=== PATIENT | male | born 1965 | race Caucasian/White ===

== ENCOUNTER 2017-05-05 08:55 | Emergency (ER) | payer BC ==
[2017-05-05 09:01] VITALS: TEMP 98.2; BMI 31.7
[2017-05-05 09:22] LABS: WHITE BLOOD COUNT 5.6 K/mm3 (4.0-10.8)
[2017-05-05] MEDS ORDERED: ASPIRIN 81 MG CHEWABLE TABLETS PO ONE (09:40)
[2017-05-05 09:52] LABS: ALBUMIN 3.3 g/dl (3.5-5.0); ALK PHOS 256 U/L (32-92); ANION GAP 16 (8-16); BILIRUBIN,TOTAL 1.5 mg/dl (0.2-1.0); CO2 19 mmol/L (22-28); GLUCOSE,RANDOM 117 mg/dl (74-106); SGOT/AST 28 U/L (10-42); SGPT/ALT 26 U/L (10-40); TOT PROT 6.6 g/dl (6.4-8.3)
--- NOTE | 2017-05-05 09:52 | PDOC ---
History of Present Illness - General Chief Complaint: Weakness Stated Complaint: SENT FOR EKG EVAL Time Seen by Provider: 05/05/17 09:01 History Source: Patient Exam Limitations: No Limitations - History of Present Illness Initial Comments: 05/05/17 09:52 51 yo M with h/o HTN, HLD, ESRD on dialysis (since ) via subclavian tunneled cathetar, here for abnormal EKG. pt states he saw a new doctor on thursday (4 days ago) . was being evaluated for preop evaluation for peritoneal dialysis cathetar placement scheduled for tomorrow 05/06/17. has had some fatigue, peripheral edema, decreased appetite and sleep, and dry nonproductive cough. denies chest pain. no orthopnea or PND. has noted bilateral peripheral edema. no f/c no n/v. pt states does have a family h/o father with NH ( ) at 62yo. pt has never had a stress test, does not have a support merchandiser. pt pcp dr. canales, no longer seeing him. thursday saw dr. Salgado [phone][address] scheduled to see Dr. Ramos ( vascular surgeon ) 05/05/17 10:40 05/05/17 12:31 Past History - Past Medical History Allergies/Adverse Reactions: Allergies Allergy/AdvReac Type Severity Reaction Status Date / Time Penicillins Allergy Intermediate Verified 05/05/17 08:57 Home Medications: Ambulatory Orders Carvedilol [Coreg] 25 mg PO BID #60 tablet 10/01/16 Calcium Acetate 0 mg PO TID 05/05/17 Valsartan [Diovan] 160 mg PO DAILY 05/05/17 Diabetes: Yes (DIET CONTROLLED) Dialysis: No (not yet ) Disorders: Yes (RENAL INSUFFICIENCY;no hd yet) HTN: Yes Hypercholesterolemia: No Other medical history: DIALYSIS - Psycho/Social/Smoking Cessation Hx Anxiety: No Suicidal Ideation: No Smoking Status: No Smoking History: Never smoked Have you smoked in the past 12 months: No Number of Cigarettes Smoked Daily: 0 Hx Alcohol Use: Yes Drug/Substance Use Hx: No Substance Use Type: Alcohol Hx Substance Use Treatment: No Review of Systems - Review of Systems Constitutional: No: Chills, Diaphoresis, Fever Respiratory: Yes: Cough, Other (dry cough). No: Orthopnea, SOB with Exertion, Productive cough Cardiac (ROS): No: Chest Pain, Edema ABD/GI: No: Abdominal Distended Musculoskeletal: No: Back Pain, Gout Neurological: No: Headache, Numbness All Other Systems: Reviewed and Negative *Physical Exam - Vital Signs Last Vital Signs Temp Pulse Resp BP Pulse Ox 98.2 F 90 18 161/98 100 05/05/17 08:56 05/05/17 08:56 05/05/17 08:56 05/05/17 08:56 05/05/17 08:56 - Physical Exam General Appearance: Yes: Appropriately Dressed Neck: positive: Trachea midline Respiratory/Chest: positive: Lungs Clear, Normal Breath Sounds Cardiovascular: positive: Regular Rhythm, Regular Rate, S1, S2 Vascular Pulses: Dorsalis-Pedis (R): 2+, Doralis-Pedis (L): 2+ Gastrointestinal/Abdominal: positive: Normal Bowel Sounds, Flat, Soft. negative : Tender, Pulsatile Mass Musculoskeletal: positive: Normal Inspection. negative: CVA Tenderness Integumentary: positive: Normal Color, Dry, Warm Neurologic: positive: certified medical asst II-XII NML intact, Fully Oriented, Alert, Normal Mood/ Affect, Motor Strength 5/5 Heart Score/ECG Review #1 General ECG Interpretation: Sinus Rhythm, Normal Rate, Normal Intervals, No acute ischemic changes (TWI I, AVL, V2 - V6) Compared to previous ECG there are: Other (comparison 09/2016) - ECG Intrepretation Rhythm: Regular Rhythm - [place]: Normal ED Treatment Course - LABORATORY CBC & Chemistry Diagram: 05/05/17 09:10 05/05/17 09:10 - RADIOLOGY Radiology Studies Ordered: Category Date Time Status CHEST PA & LAT [RAD] Stat Radiology 05/05/17 09:38 Ordered Medical Decision Making - Medical Decision Making 05/05/17 10:15 51 yo M with /o DM CKD HTN HLD here wtih cough fatigue and abnormal EKG. no change from our records 09/26 although signs of CHF on exam with peripheral edema. differential: pna, chf, chf acs, plan cxr ekg labs trop asa. will d/w pcp [phone] Stefan? 05/05/17 12:31 cxr no acute disaease process. initial trop normal. ekg unchanged from ekg in september. hgb 11. dr. salgado and dr. dunn paged to arrange care. 05/05/17 12:59 d/w dr salgado, pt will require nuclear stress or stress as outpt for procedure clearance. pt does not wish to followup with dr. salgado. d/w dr ramos. per rachel the procedure was not scheduled, yet still pending clearance. recommend follow up with DR Billingsley or Dr Dior for cardiac clearance. Office called, sched appt with DR BARRIOS for May 13 at 3 pm. pt given phone number and dc home. 05/05/17 13:47 dW pt hot stick worker Dr Quezada, informed pt will require further clearance prior to initiating peritoneal dialysis. sched with dr. barrios. pt freedom go to [facility] directly following DC today for dialysis, confirmed with dialysis center at [facility]. *DC/Admit/Observation/Transfer Diagnosis at time of Disposition: Abnormal EKG - Discharge Dispostion Disposition: HOME Condition at time of disposition: Improved - Referrals Referrals: Abner Barrios MD [Staff Physician] - - Patient Instructions Printed Discharge Instructions: Electrocardiogram, DI for Dialysis Additional Instructions: you need to follow up with support merchandiser DR BARRIOS on May 13, at 3 pm. do not miss this appointment. go directly to dialysis today followign your ED visit. return for any problems or concerns. you were given copy of your EKG and your labs from today visit.
[2017-05-05] MEDS ORDERED: ASPIRIN 81 MG CHEWABLE TABLETS ONE (09:53)
[2017-05-05 09:54] LABS: BASOPHIL 0.6 % (0-2.0); EOSINOPHIL 2.3 % (0-4.5); MCH 36.2 pg (25.7-33.7); MCHC 33.6 g/dl (32.0-35.9); MEAN CELL VOLUME 107.9 fl (80-96); NEUTROPHILS 67.1 % (42.8-82.8); PLATELET COUNT 170 K/MM3 (134-434); RDW 17.4 % (11.9-15.9)
[2017-05-05 10:14] LABS: CREATININE 10.3 mg/dl (0.6-1.3)
[2017-05-05 12:22] LABS: TROPONIN I (DFP) 0.03 ng/ml (0.03-0.50)
[2017-05-05 13:24] VITALS: BP 152/97; PULSE 82
[2017-05-05 17:20] LABS: HYPOCHROMIA 1+
[2017-05-05 17:21] LABS: ANISOCYTOSIS 1+; PLATELET ESTIMATE ADEQUATE (NORMAL)
--- NOTE | 2017-05-05 21:25 | EKG ---
Test Reason : Blood Pressure : / mmHG Vent. Rate : 090 BPM Atrial Rate : 090 BPM P-R Int : 170 ms QRS Dur : 098 ms QT Int : 434 ms P-R-T Axes : 044 -72 133 degrees QTc Int : 530 ms NORMAL SINUS RHYTHM INCOMPLETE RBBB LEFT ANTERIOR FASCICULAR BLOCK T WAVE ABNORMALITY, CONSIDER ANTEROLATERAL ISCHEMIA PROLONGED QT ABNORMAL ECG WHEN COMPARED WITH ECG OF 27-JUL-2000 00:49, INCOMPLETE RBBB IS NOW PRESENT LEFT ANTERIOR FASCICULAR BLOCK IS NOW PRESENT ST ELIVATIONS IN RIGHT PRECORDIAL LEADS SUGGESTING ANTEROSEPTAL RI ACUTE AND OR RECENT T WAVE INVERSION NO LONGER EVIDENT IN INFERIOR LEADS T WAVE INVERSION NOW EVIDENT IN ANTEROLATERAL LEADS FOLLOW UP TRACING ARE RECOMMENDED. SPOKE TO AT [facility]. PATIENT TO BE RECALLED TO ER. Confirmed by SHEIKH PABLO, EWELINA ([id number]) on 05/05/2017 9:25:16 PM Referred By: JANETTE OLIVAS Confirmed By:EWELINA GARNER MD
--- NOTE | 2017-05-05 22:37 | PDOC ---
Patient Follow-up (Call Back) - Post ED Follow - Up Chief Complaint: abn ekg Condition at time of discharge: Improved Disposition at time of original discharge: HOME Reason for Call Back: Complaint/Condition F/U Signs/Symptoms Improved: Yes - Disposition Additional Instructions/Notes: 21:30 Received a call from the bariatric program coordinator regarding this patient's EKG. The bariatric program coordinator is reading the EKG has an acute anteroseptal CT. The patient was discharged home. The patient was called at home and spoke with the patient directly. The patient said that he had no chest pain and no complaints. The patient was told that he needed to go to [facility] emergency department immediately as he is cardiogram showed that he could be having a heart attack. Patient said he felt fine that he did not want to go tonight that he was tired and that he would go to the emergency room in the morning It was re-stressed to the patient the importance of going to the emergency room tonight.
== END 2017-05-05 14:01 | disposition home or self-care (01) ==
LOC: FER 08:55
DX: R94.31 Abnormal electrocardiogram [ECG] [EKG] (principal); I12.9 Hypertensive chronic kidney disease with stage 1 through stage 4 chronic kidney disease, or unspecified chronic kidney disease; N18.9 Chronic kidney disease, unspecified; Z99.2 Dependence on renal dialysis
CPT/HCPCS: 36415; 71020-TC; 80053; 82550; 84484; 85025; 93005; 99284-25

== ENCOUNTER 2017-05-07 06:06 | Emergency (ER) | payer BC ==
[2017-05-07 06:41] VITALS: TEMP 98.5; BMI 31.7
--- NOTE | 2017-05-07 08:23 | PDOC ---
History of Present Illness - General Chief Complaint: Lightheaded Stated Complaint: DIZZINESS Time Seen by Provider: 05/07/17 07:22 History Source: Patient Exam Limitations: No Limitations - History of Present Illness Initial Comments: 05/07/17 08:29 51-year-old male presents to the ED with complaints of dizziness and lightheadedness while driving himself to dialysis this morning. Patient states has history of hypertension, diabetes and is presently pending peritoneal dialysis since he is currently receiving dialysis through a right Hemo-Cath. Patient states on Thursday went to [facility] emergency department for EKG and blood work for preop clearance in order to receive the catheter. Patient states when he became dizzy had no visual changes, headache, nausea, chest pain, shortness of breath, or weakness. Patient is followed by Dr. Quezada cuff maker who manages his medical comorbidities also. Presenting Symptoms: Dizziness Timing/Duration: reports: intermittent Severity/Quality: reports: mild Activities at Onset: reports: none Nitro Today/Relief: Yes: no nitro taken today Aspirin Received prior to arrival (Core Measure): Yes: no aspirin today Beta Cami given by EMS (Core Measure): No Beta Cami taken at Home (Core Measure): No Associated Symptoms: Yes: Dizziness Past History - Travel Traveled outside of the country in the last 30 days: No Close contact w/someone who was outside of country & ill: No - Past Medical History Allergies/Adverse Reactions: Allergies Allergy/AdvReac Type Severity Reaction Status Date / Time Penicillins Allergy Intermediate Verified 05/07/17 06:15 Home Medications: Ambulatory Orders Carvedilol [Coreg] 25 mg PO BID #60 tablet 10/01/16 Calcium Acetate 0 mg PO TID 05/05/17 Valsartan [Diovan] 160 mg PO DAILY 05/05/17 Diabetes: Yes (DIET CONTROLLED) Dialysis: Yes Disorders: Yes (RENAL INSUFFICIENCY) HTN: Yes Hypercholesterolemia: No - Surgical History Other Surgical History: 05/07/17 08:29 rt hemocath - Psycho/Social/Smoking Cessation Hx Anxiety: No Suicidal Ideation: No Smoking Status: No Smoking History: Never smoked Have you smoked in the past 12 months: No Number of Cigarettes Smoked Daily: 0 Information on smoking cessation initiated: No Hx Alcohol Use: No Drug/Substance Use Hx: No Substance Use Type: Alcohol Hx Substance Use Treatment: No Patient Lives Alone: No Review of Systems - Review of Systems Able to Perform ROS?: Yes Constitutional: No: Symptoms Reported HEENTM: No: Symptoms Reported Respiratory: No: Symptoms reported Cardiac (ROS): Yes: Lightheadedness ABD/GI: No: Symptoms Reported : No: Symptoms Reported Musculoskeletal: No: Muscle Weakness Neurological: Yes: Dizziness Hematologic/Lymphatic: No: Symptoms Reported *Physical Exam - Vital Signs Last Vital Signs Temp Pulse Resp BP Pulse Ox 98.5 F 80 18 162/96 97 05/07/17 06:16 05/07/17 14:50 05/07/17 14:50 05/07/17 14:50 05/07/17 14:50 - Physical Exam General Appearance: Yes: Nourished, Appropriately Dressed. No: Apparent Distress HEENT: positive: EOMI, ENEDINA. negative: Pale Conjunctivae Neck: positive: Supple Respiratory/Chest: positive: Lungs Clear, Normal Breath Sounds, Other (rt hemocath site intact). negative: Respiratory Distress, Accessory Muscle Use Cardiovascular: positive: Regular Rhythm, Regular Rate. negative: Murmur Gastrointestinal/Abdominal: positive: Soft. negative: Tenderness Extremity: positive: Normal Capillary Refill. negative: Pedal Edema Integumentary: positive: Normal Color, Warm, Moist Neurologic: positive: Normal Mood/Affect, Motor Strength 5/5 (ambulatory) Heart Score/ECG Review #2 ECG reviewed & interpreted by me at: 14:30 General ECG Interpretation: Sinus Rhythm Compared to previous ECG there are: No significant change - ECG Intrepretation Rhythm: Regular Rhythm (rate 89 with prolonged QT at 428 ms . inverted T waves noted in lateral leads. unchanged from EKG noted May 05) ED Treatment Course - LABORATORY CBC & Chemistry Diagram: 05/07/17 07:24 05/07/17 07:24 - ADDITIONAL ORDERS Additional order review: Laboratory Results 05/07/17 05/07/17 05/07/17 12:23 07:31 07:24 Sodium 133 L Potassium 5.2 H Chloride 97 L D Carbon Dioxide 22 Anion Gap 14 BUN 45 H Creatinine 7.9 H* Creat Clearance w eGFR 7.31 POC Glucometer 128.75753 Random Glucose 99 D Calcium 6.9 L* Total Bilirubin 0.4 D AST 89 H D ALT 60 D Alkaline Phosphatase 407 H Creatine Kinase 85 89 Troponin I 0.02 D 0.03 Total Protein 6.7 Albumin 2.7 L D 05/07/17 05/07/17 07:31 07:24 RBC 2.97 L MCV 110.6 H MCHC 33.5 RDW 17.5 H D MPV 9.6 Neutrophils % 50.3 D Lymphocytes % 32.7 D Monocytes % 11.8 H Eosinophils % 5.0 H D Basophils % 0.2 POC Glucometer 128.33262 - RADIOLOGY Radiology Studies Ordered: Category Date Time Status CHEST X-RAY PORTABLE* [RAD] Stat Radiology 05/07/17 07:23 Completed - Medications Given in the ED: ED Medications Discontinued Medications Generic Name Dose Route Start Last Admin Trade Name Freq PRN Reason Stop Dose Admin Aspirin 162 mg 05/07/17 10:48 05/07/17 11:18 Asa - PO 05/07/17 10:49 162 mg ONCE ONE Administration Medical Decision Making - Medical Decision Making 05/07/17 08:02 Patient here for episodic dizziness and lightheadedness while driving. Patient states did not take his blood pressure medication this morning or his diabetic medication this morning since he was going to dialysis. Patient states had no other associated symptoms. Patient does mention an abnormal EKG on Thursday that was done at a local ER and was sent home. Patient failed to mention that he was supposed to come back to the ER after being called at home due to recommendations of fur machine operator reading the EKG. Patient concerning for ACS, hypoglycemia, infection, and anemia. Patient ordered for blood work, EKG, chest x-ray, and BGM 05/07/17 09:05 Laboratory Tests 05/05/17 05/07/17 05/07/17 09:10 07:24 07:31 WBC 4.3 RBC 2.97 L Hgb 11.0 L D Hct 32.8 L D MCV 110.6 H Plt Count 116 L D Monocytes % 9.7 11.8 H Eosinophils % 2.3 5.0 H D POC Glucometer 128.48781 05/07/17 10:31 Laboratory Tests 05/07/17 07:24 Sodium 133 L Potassium 5.2 H Chloride 97 L D Carbon Dioxide 22 Anion Gap 14 BUN 45 H Creatinine 7.9 H* Creat Clearance w eGFR 7.31 Random Glucose 99 D Calcium 6.9 L* Total Bilirubin 0.4 D AST 89 H D ALT 60 D Alkaline Phosphatase 407 H Creatine Kinase 89 Troponin I 0.03 Albumin 2.7 L D 05/07/17 10:[address] Quezada and aware of patient's ER visit. I am waiting a callback from Dr. Sophie Levine since patient has an appointment with him as a new patient on Thursday. Patient remains asymptomatic. 05/07/17 10:[address] Sophie Carrillo who states if the patient remains asymptomatic to repeat an EKG and troponin in 6 hours along with administering 162 mg of baby aspirin. He reviewed the patient's chart extensively and has changed patient's appointment to tomorrow at 11am. 05/07/17 14:22 Laboratory Tests 05/07/17 12:23 Creatine Kinase 85 Troponin I 0.02 D Patient remains asymptomatic. Vital signs stable. Patient is to go to dialysis at 3 PM today and follow-up with Dr. Barrios tomorrow at 11 AM. Awning Hanger was updated of plan. *DC/Admit/Observation/Transfer Diagnosis at time of Disposition: Dizziness - Discharge Dispostion Disposition: HOME Condition at time of disposition: Good - Referrals Referrals: Abner Barrios MD [Staff Physician] - - Patient Instructions Printed Discharge Instructions: DI for Dizziness-Nonvertigo Additional Instructions: Please go directly to dialysis today at 3 PM. Please follow up with the fur machine operator Dr. Barrios tomorrow 11 AM. Return to ED if symptoms worsen or return.
[2017-05-07 08:47] LABS: BASOPHIL 0.2 % (0-2.0); MCHC 33.5 g/dl (32.0-35.9); MEAN CELL VOLUME 110.6 fl (80-96); MEAN PLT VOLUME 9.6 fl (7.5-11.1); NEUTROPHILS 50.3 % (42.8-82.8); PLATELET COUNT 116 K/MM3 (134-434); RDW 17.5 % (11.9-15.9); WHITE BLOOD COUNT 4.3 K/mm3 (4.0-10.0)
[2017-05-07 09:05] LABS: ALBUMIN 2.7 g/dl (3.4-5.0); ANION GAP 14 (8-16); BILIRUBIN,TOTAL 0.4 mg/dL (0.2-1.0); CO2 22 mmol/L (21-32); GLUCOSE,RANDOM 99 mg/dL (74-106); SGOT/AST 89 U/L (15-37); SGPT/ALT 60 U/L (12-78)
[2017-05-07 09:12] LABS: ALK PHOS 407 U/L (45-117); TOT PROT 6.7 g/dl (6.4-8.2); TROPONIN I 0.03 ng/ml (0.00-0.05)
[2017-05-07 09:19] LABS: CALCIUM 6.9 mg/dL (8.5-10.1); CREATININE 7.9 mg/dL (0.7-1.3)
[2017-05-07] MEDS ORDERED: ASPIRIN 81 MG CHEWABLE TABLETS PO ONE (10:48)
[2017-05-07] MEDS ORDERED: ASPIRIN 81 MG CHEWABLE TABLETS ONE (11:15)
--- NOTE | 2017-05-07 11:50 | EKG ---
Test Reason : Blood Pressure : / mmHG Vent. Rate : 089 BPM Atrial Rate : 089 BPM P-R Int : 176 ms QRS Dur : 094 ms QT Int : 428 ms P-R-T Axes : 053 -60 133 degrees QTc Int : 520 ms NORMAL SINUS RHYTHM POSSIBLE LEFT ATRIAL ENLARGEMENT PULMONARY DISEASE PATTERN LEFT ANTERIOR FASCICULAR BLOCK T WAVE ABNORMALITY, CONSIDER ANTEROLATERAL ISCHEMIA PROLONGED QT ABNORMAL ECG WHEN COMPARED WITH ECG OF 05-MAY-2017 09:05, T WAVE INVERSION LESS EVIDENT IN LATERAL LEADS Confirmed by MARC WALDRON MD ([id number]) on 05/07/2017 11:50:40 AM Referred By: Confirmed By:MARC WALDRON MD
[2017-05-07 14:13] LABS: TROPONIN I 0.02 ng/ml (0.00-0.05)
[2017-05-07 14:51] VITALS: BP 162/96; PULSE 80
--- NOTE | 2017-05-07 15:38 | EKG ---
Test Reason : Blood Pressure : / mmHG Vent. Rate : 087 BPM Atrial Rate : 087 BPM P-R Int : 166 ms QRS Dur : 092 ms QT Int : 438 ms P-R-T Axes : 023 -58 177 degrees QTc Int : 527 ms POOR DATA QUALITY, INTERPRETATION MAY BE ADVERSELY AFFECTED NORMAL SINUS RHYTHM POSSIBLE LEFT ATRIAL ENLARGEMENT PULMONARY DISEASE PATTERN LEFT ANTERIOR FASCICULAR BLOCK T WAVE ABNORMALITY, CONSIDER ANTEROLATERAL ISCHEMIA ABNORMAL ECG WHEN COMPARED WITH ECG OF 07-MAY-2017 07:45, NONSPECIFIC T WAVE ABNORMALITY, WORSE IN INFERIOR LEADS Confirmed by MARC WALDRON MD ([id number]) on 05/07/2017 3:37:35 PM Referred By: Confirmed By:MARC WALDRON MD
== END 2017-05-07 14:52 | disposition home or self-care (01) ==
LOC: JER 06:06
DX: R42 Dizziness and giddiness (principal); E11.9 Type 2 diabetes mellitus without complications; I12.0 Hypertensive chronic kidney disease with stage 5 chronic kidney disease or end stage renal disease; E11.22 Type 2 diabetes mellitus with diabetic chronic kidney disease; N18.6 End stage renal disease; N17.8 Other acute kidney failure; Z99.2 Dependence on renal dialysis
CPT/HCPCS: 36415; 71010-TC; 80053; 82550; 84484; 85025; 93005; 93010; 99282-25

== ENCOUNTER 2017-07-29 17:01 | Inpatient (IN) | payer BC ==
--- NOTE | 2017-07-29 17:21 | PDOC ---
History of Present Illness <Adrian Moe - Last Filed: 07/29/17 20:30> - History of Present Illness Initial Comments: 07/29/17 17:43 The patient is a 51-year-old male, with a significant past medical history of hypertension, diabetes and is presently pending peritoneal dialysis since he is currently receiving dialysis through a right Hemo-Cath, who presents to the ED with complaints of subjective fevers, nausea, vomiting, diarrhea, cough and sore throat today. He denies blood in his emesis or diarrhea. The patient states he has an appointment with his home hospice aide on August 19 for a workup sarahy cleared for peritoneal dialysis. He denies visual changes, headache, chest pain, shortness of breath, or weakness. Patient is followed by Dr. Quezada (slip bridge operator) who also manages his medical comorbidities. <Neda Bennett - Last Filed: 07/29/17 21:01> - General Chief Complaint: Nausea/Vomiting Stated Complaint: SHORTNESS OF BREATH Time Seen by Provider: 07/29/17 17:20 Past History - Past Medical History Diabetes: Yes (DIET CONTROLLED) Dialysis: Yes (t,,sa) Disorders: Yes (RENAL INSUFFICIENCY) HTN: Yes Hypercholesterolemia: No - Suicide/Smoking/Psychosocial Hx Smoking Status: No Smoking History: Never smoked Have you smoked in the past 12 months: No Number of Cigarettes Smoked Daily: 0 Information on smoking cessation initiated: No Hx Alcohol Use: No (past) Drug/Substance Use Hx: No Substance Use Type: Alcohol Hx Substance Use Treatment: No <Adrian Moe - Last Filed: 07/29/17 20:30> <Neda Bennett - Last Filed: 07/29/17 21:01> - Past Medical History Allergies/Adverse Reactions: Allergies Allergy/AdvReac Type Severity Reaction Status Date / Time Penicillins Allergy Intermediate Verified 05/07/17 06:15 Home Medications: Ambulatory Orders Carvedilol [Coreg] 25 mg PO BID #60 tablet 10/01/16 Calcium Acetate 0 mg PO TID 05/05/17 Valsartan [Diovan] 160 mg PO DAILY 05/05/17 Review of Systems - Review of Systems Able to Perform ROS?: Yes Comments:: 07/29/17 17:47 GENERAL/CONSTITUTIONAL: (+) subjective fever. No chills. No weakness. HEAD, EYES, EARS, NOSE AND THROAT: (+) sore throat.No change in vision. No ear pain or discharge. CARDIOVASCULAR: No chest pain or shortness of breath. RESPIRATORY: (+) cough, No wheezing, or hemoptysis. GASTROINTESTINAL: (+) nausea, vomiting, diarrhea. No constipation. GENITOURINARY: No dysuria, frequency, or change in urination. MUSCULOSKELETAL: No joint or muscle swelling or pain. No neck or back pain. SKIN: No rash NEUROLOGIC: No headache, vertigo, loss of consciousness, or change in strength/ sensation. ENDOCRINE: No increased thirst. No abnormal weight change. HEMATOLOGIC/LYMPHATIC: No anemia, easy bleeding, or history of blood clots. ALLERGIC/IMMUNOLOGIC: No hives or skin allergy. <Neda Bennett - Last Filed: 07/29/17 21:01> *Physical Exam - Vital Signs Last Vital Signs Temp Pulse Resp BP Pulse Ox 97.9 F 83 20 124/69 100 07/29/17 17:07 07/29/17 17:07 07/29/17 17:07 07/29/17 17:07 07/29/17 17:07 <Adrian Moe - Last Filed: 07/29/17 20:30> - Vital Signs Last Vital Signs Temp Pulse Resp BP Pulse Ox 97.9 F 83 20 124/69 100 07/29/17 17:07 07/29/17 17:07 07/29/17 17:07 07/29/17 17:07 07/29/17 17:07 - Physical Exam Comments: 07/29/17 17:49 GENERAL: Awake, alert, and fully oriented, in no acute distress HEAD: No signs of trauma EYES: PERRLA, EOMI, sclera anicteric, conjunctiva clear ENT: Auricles normal inspection, hearing grossly normal, nares patent, oropharynx clear without exudates. Moist mucosa NECK: Normal ROM, supple, no lymphadenopathy, JVD, or masses LUNGS: Breath sounds equal, clear to auscultation bilaterally. No wheezes, and no crackles HEART: Regular rate and rhythm, normal S1 and S2, no murmurs, rubs or gallops ABDOMEN: Soft, nontender, normoactive bowel sounds. No guarding, no rebound. No masses EXTREMITIES: Normal range of motion, no edema. No clubbing or cyanosis. No cords , erythema, or tenderness NEUROLOGICAL: Cranial nerves II through XII grossly intact. Normal speech, normal gait SKIN: (+) extreme pallor. right anterior chest hemocath clean, dry, intact. Warm , Dry, normal turgor, no rashes or lesions noted. <Neda Bennett - Last Filed: 07/29/17 21:01> Heart Score/ECG Review #1 ECG reviewed & interpreted by me at: 17:25 General ECG Interpretation: Sinus Rhythm, Normal Rate Compared to previous ECG there are: No significant change (compared with ECG from 05/07/17) <Neda Bennett - Last Filed: 07/29/17 21:01> ED Treatment Course - LABORATORY CBC & Chemistry Diagram: 07/29/17 18:00 07/29/17 18:00 <Adrian Moe - Last Filed: 07/29/17 20:30> - LABORATORY CBC & Chemistry Diagram: 07/29/17 18:00 07/29/17 18:00 <Neda Bennett - Last Filed: 07/29/17 21:01> Medical Decision Making - Critical Care Time Total Critical Care Time (minutes): 60 Critical Care Statement: The care of this patient involved high complexity decision making to prevent further life threatening deterioration of the patient 's condition and/or to evaluate & treat vital organ system(s) failure or risk of failure. - Medical Decision Making 07/29/17 20:58 Neda Meza FIRE PREVENTION FORESTER in the ICU, accepts the patient to the ICU floor. Pt case discussed with [facility] Admitting Hospitalist Physician, Dr. Burton and the admitting resident. I will call Dr. Quezada for orders The dialysis nurse is coming to the hospital from home at this time. <Neda Bennett - Last Filed: 07/29/17 21:01> *DC/Admit/Observation/Transfer - Discharge Dispostion Admit: Yes - Attestations Physician Attestion: 07/29/17 17:21 I, Dr. Adrian Moe, attest that this document has been prepared under my direction and personally reviewed by me in its entirety. I further attest, that it accurately reflects all work, treatment, procedures and medical decision -making performed by me. <Adrian Moe - Last Filed: 07/29/17 20:30> - Attestations Scribe Attestion: 07/29/17 17:50 Documentation prepared by Neda Bennett, acting as director medical writing for Adrian Moe DO <Neda Bennett - Last Filed: 07/29/17 21:01> Diagnosis at time of Disposition: Acute hyperkalemia, End stage chronic kidney disease, Dialysis patient, Anemia , CKD (chronic kidney disease) - Discharge Dispostion Condition at time of disposition: Improved - Referrals Referrals: Jono Perez [Primary Care Provider] -
[2017-07-29 18:09] LABS: BASOPHIL 0.3 % (0-2.0); MCH 37.5 pg (25.7-33.7); MCHC 32.9 g/dl (32.0-35.9); MEAN CELL VOLUME 114.2 fl (80-96); MEAN PLT VOLUME 9.6 fl (7.5-11.1); NEUTROPHILS 84.9 % (42.8-82.8); PLATELET COUNT 170 K/MM3 (134-434); WHITE BLOOD COUNT 6.8 K/mm3 (4.0-10.0)
[2017-07-29 18:24] LABS: INR 1.3 (0.82-1.09); PROTHROMBIN TIME (PATIENT) 14.7 SEC (9.98-11.88)
[2017-07-29 18:27] LABS: ACTIVATED PTT 26.3 SECONDS (26.9-34.4)
[2017-07-29 18:52] LABS: ALBUMIN 2.3 g/dl (3.4-5.0); ANION GAP 22 (8-16); BILIRUBIN,TOTAL 0.5 mg/dL (0.2-1.0); CO2 15 mmol/L (21-32); GLUCOSE,RANDOM 203 mg/dL (74-106); SGOT/AST 34 U/L (15-37); SGPT/ALT 30 U/L (12-78); TOT PROT 5.2 g/dl (6.4-8.2)
[2017-07-29 18:58] LABS: ALK PHOS 218 U/L (45-117); CPK 67 IU/L (39-308); TROPONIN I 0.07 ng/ml (0.00-0.05)
[2017-07-29 19:02] LABS: CREATININE 11.8 mg/dL (0.7-1.3)
[2017-07-29] MEDS ORDERED: CALCIUM GLUCONATE 10% - 1,000 MG/10 ML VIAL IVPUSH ONE (19:03)
[2017-07-29] MEDS ORDERED: DEXTROSE 50%-WATER - 25 GM/50 ML VIAL IVPUSH ONE (19:18)
[2017-07-29] MEDS ORDERED: SODIUM BICARBONATE 8.4% 50 MEQ/50 ML DISP.SYRIN IVPUSH ONE (19:18)
[2017-07-29] MEDS ORDERED: INSULIN REGULAR HUMAN 100 UNITS/ML *VIAL IVPUSH ONE (19:18)
[2017-07-29 19:22] LABS: VENOUS PH 7.37 (7.32-7.42)
[2017-07-29 19:23] LABS: ANISOCYTOSIS 3+; HYPOCHROMIA 2+; MACROCYTOSIS 3+; PLATELET ESTIMATE ADEQUATE (NORMAL)
[2017-07-29 19:23] LABS: VENOUS BLOOD GAS HCO3 13.9 meq/L (19-25)
[2017-07-29] MEDS ORDERED: CALCIUM GLUCONATE 10% - 1,000 MG/10 ML VIAL ONE (19:23)
[2017-07-29] MEDS ORDERED: DEXTROSE 50%-WATER 25 GM/50 ML DISP.SYRIN ONE (19:23)
[2017-07-29] MEDS ORDERED: SODIUM BICARBONATE 8.4% - 50 ML ONE (19:23)
--- NOTE | 2017-07-29 22:13 | CONSULT ---
Consult Consult Specialty:: Pulmonary/Critical Care Reason for Consultation:: Hyperkalemia - History of Present Illness Chief Complaint: I felt very weak and missed dialysis. History of Present Illness: This is a 52-year-old gentleman with a past medical history of HTN, DM II and ESRD on iHD via a R hemo-cath who presents to the ED c/o cough, subjective fever and weakness with missed HD session (last dialyzed Thursday) found to be hyperkalemic and anemic now admitted to ICU for emergent HD. Briefly, Mr. Brar has non-anuric ESRD and receives iHD at his dialysis center via R chest hemo-cath. He last underwent a full HD session on Thursday and reports that he returned to his dry weight and received the full 3-hr treatment without incident. 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 His dialysis was rescheduled for yesterday but he reports feeling too weak to attend. He endorses cough, subjective fever and generalized weakness. He drinks 2 glasses of wine each night to help him sleep and reports his last drink last night. He does endorse "spitting up" after drinking the wine but denies that this was blood in his vomit. He endorses dark loose stools. He has never had a GIB in the past. He denies underlying liver disease and has never had signs of ETOH withdrawal. In the ED he was hemodynamically stable but found to be hyperkalemic to K 7 (w/o ECG changes) and anemic to 4.5. He received sodium bicarb, calcium, insulin and D50 and was ordered for 2 units PRBC. He was transferred to ICU for emergent dialysis. On arrival to ICU, Mr. Brar is awake and alert, very pale with the 1st unit PRBC infusing. Neprhology at bedside and HD pending. Given report of dark stools Protnoix bolus ordered. - History Source History Provided By: Patient Limitations to Obtaining History: No Limitations - Past Medical History Cardio/Vascular: Yes: HTN Renal/: Yes: Renal Failure, Renal Inusuff Endocrine: Yes: Diabetes Mellitus - Alcohol/Substance Use Hx Alcohol Use: Yes (2 glasses wine/day) History of Substance Use: reports: None - Smoking History Smoking history: Never smoked Have you smoked in the past 12 months: No Aproximately how many cigarettes per day: 0 - Social History ADL: Independent Home Medications - Allergies Allergies/Adverse Reactions: Allergies Allergy/AdvReac Type Severity Reaction Status Date / Time Penicillins Allergy Intermediate Verified 05/07/17 06:15 - Home Medications Home Medications: Ambulatory Orders Carvedilol [Coreg] 25 mg PO BID #60 tablet 10/01/16 Calcium Acetate 0 mg PO TID 05/05/17 Valsartan [Diovan] 160 mg PO DAILY 05/05/17 Family Disease History - Family Disease History Family Disease History: Diabetes: Brother (CVA), Heart Disease: Father Review of Systems - Review of Systems Constitutional: reports: Fever, Weakness Eyes: reports: No Symptoms HENT: reports: No Symptoms Neck: reports: No Symptoms Cardiovascular: reports: No Symptoms Respiratory: reports: Cough Gastrointestinal: reports: Diarrhea (dark stools) Genitourinary: reports: No Symptoms Musculoskeletal: reports: No Symptoms Integumentary: reports: No Symptoms Neurological: reports: No Symptoms Physical Exam Vital Signs: Vital Signs Temperature 97.6 F 07/29/17 20:52 Pulse Rate 89 07/29/17 20:52 Respiratory Rate 18 07/29/17 20:52 Blood Pressure 130/83 07/29/17 20:52 O2 Sat by Pulse Oximetry (%) 100 07/29/17 20:52 Constitutional: Yes: Calm (Pale) Eyes: Yes: Conjunctiva Clear, EOM Intact HENT: Yes: Atraumatic Neck: Yes: WNL Cardiovascular: Yes: Regular Rate and Rhythm, S1, S2 Respiratory: Yes: Regular, CTA Bilaterally Gastrointestinal: Yes: Normal Bowel Sounds, Soft Extremities: Yes: Cool, Pallor Edema: Yes Edema: LUE: 1+, RUE: 1+, LLE: 1+, RLE: 1+ Peripheral Pulses WNL: Yes Integumentary: Yes: WNL Neurological: Yes: Alert, Oriented Labs: CBC, BMP 07/29/17 18:00 07/29/17 18:00 Troponin, BNP 07/29/17 18:00 Troponin I 0.07 H D Imaging - Results Chest X-ray: Pending EKG: Pending Problem List - Problems (1) Acute hyperkalemia Code(s): E87.5 - HYPERKALEMIA (2) Anemia Code(s): D64.9 - ANEMIA, UNSPECIFIED (3) End stage chronic kidney disease Code(s): N18.6 - END STAGE RENAL DISEASE Z99.2 - DEPENDENCE ON RENAL DIALYSIS Assessment/Plan This is a 52-year-old gentleman with a past medical history of HTN, DM II and ESRD of iHD who presents to the ED with cough, subjective fever, weakness and recent missed iHD session found to be hyperkalemic and also anemic to Hgb 4.5 now admitted to ICU for emergent dialysis. -Continuous telemetry -Nephrology following, appreciate input -Emergent dialysis now -2 units PRBC, repeat Hgb after -Protonix bolus given report of dark stools, would consider GI consult -Guiac -ECG -Hold anti-HTNs -NPO for now -FS -LFTS and coags -Maintain large bore IVs -Maintain active type and Screen -Venodynes for DVT ppx Critical Care time: 35 mins BLAS Tucker
[2017-07-29] MEDS ORDERED: PANTOPRAZOLE SODIUM 40 MG VIAL IVPUSH ONE (22:24)
--- NOTE | 2017-07-29 22:25 | CONSULT ---
Consult Consult Specialty:: Nephrology Reason for Consultation:: ESRD and hyperkalemia - History of Present Illness Chief Complaint: weakness and fatigue History of Present Illness: Pt is a 52 year old male with pmhx of HTN, DM, anemia and ESRD who presents to the ER with weakness, fever and fatigue. He also complains of nausea. He was found to be hyperkalemic. He is not compliant with his dialysis treatments. He was last dialyzed on Thursday. He denies chest pain or shortness of breath. He denies cough. He complains of weakness and loss of energy. He denies blood in the stool or hematemesis. I was called to see him as a stat consult. - History Source History Provided By: Patient, Medical Record - Past Medical History Cardio/Vascular: Yes: CHF, HTN Renal/: Yes: Renal Failure, Renal Inusuff, Hemodialysis Endocrine: Yes: Diabetes Mellitus - Alcohol/Substance Use Hx Alcohol Use: Yes (2 glasses wine/day) History of Substance Use: reports: None - Smoking History Smoking history: Never smoked Have you smoked in the past 12 months: No Aproximately how many cigarettes per day: 0 - Social History ADL: Independent Home Medications - Allergies Allergies/Adverse Reactions: Allergies Allergy/AdvReac Type Severity Reaction Status Date / Time Penicillins Allergy Intermediate Verified 05/07/17 06:15 - Home Medications Home Medications: Ambulatory Orders Carvedilol [Coreg] 25 mg PO BID #60 tablet 10/01/16 Calcium Acetate 0 mg PO TID 05/05/17 Valsartan [Diovan] 160 mg PO DAILY 05/05/17 Family Disease History - Family Disease History Family Disease History: Diabetes: Brother (CVA), Heart Disease: Father Review of Systems - Review of Systems Constitutional: reports: Loss of Appetite, Malaise. denies: Chills, Fever Eyes: reports: No Symptoms HENT: reports: No Symptoms Neck: reports: No Symptoms Cardiovascular: reports: No Symptoms Respiratory: reports: No Symptoms Gastrointestinal: reports: Nausea Genitourinary: reports: No Symptoms Musculoskeletal: reports: Muscle Weakness Neurological: reports: No Symptoms Endocrine: reports: No Symptoms Hematology/Lymphatic: reports: No Symptoms Psychiatric: reports: No Symptoms Physical Exam Vital Signs: Vital Signs Temperature 97.6 F 07/29/17 20:52 Pulse Rate 89 07/29/17 20:52 Respiratory Rate 18 07/29/17 20:52 Blood Pressure 130/83 07/29/17 20:52 O2 Sat by Pulse Oximetry (%) 100 07/29/17 20:52 Constitutional: Yes: Calm Cardiovascular: Yes: S1, S2 Respiratory: Yes: CTA Bilaterally, On Nasal O2 Gastrointestinal: Yes: Soft Renal/: Yes: WNL Musculoskeletal: Yes: WNL Edema: Yes Edema: LLE: Trace, RLE: Trace Neurological: Yes: Oriented Psychiatric: Yes: Oriented Labs: Laboratory Tests 07/29/17 07/29/17 07/29/17 18:00 18:00 18:00 WBC 6.8 D Hgb 4.5 L* D Plt Count 170 D Sodium 140 Potassium 7.4 H* D Chloride 103 Carbon Dioxide 15 L D Anion Gap 22 H BUN 150 H* D Creatinine 11.8 H* D Creat Clearance w eGFR 4.58 Random Glucose 203 H D Lactic Acid 4.5 H* 07/29/17 18:12 WBC Hgb Plt Count Sodium Potassium Chloride Carbon Dioxide Anion Gap BUN Creatinine Creat Clearance w eGFR Random Glucose Lactic Acid 3.4 H* Assessment/Plan Current Medications Generic Name Dose Route Start Last Admin Trade Name Freq PRN Reason Stop Dose Admin Chlorhexidine Gluconate 1 applic 07/29/17 22:00 Hibiclens For Decolonization - TP HS KRISTEN Mupirocin 1 applic 07/29/17 22:00 Bactroban Ointment (For Decolonization) - NS 08/03/17 21:59 BID KRISTEN Impression 1. ESRD 2. DM 3. diabetic nephropathy 4. HTN 5. obesity 6. anemia 7. iron deficiency 8. CHF 9. anemia 10. hyperkalemia Plan - arranged for urgent HD - admitted pt to ICU - pt currently getting bedside dialysis - trasnfuse 2 units prbc and repeat hg - check post hd bmp and cbc - insulin d50 calcium and bicarb administered in ER - will likely dialyze again tomorrow - compliance remains a problem - follow cultures - discussed with ER earlier - discussed with ICU team Dr Quezada
[2017-07-29 22:30] VITALS: BMI 32.2
--- NOTE | 2017-07-29 22:43 | PN ---
Teaching Attending Note Name of Resident: Sarthak Montana ATTENDING PHYSICIAN STATEMENT I saw and evaluated the patient. I reviewed the resident's note and discussed the case with the resident. I agree with the resident's findings and plan as documented. SUBJECTIVE: 52 year old male presents complaining of fatigue , generalized weakness, subjective fever , sore throat and cough associated with nausea, vomiting and diarrhea x 2 days . Denies sick contacts . Missed his HD , last HD was 4 days ago . In the ED found to have hemoglobin 4.5 and elevated potassiom of 7.4 OBJECTIVE: Vital Signs Temperature 97.6 F 07/29/17 20:52 Pulse Rate 89 07/29/17 20:52 Respiratory Rate 18 07/29/17 20:52 Blood Pressure 130/83 07/29/17 20:52 O2 Sat by Pulse Oximetry (%) 100 07/29/17 20:52 Constitutional: Calm, severe pallor Cardiovascular: Yes: S1, S2 wnl Respiratory: CTA Bilaterally, On Nasal O2 Gastrointestinal: Soft, obese Renal/: WNL Musculoskeletal: Yes: WNL Edema: Yes Edema: LLE: Trace, RLE: Trace CBC, BMP 07/29/17 18:00 CMP Sodium 140 mmol/L (136-145) 07/29/17 18:00 Potassium 7.4 mmol/L (3.5-5.1) H* D 07/29/17 18:00 Chloride 103 mmol/L (98-107) 07/29/17 18:00 Carbon Dioxide 15 mmol/L (21-32) L D 07/29/17 18:00 Anion Gap 22 (8-16) H 07/29/17 18:00 BUN 150 mg/dL (7-18) H* D 07/29/17 18:00 Creatinine 11.8 mg/dL (0.7-1.3) H* D 07/29/17 18:00 Creat Clearance w eGFR 4.58 (>60) 07/29/17 18:00 Random Glucose 203 mg/dL (74-106) H D 07/29/17 18:00 Lactic Acid 3.4 mmol/L (0.4-2.0) H* 07/29/17 18:12 Calcium 7.0 mg/dL (8.5-10.1) L 07/29/17 18:00 Total Bilirubin 0.5 mg/dL (0.2-1.0) D 07/29/17 18:00 AST 34 U/L (15-37) D 07/29/17 18:00 ALT 30 U/L (12-78) D 07/29/17 18:00 Alkaline Phosphatase 218 U/L (45-117) H D 07/29/17 18:00 Creatine Kinase 67 IU/L (39-308) 07/29/17 18:00 Troponin I 0.07 ng/ml (0.00-0.05) H D 07/29/17 18:00 Total Protein 5.2 g/dl (6.4-8.2) L D 07/29/17 18:00 Albumin 2.3 g/dl (3.4-5.0) L 07/29/17 18:00 ASSESSMENT AND PLAN: 1. Sypthomatic anemia - acute - most recent known HB 9.5. Overt bleeding vs hemolysis vs worsening of chronic anemia. - occult blood stool - protonix IV 40 stat empirically - transfuse 2 units - consider LDH if further drop 2. ESRD - non compliance with therapy 3. Hyperkalemia - no EKG changes - HD emergent - telemetry 4. URI, gastroenteritis - likely viral - flu swab - fluids were given - follow lactate in AM 5. DVT PPX No pharmacological a/coagulation due to suspected bleeding
[2017-07-29] MEDS ORDERED: EPOETIN ALFA 10,000 UNIT/1 ML VIAL IVPUSH ONE (22:45)
--- NOTE | 2017-07-29 23:12 | HP ---
CHIEF COMPLAINT: Dizziness and weakness, nausea/vomiting/diarrhea/subj fever/chills/cough PCP: Dr. Quezada HISTORY OF PRESENT ILLNESS: Pt is a 52M with PMH HTN, DM, CKD (on HD missed appointment today), CHF, anemia (pt states his Hb was 9 at last HD) who presented to ED with dizziness and malaise. On questioning, pt admits to having missed his last 2 dialysis appointments due to feeling weak. Last dialysis was on Sat. Pt has a history of poor compliance with HD. Pt also states that he has had 2 days of nausea, nonbloody nonbilious vomiting, diarrhea (occasionally dark in color, without gross blood, 3-4 episodes per day) , subjective fever, chills, and cough. Pt denies sick contacts or eating questionable food (pt states he hasn't eaten since Sat due to nausea and malaise ). At this time, pt feels much better. Denies dizziness, nausea, chest pain, shortness of breath, abdominal pain. ER course was notable for: (1) labs significant for Hb 4.5, MCV 114, K 7.4, INR 1.3, Rn Pool 11.8, glucose 203 , lactic acid 3.4 (2) CXR unremarkable pending report (3) Recent Travel: denies PAST MEDICAL HISTORY: HTN, DM, CKD on HD, CHF, anemia PAST SURGICAL HISTORY: Right retinal detachment Social History: Smoking: denies Alcohol: denies Drugs: denies Family History: denies Allergies Penicillins Allergy (Intermediate, Verified 05/07/17 06:15) HOME MEDICATIONS: Home Medications Medication Instructions Recorded Carvedilol [Coreg] 25 mg PO BID #60 tablet 10/01/16 Calcium Acetate 0 mg PO TID 05/05/17 Valsartan [Diovan] 160 mg PO DAILY 05/05/17 REVIEW OF SYSTEMS CONSTITUTIONAL: fever, chills, diaphoresis, generalized weakness, malaise Absent: loss of appetite, weight change HEENT: throat pain Absent: rhinorrhea, nasal congestion, , throat swelling, difficulty swallowing , mouth swelling, ear pain, eye pain, visual changes CARDIOVASCULAR: Absent: chest pain, syncope, palpitations, irregular heart rate, lightheadedness , peripheral edema RESPIRATORY: cough, dyspnea with exertion Absent: , shortness of breath, orthopnea, wheezing, stridor, hemoptysis GASTROINTESTINAL: nausea, vomiting, diarrhea, Absent: abdominal pain, abdominal distension, constipation, melena, hematochezia GENITOURINARY: Absent: dysuria, frequency, urgency, hesitancy, hematuria, flank pain, genital pain MUSCULOSKELETAL: Absent: myalgia, arthralgia, joint swelling, back pain, neck pain SKIN: Absent: rash, itching, pallor HEMATOLOGIC/IMMUNOLOGIC: Absent: easy bleeding, easy bruising, lymphadenopathy, frequent infections ENDOCRINE: Absent: unexplained weight gain, unexplained weight loss, heat intolerance, cold intolerance NEUROLOGIC: dizziness Absent: headache, focal weakness or paresthesias, , unsteady gait, seizure, mental status changes, bladder or bowel incontinence PSYCHIATRIC: Absent: anxiety, depression, suicidal or homicidal ideation, hallucinations. PHYSICAL EXAMINATION Vital Signs - 24 hr 07/29/17 07/29/17 07/29/17 17:07 19:49 20:35 Temperature 97.9 F 97.5 F L Pulse Rate 83 Pulse Rate [ 88 87 Apical] Respiratory 20 18 18 Rate Blood Pressure 124/69 Blood Pressure 128/82 117/74 [Arm] O2 Sat by Pulse 100 100 100 Oximetry (%) 07/29/17 20:52 Temperature 97.6 F Pulse Rate Pulse Rate [ 89 Apical] Respiratory 18 Rate Blood Pressure Blood Pressure 130/83 [Arm] O2 Sat by Pulse 100 Oximetry (%) GENERAL: Awake, alert, and fully oriented, in no acute distress. Pale complexion HEAD: Normal with no signs of trauma. EYES: Right eye opaque. left pupil round and reactive to light, extraocular movements intact, sclera anicteric, conjunctiva clear and pale. No lid lag. EARS, NOSE, THROAT: oropharynx clear without exudates. Moist mucous membranes. NECK: Normal range of motion, supple without lymphadenopathy, JVD, or masses. LUNGS: Breath sounds equal, clear to auscultation bilaterally. No wheezes, and no crackles. No accessory muscle use. HEART: Regular rate and rhythm, normal S1 and S2 without murmur, rub or gallop. ABDOMEN: Soft, nontender, not distended, normoactive bowel sounds, no guarding, no rebound, no masses. No hepatomegaly or splenomegaly. MUSCULOSKELETAL: Normal range of motion at all joints. No bony deformities or tenderness. No CVA tenderness. UPPER EXTREMITIES: 2+ pulses, warm, well-perfused. No cyanosis. No clubbing. No peripheral edema. LOWER EXTREMITIES: 2+ pulses, warm, well-perfused. No calf tenderness. No peripheral edema. NEUROLOGICAL: Cranial nerves II-XII intact. Normal speech. Normal gait. PSYCHIATRIC: Cooperative. Good eye contact. Appropriate mood and affect. SKIN: Warm, dry, normal turgor, no rashes or lesions noted, normal capillary refill. Laboratory Results - last 24 hr 07/29/17 07/29/17 07/29/17 18:00 18:00 18:00 WBC 6.8 D RBC 1.19 L D Hgb 4.5 L* D Hct 13.6 L MCV 114.2 H MCH 37.5 H MCHC 32.9 RDW 17.0 H Plt Count 170 D MPV 9.6 Neutrophils % 84.9 H D Lymphocytes % 12.7 D Monocytes % 2.1 L D Eosinophils % 0.0 D Basophils % 0.3 Hypochromia 2+ Platelet Estimate Adequate Anisocytosis 3+ Macrocytosis 3+ PT with INR 14.70 H INR 1.30 H PTT (Actin FS) 26.3 L VBG pH POC VBG pCO2 POC VBG pO2 Mixed VBG HCO3 Sodium 140 Potassium 7.4 H* D Chloride 103 Carbon Dioxide 15 L D Anion Gap 22 H BUN 150 H* D Creatinine 11.8 H* D Creat Clearance w eGFR 4.58 Random Glucose 203 H D Lactic Acid Calcium 7.0 L Total Bilirubin 0.5 D AST 34 D ALT 30 D Alkaline Phosphatase 218 H D Creatine Kinase 67 Troponin I 0.07 H D Total Protein 5.2 L D Albumin 2.3 L Blood Type Antibody Screen Crossmatch Spec Expiration Date 07/29/17 07/29/17 07/29/17 18:00 18:00 18:12 WBC RBC Hgb Hct MCV MCH MCHC RDW Plt Count MPV Neutrophils % Lymphocytes % Monocytes % Eosinophils % Basophils % Hypochromia Platelet Estimate Anisocytosis Macrocytosis PT with INR INR PTT (Actin FS) VBG pH POC VBG pCO2 POC VBG pO2 Mixed VBG HCO3 Sodium Potassium Chloride Carbon Dioxide Anion Gap BUN Creatinine Creat Clearance w eGFR Random Glucose Lactic Acid 4.5 H* 3.4 H* Calcium Total Bilirubin AST ALT Alkaline Phosphatase Creatine Kinase Troponin I Total Protein Albumin Blood Type O POSITIVE Antibody Screen Negative Crossmatch See Detail Spec Expiration Date 07/29/17 07/29/17 19:00 19:10 WBC RBC Hgb Hct MCV MCH MCHC RDW Plt Count MPV Neutrophils % Lymphocytes % Monocytes % Eosinophils % Basophils % Hypochromia Platelet Estimate Anisocytosis Macrocytosis PT with INR INR PTT (Actin FS) VBG pH 7.37 POC VBG pCO2 24.2 L POC VBG pO2 53.3 H Mixed VBG HCO3 13.9 L* Sodium Potassium Chloride Carbon Dioxide Anion Gap BUN Creatinine Creat Clearance w eGFR Random Glucose Lactic Acid Calcium Total Bilirubin AST ALT Alkaline Phosphatase Creatine Kinase Troponin I Total Protein Albumin Blood Type O POSITIVE Antibody Screen Cancelled Crossmatch Spec Expiration Date Cancelled ASSESSMENT/PLAN: Pt is a 52M w/ PMH HTN, DM, ESRD (on HD missed appointment today), CHF, anemia ( pt states his Hb was 9 at last HD) who presented to ED with dizziness, weakness , and URI symptoms. Pt is being admitted to ICU for Hyperkalemia, severe symptomatic anemia, and HD. #Severe Symptomatic Anemia -Hb 4.5 in ED -Pt receiving 2 units PRBC -If Hb continues to fall, consider hemolysis as a source -f/u CBC -f/u occult blood #Hyperkalemia -K of 7.4 in ED -Pt got Ins, D50, Ca Gluconate in ED -Pt went for HD -f/u CMP #Lactic acidosis -LA 4.5 -> 3.4 -f/u repeat LA after HD #Troponin -mildly elevated troponin -likely 2/2 CKD -f/u repeat Tn #Likely viral infection -URI symptoms -Pt feeling much better -Flu swab #Liver mass -Abd U/S showing hepatic mass -Unclear etiology -GI consult Dr. Denis #ESRD -Missed last 2 HD sessions. Pt has history of poor compliance -Rn Pool 11.8 -Receiving HD #Class II-III CHF -per Carido note from prior visit -no signs of pulm congestion or pedal edema #DM -diet controlled -glc 203 -pt received Ins in ED along with D50 -f/u labs in am -dm diet #HTN -BP stable at this time -reevaluate in am to restart home meds #FEN -not on fluids. In HD -hyper K -DM/low Na diet #Dispo -admit to ICU for hyper K, severe symptomatic anemia, HD #PPx -DVT: HSQ. SCDs -GI: Protonix Sarthak Montana MD PGY-1 Case discussed with attending and senior Visit type - Emergency Visit Emergency Visit: Yes ED Registration Date: 07/29/17 Care time: The patient presented to the Emergency Department on the above date and was hospitalized for further evaluation of their emergent condition. - New Patient This patient is new to me today: Yes Date on this admission: 07/30/17 - Critical Care Critical Care patient: No
[2017-07-29] MEDS: MUPIROCIN 2% TOPICAL OINTMENT FOR DECOLONIZATION NS SCH (23:15)
[2017-07-29 23:24] LABS: ANION GAP 17 (8-16); CALCIUM 7.6 mg/dL (8.5-10.1); CO2 22 mmol/L (21-32); GLUCOSE,RANDOM 197 mg/dL (74-106); MAGNESIUM 1.8 mg/dL (1.8-2.4); PHOSPHOROUS 3.1 mg/dL (2.5-4.9)
[2017-07-29 23:39] LABS: CREATININE 8.7 mg/dL (0.7-1.3)
[2017-07-29] MEDS: CHLORHEXIDINE GLUCONATE 4% CLEANSER FOR DECOLONIZATION TP SCH (23:51)
[2017-07-30 00:53] LABS: MCHC 34.6 g/dl (32.0-35.9); MEAN CELL VOLUME 98.5 fl (80-96); MEAN PLT VOLUME 10.3 fl (7.5-11.1); RDW 21.7 % (11.9-15.9); WHITE BLOOD COUNT 8.5 K/mm3 (4.0-10.0)
[2017-07-30 01:06] LABS: PLATELET COUNT 167 K/MM3 (134-434)
[2017-07-30 01:18] LABS: ANION GAP 14 (8-16); CALCIUM 7.6 mg/dL (8.5-10.1); CO2 27 mmol/L (21-32); CREATININE 5.5 mg/dL (0.7-1.3); GLUCOSE,RANDOM 180 mg/dL (74-106)
--- NOTE | 2017-07-30 01:19 | HP ---
Admitting History and Physical - Admission Chief Complaint: dizziness History of Present Illness: Pt is a 52M with PMH HTN, DM, CKD (on HD missed appointment today and thursday), CHF, anemia (pt states his Hb was 9.7 at last HD) who presented to ED with vague complaints of having low energy, dizziness, and malaise. Patient states "overall i just dont feel well". Patient was last dialyzed this past thursday and has missed his last 2 sessions. Patient stated he has not been able to make it and has rescheduled multiple times. He states he wasnt able to make the appointments due to not feeling well and feeling to weak to get out of bed. On questioning, pt admits to having missed his last 2 dialysis appointments due to feeling weak. Pt has a history of poor compliance with HD per dock pumper Dr. Quezada. He endorses nausea, NB/NB vomiting, and diarrhea. He states his diarrhea is sometimes dark in color otherwise he is unsure if he noticed blood in his stool. He endorses subjective fever, chills, and cough. Pt denies sick contacts and recent travel. Denies chest pain shortness of breath hematuria or dysuria. Patient still makes urine. In the ED he was noted to be hyperkalemic and severely anemic. History Source: Patient Limitations to Obtaining History: Clinical Condition - Past Medical History Cardiovascular: Yes: HTN Renal/: Yes: Renal Failure, Renal Inusuff Endocrine: Yes: Diabetes Mellitus - Smoking History Smoking history: Never smoked Have you smoked in the past 12 months: No Aproximately how many cigarettes per day: 0 - Alcohol/Substance Use Hx Alcohol Use: Yes (2 glasses wine/day) History of Substance Use: reports: None - Social History ADL: Independent Home Medications - Allergies Allergies/Adverse Reactions: Allergies Allergy/AdvReac Type Severity Reaction Status Date / Time Penicillins Allergy Intermediate Verified 05/07/17 06:15 - Home Medications Home Medications: Ambulatory Orders Carvedilol [Coreg] 25 mg PO BID #60 tablet 10/01/16 Calcium Acetate 0 mg PO TID 05/05/17 Valsartan [Diovan] 160 mg PO DAILY 05/05/17 Family Disease History - Family Disease History Family Disease History: Diabetes: Brother (CVA), Heart Disease: Father Review of Systems Findings/Remarks: Present: Fevers chills diarrhea generalized malaise cough Physical Examination Vital Signs: Vital Signs Temperature 98.4 F 07/29/17 21:55 Pulse Rate 90 07/30/17 00:05 Respiratory Rate 18 07/30/17 00:05 Blood Pressure 113/74 07/30/17 00:05 O2 Sat by Pulse Oximetry (%) 100 07/29/17 20:52 Constitutional: Yes: No Distress, Obese, Pallor Eyes: Yes: Other (pale conjunctiva) HENT: Yes: Atraumatic, Normocephalic Neck: Yes: Trachea Midline Cardiovascular: Yes: Regular Rate and Rhythm Respiratory: Yes: CTA Bilaterally Gastrointestinal: Yes: Normal Bowel Sounds, Soft, Abdomen, Obese Neurological: Yes: Alert, Oriented, Cran Nerves II-XII Intact ...Motor Strength: WNL Labs: CBC, BMP 07/30/17 00:01 Imaging - Results Chest X-ray: Image Reviewed Assessment/Plan Pt is a 52M with multiple medical problems who presents with dizziness and weakness found to have severe hyperkalemia and symptomatic anemia. Problem list: Severe anemia Hyperkalemia Lactic acidosis troponinemia Possible URI-viral Liver Mass ESRD on HD CHF HTN DM Plan: Admit to ICU Renal consult STAT dialysis treated for Hyperkalemia in ED f/u occult blood trend CBC transfuse 2 units PRBCs trend lactate trend troponins flu swab-states he recieved vaccine in dialysis 2-3 weeks ago GI consult for liver mass restart BP Meds coreg and valsartan DVT PPx Full H&P to follow case discussed with attending and admitting internet designer Visit type - Emergency Visit Emergency Visit: Yes ED Registration Date: 07/29/17 Care time: The patient presented to the Emergency Department on the above date and was hospitalized for further evaluation of their emergent condition. - New Patient This patient is new to me today: Yes Date on this admission: 07/29/17 - Critical Care Critical Care patient: Yes Total Critical Care Time (in minutes): 60 Critical Care Statement: The care of this patient involved high complexity decision making to prevent further life threatening deterioration of the patient 's condition and/or to evaluate & treat vital organ system(s) failure or risk of failure.
[2017-07-30] MEDS ORDERED: PANTOPRAZOLE SODIUM 40 MG VIAL IVPB ONE (05:31)
[2017-07-30] MEDS ORDERED: PT OWN MED DRAWER 7, Y5N ONE (05:43)
[2017-07-30] MEDS: PANTOPRAZOLE SODIUM 80 MG in SODIUM CHLORIDE 100 ML IVPB SCH ×2 (05:44→20:05)
[2017-07-30] MEDS: HEPARIN NA (PORCINE) 5,000 UNITS/ML 1ML VIAL SQ SCH ×3 (05:44→21:39)
[2017-07-30 06:23] LABS: MCH 34.6 pg (25.7-33.7); MCHC 35.2 g/dl (32.0-35.9); MEAN CELL VOLUME 98.1 fl (80-96); PLATELET COUNT 138 K/MM3 (134-434); RDW 22.3 % (11.9-15.9); WHITE BLOOD COUNT 7.7 K/mm3 (4.0-10.0)
[2017-07-30 07:10] LABS: ALBUMIN 2.4 g/dl (3.4-5.0); ALK PHOS 187 U/L (45-117); ANION GAP 15 (8-16); BILIRUBIN,TOTAL 0.8 mg/dL (0.2-1.0); CALCIUM 7.1 mg/dL (8.5-10.1); CO2 26 mmol/L (21-32); GLUCOSE,RANDOM 127 mg/dL (74-106); MAGNESIUM 1.9 mg/dL (1.8-2.4); PHOSPHOROUS 4.3 mg/dL (2.5-4.9); SGOT/AST 53 U/L (15-37); SGPT/ALT 31 U/L (12-78)
[2017-07-30 07:23] LABS: CREATININE 8.7 mg/dL (0.7-1.3)
--- NOTE | 2017-07-30 07:56 | PN ---
Physical Exam: SUBJECTIVE: Patient seen and examined by me this AM 24 hour events: - Received one unit of pRBCs on admission. HD in PM yesterday. - No major complaints. Pt endorses significant improvement in N/V w/ good appetite in AM. States symptoms are much improved. Endorses dark stools, but denies surya hematochezia. Denies PALMER/dizziness, CP, palpitations, SOB, cough, abdominal pain, dysuria, diarrhea/constipation, LE edema, rashes - Initially refusing colonoscopy. FOBT ordered. Hgb downtrending from 8.4 -> 6.8 this AM. Ordered for another unit of pRBCs in AM. Will undergo another round of HD today. PM - Pt now OK for colonoscopy. Will receive colonoscopy tomorrow AM. Plan to begin bowel prep after PM HD. - Abdominal MRI for suspicious mass lesion delayed due to electrolyte abnormalities. Will continue as outpt OBJECTIVE: Vital Signs Intake & Output 07/27/17 07/28/17 07/29/17 07/30/17 23:59 23:59 23:59 23:59 Intake Total 700 250 Balance 700 250 Weight 96.162 kg 96.162 kg Period Temp Pulse Resp BP Sys/Hayden Pulse Ox Last 24 Hr 97.5 F-98.9 F 87-103 17-20 96-146/67-85 100-100 Head: NCAT. Mild alopecia noted. MM moist. No oral lesions. No scleral icterus. Cardiac: RRR. S1, S2. No murmurs, clicks, gallops or rubs Pulmonary: CTABL, no wheezes, crackles or rhonchi. No accessory muscle use Abdomen: Soft, NT, ND. Normal bowel sounds. Negative murphys sign. No pain to superficial or deep palpation. Extremities: Warm and well perfused. 2+ pulses in all four extremities. Trace 1 + peripheral edema in all four extremities. Normal capillary refill time. Laboratory Results - last 24 hr CBC, BMP 07/30/17 05:10 07/30/17 05:10 07/29/17 07/30/17 07/30/17 22:30 00:01 00:01 WBC 8.5 RBC 2.47 L D Hgb 8.4 L D Hct 24.3 L D MCV 98.5 H MCH 34.0 H MCHC 34.6 RDW 21.7 H D Plt Count 167 MPV 10.3 Sodium 140 140 Potassium 5.5 H D 4.0 D Chloride 101 99 Carbon Dioxide 22 D 27 D Anion Gap 17 H 14 BUN 122 H* 73 H D Creatinine 8.7 H* D 5.5 H D Creat Clearance w eGFR Random Glucose 197 H 180 H Lactic Acid Calcium 7.6 L 7.6 L Phosphorus 3.1 D Magnesium 1.8 Total Bilirubin AST ALT Alkaline Phosphatase Troponin I Total Protein Albumin 07/30/17 07/30/17 07/30/17 05:10 05:10 05:10 WBC 7.7 RBC 1.98 L Hgb 6.8 L* D Hct 19.4 L D MCV 98.1 H MCH 34.6 H MCHC 35.2 RDW 22.3 H Plt Count 138 MPV 10.0 Sodium 142 Potassium 5.0 D Chloride 101 Carbon Dioxide 26 Anion Gap 15 BUN 108 H* D Creatinine 8.7 H* D Creat Clearance w eGFR 6.52 Random Glucose 127 H D Lactic Acid 1.4 Calcium 7.1 L Phosphorus 4.3 D Magnesium 1.9 Total Bilirubin 0.8 D AST 53 H D ALT 31 Alkaline Phosphatase 187 H Troponin I Total Protein 5.0 L Albumin 2.4 L 07/30/17 05:10 WBC RBC Hgb Hct MCV MCH MCHC RDW Plt Count MPV Sodium Potassium Chloride Carbon Dioxide Anion Gap BUN Creatinine Creat Clearance w eGFR Random Glucose Lactic Acid Calcium Phosphorus Magnesium Total Bilirubin AST ALT Alkaline Phosphatase Troponin I 0.06 H Total Protein Albumin Active Medications Generic Name Dose Route Start Last Admin Trade Name Freq PRN Reason Stop Dose Admin Chlorhexidine Gluconate 1 applic 07/29/17 22:00 07/29/17 23:51 Hibiclens For Decolonization - TP Not Given HS KRISTEN Heparin Sodium (Porcine) 5,000 unit 07/30/17 06:00 07/30/17 05:44 Heparin - SQ 5,000 unit TID KRISTEN Administration Mupirocin 1 applic 07/29/17 22:00 07/29/17 23:15 Bactroban Ointment (For Decolonization) - NS 08/03/17 21:59 1 applic BID KRISTEN Administration Pneumococcal 13-Valent Conj Vacc 0.5 ml 07/30/17 12:00 Prevnar 13 Syringe - IM 07/30/17 12:01 .ONCE ONE Microbiology 07/29/17 23:10 Nasopharyngeal Swab Influenza Types A,B Antigen (BREN) - Final 07/29/17 23:10 Nasopharyngeal Swab - Final ASSESSMENT/PLAN: 52 yo man w/ pmh of DMII, HTN and ESRD on HD via R hemo-cath who presented to ED w/ cough, fatigue, fevers in setting of missed HD appointment on Thursday, last dialyzed on Thursday, admitted to ICU for emergent dialysis w/ hyperkalemia (7) and anemia (4.5). Pt is hemodynamically stable, symptomatically improved, w/ mild correction in electrolyte disturbances after HD last night. Anemia improved from 4.5 -> 8.4, now 6.8 this AM -> will received one unit this AM. Will received another round of dialysis this PM w/ colonoscopy tomorrow AM to r/o LGIB/colon cancer given downtrending HgB, dark stools and recent liver mass on imaging. ESRD Severe electrolyte disturbances Critical Anemia U/LGIB? Suspicious abdominal mass Plan: Neuro: - Tylenol for pain control/fevers Cardiac: - Daily weights - Hold home HTN meds - EKG - Telemetry monitoring Pulmonary: - 2L O2 NC PRN. Titrate to >94% ID: - Trend fever curve, WBC count Renal: - HD this PM. F/u BMP - Monitor for hyperK. Correct as needed - Renal following. Recs appreciated. Heme: - Serial CBCs Q8H - Transfuse at <7. Trend H/H. - f/u FOBT - Anemia panel - Consider hemolysis panel GI: - Bowel prep tonight - F/u colonoscopy results in AM - Abdominal MRI for suspicious liver mass when Cr corrected - Renal diet - PPI for PPx PPX: - SCDs for DVT ppx - PPI for GI ppx Fluids: PO fluids Electrolytes: Daily BMPs/after HD, monitor for hyperK Nutrition: Renal diet Dispo: Can go to floors given clinical status. HD on floors. Hernandez Puente, PGY1 Plan discussed w/ attending, Dr. Keyes Visit type - Emergency Visit Emergency Visit: No - New Patient This patient is new to me today: Yes Date on this admission: 07/31/17 - Critical Care Critical Care patient: Yes Total Critical Care Time (in minutes): 35 Critical Care Statement: The care of this patient involved high complexity decision making to prevent further life threatening deterioration of the patient 's condition and/or to evaluate & treat vital organ system(s) failure or risk of failure.
--- NOTE | 2017-07-30 09:10 | CON.GI ---
Consult Consult Specialty:: GI Referred by:: Service Reason for Consultation:: Symptomatic anemia - History of Present Illness History of Present Illness: Chart reviewed. ED records and H&P reviewed. A 52 y o m with multiple active medical problems c/o fatigue and not feeling well. Missed 2 consecutive HD sessions. Noted to have Hgb 4.5g, reports 1-2 weeks history of black tarry diarrhea on and off. Per records, Pt's Hgb was 9 at his last dialysis. No nausea, vomiting, abdominal pain, dyspepsia, dysphagia , odynophagia. No fever, chills, icterus. Denies chronic NSAID use. No significant personal, or family history of chronic GI conditions. The patient received 2 u of PRBC and HD yesterday. He is schedule for HD today. A US abdomen noted a liver lesion, described as possible mass - History Source History Provided By: Patient, Medical Record Limitations to Obtaining History: No Limitations - Past Medical History Cardio/Vascular: Yes: HTN Renal/: Yes: Renal Failure, Renal Inusuff Endocrine: Yes: Diabetes Mellitus - Alcohol/Substance Use Hx Alcohol Use: Yes (2 glasses wine/day) History of Substance Use: reports: None - Smoking History Smoking history: Never smoked Have you smoked in the past 12 months: No Aproximately how many cigarettes per day: 0 - Social History ADL: Independent Home Medications - Allergies Allergies/Adverse Reactions: Allergies Allergy/AdvReac Type Severity Reaction Status Date / Time Penicillins Allergy Intermediate Verified 05/07/17 06:15 - Home Medications Home Medications: Ambulatory Orders Carvedilol [Coreg] 25 mg PO BID #60 tablet 10/01/16 Calcium Acetate 0 mg PO TID 05/05/17 Valsartan [Diovan] 160 mg PO DAILY 05/05/17 Family Disease History - Family Disease History Family Disease History: Diabetes: Brother (CVA), Heart Disease: Father Review of Systems Findings/Remarks: Please see H&P - Review of Systems Gastrointestinal: reports: Melena Physical Exam-GI Vital Signs: Vital Signs Temperature 98.9 F 07/30/17 02:00 Pulse Rate 83 07/30/17 08:00 Respiratory Rate 20 07/30/17 08:00 Blood Pressure 141/83 07/30/17 08:00 O2 Sat by Pulse Oximetry (%) 100 07/29/17 20:52 Constitutional: Yes: Well Nourished, No Distress, Calm Eyes: Yes: Conjunctiva Clear HENT: Yes: Atraumatic Neck: Yes: Supple Cardiovascular: Yes: Regular Rate and Rhythm Respiratory: Yes: Regular ...Auscultate: Yes: Normoactive Bowel Sounds ...Palpate: Yes: Soft. No: Guarding, Mass, Pulsatile Mass, Tenderness, Tenderness, Epigastium, Tenderness, Rebound Musculoskeletal: No: Joint Swelling Integumentary: No: Jaundice Neurological: Yes: Alert, Oriented Labs: CBC, BMP 07/30/17 05:10 07/30/17 05:10 INR, PTT INR 1.30 (0.82-1.09) H 07/29/17 18:00 Laboratory Tests 07/29/17 07/29/17 07/29/17 18:00 18:00 18:00 WBC 6.8 D RBC 1.19 L D Hgb 4.5 L* D Hct 13.6 L MCV 114.2 H MCH 37.5 H MCHC 32.9 RDW 17.0 H Plt Count 170 D MPV 9.6 Neutrophils % 84.9 H D Lymphocytes % 12.7 D Monocytes % 2.1 L D Eosinophils % 0.0 D Basophils % 0.3 Hypochromia 2+ Platelet Estimate Adequate Anisocytosis 3+ Macrocytosis 3+ PT with INR 14.70 H INR 1.30 H PTT (Actin FS) 26.3 L VBG pH POC VBG pCO2 POC VBG pO2 Mixed VBG HCO3 Sodium 140 Potassium 7.4 H* D Chloride 103 Carbon Dioxide 15 L D Anion Gap 22 H BUN 150 H* D Creatinine 11.8 H* D Creat Clearance w eGFR 4.58 Random Glucose 203 H D Lactic Acid Calcium 7.0 L Phosphorus Magnesium Total Bilirubin 0.5 D AST 34 D ALT 30 D Alkaline Phosphatase 218 H D Creatine Kinase 67 Troponin I 0.07 H D B-Natriuretic Peptide Total Protein 5.2 L D Albumin 2.3 L Blood Type Antibody Screen Crossmatch Spec Expiration Date 07/29/17 07/29/17 07/29/17 18:00 18:00 18:00 WBC RBC Hgb Hct MCV MCH MCHC RDW Plt Count MPV Neutrophils % Lymphocytes % Monocytes % Eosinophils % Basophils % Hypochromia Platelet Estimate Anisocytosis Macrocytosis PT with INR INR PTT (Actin FS) VBG pH POC VBG pCO2 POC VBG pO2 Mixed VBG HCO3 Sodium Potassium Chloride Carbon Dioxide Anion Gap BUN Creatinine Creat Clearance w eGFR Random Glucose Lactic Acid 4.5 H* Calcium Phosphorus Magnesium Total Bilirubin AST ALT Alkaline Phosphatase Creatine Kinase Troponin I B-Natriuretic Peptide > 206602.00 H Total Protein Albumin Blood Type O POSITIVE Antibody Screen Negative Crossmatch See Detail Spec Expiration Date 07/29/17 07/29/17 07/29/17 18:12 19:00 19:10 WBC RBC Hgb Hct MCV MCH MCHC RDW Plt Count MPV Neutrophils % Lymphocytes % Monocytes % Eosinophils % Basophils % Hypochromia Platelet Estimate Anisocytosis Macrocytosis PT with INR INR PTT (Actin FS) VBG pH 7.37 POC VBG pCO2 24.2 L POC VBG pO2 53.3 H Mixed VBG HCO3 13.9 L* Sodium Potassium Chloride Carbon Dioxide Anion Gap BUN Creatinine Creat Clearance w eGFR Random Glucose Lactic Acid 3.4 H* Calcium Phosphorus Magnesium Total Bilirubin AST ALT Alkaline Phosphatase Creatine Kinase Troponin I B-Natriuretic Peptide Total Protein Albumin Blood Type O POSITIVE Antibody Screen Cancelled Crossmatch See Detail Spec Expiration Date Cancelled 07/29/17 07/30/17 07/30/17 22:30 00:01 00:01 WBC 8.5 RBC 2.47 L D Hgb 8.4 L D Hct 24.3 L D MCV 98.5 H MCH 34.0 H MCHC 34.6 RDW 21.7 H D Plt Count 167 MPV 10.3 Neutrophils % Lymphocytes % Monocytes % Eosinophils % Basophils % Hypochromia Platelet Estimate Anisocytosis Macrocytosis PT with INR INR PTT (Actin FS) VBG pH POC VBG pCO2 POC VBG pO2 Mixed VBG HCO3 Sodium 140 140 Potassium 5.5 H D 4.0 D Chloride 101 99 Carbon Dioxide 22 D 27 D Anion Gap 17 H 14 BUN 122 H* 73 H D Creatinine 8.7 H* D 5.5 H D Creat Clearance w eGFR Random Glucose 197 H 180 H Lactic Acid Calcium 7.6 L 7.6 L Phosphorus 3.1 D Magnesium 1.8 Total Bilirubin AST ALT Alkaline Phosphatase Creatine Kinase Troponin I B-Natriuretic Peptide Total Protein Albumin Blood Type Antibody Screen Crossmatch Spec Expiration Date 07/30/17 07/30/17 07/30/17 05:10 05:10 05:10 WBC 7.7 RBC 1.98 L Hgb 6.8 L* D Hct 19.4 L D MCV 98.1 H MCH 34.6 H MCHC 35.2 RDW 22.3 H Plt Count 138 MPV 10.0 Neutrophils % Lymphocytes % Monocytes % Eosinophils % Basophils % Hypochromia Platelet Estimate Anisocytosis Macrocytosis PT with INR INR PTT (Actin FS) VBG pH POC VBG pCO2 POC VBG pO2 Mixed VBG HCO3 Sodium 142 Potassium 5.0 D Chloride 101 Carbon Dioxide 26 Anion Gap 15 BUN 108 H* D Creatinine 8.7 H* D Creat Clearance w eGFR 6.52 Random Glucose 127 H D Lactic Acid 1.4 Calcium 7.1 L Phosphorus 4.3 D Magnesium 1.9 Total Bilirubin 0.8 D AST 53 H D ALT 31 Alkaline Phosphatase 187 H Creatine Kinase Troponin I B-Natriuretic Peptide Total Protein 5.0 L Albumin 2.4 L Blood Type Antibody Screen Crossmatch Spec Expiration Date 07/30/17 05:10 WBC RBC Hgb Hct MCV MCH MCHC RDW Plt Count MPV Neutrophils % Lymphocytes % Monocytes % Eosinophils % Basophils % Hypochromia Platelet Estimate Anisocytosis Macrocytosis PT with INR INR PTT (Actin FS) VBG pH POC VBG pCO2 POC VBG pO2 Mixed VBG HCO3 Sodium Potassium Chloride Carbon Dioxide Anion Gap BUN Creatinine Creat Clearance w eGFR Random Glucose Lactic Acid Calcium Phosphorus Magnesium Total Bilirubin AST ALT Alkaline Phosphatase Creatine Kinase Troponin I 0.06 H B-Natriuretic Peptide Total Protein Albumin Blood Type Antibody Screen Crossmatch Spec Expiration Date Imaging - Results Ultrasound: Report Reviewed (? liver mass) Problem List - Problems (1) Gastrointestinal bleeding Code(s): K92.2 - GASTROINTESTINAL HEMORRHAGE, UNSPECIFIED (2) Acute blood loss anemia Code(s): D62 - ACUTE POSTHEMORRHAGIC ANEMIA (3) Liver mass Assessment/Plan: liver ?mass Code(s): R16.0 - HEPATOMEGALY, NOT ELSEWHERE CLASSIFIED Assessment/Plan Agree with current management Monitor Hgb and for signs of bleeding EGD and Colonoscopy tomorrow (discussed with the patient) MRI Liver with/w/o contrast to asses the liver lesion - discuss with nephrology imaging/contrast options
[2017-07-30] MEDS: MUPIROCIN 2% TOPICAL OINTMENT FOR DECOLONIZATION NS SCH ×2 (10:00→21:39)
[2017-07-30] MEDS ORDERED: PNEUMOC 13-VAL CONJ-DIP CRM/PF 0.5 ML DISP.SYRIN IM ONE (12:00)
--- NOTE | 2017-07-30 13:00 | EKG ---
Test Reason : Blood Pressure : / mmHG Vent. Rate : 084 BPM Atrial Rate : 084 BPM P-R Int : 182 ms QRS Dur : 098 ms QT Int : 458 ms P-R-T Axes : 002 183 259 degrees QTc Int : 541 ms NORMAL SINUS RHYTHM RIGHT SUPERIOR AXIS DEVIATION RIGHT VENTRICULAR HYPERTROPHY PROLONGED QT ABNORMAL ECG WHEN COMPARED WITH ECG OF 07-MAY-2017 14:45, T WAVE INVERSION MORE EVIDENT IN LATERAL LEADS Confirmed by VANITA SHAH, MARC ([id number]) on 07/30/2017 1:00:22 PM Referred By: Confirmed By:MARC WALDRON MD
--- NOTE | 2017-07-30 14:27 | PN ---
Progress Note (short form) - Note Progress Note: EGD/Clonoscopy is scheduled for 07/31 @ 9 am. Discussed with the patient and covering nurse. Problem List - Problems (1) Gastrointestinal bleeding Code(s): K92.2 - GASTROINTESTINAL HEMORRHAGE, UNSPECIFIED (2) Acute blood loss anemia Code(s): D62 - ACUTE POSTHEMORRHAGIC ANEMIA (3) Liver mass Code(s): R16.0 - HEPATOMEGALY, NOT ELSEWHERE CLASSIFIED
--- NOTE | 2017-07-30 15:20 | PN ---
Progress Note, Physician History of Present Illness: Pt seen and examined at bedside. He is awake and alert. He feels better today. He is out of bed to chair. He refused endoscopy. - Current Medication List Current Medications: Active Medications Chlorhexidine Gluconate (Hibiclens For Decolonization -) 1 applic TP HS KRISTEN Last Admin: 07/29/17 23:51 Dose: Not Given Heparin Sodium (Porcine) (Heparin -) 5,000 unit SQ TID KRISTEN Last Admin: 07/30/17 05:44 Dose: 5,000 unit Mupirocin (Bactroban Ointment (For Decolonization) -) 1 applic NS BID KRISTEN Stop: 08/03/17 21:59 Last Admin: 07/29/17 23:15 Dose: 1 applic - Objective Vital Signs: Vital Signs Temperature 98.3 F 07/30/17 14:09 Pulse Rate 84 07/30/17 14:09 Respiratory Rate 20 07/30/17 14:09 Blood Pressure 144/73 07/30/17 14:09 O2 Sat by Pulse Oximetry (%) 100 07/30/17 11:27 Constitutional: Yes: Calm Eyes: Yes: Conjunctiva Clear HENT: Yes: Atraumatic Neck: Yes: Supple Cardiovascular: Yes: S1, S2 Respiratory: Yes: CTA Bilaterally Gastrointestinal: Yes: Soft Genitourinary: Yes: WNL Musculoskeletal: Yes: WNL Edema: Yes Edema: LLE: Trace, RLE: Trace Neurological: Yes: Oriented Psychiatric: Yes: Oriented Labs: CBC, BMP 07/30/17 05:10 07/30/17 05:10 INR, PTT INR 1.30 (0.82-1.09) H 07/29/17 18:00 Problem List - Problems (1) Acute hyperkalemia Code(s): E87.5 - HYPERKALEMIA (2) Anemia Code(s): D64.9 - ANEMIA, UNSPECIFIED (3) Dialysis patient Code(s): Z99.2 - DEPENDENCE ON RENAL DIALYSIS (4) Hyperkalemia Code(s): E87.5 - HYPERKALEMIA (5) ESRD (end stage renal disease) Code(s): N18.6 - END STAGE RENAL DISEASE Assessment/Plan Current Medications Generic Name Dose Route Start Last Admin Trade Name Freq PRN Reason Stop Dose Admin Chlorhexidine Gluconate 1 applic 07/29/17 22:00 07/29/17 23:51 Hibiclens For Decolonization - TP Not Given HS KRISTEN Heparin Sodium (Porcine) 5,000 unit 07/30/17 06:00 07/30/17 05:44 Heparin - SQ 5,000 unit TID KRISTEN Administration Mupirocin 1 applic 07/29/17 22:00 07/29/17 23:15 Bactroban Ointment (For Decolonization) - NS 08/03/17 21:59 1 applic BID KRISTEN Administration Impression 1. ESRD 2. DM 3. diabetic nephropathy 4. HTN 5. obesity 6. anemia 7. iron deficiency 8. CHF 9. anemia 10. hyperkalemia Plan - will dialyze again today - transfuse prbc - monitor hg - discussed with ICU team - potassium is improved - discussed compliance with pt Dr Quezada
--- NOTE | 2017-07-30 15:49 | PN ---
Teaching Attending Note Name of Resident: Hernandez Puente ATTENDING PHYSICIAN STATEMENT I saw and evaluated the patient. I reviewed the resident's note and discussed the case with the resident. I agree with the resident's findings and plan as documented. SUBJECTIVE: Patient seen and examined in the ICU. Noted fall in H&H and is now receiving 1 unit of pRBCs. Denies overt bleeding, but does report dark stools. No CP or SOB. Intake & Output 07/27/17 07/28/17 07/29/17 07/30/17 23:59 23:59 23:59 23:59 Intake Total 700 250 Balance 700 250 Weight 212 lb 212 lb Last Vital Signs Temp Pulse Resp BP Pulse Ox 98.3 F 84 20 144/73 100 07/30/17 14:09 07/30/17 14:09 07/30/17 14:09 07/30/17 14:09 07/30/17 11:27 Active Medications Chlorhexidine Gluconate (Hibiclens For Decolonization -) 1 applic TP HS [facility] Last Admin: 07/29/17 23:51 Dose: Not Given Heparin Sodium (Porcine) (Heparin -) 5,000 unit SQ TID [facility] Last Admin: 07/30/17 05:44 Dose: 5,000 unit Mupirocin (Bactroban Ointment (For Decolonization) -) 1 applic NS BID [facility] Stop: 08/03/17 21:59 Last Admin: 07/29/17 23:15 Dose: 1 applic Constitutional: Yes: Pale, NAD Eyes: Yes: Conjunctiva Clear, EOM Intact HENT: Yes: Atraumatic Neck: Yes: WNL Cardiovascular: Yes: Regular Rate and Rhythm, S1, S2 Respiratory: Yes: Regular, CTA Bilaterally Gastrointestinal: Yes: Normal Bowel Sounds, Soft Extremities: Yes: Cool, Pallor Edema: Yes Edema: LUE: 1+, RUE: 1+, LLE: 1+, RLE: 1+ Peripheral Pulses WNL: Yes Integumentary: Yes: WNL Neurological: Yes: Alert, Oriented Labs: Laboratory Results - last 24 hr 07/29/17 07/29/17 07/29/17 18:00 18:00 18:00 WBC 6.8 D RBC 1.19 L D Hgb 4.5 L* D Hct 13.6 L MCV 114.2 H MCH 37.5 H MCHC 32.9 RDW 17.0 H Plt Count 170 D MPV 9.6 Neutrophils % 84.9 H D Lymphocytes % 12.7 D Monocytes % 2.1 L D Eosinophils % 0.0 D Basophils % 0.3 Hypochromia 2+ Platelet Estimate Adequate Anisocytosis 3+ Macrocytosis 3+ PT with INR 14.70 H INR 1.30 H PTT (Actin FS) 26.3 L VBG pH POC VBG pCO2 POC VBG pO2 Mixed VBG HCO3 Sodium 140 Potassium 7.4 H* D Chloride 103 Carbon Dioxide 15 L D Anion Gap 22 H BUN 150 H* D Creatinine 11.8 H* D Creat Clearance w eGFR 4.58 Random Glucose 203 H D Lactic Acid Calcium 7.0 L Phosphorus Magnesium Total Bilirubin 0.5 D AST 34 D ALT 30 D Alkaline Phosphatase 218 H D Creatine Kinase 67 Troponin I 0.07 H D B-Natriuretic Peptide Total Protein 5.2 L D Albumin 2.3 L Blood Type Antibody Screen Crossmatch Spec Expiration Date 07/29/17 07/29/17 07/29/17 18:00 18:00 18:00 WBC RBC Hgb Hct MCV MCH MCHC RDW Plt Count MPV Neutrophils % Lymphocytes % Monocytes % Eosinophils % Basophils % Hypochromia Platelet Estimate Anisocytosis Macrocytosis PT with INR INR PTT (Actin FS) VBG pH POC VBG pCO2 POC VBG pO2 Mixed VBG HCO3 Sodium Potassium Chloride Carbon Dioxide Anion Gap BUN Creatinine Creat Clearance w eGFR Random Glucose Lactic Acid 4.5 H* Calcium Phosphorus Magnesium Total Bilirubin AST ALT Alkaline Phosphatase Creatine Kinase Troponin I B-Natriuretic Peptide > 877223.00 H Total Protein Albumin Blood Type O POSITIVE Antibody Screen Negative Crossmatch See Detail Spec Expiration Date 07/29/17 07/29/17 07/29/17 18:12 19:00 19:10 WBC RBC Hgb Hct MCV MCH MCHC RDW Plt Count MPV Neutrophils % Lymphocytes % Monocytes % Eosinophils % Basophils % Hypochromia Platelet Estimate Anisocytosis Macrocytosis PT with INR INR PTT (Actin FS) VBG pH 7.37 POC VBG pCO2 24.2 L POC VBG pO2 53.3 H Mixed VBG HCO3 13.9 L* Sodium Potassium Chloride Carbon Dioxide Anion Gap BUN Creatinine Creat Clearance w eGFR Random Glucose Lactic Acid 3.4 H* Calcium Phosphorus Magnesium Total Bilirubin AST ALT Alkaline Phosphatase Creatine Kinase Troponin I B-Natriuretic Peptide Total Protein Albumin Blood Type O POSITIVE Antibody Screen Cancelled Crossmatch See Detail Spec Expiration Date Cancelled 07/29/17 07/30/17 07/30/17 22:30 00:01 00:01 WBC 8.5 RBC 2.47 L D Hgb 8.4 L D Hct 24.3 L D MCV 98.5 H MCH 34.0 H MCHC 34.6 RDW 21.7 H D Plt Count 167 MPV 10.3 Neutrophils % Lymphocytes % Monocytes % Eosinophils % Basophils % Hypochromia Platelet Estimate Anisocytosis Macrocytosis PT with INR INR PTT (Actin FS) VBG pH POC VBG pCO2 POC VBG pO2 Mixed VBG HCO3 Sodium 140 140 Potassium 5.5 H D 4.0 D Chloride 101 99 Carbon Dioxide 22 D 27 D Anion Gap 17 H 14 BUN 122 H* 73 H D Creatinine 8.7 H* D 5.5 H D Creat Clearance w eGFR Random Glucose 197 H 180 H Lactic Acid Calcium 7.6 L 7.6 L Phosphorus 3.1 D Magnesium 1.8 Total Bilirubin AST ALT Alkaline Phosphatase Creatine Kinase Troponin I B-Natriuretic Peptide Total Protein Albumin Blood Type Antibody Screen Crossmatch Spec Expiration Date 07/30/17 07/30/17 07/30/17 05:10 05:10 05:10 WBC 7.7 RBC 1.98 L Hgb 6.8 L* D Hct 19.4 L D MCV 98.1 H MCH 34.6 H MCHC 35.2 RDW 22.3 H Plt Count 138 MPV 10.0 Neutrophils % Lymphocytes % Monocytes % Eosinophils % Basophils % Hypochromia Platelet Estimate Anisocytosis Macrocytosis PT with INR INR PTT (Actin FS) VBG pH POC VBG pCO2 POC VBG pO2 Mixed VBG HCO3 Sodium 142 Potassium 5.0 D Chloride 101 Carbon Dioxide 26 Anion Gap 15 BUN 108 H* D Creatinine 8.7 H* D Creat Clearance w eGFR 6.52 Random Glucose 127 H D Lactic Acid 1.4 Calcium 7.1 L Phosphorus 4.3 D Magnesium 1.9 Total Bilirubin 0.8 D AST 53 H D ALT 31 Alkaline Phosphatase 187 H Creatine Kinase Troponin I B-Natriuretic Peptide Total Protein 5.0 L Albumin 2.4 L Blood Type Antibody Screen Crossmatch Spec Expiration Date 07/30/17 05:10 WBC RBC Hgb Hct MCV MCH MCHC RDW Plt Count MPV Neutrophils % Lymphocytes % Monocytes % Eosinophils % Basophils % Hypochromia Platelet Estimate Anisocytosis Macrocytosis PT with INR INR PTT (Actin FS) VBG pH POC VBG pCO2 POC VBG pO2 Mixed VBG HCO3 Sodium Potassium Chloride Carbon Dioxide Anion Gap BUN Creatinine Creat Clearance w eGFR Random Glucose Lactic Acid Calcium Phosphorus Magnesium Total Bilirubin AST ALT Alkaline Phosphatase Creatine Kinase Troponin I 0.06 H B-Natriuretic Peptide Total Protein Albumin Blood Type Antibody Screen Crossmatch Spec Expiration Date Problem List - Problems (1) Acute hyperkalemia Code(s): E87.5 - HYPERKALEMIA (2) Anemia Code(s): D64.9 - ANEMIA, UNSPECIFIED (3) End stage chronic kidney disease Code(s): N18.6 - END STAGE RENAL DISEASE Z99.2 - DEPENDENCE ON RENAL DIALYSIS Assessment/Plan Normal transfusion thresholds GI evaluation noted -> For possible endoscopic evaluation tomorrow O2 as needed HD per Renal Patient is currently on SQ Heparin -> May need to hold if further bleeding Floor Will need further evaluation of liver mass Dr Keyes Critical care time spent in reviewing chart, evaluating patient and formulating plan - 36 minutes.
--- NOTE | 2017-07-30 16:19 | PN ---
Teaching Attending Note Name of Resident: Cristian Rutherford ATTENDING PHYSICIAN STATEMENT I saw and evaluated the patient. I reviewed the resident's note and discussed the case with the resident. I agree with the resident's findings and plan as documented. SUBJECTIVE:overall improved. states he felt immediately better after HD. denies CP, SOB, fever, chills, N/V/C/D, hematuria, BRBPR or melena. denies NSAID use. never had colonoscopy in the past. pt does make urine been on HD since September 2016. being set up for PD OBJECTIVE: Last Vital Signs Temp Pulse Resp BP Pulse Ox 98.3 F 84 20 144/73 100 07/30/17 14:09 07/30/17 14:09 07/30/17 14:09 07/30/17 14:09 07/30/17 11:27 General NAD CV S1 S2 RRR no murmur/rub/gallop + HD catheter R chest Lungs CTA B/L no wheezing/rales/rhonchi Abdomen soft NT/ND Extremities no pedal edema ASSESSMENT AND PLAN: 52yo M with PMH ESRD on HD, anemia, DM, CHF and HTN presented with vauge symptoms after missing several HD sessions 1. Acute Uremic encephalopathy- s/p emergent HD yesterday via HD catheter with significant improvement. plan for repeat HD today. counseled on need for being compliant with HD until PD can be arranged. Neprhology on board 2. Symptomatic anemia- s/p 2 PRBC in the ER with appropriate response and now acute drop. plan for additional PRBC with HD. NPO, plan for EGD/colonoscopy tomorrow. GI on board 3. Hyperkalemia- s/p treatment in the ER. resolution with HD. cont to monitor 4. Liver mass- incidental 7.4cm liver lesion. recommend MRI to further evaluate. concern as pt is ESRD. will d/w neprhology. check AFP, CEA 5. Pseudohypocalcemia- Corrected Ca 8.36 6. AC Metabolic acidosis- due to lactic acidosis. now resolved 7. Elevated BNP- no signs of volume overload. likely falsely positive due to ESRD 8. Tropinemia- possible some demand ischemia vs false elevation in setting of ESRD 9. DM- NPO, ISS, BGM. not on home medications. check A1c (last one noted in the computer is 4.6 in 2016) 10. CHF- no signs of volume overload. cont coreg, statin, lasix 11. DVT ppx- SCD 12. MICU monitoring. stable for transfer to the floor he care of this patient involved high complexity decision making to prevent further life threatening deterioration of the patient's condition and/or to evaluate & treat vital organ system(s) failure or risk of failure. 45 minutes
[2017-07-30] MEDS ORDERED: PEG3350/SOD SULF,BICARB,CL/KCL 4,000 ML SOLN.RECON PO ONE (18:00)
[2017-07-30] MEDS: CALCIUM ACETATE 667 MG CAPSULE (FP) PO SCH (18:07)
[2017-07-30 19:11] LABS: MCH 33.3 pg (25.7-33.7); MCHC 35.3 g/dl (32.0-35.9); MEAN CELL VOLUME 94.3 fl (80-96); MEAN PLT VOLUME 9.9 fl (7.5-11.1); PLATELET COUNT 139 K/MM3 (134-434); RDW 24.5 % (11.9-15.9); WHITE BLOOD COUNT 9.2 K/mm3 (4.0-10.0)
--- NOTE | 2017-07-30 19:14 | PN ---
Physical Exam: SUBJECTIVE: Patient seen and examined. Patient feels better after dialysis yesterday. for dialysis again today. OBJECTIVE: Vital Signs Period Temp Pulse Resp BP Sys/Hayden Pulse Ox Last 24 Hr 97.5 F-98.9 F 79-103 17-20 96-151/67-85 100-100 GENERAL: The patient is awake, alert, and fully oriented, in no acute distress. HEAD: Normal with no signs of trauma. EYES: extraocular movements intact, sclera anicteric, conjunctiva clear. No ptosis. NECK: Trachea midline, full range of motion, supple. LUNGS: Breath sounds equal, clear to auscultation bilaterally, no wheezes, no crackles, no accessory muscle use. HEART: Regular rate and rhythm, S1, S2 without murmur, rub or gallop. ABDOMEN: Soft, nontender, nondistended, normoactive bowel sounds, no guarding, no rebound. EXTREMITIES: 2+ pulses, warm, well-perfused, no edema. NEUROLOGICAL: Cranial nerves II through X grossly intact. Normal speech, gait not observed. PSYCH: Normal mood, normal affect. SKIN: Warm, dry, normal turgor, no rashes or lesions noted Laboratory Results - last 24 hr 07/29/17 07/30/17 07/30/17 22:30 00:01 00:01 WBC 8.5 RBC 2.47 L D Hgb 8.4 L D Hct 24.3 L D MCV 98.5 H MCH 34.0 H MCHC 34.6 RDW 21.7 H D Plt Count 167 MPV 10.3 Sodium 140 140 Potassium 5.5 H D 4.0 D Chloride 101 99 Carbon Dioxide 22 D 27 D Anion Gap 17 H 14 BUN 122 H* 73 H D Creatinine 8.7 H* D 5.5 H D Creat Clearance w eGFR POC Glucometer Random Glucose 197 H 180 H Lactic Acid Calcium 7.6 L 7.6 L Phosphorus 3.1 D Magnesium 1.8 Total Bilirubin AST ALT Alkaline Phosphatase Troponin I Total Protein Albumin 07/30/17 07/30/17 07/30/17 05:10 05:10 05:10 WBC 7.7 RBC 1.98 L Hgb 6.8 L* D Hct 19.4 L D MCV 98.1 H MCH 34.6 H MCHC 35.2 RDW 22.3 H Plt Count 138 MPV 10.0 Sodium 142 Potassium 5.0 D Chloride 101 Carbon Dioxide 26 Anion Gap 15 BUN 108 H* D Creatinine 8.7 H* D Creat Clearance w eGFR 6.52 POC Glucometer Random Glucose 127 H D Lactic Acid 1.4 Calcium 7.1 L Phosphorus 4.3 D Magnesium 1.9 Total Bilirubin 0.8 D AST 53 H D ALT 31 Alkaline Phosphatase 187 H Troponin I Total Protein 5.0 L Albumin 2.4 L 07/30/17 07/30/17 05:10 12:10 WBC RBC Hgb Hct MCV MCH MCHC RDW Plt Count MPV Sodium Potassium Chloride Carbon Dioxide Anion Gap BUN Creatinine Creat Clearance w eGFR POC Glucometer [phone] Random Glucose Lactic Acid Calcium Phosphorus Magnesium Total Bilirubin AST ALT Alkaline Phosphatase Troponin I 0.06 H Total Protein Albumin Active Medications Generic Name Dose Route Start Last Admin Trade Name Freq PRN Reason Stop Dose Admin Atorvastatin Calcium 20 mg 07/30/17 22:00 Lipitor - PO HS [facility] Calcium Acetate 667 mg 07/30/17 17:30 07/30/17 18:07 Phoslo - PO Not Given TIDCM [facility] Carvedilol 25 mg 07/30/17 22:00 Coreg - PO BID [facility] Chlorhexidine Gluconate 1 applic 07/29/17 22:00 07/29/17 23:51 Hibiclens For Decolonization - TP Not Given HS [facility] Heparin Sodium (Porcine) 5,000 unit 07/30/17 22:00 Heparin - SQ BID [facility] Mupirocin 1 applic 07/29/17 22:00 07/30/17 10:00 Bactroban Ointment (For Decolonization) - NS 08/03/17 21:59 1 applic BID [facility] Administration ASSESSMENT/PLAN: Pt is a 52M w/ PMH HTN, DM, ESRD (on HD missed appointment today), CHF, anemia ( pt states his Hb was 9 at last HD) who presented to ED with dizziness, weakness , and URI symptoms. Pt is being admitted to ICU for Hyperkalemia, severe symptomatic anemia, and HD. #Severe Symptomatic Anemia -Hb 4.5 in ED -Pt s/p 2 units PRBC -f/u FOBT -patient received a 3rd unit of blood today -f/u post transfusion CBC #Liver mass -Abd U/S showing hepatic mass -Unclear etiology -GI consult Dr. Denis #ESRD -Missed last 2 HD sessions. Pt has history of poor compliance -Receiving HD -f/u nephrology reccs #Class II-III CHF -per Cardio note from prior visit -no signs of pulm congestion or pedal edema #DM -diet controlled -glc 108 #HTN -BP stable at this time -restarted home coreg -holding valsartan for now -monitor BP #acute metabolic encephalopathy likely 2/2 uremia- resolved -improved s/p emergent HD #Hyperkalemia- resolved -K of 7.4 in ED -potassium 5.0 after HD and interventions #Lactic acidosis- resolved -LA 4.5 -> 3.4 -> 1.4 #Troponemia likely 2/2 decreased renal clearance - resolving -troponin trending down .7 -> .6 #FEN -no fluids indicated at this time -hyperkalemia has normalized; monitor -DM/low Na diet #Dispo -admit to ICU for hyper K, severe symptomatic anemia, HD #Prophylaxsis -heparin SQ 5ku TID -SCDs -no gi prophy indicated #dispo -admitted to ICU for emergent serial HD Visit type - Emergency Visit Emergency Visit: Yes ED Registration Date: 07/29/17 Care time: The patient presented to the Emergency Department on the above date and was hospitalized for further evaluation of their emergent condition. - New Patient This patient is new to me today: Yes Date on this admission: 07/30/17 - Critical Care Critical Care patient: No
[2017-07-30] MEDS: CARVEDILOL 25 MG TABLET (FP) PO SCH (21:39)
[2017-07-30] MEDS: ATORVASTATIN CA 20 MG TABLET (FP) PO SCH (21:39)
[2017-07-30] MEDS: CHLORHEXIDINE GLUCONATE 4% CLEANSER FOR DECOLONIZATION TP SCH (21:39)
[2017-07-30] MEDS ORDERED: CALCIUM ACETATE PO SCH (22:00)
[2017-07-30] MEDS ORDERED: PANTOPRAZOLE SODIUM 40 MG VIAL IVPUSH ONE (22:56)
[2017-07-31 05:57] LABS: BASOPHIL 0.3 % (0-2.0); EOSINOPHIL 0.4 % (0-4.5); MCH 33.1 pg (25.7-33.7); MCHC 34.4 g/dl (32.0-35.9); MEAN CELL VOLUME 96.2 fl (80-96); MEAN PLT VOLUME 9.6 fl (7.5-11.1); NEUTROPHILS 75.4 % (42.8-82.8); PLATELET COUNT 130 K/MM3 (134-434); RDW 25.1 % (11.9-15.9); WHITE BLOOD COUNT 7.5 K/mm3 (4.0-10.0)
[2017-07-31 06:41] LABS: ALBUMIN 2.5 g/dl (3.4-5.0); ANION GAP 11 (8-16); CO2 29 mmol/L (21-32); CREATININE 6.1 mg/dL (0.7-1.3); GLUCOSE,RANDOM 128 mg/dL (74-106); MAGNESIUM 1.6 mg/dL (1.8-2.4); PHOSPHOROUS 3.8 mg/dL (2.5-4.9); SGOT/AST 107 U/L (15-37); SGPT/ALT 48 U/L (12-78)
[2017-07-31 06:43] LABS: ALK PHOS 189 U/L (45-117); BILIRUBIN,TOTAL 0.7 mg/dL (0.2-1.0); TOT PROT 5.6 g/dl (6.4-8.2)
[2017-07-31 07:19] LABS: CALCIUM 6.8 mg/dL (8.5-10.1)
--- NOTE | 2017-07-31 07:39 | PN ---
Physical Exam: SUBJECTIVE: Patient seen and examined by me this AM - Hgb downtrending 8.0 -> 7.4 - Significant improvement in electrolyte abnormalities, noted in labs below after HD last night. - Bowel prep overnight. Will go for colonoscopy this AM. - Complaining of chills overnight. Denies fatigue, PALMER/dizziness, CP, palpitations, N/V, cough, abdominal pain PM: - Colonoscopy not performed due to inadequate bowel prep. Upper endoscopy notable for actively bleeding duodenal ulcer. Epinephrine administered w/ application of 4 end-clips w/ achievement of complete hemostasis. - Ordered for 1unit pRBCs OBJECTIVE: Vital Signs Intake & Output 07/28/17 07/29/17 07/30/17 07/31/17 23:59 23:59 23:59 23:59 Intake Total 700 1850 Output Total 300 Balance 700 1550 Weight 96.162 kg 96.162 kg 95.708 kg Period Temp Pulse Resp BP Sys/Hayden Pulse Ox Last 24 Hr 98.2 F-98.8 F 73-96 18-20 114-151/69-97 100-100 GENERAL: The patient is awake, alert, and fully oriented, in no acute distress. Appears pale, complaining of chills. HEAD: NCAT NECK: Trachea midline, full range of motion, supple. LUNGS: Breath sounds equal, clear to auscultation bilaterally, no wheezes, no crackles, no accessory muscle use. HEART: Regular rate and rhythm, S1, S2 without murmur, rub or gallop. ABDOMEN: Soft, nontender, nondistended, normoactive bowel sounds, no guarding, no rebound, no hepatosplenomegaly, no masses. EXTREMITIES: 1+ pulses in LEs, cool to touch, no edema. NEUROLOGICAL: Cranial nerves II through XII grossly intact. Normal speech, gait not observed. Laboratory Results - last 24 hr CBC, BMP 07/31/17 05:00 07/31/17 05:00 07/29/17 07/30/17 07/30/17 22:30 12:10 18:30 WBC 9.2 RBC 2.39 L D Hgb 8.0 L D Hct 22.6 L D MCV 94.3 MCH 33.3 MCHC 35.3 RDW 24.5 H Plt Count 139 MPV 9.9 Neutrophils % Lymphocytes % Monocytes % Eosinophils % Basophils % Sodium Potassium Chloride Carbon Dioxide Anion Gap BUN Creatinine Creat Clearance w eGFR POC Glucometer [phone] Random Glucose Calcium Phosphorus Magnesium Total Bilirubin AST ALT Alkaline Phosphatase Total Protein Albumin Hepatitis C Antibody <0.1 07/31/17 07/31/17 07/31/17 05:00 05:00 06:21 WBC 7.5 RBC 2.23 L Hgb 7.4 L Hct 21.4 L MCV 96.2 H MCH 33.1 MCHC 34.4 RDW 25.1 H Plt Count 130 L MPV 9.6 Neutrophils % 75.4 Lymphocytes % 12.6 Monocytes % 11.3 H D Eosinophils % 0.4 D Basophils % 0.3 Sodium 141 Potassium 4.1 Chloride 101 Carbon Dioxide 29 Anion Gap 11 BUN 53 H D Creatinine 6.1 H D Creat Clearance w eGFR 9.81 POC Glucometer [phone] Random Glucose 128 H Calcium 6.8 L* Phosphorus 3.8 Magnesium 1.6 L Total Bilirubin 0.7 AST 107 H D ALT 48 D Alkaline Phosphatase 189 H Total Protein 5.6 L Albumin 2.5 L Hepatitis C Antibody Active Medications Generic Name Dose Route Start Last Admin Trade Name Freq PRN Reason Stop Dose Admin Atorvastatin Calcium 20 mg 07/30/17 22:00 07/30/17 21:39 Lipitor - PO 20 mg HS [facility] Administration Calcium Acetate 667 mg 07/30/17 17:30 07/30/17 18:07 Phoslo - PO Not Given TIDCM [facility] Carvedilol 25 mg 07/30/17 22:00 07/30/17 21:39 Coreg - PO 25 mg BID [facility] Administration Chlorhexidine Gluconate 1 applic 07/29/17 22:00 07/30/17 21:39 Hibiclens For Decolonization - TP Not Given [facility] Heparin Sodium (Porcine) 5,000 unit 07/30/17 22:00 07/30/17 21:39 Heparin - SQ 5,000 unit BID [facility] Administration Mupirocin 1 applic 07/29/17 22:00 07/30/17 21:39 Bactroban Ointment (For Decolonization) - NS 08/03/17 21:59 Not Given BID [facility] Microbiology 07/29/17 18:12 Blood - Peripheral Venous Blood Culture - Preliminary NO GROWTH OBTAINED AFTER 24 HOURS, INCUBATION TO CONTINUE FOR 4 DAYS. 07/29/17 18:00 Blood - Peripheral Venous Blood Culture - Preliminary NO GROWTH OBTAINED AFTER 24 HOURS, INCUBATION TO CONTINUE FOR 4 DAYS. 07/29/17 23:10 Nasopharyngeal Swab Influenza Types A,B Antigen (BREN) - Final 07/29/17 23:10 Nasopharyngeal Swab - Final Abdominal U/S (07/29) - No gross pathology or fluid collection noted. No gross acute pathology noted. 7.4 cm avascular, heteronegous focus in liver noted. CXR (07/29) - No acute pathology noted. EKG (07/29) - NSR. Rate of 84. RAD. Prolonged QTc 541. Lateral TWIs noted. ASSESSMENT/PLAN: 52 yo man w/ pmh of DMII, HTN and ESRD on HD via R hemo-cath who presented to ED w/ cough, fatigue, fevers in setting of missed HD appointment on Thursday, last dialyzed on Thursday, admitted to ICU for emergent dialysis w/ hyperkalemia (7) and anemia (4.5). Pt is hemodynamically stable w/ downtrending Hgb 8 -> 7.4 after receiving two units since admission. Pt endorses mild chills , denies all other symptoms as noted above. Appears pale on exam. Colonoscopy cancelled given inadequate bowel prep. Upper endoscopy notable for actively bleeding duodenal ulcer, clipped w/ complete hemostasis. Pt ordered for 1 unit blood post-op. Will likely require HD again today, given persistent eletrolyte abnormalities. ESRD Severe electrolyte disturbances Critical Anemia U/LGIB? Suspicious liver mass Plan: Neuro: - Tylenol for pain control/fevers - Postop sedation recovery - Monitor MS off sedation Cardiac: - Daily weights - Hold home HTN meds - Telemetry monitoring Pulmonary: - 2L O2 NC PRN. Titrate to >94% ID: - Trend fever curve, WBC count Renal: - HD this PM. F/u BMP - Monitor for hyperK. Correct as needed - Renal following. Recs appreciated. Heme: - Serial CBCs Q12H - Ordered for 1 unit pRBCs - Transfuse at <7. Trend H/H. - Hold all AC - Monitor for further evidence of GI bleeding (hematemesis, melena) GI: - Upper endoscopy notable for bleeding duodenal ulcer. Clipped w/ hemostasis - Will require repeat colonoscopy - Abdominal MRI for suspicious liver mass when Cr corrected - Renal diet - PPI for PPx PPX: - SCDs for DVT ppx - PPI for GI ppx Fluids: PO fluids Electrolytes: Daily BMPs/after HD, monitor for hyperK Nutrition: Renal diet Dispo: Can go to floors given clinical status. HD on floors. Hernandez Puente, PGY1 Plan discussed w/ attending, Dr. Keyes Visit type - Emergency Visit Emergency Visit: No - New Patient This patient is new to me today: No - Critical Care Critical Care patient: Yes Total Critical Care Time (in minutes): 35 Critical Care Statement: The care of this patient involved high complexity decision making to prevent further life threatening deterioration of the patient 's condition and/or to evaluate & treat vital organ system(s) failure or risk of failure.
[2017-07-31 08:48] LABS: ANISOCYTOSIS 3+; HYPOCHROMIA 2+; MACROCYTOSIS 1+; MICROCYTOSIS 1+
--- NOTE | 2017-07-31 08:51 | PN ---
Progress Note, Physician History of Present Illness: Chart reviewed. ED records and H&P reviewed. finished about 45% of perep. Reports diarrhea up until 4 am. No gross bleeding - Current Medication List Current Medications: Active Medications Atorvastatin Calcium (Lipitor -) 20 mg PO HS [facility] Last Admin: 07/30/17 21:39 Dose: 20 mg Calcium Acetate (Phoslo -) 667 mg PO TIDCM [facility] Last Admin: 07/30/17 18:07 Dose: Not Given Carvedilol (Coreg -) 25 mg PO BID [facility] Last Admin: 07/30/17 21:39 Dose: 25 mg Chlorhexidine Gluconate (Hibiclens For Decolonization -) 1 applic TP [facility] Heparin Sodium (Porcine) (Heparin -) 5,000 unit SQ BID [facility] Last Admin: 07/30/17 21:39 Dose: 5,000 unit Mupirocin (Bactroban Ointment (For Decolonization) -) 1 applic NS BID [facility] Stop: 08/03/17 21:59 - Objective Vital Signs: Vital Signs Temperature 98.2 F 07/31/17 06:00 Pulse Rate 94 H 07/31/17 08:00 Respiratory Rate 20 07/31/17 08:00 Blood Pressure 125/69 07/31/17 08:00 O2 Sat by Pulse Oximetry (%) 100 07/30/17 20:00 Constitutional: Yes: No Distress, Calm Eyes: Yes: Conjunctiva Clear HENT: Yes: Atraumatic Neck: Yes: Supple Cardiovascular: Yes: Regular Rate and Rhythm Respiratory: Yes: Regular Gastrointestinal: Yes: Normal Bowel Sounds, Soft. No: Tenderness Labs: CBC, BMP 07/31/17 05:00 07/31/17 05:00 INR, PTT INR 1.30 (0.82-1.09) H 07/29/17 18:00 Abnormal Lab Results 07/29/17 07/30/17 07/31/17 18:00 18:30 05:00 RBC 2.39 L D 2.23 L Hgb 8.0 L D 7.4 L Hct 22.6 L D 21.4 L MCV 96.2 H RDW 24.5 H 25.1 H Plt Count 130 L Monocytes % 11.3 H D BUN Creatinine Random Glucose Calcium Magnesium AST Alkaline Phosphatase Total Protein Albumin Crossmatch See Detail 10/20/17 05:00 RBC Hgb Hct MCV RDW Plt Count Monocytes % BUN 53 H D Creatinine 6.1 H D Random Glucose 128 H Calcium 6.8 L* Magnesium 1.6 L AST 107 H D Alkaline Phosphatase 189 H Total Protein 5.6 L Albumin 2.5 L Crossmatch Problem List - Problems (1) Gastrointestinal bleeding Code(s): K92.2 - GASTROINTESTINAL HEMORRHAGE, UNSPECIFIED (2) Acute blood loss anemia Code(s): D62 - ACUTE POSTHEMORRHAGIC ANEMIA (3) Liver mass Code(s): R16.0 - HEPATOMEGALY, NOT ELSEWHERE CLASSIFIED Assessment/Plan Hgb trending down, no gross signs of bleeding EGD and Colonoscopy today MRI Liver with/w/o contrast to asses the liver lesion - discuss with nephrology imaging/contrast options
[2017-07-31] MEDS ORDERED: ETOMIDATE 20 MG/10 ML AMPUL IVPUSH ONE (08:56)
[2017-07-31] MEDS ORDERED: LIDOCAINE HCL 2% (20ML MULTI-DOSE VIAL) NR ONE (08:56)
[2017-07-31] MEDS ORDERED: PROPOFOL 20 ML ONE ×3 (08:56→09:45)
--- NOTE | 2017-07-31 10:50 | PROC ---
Endoscopy Procedure Endoscopy procedure completed. Please see scanned procedure report.
--- NOTE | 2017-07-31 10:58 | PN ---
Progress Note (short form) - Note Progress Note: a shallow, actively bleeding, with visible vessel ulcer was found in the 2nd portion of the duodenum. The ulcer was injected with a total of 13.5 cc of 1:10, 000 epinephrine and clipped with 4 resolution clips. Complete hemostasis was achieved. Incomplete colonoscopy. Poor rep. Repeat after more aggressive prep as OP. Transfuse 1 u PRBC Stop all NSAIDs PPI 40 po bid ordered clear diet today. Problem List - Problems (1) Gastrointestinal bleeding Code(s): K92.2 - GASTROINTESTINAL HEMORRHAGE, UNSPECIFIED (2) Acute blood loss anemia Code(s): D62 - ACUTE POSTHEMORRHAGIC ANEMIA (3) Liver mass Code(s): R16.0 - HEPATOMEGALY, NOT ELSEWHERE CLASSIFIED
--- NOTE | 2017-07-31 11:21 | PN ---
Teaching Attending Note Name of Resident: Milan Hernandez ATTENDING PHYSICIAN STATEMENT I saw and evaluated the patient. I reviewed the resident's note and discussed the case with the resident. I agree with the resident's findings and plan as documented. SUBJECTIVE: Patient seen and examined in the ICU. S/P endoscopy: shallow, actively bleeding visible vessel ulcer in the 2nd portion of the duodenum. 4 clips were placed. No CP or SOB. Intake & Output 07/28/17 07/29/17 07/30/17 07/31/17 23:59 23:59 23:59 23:59 Intake Total 700 1850 200 Output Total 300 Balance 700 1550 200 Weight 212 lb 212 lb 211 lb Last Vital Signs Temp Pulse Resp BP Pulse Ox 98.2 F 94 H 20 125/69 100 07/31/17 06:00 07/31/17 08:00 07/31/17 08:00 07/31/17 08:00 07/30/17 20:00 Active Medications Atorvastatin Calcium (Lipitor -) 20 mg PO HS [facility] Last Admin: 07/30/17 21:39 Dose: 20 mg Calcium Acetate (Phoslo -) 667 mg PO TIDCM [facility] Last Admin: 07/30/17 18:07 Dose: Not Given Carvedilol (Coreg -) 25 mg PO BID [facility] Last Admin: 07/30/17 21:39 Dose: 25 mg Chlorhexidine Gluconate (Hibiclens For Decolonization -) 1 applic TP HS [facility] Heparin Sodium (Porcine) (Heparin -) 5,000 unit SQ BID [facility] Last Admin: 07/30/17 21:39 Dose: 5,000 unit Mupirocin (Bactroban Ointment (For Decolonization) -) 1 applic NS BID [facility] Stop: 08/03/17 21:59 Pantoprazole Sodium (Protonix -) 40 mg PO BID [facility] Constitutional: Yes: Pale, NAD Eyes: Yes: Conjunctiva Clear, EOM Intact HENT: Yes: Atraumatic Neck: Yes: WNL Cardiovascular: Yes: Regular Rate and Rhythm, S1, S2 Respiratory: Yes: Regular, CTA Bilaterally Gastrointestinal: Yes: Normal Bowel Sounds, Soft Extremities: Yes: Cool, Pallor Edema: Yes Edema: LUE: 1+, RUE: 1+, LLE: 1+, RLE: 1+ Peripheral Pulses WNL: Yes Integumentary: Yes: WNL Neurological: Yes: Alert, Oriented Labs: Laboratory Results - last 24 hr 07/29/17 07/29/17 07/29/17 18:00 19:00 22:30 WBC RBC Hgb Hct MCV MCH MCHC RDW Plt Count MPV Neutrophils % Lymphocytes % Monocytes % Eosinophils % Basophils % Hypochromia Basophilic Stippling Anisocytosis Microcytosis Macrocytosis Morphology Comment Sodium Potassium Chloride Carbon Dioxide Anion Gap BUN Creatinine Creat Clearance w eGFR POC Glucometer Random Glucose Calcium Phosphorus Magnesium Total Bilirubin AST ALT Alkaline Phosphatase Total Protein Albumin Hepatitis C Antibody <0.1 Blood Type O POSITIVE O POSITIVE Antibody Screen Negative Crossmatch See Detail See Detail 07/30/17 07/30/17 07/31/17 12:10 18:30 05:00 WBC 9.2 7.5 RBC 2.39 L D 2.23 L Hgb 8.0 L D 7.4 L Hct 22.6 L D 21.4 L MCV 94.3 96.2 H MCH 33.3 33.1 MCHC 35.3 34.4 RDW 24.5 H 25.1 H Plt Count 139 130 L MPV 9.9 9.6 Neutrophils % 75.4 Lymphocytes % 12.6 Monocytes % 11.3 H D Eosinophils % 0.4 D Basophils % 0.3 Hypochromia 2+ Basophilic Stippling 1+ Anisocytosis 3+ Microcytosis 1+ Macrocytosis 1+ Morphology Comment Skin Lap Bonder Sodium Potassium Chloride Carbon Dioxide Anion Gap BUN Creatinine Creat Clearance w eGFR POC Glucometer [phone] Random Glucose Calcium Phosphorus Magnesium Total Bilirubin AST ALT Alkaline Phosphatase Total Protein Albumin Hepatitis C Antibody Blood Type Antibody Screen Crossmatch 07/31/17 07/31/17 05:00 06:21 WBC RBC Hgb Hct MCV MCH MCHC RDW Plt Count MPV Neutrophils % Lymphocytes % Monocytes % Eosinophils % Basophils % Hypochromia Basophilic Stippling Anisocytosis Microcytosis Macrocytosis Morphology Comment Sodium 141 Potassium 4.1 Chloride 101 Carbon Dioxide 29 Anion Gap 11 BUN 53 H D Creatinine 6.1 H D Creat Clearance w eGFR 9.81 POC Glucometer [phone] Random Glucose 128 H Calcium 6.8 L* Phosphorus 3.8 Magnesium 1.6 L Total Bilirubin 0.7 AST 107 H D ALT 48 D Alkaline Phosphatase 189 H Total Protein 5.6 L Albumin 2.5 L Hepatitis C Antibody Blood Type Antibody Screen Crossmatch Problem List - Problems (1) Acute hyperkalemia Code(s): E87.5 - HYPERKALEMIA (2) Anemia Code(s): D64.9 - ANEMIA, UNSPECIFIED (3) End stage chronic kidney disease Code(s): N18.6 - END STAGE RENAL DISEASE Z99.2 - DEPENDENCE ON RENAL DIALYSIS Assessment/Plan Normal transfusion thresholds O2 as needed HD per Renal Hold AC No NSAIDS PPI BID Will need further evaluation of liver mass PO when OK with GI Dr Keyes Critical care time spent in reviewing chart, evaluating patient and formulating plan - 36 minutes.
[2017-07-31 11:56] LABS: MCH 33.2 pg (25.7-33.7); MEAN CELL VOLUME 97.7 fl (80-96); PLATELET COUNT 109 K/MM3 (134-434); RDW 25.3 % (11.9-15.9); WHITE BLOOD COUNT 7.9 K/mm3 (4.0-10.0)
[2017-07-31] MEDS ORDERED: HEMOQUE TEST 1 EACH EACH ONE (12:43)
[2017-07-31] MEDS: CALCIUM ACETATE 667 MG CAPSULE (FP) PO SCH (12:50)
[2017-07-31] MEDS: CARVEDILOL 25 MG TABLET (FP) PO SCH ×2 (12:51→22:33)
[2017-07-31] MEDS: HEPARIN NA (PORCINE) 5,000 UNITS/ML 1ML VIAL SQ SCH ×2 (12:51→22:40)
[2017-07-31] MEDS: MUPIROCIN 2% TOPICAL OINTMENT FOR DECOLONIZATION NS SCH (12:51)
--- NOTE | 2017-07-31 14:28 | PN ---
Teaching Attending Note Name of Resident: Cristian Rutherford ATTENDING PHYSICIAN STATEMENT I saw and evaluated the patient. I reviewed the resident's note and discussed the case with the resident. I agree with the resident's findings and plan as documented. SUBJECTIVE:asymptomatic. states he had black tarry stool earlier today. tolerating liquid diet. denies Cp, SOB, fever, chills, N/V/C/D OBJECTIVE: Last Vital Signs Temp Pulse Resp BP Pulse Ox 99.0 F 105 H 20 142/76 100 07/31/17 12:00 07/31/17 12:00 07/31/17 12:00 07/31/17 12:00 07/31/17 09:00 General NAD CV S1 S2 RRR no murmur/rub/gallop + HD catheter R chest Lungs CTA B/L no wheezing/rales/rhonchi Abdomen soft NT/ND Extremities no pedal edema ASSESSMENT AND PLAN: 52yo M with PMH ESRD on HD, anemia, DM, CHF and HTN presented with vauge symptoms after missing several HD sessions 1. Acute Uremic encephalopathy- s/p emergent HD yesterday via HD catheter with significant improvement. tolerated HD yesteday. will cont as per normal schedule (TTS). encourged compliance. Neprhology on board 2. Duodenal ulcer with visible vessel and adherent clot s/p epi and clipping- s/ p 3 PRBC this admission. another acute drop. currently receiving 1 unit PRBC will check post-cbc. PPI ggt switched to PPI BID and advanced to clear liquid diet as per GI recommendations. will monitor closely as there is high risk of re -bleeding 3. Hyperkalemia- s/p treatment in the ER. resolution with HD. cont to monitor 4. Liver mass- incidental 7.4cm liver lesion. will obtain CT with and with contrast tomorrow prior to HD. will d/w neprhology. AFP, CEA pending 5. Pseudohypocalcemia- Corrected Ca 8.36 6. AC Metabolic acidosis- due to lactic acidosis. now resolved 7. Elevated BNP- no signs of volume overload. likely falsely positive due to ESRD 8. Tropinemia- possible some demand ischemia vs false elevation in setting of ESRD 9. DM- NPO, ISS, BGM. not on home medications. A1c pending (last one noted in the computer is 4.6 in 2016) 10. CHF- no signs of volume overload. cont coreg, statin, lasix 11. DVT ppx- SCD 12. MICU monitoring. he care of this patient involved high complexity decision making to prevent further life threatening deterioration of the patient's condition and/or to evaluate & treat vital organ system(s) failure or risk of failure. 48 minutes
--- NOTE | 2017-07-31 14:40 | PN ---
Progress Note, Physician History of Present Illness: Pt seen and examined at bedside. He denies abdominal pain. He denies shortness of breath. He is getting blood. - Current Medication List Current Medications: Active Medications Atorvastatin Calcium (Lipitor -) 20 mg PO HS [facility] Last Admin: 07/30/17 21:39 Dose: 20 mg Calcium Acetate (Phoslo -) 667 mg PO TIDCM [facility] Last Admin: 07/31/17 12:50 Dose: Not Given Carvedilol (Coreg -) 25 mg PO BID [facility] Last Admin: 07/31/17 12:51 Dose: Not Given Chlorhexidine Gluconate (Hibiclens For Decolonization -) 1 applic TP HS [facility] Heparin Sodium (Porcine) (Heparin -) 5,000 unit SQ BID [facility] Last Admin: 07/31/17 12:51 Dose: Not Given Mupirocin (Bactroban Ointment (For Decolonization) -) 1 applic NS BID [facility] Stop: 08/03/17 21:59 Last Admin: 07/31/17 12:51 Dose: Not Given Pantoprazole Sodium (Protonix -) 40 mg PO BID [facility] - Objective Vital Signs: Vital Signs Temperature 99.0 F 07/31/17 12:00 Pulse Rate 105 H 07/31/17 12:00 Respiratory Rate 20 07/31/17 12:00 Blood Pressure 142/76 07/31/17 12:00 O2 Sat by Pulse Oximetry (%) 100 07/31/17 09:00 Constitutional: Yes: Calm Eyes: Yes: Conjunctiva Clear HENT: Yes: Atraumatic Neck: Yes: Supple Cardiovascular: Yes: S1, S2 Respiratory: Yes: CTA Bilaterally Gastrointestinal: Yes: Normal Bowel Sounds, Soft Genitourinary: Yes: WNL Musculoskeletal: Yes: WNL Edema: No Neurological: Yes: Oriented Psychiatric: Yes: Oriented Labs: CBC, BMP 07/31/17 11:34 07/31/17 05:00 INR, PTT INR 1.30 (0.82-1.09) H 07/29/17 18:00 - ....Imaging Ultrasound: Report Reviewed Problem List - Problems (1) Acute hyperkalemia Code(s): E87.5 - HYPERKALEMIA (2) Anemia Code(s): D64.9 - ANEMIA, UNSPECIFIED (3) Dialysis patient Code(s): Z99.2 - DEPENDENCE ON RENAL DIALYSIS (4) Hyperkalemia Code(s): E87.5 - HYPERKALEMIA (5) ESRD (end stage renal disease) Code(s): N18.6 - END STAGE RENAL DISEASE Assessment/Plan Current Medications Generic Name Dose Route Start Last Admin Trade Name Freq PRN Reason Stop Dose Admin Atorvastatin Calcium 20 mg 07/30/17 22:00 07/30/17 21:39 Lipitor - PO 20 mg HS [facility] Administration Calcium Acetate 667 mg 07/30/17 17:30 07/31/17 12:50 Phoslo - PO Not Given TIDCM [facility] Carvedilol 25 mg 07/30/17 22:00 07/31/17 12:51 Coreg - PO Not Given BID [facility] Chlorhexidine Gluconate 1 applic 07/31/17 22:00 Hibiclens For Decolonization - TP HS [facility] Heparin Sodium (Porcine) 5,000 unit 07/30/17 22:00 07/31/17 12:51 Heparin - SQ Not Given BID [facility] Mupirocin 1 applic 07/31/17 10:00 07/31/17 12:51 Bactroban Ointment (For Decolonization) - NS 08/03/17 21:59 Not Given BID [facility] Pantoprazole Sodium 40 mg 07/31/17 11:00 Protonix - PO BID [facility] Impression 1. ESRD 2. DM 3. diabetic nephropathy 4. HTN 5. obesity 6. anemia 7. iron deficiency 8. CHF 9. anemia 10. hyperkalemia 11. liver mass Plan - will arrange for HD in am - transfuse prbc - epogen on HD - liver mass workup - do not recommend MRI with contrast. Pt can get a ct with iv contrast followed by HD if needed or can get a NON CONTRAST MRI - GI follow up - monitor hg - discussed compliance with pt Dr Quezada
--- NOTE | 2017-07-31 18:32 | PN ---
Physical Exam: SUBJECTIVE: Patient seen and examined at bedside. no new complaints. Patient s/ p EGD and colonoscopy today. Hb dropped again. will transfuse again today. OBJECTIVE: Vital Signs Period Temp Pulse Resp BP Sys/Hayden Pulse Ox Last 24 Hr 98.2 F-99.0 F 73-105 18-20 114-151/69-97 100-100 GENERAL: The patient is awake, alert, and fully oriented, in no acute distress. HEAD: Normal with no signs of trauma. NECK: Trachea midline, full range of motion, supple. LUNGS: Breath sounds equal, clear to auscultation bilaterally, no wheezes, no crackles, no accessory muscle use. HEART: Regular rate and rhythm, S1, S2 without murmur, rub or gallop. ABDOMEN: Soft, nontender, nondistended, normoactive bowel sounds, no guarding, no rebound. EXTREMITIES: 2+ pulses, warm, well-perfused, no edema. Laboratory Results - last 24 hr 07/29/17 07/30/17 07/31/17 22:30 18:30 05:00 WBC 9.2 7.5 RBC 2.39 L D 2.23 L Hgb 8.0 L D 7.4 L Hct 22.6 L D 21.4 L MCV 94.3 96.2 H MCH 33.3 33.1 MCHC 35.3 34.4 RDW 24.5 H 25.1 H Plt Count 139 130 L MPV 9.9 9.6 Neutrophils % 75.4 Lymphocytes % 12.6 Monocytes % 11.3 H D Eosinophils % 0.4 D Basophils % 0.3 Hypochromia 2+ Basophilic Stippling 1+ Anisocytosis 3+ Microcytosis 1+ Macrocytosis 1+ Morphology Comment Instructor Product Inspection Sodium Potassium Chloride Carbon Dioxide Anion Gap BUN Creatinine Creat Clearance w eGFR POC Glucometer Random Glucose Calcium Phosphorus Magnesium Total Bilirubin AST ALT Alkaline Phosphatase Total Protein Albumin Hepatitis C Antibody <0.1 07/31/17 07/31/17 07/31/17 05:00 06:21 11:34 WBC 7.9 RBC 2.03 L Hgb 6.7 L* Hct 19.9 L MCV 97.7 H MCH 33.2 MCHC 34.0 RDW 25.3 H Plt Count 109 L MPV 9.0 Neutrophils % Lymphocytes % Monocytes % Eosinophils % Basophils % Hypochromia Basophilic Stippling Anisocytosis Microcytosis Macrocytosis Morphology Comment Sodium 141 Potassium 4.1 Chloride 101 Carbon Dioxide 29 Anion Gap 11 BUN 53 H D Creatinine 6.1 H D Creat Clearance w eGFR 9.81 POC Glucometer [phone] Random Glucose 128 H Calcium 6.8 L* Phosphorus 3.8 Magnesium 1.6 L Total Bilirubin 0.7 AST 107 H D ALT 48 D Alkaline Phosphatase 189 H Total Protein 5.6 L Albumin 2.5 L Hepatitis C Antibody 07/31/17 12:46 WBC RBC Hgb Hct MCV MCH MCHC RDW Plt Count MPV Neutrophils % Lymphocytes % Monocytes % Eosinophils % Basophils % Hypochromia Basophilic Stippling Anisocytosis Microcytosis Macrocytosis Morphology Comment Sodium Potassium Chloride Carbon Dioxide Anion Gap BUN Creatinine Creat Clearance w eGFR POC Glucometer [phone] Random Glucose Calcium Phosphorus Magnesium Total Bilirubin AST ALT Alkaline Phosphatase Total Protein Albumin Hepatitis C Antibody Active Medications Generic Name Dose Route Start Last Admin Trade Name Freq PRN Reason Stop Dose Admin Atorvastatin Calcium 20 mg 07/30/17 22:00 07/30/17 21:39 Lipitor - PO 20 mg HS [facility] Administration Calcium Acetate 667 mg 07/30/17 17:30 07/31/17 12:50 Phoslo - PO Not Given TIDCM [facility] Carvedilol 25 mg 07/30/17 22:00 07/31/17 12:51 Coreg - PO Not Given BID [facility] Chlorhexidine Gluconate 1 applic 07/31/17 22:00 Hibiclens For Decolonization - TP HS [facility] Epoetin Dylon 10,000 unit 08/01/17 14:40 Procrit - IVPUSH 08/01/17 14:41 ONCE ONE Heparin Sodium (Porcine) 5,000 unit 07/30/17 22:00 07/31/17 12:51 Heparin - SQ Not Given BID [facility] Mupirocin 1 applic 07/31/17 10:00 07/31/17 12:51 Bactroban Ointment (For Decolonization) - NS 08/03/17 21:59 Not Given BID [facility] Pantoprazole Sodium 40 mg 07/31/17 11:00 Protonix - PO BID [facility] ASSESSMENT/PLAN: Pt is a 52M w/ PMH HTN, DM, ESRD (on HD missed appointment today), CHF, anemia ( pt states his Hb was 9 at last HD) who presented to ED with dizziness, weakness , and URI symptoms. Pt is being admitted to ICU for Hyperkalemia, severe symptomatic anemia, and HD. #Severe Symptomatic Anemia -Hb 4.5 in ED -Pt s/p 4 units PRBC -patient received a 4th unit of blood today -f/u post transfusion CBC -s/p EGD which showed bleeding ulcer #Liver mass -Abd U/S showing hepatic mass -Unclear etiology -GI consult Dr. Denis #ESRD -Missed last 2 HD sessions. Pt has history of poor compliance -for HD tomorrow -f/u nephrology reccs #Class II-III CHF -per Cardio note from prior visit -no signs of pulm congestion or pedal edema #DM -diet controlled -glc 108 #HTN -BP stable at this time -restarted home coreg -holding valsartan for now -monitor BP #acute metabolic encephalopathy likely 2/2 uremia- resolved -improved s/p emergent HD #Hyperkalemia- resolved -K of 7.4 in ED -potassium 5.0 after HD and interventions #Lactic acidosis- resolved -LA 4.5 -> 3.4 -> 1.4 #Troponemia likely 2/2 decreased renal clearance - resolving -troponin trending down .7 -> .6 #FEN -no fluids indicated at this time -hyperkalemia has normalized; monitor -DM/low Na diet #Dispo -admit to ICU for hyper K, severe symptomatic anemia, HD #Prophylaxsis -heparin SQ 5ku TID -SCDs -no gi prophy indicated #dispo -admitted to med-surg for emergent serial HD and transfusions Visit type - Emergency Visit Emergency Visit: Yes ED Registration Date: 07/29/17 Care time: The patient presented to the Emergency Department on the above date and was hospitalized for further evaluation of their emergent condition. - New Patient This patient is new to me today: No - Critical Care Critical Care patient: No
[2017-07-31 19:38] LABS: MCH 33.2 pg (25.7-33.7); MCHC 34.5 g/dl (32.0-35.9); MEAN CELL VOLUME 96.2 fl (80-96); MEAN PLT VOLUME 9.1 fl (7.5-11.1); PLATELET COUNT 103 K/MM3 (134-434); WHITE BLOOD COUNT 7.3 K/mm3 (4.0-10.0)
[2017-07-31] MEDS ORDERED: CHLORHEXIDINE GLUCONATE 4% CLEANSER FOR DECOLONIZATION TP SCH (22:00)
[2017-07-31] MEDS: ATORVASTATIN CA 20 MG TABLET (FP) PO SCH (22:33)
[2017-07-31] MEDS: PANTOPRAZOLE 40 MG TABLET (FP) PO SCH (22:34)
[2017-07-31] MEDS: ACETAMINOPHEN 325 MG TABLET (FP) PO PRN (22:34)
[2017-08-01] MEDS: MUPIROCIN 2% TOPICAL OINTMENT FOR DECOLONIZATION NS SCH (00:17)
[2017-08-01] MEDS ORDERED: MAGNESIUM SULF 50% (8.12 MEQ/2 ML-1 GM VIAL) IVPB ONE (00:45)
[2017-08-01] MEDS: ACETAMINOPHEN 325 MG TABLET (FP) PO PRN ×3 (06:09→21:47)
[2017-08-01 07:54] LABS: MCH 33.5 pg (25.7-33.7); MCHC 34.4 g/dl (32.0-35.9); MEAN CELL VOLUME 97.4 fl (80-96); MEAN PLT VOLUME 9.7 fl (7.5-11.1); PLATELET COUNT 103 K/MM3 (134-434); RDW 22.7 % (11.9-15.9); WHITE BLOOD COUNT 7.5 K/mm3 (4.0-10.0)
[2017-08-01] MEDS: CALCIUM ACETATE 667 MG CAPSULE (FP) PO SCH ×3 (08:40→17:32)
[2017-08-01] MEDS ORDERED: MUPIROCIN 2% TOPICAL OINTMENT FOR DECOLONIZATION NS SCH (10:00)
[2017-08-01] MEDS: SUCRALFATE 1 GM TABLET (FP) PO SCH ×4 (10:27→21:46)
[2017-08-01] MEDS: PANTOPRAZOLE 40 MG TABLET (FP) PO SCH ×2 (10:27→21:45)
[2017-08-01] MEDS: CARVEDILOL 25 MG TABLET (FP) PO SCH ×2 (10:28→21:44)
[2017-08-01] MEDS: HEPARIN NA (PORCINE) 5,000 UNITS/ML 1ML VIAL SQ SCH ×3 (10:29→21:51)
--- NOTE | 2017-08-01 12:43 | PN ---
Progress Note (short form) - Note Progress Note: RENAL Last Vital Signs Temp Pulse Resp BP Pulse Ox 99.3 F 90 18 138/69 99 08/01/17 10:00 08/01/17 10:00 08/01/17 10:00 08/01/17 10:00 07/31/17 20:00 pt seen and examined denies complaints says he has been noncompliant with dialysis because he works PE lungs clear cvs ss2 rr abd soft ext no edema neuro a+ox3 CBC, BMP 08/01/17 07:25 07/31/17 05:00 Impression 1. ESRD 2. DM 3. diabetic nephropathy 4. HTN 5. obesity 6. anemia 7. iron deficiency 8. CHF 9. anemia 10. hyperkalemia 11. liver mass- probably cancer given high afp Plan to be dialyzed today I suggested home hemo or hd on a fourth shift but he prefers to attempt PD by gianna triple phase ct of liver to evaluate mass before dc MV
[2017-08-01 13:24] LABS: MCH 33.3 pg (25.7-33.7); MCHC 34.4 g/dl (32.0-35.9); MEAN CELL VOLUME 96.9 fl (80-96); MEAN PLT VOLUME 9.5 fl (7.5-11.1); PLATELET COUNT 96 K/MM3 (134-434); RDW 22.8 % (11.9-15.9); WHITE BLOOD COUNT 7.2 K/mm3 (4.0-10.0)
--- NOTE | 2017-08-01 13:36 | PN ---
Progress Note (short form) - Note Progress Note: asymptomatic. continues to have some dark tarry stools. denies CP, SOB, fever, chills, N/V/C/D Current Medications Generic Name Dose Route Start Last Admin Trade Name María PRN Reason Stop Dose Admin Acetaminophen 650 mg 07/31/17 18:33 08/01/17 06:09 Tylenol - PO 650 mg Q6H PRN Administration FEVER OR PAIN Atorvastatin Calcium 20 mg 08/01/17 22:00 Lipitor - PO HS [facility] Calcium Acetate 667 mg 08/01/17 08:00 08/01/17 12:16 Phoslo - PO 667 mg TIDCM [facility] Administration Carvedilol 25 mg 08/01/17 10:00 08/01/17 10:28 Coreg - PO Not Given BID [facility] Epoetin Dylon 10,000 unit 08/01/17 14:00 Procrit - IVPUSH 08/01/17 14:01 ONCE ONE Heparin Sodium (Porcine) 5,000 unit 08/01/17 10:00 08/01/17 10:29 Heparin - SQ Not Given BID [facility] Pantoprazole Sodium 40 mg 07/31/17 11:00 08/01/17 10:27 Protonix - PO 40 mg BID [facility] Administration Sucralfate 1 gm 08/01/17 10:00 08/01/17 10:27 Carafate - PO 1 gm QID [facility] Administration Last Vital Signs Temp Pulse Resp BP Pulse Ox 98.2 F 88 18 150/81 99 08/01/17 12:45 08/01/17 12:50 08/01/17 12:50 08/01/17 12:50 07/31/17 20:00 General NAD CV S1 S2 RRR no murmur/rub/gallop + HD catheter R chest Lungs CTA B/L no wheezing/rales/rhonchi Abdomen soft NT/ND Extremities no pedal edema CBCD WBC 7.2 K/mm3 (4.0-10.0) 08/01/17 12:50 RBC 2.21 M/mm3 (4.00-5.60) L 08/01/17 12:50 Hgb 7.4 GM/dL (11.7-16.9) L 08/01/17 12:50 Hct 21.4 % (35.4-49) L 08/01/17 12:50 MCV 96.9 fl (80-96) H 08/01/17 12:50 MCHC 34.4 g/dl (32.0-35.9) 08/01/17 12:50 RDW 22.8 % (11.9-15.9) H 08/01/17 12:50 Plt Count 96 K/MM3 (134-434) L 08/01/17 12:50 MPV 9.5 fl (7.5-11.1) 08/01/17 12:50 CMP Sodium 141 mmol/L (136-145) 07/31/17 05:00 Potassium 4.1 mmol/L (3.5-5.1) 07/31/17 05:00 Chloride 101 mmol/L (98-107) 07/31/17 05:00 Carbon Dioxide 29 mmol/L (21-32) 07/31/17 05:00 Anion Gap 11 (8-16) 07/31/17 05:00 BUN 53 mg/dL (7-18) H D 07/31/17 05:00 Creatinine 6.1 mg/dL (0.7-1.3) H D 07/31/17 05:00 Creat Clearance w eGFR 9.81 (>60) 07/31/17 05:00 Calcium 6.8 mg/dL (8.5-10.1) L* 07/31/17 05:00 Total Bilirubin 0.7 mg/dL (0.2-1.0) 07/31/17 05:00 AST 107 U/L (15-37) H D 07/31/17 05:00 ALT 48 U/L (12-78) D 07/31/17 05:00 Alkaline Phosphatase 189 U/L (45-117) H 07/31/17 05:00 Total Protein 5.6 g/dl (6.4-8.2) L 07/31/17 05:00 Albumin 2.5 g/dl (3.4-5.0) L 07/31/17 05:00 ASSESSMENT AND PLAN: 52yo M with PMH ESRD on HD, anemia, DM, CHF and HTN presented with vauge symptoms after missing several HD sessions 1. Acute Uremic encephalopathy- s/p emergent HD yesterday via HD catheter with significant improvement.will cont as per normal schedule (TTS). encouraged compliance. Nephrology on board 2. Duodenal ulcer with visible vessel and adherent clot s/p epi and clipping- s/ p 3 PRBC this admission. having black tarry stools as expected. slight trend down in Hgb, will monitor Q8H. cont clear liquid diet. on ppi bid and carafate. GI on board. 3. Hyperkalemia- s/p treatment in the ER. resolution with HD. cont to monitor 4. Liver mass- incidental 7.4cm liver lesion. refusing CT scan, states he prefers to do as outpatient. explained risks of delaying diagnosis. will d/w neprhology. AFP, CEA pending 5. Pseudohypocalcemia- Corrected Ca 8.36 6. AC Metabolic acidosis- due to lactic acidosis. now resolved 7. Elevated BNP- no signs of volume overload. likely falsely positive due to ESRD 8. Tropinemia- possible some demand ischemia vs false elevation in setting of ESRD 9. DM- diabetic clears. ISS, BGM. not on home medications. A1c pending (last one noted in the computer is 4.6 in 2016) 10. CHF- no signs of volume overload. cont coreg, statin, lasix 11. DVT ppx- SCD Visit type - Emergency Visit Emergency Visit: Yes ED Registration Date: 07/29/17 Care time: The patient presented to the Emergency Department on the above date and was hospitalized for further evaluation of their emergent condition. - New Patient This patient is new to me today: No - Critical Care Critical Care patient: No - Discharge Referral Referred to [facility] No
[2017-08-01 13:57] LABS: ANION GAP 10 (8-16); CO2 27 mmol/L (21-32); GLUCOSE,RANDOM 181 mg/dL (74-106)
[2017-08-01] MEDS ORDERED: EPOETIN ALFA 10,000 UNIT/1 ML VIAL IVPUSH ONE (14:00)
[2017-08-01 14:44] LABS: CALCIUM 6.2 mg/dL (8.5-10.1); CREATININE 7.9 mg/dL (0.7-1.3)
--- NOTE | 2017-08-01 16:47 | PN ---
Progress Note, Physician History of Present Illness: Chart reviewed. Pt seen in HD unit. No issues overnight, no melena. Hgb remains low, but table. No pain. Refuses CT abdomen, wants to defer to OP. Suspicion for liver tumor discussed. - Current Medication List Current Medications: Active Medications Acetaminophen (Tylenol -) 650 mg PO Q6H PRN PRN Reason: FEVER OR PAIN Last Admin: 08/01/17 15:00 Dose: 650 mg Atorvastatin Calcium (Lipitor -) 20 mg PO HS [facility] Calcium Acetate (Phoslo -) 667 mg PO TIDCM [facility] Last Admin: 08/01/17 12:16 Dose: 667 mg Carvedilol (Coreg -) 25 mg PO BID [facility] Last Admin: 08/01/17 10:28 Dose: Not Given Heparin Sodium (Porcine) (Heparin -) 5,000 unit SQ BID [facility] Last Admin: 08/01/17 10:29 Dose: Not Given Pantoprazole Sodium (Protonix -) 40 mg PO BID [facility] Last Admin: 08/01/17 10:27 Dose: 40 mg Sucralfate (Carafate -) 1 gm PO QID [facility] Last Admin: 08/01/17 15:00 Dose: Not Given - Objective Vital Signs: Vital Signs Temperature 98.1 F 08/01/17 15:40 Pulse Rate 86 08/01/17 16:37 Respiratory Rate 18 08/01/17 16:37 Blood Pressure 149/89 08/01/17 16:37 O2 Sat by Pulse Oximetry (%) 97 08/01/17 09:00 Vital Signs (72 hours) 07/29/17 07/29/17 07/29/17 17:07 19:49 20:31 Temperature 97.9 F 98.7 F Pulse Rate 83 94 H Pulse Rate [ 88 Apical] Respiratory 20 18 18 Rate Blood Pressure 124/69 131/76 Blood Pressure 128/82 [Arm] O2 Sat by Pulse 100 100 100 Oximetry (%) 07/29/17 07/29/17 07/29/17 20:35 20:52 21:55 Temperature 97.5 F L 97.6 F 98.4 F Pulse Rate 94 H Pulse Rate [ 87 89 Apical] Respiratory 18 18 18 Rate Blood Pressure 142/82 Blood Pressure 117/74 130/83 [Arm] O2 Sat by Pulse 100 100 Oximetry (%) 07/29/17 07/29/17 07/29/17 21:58 22:00 22:30 Temperature Pulse Rate 94 H 93 H 97 H Pulse Rate [ Apical] Respiratory 17 18 18 Rate Blood Pressure 98/69 131/76 96/67 Blood Pressure [Arm] O2 Sat by Pulse Oximetry (%) 07/29/17 07/29/17 07/29/17 23:00 23:30 23:49 Temperature Pulse Rate 93 H 93 H 89 Pulse Rate [ Apical] Respiratory 18 18 20 Rate Blood Pressure 98/69 96/78 96/78 Blood Pressure [Arm] O2 Sat by Pulse Oximetry (%) 07/30/17 07/30/17 07/30/17 00:00 00:05 02:00 Temperature 98.9 F Pulse Rate 88 90 103 H Pulse Rate [ Apical] Respiratory 18 18 20 Rate Blood Pressure 103/67 113/74 141/81 Blood Pressure [Arm] O2 Sat by Pulse Oximetry (%) 07/30/17 07/30/17 07/30/17 04:00 06:00 08:00 Temperature Pulse Rate 95 H 98 H 83 Pulse Rate [ Apical] Respiratory 20 17 20 Rate Blood Pressure 146/85 135/75 141/83 Blood Pressure [Arm] O2 Sat by Pulse Oximetry (%) 07/30/17 07/30/17 07/30/17 10:00 11:27 14:09 Temperature 98.8 F 98.3 F Pulse Rate 91 H 84 Pulse Rate [ Apical] Respiratory 20 20 20 Rate Blood Pressure 126/73 144/73 Blood Pressure [Arm] O2 Sat by Pulse 100 Oximetry (%) 07/30/17 07/30/17 07/30/17 16:09 18:00 18:05 Temperature 98.8 F Pulse Rate 79 86 88 Pulse Rate [ Apical] Respiratory 20 20 18 Rate Blood Pressure 137/79 132/78 144/75 Blood Pressure [Arm] O2 Sat by Pulse Oximetry (%) 07/30/17 07/30/17 07/30/17 18:10 18:40 19:10 Temperature Pulse Rate 87 83 82 Pulse Rate [ Apical] Respiratory 18 18 18 Rate Blood Pressure 151/85 132/78 128/97 Blood Pressure [Arm] O2 Sat by Pulse Oximetry (%) 07/30/17 07/30/17 07/30/17 19:40 20:00 20:10 Temperature 98.5 F Pulse Rate 81 86 77 Pulse Rate [ Apical] Respiratory 18 18 18 Rate Blood Pressure 139/74 122/70 122/70 Blood Pressure [Arm] O2 Sat by Pulse 100 Oximetry (%) 07/30/17 07/30/17 07/30/17 20:40 21:10 21:25 Temperature Pulse Rate 81 79 79 Pulse Rate [ Apical] Respiratory 18 18 18 Rate Blood Pressure 123/73 123/76 124/70 Blood Pressure [Arm] O2 Sat by Pulse Oximetry (%) 07/30/17 07/30/17 07/31/17 21:30 22:00 00:00 Temperature 98.8 F Pulse Rate 74 96 H 88 Pulse Rate [ Apical] Respiratory 18 20 20 Rate Blood Pressure 131/69 139/78 144/70 Blood Pressure [Arm] O2 Sat by Pulse Oximetry (%) 07/31/17 07/31/17 07/31/17 02:00 04:00 06:00 Temperature 98.6 F 98.2 F Pulse Rate 73 88 84 Pulse Rate [ Apical] Respiratory 18 18 18 Rate Blood Pressure 119/72 114/70 134/70 Blood Pressure [Arm] O2 Sat by Pulse Oximetry (%) 07/31/17 07/31/17 07/31/17 08:00 09:00 10:30 Temperature Pulse Rate 94 H 103 H Pulse Rate [ Apical] Respiratory 20 20 20 Rate Blood Pressure 125/69 142/76 Blood Pressure [Arm] O2 Sat by Pulse 100 Oximetry (%) 07/31/17 07/31/17 07/31/17 12:00 14:00 18:40 Temperature 99.0 F 100.0 F H Pulse Rate 104 H 101 H 97 H Pulse Rate [ Apical] Respiratory 20 19 19 Rate Blood Pressure 145/76 151/79 151/83 Blood Pressure [Arm] O2 Sat by Pulse Oximetry (%) 07/31/17 08/01/17 08/01/17 20:00 02:00 06:00 Temperature 100.5 F H 99.6 F 100.1 F H Pulse Rate 93 H 88 89 Pulse Rate [ Apical] Respiratory 18 18 18 Rate Blood Pressure 145/89 132/72 140/80 Blood Pressure [Arm] O2 Sat by Pulse 99 Oximetry (%) 08/01/17 08/01/17 08/01/17 09:00 10:00 12:45 Temperature 99.3 F 98.2 F Pulse Rate 90 96 H Pulse Rate [ Apical] Respiratory 18 18 Rate Blood Pressure 138/69 124/76 Blood Pressure [Arm] O2 Sat by Pulse 97 Oximetry (%) 08/01/17 08/01/17 08/01/17 12:50 13:20 13:50 Temperature Pulse Rate 88 82 84 Pulse Rate [ Apical] Respiratory 18 18 18 Rate Blood Pressure 150/81 137/77 123/70 Blood Pressure [Arm] O2 Sat by Pulse Oximetry (%) 08/01/17 08/01/17 08/01/17 14:20 14:50 15:20 Temperature Pulse Rate 82 86 81 Pulse Rate [ Apical] Respiratory 18 18 18 Rate Blood Pressure 151/67 140/70 157/77 Blood Pressure [Arm] O2 Sat by Pulse Oximetry (%) 08/01/17 08/01/17 08/01/17 15:40 15:50 16:20 Temperature 98.1 F Pulse Rate 82 91 H 79 Pulse Rate [ Apical] Respiratory 18 18 18 Rate Blood Pressure 151/67 157/83 162/88 Blood Pressure [Arm] O2 Sat by Pulse Oximetry (%) 08/01/17 16:37 Temperature Pulse Rate 86 Pulse Rate [ Apical] Respiratory 18 Rate Blood Pressure 149/89 Blood Pressure [Arm] O2 Sat by Pulse Oximetry (%) Constitutional: Yes: No Distress, Calm Eyes: Yes: Conjunctiva Clear HENT: Yes: Atraumatic Neck: Yes: Supple Cardiovascular: Yes: Regular Rate and Rhythm Respiratory: Yes: Regular Gastrointestinal: Yes: Normal Bowel Sounds, Soft. No: Tenderness Neurological: Yes: Alert, Oriented Labs: CBC, BMP 08/01/17 12:50 08/01/17 12:50 INR, PTT INR 1.30 (0.82-1.09) H 07/29/17 18:00 CBCD WBC 7.2 K/mm3 (4.0-10.0) 08/01/17 12:50 RBC 2.21 M/mm3 (4.00-5.60) L 08/01/17 12:50 Hgb 7.4 GM/dL (11.7-16.9) L 08/01/17 12:50 Hct 21.4 % (35.4-49) L 08/01/17 12:50 MCV 96.9 fl (80-96) H 08/01/17 12:50 MCHC 34.4 g/dl (32.0-35.9) 08/01/17 12:50 RDW 22.8 % (11.9-15.9) H 08/01/17 12:50 Plt Count 96 K/MM3 (134-434) L 08/01/17 12:50 MPV 9.5 fl (7.5-11.1) 08/01/17 12:50 CMP Sodium 133 mmol/L (136-145) L 08/01/17 12:50 Potassium 3.9 mmol/L (3.5-5.1) 08/01/17 12:50 Chloride 96 mmol/L (98-107) L 08/01/17 12:50 Carbon Dioxide 27 mmol/L (21-32) 08/01/17 12:50 Anion Gap 10 (8-16) 08/01/17 12:50 BUN 70 mg/dL (7-18) H D 08/01/17 12:50 Creatinine 7.9 mg/dL (0.7-1.3) H* D 08/01/17 12:50 Creat Clearance w eGFR 9.81 (>60) 07/31/17 05:00 Calcium 6.2 mg/dL (8.5-10.1) L* 08/01/17 12:50 Total Bilirubin 0.7 mg/dL (0.2-1.0) 07/31/17 05:00 AST 107 U/L (15-37) H D 07/31/17 05:00 ALT 48 U/L (12-78) D 07/31/17 05:00 Alkaline Phosphatase 189 U/L (45-117) H 07/31/17 05:00 Total Protein 5.6 g/dl (6.4-8.2) L 07/31/17 05:00 Albumin 2.5 g/dl (3.4-5.0) L 07/31/17 05:00 - ....Imaging Cat Scan: Other (refuses at this time.) Problem List - Problems (1) Gastrointestinal bleeding Code(s): K92.2 - GASTROINTESTINAL HEMORRHAGE, UNSPECIFIED (2) Acute blood loss anemia Code(s): D62 - ACUTE POSTHEMORRHAGIC ANEMIA (3) Liver mass Code(s): R16.0 - HEPATOMEGALY, NOT ELSEWHERE CLASSIFIED Assessment/Plan Hgb stable, no signs of bleeding thus far. Asymptomatic Contine clear liquid diet today Hgb @ 6 pm monitor for melena CT abdomen w/ as OP to be coordinated with HD will follow in am
[2017-08-01 17:27] LABS: CREATININE 2.8 mg/dL (0.7-1.3)
[2017-08-01 18:40] LABS: PLATELET COUNT 101 K/MM3 (134-434); RDW 23.4 % (11.9-15.9); WHITE BLOOD COUNT 5.9 K/mm3 (4.0-10.0)
[2017-08-01 19:21] LABS: ANISOCYTOSIS 3+; PLATELET ESTIMATE DECREASED (NORMAL)
[2017-08-01] MEDS ORDERED: ATORVASTATIN CA 20 MG TABLET (FP) PO SCH (22:00)
[2017-08-01] MEDS ORDERED: CHLORHEXIDINE GLUCONATE 4% CLEANSER FOR DECOLONIZATION TP SCH (22:00)
[2017-08-02] MEDS: CALCIUM ACETATE 667 MG CAPSULE (FP) PO SCH ×2 (08:12→12:10)
[2017-08-02 08:19] LABS: MCH 33.6 pg (25.7-33.7); MCHC 34.4 g/dl (32.0-35.9); MEAN CELL VOLUME 97.6 fl (80-96); MEAN PLT VOLUME 9.8 fl (7.5-11.1); PLATELET COUNT 102 K/MM3 (134-434); RDW 23.8 % (11.9-15.9); WHITE BLOOD COUNT 8.1 K/mm3 (4.0-10.0)
[2017-08-02] MEDS: CARVEDILOL 25 MG TABLET (FP) PO SCH (09:11)
[2017-08-02] MEDS: SUCRALFATE 1 GM TABLET (FP) PO SCH (09:11)
[2017-08-02] MEDS: PANTOPRAZOLE 40 MG TABLET (FP) PO SCH (09:12)
[2017-08-02] MEDS: HEPARIN NA (PORCINE) 5,000 UNITS/ML 1ML VIAL SQ SCH (09:12)
[2017-08-02 09:17] VITALS: BP 146/81; PULSE 87; TEMP 97.6
--- NOTE | 2017-08-02 10:48 | PN ---
Progress Note (short form) - Note Progress Note: RENAL Last Vital Signs Temp Pulse Resp BP Pulse Ox 99.3 F 90 18 138/69 99 08/01/17 10:00 08/01/17 10:00 08/01/17 10:00 08/01/17 10:00 07/31/17 20:00 pt seen and examined denies complaints says he has been noncompliant with dialysis because he works PE lungs clear cvs ss2 rr abd soft ext no edema neuro a+ox3 CBC, BMP 08/01/17 07:25 07/31/17 05:00 Impression 1. ESRD 2. DM 3. diabetic nephropathy 4. HTN 5. obesity 6. anemia 7. iron deficiency 8. CHF 9. anemia 10. hyperkalemia 11. liver mass- probably cancer given high afp Plan pt refuses triple phase ct. I informed him that [place] [phone] he probably has cancer. He was not too excited (surprising) MV
[2017-08-02 11:35] LABS: MCH 33.4 pg (25.7-33.7); MCHC 34.4 g/dl (32.0-35.9); MEAN PLT VOLUME 8.8 fl (7.5-11.1); PLATELET COUNT 100 K/MM3 (134-434); RDW 23.3 % (11.9-15.9); WHITE BLOOD COUNT 7.7 K/mm3 (4.0-10.0)
--- NOTE | 2017-08-02 15:08 | PN ---
Teaching Attending Note Name of Resident: Cristian Rutherford ATTENDING PHYSICIAN STATEMENT I saw and evaluated the patient. I reviewed the resident's note and discussed the case with the resident. I agree with the resident's findings and plan as documented. Notified by Resident that pt signed out AMA. resident counseled on need to stay as Hgb is dropping as well as concern for liver mass. In setting of severely elevated AFP high risk of malignancy and should have scan done inpatient at this time. as per resident. pt verbalized understanding, accepts risks of leaving and states he will follow up outpatient.
--- NOTE | 2017-08-02 21:57 | DS ---
Physical Exam: SUBJECTIVE: Patient seen and examined at bedside. Patient states that he feels better and wants to go home and back to work. OBJECTIVE: Vital Signs Period Temp Pulse Resp BP Sys/Hayden Pulse Ox Last 24 Hr 97.6 F-99.2 F 82-89 18-20 142-156/77-84 99 PHYSICAL EXAM GENERAL: The patient is awake, alert, and fully oriented, in no acute distress. LUNGS: Breath sounds equal, clear to auscultation bilaterally, no wheezes, no crackles, no accessory muscle use. HEART: Regular rate and rhythm, S1, S2 without murmur, rub or gallop. ABDOMEN: Soft, nontender, nondistended, normoactive bowel sounds, no guarding, no rebound. EXTREMITIES: 2+ pulses, warm, well-perfused, no edema. PSYCH: Normal mood, normal affect. SKIN: Warm, dry, normal turgor, no rashes or lesions noted. LABS Laboratory Results - last 24 hr 07/30/17 07/31/17 08/02/17 18:53 05:00 06:10 WBC 8.1 D RBC 2.21 L Hgb 7.4 L Hct 21.5 L MCV 97.6 H MCH 33.6 MCHC 34.4 RDW 23.8 H Plt Count 102 L MPV 9.8 POC Glucometer [id number] Hemoglobin A1c % 5.6 D 08/02/17 08/02/17 11:11 11:20 WBC 7.7 RBC 2.09 L Hgb 7.0 L Hct 20.3 L MCV 97.0 H MCH 33.4 MCHC 34.4 RDW 23.3 H Plt Count 100 L MPV 8.8 D POC Glucometer 162 Hemoglobin A1c % HOSPITAL COURSE: Date of Admission:07/29/17 The patient is a 52 yo m w/ PMH HTN, DM, CKD on HD, CHF, anemia who presented to ED c/o dizziness and malaise. In the ED, he was found to have a Hb 4.5, K 7.4 , a Cr of 11.8 and a Lactic acid of 3.4. The patient was admitted to the Hospital for emergent HD. He was treated with procrit, valsartan, furosimide, hemodialysis and 4 units of PRBCs. An abdominal ultrasound showed a possible mass lesion in the patient's liver. Gastroenterology was consulted. Nephrology was consulted. The patient improved after dialysis and his condition stabilized. He was advised to undergo inpatient CT to evaluate his liver mass, but the patient elected to leave against medical advice and follow up as an outpatient. The patient was made aware of all of the risks of doing so as well as the risks of not getting the CT including worsening of his anemia, worsening of his chronic conditions and potential permanent disability as well as . The patient verbalized understanding of these risks. He was urged to follow closely with both Dr. Denis and his PCP upon going home. Date of Discharge: 08/02/17 Minutes to complete discharge: 20 Discharge Summary Reason For Visit: DIALYSIS PATIENT Condition: Improved - Instructions Diet, Activity, Other Instructions: You were admitted for the treatment of your anemia and for your dialysis. You have elected to sign out Against medical advice and have verbalized understanding of the potential risks of doing so. You should follow up with your primary care physician within one week of going home. You should also follow up with Dr. Denis within one week of going home. You should get your CT scan of the abdomen and pelvis as soon as you can. Dr Denis can give you a prescription for it. If you have an shortness of breath, chest pain or if any of your symptoms get worse, please call your doctor or return to the Emergency department. Referrals: Jono Perez [Primary Care Provider] - Alex Denis MD [Staff Physician] - Disposition: AGAINST MEDICAL ADVICE - Home Medications Comprehensive Discharge Medication List: Ambulatory Orders Carvedilol [Coreg] 25 mg PO BID #60 tablet 10/01/16 Calcium Acetate 670 mg PO TID 05/05/17 Valsartan [Diovan] 160 mg PO DAILY 05/05/17 Atorvastatin Calcium 20 mg PO HS 07/30/17 Furosemide [Lasix -] 40 mg PO DAILY 07/30/17 Sevelamer Carbonate [Renvela -] 800 mg PO TID 07/30/17 This patient is new to me today: No Emergency Visit: Yes ED Registration Date: 07/29/17 Care time: The patient presented to the Emergency Department on the above date and was hospitalized for further evaluation of their emergent condition. Critical Care patient: No - Discharge Referral Referred to [facility] No
[2017-08-03] MEDS ORDERED: FUROSEMIDE 40 MG TABLET (FP) PO SCH (10:00)
[2017-08-03] MEDS ORDERED: VALSARTAN 160 MG TABLET (UD) PO SCH (10:00)
--- NOTE | 2017-08-03 15:44 | PATH ---
Surgical Pathology Report Patient Name: JUDITH VALLE [facility]. Rec. #: [id number] /Age/Gender: 1965 (Age: 52) / M Account: [id number] Location: [address] [place] [address] Taken: 07/31/2017 Received: 07/31/2017 Reported: 08/03/2017 Physicians: Alex Denis M.D. Specimen(s) Received A: BX 2ND PORTION OF DUODENAL BULB ULCER B: BX ANTRUM C: BX DISTAL ESOPHAGUS Clinical History GI bleed Second portion duodenum bleed, duodenal ulcers, esophagitis, poor prep Final Diagnosis A. SECOND PORTION OF DUODENAL BULB, ULCER, BIOPSY: SMALL BOWEL/DUODENAL MUCOSA WITH MILD ACUTE DUODENITIS. B. STOMACH, ANTRAL, BIOPSY: GASTRIC ANTRAL MUCOSA WITH MILD CHRONIC GASTRITIS. IMMUNOHISTOCHEMICAL STAIN FOR H. PYLORI IS NEGATIVE C. DISTAL ESOPHAGUS, BIOPSY: SQUAMOCOLUMNAR MUCOSA WITH FOCAL ACUTE AND CHRONIC INFLAMMATION OF THE GLANDULAR COMPONENT. Electronically Signed Saritha Stephenson M.D. Gross Description A. Received in formalin, labeled "biopsy second portion duodenal bulb" are 2 colón, irregular portions of soft tissue measuring 0.1 and 0.4 cm. in greatest dimension. The specimens are submitted in toto in one cassette. B. Received in formalin, labeled "biopsy antral biopsy" are 3 colón, irregular portions of soft tissue ranging from 0.2-0.5 cm. in greatest dimension. The specimens are submitted in toto in one cassette. C. Received in formalin, labeled "biopsy distal esophagus" is a colón, irregular portion of soft tissue measuring 0.4 cm. in greatest dimension. The specimen is submitted in toto in one cassette. 07/31/[facility]
== END 2017-08-02 13:22 | disposition left against medical advice (07) | DRG 811 ==
LOC: JER 17:01 → JERBED 20:31 → JICU 22:13 → J5S 07-31 14:24
PROVIDERS: ADMIT Internal Medicine; ATTEND Internal Medicine
PROC: 0DD98ZX Extraction of Duodenum, Via Natural or Artificial Opening Endoscopic, Diagnostic (ICD-10-PCS; principal; 2017-07-29)
PROC: 0DD68ZX Extraction of Stomach, Via Natural or Artificial Opening Endoscopic, Diagnostic (ICD-10-PCS; 2017-07-29)
PROC: 0DD58ZX Extraction of Esophagus, Via Natural or Artificial Opening Endoscopic, Diagnostic (ICD-10-PCS; 2017-07-29)
PROC: 3E0G8GC Introduction of Other Therapeutic Substance into Upper GI, Via Natural or Artificial Opening Endoscopic (ICD-10-PCS; 2017-07-29)
PROC: 0W3P8ZZ Control Bleeding in Gastrointestinal Tract, Via Natural or Artificial Opening Endoscopic (ICD-10-PCS; 2017-07-29)
PROC: 0DJD8ZZ Inspection of Lower Intestinal Tract, Via Natural or Artificial Opening Endoscopic (ICD-10-PCS; 2017-07-29)
PROC: 5A1D70Z Performance of Urinary Filtration, Intermittent, Less than 6 Hours Per Day (ICD-10-PCS; 2017-07-29)
PROC: 30233N1 Transfusion of Nonautologous Red Blood Cells into Peripheral Vein, Percutaneous Approach (ICD-10-PCS; 2017-07-29)
DX: D64.89 Other specified anemias (principal); N18.6 End stage renal disease; G93.41 Metabolic encephalopathy; K26.4 Chronic or unspecified duodenal ulcer with hemorrhage; I13.2 Hypertensive heart and chronic kidney disease with heart failure and with stage 5 chronic kidney disease, or end stage renal disease; A08.39 Other viral enteritis; K92.2 Gastrointestinal hemorrhage, unspecified; E87.2 Acidosis; E87.5 Hyperkalemia; D62 Acute posthemorrhagic anemia; E11.22 Type 2 diabetes mellitus with diabetic chronic kidney disease; I50.9 Heart failure, unspecified; E11.21 Type 2 diabetes mellitus with diabetic nephropathy; E66.8 Other obesity; Z68.32 Body mass index [BMI] 32.0-32.9, adult; D63.1 Anemia in chronic kidney disease; R16.0 Hepatomegaly, not elsewhere classified; J06.9 Acute upper respiratory infection, unspecified; E83.51 Hypocalcemia; K20.8 Other esophagitis; Z99.2 Dependence on renal dialysis; Z91.14 Patient's other noncompliance with medication regimen
CPT/HCPCS: 36415; 36430; 71010-TC; 76700-TC; 80048; 80053; 82105; 82378; 82550; 82565; 82803; 83036; 83605; 83735; 83880; 84100; 84484; 84520; 85025; 85027; 85610; 85730; 86704; 86706; 86708; 86803; 86850; 86900; 86901; 86922; 87040; 87340; 87804; 88305-TC; 93005; 93010; 99285-25; J0885; J1644; P9038; P9058

== ENCOUNTER 2018-01-26 16:08 | Inpatient (IN) | payer BC ==
[2018-01-26] MEDS ORDERED: PANTOPRAZOLE SODIUM 40 MG VIAL IVPB ONE (16:33)
--- NOTE | 2018-01-26 16:33 | PDOC ---
History of Present Illness - General History Source: Patient, EMS Exam Limitations: No Limitations - History of Present Illness Initial Comments: The patient is a 52 year old male with a significant past medical history of CHF , GI bleeds, Dialysis (Thu,, Thu), HTN, HLD, renal insufficiency, and diabetes (diet-controlled) who was brought in by EMS for evaluation for low hemoglobin (5.5) since this afternoon. The patient reports undergoing dialysis for less than an hour, and knew something was off and asked his doctor to check his hemoglobin level which was noted to be 5.5, previously 12.8 as of last , which prompted his transfer to the ED. The patient reports being admitted to [facility] on Thursday for severe abdominal pain, diarrhea, and emesis, and was discharged on Thursday. The patient reports associated symptoms of chest soreness and generalized weakness. Of note, the patients last known full dialysis treatment was on (01/21). The patient denies sick contact, shortness of breath, headache, and dizziness. Denies fevers, chills, nausea, vomiting, diarrhea, and constipation. Denies dysuria, frequency, urgency, and hematuria. Allergies: Penicillins Past surgical history: Left Cataract and Left Retinal Detachment Social history: No reported cigarette, alcohol, or drug use. <Eris Barba - Last Filed: 01/26/18 18:20> <Laine Watkins - Last Filed: 01/27/18 01:47> - General Chief Complaint: Revisit, Lab Variance Stated Complaint: BLOOD PROBLEM Past History <Eris Barba - Last Filed: 01/26/18 18:20> - Past Medical History Diabetes: Yes (DIET CONTROLLED) Dialysis: Yes (,,) Disorders: Yes (RENAL INSUFFICIENCY) HTN: Yes Hypercholesterolemia: No - Suicide/Smoking/Psychosocial Hx Smoking Status: No Smoking History: Never smoked Have you smoked in the past 12 months: No Number of Cigarettes Smoked Daily: 0 Hx Alcohol Use: Yes (2 glasses wine/day) Drug/Substance Use Hx: No Substance Use Type: Alcohol Hx Substance Use Treatment: No <Laine Watkins - Last Filed: 01/27/18 01:47> - Past Medical History Allergies/Adverse Reactions: Allergies Allergy/AdvReac Type Severity Reaction Status Date / Time Penicillins Allergy Intermediate Verified 01/26/18 16:42 Home Medications: Ambulatory Orders Carvedilol [Coreg] 25 mg PO BID #60 tablet 10/01/16 Calcium Acetate 670 mg PO TID 05/05/17 Valsartan [Diovan] 160 mg PO DAILY 05/05/17 Furosemide [Lasix -] 40 mg PO DAILY 07/30/17 Review of Systems - Review of Systems Able to Perform ROS?: Yes Comments:: CONSTITUTIONAL: (+)Generalized weakness. Absent: fever, chills, diaphoresis, malaise, loss of appetite HEENT: Absent: rhinorrhea, nasal congestion, throat pain, throat swelling, difficulty swallowing, mouth swelling, ear pain, eye pain, visual Changes CARDIOVASCULAR: Absent: chest pain, syncope, palpitations, irregular heart rate, lightheadedness , peripheral edema RESPIRATORY: Absent: cough, shortness of breath, dyspnea with exertion, orthopnea, wheezing, stridor, hemoptysis GASTROINTESTINAL: Absent: abdominal pain, abdominal distension, nausea, vomiting, diarrhea, constipation, melena, hematochezia GENITOURINARY: Absent: dysuria, frequency, urgency, hesitancy, hematuria, flank pain, genital pain MUSCULOSKELETAL: Absent: myalgia, arthralgia, joint swelling SKIN: (+)Pallor Absent: rash, itching HEMATOLOGIC/IMMUNOLOGIC: Absent: easy bleeding, easy bruising, lymphadenopathy, frequent infections ENDOCRINE: Absent: unexplained weight gain, unexplained weight loss, heat intolerance, cold intolerance NEUROLOGIC: Absent: headache, focal weakness or paresthesias, dizziness seizure, mental status changes, bladder or bowel incontinence PSYCHIATRIC: Absent: anxiety, depression, suicidal or homicidal ideation, hallucinations. <Eris Barba - Last Filed: 01/26/18 18:20> *Physical Exam - Vital Signs Last Vital Signs Temp Pulse Resp BP Pulse Ox 97.1 F L 80 17 128/72 100 01/26/18 16:34 01/26/18 16:34 01/26/18 16:34 01/26/18 16:34 01/26/18 16:34 - Physical Exam Comments: GENERAL: Well developed, well nourished. Awake and alert. No acute distress. HEENT: Normocephalic, atraumatic. PERRLA, EOMI. No conjunctival pallor. Sclera are non- icteric. Moist mucous membranes. Oropharynx is clear. NECK: Supple. Full ROM. No JVD. Carotid pulses 2+ and symmetric, without bruits. No thyromegaly. No lymphadenopathy. CARDIOVASCULAR: Regular rate and rhythm. No murmurs, rubs, or gallops. Distal pulses are 2+ and symmetric. PULMONARY: No evidence of respiratory distress. Lungs clear to auscultation bilaterally. No wheezing, rales or rhonchi. CHEST: (+)Permcath site on right interior chest. Dry and Intact. ABDOMINAL: Soft. Non-tender. Non-distended. No rebound or guarding. No organomegaly. Normoactive bowel sounds. MUSCULOSKELETAL Normal range of motion at all joints. No bony deformities or tenderness. No CVA tenderness. EXTREMITIES: (+)Chronic RLE edema. No cyanosis. No clubbing. No calf tenderness. SKIN: Warm and dry. Normal capillary refill. No rashes. No jaundice. NEUROLOGICAL: Alert, awake, appropriate. Cranial nerves 2-12 intact. No deficits to light touch and temperature in face, upper extremities and lower extremities. No motor deficits in the in face, upper extremities and lower extremities. Normoreflexic in the upper and lower extremities. Normal speech. Toes are down- going bilaterally. PSYCHIATRIC: Cooperative. Good eye contact. Appropriate mood and affect. <Eirs Barba - Last Filed: 01/26/18 18:20> ED Treatment Course - LABORATORY CBC & Chemistry Diagram: 01/26/18 16:43 01/26/18 16:43 - ADDITIONAL ORDERS Additional order review: Laboratory Results 01/26/18 01/26/18 16:43 16:43 Sodium 134 L Potassium 5.3 H D Chloride 95 L Carbon Dioxide 21 D Anion Gap 18 H BUN > 150 H* D Creatinine 13.3 H* D Creat Clearance w eGFR 3.99 Random Glucose 96 D Calcium 6.6 L* Total Bilirubin 0.4 D AST 78 H D ALT 80 H D Alkaline Phosphatase 396 H D Total Protein 5.9 L Albumin 2.8 L Lipase 944 H Crossmatch See Detail 01/26/18 16:43 RBC 1.65 L D MCV 109.5 H MCHC 34.9 RDW 15.9 D MPV 10.2 D Neutrophils % 64.5 Lymphocytes % 22.4 D Monocytes % 11.8 H Eosinophils % 1.0 D Basophils % 0.3 - Medications Given in the ED: ED Medications Discontinued Medications Generic Name Dose Route Start Last Admin Trade Name Freq PRN Reason Stop Dose Admin Pantoprazole Sodium 40 mg 01/26/18 16:33 01/26/18 17:20 Protonix Iv IVPB 01/26/18 16:34 40 mg ONCE ONE Administration <Eris Barba - Last Filed: 01/26/18 18:20> - LABORATORY CBC & Chemistry Diagram: 01/26/18 22:45 01/26/18 22:45 <Laine Watkins - Last Filed: 01/27/18 01:47> Medical Decision Making - Critical Care Time Total Critical Care Time (minutes): 60 Critical Care Statement: The care of this patient involved high complexity decision making to prevent further life threatening deterioration of the patient 's condition and/or to evaluate & treat vital organ system(s) failure or risk of failure. - Medical Decision Making Consulted with Dr. Quezada at 18:[address] Toney at 18:09. Consulted with Dr. Toney at 18:20. <Eris Barba - Last Filed: 01/26/18 18:20> - Medical Decision Making 01/26/18 17:44 52-year-old male brought in by ambulance from hemodialysis center at [facility]. He is feeling fatigued and sluggish and asked to have his hemoglobin checked, which they did. It was 5. 5 at the Dialysis Ctr. Last week the hemoglobin was 12.8 and there was concern for GI bleed because this occurred in the past he had Less than 1 hour dialysis. His furniture duster, Dr. Quezada did see him in the emergency department and ordered blood. The concern was for CHF with his blood transfusions, but the furniture duster said that he still wanted him to have 2 units packed RBCs and if he needed dialysis afterwards, he will be taken to dialysis Rectal exam normal tone no thrombosed hemorrhoids, no obvious blood in stool . Hemoccult was positive for blood Patient admitted to ICU silicate simultaneous blood transfusions and hemodialysis 01/27/18 01:43 <Laine Watkins - Last Filed: 01/27/18 01:47> *DC/Admit/Observation/Transfer - Attestations Scribe Attestion: Documentation prepared by Eris Barba, acting as medical records director for Laine Watkins MD. <Eris Barba - Last Filed: 01/26/18 18:20> - Discharge Dispostion Admit: Yes <Laine Watkins - Last Filed: 01/27/18 01:47> Diagnosis at time of Disposition: End stage chronic kidney disease, Hyperkalemia Gastrointestinal bleeding Qualifiers: GI bleed type/associated pathology: unspecified gastrointestinal hemorrhage type Qualified Code(s): K92.2 - Gastrointestinal hemorrhage, unspecified Anemia Qualifiers: Anemia type: due to chronic kidney disease Chronic kidney disease stage: on chronic dialysis Qualified Code(s): N18.6 - End stage renal disease
[2018-01-26 17:11] LABS: BASO % 0.3 % (0-2.0); LYMPH % 22.4 % (8-40); MCH 38.2 pg (25.7-33.7); MCHC 34.9 g/dl (32.0-35.9); MEAN CELL VOLUME 109.5 fl (80-96); MEAN PLT VOLUME 10.2 fl (7.5-11.1); MONO % 11.8 % (3.8-10.2); NEUT % 64.5 % (42.8-82.8); PLATELET COUNT 107 K/MM3 (134-434); RBC 1.65 M/mm3 (4.00-5.60); RDW 15.9 % (11.9-15.9); WHITE BLOOD COUNT 4.3 K/mm3 (4.0-10.0)
[2018-01-26] MEDS ORDERED: PANTOPRAZOLE SODIUM 40 MG VIAL ONE (17:16)
[2018-01-26 17:19] LABS: HEMOGLOBIN 6.3 GM/dL (11.7-16.9)
[2018-01-26 17:34] LABS: INR 0.96 (0.82-1.09); PROTHROMBIN TIME (PATIENT) 10.9 SEC (9.98-11.88)
--- NOTE | 2018-01-26 17:34 | CONSULT ---
Consult Consult Specialty:: Nephrology Reason for Consultation:: ESRD - History of Present Illness Chief Complaint: I sent pt in for anemia History of Present Illness: Pt is a 52 year old male with pmhx of ESRD and DM who presented to the HD unit today. He appeared very pale so a spot hg was tested and he was found to have a hg of 5.5. I sent him in for transfusion. He was on the HD machine for about 10 minutes as outp. He says that he may have passed some blood with his stool. His stools had been dark. His last hg before this was 12.8 from January 14. He does have a history of GI bleed. He is awake and alert. He denies chest pain or shortness of breath. - History Source History Provided By: Patient - Past Medical History Cardio/Vascular: Yes: HTN, Hyperlipdemia Renal/: Yes: Renal Failure, Renal Inusuff Endocrine: Yes: Diabetes Mellitus - Alcohol/Substance Use Hx Alcohol Use: No History of Substance Use: reports: None - Smoking History Smoking history: Never smoked Have you smoked in the past 12 months: No Aproximately how many cigarettes per day: 0 - Social History ADL: Independent Home Medications - Allergies Allergies/Adverse Reactions: Allergies Allergy/AdvReac Type Severity Reaction Status Date / Time Penicillins Allergy Intermediate Verified 01/26/18 16:42 - Home Medications Home Medications: Ambulatory Orders Carvedilol [Coreg] 25 mg PO BID #60 tablet 10/01/16 Calcium Acetate 670 mg PO TID 05/05/17 Valsartan [Diovan] 160 mg PO DAILY 05/05/17 Atorvastatin Calcium 20 mg PO HS 07/30/17 Furosemide [Lasix -] 40 mg PO DAILY 07/30/17 Sevelamer Carbonate [Renvela -] 800 mg PO TID 07/30/17 Pantoprazole Sodium [Protonix -] 40 mg PO BID #60 tablet.ec 08/03/17 Family Disease History - Family Disease History Family Disease History: Diabetes: Brother (CVA), Heart Disease: Father Review of Systems - Review of Systems Constitutional: reports: No Symptoms Eyes: reports: No Symptoms HENT: reports: No Symptoms Neck: reports: No Symptoms Cardiovascular: reports: No Symptoms Respiratory: reports: No Symptoms Gastrointestinal: reports: Melena, Rectal Bleeding Genitourinary: reports: No Symptoms Musculoskeletal: reports: No Symptoms Integumentary: reports: No Symptoms Neurological: reports: No Symptoms Endocrine: reports: No Symptoms Hematology/Lymphatic: reports: No Symptoms Psychiatric: reports: No Symptoms Physical Exam Vital Signs: Vital Signs Temperature 97.1 F L 01/26/18 16:34 Pulse Rate 80 01/26/18 16:34 Respiratory Rate 17 01/26/18 16:34 Blood Pressure 128/72 01/26/18 16:34 O2 Sat by Pulse Oximetry (%) 100 01/26/18 16:34 Constitutional: Yes: Calm, Pallor Eyes: Yes: Conjunctiva Clear Cardiovascular: Yes: S1, S2 Respiratory: Yes: CTA Bilaterally Gastrointestinal: Yes: Soft Renal/: Yes: WNL Musculoskeletal: Yes: WNL Extremities: Yes: WNL Edema: Yes Edema: LLE: Trace, RLE: Trace Neurological: Yes: Oriented Psychiatric: Yes: Oriented Labs: CBC, BMP 01/26/18 16:43 Laboratory Tests 01/26/18 01/26/18 16:43 16:43 WBC 4.3 D Hgb 6.3 L* Plt Count 107 L PT with INR Pending Laboratory Tests 01/26/18 16:43 Sodium 134 L Potassium 5.3 H D Chloride 95 L Carbon Dioxide 21 D Anion Gap 18 H BUN > 150 H* D Creatinine 13.3 H* D Problem List - Problems (1) Anemia Code(s): D64.9 - ANEMIA, UNSPECIFIED (2) Diabetes Code(s): E11.9 - TYPE 2 DIABETES MELLITUS WITHOUT COMPLICATIONS Qualifiers: (3) ESRD (end stage renal disease) Code(s): N18.6 - END STAGE RENAL DISEASE Assessment/Plan Impression 1. ESRD 2. DM 3. diabetic nephropathy 4. HTN 5. obesity 6. anemia 7. iron deficiency 8. CHF 9. anemia 10. hyperkalemia 11. liver mass 12. GI bleed Plan - check cbc and bmp - transfuse one unit PRBC now - will arrange for HD today, spoke to HD team - transfuse second unit during HD - GI eval - admit to monitored unit - trend hg - last hd as outpt was about 12.8 on 01/14 - pt is not compliant with HD treatments Dr Quezada
[2018-01-26 17:37] LABS: ALBUMIN 2.8 g/dl (3.4-5.0); ANION GAP 18 (8-16); BILIRUBIN,TOTAL 0.4 mg/dL (0.2-1.0); CHLORIDE 95 mmol/L (98-107); CO2 21 mmol/L (21-32); GLUCOSE,RANDOM 96 mg/dL (74-106); POTASSIUM 5.3 mmol/L (3.5-5.1); SGOT/AST 78 U/L (15-37); SGPT/ALT 80 U/L (12-78); SODIUM 134 mmol/L (136-145); TOT PROT 5.9 g/dl (6.4-8.2)
[2018-01-26 17:42] LABS: ALK PHOS 396 U/L (45-117)
[2018-01-26 17:44] LABS: LIPASE 944 U/L (73-393)
[2018-01-26 17:46] LABS: BLOOD UREA NITROGEN > 150 mg/dL (7-18); CALCIUM 6.6 mg/dL (8.5-10.1); CREATININE 13.3 mg/dL (0.7-1.3)
[2018-01-26] MEDS ORDERED: EPOETIN ALFA 2,000 UNIT/1 ML VIAL IVPUSH ONE (18:09)
--- NOTE | 2018-01-26 19:07 | PN ---
Teaching Attending Note Name of Resident: Beba Ururtia ATTENDING PHYSICIAN STATEMENT I saw and evaluated the patient. I reviewed the resident's note and discussed the case with the resident. I agree with the resident's findings and plan as documented. SUBJECTIVE: 52M with pmhx. of DM, CKD (on HD T//), CHF, Anemia with HgB of 9, who presented from HD with dizziness, Notes he has felt weak, so he missed his last 2 HD appointments. As per renal pt. is poorly compliant with HD. Notes several days of dark stool without surya red blood. Notes his last meal was this am, which was toast. No chest pain, pressure or shortness of breath. No N, V,.No hematouria or hematemesis. OF NOTE: Pt. Stated he did not want a [facility] physician because he recieved a bill in the mail for previous visits. I stated that only [facility] is covering the service admissions and we are the only physicians on tonight. I told he him had every right to refuse care. He stated that he WANTED to be cared for by [facility] and at this time he is ACCEPTING all treatment, which is based on the standard of care for a GI BLEED. OBJECTIVE: Physical: VS: Vital Signs Period Temp Pulse Resp BP Sys/Hayden Pulse Ox Last 24 Hr 97.1 F 80 17 128/72 100 GEN: NAD, Resting in bed, AA0X3 HEENT: NCAT, PERRL, Throat without erythema or exudates CARD: RRR S1, S2 RESP: CTAB ABD: BSx4, NTD to palpation EXT: - C/C/E RECTAL: REFUSED CBCD WBC 4.3 K/mm3 (4.0-10.0) D 01/26/18 16:43 RBC 1.65 M/mm3 (4.00-5.60) L D 01/26/18 16:43 Hgb 6.3 GM/dL (11.7-16.9) L* 01/26/18 16:43 Hct 18.0 % (35.4-49) L 01/26/18 16:43 MCV 109.5 fl (80-96) H 01/26/18 16:43 MCHC 34.9 g/dl (32.0-35.9) 01/26/18 16:43 RDW 15.9 % (11.9-15.9) D 01/26/18 16:43 Plt Count 107 K/MM3 (134-434) L 01/26/18 16:43 MPV 10.2 fl (7.5-11.1) D 01/26/18 16:43 CMP Sodium 134 mmol/L (136-145) L 01/26/18 16:43 Potassium 5.3 mmol/L (3.5-5.1) H D 01/26/18 16:43 Chloride 95 mmol/L (98-107) L 01/26/18 16:43 Carbon Dioxide 21 mmol/L (21-32) D 01/26/18 16:43 Anion Gap 18 (8-16) H 01/26/18 16:43 BUN > 150 mg/dL (7-18) H* D 01/26/18 16:43 Creatinine 13.3 mg/dL (0.7-1.3) H* D 01/26/18 16:43 Creat Clearance w eGFR 3.99 (>60) 01/26/18 16:43 Random Glucose 96 mg/dL (74-106) D 01/26/18 16:43 Calcium 6.6 mg/dL (8.5-10.1) L* 01/26/18 16:43 Total Bilirubin 0.4 mg/dL (0.2-1.0) D 01/26/18 16:43 AST 78 U/L (15-37) H D 01/26/18 16:43 ALT 80 U/L (12-78) H D 01/26/18 16:43 Alkaline Phosphatase 396 U/L (45-117) H D 01/26/18 16:43 Total Protein 5.9 g/dl (6.4-8.2) L 01/26/18 16:43 Albumin 2.8 g/dl (3.4-5.0) L 01/26/18 16:43 CARDIAC ENZYMES Troponin I 0.03 ng/ml (0.00-0.05) D 01/26/18 18:11 Ambulatory Orders Carvedilol [Coreg] 25 mg PO BID #60 tablet 10/01/16 Calcium Acetate 670 mg PO TID 05/05/17 Valsartan [Diovan] 160 mg PO DAILY 05/05/17 Furosemide [Lasix -] 40 mg PO DAILY 07/30/17 Atorvastatin Calcium 20 mg PO HS 01/27/18 Sevelamer Carbonate [Renvela] 1,600 mg PO TID 01/27/18 EKG: NSR ASSESSMENT AND PLAN: 52M with pmhx. of DM, CKD (on HD T//S), CHF, Anemia with HgB of 9, who presented from HD with dizziness, being admitted for Upper GI Bleed 1.) Upper GI Bleed - 2 Large Bore IVs - NPO - Protonix IV BID - Transfuse keep HgB>7 - Repeat CBC q 8 - Type & Screen done - Coags 2.) ESRD on HD - TO have HD today and to recieve 2nd unit of blood with HD - Nephro on consult 3.) Hypocalcemia - CC 7.86, Asyx - If prolonged Qt or sxs replete 3.) HYperkalemia - Monitor - HD 4.) Anemia Macrocytic - S/P Epo - B12/folate - Keep Hgb >7 9.) Congestive Heart Failure Chronic Systolic - Monitor for fluid overload - ON HD 10.) Increased Lipase, LFTS, inc. AFP - Pt. does NOT have any abdominal pain - Wanted outpt. eval. of liver mass 11.) Dvt Ppx - Scds Place in ICU CC Time: 40 minjoe
--- NOTE | 2018-01-26 20:09 | CONSULT ---
Consultation: REQUESTING PROVIDER: Dr. Tripathi ICU RESIDENT CONSULT NOTE: We have been asked to medically evaluate this patient for GI BLEED. HISTORY OF PRESENT ILLNESS: Patient is a 52 year old male with a PMHx of ESRD on HD (,), HTN, DM ( diet controlled), Diastolic Heart Failure, Anemia of chronic disease, History of GI bleeds (last one 07/2017) who was BIBEMS from the dialysis center due to a low hemoglobin reading of 5.5. Patient reports going to dialysis today and felt more fatigued and pale than usual, which prompted the tech to check his hemoglobin. According to records, his last hemoglobin was 12.8 on 01/14/2018. Patient is noncompliant and inconsistent with hemodialysis with the last full session 01/21/18. In the ED patient was found to have a hemoglobin of 6.3 with a positive Stool guaic. Patient states he's had diffuse abdominal pain and tenderness since last (01/21/18) associated with dark loose stool. Patient states he's had this before and he was found to have an Ulcer. Patient denies NSAID use. Patient reports last endoscopy and colonoscopy was done in house, however patient only had endoscopy done (07/31/17) with findings a duodenal ulcer. No records of a colonoscopy and patient is unable to recall when his last colonoscopy was. Patient otherwise denies hematemesis, nasuea, vomiting, constipation, fever, chills, headache, shortness of breath, chest pain , palpitations, acute vision changes. PMH: ESRD on HD (,), HTN, DM (diet controlled), Diastolic heart failure, Anemia of chronic disease, History of GI bleeds (last one 07/2017) PSH: Right retinal detachment, right eye blindness, cataract surgery Social History: Smoking:denies Alcohol:denies Drugs: denies Family History: mother with DM Allergies:Penicillins Allergy (Intermediate, Verified 01/26/18 16:42) REVIEW OF SYSTEMS: CONSTITUTIONAL: generalized weakness, malaise Absent: fever, chills, diaphoresis, loss of appetite, weight change HEENT: Absent: rhinorrhea, nasal congestion, throat pain, throat swelling, difficulty swallowing, mouth swelling, ear pain, eye pain, visual changes CARDIOVASCULAR: Absent: chest pain, syncope, palpitations, irregular heart rate, lightheadedness , peripheral edema RESPIRATORY: Absent: cough, shortness of breath, dyspnea with exertion, orthopnea, wheezing, stridor, hemoptysis GASTROINTESTINAL:abdominal pain, melena Absent: abdominal distension, nausea, vomiting, diarrhea, constipation, hematochezia GENITOURINARY: Absent: dysuria, frequency, urgency, hesitancy, hematuria, flank pain, genital pain MUSCULOSKELETAL: Absent: myalgia, arthralgia, joint swelling, back pain, neck pain SKIN: Absent: rash, itching, pallor HEMATOLOGIC/IMMUNOLOGIC: Absent: easy bleeding, easy bruising, lymphadenopathy, frequent infections ENDOCRINE: Absent: unexplained weight gain, unexplained weight loss, heat intolerance, cold intolerance NEUROLOGIC: Absent: headache, focal weakness or paresthesias, dizziness, unsteady gait, seizure, mental status changes, bladder or bowel incontinence PSYCHIATRIC: Absent: anxiety, depression, suicidal or homicidal ideation, hallucinations. PHYSICAL EXAMINATION Vital Signs - 24 hr 01/26/18 01/26/18 16:34 20:01 Temperature 97.1 F L Pulse Rate 80 Pulse Rate [ 82 Left] Respiratory 17 16 Rate Blood Pressure 128/72 Blood Pressure 120/84 [Right Arm] O2 Sat by Pulse 100 100 Oximetry (%) GENERAL: Awake, alert, and fully oriented, in no acute distress. HEAD: Normal with no signs of trauma. EYES: Pupils equal, round and reactive to light, extraocular movements intact, sclera anicteric, conjunctiva clear. EARS, NOSE, THROAT: Oropharynx clear without exudates. Moist mucous membranes. NECK: Normal range of motion, supple without lymphadenopathy, JVD, or masses. LUNGS: Breath sounds equal, clear to auscultation bilaterally. No wheezes, and no crackles. No accessory muscle use. HEART: Regular rate and rhythm, normal S1 and S2 without murmur, rub or gallop. CHEST: Permacath site on right chest ABDOMEN: Soft, mild tenderness upon palpation of mid epigastric region, not distended, hyperactive bowel sounds, no guarding, no rebound. RECTAL: Refused rectal exam MUSCULOSKELETAL: No CVA tenderness. UPPER EXTREMITIES: 2+ pulses, warm, well-perfused. No cyanosis. No clubbing. Cap refill <2 seconds. No peripheral edema. LOWER EXTREMITIES: No peripheral edema NEUROLOGICAL: Cranial nerves II-XII intact. Normal speech. Motor strength 5/5 bilaterally with decreased sensations in lower extremities bilaterally. No facial asymmetry PSYCHIATRIC: Cooperative. Good eye contact. Appropriate mood and affect. SKIN: Warm, dry, normal turgor, no rashes or lesions noted. Laboratory Results - last 24 hr CBC, BMP 01/26/18 16:43 01/26/18 16:43 Laboratory Tests 01/26/18 01/26/18 01/26/18 16:43 16:43 17:38 PT with INR 10.90 INR 0.96 AST 78 H D ALT 80 H D Alkaline Phosphatase 396 H D Lipase 944 H Stool Occult Blood Positive Active Medications Generic Name Dose Route Start Last Admin Trade Name Freq PRN Reason Stop Dose Admin Chlorhexidine Gluconate 1 applic 01/26/18 22:00 Hibiclens For Decolonization - TP HS KRISTEN Epoetin Dylon 8,000 unit 01/26/18 18:09 Epogen - IVPUSH 01/26/18 18:10 ONCE ONE Sodium Chloride 250 mls @ 3,000 mls/hr 01/26/18 18:09 Normal Saline - IV 01/27/18 18:09 PRN PRN Hypotension during Dialysis Mupirocin 1 applic 01/26/18 22:00 Bactroban Ointment (For Decolonization) - NS 01/31/18 21:59 BID KRISTEN Pantoprazole Sodium 40 mg 01/26/18 22:00 Protonix Iv IVPUSH BID KRISTEN ASSESSMENT/PLAN: Patient is a 52 year old male who was BIBEMS from the dialysis center after he was found to have a hemoglobin of 5.5. In the ED patient was found to have possible GI bleed and admitted to ICU for further monitoring and management. Hematology/Oncology #Severe Anemia -Likely secondary to GI bleed -Patient had hemoglobin of 5.5 in dialysis center and 6.3 in the ED. -Patient was transfused 1 pack of PRBC at the dialysis center and is currently being transfused with 2 PRBC's ordered -Repeat CBC at midnight -GI consult placed Gastroenterology #GI Bleed -Likely Upper GI bleed -Medicine team spoke to GI attending, Dr. Denis and reports that patient is not having overt BRBPR and will need continuous monitoring in ICU until the morning -Will continue Protonix 40mg IVP BID -Spoke to patient on the importance of being NPO due to the GI bleed and possible procedure being performed in the morning, however, patient and patient' s family member at bedside are refusing. Patient's family member gave food to the patient despite physician recommendations. -Endoscopy/Colonoscopy to be done in the morning -Maintain large bore IVs -Maintain active type and Screen #History of Liver Mass -Incidental findings on previous admission with high AFP of almost 15K -Refused triple phase CT on previous admission with risks explained. Patient continues to refuse. -Will need to follow up as outpatient Cardiovascular #Diastolic Heart Failure Class II-III- Stable -Patient has no signs or symptoms of acute exacerbation -Last ECHO 09/29/16 showing normal LVF and no wall abnormalities #HTN-Stable and controlled -BP medications on hold due to GI bleed with possible hypotension if it worsens -Should re-evaluate in the morning. Nephrology #ESRD on HD -Patient is noncompliant with dialysis with last full session 01/21/18 -Case discussed with Dr. Quezada and patient is currently being dialyzed with UF of 1.5 -Repeat CMP in the morning #HyperKalemia -Likely secondary to ESRD. -Currently being dialyzed -Repeat Labs after dialysis Endocrine #DM-Controlled -Patient is currently on diet control at home -BGM's and ISS Q4H F/E/N -On no fluids as patient is currently in Hemodialysis -HyperKalemia. Currently being dialyzed. Repeat after dialysis -NPO Prophylaxis -SCD's for DVT. Heparin contraindicated due to possible UGIB -Protonix 40mg IVP BID for GI Disposition -Full code -Continue ICU monitoring as patient is currently being dialyzed and transfused with blood products. Possible endoscopy/colonoscopy in the morning Becca Mcarthur MD-PGY2 <Becca Mcarthur - Last Filed: 01/26/18 23:03> Consultation: REQUESTING PROVIDER: CONSULT REQUEST: We have been asked to medically evaluate this patient for ( specify). HISTORY OF PRESENT ILLNESS: REVIEW OF SYSTEMS: CONSTITUTIONAL: Absent: fever, chills, diaphoresis, generalized weakness, malaise, loss of appetite, weight change HEENT: Absent: rhinorrhea, nasal congestion, throat pain, throat swelling, difficulty swallowing, mouth swelling, ear pain, eye pain, visual changes CARDIOVASCULAR: Absent: chest pain, syncope, palpitations, irregular heart rate, lightheadedness , peripheral edema RESPIRATORY: Absent: cough, shortness of breath, dyspnea with exertion, orthopnea, wheezing, stridor, hemoptysis GASTROINTESTINAL: Absent: abdominal pain, abdominal distension, nausea, vomiting, diarrhea, constipation, melena, hematochezia GENITOURINARY: Absent: dysuria, frequency, urgency, hesitancy, hematuria, flank pain, genital pain MUSCULOSKELETAL: Absent: myalgia, arthralgia, joint swelling, back pain, neck pain SKIN: Absent: rash, itching, pallor HEMATOLOGIC/IMMUNOLOGIC: Absent: easy bleeding, easy bruising, lymphadenopathy, frequent infections ENDOCRINE: Absent: unexplained weight gain, unexplained weight loss, heat intolerance, cold intolerance NEUROLOGIC: Absent: headache, focal weakness or paresthesias, dizziness, unsteady gait, seizure, mental status changes, bladder or bowel incontinence PSYCHIATRIC: Absent: anxiety, depression, suicidal or homicidal ideation, hallucinations. PHYSICAL EXAMINATION Vital Signs - 24 hr 01/26/18 01/26/18 01/26/18 16:34 18:43 20:01 Temperature 97.1 F L Pulse Rate 80 Pulse Rate [ 82 Left] Respiratory 16 Rate Blood Pressure 128/72 Blood Pressure 120/84 [Right Arm] O2 Sat by Pulse 100 100 100 Oximetry (%) 01/26/18 01/26/18 01/26/18 20:10 20:15 20:45 Temperature 97.5 F L Pulse Rate 78 78 77 Pulse Rate [ Left] Respiratory 18 18 18 Rate Blood Pressure 120/82 123/83 105/75 Blood Pressure [Right Arm] O2 Sat by Pulse Oximetry (%) 01/26/18 01/26/18 01/26/18 20:55 21:00 21:15 Temperature 97.5 F L 97.5 F L Pulse Rate 78 78 70 Pulse Rate [ Left] Respiratory 16 18 18 Rate Blood Pressure 123/83 120/82 110/72 Blood Pressure [Right Arm] O2 Sat by Pulse Oximetry (%) 01/26/18 01/26/18 01/26/18 21:45 22:00 22:15 Temperature Pulse Rate 84 84 86 Pulse Rate [ Left] Respiratory 18 15 18 Rate Blood Pressure 143/83 127/98 127/114 Blood Pressure [Right Arm] O2 Sat by Pulse Oximetry (%) 01/26/18 01/26/18 01/26/18 22:45 22:52 23:00 Temperature Pulse Rate 89 88 87 Pulse Rate [ Left] Respiratory 18 18 16 Rate Blood Pressure 128/100 143/98 142/76 Blood Pressure [Right Arm] O2 Sat by Pulse Oximetry (%) 01/27/18 01/27/18 01/27/18 00:00 00:17 02:17 Temperature 97.3 F L Pulse Rate 86 86 84 Pulse Rate [ Left] Respiratory 15 15 16 Rate Blood Pressure 127/84 127/84 148/76 Blood Pressure [Right Arm] O2 Sat by Pulse Oximetry (%) 01/27/18 01/27/18 01/27/18 04:00 06:00 08:00 Temperature 97.3 F L Pulse Rate 84 79 76 Pulse Rate [ Left] Respiratory 16 15 19 Rate Blood Pressure 148/75 157/80 155/82 Blood Pressure [Right Arm] O2 Sat by Pulse Oximetry (%) 01/27/18 01/27/18 10:00 10:29 Temperature Pulse Rate 77 Pulse Rate [ Left] Respiratory 18 18 Rate Blood Pressure 160/81 Blood Pressure [Right Arm] O2 Sat by Pulse 100 Oximetry (%) GENERAL: Awake, alert, and fully oriented, in no acute distress. HEAD: Normal with no signs of trauma. EYES: Pupils equal, round and reactive to light, extraocular movements intact, sclera anicteric, conjunctiva clear. No lid lag. EARS, NOSE, THROAT: Ears normal, nares patent, oropharynx clear without exudates. Moist mucous membranes. NECK: Normal range of motion, supple without lymphadenopathy, JVD, or masses. LUNGS: Breath sounds equal, clear to auscultation bilaterally. No wheezes, and no crackles. No accessory muscle use. HEART: Regular rate and rhythm, normal S1 and S2 without murmur, rub or gallop. ABDOMEN: Soft, nontender, not distended, normoactive bowel sounds, no guarding, no rebound, no masses. No hepatomegaly or splenomegaly. MUSCULOSKELETAL: Normal range of motion at all joints. No bony deformities or tenderness. No CVA tenderness. UPPER EXTREMITIES: 2+ pulses, warm, well-perfused. No cyanosis. No clubbing. Cap refill <2 seconds. No peripheral edema. LOWER EXTREMITIES: 2+ pulses, warm, well-perfused. No calf tenderness. No peripheral edema. NEUROLOGICAL: Cranial nerves II-XII intact. Normal speech. Normal gait. PSYCHIATRIC: Cooperative. Good eye contact. Appropriate mood and affect. SKIN: Warm, dry, normal turgor, no rashes or lesions noted. Laboratory Results - last 24 hr 01/26/18 01/26/18 01/26/18 16:43 16:43 16:43 WBC 4.3 D RBC 1.65 L D Hgb 6.3 L* Hct 18.0 L MCV 109.5 H MCH 38.2 H D MCHC 34.9 RDW 15.9 D Plt Count 107 L MPV 10.2 D Neutrophils % 64.5 Lymphocytes % 22.4 D Monocytes % 11.8 H Eosinophils % 1.0 D Basophils % 0.3 PT with INR INR Sodium 134 L Potassium 5.3 H D Chloride 95 L Carbon Dioxide 21 D Anion Gap 18 H BUN > 150 H* D Creatinine 13.3 H* D Creat Clearance w eGFR 3.99 POC Glucometer Random Glucose 96 D Calcium 6.6 L* Total Bilirubin 0.4 D AST 78 H D ALT 80 H D Alkaline Phosphatase 396 H D Troponin I Total Protein 5.9 L Albumin 2.8 L Lipase 944 H Stool Occult Blood Hep A IgM Ab Confirm Hepatitis A Ab Total Hep Bs Antigen Hep Bs Ag Confirmation Hep Bs Antibody Hep B Core Total Ab Hep C Ab Diagnostic HCV RNA PCR log endoscopy support specialist/ml HCV RNA (PCR) IUs/ml Liver Fibrosis Interp Blood Type O POSITIVE Antibody Screen Negative Crossmatch See Detail 01/26/18 01/26/18 01/26/18 16:43 17:38 18:11 WBC RBC Hgb Hct MCV MCH MCHC RDW Plt Count MPV Neutrophils % Lymphocytes % Monocytes % Eosinophils % Basophils % PT with INR 10.90 INR 0.96 Sodium Potassium Chloride Carbon Dioxide Anion Gap BUN Creatinine Creat Clearance w eGFR POC Glucometer Random Glucose Calcium Total Bilirubin AST ALT Alkaline Phosphatase Troponin I 0.03 D Total Protein Albumin Lipase Stool Occult Blood Positive Hep A IgM Ab Confirm Hepatitis A Ab Total Hep Bs Antigen Hep Bs Ag Confirmation Hep Bs Antibody Hep B Core Total Ab Hep C Ab Diagnostic HCV RNA PCR log endoscopy support specialist/ml HCV RNA (PCR) IUs/ml Liver Fibrosis Interp Blood Type Antibody Screen Crossmatch 01/26/18 01/26/18 01/26/18 22:45 22:45 22:45 WBC 3.7 L RBC 2.46 L D Hgb 8.8 L D Hct 24.9 L D MCV 101.2 H D MCH 35.6 H MCHC 35.2 RDW 20.6 H D Plt Count 111 L MPV 10.6 Neutrophils % Lymphocytes % Monocytes % Eosinophils % Basophils % PT with INR INR Sodium 140 Potassium 3.9 D Chloride 100 Carbon Dioxide 25 Anion Gap 15 BUN 70 H D Creatinine 6.4 H D Creat Clearance w eGFR 9.29 POC Glucometer Random Glucose 172 H D Calcium 7.1 L Total Bilirubin 0.6 D AST 81 H ALT 87 H Alkaline Phosphatase 425 H Troponin I Total Protein 6.5 Albumin 3.0 L Lipase Stool Occult Blood Hep A IgM Ab Confirm Cancelled Hepatitis A Ab Total Cancelled Hep Bs Antigen Cancelled Hep Bs Ag Confirmation Cancelled Hep Bs Antibody Cancelled Hep B Core Total Ab Cancelled Hep C Ab Diagnostic Cancelled HCV RNA PCR log endoscopy support specialist/ml Cancelled HCV RNA (PCR) IUs/ml Cancelled Liver Fibrosis Interp Cancelled Blood Type Antibody Screen Crossmatch 01/27/18 01/27/18 06:05 09:41 WBC 5.3 D RBC 2.41 L Hgb 8.6 L Hct 24.3 L MCV 100.9 H MCH 35.7 H MCHC 35.4 RDW 21.8 H Plt Count 111 L MPV 9.9 Neutrophils % 74.6 Lymphocytes % 10.9 D Monocytes % 13.7 H Eosinophils % 0.6 Basophils % 0.2 PT with INR INR Sodium Potassium Chloride Carbon Dioxide Anion Gap BUN Creatinine Creat Clearance w eGFR POC Glucometer 109.37058 Random Glucose Calcium Total Bilirubin AST ALT Alkaline Phosphatase Troponin I Total Protein Albumin Lipase Stool Occult Blood Hep A IgM Ab Confirm Hepatitis A Ab Total Hep Bs Antigen Hep Bs Ag Confirmation Hep Bs Antibody Hep B Core Total Ab Hep C Ab Diagnostic HCV RNA PCR log endoscopy support specialist/ml HCV RNA (PCR) IUs/ml Liver Fibrosis Interp Blood Type Antibody Screen Crossmatch Active Medications Generic Name Dose Route Start Last Admin Trade Name Freq PRN Reason Stop Dose Admin Chlorhexidine Gluconate 1 applic 01/26/18 22:00 01/26/18 21:42 Hibiclens For Decolonization - TP 1 applic HS KRISTEN Administration Sodium Chloride 250 mls @ 3,000 mls/hr 01/26/18 20:45 Normal Saline - IV 01/27/18 20:44 PRN PRN Hypotension during Dialysis Mupirocin 1 applic 01/26/18 22:00 01/27/18 10:18 Bactroban Ointment (For Decolonization) - NS 01/31/18 21:59 Not Given BID KRISTEN Pantoprazole Sodium 40 mg 01/26/18 22:00 01/26/18 21:41 Protonix Iv IVPUSH 40 mg BID KRISTEN Administration Sevelamer Carbonate 1,600 mg 01/27/18 14:00 Renvela - PO TID KRISTEN Valsartan 160 mg 01/27/18 10:15 01/27/18 10:17 Diovan - PO 160 mg DAILY KRISTEN Administration ASSESSMENT/PLAN: Dispo: We will continue to follow the patient. Thank you for this consultative opportunity. PULMONARY/CCM Pt seen and examined. Agree with assessment and plan. Croey Mahoney MD <Corey Mahoney MD - Last Filed: 01/27/18 12:21> Visit type - Emergency Visit Emergency Visit: Yes ED Registration Date: 01/26/18 Care time: The patient presented to the Emergency Department on the above date and was hospitalized for further evaluation of their emergent condition. - New Patient This patient is new to me today: Yes Date on this admission: 01/26/18 - Critical Care Critical Care patient: Yes Total Critical Care Time (in minutes): 46 Critical Care Statement: The care of this patient involved high complexity decision making to prevent further life threatening deterioration of the patient 's condition and/or to evaluate & treat vital organ system(s) failure or risk of failure. <Becca Mcarthur - Last Filed: 01/26/18 23:03>
[2018-01-26 20:41] VITALS: BMI 30.6
--- NOTE | 2018-01-26 20:42 | HP ---
CHIEF COMPLAINT: low h/h PCP: Dr. Quezada HISTORY OF PRESENT ILLNESS: 52 yr old man with CKD on HD(TRSA), HTN, DM, chronic anemia, hx of GI bleeds (), BIBEMS from dialysis(5 nidia) due to low h/h. He felt unlike himself," fatigued and funny." He asked the tech to check his h/h which was 5.5, which is lower than his previous hg on january 14 which was 12.8. upon introduction, patient initially refused to be seen by [facility] Hospitalist group due to bills he had received on previous admissions to the [facility] last year. Patient was offered a choice to decline admission under hospitalist service and informed that at this time the majority of attendings were covered by [facility] and patient was welcome to contact another physician for admission not covered by [facility]. He said he did not know any, and he would "have to do what he had to do." Discussed with case assistant in ED, who also offered patient option to refuse [facility] care but he will not be able to be admitted to hospital without an admitting physician. Patient requested this conversation to be documented. He accepted to be seen by [facility] Hospitalist group this evening and will be seeking information from the bussiness office in the morning regarding billing. ER course was notable for: (1) h/h 6.3/18.0 (2) 1 unit of prbc's given in the ED Chart reviewed for pmhx history, ED note and nephrology note reviewed for additional information. PAST MEDICAL HISTORY: HTN, DM, CKD (on HD TRSA), CHF, anemia PAST SURGICAL HISTORY: Right retinal detachment, right eye blindness cataract surgery Social History: Smoking:denies Alcohol:denies Drugs: denies Family History: mother with DM Allergies Penicillins Allergy (Intermediate, Verified 01/26/18 16:42) HOME MEDICATIONS: Home Medications Medication Instructions Recorded Carvedilol [Coreg] 25 mg PO BID #60 tablet 10/01/16 Calcium Acetate 670 mg PO TID 05/05/17 Valsartan [Diovan] 160 mg PO DAILY 05/05/17 Atorvastatin Calcium 20 mg PO HS 07/30/17 Furosemide [Lasix -] 40 mg PO DAILY 07/30/17 Sevelamer Carbonate [Renvela -] 800 mg PO TID 07/30/17 Pantoprazole Sodium [Protonix -] 40 mg PO BID #60 tablet.ec 08/03/17 REVIEW OF SYSTEMS CONSTITUTIONAL: Absent: fever, chills, diaphoresis, generalized weakness, malaise, loss of appetite, weight change HEENT: Absent: rhinorrhea, nasal congestion, throat pain, throat swelling, difficulty swallowing, mouth swelling, ear pain, eye pain, visual changes CARDIOVASCULAR: Absent: chest pain, syncope, palpitations, irregular heart rate, lightheadedness , peripheral edema RESPIRATORY: Absent: cough, shortness of breath, dyspnea with exertion, orthopnea, wheezing, stridor, hemoptysis GASTROINTESTINAL: Present: dark stools Absent: abdominal pain, abdominal distension, nausea, vomiting, diarrhea, constipation, hematochezia PHYSICAL EXAMINATION Vital Signs - 24 hr 01/26/18 16:34 Temperature 97.1 F L Pulse Rate 80 Respiratory 17 Rate Blood Pressure 128/72 O2 Sat by Pulse 100 Oximetry (%) GENERAL: Awake, alert, and fully oriented, in no acute distress. EYES: right eye with conjuctival erythema, cloudy sclera, extraocular movements intact, sclera anicteric EARS, NOSE, THROAT: oropharynx clear without exudates. Moist mucous membranes. NECK: Normal range of motion, supple without lymphadenopathy, JVD, or masses. LUNGS: Breath sounds equal, clear to auscultation bilaterally HEART: Regular rate and rhythm, normal S1 and S2 ABDOMEN: Soft, not distended, normoactive bowel sounds MUSCULOSKELETAL: freely moving all joints UPPER EXTREMITIES: well-perfused. No cyanosis. No clubbing. No peripheral edema. LOWER EXTREMITIES: well-perfused. No peripheral edema. NEUROLOGICAL: Cranial nerves II-XII intact. Facial symmetry Normal speech. SKIN: Warm, dry, normal turgor, no rashes or lesions noted, normal capillary refill. Declined rectal exam Laboratory Results - last 24 hr 01/26/18 01/26/18 01/26/18 16:43 16:43 16:43 WBC 4.3 D RBC 1.65 L D Hgb 6.3 L* Hct 18.0 L MCV 109.5 H MCH 38.2 H D MCHC 34.9 RDW 15.9 D Plt Count 107 L MPV 10.2 D Neutrophils % 64.5 Lymphocytes % 22.4 D Monocytes % 11.8 H Eosinophils % 1.0 D Basophils % 0.3 PT with INR INR Sodium 134 L Potassium 5.3 H D Chloride 95 L Carbon Dioxide 21 D Anion Gap 18 H BUN > 150 H* D Creatinine 13.3 H* D Creat Clearance w eGFR 3.99 Random Glucose 96 D Calcium 6.6 L* Total Bilirubin 0.4 D AST 78 H D ALT 80 H D Alkaline Phosphatase 396 H D Troponin I Total Protein 5.9 L Albumin 2.8 L Lipase 944 H Stool Occult Blood Blood Type O POSITIVE Antibody Screen Negative Crossmatch See Detail 01/26/18 01/26/18 01/26/18 16:43 17:38 18:11 WBC RBC Hgb Hct MCV MCH MCHC RDW Plt Count MPV Neutrophils % Lymphocytes % Monocytes % Eosinophils % Basophils % PT with INR 10.90 INR 0.96 Sodium Potassium Chloride Carbon Dioxide Anion Gap BUN Creatinine Creat Clearance w eGFR Random Glucose Calcium Total Bilirubin AST ALT Alkaline Phosphatase Troponin I 0.03 D Total Protein Albumin Lipase Stool Occult Blood Positive Blood Type Antibody Screen Crossmatch ASSESSMENT/PLAN: 52M w/ HTN, DM, ESRD (TRSA), CHF, chronic anemia who was BIBEMS from dialysis center due to low h/h. Pt is being admitted to ICU for UGI and HD. - previous endoscopy 07/2017 with 2 bleeding ulcers requiring jaelyn #Anemia likely due to UGI -Hb 5.5 in ED, FOBT (+) in ED -Pt to receive 2 units PRBC -repeat CBC at midnight, f/u CBC - protonix 40 ivpush - discussed with Dr. Denis, as pt is not having overt brbpr bleeding, will keep him NPO, ICU monitoring for further evaluation and possible endoscopy/ colonoscopy tomorrow morning #CKD on HD - to be dialysed as per nephro recommendations - Consult Dr. Quezada #previous hx of Liver mass -Abd U/S showing hepatic mass on previous admission, can be followed as outpatient -Unclear etiology #hx of Class II-III CHF - stable, no clinical s/s for exacerbation #DM -diet controlled - bgm's q4hr while NPO, recommended to patient and family member at bedside that patient needs to be NPO due to possible UGI and possible procedure in the AM. Patient said he only had toast in the AM and wanted to eat, family member said "his system needs food," explained to both that it is a risk for worsening the GI bleed and aspiration risk for procedure and that patient would receive IV dextrose if there was a drop in glucose, however family member said he would be giving the patient something to eat despite repeated physician recommendations to stay NPO. #HTN -BP stable at this time -reevaluate in am to restart home meds #FEN -not on fluids. In HD -DM/low Na/renal diet when able to tolerate PO, NPO until further GI evaluation/ possible procedure in the AM #Dispo -admit to ICU for UGI, HD #PPx -DVT: medical ac contraindicated due to possible bleeding, scd's -GI: Protonix Visit type - Emergency Visit Emergency Visit: Yes ED Registration Date: 01/26/18 Care time: The patient presented to the Emergency Department on the above date and was hospitalized for further evaluation of their emergent condition. - New Patient This patient is new to me today: Yes Date on this admission: 01/26/18 - Critical Care Critical Care patient: Yes Total Critical Care Time (in minutes): 45 Critical Care Statement: The care of this patient involved high complexity decision making to prevent further life threatening deterioration of the patient 's condition and/or to evaluate & treat vital organ system(s) failure or risk of failure. Hospitalist Screening - Colonoscopy Questionnaire Colonoscopy Questionnaire: Colonoscopy Questionnaire - Patient: 50 - 75 years old and never had a screening colonoscopy: No History of colon or rectal polyps, or CA: No History of IBD, Crohn's disease or UC: No History of abdominal radiation therapy as a child: No - Relative: 1 with colon or rectal CA, or polyps at age 60 or younger: No Colon or rectal CA diagnosed at age 45 or younger: No Multiple relatives with colon or rectal CA: No - Outcome: Screening Result: Negative Screen
[2018-01-26] MEDS ORDERED: SODIUM CHLORIDE 250 ML IV PRN (20:45)
[2018-01-26] MEDS ORDERED: EPOETIN ALFA 6,000 UNIT, EPOETIN ALFA 2,000 UNIT IVPUSH ONE (21:00)
[2018-01-26] MEDS ORDERED: MIDAZOLAM HCL 2 MG/2 ML SINGLE DOSE VIAL IVPUSH ONE (21:03)
[2018-01-26] MEDS: PANTOPRAZOLE SODIUM 40 MG VIAL IVPUSH SCH (21:41)
[2018-01-26] MEDS: MUPIROCIN 2% TOPICAL OINTMENT FOR DECOLONIZATION NS SCH (21:42)
[2018-01-26] MEDS ORDERED: CHLORHEXIDINE GLUCONATE 4% CLEANSER FOR DECOLONIZATION TP SCH (22:00)
[2018-01-26 23:00] LABS: HEMATOCRIT 24.9 % (35.4-49); HEMOGLOBIN 8.8 GM/dL (11.7-16.9); MCH 35.6 pg (25.7-33.7); MCHC 35.2 g/dl (32.0-35.9); MEAN CELL VOLUME 101.2 fl (80-96); MEAN PLT VOLUME 10.6 fl (7.5-11.1); PLATELET COUNT 111 K/MM3 (134-434); RBC 2.46 M/mm3 (4.00-5.60); RDW 20.6 % (11.9-15.9); WHITE BLOOD COUNT 3.7 K/mm3 (4.0-10.0)
[2018-01-26 23:34] LABS: ANION GAP 15 (8-16); BLOOD UREA NITROGEN 70 mg/dL (7-18); CALCIUM 7.1 mg/dL (8.5-10.1); CHLORIDE 100 mmol/L (98-107); CO2 25 mmol/L (21-32); CREATININE 6.4 mg/dL (0.7-1.3); GLUCOSE,RANDOM 172 mg/dL (74-106); POTASSIUM 3.9 mmol/L (3.5-5.1); SGOT/AST 81 U/L (15-37); SGPT/ALT 87 U/L (12-78); SODIUM 140 mmol/L (136-145)
[2018-01-26 23:36] LABS: ALK PHOS 425 U/L (45-117); BILIRUBIN,TOTAL 0.6 mg/dL (0.2-1.0); TOT PROT 6.5 g/dl (6.4-8.2)
[2018-01-27] MEDS ORDERED: MELATONIN 5 MG TABLETS PO ONE (00:55)
[2018-01-27 06:35] LABS: BASO % 0.2 % (0-2.0); EOS % 0.6 % (0-4.5); HEMATOCRIT 24.3 % (35.4-49); HEMOGLOBIN 8.6 GM/dL (11.7-16.9); LYMPH % 10.9 % (8-40); MCH 35.7 pg (25.7-33.7); MCHC 35.4 g/dl (32.0-35.9); MEAN CELL VOLUME 100.9 fl (80-96); MEAN PLT VOLUME 9.9 fl (7.5-11.1); MONO % 13.7 % (3.8-10.2); NEUT % 74.6 % (42.8-82.8); PLATELET COUNT 111 K/MM3 (134-434); RBC 2.41 M/mm3 (4.00-5.60); RDW 21.8 % (11.9-15.9); WHITE BLOOD COUNT 5.3 K/mm3 (4.0-10.0)
[2018-01-27 06:49] LABS: ADD RBC MORPHOLOGY YES
--- NOTE | 2018-01-27 09:37 | PN ---
Physical Exam: SUBJECTIVE: Patient seen and examined Pt received 2 units of PRBCs and HD (2kg of fluid removed) yesterday. This am, pt denies headache, chest pain, SOB, n/v/d/c, hematemesis, melena, hematochezia , abdominal pain, and dysuria. OBJECTIVE: Vital Signs Period Temp Pulse Resp BP Sys/Hayden Pulse Ox Last 24 Hr 97.1 F-97.5 F 70-89 15-18 105-157/72-114 100-100 GENERAL: middle aged male, sitting in chair, in NAD, AAOx3 HEENT: pallor LUNGS: CTAB, no wheezing or rhonchi HEART: Regular rate and rhythm, S1, S2 without murmur, rub or gallop. ABDOMEN: soft, NT, ND, normoactive BS EXTREMITIES: 2+ pulses, warm, well-perfused, no edema. NEUROLOGICAL: Cranial nerves II through XII grossly intact. Normal speech, gait not observed. Laboratory Results - last 24 hr 01/26/18 01/26/18 01/26/18 16:43 16:43 16:43 WBC 4.3 D RBC 1.65 L D Hgb 6.3 L* Hct 18.0 L MCV 109.5 H MCH 38.2 H D MCHC 34.9 RDW 15.9 D Plt Count 107 L MPV 10.2 D Neutrophils % 64.5 Lymphocytes % 22.4 D Monocytes % 11.8 H Eosinophils % 1.0 D Basophils % 0.3 PT with INR INR Sodium 134 L Potassium 5.3 H D Chloride 95 L Carbon Dioxide 21 D Anion Gap 18 H BUN > 150 H* D Creatinine 13.3 H* D Creat Clearance w eGFR 3.99 Random Glucose 96 D Calcium 6.6 L* Total Bilirubin 0.4 D AST 78 H D ALT 80 H D Alkaline Phosphatase 396 H D Troponin I Total Protein 5.9 L Albumin 2.8 L Lipase 944 H Stool Occult Blood Blood Type O POSITIVE Antibody Screen Negative Crossmatch See Detail 01/26/18 01/26/18 01/26/18 16:43 17:38 18:11 WBC RBC Hgb Hct MCV MCH MCHC RDW Plt Count MPV Neutrophils % Lymphocytes % Monocytes % Eosinophils % Basophils % PT with INR 10.90 INR 0.96 Sodium Potassium Chloride Carbon Dioxide Anion Gap BUN Creatinine Creat Clearance w eGFR Random Glucose Calcium Total Bilirubin AST ALT Alkaline Phosphatase Troponin I 0.03 D Total Protein Albumin Lipase Stool Occult Blood Positive Blood Type Antibody Screen Crossmatch 01/26/18 01/26/18 01/27/18 22:45 22:45 06:05 WBC 3.7 L 5.3 D RBC 2.46 L D 2.41 L Hgb 8.8 L D 8.6 L Hct 24.9 L D 24.3 L MCV 101.2 H D 100.9 H MCH 35.6 H 35.7 H MCHC 35.2 35.4 RDW 20.6 H D 21.8 H Plt Count 111 L 111 L MPV 10.6 9.9 Neutrophils % 74.6 Lymphocytes % 10.9 D Monocytes % 13.7 H Eosinophils % 0.6 Basophils % 0.2 PT with INR INR Sodium 140 Potassium 3.9 D Chloride 100 Carbon Dioxide 25 Anion Gap 15 BUN 70 H D Creatinine 6.4 H D Creat Clearance w eGFR 9.29 Random Glucose 172 H D Calcium 7.1 L Total Bilirubin 0.6 D AST 81 H ALT 87 H Alkaline Phosphatase 425 H Troponin I Total Protein 6.5 Albumin 3.0 L Lipase Stool Occult Blood Blood Type Antibody Screen Crossmatch Active Medications Generic Name Dose Route Start Last Admin Trade Name Freq PRN Reason Stop Dose Admin Chlorhexidine Gluconate 1 applic 01/26/18 22:00 01/26/18 21:42 Hibiclens For Decolonization - TP 1 applic HS KRISTEN Administration Sodium Chloride 250 mls @ 3,000 mls/hr 01/26/18 20:45 Normal Saline - IV 01/27/18 20:44 PRN PRN Hypotension during Dialysis Mupirocin 1 applic 01/26/18 22:00 01/26/18 21:42 Bactroban Ointment (For Decolonization) - NS 01/31/18 21:59 1 applic BID KRISTEN Administration Pantoprazole Sodium 40 mg 01/26/18 22:00 01/26/18 21:41 Protonix Iv IVPUSH 40 mg BID KRISTEN Administration ASSESSMENT/PLAN: 52M w/ hx of UGI bleeds (most recently in 07/2017, found to have ulcers), CKD on HD, HTN, DM, anemia, and CHF who was BIBEMS from the dialysis center after he was found to have a hemoglobin of 5.5 Hematology/Oncology #Severe Anemia- likely 2/2 UGI bleed -Hgb of 8.6, up from 6.3, s/p 2 units of PRBCs -GI on board, recs appreciated. Pt to get EGD this afternoon. Gastroenterology #GI Bleed- likely Upper GI bleed, given pt's prior history -continue Protonix 40mg IVP BID -GI on board, recs appreciated. Pt to get EGD this afternoon. -monitor Hgb, transfuse as needed #History of Liver Mass -Incidental findings on previous admission with high AFP of almost 15K -Refused triple phase CT on previous admission with risks explained. Patient continues to refuse. -Will need to follow up as outpatient Cardiovascular #Diastolic Heart Failure Class II-III- Stable -Patient has no signs or symptoms of acute exacerbation -Last ECHO 09/29/16 showing normal LVF and no wall abnormalities #HTN- stable and controlled -continue home valsartan Nephrology #ESRD on HD -nephro on board, recs appreciated. s/p HD w/ ultrafiltration yesterday Endocrine #DM-Controlled -Patient is currently on diet control at home -BGM's and ISS Q4H FEN/ppx -no fluids -electrolytes wnl -NPO -SCD's for DVT. Heparin contraindicated due to possible UGIB -Protonix 40mg IVP BID for GI Disposition -Full code -stable for transfer to floors Case discussed with attending, Dr. Mahoney. -Alejo Bills MD PGY1 ICU Team Visit type - Emergency Visit Emergency Visit: Yes ED Registration Date: 01/26/18 Care time: The patient presented to the Emergency Department on the above date and was hospitalized for further evaluation of their emergent condition. - New Patient This patient is new to me today: Yes Date on this admission: 01/27/18 - Critical Care Critical Care patient: Yes Total Critical Care Time (in minutes): 37 Critical Care Statement: The care of this patient involved high complexity decision making to prevent further life threatening deterioration of the patient 's condition and/or to evaluate & treat vital organ system(s) failure or risk of failure.
[2018-01-27] MEDS ORDERED: VALSARTAN 160 MG TABLET (UD) PO SCH (10:15)
[2018-01-27] MEDS: MUPIROCIN 2% TOPICAL OINTMENT FOR DECOLONIZATION NS SCH (10:18)
[2018-01-27] MEDS ORDERED: PROPOFOL 20 ML ONE ×4 (11:31→12:26)
[2018-01-27] MEDS ORDERED: LIDOCAINE HCL/PF 2% SDV 5ML VIAL ONE (11:31)
--- NOTE | 2018-01-27 11:43 | EKG ---
Test Reason : Blood Pressure : / mmHG Vent. Rate : 080 BPM Atrial Rate : 080 BPM P-R Int : 208 ms QRS Dur : 094 ms QT Int : 434 ms P-R-T Axes : 038 -19 103 degrees QTc Int : 500 ms NORMAL SINUS RHYTHM INCOMPLETE RIGHT BUNDLE BRANCH BLOCK T WAVE ABNORMALITY, CONSIDER LATERAL ISCHEMIA PROLONGED QT ABNORMAL ECG WHEN COMPARED WITH ECG OF 29-JUL-2017 17:24, QRS AXIS SHIFTED RIGHT T WAVE INVERSION NO LONGER EVIDENT IN INFERIOR LEADS T WAVE INVERSION NO LONGER EVIDENT IN ANTERIOR LEADS Confirmed by TOOTIE SHAH, CLARA ([id number]) on 01/27/2018 11:43:03 AM Referred By: Confirmed By:CLARA SOMMERS MD
[2018-01-27] MEDS: PANTOPRAZOLE SODIUM 40 MG VIAL IVPUSH SCH ×2 (12:00→21:30)
[2018-01-27 12:20] LABS: ANISOCYTOSIS 1+; MACROCYTOSIS 1+; PLATELET ESTIMATE DECREASED
[2018-01-27] MEDS ORDERED: SODIUM CHLORIDE 250 ML IV PRN (12:22)
--- NOTE | 2018-01-27 12:22 | PN ---
Progress Note, Physician History of Present Illness: Pt seen and examined at bedside. He is awake and alert. He denies shortness of breath. He denies chest pain. He tolerated HD last night. - Current Medication List Current Medications: Active Medications Chlorhexidine Gluconate (Hibiclens For Decolonization -) 1 applic TP HS [facility] Last Admin: 01/26/18 21:42 Dose: 1 applic Sodium Chloride (Normal Saline -) 250 mls @ 3,000 mls/hr IV PRN PRN PRN Reason: Hypotension during Dialysis Stop: 01/27/18 20:44 Mupirocin (Bactroban Ointment (For Decolonization) -) 1 applic NS BID [facility] Stop: 01/31/18 21:59 Last Admin: 01/27/18 10:18 Dose: Not Given Pantoprazole Sodium (Protonix Iv) 40 mg IVPUSH BID [facility] Last Admin: 01/26/18 21:41 Dose: 40 mg Sevelamer Carbonate (Renvela -) 1,600 mg PO TID [facility] Valsartan (Diovan -) 160 mg PO DAILY [facility] Last Admin: 01/27/18 10:17 Dose: 160 mg - Objective Vital Signs: Vital Signs Temperature 97.3 F L 01/27/18 04:00 Pulse Rate 77 01/27/18 10:00 Respiratory Rate 18 01/27/18 10:29 Blood Pressure 160/81 01/27/18 10:00 O2 Sat by Pulse Oximetry (%) 100 01/27/18 10:29 Constitutional: Yes: Calm Eyes: Yes: Conjunctiva Clear HENT: Yes: Atraumatic Neck: Yes: Supple Cardiovascular: Yes: S1, S2 Respiratory: Yes: CTA Bilaterally Gastrointestinal: Yes: Soft Genitourinary: Yes: WNL Musculoskeletal: Yes: WNL Edema: Yes Edema: LLE: Trace, RLE: Trace Neurological: Yes: Oriented Psychiatric: Yes: Oriented Labs: CBC, BMP 01/27/18 06:05 01/26/18 22:45 INR, PTT INR 0.96 (0.82-1.09) 01/26/18 16:43 Problem List - Problems (1) Anemia Code(s): D64.9 - ANEMIA, UNSPECIFIED Qualifiers: Anemia type: due to chronic kidney disease Chronic kidney disease stage: on chronic dialysis Qualified Code(s): N18.6 - End stage renal disease; D63.1 - Anemia in chronic kidney disease; D63.1 - Anemia in chronic kidney disease; Z99.2 - Dependence on renal dialysis; Z99.2 - Dependence on renal dialysis; Z99.2 - Dependence on renal dialysis; Z99.2 - Dependence on renal dialysis (2) Diabetes Code(s): E11.9 - TYPE 2 DIABETES MELLITUS WITHOUT COMPLICATIONS Qualifiers: (3) ESRD (end stage renal disease) Code(s): N18.6 - END STAGE RENAL DISEASE Assessment/Plan Current Medications Generic Name Dose Route Start Last Admin Trade Name Freq PRN Reason Stop Dose Admin Chlorhexidine Gluconate 1 applic 01/26/18 22:00 01/26/18 21:42 Hibiclens For Decolonization - TP 1 applic HS KRISTEN Administration Sodium Chloride 250 mls @ 3,000 mls/hr 01/26/18 20:45 Normal Saline - IV 01/27/18 20:44 PRN PRN Hypotension during Dialysis Mupirocin 1 applic 01/26/18 22:00 01/27/18 10:18 Bactroban Ointment (For Decolonization) - NS 01/31/18 21:59 Not Given BID KRISTEN Pantoprazole Sodium 40 mg 01/26/18 22:00 01/26/18 21:41 Protonix Iv IVPUSH 40 mg BID KRISTEN Administration Sevelamer Carbonate 1,600 mg 01/27/18 14:00 Renvela - PO TID KRISTEN Valsartan 160 mg 01/27/18 10:15 01/27/18 10:17 Diovan - PO 160 mg DAILY KRISTEN Administration Impression 1. ESRD 2. DM 3. diabetic nephropathy 4. HTN 5. obesity 6. anemia 7. iron deficiency 8. CHF 9. anemia 10. hyperkalemia 11. liver mass 12. GI bleed Plan - pt tolerated HD last night - cont to monitor hg - GI follow up - will arrange for HD again tomorrow - transfuse as needed - discussed with medical team - will follow - repeat bp after am meds Dr Quezada
--- NOTE | 2018-01-27 12:25 | PN ---
Teaching Attending Note Name of Resident: Alejo Bills ATTENDING PHYSICIAN STATEMENT I saw and evaluated the patient. I reviewed the resident's note and discussed the case with the resident. I agree with the resident's findings and plan as documented. SUBJECTIVE: Pt seen and examined in the ICU. Episode of dark stools overnight. Transfused 2 units PRBC with appropriate response. Denies shortness of breath, chest pain or abdominal pain. OBJECTIVE: Last Vital Signs Temp Pulse Resp BP Pulse Ox 97.3 F L 77 18 160/81 100 01/27/18 04:00 01/27/18 10:00 01/27/18 10:29 01/27/18 10:00 01/27/18 10:29 Intake & Output 01/24/18 01/25/18 01/26/18 01/27/18 23:59 23:59 23:59 23:59 Intake Total 700 500 Balance 700 500 Weight 91.257 kg 91.257 kg Gen: NAD at rest Heart: RRR Lung: decreased breath sounds at the bases Abd: soft, nontender Ext: no edema CBC, BMP 01/27/18 06:05 01/26/18 22:45 Active Medications Chlorhexidine Gluconate (Hibiclens For Decolonization -) 1 applic TP HS [facility] Last Admin: 01/26/18 21:42 Dose: 1 applic Sodium Chloride (Normal Saline -) 250 mls @ 3,000 mls/hr IV PRN PRN PRN Reason: Hypotension during Dialysis Stop: 01/27/18 20:44 Mupirocin (Bactroban Ointment (For Decolonization) -) 1 applic NS BID [facility] Stop: 01/31/18 21:59 Last Admin: 01/27/18 10:18 Dose: Not Given Pantoprazole Sodium (Protonix Iv) 40 mg IVPUSH BID [facility] Last Admin: 01/26/18 21:41 Dose: 40 mg Sevelamer Carbonate (Renvela -) 1,600 mg PO TID [facility] Valsartan (Diovan -) 160 mg PO DAILY [facility] Last Admin: 01/27/18 10:17 Dose: 160 mg ASSESSMENT AND PLAN: GI Bleed Acute Blood Loss Anemia Liver Mass LV Diastolic Dysfunction ESRD on HD HTN DM - monitor H/H - transfuse as needed - NPO - for endoscopy - HD per renal - DVT prophylaxis - can monitor on floor
[2018-01-27] MEDS ORDERED: PANTOPRAZOLE SODIUM 40 MG VIAL IVPUSH SCH (12:45)
--- NOTE | 2018-01-27 12:47 | PROC ---
Endoscopy Procedure Endoscopy procedure completed. Please see scanned procedure report. see consult for details
--- NOTE | 2018-01-27 13:15 | CON.GI ---
Consult Consult Specialty:: GI Reason for Consultation:: GI bleeding - History of Present Illness History of Present Illness: chart reviewed. Events noted. The patient is known to GI service from prior admission in July 2017. He was diagnosed with duodenal bulb ulcer. The ulcer was mitigated with injection of epinephrine and clipping. Now patient presents with 2 days of epigastric abdominal pain. Was found to have hemoglobin 6 g/dL on admission. Not orthostatic. No surya melena, hematochezia, hematemesis. Underwent dialysis last night. No events overnight. On exam appears pale, otherwise asymptomatic. Ambulatory. Denies chronic alcohol, NSAIDs. not taking PPI. Denies jaundice, low-grade fever, chills, unintentional weight loss. - History Source History Provided By: Patient, Medical Record - Past Medical History Cardio/Vascular: Yes: HTN, Hyperlipdemia Renal/: Yes: Renal Failure, Renal Inusuff Endocrine: Yes: Diabetes Mellitus - Alcohol/Substance Use Hx Alcohol Use: Yes (2 glasses wine/day) History of Substance Use: reports: None - Smoking History Smoking history: Never smoked Have you smoked in the past 12 months: No Aproximately how many cigarettes per day: 0 - Social History ADL: Independent Home Medications - Allergies Allergies/Adverse Reactions: Allergies Allergy/AdvReac Type Severity Reaction Status Date / Time Penicillins Allergy Intermediate Verified 01/26/18 16:42 - Home Medications Home Medications: Ambulatory Orders Carvedilol [Coreg] 25 mg PO BID #60 tablet 10/01/16 Calcium Acetate 670 mg PO TID 05/05/17 Valsartan [Diovan] 160 mg PO DAILY 05/05/17 Furosemide [Lasix -] 40 mg PO DAILY 07/30/17 Atorvastatin Calcium 20 mg PO HS 01/27/18 Sevelamer Carbonate [Renvela] 1,600 mg PO TID 01/27/18 Family Disease History - Family Disease History Family History: Unremarkable (noncontributory) Family Disease History: Diabetes: Brother (CVA), Heart Disease: Father Review of Systems Findings/Remarks: as per H&P and HPI Physical Exam-GI Vital Signs: Vital Signs Temperature 97.3 F L 01/27/18 04:00 Pulse Rate 77 01/27/18 10:00 Respiratory Rate 18 01/27/18 10:29 Blood Pressure 160/81 01/27/18 10:00 O2 Sat by Pulse Oximetry (%) 100 01/27/18 10:29 Constitutional: Yes: No Distress, Calm, Pallor Eyes: No: Sclera Icterus HENT: Yes: Atraumatic Neck: Yes: Supple Cardiovascular: No: Bradycardia, Tachycardia Respiratory: Yes: Regular Gastrointestinal Inspection: No: Ascites, Distention ...Auscultate: Yes: Normoactive Bowel Sounds ...Palpate: Yes: Soft. No: Firm/Rigid, Guarding ...Rectal Exam: Yes: Guaiac Positive Integumentary: No: Jaundice Neurological: Yes: Alert, Oriented Labs: CBC, BMP 01/27/18 06:05 01/26/18 22:45 INR, PTT INR 0.96 (0.82-1.09) 01/26/18 16:43 Laboratory Tests 01/26/18 01/26/18 01/26/18 16:43 16:43 16:43 WBC 4.3 D RBC 1.65 L D Hgb 6.3 L* Hct 18.0 L MCV 109.5 H MCH 38.2 H D MCHC 34.9 RDW 15.9 D Plt Count 107 L MPV 10.2 D Neutrophils % 64.5 Lymphocytes % 22.4 D Monocytes % 11.8 H Eosinophils % 1.0 D Basophils % 0.3 PT with INR INR Sodium 134 L Potassium 5.3 H D Chloride 95 L Carbon Dioxide 21 D Anion Gap 18 H BUN > 150 H* D Creatinine 13.3 H* D Creat Clearance w eGFR 3.99 POC Glucometer Random Glucose 96 D Calcium 6.6 L* Total Bilirubin 0.4 D AST 78 H D ALT 80 H D Alkaline Phosphatase 396 H D Troponin I Total Protein 5.9 L Albumin 2.8 L Lipase 944 H Stool Occult Blood Hep A IgM Ab Confirm Hepatitis A Ab Total Hep Bs Antigen Hep Bs Ag Confirmation Hep Bs Antibody Hep B Core Total Ab Hep C Ab Diagnostic HCV RNA PCR log cop breaker/ml HCV RNA (PCR) IUs/ml Liver Fibrosis Interp Blood Type O POSITIVE Antibody Screen Negative Crossmatch See Detail 01/26/18 01/26/18 01/26/18 16:43 17:38 18:11 WBC RBC Hgb Hct MCV MCH MCHC RDW Plt Count MPV Neutrophils % Lymphocytes % Monocytes % Eosinophils % Basophils % PT with INR 10.90 INR 0.96 Sodium Potassium Chloride Carbon Dioxide Anion Gap BUN Creatinine Creat Clearance w eGFR POC Glucometer Random Glucose Calcium Total Bilirubin AST ALT Alkaline Phosphatase Troponin I 0.03 D Total Protein Albumin Lipase Stool Occult Blood Positive Hep A IgM Ab Confirm Hepatitis A Ab Total Hep Bs Antigen Hep Bs Ag Confirmation Hep Bs Antibody Hep B Core Total Ab Hep C Ab Diagnostic HCV RNA PCR log cop breaker/ml HCV RNA (PCR) IUs/ml Liver Fibrosis Interp Blood Type Antibody Screen Crossmatch 01/26/18 01/26/18 01/26/18 22:45 22:45 22:45 WBC 3.7 L RBC 2.46 L D Hgb 8.8 L D Hct 24.9 L D MCV 101.2 H D MCH 35.6 H MCHC 35.2 RDW 20.6 H D Plt Count 111 L MPV 10.6 Neutrophils % Lymphocytes % Monocytes % Eosinophils % Basophils % PT with INR INR Sodium 140 Potassium 3.9 D Chloride 100 Carbon Dioxide 25 Anion Gap 15 BUN 70 H D Creatinine 6.4 H D Creat Clearance w eGFR 9.29 POC Glucometer Random Glucose 172 H D Calcium 7.1 L Total Bilirubin 0.6 D AST 81 H ALT 87 H Alkaline Phosphatase 425 H Troponin I Total Protein 6.5 Albumin 3.0 L Lipase Stool Occult Blood Hep A IgM Ab Confirm Cancelled Hepatitis A Ab Total Cancelled Hep Bs Antigen Cancelled Hep Bs Ag Confirmation Cancelled Hep Bs Antibody Cancelled Hep B Core Total Ab Cancelled Hep C Ab Diagnostic Cancelled HCV RNA PCR log cop breaker/ml Cancelled HCV RNA (PCR) IUs/ml Cancelled Liver Fibrosis Interp Cancelled Blood Type Antibody Screen Crossmatch 01/27/18 01/27/18 06:05 09:41 WBC 5.3 D RBC 2.41 L Hgb 8.6 L Hct 24.3 L MCV 100.9 H MCH 35.7 H MCHC 35.4 RDW 21.8 H Plt Count 111 L MPV 9.9 Neutrophils % 74.6 Lymphocytes % 10.9 D Monocytes % 13.7 H Eosinophils % 0.6 Basophils % 0.2 PT with INR INR Sodium Potassium Chloride Carbon Dioxide Anion Gap BUN Creatinine Creat Clearance w eGFR POC Glucometer [phone] Random Glucose Calcium Total Bilirubin AST ALT Alkaline Phosphatase Troponin I Total Protein Albumin Lipase Stool Occult Blood Hep A IgM Ab Confirm Hepatitis A Ab Total Hep Bs Antigen Hep Bs Ag Confirmation Hep Bs Antibody Hep B Core Total Ab Hep C Ab Diagnostic HCV RNA PCR log cop breaker/ml HCV RNA (PCR) IUs/ml Liver Fibrosis Interp Blood Type Antibody Screen Crossmatch Problem List - Problems (1) History of duodenal ulcer Code(s): Z87.19 - PERSONAL HISTORY OF OTHER DISEASES OF THE DIGESTIVE SYSTEM (2) Chronic anemia Code(s): D64.9 - ANEMIA, UNSPECIFIED (3) Gastrointestinal bleeding Code(s): K92.2 - GASTROINTESTINAL HEMORRHAGE, UNSPECIFIED Qualifiers: GI bleed type/associated pathology: unspecified gastrointestinal hemorrhage type Qualified Code(s): K92.2 - Gastrointestinal hemorrhage, unspecified Assessment/Plan Multifactorial anemia likely exacerbated by upper GI bleed. History of bleeding duodenal ulcer in July 2017. Not on PPI at home. Agree with blood transfusion and PPI. Upper endoscopy was performed today and revealed 3 duodenal ulcers and one gastric ulcer. Two out of three duodenal ulcers had stigmata of recent, or impending bleeding, red spots. These 2 ulcers were about 1 cm in diameter, shallow and were cauterized with heater probe successfully. The third, smaller ulcer was cauterized as well. 1 cm, shallow, white-based ulcer was found in the antrum. Multiple biopsies were taken. Additional, random, gastric biopsies were obtained and sent to pathology. Severe esophagitis was noted. Multiple biopsies of the area were obtained. Start clear liquid diet. PPI IV piggyback twice a day. Carafate 1 g by mouth 4 times a day if okay with the renal. Follow biopsy results to rule out H. pylori infection. Ideally, obtain gastrin level while off PPI for at least 2 weeks.
[2018-01-27] MEDS ORDERED: SEVELAMER CARBONATE 800 MG TAB (FP) PO SCH (14:00)
[2018-01-27] MEDS ORDERED: ARTIFICIAL TEARS (POLYVINYL ALCOHOL 1.4%) OPTH DROPS OU PRN (14:05)
[2018-01-27 14:20] LABS: HEMATOCRIT 23.9 % (35.4-49); HEMOGLOBIN 8.3 GM/dL (11.7-16.9); MCH 35.5 pg (25.7-33.7); MCHC 34.9 g/dl (32.0-35.9); MEAN CELL VOLUME 101.8 fl (80-96); MEAN PLT VOLUME 10.1 fl (7.5-11.1); PLATELET COUNT 107 K/MM3 (134-434); RBC 2.34 M/mm3 (4.00-5.60); RDW 21.8 % (11.9-15.9); WHITE BLOOD COUNT 4.6 K/mm3 (4.0-10.0)
--- NOTE | 2018-01-27 14:47 | PN ---
Teaching Attending Note Name of Resident: Robert Bhakta ATTENDING PHYSICIAN STATEMENT I saw and evaluated the patient. I reviewed the resident's note and discussed the case with the resident. I agree with the resident's findings and plan as documented. SUBJECTIVE: no abd pain. feels a little better . has no N/V . reports drinking 1 wine almost every night . OBJECTIVE: NAD , MMM, pale CV: RRR. LUngs : CTAB Ext: no edema ABd: soft, NT, ND , NL BS. Liver and spleen are not palpated or percussed ASSESSMENT AND PLAN: 52 y/o man with h/o ESRD, non compliance , upper GI bleed 2/2 duodenal ulcers, HTN and DM who presented with anemia form HD center 1- Acute blood loss anemia : 2/2 to upper GI bleed. - EGD with duodenal and gastric ulcers and severe esophagitis . likely due to uremia and alcohol use - cont PPI - start carafate - celars - repeat HB - w/u with gastrin level a out pt 2- ESRG : non compliant with HD. d/w Dr. Quezada - s/p HD yeterday. - HD again tomorrow 3- Hepatic mass discovered last admission. pt is aware of it. DDX was given ( including HCC) . he understands the importance of f/u with GI as out pt for further imaging and w/u 4- h/o chronic Diastolic CHF: volume mgt with HD 5- DM : SSI for now dispo HLOC
[2018-01-27] MEDS: SEVELAMER CARBONATE 800 MG TAB (FP) PO SCH (17:30)
--- NOTE | 2018-01-27 19:12 | PN ---
Physical Exam: SUBJECTIVE: Patient seen and examined at bedside. No new complaints. No events overnight. Patient more receptive to treatment this AM. OBJECTIVE: Vital Signs Period Temp Pulse Resp BP Sys/Hayden Pulse Ox Last 24 Hr 97.3 F-98.5 F 70-89 15-20 105-160/72-114 100-100 GENERAL: The patient is awake, alert, and fully oriented, in no acute distress. HEAD: Normal with no signs of trauma. EYES: PERRL, extraocular movements intact, sclera anicteric, conjunctiva clear. No ptosis. Right eye dysconjugate w/ scleral injection. Per patient this is his baseline. LUNGS: Breath sounds equal, clear to auscultation bilaterally, no wheezes, no crackles, no accessory muscle use. HEART: Regular rate and rhythm, S1, S2 without murmur, rub or gallop. ABDOMEN: Soft, nontender, nondistended, normoactive bowel sounds, no guarding, no rebound, no hepatosplenomegaly, no masses. EXTREMITIES: 2+ pulses, warm, well-perfused, no edema. NEUROLOGICAL: Cranial nerves II through X grossly intact. Normal speech, gait not observed. PSYCH: Normal mood, normal affect. SKIN: Warm, dry, normal turgor, no rashes or lesions noted Laboratory Results - last 24 hr 01/26/18 01/26/18 01/26/18 16:43 22:45 22:45 WBC 3.7 L RBC 2.46 L D Hgb 8.8 L D Hct 24.9 L D MCV 101.2 H D MCH 35.6 H MCHC 35.2 RDW 20.6 H D Plt Count 111 L MPV 10.6 Neutrophils % Lymphocytes % Monocytes % Eosinophils % Basophils % Platelet Estimate Platelet Comment Poikilocytosis Anisocytosis Macrocytosis Sodium Potassium Chloride Carbon Dioxide Anion Gap BUN Creatinine Creat Clearance w eGFR POC Glucometer Random Glucose Calcium Total Bilirubin AST ALT Alkaline Phosphatase Total Protein Albumin Hep A IgM Ab Confirm Cancelled Hepatitis A Ab Total Cancelled Hep Bs Antigen Cancelled Hep Bs Ag Confirmation Cancelled Hep Bs Antibody Cancelled Hep B Core Total Ab Cancelled Hep C Ab Diagnostic Cancelled HCV RNA PCR log photocopying equipment repairer/ml Cancelled HCV RNA (PCR) IUs/ml Cancelled Liver Fibrosis Interp Cancelled Blood Type O POSITIVE Antibody Screen Negative Crossmatch See Detail 0401/27/18 01/27/18 22:45 06:05 09:41 WBC 5.3 D RBC 2.41 L Hgb 8.6 L Hct 24.3 L MCV 100.9 H MCH 35.7 H MCHC 35.4 RDW 21.8 H Plt Count 111 L MPV 9.9 Neutrophils % 74.6 Lymphocytes % 10.9 D Monocytes % 13.7 H Eosinophils % 0.6 Basophils % 0.2 Platelet Estimate Decreased Platelet Comment Present Poikilocytosis 1+ Anisocytosis 1+ Macrocytosis 1+ Sodium 140 Potassium 3.9 D Chloride 100 Carbon Dioxide 25 Anion Gap 15 BUN 70 H D Creatinine 6.4 H D Creat Clearance w eGFR 9.29 POC Glucometer [phone] Random Glucose 172 H D Calcium 7.1 L Total Bilirubin 0.6 D AST 81 H ALT 87 H Alkaline Phosphatase 425 H Total Protein 6.5 Albumin 3.0 L Hep A IgM Ab Confirm Hepatitis A Ab Total Hep Bs Antigen Hep Bs Ag Confirmation Hep Bs Antibody Hep B Core Total Ab Hep C Ab Diagnostic HCV RNA PCR log photocopying equipment repairer/ml HCV RNA (PCR) IUs/ml Liver Fibrosis Interp Blood Type Antibody Screen Crossmatch 01/27/18 13:50 WBC 4.6 RBC 2.34 L Hgb 8.3 L Hct 23.9 L MCV 101.8 H MCH 35.5 H MCHC 34.9 RDW 21.8 H Plt Count 107 L MPV 10.1 Neutrophils % Lymphocytes % Monocytes % Eosinophils % Basophils % Platelet Estimate Platelet Comment Poikilocytosis Anisocytosis Macrocytosis Sodium Potassium Chloride Carbon Dioxide Anion Gap BUN Creatinine Creat Clearance w eGFR POC Glucometer Random Glucose Calcium Total Bilirubin AST ALT Alkaline Phosphatase Total Protein Albumin Hep A IgM Ab Confirm Hepatitis A Ab Total Hep Bs Antigen Hep Bs Ag Confirmation Hep Bs Antibody Hep B Core Total Ab Hep C Ab Diagnostic HCV RNA PCR log photocopying equipment repairer/ml HCV RNA (PCR) IUs/ml Liver Fibrosis Interp Blood Type Antibody Screen Crossmatch Active Medications Generic Name Dose Route Start Last Admin Trade Name Freq PRN Reason Stop Dose Admin Artificial Tears 1 drop 01/27/18 14:05 Artificial Tears OU QID PRN DRY EYES Chlorhexidine Gluconate 1 applic 01/27/18 22:00 Hibiclens For Decolonization - TP HS KRISTEN Epoetin Dylon 8,000 unit 01/28/18 12:22 Procrit - IVPUSH 04/19/18 12:23 ONCE ONE Sodium Chloride 250 mls @ 3,000 mls/hr 01/27/18 16:20 Normal Saline - IV 01/27/18 20:44 PRN PRN Hypotension during Dialysis Mupirocin 1 applic 01/27/18 22:00 Bactroban Ointment (For Decolonization) - NS 01/31/18 21:59 BID KRISTEN Pantoprazole Sodium 40 mg 01/27/18 22:00 Protonix Iv IVPUSH BID KRISTEN Sevelamer Carbonate 1,600 mg 01/27/18 17:30 01/27/18 17:30 Renvela - PO 1,600 mg TIDCM KRISTEN Administration Valsartan 160 mg 01/28/18 10:00 Diovan - PO DAILY KRISTEN ASSESSMENT/PLAN: The patient is a 52M w/PMH HTN, DM, ESRD (T/T/S), CHF, chronic anemia who was admitted to the ICU for UGIB and HD. #Anemia likely due to UGIB -s/p EGD today; several duodenal, antral ulcers cauterized -gastrin in AM as per GI -f/u bx of stomach lining and ulcers for H. Pylori -s/p 2 units PRBC -AM Hb 8.3; appropriate response, monitor -protonix 40 ivp BID #CKD on HD -s/p HD yesterday -Dr. Quezada consulted -for HD tomorrow as per schedule -restart home Renvela #hx of Liver mass -Abd U/S showing hepatic mass on previous admission, can be followed as outpatient -Unclear etiology #Hx Diastolic class III CHF -no signs of fluid overload at this time -fluid mgmt w/ HD #DM -BGM ACHS -ISS ACHS #HTN -restart home Diovan -holding other antihypertensives until BP stable #FEN -no fluids indicated -monitor lytes. replete PRN -clear liquid diet #Prophylaxis -SCDs in light of recent bleeding -Protonix 40mg IVP BID #Dispo -transferred to med surg from ICU -DC planning Visit type - Emergency Visit Emergency Visit: Yes ED Registration Date: 01/26/18 Care time: The patient presented to the Emergency Department on the above date and was hospitalized for further evaluation of their emergent condition. - New Patient This patient is new to me today: Yes Date on this admission: 01/27/18 - Critical Care Critical Care patient: Yes Total Critical Care Time (in minutes): 45 Critical Care Statement: The care of this patient involved high complexity decision making to prevent further life threatening deterioration of the patient 's condition and/or to evaluate & treat vital organ system(s) failure or risk of failure.
[2018-01-27] MEDS ORDERED: CHLORHEXIDINE GLUCONATE 4% CLEANSER FOR DECOLONIZATION TP SCH (22:00)
[2018-01-27] MEDS ORDERED: MUPIROCIN 2% TOPICAL OINTMENT FOR DECOLONIZATION NS SCH (22:00)
[2018-01-27] MEDS ORDERED: PANTOPRAZOLE 40 MG TABLET (FP) PO SCH (22:00)
[2018-01-28 07:54] LABS: ALBUMIN 2.7 g/dl (3.4-5.0); ANION GAP 14 (8-16); BLOOD UREA NITROGEN 91 mg/dL (7-18); CHLORIDE 97 mmol/L (98-107); CO2 24 mmol/L (21-32); GLUCOSE,RANDOM 86 mg/dL (74-106); PHOSPHOROUS 5.2 mg/dL (2.5-4.9); POTASSIUM 4.7 mmol/L (3.5-5.1); SGOT/AST 55 U/L (15-37); SODIUM 135 mmol/L (136-145)
[2018-01-28 07:56] LABS: BASO % 0.2 % (0-2.0); EOS % 2.2 % (0-4.5); HEMATOCRIT 26.3 % (35.4-49); HEMOGLOBIN 9.1 GM/dL (11.7-16.9); LYMPH % 20.5 % (8-40); MCH 35.3 pg (25.7-33.7); MCHC 34.4 g/dl (32.0-35.9); MEAN CELL VOLUME 102.5 fl (80-96); MEAN PLT VOLUME 10.3 fl (7.5-11.1); MONO % 15.5 % (3.8-10.2); NEUT % 61.6 % (42.8-82.8); PLATELET COUNT 144 K/MM3 (134-434); RBC 2.57 M/mm3 (4.00-5.60); RDW 21.4 % (11.9-15.9)
[2018-01-28 08:01] LABS: ALK PHOS 397 U/L (45-117); BILIRUBIN,TOTAL 0.7 mg/dL (0.2-1.0); SGPT/ALT 67 U/L (12-78); TOT PROT 6.3 g/dl (6.4-8.2)
[2018-01-28 08:14] LABS: CALCIUM 6.7 mg/dL (8.5-10.1); CREATININE 10.5 mg/dL (0.7-1.3)
[2018-01-28] MEDS: VALSARTAN 160 MG TABLET (UD) PO SCH ×2 (09:37→11:47)
[2018-01-28] MEDS: SEVELAMER CARBONATE 800 MG TAB (FP) PO SCH ×2 (09:37→11:46)
[2018-01-28] MEDS: PANTOPRAZOLE SODIUM 40 MG VIAL IVPUSH SCH ×2 (09:37→11:48)
[2018-01-28] MEDS ORDERED: SODIUM CHLORIDE 250 ML IV PRN (10:30)
[2018-01-28] MEDS ORDERED: EPOETIN ALFA 10,000 UNIT/1 ML VIAL IVPUSH ONE (10:30)
--- NOTE | 2018-01-28 11:43 | PN ---
Progress Note, Physician History of Present Illness: Pt seen and examined at bedside. He is currently getting HD. He denies shortness of breath. He is eager to go home. - Current Medication List Current Medications: Active Medications Artificial Tears (Artificial Tears) 1 drop OU QID PRN PRN Reason: DRY EYES Sodium Chloride (Normal Saline -) 250 mls @ 3,000 mls/hr IV PRN PRN PRN Reason: Hypotension during Dialysis Stop: 01/28/18 14:00 Pantoprazole Sodium (Protonix Iv) 40 mg IVPUSH BID [facility] Last Admin: 01/28/18 09:37 Dose: Not Given Sevelamer Carbonate (Renvela -) 1,600 mg PO TIDCM [facility] Last Admin: 01/28/18 09:37 Dose: Not Given Valsartan (Diovan -) 160 mg PO DAILY [facility] Last Admin: 01/28/18 09:37 Dose: Not Given - Objective Vital Signs: Vital Signs Temperature 97.8 F 01/28/18 07:55 Pulse Rate 79 01/28/18 10:30 Respiratory Rate 18 01/28/18 10:30 Blood Pressure 162/95 01/28/18 10:30 O2 Sat by Pulse Oximetry (%) 100 01/27/18 21:00 Constitutional: Yes: Calm Eyes: Yes: Conjunctiva Clear HENT: Yes: Atraumatic Neck: Yes: Supple Cardiovascular: Yes: S1, S2 Respiratory: Yes: CTA Bilaterally Gastrointestinal: Yes: Soft Genitourinary: Yes: WNL Musculoskeletal: Yes: WNL Edema: No Neurological: Yes: Oriented Psychiatric: Yes: Oriented Labs: CBC, BMP 01/28/18 07:00 01/28/18 07:00 INR, PTT INR 0.96 (0.82-1.09) 01/26/18 16:43 Problem List - Problems (1) Anemia Code(s): D64.9 - ANEMIA, UNSPECIFIED Qualifiers: Anemia type: due to chronic kidney disease Chronic kidney disease stage: on chronic dialysis Qualified Code(s): N18.6 - End stage renal disease; D63.1 - Anemia in chronic kidney disease; D63.1 - Anemia in chronic kidney disease; Z99.2 - Dependence on renal dialysis; Z99.2 - Dependence on renal dialysis; Z99.2 - Dependence on renal dialysis; Z99.2 - Dependence on renal dialysis (2) Diabetes Code(s): E11.9 - TYPE 2 DIABETES MELLITUS WITHOUT COMPLICATIONS Qualifiers: (3) ESRD (end stage renal disease) Code(s): N18.6 - END STAGE RENAL DISEASE Assessment/Plan Current Medications Generic Name Dose Route Start Last Admin Trade Name Freq PRN Reason Stop Dose Admin Artificial Tears 1 drop 01/27/18 14:05 Artificial Tears OU QID PRN DRY EYES Sodium Chloride 250 mls @ 3,000 mls/hr 01/28/18 10:30 Normal Saline - IV 01/28/18 14:00 PRN PRN Hypotension during Dialysis Pantoprazole Sodium 40 mg 01/27/18 22:00 01/28/18 09:37 Protonix Iv IVPUSH Not Given BID KRISTEN Sevelamer Carbonate 1,600 mg 01/27/18 17:30 01/28/18 09:37 Renvela - PO Not Given TIDCM KRISTEN Valsartan 160 mg 01/28/18 10:00 01/28/18 09:37 Diovan - PO Not Given DAILY KRISTEN Impression 1. ESRD 2. DM 3. diabetic nephropathy 4. HTN 5. obesity 6. anemia 7. iron deficiency 8. CHF 9. anemia 10. hyperkalemia 11. liver mass 12. GI bleed Plan - HD today - monitor hg - discussed with medical team this morning - HD is set up as outpt - GI follow up for plan - will follow Dr Quezada
[2018-01-28] MEDS ORDERED: PT OWN MED DRAWER 7, Y5N ONE (11:48)
[2018-01-28 11:54] VITALS: BP 150/91; PULSE 83; TEMP 98.1
--- NOTE | 2018-01-28 14:20 | PN ---
Teaching Attending Note Name of Resident: Cristian Rutherford ATTENDING PHYSICIAN STATEMENT I saw and evaluated the patient. I reviewed the resident's note and discussed the case with the resident. I agree with the resident's findings and plan as documented. SUBJECTIVE: no fever ro chills , had brown BM yesterday. no N/V . Obj: NAD , MMM CV: RRR. LUngs : CTAB Ext: no edema ABd: soft, NT, ND , NL BS. Liver and spleen are not palpated or percussed ASSESSMENT AND PLAN: 52 y/o man with h/o ESRD, non compliance , upper GI bleed 2/2 duodenal ulcers, HTN and DM who presented with anemia form HD center 1- Acute blood loss anemia : 2/2 to upper GI bleed. - EGD with duodenal and gastric ulcers and severe esophagitis . likely due to uremia and alcohol use - cont PPI at dc . -stable HB - w/u with gastrin level a out pt - f/u with GI for bx results 2- ESRG : non compliant with HD. - s/p HD today - cont HD as out pt 3- Hepatic mass discovered last admission. pt is aware of it and of the possibility of HCC . f/u as outpt 4- h/o chronic Diastolic CHF: volume mgt with HD 5- h/o DM : last A1c 5.6 , not on any meds at home and now not requiring any insulin. f/u as out pt dispo : dc home
--- NOTE | 2018-01-28 14:26 | DS ---
Physical Exam: SUBJECTIVE: Patient seen and examined at bedside. The patient states he is much improved. No abdominal pain, no new complaints. OBJECTIVE: Vital Signs Period Temp Pulse Resp BP Sys/Hayden Pulse Ox Last 24 Hr 97.8 F-98.4 F 71-85 18-20 140-173/80-102 98-100 PHYSICAL EXAM GENERAL: The patient is awake, alert, and fully oriented, in no acute distress. HEAD: Normal with no signs of trauma. NECK: Trachea midline, full range of motion, supple. LUNGS: Breath sounds equal, clear to auscultation bilaterally, no wheezes, no crackles, no accessory muscle use. HEART: Regular rate and rhythm, S1, S2 without murmur, rub or gallop. ABDOMEN: Soft, nontender, nondistended, normoactive bowel sounds, no guarding, no rebound, no hepatosplenomegaly, no masses. EXTREMITIES: 2+ pulses, warm, well-perfused, no edema. NEUROLOGICAL: Cranial nerves II through X grossly intact. Normal speech, gait not observed. PSYCH: Normal mood, normal affect. SKIN: Warm, dry, normal turgor, no rashes or lesions noted. LABS Laboratory Results - last 24 hr 01/26/18 01/27/18 01/27/18 22:45 13:50 21:08 WBC 4.6 RBC 2.34 L Hgb 8.3 L Hct 23.9 L MCV 101.8 H MCH 35.5 H MCHC 34.9 RDW 21.8 H Plt Count 107 L MPV 10.1 Neutrophils % Lymphocytes % Monocytes % Eosinophils % Basophils % Sodium Potassium Chloride Carbon Dioxide Anion Gap BUN Creatinine Creat Clearance w eGFR POC Glucometer 105 Random Glucose Calcium Phosphorus Magnesium Total Bilirubin AST ALT Alkaline Phosphatase Total Protein Albumin Hep C Ab Diagnostic <0.1 01/28/18 01/28/18 01/28/18 07:00 07:00 07:10 WBC 6.0 D RBC 2.57 L Hgb 9.1 L Hct 26.3 L MCV 102.5 H MCH 35.3 H MCHC 34.4 RDW 21.4 H Plt Count 144 D MPV 10.3 Neutrophils % 61.6 Lymphocytes % 20.5 D Monocytes % 15.5 H Eosinophils % 2.2 D Basophils % 0.2 Sodium 135 L Potassium 4.7 D Chloride 97 L Carbon Dioxide 24 Anion Gap 14 BUN 91 H D Creatinine 10.5 H* D Creat Clearance w eGFR 5.24 POC Glucometer 90 Random Glucose 86 D Calcium 6.7 L* Phosphorus 5.2 H D Magnesium 2.0 D Total Bilirubin 0.7 AST 55 H D ALT 67 D Alkaline Phosphatase 397 H Total Protein 6.3 L Albumin 2.7 L Hep C Ab Diagnostic HOSPITAL COURSE: Date of Admission:01/26/18 The patient is a 52 yo m w/ PMH HTN, DM, ESRD (TTS), CHF and chonic anemia who presented to the ED from dialysis after his Hb was found to be 5.5. In the ED, the patient was found to he anemic to 6.3 with a creatinine of 13.3, and to have a positive FOBT. He was admitted to the ICU for the treatment of an upper GI Bleed. The patient was treated with Protonix and 2 units of PRBCs. GI was consulted. Nephrology was consulted. The patient underwent endoscopy on 01/[address] Denis. The endoscopy revealed 3 duodenal ulcers, 1 gastric ulcer and 1 antral ulcer. The ulcers were cauterized and multiple biopsies were taken and sent for both pathology and H. Pylori. The patient was dialyzed according to his normal schedule while admitted. The patient felt better after the procedure, was transferred out of the ICU, then discharged the next day. The patient was reminded of a mass in his liver found during a previous admission and encouraged to follow up with Dr. Denis within one week for workup of this and follow up after his endoscopy. The patient was also advised to follow up with his keg raiser within one week of discharge home. The patient expressed interest in going to a new PCP, so a referral to the [facility] resident clinic was provided to him. Date of Discharge: 01/28/18 Minutes to complete discharge: 56 Discharge Summary Reason For Visit: GI HEMORRHAGE; ANEMIA; HYPERKALEMIA Condition: Improved - Instructions Diet, Activity, Other Instructions: You were admitted for the treatment of your anemia which was caused by ulcers in your stomach. You also received dialysis while you were admitted, return to your usual Thursday//Thursday schedule. You should follow up with your primary care physician within 1 week of discharge home. please follow with Dr. Rutherford in Dr. Duarte's clinic You should also follow up with a service specialist to further evaluate the cause of your ulcers as well as the mass in your liver. Information for Dr. Denis, who saw you during your admission, has been included in your discharge paperwork. Please call to make an appointment. You should get a gastrin level, a blood test, while off proton pump inhibitors( protonix) for at least 2 weeks[address] speak with Dr. Denis or your PCP to arrange for this test. Biopsy results from your endoscopy are pending, Dr. Denis will follow on that once you see him Continue your home medications as prescribed. If you begin to experience chest pain, shortness of breath, worsening weakness, excessive swelling of the legs or if any of your symptoms become worse, please call your doctor or return to the emergency department. avoid motrin, aspirin, advil, and similar medications that can cause bleeding. also avoid alcohol Referrals: Cristian Rutherford RES [Resident] - 1 Week Alex Denis MD [Staff Physician] - Cate Quezada MD [Staff Physician] - Disposition: HOME - Home Medications Comprehensive Discharge Medication List: Ambulatory Orders Carvedilol [Coreg] 25 mg PO BID #60 tablet 10/01/16 Calcium Acetate 670 mg PO TID 05/05/17 Valsartan [Diovan] 160 mg PO DAILY 05/05/17 Furosemide [Lasix -] 40 mg PO DAILY 07/30/17 Atorvastatin Calcium 20 mg PO HS 01/27/18 Sevelamer Carbonate [Renvela -] 1,600 mg PO TID 01/27/18 Pantoprazole Sodium [Protonix -] 40 mg PO BID #28 tablet.ec 01/28/18 This patient is new to me today: No Emergency Visit: Yes ED Registration Date: 01/26/18 Care time: The patient presented to the Emergency Department on the above date and was hospitalized for further evaluation of their emergent condition. Critical Care patient: No - Discharge Referral Referred to [facility] No
[2018-01-29 00:08] LABS: HBSAG SCREEN Negative (Negative); HEP A AB, IGM Negative (Negative); HEP B CORE AB, TOT Negative (Negative)
--- NOTE | 2018-01-29 12:47 | PATH ---
Surgical Pathology Report Patient Name: JUDITH VALLE [facility]. Rec. #: [id number] /Age/Gender: 1965 (Age: 52) / M Account: [id number] Location: [address] [place] [address] Taken: 01/27/2018 Received: 01/28/2018 Reported: 01/29/2018 Physicians: Lorelei Leon M.D. Specimen(s) Received A: BX ANTRUM B: BX GASTRIC ULCER C: BX GE JUNCTION Clinical History GI bleed Postoperative diagnosis: 3 duodenal ulcers, gastric ulcer, esophagitis Final Diagnosis A. STOMACH, ANTRUM, BIOPSY: GASTRIC ANTRAL MUCOSA WITH MILD CHRONIC GASTRITIS. IMMUNOHISTOCHEMICAL STAIN FOR H. PYLORI IS NEGATIVE. B. STOMACH, ULCER, BIOPSY: GASTRIC ANTRAL MUCOSA WITH MILD CHRONIC GASTRITIS AND FOCAL SURFACE EROSION. IMMUNOHISTOCHEMICAL STAIN FOR H. PYLORI IS NEGATIVE. C. GASTROESOPHAGEAL (GE) JUNCTION, BIOPSY: SQUAMOCOLUMNAR MUCOSA WITH MODERATE CHRONIC AND FOCAL ACUTE INFLAMMATION WITH ASSOCIATED ULCERATION OF THE COLUMNAR COMPONENT. NO INTESTINAL METAPLASIA OR DYSPLASIA IDENTIFIED. Electronically Signed Saritha Stephenson M.D. Gross Description A. Received in formalin, labeled "biopsy antrum" are 2 colón, irregular portions of soft tissue measuring 0.3 and 0.4 cm. in greatest dimension. The specimens are submitted in toto in one cassette. B. Received in formalin, labeled "gastric ulcer" are 2 colón, irregular portions of soft tissue measuring 0.1 and 0.3 cm. in greatest dimension. The specimens are submitted in toto in one cassette. C. Received in formalin, labeled "biopsy GE junction" are 3 colón, irregular portions of soft tissue ranging from 0.1-0.4 cm. in greatest dimension. The specimens are submitted in toto in one cassette. /01/28/2018 saudi01/28/2018
== END 2018-01-28 12:34 | disposition home or self-care (01) | DRG 377 ==
LOC: JER 16:08 → JERBED 18:43 → JICU 20:20 → J6S 01-27 16:52
PROVIDERS: ADMIT Internal Medicine; ATTEND Internal Medicine
PROC: 30233N1 Transfusion of Nonautologous Red Blood Cells into Peripheral Vein, Percutaneous Approach (ICD-10-PCS; 2018-01-26)
PROC: 5A1D70Z Performance of Urinary Filtration, Intermittent, Less than 6 Hours Per Day (ICD-10-PCS; 2018-01-26)
PROC: 0DB68ZX Excision of Stomach, Via Natural or Artificial Opening Endoscopic, Diagnostic (ICD-10-PCS; 2018-01-27)
PROC: 0W3P8ZZ Control Bleeding in Gastrointestinal Tract, Via Natural or Artificial Opening Endoscopic (ICD-10-PCS; 2018-01-27)
PROC: 0DB58ZX Excision of Esophagus, Via Natural or Artificial Opening Endoscopic, Diagnostic (ICD-10-PCS; principal; 2018-01-27 11:45)
DX: K26.4 Chronic or unspecified duodenal ulcer with hemorrhage (principal); N18.6 End stage renal disease; I13.2 Hypertensive heart and chronic kidney disease with heart failure and with stage 5 chronic kidney disease, or end stage renal disease; I50.32 Chronic diastolic (congestive) heart failure; D62 Acute posthemorrhagic anemia; E87.5 Hyperkalemia; E11.21 Type 2 diabetes mellitus with diabetic nephropathy; E66.9 Obesity, unspecified; D50.9 Iron deficiency anemia, unspecified; E11.22 Type 2 diabetes mellitus with diabetic chronic kidney disease; Z99.2 Dependence on renal dialysis; R16.0 Hepatomegaly, not elsewhere classified; D64.9 Anemia, unspecified; D63.8 Anemia in other chronic diseases classified elsewhere; Z88.0 Allergy status to penicillin; K25.9 Gastric ulcer, unspecified as acute or chronic, without hemorrhage or perforation; K20.9 Esophagitis, unspecified; K29.60 Other gastritis without bleeding; Z68.30 Body mass index [BMI] 30.0-30.9, adult
CPT/HCPCS: 36415; 36430; 80053; 82272; 82941; 82962; 83690; 83735; 84100; 84484; 85025; 85027; 85610; 86704; 86706; 86708; 86850; 86900; 86901; 86922; 87340; 93005; 93010; 99284-25; J0885; P9038; P9058

== ENCOUNTER 2018-04-06 14:11 | Inpatient (IN) | payer BC ==
--- NOTE | 2018-04-06 14:48 | PDOC ---
Attending Attestation - HPI HPI: 04/06/18 15:59 The patient is a 52-year-old male, with a past medical history of DM, HTN, ESRD (T,Th,S), GI bleed, who presents to the ED with a few days of generalized weakness. The patient was on his way to dialysis today when his legs suddenly gave out and he fell. Bystanders were around to help the patient get back up. EMS was called and the patient was transported to the ED for further evaluation. The patient was last dialyzed on Tuesday 04/03. The patient reports having a fever of 101 last night and a cough. The patient denies any nausea, vomiting, diarrhea, or abdominal pain. Denies any shortness of breath or chest pain. Denies any dysuria, hematuria, frequency, urgency, or hesitancy. Allergies: Penicillins Chauffeur: Dr. Quezada - Physicial Exam PE: 04/06/18 16:07 GENERAL: The patient is in no acute distress. HEAD: Normal with no signs of trauma. EYES:(+)Cataract right eye. PERRLA, EOMI, sclera anicteric. ENT: Ears normal, nares patent, oropharynx clear without exudates. Moist mucous membranes. NECK: Normal range of motion, supple without lymphadenopathy, JVD, or masses. LUNGS: Breath sounds equal, clear to auscultation bilaterally. No wheezes, and no crackles. HEART:(+)Right subclavian catheter is intact, no erythema noted. Regular rate and rhythm, normal S1 and S2 without murmur, rub or gallop. ABDOMEN: Soft, nontender, normoactive bowel sounds. No guarding, no rebound. No masses palpable. EXTREMITIES: Normal range of motion, no edema. No clubbing or cyanosis. No erythema, or tenderness. NEUROLOGICAL: Cranial nerves II through XII grossly intact. Normal speech. No focal neurological deficits. MUSCULOSKELETAL: Back non-tender to palpation, no CVA tenderness SKIN: Warm, Dry, normal turgor, no rashes or lesions noted. <Cindy Bright - Last Filed: 04/06/18 15:59> - Resident Resident Name: Roland Lucia - ED Attending Attestation I have performed the following: I have examined & evaluated the patient, The case was reviewed & discussed with the resident, I agree w/resident's findings & plan, Exceptions are as noted - Medical Decision Making 04/06/18 15:45 Mr Brar is a 52 yo M who presents with a complaint of weakness he has not eaten for the past 5 days No vomiting No diarrhea Fever yesterday - 101 On examination: right subclavian dialysis cathether has been present for the past 1.5 years (+) cough, no sputum, no shortness of breath No abdominal pain RRR CTA B/L EKG: SR, rate of 86 bpm, Left axis deviation, QRS prolonged - 128ms, QTC:512ms, no st elevations or depressions, prominent T waves 04/06/18 15:48 Laboratory Tests 04/06/18 04/06/18 15:00 15:00 WBC 4.3 Hgb 11.4 L Hct 33.9 L D Plt Count 195 D Sodium 119 L* D Potassium 7.2 H* D Chloride 84 L D Carbon Dioxide 19 L D BUN 49 H Creatinine 12.9 H* Random Glucose 93 Creatine Kinase 149 Troponin I < 0.02 D 04/06/18 15:[address] Quezada Will admit to ICU Will dialyze today Calcium gluconate, insulin, dextrose, albuterol given Clinical Impression: Hyponatremia, initial presentation Hyperkalemia, initial presentation Weakness, initial presentation <Sheryl Watson - Last Filed: 04/07/18 10:56> Attestations - Attestations 04/06/18 16:08 Documentation prepared by Cindy Bright, acting as medical claims examiner for Sheryl Watson MD. <Cindy Bright - Last Filed: 04/06/18 15:59> Critical Care Total Critical Care Time (in minutes): 60 Critical Care Statement: The care of this patient involved high complexity decision making to prevent further life threatening deterioration of the patient 's condition and/or to evaluate & treat vital organ system(s) failure or risk of failure. <Sheryl Watson - Last Filed: 04/07/18 10:56>
[2018-04-06 15:07] LABS: BASO % 0.4 % (0-2.0); EOS % 0.9 % (0-4.5); HEMATOCRIT 33.9 % (35.4-49); HEMOGLOBIN 11.4 GM/dL (11.7-16.9); LYMPH % 14.4 % (8-40); MCH 35.3 pg (25.7-33.7); MCHC 33.6 g/dl (32.0-35.9); MEAN CELL VOLUME 105.1 fl (80-96); MONO % 10.8 % (3.8-10.2); NEUT % 73.5 % (42.8-82.8); PLATELET COUNT 195 K/MM3 (134-434); RBC 3.23 M/mm3 (4.00-5.60); RDW 17.2 % (11.9-15.9); WHITE BLOOD COUNT 4.3 K/mm3 (4.0-10.0)
--- NOTE | 2018-04-06 15:30 | PDOC ---
History of Present Illness - General Chief Complaint: Lightheaded Stated Complaint: DIZZINESS Time Seen by Provider: 04/06/18 14:18 History Source: Patient Exam Limitations: No Limitations - History of Present Illness Initial Comments: 04/06/18 15:23 Patient is a 52M with history of DM, ESRD ([facility] dialysis), HTN and GI bleed here today complaining of weakness. He states that his legs gave out on him when he was going to dialysis. He endorses fever to 101 last night. Denies chest pain, shortness of breath, nausea, vomiting. Endorses cough. Patient states that he did not go to dialysis since last Thursday, and has missed some sessions because he has not felt well. Denies history of blood clots, focal weakness. Nephro: Damien Past History - Past Medical History Allergies/Adverse Reactions: Allergies Allergy/AdvReac Type Severity Reaction Status Date / Time Penicillins Allergy Intermediate Verified 01/26/18 16:42 Home Medications: Ambulatory Orders Carvedilol [Coreg] 25 mg PO BID #60 tablet 10/01/16 Calcium Acetate 670 mg PO TID 05/05/17 Valsartan [Diovan] 160 mg PO DAILY 05/05/17 Furosemide [Lasix -] 40 mg PO DAILY 07/30/17 Atorvastatin Calcium 20 mg PO HS 01/27/18 Sevelamer Carbonate [Renvela -] 1,600 mg PO TID 01/27/18 Anemia: Yes CVA: No COPD: No Diabetes: Yes (DIET CONTROLLED) Dialysis: Yes (t,,sa) Disorders: Yes (RENAL INSUFFICIENCY) HTN: Yes Hypercholesterolemia: No - Immunization History Immunization Up to Date: Yes - Suicide/Smoking/Psychosocial Hx Smoking Status: No Smoking History: Never smoked Have you smoked in the past 12 months: No Number of Cigarettes Smoked Daily: 0 Hx Alcohol Use: Yes (2 glasses wine/day) Drug/Substance Use Hx: No Substance Use Type: Alcohol Hx Substance Use Treatment: No Review of Systems - Review of Systems Comments:: 04/06/18 15:25 GENERAL/CONSTITUTIONAL: +fever +chills. +weakness. HEAD, EYES, EARS, NOSE AND THROAT: No change in vision.No sore throat. CARDIOVASCULAR: No chest pain or shortness of breath RESPIRATORY: +cough. No wheezing, or hemoptysis. GASTROINTESTINAL: No nausea, vomiting, diarrhea or constipation. GENITOURINARY: No dysuria, frequency, or change in urination. MUSCULOSKELETAL: No joint or muscle swelling or pain. No neck or back pain. SKIN: No rash NEUROLOGIC: No headache, vertigo, loss of consciousness, or change in strength/ sensation. ENDOCRINE: No increased thirst. No abnormal weight change HEMATOLOGIC/LYMPHATIC: No anemia, or history of blood clots. ALLERGIC/IMMUNOLOGIC: No hives or skin allergy. *Physical Exam - Vital Signs Last Vital Signs Temp Pulse Resp BP Pulse Ox 98.5 F 86 20 174/97 99 04/06/18 14:15 04/06/18 14:15 04/06/18 14:15 04/06/18 14:15 04/06/18 14:15 - Physical Exam Comments: 04/06/18 15:25 GENERAL: Awake, alert, and fully oriented, in no acute distress HEAD: No signs of trauma, normocephalic, atraumatic EYES: PERRLA, EOMI, sclera anicteric, conjunctiva clear ENT: Auricles normal inspection, hearing grossly normal, nares patent, oropharynx clear without exudates. Moist mucosa NECK: Normal ROM, supple, no lymphadenopathy, JVD, or masses LUNGS: No distress, speaks full sentences, clear to auscultation bilaterally HEART: Regular rate and rhythm, normal S1 and S2, no murmurs, rubs or gallops, peripheral pulses normal and equal bilaterally. ABDOMEN: Soft, nontender, normoactive bowel sounds. No guarding, no rebound. No masses EXTREMITIES: Normal inspection, Normal range of motion, 1+ pitting edema. No clubbing or cyanosis. NEUROLOGICAL: Cranial nerves II through XII grossly intact. Normal speech, no focal sensorimotor deficits SKIN: Warm, Dry, normal turgor, no rashes or lesions noted. ED Treatment Course - LABORATORY CBC & Chemistry Diagram: 04/06/18 15:00 04/06/18 15:00 - ADDITIONAL ORDERS Additional order review: 04/06/18 15:00 RBC 3.23 L MCV 105.1 H MCHC 33.6 RDW 17.2 H MPV 8.0 D Neutrophils % 73.5 Lymphocytes % 14.4 D Monocytes % 10.8 H Eosinophils % 0.9 Basophils % 0.4 - RADIOLOGY Radiology Studies Ordered: Category Date Time Status CHEST X-RAY PORTABLE* [RAD] Stat Radiology 04/06/18 14:27 Taken Medical Decision Making - Medical Decision Making 04/06/18 15:26 Patient is 52M with history of ESRD, HTN, DM, GI bleed here today complaining of near syncope. Vital signs stable and normal. Nontender abdomen, normal lung sounds. IV placed, labs drawn, placed on monitor. DDx includes, but is not limited to: uremia, hyperkalemia, other metabolic derangement. EKG shows sinus rhythm with 1st degree AV block ([place] 220), left axis deviation, inverted t waves in I and aVL. No st elevations/depressions. No peaked t waves. QTc prolonged to 512. QRS to 128. 04/06/18 15:33 CXR shows no acute cardiopulmonary process. 04/06/18 16:05 Laboratory Tests 04/06/18 15:00 Sodium 119 L* D Potassium 7.2 H* D Chloride 84 L D Creatinine 12.9 H* K to 7.2. Na 119, Cr 12.9. Given albuterol, insulin/d50, calcium gluconate. 04/06/18 16:07 Dr Carmichael accepted admission to ICU for dialysis. 04/06/18 17:48 Called to patient's room for diaphoresis. Repeat EKG looks improved from prior EKG with narrower QRS but longer QTc. Glucose 24. Given D50. Patient to go to ICU. *DC/Admit/Observation/Transfer Diagnosis at time of Disposition: Hyperkalemia - Discharge Dispostion Condition at time of disposition: Critical Decision to Admit order: Yes - Referrals - Patient Instructions - Post Discharge Activity
[2018-04-06 15:32] LABS: ALBUMIN 3.1 g/dl (3.4-5.0); ALK PHOS 623 U/L (45-117); ANION GAP 16 (8-16); BILIRUBIN,TOTAL 0.6 mg/dL (0.2-1.0); BLOOD UREA NITROGEN 49 mg/dL (7-18); CALCIUM 7.1 mg/dL (8.5-10.1); CHLORIDE 84 mmol/L (98-107); CO2 19 mmol/L (21-32); GLUCOSE,RANDOM 93 mg/dL (74-106); MAGNESIUM 1.7 mg/dL (1.8-2.4); SGOT/AST 91 U/L (15-37); SGPT/ALT 50 U/L (12-78); TOT PROT 7.6 g/dl (6.4-8.2)
[2018-04-06 15:41] LABS: CREATININE 12.9 mg/dL (0.7-1.3); SODIUM 119 mmol/L (136-145)
[2018-04-06] MEDS ORDERED: CALCIUM GLUCONATE 10% - 1,000 MG/10 ML VIAL IVPUSH ONE (15:41)
[2018-04-06] MEDS ORDERED: ALBUTEROL SO4 0.042% IH SOL 1.25 MG/3 ML VIAL.NEB NEB ONE (15:41)
[2018-04-06] MEDS ORDERED: INSULIN REGULAR HUMAN 100 UNITS/ML *VIAL IVPUSH ONE (15:41)
[2018-04-06] MEDS ORDERED: DEXTROSE 50%-WATER - 25 GM/50 ML VIAL IVPUSH ONE ×2 (15:41→17:48)
[2018-04-06 15:42] LABS: POTASSIUM 7.2 mmol/L (3.5-5.1)
[2018-04-06] MEDS ORDERED: ALBUTEROL SO4 0.083% IH SOL 2.5 MG/3 ML VIAL.NEB. NEB ONE (15:49)
[2018-04-06] MEDS ORDERED: DEXTROSE 50%-WATER 25 GM/50 ML DISP.SYRIN ONE ×2 (15:50→17:48)
[2018-04-06] MEDS ORDERED: CALCIUM GLUCONATE 10% - 1,000 MG/10 ML VIAL ONE (15:50)
[2018-04-06] MEDS ORDERED: INSULIN REGULAR HUMAN 100 UNITS/ML *VIAL ONE (15:51)
[2018-04-06 15:53] LABS: INR 1.03 (0.82-1.09); PROTHROMBIN TIME (PATIENT) 11.6 SEC (9.7-13.0)
--- NOTE | 2018-04-06 17:09 | HP ---
CHIEF COMPLAINT: Weakness PCP: Dr. Mehdi Becerra HISTORY OF PRESENT ILLNESS: 52yo M with significant history of ESRD (), DM, and HTN who presents to the ER today due to feeling weak and having his legs "give out from under him." Pt reports he missed his dialysis Thursday because he was not feeling well and when he was walking today his legs collapsed. Pt endorses a nonproductive cough recently and feeling warm, however has never taken his temperature. He has a known history of noncompliance and has had to have emergent dialysis before. Pt denies any headache, blurred vision (in L eye), lightheadedness/dizziness, rhinorrhea, ear pain, dysphagia, shortness of breath , CP/discomfort, palpitation, abdominal pain. 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 PAST SURGICAL HISTORY: Prior cataracts surgery Social History: Smoking: Denies Alcohol: Denies Drugs: Denies Family History: Mother - DM Allergies Penicillins Allergy (Intermediate, Verified 01/26/18 16:42) HOME MEDICATIONS: Home Medications Medication Instructions Recorded Carvedilol [Coreg] 25 mg PO BID #60 tablet 10/01/16 Calcium Acetate 670 mg PO TID 05/05/17 Valsartan [Diovan] 160 mg PO DAILY 05/05/17 Furosemide [Lasix -] 40 mg PO DAILY 07/30/17 Atorvastatin Calcium 20 mg PO HS 01/27/18 Sevelamer Carbonate [Renvela -] 1,600 mg PO TID 01/27/18 REVIEW OF SYSTEMS CONSTITUTIONAL: Present: Generalized weakness Absent: fever, chills, diaphoresis, malaise, loss of appetite, weight change HEENT: Absent: rhinorrhea, nasal congestion, throat pain, throat swelling, difficulty swallowing, ear pain, new visual changes CARDIOVASCULAR: Absent: chest pain, syncope, palpitations, irregular heart rate, lightheadedness , peripheral edema RESPIRATORY: Present: Nonproductive cough Absent: shortness of breath, dyspnea with exertion, orthopnea, wheezing, stridor , hemoptysis GASTROINTESTINAL: Absent: abdominal pain, abdominal distension, nausea, vomiting, diarrhea, constipation, melena, hematochezia GENITOURINARY: Absent: dysuria, frequency, urgency, hesitancy, hematuria, flank pain SKIN: Absent: rash, itching, pallor NEUROLOGIC: Absent: headache, focal weakness or paresthesias, dizziness, unsteady gait, seizure, mental status changes, bladder or bowel incontinence PHYSICAL EXAMINATION Vital Signs - 24 hr 04/06/18 14:15 Temperature 98.5 F Pulse Rate 86 Respiratory 20 Rate Blood Pressure 174/97 O2 Sat by Pulse 99 Oximetry (%) GENERAL: NAD, Awake, alert, and fully oriented HEENT: NC/AT, EOMI, MARCIO, R eye clouding with R sclera injections; no purulence noted, MMM NECK: No JVD LUNGS: Crackles noted bilaterally. No wheezes. No accessory muscle use. HEART: RRR, normal S1 and S2 without murmur ABDOMEN: Soft, normoactive BS, NT/ND, no guarding. No hepatomegaly MUSCULOSKELETAL:No CVA tenderness. EXTREMITIES: 2+ DP pulses, warm, well-perfused. No peripheral edema. PSYCHIATRIC: Cooperative. Good eye contact. Appropriate mood and affect. SKIN: Warm, dry, no rashes or lesions noted Laboratory Results - last 24 hr 04/06/18 04/06/18 04/06/18 15:00 15:00 15:00 WBC 4.3 RBC 3.23 L Hgb 11.4 L Hct 33.9 L D MCV 105.1 H MCH 35.3 H MCHC 33.6 RDW 17.2 H Plt Count 195 D MPV 8.0 D Absolute Neuts (auto) 3.2 Neutrophils % 73.5 Lymphocytes % 14.4 D Monocytes % 10.8 H Eosinophils % 0.9 Basophils % 0.4 Nucleated RBC % 0 PT with INR 11.60 INR 1.03 Sodium 119 L* D Potassium 7.2 H* D Chloride 84 L D Carbon Dioxide 19 L D Anion Gap 16 BUN 49 H Creatinine 12.9 H* Creat Clearance w eGFR 4.14 Random Glucose 93 Calcium 7.1 L Magnesium 1.7 L Total Bilirubin 0.6 AST 91 H D ALT 50 D Alkaline Phosphatase 623 H Creatine Kinase 149 Troponin I < 0.02 D Total Protein 7.6 Albumin 3.1 L ASSESSMENT/PLAN: 1) Hyponatremia --Na 119 w/o mental status changes --2/2 to missed dialysis sessions --Nephrology on board --Emergent dialysis is being arranged now --BMP rpt after dialysis 2) Hypernatremia --7.2 w/ EKG changes noted above --s/p CaGluconate x1, Albuterol dose x1, and D50/Insulin 10U cocktail --Dialysis as above 3) ESRD --Schedule T//Sat --Pt continually refuses to received AVF creation --Dialysis catheter in place 4) HTN Continue home dose medications tomorrow 5) Normocytic anemia --Chronic; anemia of chronic disease --Monitor CBC FEN: Fluids: Avoid Electrolyte abnormalities as above Nutrition: Renal/sodium/diabetic PPX: DVT - Heparin SQ Dispo: ICU admit due to inability to dialyze on the telemetry floors? Case discussed with Dr. Jany Robb, DO - IM PGY-1 Visit type - Emergency Visit Emergency Visit: Yes ED Registration Date: 04/06/18 Care time: The patient presented to the Emergency Department on the above date and was hospitalized for further evaluation of their emergent condition. - New Patient This patient is new to me today: Yes Date on this admission: 04/06/18 - Critical Care Critical Care patient: No Hospitalist Screening - Colonoscopy Questionnaire Colonoscopy Questionnaire: Colonoscopy Questionnaire - Patient: 50 - 75 years old and never had a screening colonoscopy: Unknown History of colon or rectal polyps, or CA: Unknown History of IBD, Crohn's disease or UC: Unknown History of abdominal radiation therapy as a child: Unknown - Relative: 1 with colon or rectal CA, or polyps at age 60 or younger: Unknown Colon or rectal CA diagnosed at age 45 or younger: Unknown Multiple relatives with colon or rectal CA: Unknown - Outcome: Screening Result: Negative Screen
--- NOTE | 2018-04-06 17:19 | CONSULT ---
Consult Consult Specialty:: Nephrology Reason for Consultation:: ESRD - History of Present Illness Chief Complaint: generalized weakness, fevers and chills History of Present Illness: Pt is a 52 year old male with pmhx of DM, ESRD, HTN, anemia, non compliance and GI bleed who presents to the ER with weakness and fatigue. He often skips and cuts his HD treatments. He was last dialyzed on Thursday. He refused to go to HD on Thursday. He also called and refused to go today. He denies chest pain or palpitations. He is awake and alert. He does complain of cough that is non productive. He denies blood in the stool. He is awake and able to give history. He has a permacath for HD and is refusing a fistula. - History Source History Provided By: Patient, Medical Record - Past Medical History Cardio/Vascular: Yes: HTN, Hyperlipdemia Renal/: Yes: Renal Failure, Renal Inusuff, Hemodialysis Endocrine: Yes: Diabetes Mellitus - Alcohol/Substance Use Hx Alcohol Use: Yes (2 glasses wine/day) History of Substance Use: reports: None - Smoking History Smoking history: Never smoked Have you smoked in the past 12 months: No Aproximately how many cigarettes per day: 0 - Social History ADL: Independent Home Medications - Allergies Allergies/Adverse Reactions: Allergies Allergy/AdvReac Type Severity Reaction Status Date / Time Penicillins Allergy Intermediate Verified 01/26/18 16:42 - Home Medications Home Medications: Ambulatory Orders Carvedilol [Coreg] 25 mg PO BID #60 tablet 10/01/16 Calcium Acetate 670 mg PO TID 05/05/17 Valsartan [Diovan] 160 mg PO DAILY 05/05/17 Furosemide [Lasix -] 40 mg PO DAILY 07/30/17 Atorvastatin Calcium 20 mg PO HS 01/27/18 Sevelamer Carbonate [Renvela -] 1,600 mg PO TID 01/27/18 Family Disease History - Family Disease History Family Disease History: Diabetes: Brother (CVA), Heart Disease: Father Review of Systems - Review of Systems Constitutional: reports: Malaise Eyes: reports: No Symptoms HENT: reports: No Symptoms Neck: reports: No Symptoms Cardiovascular: reports: Edema Respiratory: reports: Cough, SOB, SOB on Exertion Gastrointestinal: reports: No Symptoms Genitourinary: reports: No Symptoms Musculoskeletal: reports: No Symptoms Integumentary: reports: No Symptoms Neurological: reports: No Symptoms Endocrine: reports: No Symptoms Hematology/Lymphatic: reports: No Symptoms Psychiatric: reports: No Symptoms Physical Exam Vital Signs: Vital Signs Temperature 98.5 F 04/06/18 14:15 Pulse Rate 86 04/06/18 14:15 Respiratory Rate 20 04/06/18 14:15 Blood Pressure 174/97 04/06/18 14:15 O2 Sat by Pulse Oximetry (%) 99 04/06/18 14:15 Constitutional: Yes: Calm Eyes: Yes: Conjunctiva Clear HENT: Yes: Atraumatic Neck: Yes: Supple Cardiovascular: Yes: S1, S2 Respiratory: Yes: CTA Bilaterally Gastrointestinal: Yes: Soft Renal/: Yes: WNL Musculoskeletal: Yes: WNL Edema: Yes Edema: LLE: 1+, RLE: 1+ Neurological: Yes: Oriented Psychiatric: Yes: Oriented Labs: CBC, BMP 04/06/18 15:00 04/06/18 15:00 Laboratory Tests 04/06/18 04/06/18 04/06/18 15:00 15:00 15:00 WBC 4.3 Hgb 11.4 L Plt Count 195 D INR 1.03 Sodium 119 L* D Potassium 7.2 H* D Chloride 84 L D Carbon Dioxide 19 L D Anion Gap 16 BUN 49 H Creatinine 12.9 H* Random Glucose 93 Albumin 3.1 L Imaging - Results Chest X-ray: Report Reviewed Problem List - Problems (1) Hyponatremia Code(s): E87.1 - HYPO-OSMOLALITY AND HYPONATREMIA (2) Hyperkalemia Code(s): E87.5 - HYPERKALEMIA (3) Anemia Code(s): D64.9 - ANEMIA, UNSPECIFIED Qualifiers: Anemia type: due to chronic kidney disease Chronic kidney disease stage: on chronic dialysis Qualified Code(s): N18.6 - End stage renal disease; D63.1 - Anemia in chronic kidney disease; D63.1 - Anemia in chronic kidney disease; Z99.2 - Dependence on renal dialysis; Z99.2 - Dependence on renal dialysis; Z99.2 - Dependence on renal dialysis; Z99.2 - Dependence on renal dialysis (4) Diabetes Code(s): E11.9 - TYPE 2 DIABETES MELLITUS WITHOUT COMPLICATIONS Qualifiers: (5) ESRD (end stage renal disease) Code(s): N18.6 - END STAGE RENAL DISEASE Assessment/Plan Current Medications Generic Name Dose Route Start Last Admin Trade Name Freq PRN Reason Stop Dose Admin Chlorhexidine Gluconate 1 applic 04/06/18 22:00 Hibiclens For Decolonization - TP HS KRISTEN Heparin Sodium (Porcine) 5,000 unit 04/06/18 22:00 Heparin - SQ TID KRISTEN Mupirocin 1 applic 04/06/18 22:00 Bactroban Ointment (For Decolonization) - NS 04/11/18 21:59 BID KRISTEN Impression 1. ESRD 2. DM 3. hyponatremia 4. HTN 5. obesity 6. anemia 7. iron deficiency 8. CHF 9. anemia 10. hyperkalemia 11. liver mass 12. hx GI bleed 13. diabetic nephropathy 14. non compliance with HD treatment regimen Plan - will arrange for urgent HD at bedside - admit pt to ICU - electrolytes abnormalities likely secondary to non compliance - send cultures - discussed with ER team - discussed with HD unit - keep patient on monitor - monitor lytes - will order post HD lytes, please follow - will follow Dr Quezada
[2018-04-06] MEDS ORDERED: SODIUM CHLORIDE 250 ML IV PRN (17:25)
[2018-04-06] MEDS ORDERED: HEMOQUE TEST 1 EACH EACH ONE (18:02)
--- NOTE | 2018-04-06 20:08 | PN ---
Teaching Attending Note Name of Resident: Dedrick Robb ATTENDING PHYSICIAN STATEMENT I saw and evaluated the patient. I reviewed the resident's note and discussed the case with the resident. I agree with the resident's findings and plan as documented. SUBJECTIVE: patient c/o feeling weak. OBJECTIVE: Vital Signs Temperature 97.7 F 04/06/18 18:25 Pulse Rate 90 04/06/18 20:00 Respiratory Rate 18 04/06/18 20:00 Blood Pressure 156/81 04/06/18 20:00 O2 Sat by Pulse Oximetry (%) 99 04/06/18 18:35 CBCD WBC 4.3 K/mm3 (4.0-10.0) 04/06/18 15:00 RBC 3.23 M/mm3 (4.00-5.60) L 04/06/18 15:00 Hgb 11.4 GM/dL (11.7-16.9) L 04/06/18 15:00 Hct 33.9 % (35.4-49) L D 04/06/18 15:00 MCV 105.1 fl (80-96) H 04/06/18 15:00 MCHC 33.6 g/dl (32.0-35.9) 04/06/18 15:00 RDW 17.2 % (11.9-15.9) H 04/06/18 15:00 Plt Count 195 K/MM3 (134-434) D 04/06/18 15:00 MPV 8.0 fl (7.5-11.1) D 04/06/18 15:00 CMP Sodium 119 mmol/L (136-145) L* D 04/06/18 15:00 Potassium 7.2 mmol/L (3.5-5.1) H* D 04/06/18 15:00 Chloride 84 mmol/L (98-107) L D 04/06/18 15:00 Carbon Dioxide 19 mmol/L (21-32) L D 04/06/18 15:00 Anion Gap 16 (8-16) 04/06/18 15:00 BUN 49 mg/dL (7-18) H 04/06/18 15:00 Creatinine 12.9 mg/dL (0.7-1.3) H* 04/06/18 15:00 Creat Clearance w eGFR 4.14 (>60) 04/06/18 15:00 Random Glucose 93 mg/dL (74-106) 04/06/18 15:00 Calcium 7.1 mg/dL (8.5-10.1) L 04/06/18 15:00 Total Bilirubin 0.6 mg/dL (0.2-1.0) 04/06/18 15:00 AST 91 U/L (15-37) H D 04/06/18 15:00 ALT 50 U/L (12-78) D 04/06/18 15:00 Alkaline Phosphatase 623 U/L (45-117) H 04/06/18 15:00 Total Protein 7.6 g/dl (6.4-8.2) 04/06/18 15:00 Albumin 3.1 g/dl (3.4-5.0) L 04/06/18 15:00 CARDIAC ENZYMES Creatine Kinase 149 IU/L (39-308) 04/06/18 15:00 Troponin I < 0.02 ng/ml (0.00-0.05) D 04/06/18 15:00 Current Medications Generic Name Dose Route Start Last Admin Trade Name Freq PRN Reason Stop Dose Admin Chlorhexidine Gluconate 1 applic 04/06/18 22:00 Hibiclens For Decolonization - TP HS [facility] Heparin Sodium (Porcine) 5,000 unit 04/06/18 22:00 Heparin - SQ TID [facility] Sodium Chloride 250 mls @ 3,000 mls/hr 04/06/18 17:25 Normal Saline - IV 04/07/18 17:25 PRN PRN Hypotension during Dialysis Mupirocin 1 applic 04/06/18 22:00 Bactroban Ointment (For Decolonization) - NS 04/11/18 21:59 BID [facility] Home Medications Medication Instructions Recorded Carvedilol [Coreg] 25 mg PO BID #60 tablet 10/01/16 Calcium Acetate 670 mg PO TID 05/05/17 Valsartan [Diovan] 160 mg PO DAILY 05/05/17 Furosemide [Lasix -] 40 mg PO DAILY 07/30/17 Atorvastatin Calcium 20 mg PO HS 01/27/18 Sevelamer Carbonate [Renvela -] 1,600 mg PO TID 01/27/18 PE: per resident's note A/P: Patient is a 52yo M with significant PMHx of ESRD (T//Thu), DM, and HTN who presents to the ER today due to feeling weak and having his legs "give out , stated that he missed his dialysis Thursday because he was not feeling. # Acute Hyponatremia of 119, with Potassium of 7.2 no change of mental status , emergent dialysis is being arranged by director adult patient is a noncompliant patient. # acute Hyperkalemia s/p CaGluconate x1, Albuterol dose x1, and D50/Insulin 10U cocktail in ED, with EKG changes # ESRD on HM //Thu # HTN Continue home dose medications tomorrow # Normocytic anemia ; anemia of chronic disease # non compliance with HD treatment regimen will have dialysis in the ICU
[2018-04-06] MEDS: HEPARIN NA (PORCINE) 5,000 UNITS/ML 1ML VIAL SQ SCH (21:24)
--- NOTE | 2018-04-06 21:25 | CONSULT ---
Consult - Past Medical History Cardio/Vascular: Yes: HTN, Hyperlipdemia Renal/: Yes: Renal Failure, Renal Inusuff, Hemodialysis Endocrine: Yes: Diabetes Mellitus - Alcohol/Substance Use Hx Alcohol Use: Yes (2 glasses wine/day) History of Substance Use: reports: None - Smoking History Smoking history: Never smoked Have you smoked in the past 12 months: No Aproximately how many cigarettes per day: 0 - Social History ADL: Independent Home Medications - Allergies Allergies/Adverse Reactions: Allergies Allergy/AdvReac Type Severity Reaction Status Date / Time Penicillins Allergy Intermediate Verified 01/26/18 16:42 - Home Medications Home Medications: Ambulatory Orders Carvedilol [Coreg] 25 mg PO BID #60 tablet 10/01/16 Calcium Acetate 670 mg PO TID 05/05/17 Valsartan [Diovan] 160 mg PO DAILY 05/05/17 Furosemide [Lasix -] 40 mg PO DAILY 07/30/17 Atorvastatin Calcium 20 mg PO HS 01/27/18 Sevelamer Carbonate [Renvela -] 1,600 mg PO TID 01/27/18 Family Disease History - Family Disease History Family Disease History: Diabetes: Brother (CVA), Heart Disease: Father Physical Exam Vital Signs: Vital Signs Temperature 97.7 F 04/06/18 18:25 Pulse Rate 91 H 04/06/18 21:00 Respiratory Rate 18 04/06/18 21:00 Blood Pressure 169/72 04/06/18 21:00 O2 Sat by Pulse Oximetry (%) 99 04/06/18 18:35 Labs: CBC, BMP 04/06/18 15:00 04/06/18 15:00
--- NOTE | 2018-04-06 21:25 | CONSULT ---
Consult Consult Specialty:: Pulm/CCM Reason for Consultation:: Metabolic disarray - History of Present Illness Chief Complaint: Weakness History of Present Illness: 52 yom with pmhx of DM, ESRD on TIW iHD( non-compliant to sessions), HTN, anemia , and GI bleed who presents to the ER with weakness and fatigue. He was last dialyzed on Thursday. In the ED VS T 98.5, HR 86, BP 174/97, O2 sat 99% on room air. Labs notable for Na 119, K7.2, BUN/creat 49/12.9, WBC 4.2, Trop<0.02. ECG with 1st degree AV block and long QTC. CXR showed no infiltrates or acute disease. He denied chest pain, palpitations or bleeding. His hyperkalemia was treated medically and he was transferred to ICU for emergent HD. In ICU in NAD, HR 93, BP 195/93. iHD initiated via tunnelled cath. Pt complaining of pain and discomfort in right eye. Rt sclera injected, no drainage. - Past Medical History Cardio/Vascular: Yes: HTN, Hyperlipdemia Renal/: Yes: Renal Failure, Renal Inusuff, Hemodialysis Endocrine: Yes: Diabetes Mellitus - Alcohol/Substance Use Hx Alcohol Use: Yes (2 glasses wine/day) History of Substance Use: reports: None - Smoking History Smoking history: Never smoked Have you smoked in the past 12 months: No Aproximately how many cigarettes per day: 0 - Social History ADL: Independent Home Medications - Allergies Allergies/Adverse Reactions: Allergies Allergy/AdvReac Type Severity Reaction Status Date / Time Penicillins Allergy Intermediate Verified 01/26/18 16:42 - Home Medications Home Medications: Ambulatory Orders Carvedilol [Coreg] 25 mg PO BID #60 tablet 10/01/16 Calcium Acetate 670 mg PO TID 05/05/17 Valsartan [Diovan] 160 mg PO DAILY 05/05/17 Furosemide [Lasix -] 40 mg PO DAILY 07/30/17 Atorvastatin Calcium 20 mg PO HS 01/27/18 Sevelamer Carbonate [Renvela -] 1,600 mg PO TID 01/27/18 Family Disease History - Family Disease History Family Disease History: Diabetes: Brother (CVA), Heart Disease: Father Review of Systems - Review of Systems Constitutional: reports: Weakness Eyes: reports: No Symptoms HENT: reports: No Symptoms Neck: reports: No Symptoms Cardiovascular: reports: No Symptoms Respiratory: reports: No Symptoms Gastrointestinal: reports: No Symptoms Genitourinary: reports: No Symptoms Musculoskeletal: reports: No Symptoms Neurological: reports: No Symptoms Endocrine: reports: No Symptoms Hematology/Lymphatic: reports: No Symptoms Psychiatric: reports: No Symptoms Physical Exam Vital Signs: Vital Signs Temperature 97.7 F 04/06/18 18:25 Pulse Rate 91 H 04/06/18 21:00 Respiratory Rate 18 04/06/18 21:00 Blood Pressure 169/72 04/06/18 21:00 O2 Sat by Pulse Oximetry (%) 99 04/06/18 18:35 Constitutional: Yes: Well Nourished, No Distress Eyes: Yes: Other (Rt eye blind, sclera injected, Lt eye pupil round and reactive ) HENT: Yes: Atraumatic, Normocephalic Neck: Yes: Tenderness Cardiovascular: Yes: Regular Rate and Rhythm, S1, S2 Respiratory: Yes: Regular, CTA Bilaterally Gastrointestinal: Yes: Normal Bowel Sounds, Soft, Abdomen, Obese Renal/: Yes: WNL Extremities: Yes: WNL Edema: No Peripheral Pulses WNL: Yes Wound/Incision: Yes: Other (Rt chest tunnelled HD cath intact.) Neurological: Yes: Alert, Oriented ...Motor Strength: WNL Psychiatric: Yes: Alert, Oriented Labs: CBC, BMP 04/06/18 15:00 04/06/18 15:00 CBC,CMP WBC 4.3 K/mm3 (4.0-10.0) 04/06/18 15:00 RBC 3.23 M/mm3 (4.00-5.60) L 04/06/18 15:00 Hgb 11.4 GM/dL (11.7-16.9) L 04/06/18 15:00 Hct 33.9 % (35.4-49) L D 04/06/18 15:00 MCV 105.1 fl (80-96) H 04/06/18 15:00 MCH 35.3 pg (25.7-33.7) H 04/06/18 15:00 MCHC 33.6 g/dl (32.0-35.9) 04/06/18 15:00 RDW 17.2 % (11.9-15.9) H 04/06/18 15:00 Plt Count 195 K/MM3 (134-434) D 04/06/18 15:00 MPV 8.0 fl (7.5-11.1) D 04/06/18 15:00 Absolute Neuts (auto) 3.2 # 04/06/18 15:00 Neutrophils % 73.5 % (42.8-82.8) 04/06/18 15:00 Lymphocytes % 14.4 % (8-40) D 04/06/18 15:00 Monocytes % 10.8 % (3.8-10.2) H 04/06/18 15:00 Eosinophils % 0.9 % (0-4.5) 04/06/18 15:00 Basophils % 0.4 % (0-2.0) 04/06/18 15:00 Nucleated RBC % 0 % (0-0) 04/06/18 15:00 Sodium 119 mmol/L (136-145) L* D 04/06/18 15:00 Potassium 7.2 mmol/L (3.5-5.1) H* D 04/06/18 15:00 Chloride 84 mmol/L (98-107) L D 04/06/18 15:00 Carbon Dioxide 19 mmol/L (21-32) L D 04/06/18 15:00 Anion Gap 16 (8-16) 04/06/18 15:00 BUN 49 mg/dL (7-18) H 04/06/18 15:00 Creatinine 12.9 mg/dL (0.7-1.3) H* 04/06/18 15:00 Creat Clearance w eGFR 4.14 (>60) 04/06/18 15:00 POC Glucometer 127.49387 UNITS (80-120) 04/06/18 18:05 Random Glucose 93 mg/dL (74-106) 04/06/18 15:00 Calcium 7.1 mg/dL (8.5-10.1) L 04/06/18 15:00 Magnesium 1.7 mg/dL (1.8-2.4) L 04/06/18 15:00 Total Bilirubin 0.6 mg/dL (0.2-1.0) 04/06/18 15:00 AST 91 U/L (15-37) H D 04/06/18 15:00 ALT 50 U/L (12-78) D 04/06/18 15:00 Alkaline Phosphatase 623 U/L (45-117) H 04/06/18 15:00 Creatine Kinase 149 IU/L (39-308) 04/06/18 15:00 Troponin I < 0.02 ng/ml (0.00-0.05) D 04/06/18 15:00 Total Protein 7.6 g/dl (6.4-8.2) 04/06/18 15:00 Albumin 3.1 g/dl (3.4-5.0) L 04/06/18 15:00 Current Medications Atorvastatin Calcium (Lipitor -) 20 mg PO HS [facility] Last Admin: 04/06/18 21:24 Dose: 20 mg Carvedilol (Coreg -) 25 mg PO BID [facility] Chlorhexidine Gluconate (Hibiclens For Decolonization -) 1 applic TP HS [facility] Last Admin: 04/06/18 21:25 Dose: 1 applic Heparin Sodium (Porcine) (Heparin -) 5,000 unit SQ TID [facility] Last Admin: 04/06/18 21:24 Dose: 5,000 unit Sodium Chloride (Normal Saline -) 250 mls @ 3,000 mls/hr IV PRN PRN PRN Reason: Hypotension during Dialysis Stop: 04/07/18 17:25 Mupirocin (Bactroban Ointment (For Decolonization) -) 1 applic NS BID [facility] Stop: 04/11/18 21:59 Last Admin: 04/06/18 21:26 Dose: 1 applic Valsartan (Diovan -) 160 mg PO DAILY [facility] Intake & Output 04/03/18 04/04/18 04/05/18 04/06/18 23:59 23:59 23:59 23:59 Weight 92.1 kg Problem List - Problems (1) Hyperkalemia Code(s): E87.5 - HYPERKALEMIA (2) Hyponatremia Code(s): E87.1 - HYPO-OSMOLALITY AND HYPONATREMIA (3) Anemia Code(s): D64.9 - ANEMIA, UNSPECIFIED Qualifiers: Anemia type: due to chronic kidney disease Chronic kidney disease stage: on chronic dialysis Qualified Code(s): N18.6 - End stage renal disease; D63.1 - Anemia in chronic kidney disease; D63.1 - Anemia in chronic kidney disease; Z99.2 - Dependence on renal dialysis; Z99.2 - Dependence on renal dialysis; Z99.2 - Dependence on renal dialysis; Z99.2 - Dependence on renal dialysis (4) Diabetes Code(s): E11.9 - TYPE 2 DIABETES MELLITUS WITHOUT COMPLICATIONS Qualifiers: (5) Dialysis patient Code(s): Z99.2 - DEPENDENCE ON RENAL DIALYSIS (6) ESRD (end stage renal disease) Code(s): N18.6 - END STAGE RENAL DISEASE Assessment/Plan 52yom with PMHx of DM, HTN, ESRD on T,Syl[place], Sat HD schedule wdmitted to ICU with metabolic disarray, hyperkalemia in the setting of missed HD sessions. Plan: -Nephrology referral -Emergent HD -BMP post HD and in am. -Cont home antihypertensives -ICU monitor for ectopy -ECG -Natural tears for rt eye -optho consult -Reinforce iHD compliance and risks of non-compliance -DVT/GI prophylaxis SPENCER Pfeiffer CC time 35mins
[2018-04-06] MEDS: MUPIROCIN 2% TOPICAL OINTMENT FOR DECOLONIZATION NS SCH (21:26)
[2018-04-06 21:57] LABS: ANION GAP 11 (8-16); BLOOD UREA NITROGEN 17 mg/dL (7-18); CALCIUM 7.3 mg/dL (8.5-10.1); CHLORIDE 95 mmol/L (98-107); CO2 29 mmol/L (21-32); CREATININE 4.5 mg/dL (0.7-1.3); GLUCOSE,RANDOM 135 mg/dL (74-106); POTASSIUM 3.6 mmol/L (3.5-5.1); SODIUM 135 mmol/L (136-145)
[2018-04-06] MEDS ORDERED: hydrALAZINE HCL 20 MG/ML VIAL IVPUSH ONE (21:57)
[2018-04-06] MEDS ORDERED: CHLORHEXIDINE GLUCONATE 4% CLEANSER FOR DECOLONIZATION TP SCH (22:00)
[2018-04-06] MEDS ORDERED: ATORVASTATIN CA 20 MG TABLET (FP) PO SCH (22:00)
[2018-04-06] MEDS ORDERED: CARVEDILOL 25 MG TABLET (FP) PO ONE (23:15)
[2018-04-07] MEDS: HEPARIN NA (PORCINE) 5,000 UNITS/ML 1ML VIAL SQ SCH ×3 (06:15→22:01)
[2018-04-07 06:19] LABS: HEMATOCRIT 33.2 % (35.4-49); HEMOGLOBIN 11.4 GM/dL (11.7-16.9); MCH 35.8 pg (25.7-33.7); MCHC 34.4 g/dl (32.0-35.9); MEAN PLT VOLUME 8.5 fl (7.5-11.1); PLATELET COUNT 166 K/MM3 (134-434); RBC 3.19 M/mm3 (4.00-5.60); RDW 17.2 % (11.9-15.9); WHITE BLOOD COUNT 4.9 K/mm3 (4.0-10.0)
[2018-04-07 06:58] LABS: ALK PHOS 583 U/L (45-117); ANION GAP 12 (8-16); BILIRUBIN,TOTAL 0.9 mg/dL (0.2-1.0); BLOOD UREA NITROGEN 24 mg/dL (7-18); CALCIUM 7.5 mg/dL (8.5-10.1); CHLORIDE 95 mmol/L (98-107); CO2 27 mmol/L (21-32); GLUCOSE,RANDOM 78 mg/dL (74-106); MAGNESIUM 1.6 mg/dL (1.8-2.4); PHOSPHOROUS 5.8 mg/dL (2.5-4.9); POTASSIUM 5.1 mmol/L (3.5-5.1); SGOT/AST 74 U/L (15-37); SGPT/ALT 44 U/L (12-78); SODIUM 134 mmol/L (136-145); TOT PROT 7.1 g/dl (6.4-8.2)
[2018-04-07 07:04] LABS: CREATININE 8.1 mg/dL (0.7-1.3)
[2018-04-07] MEDS ORDERED: DEXTROSE 5%-WATER - 1,000 ML IV SCH (08:00)
[2018-04-07] MEDS: MUPIROCIN 2% TOPICAL OINTMENT FOR DECOLONIZATION NS SCH ×2 (09:26→22:00)
[2018-04-07] MEDS ORDERED: VALSARTAN 80 MG TABLET (UD) PO SCH (10:00)
[2018-04-07] MEDS ORDERED: CARVEDILOL 25 MG TABLET (FP) PO SCH (10:00)
--- NOTE | 2018-04-07 11:48 | PN ---
Teaching Attending Note Name of Resident: Stephen Mcarthur ATTENDING PHYSICIAN STATEMENT I saw and evaluated the patient. I reviewed the resident's note and discussed the case with the resident. I agree with the resident's findings and plan as documented. SUBJECTIVE: Pt seen and examined in the ICU. s/p emergent dialysis with improvement in hyperkalemia. c/o bilateral leg weakness without pain. OBJECTIVE: Vital Signs Period Temp Pulse Resp BP Sys/Hayden Pulse Ox Last 24 Hr 97.7 F-98.9 F 84-108 18-20 147-188/58-98 98-100 Intake & Output 04/04/18 04/05/18 04/06/18 04/07/18 23:59 23:59 23:59 23:59 Intake Total 50 190 Balance 50 190 Weight 92.1 kg 94.574 kg Gen: NAD in chair Heart: RRR Lung: decreased breath sounds at the bases Abd: soft, nontender Ext: no edema CBC, BMP 04/07/18 05:30 04/07/18 05:30 Active Medications Atorvastatin Calcium (Lipitor -) 20 mg PO HS [facility] Last Admin: 04/06/18 21:24 Dose: 20 mg Calcium Acetate (Phoslo -) 667 mg PO TIDCM [facility] Carvedilol (Coreg -) 25 mg PO BID [facility] Last Admin: 04/07/18 09:21 Dose: 25 mg Heparin Sodium (Porcine) (Heparin -) 5,000 unit SQ TID [facility] Last Admin: 04/07/18 06:15 Dose: Not Given Sodium Chloride (Normal Saline -) 250 mls @ 3,000 mls/hr IV PRN PRN PRN Reason: Hypotension during Dialysis Stop: 04/07/18 17:25 Dextrose (D5w -) 1,000 mls @ 100 mls/hr IV Q10H [facility] Last Admin: 04/07/18 08:11 Dose: 100 mls/hr Mupirocin (Bactroban Ointment (For Decolonization) -) 1 applic NS BID [facility] Stop: 04/11/18 21:59 Last Admin: 04/07/18 09:26 Dose: 1 applic Sevelamer Carbonate (Renvela -) 1,600 mg PO TID [facility] Valsartan (Diovan -) 160 mg PO DAILY [facility] Last Admin: 04/07/18 09:19 Dose: 160 mg ASSESSMENT AND PLAN: ESRD on HD Hyperkalemia improved HTN DM - HD per renal - monitor lytes - continue BP meds - reinforce HD compliance - DVT prophylaxis - can monitor on floor
[2018-04-07] MEDS: CALCIUM ACETATE 667 MG CAPSULE (FP) PO SCH ×3 (12:25→21:57)
--- NOTE | 2018-04-07 13:04 | EKG ---
Test Reason : Blood Pressure : / mmHG Vent. Rate : 085 BPM Atrial Rate : 085 BPM P-R Int : 198 ms QRS Dur : 118 ms QT Int : 428 ms P-R-T Axes : 041 -66 083 degrees QTc Int : 509 ms NORMAL SINUS RHYTHM LEFT ANTERIOR FASCICULAR BLOCK PROLONGED QT ABNORMAL ECG WHEN COMPARED WITH ECG OF 06-APR-2018 14:55, NO SIGNIFICANT CHANGE WAS FOUND Confirmed by TOOTIE SHAH, CLARA ([id number]) on 04/07/2018 1:03:44 PM Referred By: Confirmed By:CLARA SOMMERS MD
--- NOTE | 2018-04-07 13:07 | EKG ---
Test Reason : Blood Pressure : / mmHG Vent. Rate : 086 BPM Atrial Rate : 086 BPM P-R Int : 220 ms QRS Dur : 128 ms QT Int : 428 ms P-R-T Axes : 046 -87 090 degrees QTc Int : 512 ms SINUS RHYTHM WITH 1ST DEGREE A-V BLOCK LEFT AXIS DEVIATION NON-SPECIFIC INTRA-VENTRICULAR CONDUCTION BLOCK T WAVE ABNORMALITY, CONSIDER LATERAL ISCHEMIA ABNORMAL ECG WHEN COMPARED WITH ECG OF 26-JAN-2018 17:08, NON-SPECIFIC INTRA-VENTRICULAR CONDUCTION BLOCK HAS REPLACED INCOMPLETE RIGHT BUNDLE BRANCH BLOCK Confirmed by TOOTIE SHAH, CLARA ([id number]) on 04/07/2018 1:06:36 PM Referred By: Confirmed By:CLARA SOMMERS MD
[2018-04-07] MEDS ORDERED: SODIUM CHLORIDE 250 ML IV PRN ×2 (13:29→16:33)
--- NOTE | 2018-04-07 13:29 | PN ---
Progress Note, Physician History of Present Illness: Pt seen and examined at bedside. He is awake and alert. He says he feels much better than yesterday. he denies shortness of breath. He feel that his legs feel stronger today but is not back to baseline. He tolerated HD last night. - Current Medication List Current Medications: Active Medications Atorvastatin Calcium (Lipitor -) 20 mg PO HS [facility] Last Admin: 04/06/18 21:24 Dose: 20 mg Calcium Acetate (Phoslo -) 667 mg PO TIDCM [facility] Last Admin: 04/07/18 12:28 Dose: Not Given Carvedilol (Coreg -) 25 mg PO BID [facility] Last Admin: 04/07/18 09:21 Dose: 25 mg Heparin Sodium (Porcine) (Heparin -) 5,000 unit SQ TID [facility] Last Admin: 04/07/18 06:15 Dose: Not Given Sodium Chloride (Normal Saline -) 250 mls @ 3,000 mls/hr IV PRN PRN PRN Reason: Hypotension during Dialysis Stop: 04/07/18 17:25 Dextrose (D5w -) 1,000 mls @ 100 mls/hr IV Q10H [facility] Last Admin: 04/07/18 08:11 Dose: 100 mls/hr Mupirocin (Bactroban Ointment (For Decolonization) -) 1 applic NS BID [facility] Stop: 04/11/18 21:59 Last Admin: 04/07/18 09:26 Dose: 1 applic Sevelamer Carbonate (Renvela -) 1,600 mg PO TID [facility] Valsartan (Diovan -) 160 mg PO DAILY [facility] Last Admin: 04/07/18 09:19 Dose: 160 mg - Objective Vital Signs: Vital Signs Temperature 98.9 F 04/07/18 06:00 Pulse Rate 86 04/07/18 09:47 Respiratory Rate 20 04/07/18 09:47 Blood Pressure 164/88 04/07/18 09:47 O2 Sat by Pulse Oximetry (%) 98 04/07/18 07:42 Constitutional: Yes: Calm Eyes: Yes: Conjunctiva Clear HENT: Yes: Atraumatic Neck: Yes: Supple Cardiovascular: Yes: S1, S2 Respiratory: Yes: CTA Bilaterally Gastrointestinal: Yes: Soft Genitourinary: Yes: WNL Musculoskeletal: Yes: WNL Edema: LLE: Trace, RLE: Trace Integumentary: Yes: WNL Neurological: Yes: Oriented Psychiatric: Yes: Oriented Labs: CBC, BMP 04/07/18 05:30 04/07/18 05:30 INR, PTT INR 1.03 (0.82-1.09) 04/06/18 15:00 Problem List - Problems (1) Hyponatremia Code(s): E87.1 - HYPO-OSMOLALITY AND HYPONATREMIA (2) Hyperkalemia Code(s): E87.5 - HYPERKALEMIA (3) Anemia Code(s): D64.9 - ANEMIA, UNSPECIFIED Qualifiers: Qualified Code(s): N18.6 - End stage renal disease; D63.1 - Anemia in chronic kidney disease; Z99.2 - Dependence on renal dialysis (4) Diabetes Code(s): E11.9 - TYPE 2 DIABETES MELLITUS WITHOUT COMPLICATIONS Qualifiers: (5) ESRD (end stage renal disease) Code(s): N18.6 - END STAGE RENAL DISEASE Assessment/Plan Current Medications Generic Name Dose Route Start Last Admin Trade Name Freq PRN Reason Stop Dose Admin Atorvastatin Calcium 20 mg 04/06/18 22:00 04/06/18 21:24 Lipitor - PO 20 mg HS [facility] Administration Calcium Acetate 667 mg 04/07/18 12:00 04/07/18 12:28 Phoslo - PO Not Given TIDCM [facility] Carvedilol 25 mg 04/07/18 10:00 04/07/18 09:21 Coreg - PO 25 mg BID [facility] Administration Heparin Sodium (Porcine) 5,000 unit 04/06/18 22:00 04/07/18 06:15 Heparin - SQ Not Given TID [facility] Sodium Chloride 250 mls @ 3,000 mls/hr 04/06/18 17:25 Normal Saline - IV 04/07/18 17:25 PRN PRN Hypotension during Dialysis Dextrose 1,000 mls @ 100 mls/hr 04/07/18 08:00 04/07/18 08:11 D5w - IV 100 mls/hr Q10H [facility] Administration Magnesium Sulfate 2 gm 04/07/18 13:27 Magnesium Sulfate IVPB 04/07/18 13:28 ONCE ONE Mupirocin 1 applic 04/06/18 22:00 04/07/18 09:26 Bactroban Ointment (For Decolonization) - NS 04/11/18 21:59 1 applic BID [facility] Administration Sevelamer Carbonate 1,600 mg 04/07/18 14:00 Renvela - PO TID [facility] Valsartan 160 mg 04/07/18 10:00 04/07/18 09:19 Diovan - PO 160 mg DAILY [facility] Administration Impression 1. ESRD 2. DM 3. hyponatremia 4. HTN 5. obesity 6. anemia 7. iron deficiency 8. CHF 9. anemia 10. hyperkalemia 11. liver mass 12. hx GI bleed 13. diabetic nephropathy 14. non compliance with HD treatment regimen Plan - HD again tomorrow - monitor lytes - will decrease rate of d5w - discussed importance of compliance with pt - will follow Dr Quezada
--- NOTE | 2018-04-07 13:47 | PN ---
Physical Exam: SUBJECTIVE: Patient seen and examined. Emergent HD last night. Tolerated well. He complains of B/L LE weakness. Offers no other complaints. Denies chest pain, sob, dizziness, nausea, vomiting, fevers. Says he feels better overall. OBJECTIVE: Vital Signs Period Temp Pulse Resp BP Sys/Hayden Pulse Ox Last 24 Hr 97.7 F-98.9 F 84-108 18-20 147-188/58-98 98-100 GENERAL: The patient is awake, alert, and fully oriented, in no acute distress. EYES: sclera anicteric, conjunctiva clear. ENT:oropharynx clear without exudates, moist mucous membranes. NECK:supple. LUNGS: Breath sounds equal, clear to auscultation bilaterally HEART: Regular rate and rhythm, S1, S2 without murmur, rub or gallop. ABDOMEN: Soft, nontender, nondistended, normoactive bowel sounds EXTREMITIES: 2+ pulses, no edema. NEUROLOGICAL: Cranial nerves II through XII grossly intact. PSYCH: Normal mood, normal affect. Laboratory Results - last 24 hr 04/06/18 04/06/18 04/06/18 15:00 15:00 15:00 WBC 4.3 RBC 3.23 L Hgb 11.4 L Hct 33.9 L D MCV 105.1 H MCH 35.3 H MCHC 33.6 RDW 17.2 H Plt Count 195 D MPV 8.0 D Absolute Neuts (auto) 3.2 Neutrophils % 73.5 Lymphocytes % 14.4 D Monocytes % 10.8 H Eosinophils % 0.9 Basophils % 0.4 Nucleated RBC % 0 PT with INR 11.60 INR 1.03 Sodium 119 L* D Potassium 7.2 H* D Chloride 84 L D Carbon Dioxide 19 L D Anion Gap 16 BUN 49 H Creatinine 12.9 H* Creat Clearance w eGFR 4.14 POC Glucometer Random Glucose 93 Calcium 7.1 L Phosphorus Magnesium 1.7 L Total Bilirubin 0.6 AST 91 H D ALT 50 D Alkaline Phosphatase 623 H Creatine Kinase 149 Troponin I < 0.02 D Total Protein 7.6 Albumin 3.1 L 04/06/18 04/06/18 04/06/18 17:47 18:05 21:20 WBC RBC Hgb Hct MCV MCH MCHC RDW Plt Count MPV Absolute Neuts (auto) Neutrophils % Lymphocytes % Monocytes % Eosinophils % Basophils % Nucleated RBC % PT with INR INR Sodium 135 L D Potassium 3.6 D Chloride 95 L D Carbon Dioxide 29 D Anion Gap 11 BUN 17 D Creatinine 4.5 H Creat Clearance w eGFR 13.94 POC Glucometer < 50 127.07593 Random Glucose 135 H D Calcium 7.3 L Phosphorus Magnesium Total Bilirubin AST ALT Alkaline Phosphatase Creatine Kinase Troponin I Total Protein Albumin 04/06/18 04/07/18 04/07/18 23:13 05:30 05:30 WBC 4.9 RBC 3.19 L Hgb 11.4 L Hct 33.2 L MCV 104.0 H MCH 35.8 H MCHC 34.4 RDW 17.2 H Plt Count 166 MPV 8.5 Absolute Neuts (auto) Neutrophils % Lymphocytes % Monocytes % Eosinophils % Basophils % Nucleated RBC % PT with INR INR Sodium 134 L Potassium 5.1 D Chloride 95 L Carbon Dioxide 27 Anion Gap 12 BUN 24 H Creatinine 8.1 H* Creat Clearance w eGFR 7.08 POC Glucometer [phone] Random Glucose 78 D Calcium 7.5 L Phosphorus 5.8 H Magnesium 1.6 L Total Bilirubin 0.9 AST 74 H ALT 44 Alkaline Phosphatase 583 H D Creatine Kinase Troponin I Total Protein 7.1 Albumin 3.0 L 04/07/18 06:04 WBC RBC Hgb Hct MCV MCH MCHC RDW Plt Count MPV Absolute Neuts (auto) Neutrophils % Lymphocytes % Monocytes % Eosinophils % Basophils % Nucleated RBC % PT with INR INR Sodium Potassium Chloride Carbon Dioxide Anion Gap BUN Creatinine Creat Clearance w eGFR POC Glucometer [phone] Random Glucose Calcium Phosphorus Magnesium Total Bilirubin AST ALT Alkaline Phosphatase Creatine Kinase Troponin I Total Protein Albumin Active Medications Generic Name Dose Route Start Last Admin Trade Name Freq PRN Reason Stop Dose Admin Atorvastatin Calcium 20 mg 04/06/18 22:00 04/06/18 21:24 Lipitor - PO 20 mg HS [facility] Administration Calcium Acetate 667 mg 04/07/18 12:00 04/07/18 12:28 Phoslo - PO Not Given TIDCM [facility] Carvedilol 25 mg 04/07/18 10:00 04/07/18 09:21 Coreg - PO 25 mg BID [facility] Administration Heparin Sodium (Porcine) 5,000 unit 04/06/18 22:00 04/07/18 06:15 Heparin - SQ Not Given TID [facility] Sodium Chloride 250 mls @ 3,000 mls/hr 04/06/18 17:25 Normal Saline - IV 04/07/18 17:25 PRN PRN Hypotension during Dialysis Dextrose 1,000 mls @ 100 mls/hr 04/07/18 08:00 04/07/18 08:11 D5w - IV 100 mls/hr Q10H [facility] Administration Mupirocin 1 applic 04/06/18 22:00 04/07/18 09:26 Bactroban Ointment (For Decolonization) - NS 04/11/18 21:59 1 applic BID [facility] Administration Sevelamer Carbonate 1,600 mg 04/07/18 14:00 Renvela - PO TID [facility] Valsartan 160 mg 04/07/18 10:00 04/07/18 09:19 Diovan - PO 160 mg DAILY [facility] Administration ASSESSMENT/PLAN: NEURO -at baseline -A/O x 3 #ESRD -noncompliant with HD -Missed at least 1 session this week. -emergent HD last night -K level improved -Renelva TID -FU neprho reccs -HD per renal, reinforce HD compliance CV #HTN #CHF -Coreg 25 BID -Diovan 160mg daily -monitor BP FEN D5 @ 55ml/hour monitor lytes Diabetic diet Ppx Hep SQ Transfer to Med-surge Visit type - Emergency Visit Emergency Visit: Yes ED Registration Date: 04/06/18 Care time: The patient presented to the Emergency Department on the above date and was hospitalized for further evaluation of their emergent condition. - New Patient This patient is new to me today: Yes Date on this admission: 04/07/18 - Critical Care Critical Care patient: Yes Total Critical Care Time (in minutes): 40 Critical Care Statement: The care of this patient involved high complexity decision making to prevent further life threatening deterioration of the patient 's condition and/or to evaluate & treat vital organ system(s) failure or risk of failure.
[2018-04-07] MEDS ORDERED: SEVELAMER CARBONATE 800 MG TAB (FP) PO SCH (14:00)
[2018-04-07] MEDS: DEXTROSE 5%-WATER - 1,000 ML IV SCH ×2 (14:10→23:34)
--- NOTE | 2018-04-07 14:11 | PN ---
Teaching Attending Note Name of Resident: Dedrick Robb ATTENDING PHYSICIAN STATEMENT I saw and evaluated the patient. I reviewed the resident's note and discussed the case with the resident. I agree with the resident's findings and plan as documented. SUBJECTIVE: No fever or chills, no abd pain , no PALMER , NO SOB. he feels his legs are weak. OBJECTIVE: NAD , MMM. injected R conjunctivae, and hazy R cornea CV: RRR. Lungs: CTAB Ext: no edema neuro of LE:strength 5/5 proximally anad distally. sensation to light touch NL. knee jerk 2+ b/l ASSESSMENT AND PLAN: 52 y/o man with h/o ESRD, non compliance , upper GI bleed 2/2 duodenal ulcers, HTN and DM who presented with a fall after missing Hd . 1- ESRD, missed HD , hyperkalemia due to non compliance. - s/p HD yesterday. - cont renal diet and renal f/u 2- Hyponatremia: corrected by 15 meq over 15 hrs .( ? initial number true ) - d5w and recheck Na - no sx 3- h/o D CHF: - cont volume management with HD - will confirm if he is on lasix at home - cont coreg 4- HTN: cont valsartan Dispo : HLOC.
[2018-04-07 14:31] LABS: ANION GAP 12 (8-16); BLOOD UREA NITROGEN 29 mg/dL (7-18); CALCIUM 7.3 mg/dL (8.5-10.1); CHLORIDE 91 mmol/L (98-107); CO2 27 mmol/L (21-32); GLUCOSE,RANDOM 164 mg/dL (74-106); POTASSIUM 4.9 mmol/L (3.5-5.1); SODIUM 130 mmol/L (136-145)
[2018-04-07] MEDS ORDERED: MAGNESIUM OXIDE 400 MG TABLET (FP) PO ONE (14:50)
[2018-04-07] MEDS ORDERED: MAGNESIUM 2GM/50ML STERILE WATER IVPB IVPB ONE (15:00)
[2018-04-07 15:14] LABS: CREATININE 8.6 mg/dL (0.7-1.3)
--- NOTE | 2018-04-07 19:47 | PN ---
Physical Exam: SUBJECTIVE: Pt received dialysis last night with rpt electrolyte normalizing. Pt states he feels slightly weak in his legs, however no other complaints. OBJECTIVE: Vital Signs Period Temp Pulse Resp BP Sys/Hayden Pulse Ox Last 24 Hr 98.4 F-98.9 F 72-802 18-126 130-188/58-91 98-99 GENERAL: NAD, Awake, alert, and fully oriented HEENT: NC/AT, EOMI, MARCIO, R eye clouding with R sclera injections; no purulence noted, MMM NECK: No JVD LUNGS: Diminished breath sounds at bases bilaterally. No wheezes. No accessory muscle use. HEART: RRR, normal S1 and S2 without murmur ABDOMEN: Soft, normoactive BS, NT/ND, no guarding. No hepatomegaly EXTREMITIES: 2+ DP pulses, No peripheral edema. Neuro: LExt strength 5/5 with knee flexion/extension, hip flexion, dorsal and plantar flexion/extension bilaterally. When transferring from chair to bed independently, pt able to maintain weight. PSYCHIATRIC: Cooperative. Good eye contact. Appropriate mood and affect. SKIN: Warm, dry, no rashes or lesions noted Laboratory Results - last 24 hr 04/06/18 04/06/18 04/07/18 21:20 23:13 05:30 WBC 4.9 RBC 3.19 L Hgb 11.4 L Hct 33.2 L MCV 104.0 H MCH 35.8 H MCHC 34.4 RDW 17.2 H Plt Count 166 MPV 8.5 Sodium 135 L D Potassium 3.6 D Chloride 95 L D Carbon Dioxide 29 D Anion Gap 11 BUN 17 D Creatinine 4.5 H Creat Clearance w eGFR 13.94 POC Glucometer [phone] Random Glucose 135 H D Calcium 7.3 L Phosphorus Magnesium Total Bilirubin AST ALT Alkaline Phosphatase Total Protein Albumin 04/07/18 04/07/18 04/07/18 05:30 06:04 13:35 WBC RBC Hgb Hct MCV MCH MCHC RDW Plt Count MPV Sodium 134 L 130 L Potassium 5.1 D 4.9 Chloride 95 L 91 L Carbon Dioxide 27 27 Anion Gap 12 12 BUN 24 H 29 H Creatinine 8.1 H* 8.6 H* Creat Clearance w eGFR 7.08 6.60 POC Glucometer 94.40287 Random Glucose 78 D 164 H D Calcium 7.5 L 7.3 L Phosphorus 5.8 H Magnesium 1.6 L Total Bilirubin 0.9 AST 74 H ALT 44 Alkaline Phosphatase 583 H D Total Protein 7.1 Albumin 3.0 L 04/07/18 04/07/18 17:26 17:30 WBC RBC Hgb Hct MCV MCH MCHC RDW Plt Count MPV Sodium 130 L Potassium Chloride Carbon Dioxide Anion Gap BUN Creatinine Creat Clearance w eGFR POC Glucometer 141.34133 Random Glucose Calcium Phosphorus Magnesium Total Bilirubin AST ALT Alkaline Phosphatase Total Protein Albumin Active Medications Generic Name Dose Route Start Last Admin Trade Name Freq PRN Reason Stop Dose Admin Atorvastatin Calcium 20 mg 04/07/18 22:00 Lipitor - PO HS [facility] Calcium Acetate 667 mg 04/07/18 17:30 Phoslo - PO TIDCM [facility] Carvedilol 25 mg 04/07/18 22:00 Coreg - PO BID [facility] Heparin Sodium (Porcine) 5,000 unit 04/07/18 22:00 Heparin - SQ TID [facility] Dextrose 1,000 mls @ 55 mls/hr 04/07/18 13:29 04/07/18 14:10 D5w - IV Not Given Q10H [facility] Sodium Chloride 250 mls @ 3,000 mls/hr 04/07/18 13:29 Normal Saline - IV 04/08/18 13:29 PRN PRN Hypotension during Dialysis Sodium Chloride 250 mls @ 3,000 mls/hr 04/07/18 16:33 Normal Saline - IV 04/07/18 17:25 PRN PRN Hypotension during Dialysis Mupirocin 1 applic 04/07/18 22:00 Bactroban Ointment (For Decolonization) - NS 04/11/18 21:59 BID [facility] Sevelamer Carbonate 1,600 mg 04/07/18 17:30 Renvela - PO TIDCM [facility] Trazodone HCl 50 mg 04/07/18 22:00 Desyrel - PO HS [facility] Valsartan 160 mg 04/08/18 10:00 Diovan - PO DAILY [facility] ASSESSMENT/PLAN: 1) Hyponatremia --Overcorrected with dialysis by 15 mEq w/i 24hrs --questionable accuracy of initial lab --D5W @100cc/hr; adjust pending repeat labs --Goal is to maintain between 128-130 for first 24hrs; then can normalize after --Nephrology on board --BMP rpt at 2pm and 6pm 2) Hyperkalemia --Resolved; now 5.1 3) ESRD --Schedule //Thu --Pt continually refuses to received AVF creation --Dialysis catheter in place 4) HTN Continue Diovan 160mg PO qdaily Continue Coreg 25mg PO BID 5) Normocytic anemia --Chronic; anemia of chronic disease --Monitor CBC FEN: Fluids: D5W@100cc/hr; monitor Na and volume status Electrolyte abnormalities as above and hyperPhos (phos-low to correct) Nutrition: Renal/sodium/diabetic PPX: DVT - Heparin SQ Dispo: Transfer out of ICU; d/c pending; PT pending Case discussed with Dr. Pollo Robb, DO - IM PGY-1 Visit type - Emergency Visit Emergency Visit: No - New Patient This patient is new to me today: No - Critical Care Critical Care patient: No
[2018-04-07] MEDS: SEVELAMER CARBONATE 800 MG TAB (FP) PO SCH (21:58)
[2018-04-07] MEDS: CARVEDILOL 25 MG TABLET (FP) PO SCH (22:00)
[2018-04-07] MEDS ORDERED: traZODone HCL 50 MG TABLET (FP) PO SCH (22:00)
[2018-04-07] MEDS ORDERED: ATORVASTATIN CA 20 MG TABLET (FP) PO SCH (22:00)
[2018-04-07] MEDS ORDERED: hydrALAZINE HCL 20 MG/ML VIAL IVPUSH ONE (23:03)
[2018-04-08 06:08] VITALS: TEMP 98.4
[2018-04-08] MEDS: HEPARIN NA (PORCINE) 5,000 UNITS/ML 1ML VIAL SQ SCH (06:09)
[2018-04-08 06:14] LABS: HEMATOCRIT 29.6 % (35.4-49); HEMOGLOBIN 10.1 GM/dL (11.7-16.9); MCHC 34.1 g/dl (32.0-35.9); MEAN CELL VOLUME 105.5 fl (80-96); MEAN PLT VOLUME 8.9 fl (7.5-11.1); PLATELET COUNT 132 K/MM3 (134-434); RBC 2.81 M/mm3 (4.00-5.60); RDW 17.4 % (11.9-15.9)
[2018-04-08 06:47] LABS: CHLORIDE 91 mmol/L (98-107); POTASSIUM 4.7 mmol/L (3.5-5.1); SODIUM 131 mmol/L (136-145)
[2018-04-08 06:55] LABS: ALBUMIN 2.7 g/dl (3.4-5.0); ALK PHOS 504 U/L (45-117); ANION GAP 14 (8-16); BILIRUBIN,TOTAL 0.9 mg/dL (0.2-1.0); BLOOD UREA NITROGEN 39 mg/dL (7-18); CALCIUM 7.3 mg/dL (8.5-10.1); CO2 26 mmol/L (21-32); GLUCOSE,RANDOM 76 mg/dL (74-106); MAGNESIUM 2.2 mg/dL (1.8-2.4); PHOSPHOROUS 6.7 mg/dL (2.5-4.9); SGOT/AST 75 U/L (15-37); SGPT/ALT 42 U/L (12-78); TOT PROT 6.5 g/dl (6.4-8.2)
[2018-04-08 07:13] LABS: CREATININE 9.4 mg/dL (0.7-1.3)
[2018-04-08] MEDS ORDERED: VALSARTAN 160 MG TABLET (UD) PO SCH (10:00)
[2018-04-08] MEDS: CALCIUM ACETATE 667 MG CAPSULE (FP) PO SCH (10:06)
[2018-04-08] MEDS: SEVELAMER CARBONATE 800 MG TAB (FP) PO SCH (10:18)
--- NOTE | 2018-04-08 10:58 | PN ---
Teaching Attending Note Name of Resident: Stephen Mcarthur ATTENDING PHYSICIAN STATEMENT I saw and evaluated the patient. I reviewed the resident's note and discussed the case with the resident. I agree with the resident's findings and plan as documented. SUBJECTIVE: Pt seen and examined in the ICU. Dialyzed again this AM. Feels better, close to baseline. Legs stronger. OBJECTIVE: Vital Signs Period Temp Pulse Resp BP Sys/Hayden Pulse Ox Last 24 Hr 98.2 F-98.5 F 66-98 16-20 104-190/62-93 98-98 Intake & Output 04/05/18 04/06/18 04/07/18 04/08/18 23:59 23:59 23:59 23:59 Intake Total 50 1315 50 Output Total 500 Balance 50 815 50 Weight 92.1 kg 94.574 kg 95.345 kg Gen: NAD at rest Heart: RRR Lung: decreased breath sounds at the bases Abd: soft, nontender Ext: no edema CBC, BMP 04/08/18 05:30 04/08/18 05:30 Active Medications Atorvastatin Calcium (Lipitor -) 20 mg PO HS [facility] Last Admin: 04/07/18 22:01 Dose: 20 mg Calcium Acetate (Phoslo -) 667 mg PO TIDCM [facility] Last Admin: 04/08/18 10:06 Dose: Not Given Carvedilol (Coreg -) 25 mg PO BID [facility] Last Admin: 04/07/18 22:00 Dose: 25 mg Heparin Sodium (Porcine) (Heparin -) 5,000 unit SQ TID [facility] Last Admin: 04/08/18 06:09 Dose: Not Given Sodium Chloride (Normal Saline -) 250 mls @ 3,000 mls/hr IV PRN PRN PRN Reason: Hypotension during Dialysis Stop: 04/08/18 13:29 Sodium Chloride (Normal Saline -) 250 mls @ 3,000 mls/hr IV PRN PRN PRN Reason: Hypotension during Dialysis Stop: 04/07/18 17:25 Mupirocin (Bactroban Ointment (For Decolonization) -) 1 applic NS BID [facility] Stop: 04/11/18 21:59 Last Admin: 04/07/18 22:00 Dose: Not Given Sevelamer Carbonate (Renvela -) 1,600 mg PO TIDCM [facility] Last Admin: 04/08/18 10:18 Dose: 1,600 mg Trazodone HCl (Desyrel -) 50 mg PO HS [facility] Last Admin: 04/07/18 22:01 Dose: 50 mg Valsartan (Diovan -) 160 mg PO DAILY [facility] ASSESSMENT AND PLAN: ESRD on HD Hyperkalemia improved HTN DM - HD per renal - monitor lytes - continue BP meds - reinforce HD compliance - DVT prophylaxis - can monitor on floor or d/c home
--- NOTE | 2018-04-08 11:03 | PN ---
Physical Exam: SUBJECTIVE: Patient seen and examined. No acute events overnight. HD session today. No new complaints. Says his legs are stronger today. OBJECTIVE: Vital Signs Period Temp Pulse Resp BP Sys/Hayden Pulse Ox Last 24 Hr 98.2 F-98.5 F 66-98 16-20 104-190/62-93 98-98 GENERAL: The patient is awake, alert, and fully oriented, in no acute distress. EYES: sclera anicteric, conjunctiva clear. ENT:oropharynx clear without exudates, moist mucous membranes. NECK:supple. LUNGS: Breath sounds equal, clear to auscultation bilaterally HEART: Regular rate and rhythm, S1, S2 without murmur, rub or gallop. ABDOMEN: Soft, nontender, nondistended, normoactive bowel sounds EXTREMITIES: 2+ pulses, no edema. NEUROLOGICAL: Cranial nerves II through XII grossly intact. PSYCH: Normal mood, normal affect. Laboratory Results - last 24 hr 04/06/18 04/07/18 04/07/18 18:30 13:35 17:26 WBC RBC Hgb Hct MCV MCH MCHC RDW Plt Count MPV Sodium 130 L Potassium 4.9 Chloride 91 L Carbon Dioxide 27 Anion Gap 12 BUN 29 H Creatinine 8.6 H* Creat Clearance w eGFR 6.60 POC Glucometer 141.48703 Random Glucose 164 H D Calcium 7.3 L Phosphorus Magnesium Total Bilirubin AST ALT Alkaline Phosphatase Total Protein Albumin Hep C Ab Diagnostic <0.1 Liver Fibrosis Interp 04/07/18 04/07/18 04/07/18 17:30 22:16 23:00 WBC RBC Hgb Hct MCV MCH MCHC RDW Plt Count MPV Sodium 130 L 130 L Potassium Chloride Carbon Dioxide Anion Gap BUN Creatinine Creat Clearance w eGFR POC Glucometer Random Glucose 116 H D Calcium Phosphorus Magnesium Total Bilirubin AST ALT Alkaline Phosphatase Total Protein Albumin Hep C Ab Diagnostic Liver Fibrosis Interp 04/08/18 04/08/18 04/08/18 05:30 05:30 05:49 WBC 4.0 RBC 2.81 L Hgb 10.1 L Hct 29.6 L MCV 105.5 H MCH 36.0 H MCHC 34.1 RDW 17.4 H Plt Count 132 L D MPV 8.9 Sodium 131 L Potassium 4.7 Chloride 91 L Carbon Dioxide 26 Anion Gap 14 BUN 39 H Creatinine 9.4 H* Creat Clearance w eGFR 5.96 POC Glucometer 91.07722 Random Glucose 76 D Calcium 7.3 L Phosphorus 6.7 H Magnesium 2.2 D Total Bilirubin 0.9 AST 75 H ALT 42 Alkaline Phosphatase 504 H D Total Protein 6.5 Albumin 2.7 L Hep C Ab Diagnostic Liver Fibrosis Interp Active Medications Generic Name Dose Route Start Last Admin Trade Name Freq PRN Reason Stop Dose Admin Atorvastatin Calcium 20 mg 04/07/18 22:00 04/07/18 22:01 Lipitor - PO 20 mg HS [facility]ST[facility] Administration Calcium Acetate 667 mg 04/07/18 17:30 04/08/18 10:06 Phoslo - PO Not Given TIDCM [facility] Carvedilol 25 mg 04/07/18 22:00 04/07/18 22:00 Coreg - PO 25 mg BID [facility] Administration Heparin Sodium (Porcine) 5,000 unit 04/07/18 22:00 04/08/18 06:09 Heparin - SQ Not Given TID [facility] Sodium Chloride 250 mls @ 3,000 mls/hr 04/07/18 13:29 Normal Saline - IV 04/08/18 13:29 PRN PRN Hypotension during Dialysis Sodium Chloride 250 mls @ 3,000 mls/hr 04/07/18 16:33 Normal Saline - IV 04/07/18 17:25 PRN PRN Hypotension during Dialysis Mupirocin 1 applic 04/07/18 22:00 04/07/18 22:00 Bactroban Ointment (For Decolonization) - NS 04/11/18 21:59 Not Given BID [facility] Sevelamer Carbonate 1,600 mg 04/07/18 17:30 04/08/18 10:18 Renvela - PO 1,600 mg TIDCM [facility] Administration Trazodone HCl 50 mg 04/07/18 22:00 04/07/18 22:01 Desyrel - PO 50 mg HS [facility] Administration Valsartan 160 mg 04/08/18 10:00 Diovan - PO DAILY [facility] ASSESSMENT/PLAN: NEURO -at baseline -A/O x 3 #ESRD -noncompliant with HD -Missed at least 1 session this week. -HD today. -K level improved -Renelva TID -FU neprho reccs -HD per renal, reinforce HD compliance CV #HTN #CHF -Coreg 25 BID -Diovan 160mg daily -monitor BP FEN No IV fluids monitor lytes Diabetic diet Ppx Hep SQ Ok for discharge from ICU standpoint. Visit type - Emergency Visit Emergency Visit: Yes ED Registration Date: 04/06/18 Care time: The patient presented to the Emergency Department on the above date and was hospitalized for further evaluation of their emergent condition. - New Patient This patient is new to me today: No - Critical Care Critical Care patient: Yes Total Critical Care Time (in minutes): 40 Critical Care Statement: The care of this patient involved high complexity decision making to prevent further life threatening deterioration of the patient 's condition and/or to evaluate & treat vital organ system(s) failure or risk of failure.
[2018-04-08] MEDS: CARVEDILOL 25 MG TABLET (FP) PO SCH (11:05)
[2018-04-08] MEDS: MUPIROCIN 2% TOPICAL OINTMENT FOR DECOLONIZATION NS SCH (11:06)
--- NOTE | 2018-04-08 11:40 | PN ---
Teaching Attending Note Name of Resident: Dedrick Robb ATTENDING PHYSICIAN STATEMENT I saw and evaluated the patient. I reviewed the resident's note and discussed the case with the resident. I agree with the resident's findings and plan as documented. SUBJECTIVE: No fever or chills. No abd pain . No SOB . OBJECTIVE: NAD , MMM. injected R conjunctivae ( better than yesterday ) , and hazy R cornea CV: RRR. Lungs: CTAB Ext: no edema ASSESSMENT AND PLAN: 52 y/o man with h/o ESRD, non compliance , upper GI bleed 2/2 duodenal ulcers, HTN and DM who presented with a fall after missing Hd . 1- ESRD, Non compliance - HD today - cont renal diet and renal f/u - lasix 2- Hyponatremia: stable Na today. dc D5W 3- h/o D CHF: - cont volume management with HD. cont home lasix - cont coreg 4- HTN: cont valsartan will discuss with Dr. Quezada. might DC home today as Na is stable. blood work with next HD.
[2018-04-08 13:55] VITALS: BMI 31.0
[2018-04-08 15:13] VITALS: BP 133/91; PULSE 80
--- NOTE | 2018-04-08 15:34 | PN ---
Progress Note, Physician History of Present Illness: Pt seen and examined at bedside. He is awake and alert. He tolerated HD. He is requesting to go home. He denies shortness of breath. - Current Medication List Current Medications: Active Medications Atorvastatin Calcium (Lipitor -) 20 mg PO HS [facility] Last Admin: 04/07/18 22:01 Dose: 20 mg Calcium Acetate (Phoslo -) 667 mg PO TIDCM [facility] Last Admin: 04/08/18 10:06 Dose: Not Given Carvedilol (Coreg -) 25 mg PO BID [facility] Last Admin: 04/08/18 11:05 Dose: 25 mg Heparin Sodium (Porcine) (Heparin -) 5,000 unit SQ TID [facility] Last Admin: 04/08/18 06:09 Dose: Not Given Sodium Chloride (Normal Saline -) 250 mls @ 3,000 mls/hr IV PRN PRN PRN Reason: Hypotension during Dialysis Stop: 04/08/18 13:29 Sodium Chloride (Normal Saline -) 250 mls @ 3,000 mls/hr IV PRN PRN PRN Reason: Hypotension during Dialysis Stop: 04/07/18 17:25 Mupirocin (Bactroban Ointment (For Decolonization) -) 1 applic NS BID [facility] Stop: 04/11/18 21:59 Last Admin: 04/08/18 11:06 Dose: 1 applic Sevelamer Carbonate (Renvela -) 1,600 mg PO TIDCM [facility] Last Admin: 04/08/18 10:18 Dose: 1,600 mg Trazodone HCl (Desyrel -) 50 mg PO [facility] Last Admin: 04/07/18 22:01 Dose: 50 mg Valsartan (Diovan -) 160 mg PO DAILY [facility] Last Admin: 04/08/18 11:05 Dose: 160 mg - Objective Vital Signs: Vital Signs Temperature 98.4 F 04/08/18 13:00 Pulse Rate 80 04/08/18 13:00 Respiratory Rate 19 04/08/18 13:00 Blood Pressure 133/91 04/08/18 13:00 O2 Sat by Pulse Oximetry (%) 98 04/08/18 09:00 Constitutional: Yes: Calm Eyes: Yes: Conjunctiva Clear HENT: Yes: Atraumatic Neck: Yes: Supple Cardiovascular: Yes: S1, S2 Respiratory: Yes: CTA Bilaterally Gastrointestinal: Yes: Normal Bowel Sounds, Soft Genitourinary: Yes: WNL Musculoskeletal: Yes: WNL Edema: No Neurological: Yes: Oriented Psychiatric: Yes: Oriented Labs: CBC, BMP 04/08/18 05:30 04/08/18 05:30 INR, PTT INR 1.03 (0.82-1.09) 04/06/18 15:00 Problem List - Problems (1) Hyponatremia Code(s): E87.1 - HYPO-OSMOLALITY AND HYPONATREMIA (2) Hyperkalemia Code(s): E87.5 - HYPERKALEMIA (3) Anemia Code(s): D64.9 - ANEMIA, UNSPECIFIED Qualifiers: Anemia type: due to chronic kidney disease Chronic kidney disease stage: on chronic dialysis Qualified Code(s): N18.6 - End stage renal disease; D63.1 - Anemia in chronic kidney disease; D63.1 - Anemia in chronic kidney disease; Z99.2 - Dependence on renal dialysis; Z99.2 - Dependence on renal dialysis; Z99.2 - Dependence on renal dialysis; Z99.2 - Dependence on renal dialysis (4) Diabetes Code(s): E11.9 - TYPE 2 DIABETES MELLITUS WITHOUT COMPLICATIONS Qualifiers: (5) ESRD (end stage renal disease) Code(s): N18.6 - END STAGE RENAL DISEASE Assessment/Plan Current Medications Generic Name Dose Route Start Last Admin Trade Name Freq PRN Reason Stop Dose Admin Atorvastatin Calcium 20 mg 04/07/18 22:00 04/07/18 22:01 Lipitor - PO 20 mg HS KRISTEN Administration Calcium Acetate 667 mg 04/07/18 17:30 04/08/18 10:06 Phoslo - PO Not Given TIDCM KRISTEN Carvedilol 25 mg 04/07/18 22:00 04/08/18 11:05 Coreg - PO 25 mg BID KRISTEN Administration Heparin Sodium (Porcine) 5,000 unit 04/07/18 22:00 04/08/18 06:09 Heparin - SQ Not Given TID KRISTEN Sodium Chloride 250 mls @ 3,000 mls/hr 04/07/18 13:29 Normal Saline - IV 04/08/18 13:29 PRN PRN Hypotension during Dialysis Sodium Chloride 250 mls @ 3,000 mls/hr 04/07/18 16:33 Normal Saline - IV 04/07/18 17:25 PRN PRN Hypotension during Dialysis Mupirocin 1 applic 04/07/18 22:00 04/08/18 11:06 Bactroban Ointment (For Decolonization) - NS 04/11/18 21:59 1 applic BID KRISTEN Administration Sevelamer Carbonate 1,600 mg 04/07/18 17:30 04/08/18 10:18 Renvela - PO 1,600 mg TIDCM KRISTEN Administration Trazodone HCl 50 mg 04/07/18 22:00 04/07/18 22:01 Desyrel - PO 50 mg HS KRISTEN Administration Valsartan 160 mg 04/08/18 10:00 04/08/18 11:05 Diovan - PO 160 mg DAILY KRISTEN Administration Impression 1. ESRD 2. DM 3. hyponatremia 4. HTN 5. obesity 6. anemia 7. iron deficiency 8. CHF 9. anemia 10. hyperkalemia 11. liver mass 12. hx GI bleed 13. diabetic nephropathy 14. non compliance with HD treatment regimen Plan - pt tolerated HD today - discussed compliance at length with pt, he says that he will start to "take his hd prescription more seriously" - renal diet - monitor bp - epogen for anemia - will follow Dr Quezada
--- NOTE | 2018-04-08 16:15 | DS ---
Physical Exam: SUBJECTIVE: Pt being dialyzed. No complaints voiced. Pt noted to have walked 100ft yesterday with physical therapy. OBJECTIVE: Vital Signs Period Temp Pulse Resp BP Sys/Hayden Pulse Ox Last 24 Hr 98.2 F-98.5 F 66-98 16-20 104-190/62-93 98-98 PHYSICAL EXAM GENERAL: NAD, Awake, alert, and fully oriented HEENT: NC/AT, EOMI, MARCIO, R eye clouding with R sclera injections; no purulence noted, MMM NECK: No JVD LUNGS: Diminished breath sounds at bases bilaterally. No wheezes. No accessory muscle use. HEART: RRR, normal S1 and S2 without murmur ABDOMEN: Soft, normoactive BS, NT/ND, no guarding. No hepatomegaly EXTREMITIES: 2+ DP pulses, No peripheral edema. Neuro: LExt strength 5/5 with knee flexion/extension, hip flexion, dorsal and plantar flexion/extension bilaterally. When transferring from chair to bed independently, pt able to maintain weight. PSYCHIATRIC: Cooperative. Good eye contact. Appropriate mood and affect. SKIN: Warm, dry, no rashes or lesions noted LABS Laboratory Results - last 24 hr 04/07/18 04/07/18 04/08/18 22:16 23:00 05:30 WBC 4.0 RBC 2.81 L Hgb 10.1 L Hct 29.6 L MCV 105.5 H MCH 36.0 H MCHC 34.1 RDW 17.4 H Plt Count 132 L D MPV 8.9 Sodium 130 L Potassium Chloride Carbon Dioxide Anion Gap BUN Creatinine Creat Clearance w eGFR POC Glucometer Random Glucose 116 H D Calcium Phosphorus Magnesium Total Bilirubin AST ALT Alkaline Phosphatase Total Protein Albumin Hep C Ab Diagnostic Liver Fibrosis Inter 04/08/18 04/08/18 05:30 05:49 WBC RBC Hgb Hct MCV MCH MCHC RDW Plt Count MPV Sodium 131 L Potassium 4.7 Chloride 91 L Carbon Dioxide 26 Anion Gap 14 BUN 39 H Creatinine 9.4 H* Creat Clearance w eGFR 5.96 POC Glucometer 91.07897 Random Glucose 76 D Calcium 7.3 L Phosphorus 6.7 H Magnesium 2.2 D Total Bilirubin 0.9 AST 75 H ALT 42 Alkaline Phosphatase 504 H D Total Protein 6.5 Albumin 2.7 L Hep C Ab Diagnostic Liver Fibrosis Inter HOSPITAL COURSE: Date of Admission:04/06/18 Date of Discharge: 04/08/18 Pt was admitted on 04/06/18 due to lower extremity weakness found to have severe electrolyte derangements (Na 119 and K 7.2). Pt was noted to have skipped dialysis the previous thursday and the day of admission. He was noted to have severe EKG changes due to his hyperkalemia, but luckily had no mental status changes. Pt was admitted to ICU for emergent dialysis arranged by nephrology. The following day, post-dialysis, pt was noted to have overcorrection of Na and was placed on D5W to mitigate the rapid correction. Pt during this time had no symptoms and his weakness had resolved. He was noted to have walked 100ft with physical therapy. Pt's sodium levels were followed and on 04/08/18 after his dialysis he is to be discharged to home. Of note: pt was instructed on the importance of compliance to his HD sessions by both his primary and nephrology teams. He is instructed to continue his HD regiment on //Thu and to follow-up with Dr. Quezada's office for repeat BMP. In addition, it should be noted that pt has been refusing AVF creation and is being dialyzed through a permacath. Minutes to complete discharge: 35 Discharge Summary Reason For Visit: HYPOKALEMIA,HYPONATREMIA,WEAKNESS,DIZZY Current Active Problems Hyperkalemia (Acute) Hyponatremia (Acute) ESRD (end stage renal disease) (Chronic) Condition: Improved - Instructions Diet, Activity, Other Instructions: You were here due to you dangerous levels of sodium and potassium in your blood. You missed dialysis which caused these levels to become dangerous. MEDICATIONS: Please continue your home medications as you have been Please do not miss dialysis as you can have electrolyte levels that are dangerous FOLLOW-UPs: You should see Dr. Becerra/Dr. Duarte in the clinic within 1 week You should see Dr. Quezada per your regularly scheduled appointments In the past you did not want a fistula, however if you change your mind please ask Dr. Quezada about a referral to a vascular surgeon Blood work to be checked with dialysis to make sure your electrolytes are OK Referrals: Mehdi Becerra RES [Resident] - 1 Week Cate Quezada MD [Staff Physician] - 1 Week Disposition: HOME - Home Medications Comprehensive Discharge Medication List: Ambulatory Orders Carvedilol [Coreg] 25 mg PO BID #60 tablet 10/01/16 Calcium Acetate 670 mg PO TID 05/05/17 Valsartan [Diovan] 160 mg PO DAILY 05/05/17 Furosemide [Lasix -] 40 mg PO DAILY 07/30/17 Atorvastatin Calcium 20 mg PO HS 01/27/18 Sevelamer Carbonate [Renvela -] 1,600 mg PO TID 01/27/18 Trazodone HCl 50 mg PO HS 04/07/18 This patient is new to me today: No Emergency Visit: No Critical Care patient: No - Discharge Referral Referred to [facility] Med P.C.: No
[2018-04-08] MEDS ORDERED: EPOETIN ALFA 3,000 UNIT/1 ML ML SQ ONE (18:00)
[2018-04-09 00:07] LABS: HBSAG SCREEN Negative (Negative); HEP A AB, IGM Negative (Negative); HEP B CORE AB, TOT Negative (Negative)
== END 2018-04-08 15:18 | disposition home or self-care (01) | DRG 640 ==
LOC: JER 14:11 → JERBED 16:04 → JICU 18:32
PROVIDERS: ADMIT Internal Medicine; ATTEND Internal Medicine
PROC: 5A1D70Z Performance of Urinary Filtration, Intermittent, Less than 6 Hours Per Day (ICD-10-PCS; principal; 2018-04-06)
DX: E87.1 Hypo-osmolality and hyponatremia (principal); N18.6 End stage renal disease; I13.2 Hypertensive heart and chronic kidney disease with heart failure and with stage 5 chronic kidney disease, or end stage renal disease; I50.32 Chronic diastolic (congestive) heart failure; E87.5 Hyperkalemia; E11.22 Type 2 diabetes mellitus with diabetic chronic kidney disease; Z99.2 Dependence on renal dialysis; Z79.4 Long term (current) use of insulin; D64.9 Anemia, unspecified; I44.0 Atrioventricular block, first degree; I45.81 Long QT syndrome; H54.61 Unqualified visual loss, right eye, normal vision left eye; D63.1 Anemia in chronic kidney disease; E66.9 Obesity, unspecified; Z68.31 Body mass index [BMI] 31.0-31.9, adult; D50.8 Other iron deficiency anemias; R16.0 Hepatomegaly, not elsewhere classified; E11.21 Type 2 diabetes mellitus with diabetic nephropathy; Z91.15 Patient's noncompliance with renal dialysis
CPT/HCPCS: 36415; 71045-TC-FY; 80048; 80053; 82550; 82947; 82962; 83735; 84100; 84295; 84484; 85025; 85027; 85610; 86704; 86706; 86708; 87340; 93005; 93010; 97116-GP; 97161-GP; 99283-25; J1644

== ENCOUNTER 2018-05-05 09:55 | Inpatient (IN) | payer BC ==
[2018-05-04 11:47] VITALS: BMI 29.7
[~2018-05-05 09:55] MED LIST: BUPIVACAINE HCL/PF (5 MG/ML) 30 ML VIAL IJ ONE; LIDOCAINE HCL 1%, 10 MG/ML (20ML VIAL) INF ONE
--- NOTE | 2018-05-05 12:23 | HP ---
Satellite H - Chief Complaint History of Present Illness: 52 year old with ESRD on HD with Permacath. Patient wishes to have PD catheter placed. History Source: Patient - Past Medical History Allergies/Adverse Reactions: Allergies Allergy/AdvReac Type Severity Reaction Status Date / Time Penicillins Allergy Intermediate Verified 05/04/18 11:36 Cardiovascular: Yes: HTN, Hyperlipdemia Renal/: Yes: Renal Failure, Renal Inusuff, Hemodialysis Endocrine: Yes: Diabetes Mellitus - Current Medications Current Medications: Home Medications Medication Instructions Recorded Carvedilol [Coreg] 25 mg PO BID #60 tablet 10/01/16 Furosemide [Lasix -] 40 mg PO DAILY 07/30/17 Sevelamer Carbonate [Renvela -] 1,600 mg PO TID 01/27/18 Trazodone HCl 50 mg PO HS 04/07/18 Pantoprazole Sodium 40 mg PO BID 05/04/18 Satellite Physical Exam - Physical Examination Vital Signs: Vital Signs Period Temp Pulse Resp BP Sys/Hayden Pulse Ox Last 24 Hr 98.6 F-98.6 F 82-82 20-20 130-130/86-86 100 General Appearance: Obese ENT: Clear Lung: Clear to auscultation Heart: Regular rate & rhythm Abdomen: Soft, No tenderness Extremities: No edema Satellite Impression/Plan - Impression/Plan Impression: ESRD on HD. DM Operative Procedure: Laparoscopy, placement of peritoneal dialysis catheter Date to be Performed: 05/05/18
[2018-05-05] MEDS ORDERED: DEXTROSE 50%-WATER 25 GM/50 ML DISP.SYRIN ONE ×2 (12:34→15:16)
[2018-05-05] MEDS ORDERED: MIDAZOLAM HCL 2 MG/2 ML SINGLE DOSE VIAL ONE (12:43)
[2018-05-05] MEDS ORDERED: ROCURONIUM BROMIDE 50 MG/5 ML VIAL ONE (12:43)
[2018-05-05] MEDS ORDERED: PROPOFOL 20 ML ONE (12:43)
[2018-05-05] MEDS ORDERED: BUPIVACAINE HCL/PF 0.5% (5MG/ML) 10 ML VIAL ONE (12:57)
[2018-05-05] MEDS ORDERED: LIDOCAINE HCL 1%, 10 MG/ML (20ML VIAL) ONE (12:57)
[2018-05-05] MEDS ORDERED: HEPARIN NA (PORCINE) 5,000 UNITS/ML 1ML VIAL ONE (12:58)
[2018-05-05] MEDS ORDERED: BACITRACIN 15 GM TUBE TOPICAL OINTMENT ONE (12:59)
[2018-05-05] MEDS ORDERED: INSULIN REGULAR HUMAN 100 UNITS/ML *VIAL IVPUSH ONE (13:00)
--- NOTE | 2018-05-05 13:02 | CONSULT ---
Consult Consult Specialty:: Nephrology Reason for Consultation:: ESRD - History of Present Illness Chief Complaint: presents for PD catheter History of Present Illness: Pt is a 52 year old male with pmhx of ESRD, anemia and DM who presents to the hospital for PD catheter placement. I was called to evaluate him for HD. He was last dialyzed yesterday. He was found to have elevated potassium. He is refusing to postpone the procedure. He agrees to stay for HD after. He denies chest pain or shortness of breath. He denies fevers or chills. - History Source History Provided By: Patient - Past Medical History Cardio/Vascular: Yes: HTN, Hyperlipdemia Gastrointestinal: Yes: GI Bleed Renal/: Yes: Renal Failure, Renal Inusuff, Hemodialysis Heme/Onc: Yes: Anemia Endocrine: Yes: Diabetes Mellitus - Alcohol/Substance Use Hx Alcohol Use: Yes (1-2 glasses wine/day) History of Substance Use: reports: None - Smoking History Smoking history: Never smoked Have you smoked in the past 12 months: No Aproximately how many cigarettes per day: 0 - Social History ADL: Independent Home Medications - Allergies Allergies/Adverse Reactions: Allergies Allergy/AdvReac Type Severity Reaction Status Date / Time Penicillins Allergy Intermediate Verified 05/04/18 11:36 - Home Medications Home Medications: Ambulatory Orders Carvedilol [Coreg] 25 mg PO BID #60 tablet 10/01/16 Furosemide [Lasix -] 40 mg PO DAILY 07/30/17 Sevelamer Carbonate [Renvela -] 1,600 mg PO TID 01/27/18 Trazodone HCl 50 mg PO HS 04/07/18 Pantoprazole Sodium 40 mg PO BID 05/04/18 Family Disease History - Family Disease History Family Disease History: Diabetes: Brother (CVA), Heart Disease: Father Review of Systems - Review of Systems Constitutional: reports: No Symptoms Eyes: reports: No Symptoms HENT: reports: No Symptoms Neck: reports: No Symptoms Cardiovascular: reports: No Symptoms Respiratory: reports: No Symptoms Gastrointestinal: reports: No Symptoms Genitourinary: reports: No Symptoms Musculoskeletal: reports: No Symptoms Integumentary: reports: No Symptoms Neurological: reports: No Symptoms Endocrine: reports: No Symptoms Hematology/Lymphatic: reports: No Symptoms Psychiatric: reports: No Symptoms Physical Exam Vital Signs: Vital Signs Temperature 98.6 F 05/05/18 10:48 Pulse Rate 82 05/05/18 10:48 Respiratory Rate 20 05/05/18 10:48 Blood Pressure 130/86 05/05/18 10:48 O2 Sat by Pulse Oximetry (%) 100 05/05/18 10:48 Constitutional: Yes: Calm Eyes: Yes: Conjunctiva Clear HENT: Yes: Atraumatic Cardiovascular: Yes: S1, S2 Respiratory: Yes: CTA Bilaterally Gastrointestinal: Yes: Soft Renal/: Yes: WNL Musculoskeletal: Yes: WNL Edema: No Neurological: Yes: Oriented Psychiatric: Yes: Oriented Labs: CBC, BMP 05/05/18 10:14 Problem List - Problems (1) Hyperkalemia Code(s): E87.5 - HYPERKALEMIA (2) Chronic anemia Code(s): D64.9 - ANEMIA, UNSPECIFIED (3) Diabetes Code(s): E11.9 - TYPE 2 DIABETES MELLITUS WITHOUT COMPLICATIONS Qualifiers: (4) ESRD (end stage renal disease) Code(s): N18.6 - END STAGE RENAL DISEASE Assessment/Plan Current Medications Generic Name Dose Route Start Last Admin Trade Name Freq PRN Reason Stop Dose Admin Insulin Human Regular 10 units 05/05/18 13:00 Novolin R Vial *For Ivpush Or Iv Drip Only* IVPUSH 05/05/18 13:01 ONCE ONE Impression 1. ESRD 2. DM 3. hyponatremia 4. HTN 5. obesity 6. anemia 7. iron deficiency 8. CHF 9. anemia 10. hyperkalemia 11. liver mass 12. hx GI bleed 13. diabetic nephropathy 14. non compliance with HD treatment regimen Plan - pt refusing to postpone procedure - give d50 and insulin, check finger sticks - will arrange for HD today - pt is not compliant with HD times and diet - epogen for anemia - will follow Dr Quezada
[2018-05-05] MEDS ORDERED: CLINDAMYCIN PHOSPHATE 600 MG/4 ML VIAL ONE (13:56)
[2018-05-05] MEDS ORDERED: CLINDAMYCIN 600 MG PREMIX BAG IVPB ONE (13:56)
[2018-05-05] MEDS ORDERED: BUPIVACAINE HCL/PF (5 MG/ML) 30 ML VIAL IJ ONE (14:02)
[2018-05-05] MEDS ORDERED: GLYCOPYRROLATE 0.2 MG/1 ML VIAL ONE (14:11)
[2018-05-05] MEDS ORDERED: NEOSTIGMINE METHYLSULFATE 0.5 MG/ML - 10 ML MDV ONE (14:11)
--- NOTE | 2018-05-05 14:29 | OP ---
Operative Note - Note: Operative Date: 05/05/18 Pre-Operative Diagnosis: ESRD Operation: Laparoscopy, Placement Peritoneal Dialysis catheter Findings: No intrabdominal adhesions. Small amount of ascites Implants: Curled double cuff catheter Post-Operative Diagnosis: Same as Pre-op Surgeon: Olman Robbins Sheet Metal Duct Installer: Madai Hall Anesthesiologist/STRATEGIC MARKETING MANAGER: Cinda Davidson Anesthesia: General Estimated Blood Loss (mls): 10
[2018-05-05] MEDS ORDERED: ONDANSETRON 4 MG/2 ML VIAL IVPUSH PRN (14:40)
[2018-05-05] MEDS ORDERED: ACETAMINOPHEN WITH CODEINE 300MG/30MG TABLET PO PRN (14:44)
[2018-05-05] MEDS ORDERED: SODIUM CHLORIDE 1,000 ML IV SCH (14:45)
--- NOTE | 2018-05-05 14:48 | SURG ---
Surgery Produce Shipper Note Produce Shipper: Madai Hall PA-C Date of Service: 05/05/18 Diagnosis: ESRD Procedure: Laparoscopy, Placement Peritoneal Dialysis catheter I was present for the entirety of the operative procedure. For further detail, please refer to operative report. Visit type - Case Type Case Type: Scheduled - Emergency Emergency Visit: No - New patient This patient is new to me today: Yes Date on this admission: 05/05/18
[2018-05-05] MEDS ORDERED: EPOETIN ALFA 2,000 UNIT/1 ML VIAL IVPUSH ONE (15:00)
[2018-05-05] MEDS ORDERED: SODIUM CHLORIDE 250 ML IV PRN (15:12)
[2018-05-05] MEDS ORDERED: DEXTROSE 50%-WATER - 25 GM/50 ML VIAL IVPUSH ONE (16:30)
[2018-05-05 16:38] VITALS: TEMP 97.7
[2018-05-05 16:44] LABS: HEMATOCRIT 30.5 % (35.4-49); HEMOGLOBIN 10.1 GM/dL (11.7-16.9); MCH 35.4 pg (25.7-33.7); MCHC 33.2 g/dl (32.0-35.9); MEAN CELL VOLUME 106.9 fl (80-96); MEAN PLT VOLUME 8.8 fl (7.5-11.1); PLATELET COUNT 197 K/MM3 (134-434); RBC 2.86 M/mm3 (4.00-5.60); RDW 16.8 % (11.9-15.9); WHITE BLOOD COUNT 4.2 K/mm3 (4.0-10.0)
[2018-05-05] MEDS ORDERED: SEVELAMER CARBONATE 800 MG TAB (FP) PO SCH (17:30)
[2018-05-05 17:31] LABS: ANION GAP 13 (8-16); BLOOD UREA NITROGEN 45 mg/dL (7-18); CHLORIDE 101 mmol/L (98-107); CO2 20 mmol/L (21-32); GLUCOSE,RANDOM 124 mg/dL (74-106); POTASSIUM 5.7 mmol/L (3.5-5.1); SODIUM 134 mmol/L (136-145)
[2018-05-05 17:36] LABS: CREATININE 8.8 mg/dL (0.7-1.3)
[2018-05-05 19:21] VITALS: BP 175/100; PULSE 82
[2018-05-05 21:58] LABS: ANION GAP 7 (8-16); BLOOD UREA NITROGEN 13 mg/dL (7-18); CALCIUM 7.7 mg/dL (8.5-10.1); CHLORIDE 100 mmol/L (98-107); CO2 31 mmol/L (21-32); CREATININE 2.9 mg/dL (0.7-1.3); GLUCOSE,RANDOM 193 mg/dL (74-106); POTASSIUM 3.5 mmol/L (3.5-5.1); SODIUM 138 mmol/L (136-145)
[2018-05-05] MEDS ORDERED: PANTOPRAZOLE 40 MG TABLET (FP) PO SCH (22:00)
[2018-05-05] MEDS ORDERED: CARVEDILOL 25 MG TABLET (FP) PO SCH (22:00)
[2018-05-05] MEDS ORDERED: traZODone HCL 50 MG TABLET (FP) PO SCH (22:00)
--- NOTE | 2018-05-06 01:09 | PN ---
Progress Note (short form) - Note Progress Note: Laboratory Tests 05/05/18 05/05/18 05/05/18 16:00 16:00 19:00 Hgb 10.1 L Sodium 134 L 138 Potassium 5.7 H 3.5 D labs reviewed, potassium stable after HD. Problem List - Problems (1) Hyperkalemia Code(s): E87.5 - HYPERKALEMIA (2) Chronic anemia Code(s): D64.9 - ANEMIA, UNSPECIFIED (3) Diabetes Code(s): E11.9 - TYPE 2 DIABETES MELLITUS WITHOUT COMPLICATIONS Qualifiers: (4) ESRD (end stage renal disease) Code(s): N18.6 - END STAGE RENAL DISEASE
--- NOTE | 2018-05-06 06:13 | OP ---
DATE OF OPERATION: 05/05/2018 SURGEON: Olman Sy MD RAILCAR CARPENTER: YOAN Gonzalez PROCEDURE: Laparoscopy with placement of peritoneal dialysis catheter. PREOPERATIVE DIAGNOSIS: End-stage renal disease. POSTOPERATIVE DIAGNOSIS: End-stage renal disease. ANESTHESIA: General. ANESTHESIOLOGIST: Cinda Davidson MD OPERATIVE FINDINGS: Peritoneal cavity was free of intraabdominal adhesions or excessive omental fat. OPERATIVE PROCEDURE: Following routine patient identification, general anesthesia was induced. The abdomen was prepped with ChloraPrep. Marcaine 0.5% was infiltrated in the skin of the midline between the umbilicus and the xiphoid process. A skin incision was made. A 5-mm OptiPort was advanced under laparoscopic guidance into the peritoneal cavity. Pneumoperitoneum was established with carbon dioxide to 15 mmHg pressure. A 5-mm angled laparoscope was inserted and abdominal exploration was carried out. Additional Xylocaine was infiltrated superior and to the left of the umbilicus, and an 8-mm incision made. An 8-mm bladeless trocar was then advanced until the tip was seen under the peritoneum. The tip was then advanced inferiorly towards the pelvis where it entered the peritoneal cavity at the upper edge of the true pelvis. A swan-neck curl double-cuff Tenckhoff catheter was then advanced with a process server through the port and deployed into the pelvis. The port was removed leaving the inner cuff on the underside of the fascia. The other end of the catheter was attached to a curved metal tunneler, which was passed into the subcutaneous tissues to exit in the right lower quadrant abdominal wall at the previously chosen site. The cuffs were positioned in the subcutaneous tissue. The Luer Lock Adaptor was attached, and 1 L of saline was run into the peritoneal cavity under gravity drainage in approximately 3 minutes. The bag was dropped to the floor, and the fluid drained freely. The catheter was capped leaving 200 mL of fluid in the patients abdomen. All ports were removed. The wounds were closed with interrupted sutures of 3-0 Vicryl in subcutaneous tissue and subcuticular sutures of 4-0 Biosyn on the skin. Dermabond glue was applied as a dressing, and the catheter was dressed with a Biopatch and Tegaderm. Patient was then taken to the recovery room in stable condition. OLMAN SY M.D. KEILY/[id number]
[2018-05-06] MEDS ORDERED: FUROSEMIDE 40 MG TABLET (FP) PO SCH (10:00)
[2018-05-07 14:15] LABS: HBSAG SCREEN Negative (Negative); HEP A AB, IGM Negative (Negative); HEP B CORE AB, TOT Negative (Negative)
== END 2018-05-05 20:09 | disposition home or self-care (01) | DRG 673 ==
LOC: JASU-SURG 09:55 → JSAMEDAYSX 12:30 → J8W 19:44
PROVIDERS: ADMIT Surgery; ATTEND Surgery
PROC: 5A1D90Z Performance of Urinary Filtration, Continuous, Greater than 18 hours Per Day (ICD-10-PCS; 2018-05-05)
PROC: 0WHG43Z Insertion of Infusion Device into Peritoneal Cavity, Percutaneous Endoscopic Approach (ICD-10-PCS; principal; 2018-05-05 11:30)
DX: I12.0 Hypertensive chronic kidney disease with stage 5 chronic kidney disease or end stage renal disease (principal); N18.6 End stage renal disease; E11.22 Type 2 diabetes mellitus with diabetic chronic kidney disease; E87.5 Hyperkalemia; D64.9 Anemia, unspecified; E78.5 Hyperlipidemia, unspecified
CPT/HCPCS: 36415; 80048; 82962; 84132; 85027; 86704; 86706; 86708; 86803; 87340; 94760; J0885; J1644

== ENCOUNTER 2018-05-18 10:40 | Inpatient (IN) | payer BC ==
[2018-05-18 10:57] VITALS: BMI 28.7
--- NOTE | 2018-05-18 12:25 | PDOC ---
History of Present Illness <Mark Raymond - Last Filed: 05/18/18 12:32> - History of Present Illness Initial Comments: 05/18/18 12:22 "The patient is a 53 year old male, with a significant PMH of DM, HTN, ESRD (, ,), GI bleed, who presents to the emergency department with oozing bleeding from his peritoneal dialysis catheter site since 1am this morning. The patient states he woke up last night when he felt something wet on his stomach and noticed slow continuous ooze like bleeding from his PD shunt. He denies any recent injuries or trauma. The patient states the PD shunt was placed [address] Moreland. The patient denies any recent pain. He denies any recent fevers, chills, abdominal pain, nausea, vomit or pus drainage. He denies any history of bleeding problems. The patient reports he feels slightly weak as per his baseline from dialysis. He states his last complete dialysis was last thursday and is due today. Patients engineer station mainline Dr. Quezada is present in the ER and spoke with patient. The patient denies chest pain, shortness of breath, headache and dizziness. Denies fever, chills, nausea, vomit, diarrhea and constipation. Denies dysuria, frequency, urgency and hematuria. Allergies: Penicillins Eligibility Services Representative: Dr. Quezada Surgeon: Dr Robbins " <Bob Braga - Last Filed: 05/18/18 14:46> - General Chief Complaint: Dialysis Shunt Problem Stated Complaint: POST OP PROBLEM, PD SHUNT BLEEDING Time Seen by Provider: 05/18/18 11:18 Past History <Mark Raymond - Last Filed: 05/18/18 12:32> - Past Medical History Anemia: Yes Asthma: No Cancer: No Cardiac Disorders: No CVA: No COPD: No CHF: No Dementia: No Diabetes: Yes (DIET CONTROLLED) Dialysis: Yes (,,) GI Disorders: Yes (gastic ulcer) Disorders: Yes (RENAL INSUFFICIENCY) HTN: Yes Hypercholesterolemia: No Kidney Stones: (KIDNEY DISEASE) Liver Disease: No Seizures: No Thyroid Disease: No Other medical history: RT CHEST FISTULA - Surgical History Abdominal Surgery: (PD DIALYSIS SHUNT) - Immunization History Immunization Up to Date: Yes - Suicide/Smoking/Psychosocial Hx Smoking Status: No Smoking History: Never smoked Have you smoked in the past 12 months: No Number of Cigarettes Smoked Daily: 0 Information on smoking cessation initiated: No Hx Alcohol Use: No Drug/Substance Use Hx: No Substance Use Type: None Hx Substance Use Treatment: No <OmiBob - Last Filed: 05/18/18 14:46> - Past Medical History Allergies/Adverse Reactions: Allergies Allergy/AdvReac Type Severity Reaction Status Date / Time Penicillins Allergy Intermediate Verified 05/18/18 10:57 Home Medications: Ambulatory Orders Carvedilol [Coreg] 25 mg PO BID #60 tablet 10/01/16 Furosemide [Lasix -] 40 mg PO DAILY 07/30/17 Sevelamer Carbonate [Renvela -] 1,600 mg PO TID 01/27/18 Trazodone HCl 50 mg PO HS 04/07/18 Pantoprazole Sodium 40 mg PO BID 05/04/18 Acetaminophen W/ Codeine #3 [Tylenol # 3 -] 1 tab PO Q6H PRN #12 tablet MDD 4 Review of Systems - Review of Systems Comments:: 05/18/18 12:23 GENERAL/CONSTITUTIONAL: No fever or chills. No weakness. HEAD, EYES, EARS, NOSE AND THROAT: No change in vision. No ear pain or discharge. No sore throat. CARDIOVASCULAR: No chest pain or shortness of breath. RESPIRATORY: No cough, wheezing, or hemoptysis. GASTROINTESTINAL: (+) Slow continuous ooze like bleeding for PD catheter site. No nausea, vomiting, diarrhea or constipation. No abdominal pain. GENITOURINARY: No dysuria, frequency, or change in urination. MUSCULOSKELETAL: No joint or muscle swelling or pain. No neck or back pain. SKIN: No rash NEUROLOGIC: No headache, vertigo, loss of consciousness, or change in strength/ sensation. ENDOCRINE: No increased thirst. No abnormal weight change. HEMATOLOGIC/LYMPHATIC: No anemia, easy bleeding, or history of blood clots. ALLERGIC/IMMUNOLOGIC: No hives or skin allergy." <Bob Braga - Last Filed: 05/18/18 14:46> *Physical Exam - Vital Signs Last Vital Signs Temp Pulse Resp BP Pulse Ox 98.3 F 82 18 136/90 98 05/18/18 10:54 05/18/18 10:54 05/18/18 10:54 05/18/18 10:54 05/18/18 10:54 <Mark Raymond - Last Filed: 05/18/18 12:32> - Vital Signs Last Vital Signs Temp Pulse Resp BP Pulse Ox 98.3 F 82 18 136/90 98 05/18/18 10:54 05/18/18 10:54 05/18/18 10:54 05/18/18 10:54 05/18/18 10:54 - Physical Exam Comments: 05/18/18 12:24 "GENERAL: Awake, alert, and fully oriented, in no acute distress. HEAD: No signs of trauma EYES: PERRLA, EOMI, sclera anicteric, conjunctiva clear ENT: Auricles normal inspection, hearing grossly normal, nares patent, oropharynx clear without exudates. Moist mucosa NECK: Nontender, no stepoffs, Normal ROM, supple, no lymphadenopathy, JVD, or masses LUNGS: Breath sounds equal, clear to auscultation bilaterally. No wheezes, and no crackles HEART: Regular rate and rhythm, normal S1 and S2, no murmurs, rubs or gallops ABDOMEN: + dark red blood oozing from PD insertion site, no surrounding erythema , no palpable hematoma, abdomen otherwise Soft, nontender, normoactive bowel sounds. No guarding, no rebound. No masses EXTREMITIES: Normal range of motion, no edema. No clubbing or cyanosis. No cords, erythema, or tenderness NEUROLOGICAL: Cranial nerves II through XII intact. 5/5 strength and sensation in all extremities, Normal speech, normal gait, normal cerebellar function SKIN: Warm, Dry, normal turgor, no rashes or lesions noted." <Bob Braga - Last Filed: 05/18/18 14:46> ED Treatment Course - LABORATORY CBC & Chemistry Diagram: 05/18/18 13:00 05/18/18 13:00 <Bob Braga - Last Filed: 05/18/18 14:46> Medical Decision Making - Medical Decision Making 05/18/18 12:[address] Robbins ([phone]) at 12:05 pm. Case discussed. <Mark Raymond - Last Filed: 05/18/18 12:32> - Medical Decision Making 05/18/18 12:24 53 M with bleeding from PD site. Pt HD stable, no clinical signs of anemia. No signs of infectious process at this time. - Labs, coags, T&S - Consult Dr. Robbins - Dr. Quezada in ED, will try to arrange HD for pt today 05/18/18 14:15 Labs notable for K 6.7 Dr. Quezada to arrange HD Will admit obs. 05/18/18 14:45 Pt admitted to hospitalist. On schedule for HD today. <Bob Braga - Last Filed: 05/18/18 14:46> *DC/Admit/Observation/Transfer - Attestations Scribe Attestion: 05/18/18 12:31 Documentation prepared by Mark Raymond, acting as medical records library professor for Bob Braga MD. <Mark Raymond - Last Filed: 05/18/18 12:32> - Discharge Dispostion Decision to Admit order: Yes - Attestations Physician Attestion: 05/18/18 14:46 I, Dr. Bob Braga MD, attest that this document has been prepared under my direction and personally reviewed by me in its entirety. I further attest, that it accurately reflects all work, treatment, procedures and medical decision -making performed by me. <Bob Braga - Last Filed: 05/18/18 14:46> Diagnosis at time of Disposition: ESRD (end stage renal disease), Hyperkalemia, Hyponatremia - Referrals Referrals: Mehdi Becerra, RES [Primary Care Provider] -
[2018-05-18 13:19] LABS: BASO % 0.4 % (0-2.0); EOS % 1.9 % (0-4.5); HEMOGLOBIN 10.8 GM/dL (11.7-16.9); LYMPH % 10.5 % (8-40); MCH 35.5 pg (25.7-33.7); MCHC 33.8 g/dl (32.0-35.9); MEAN CELL VOLUME 105.1 fl (80-96); MEAN PLT VOLUME 8.5 fl (7.5-11.1); NEUT % 78.2 % (42.8-82.8); PLATELET COUNT 228 K/MM3 (134-434); RBC 3.04 M/mm3 (4.00-5.60); RDW 15.7 % (11.9-15.9); WHITE BLOOD COUNT 6.5 K/mm3 (4.0-10.0)
[2018-05-18 13:37] LABS: INR 1.03 (0.83-1.09); PROTHROMBIN TIME (PATIENT) 11.6 SEC (9.7-13.0)
[2018-05-18 13:40] LABS: ACTIVATED PTT 31.8 SECONDS (25.2-36.5)
[2018-05-18 13:44] LABS: ALBUMIN 2.7 g/dl (3.4-5.0); ANION GAP 11 (8-16); BILIRUBIN,TOTAL 0.6 mg/dL (0.2-1.0); BLOOD UREA NITROGEN 36 mg/dL (7-18); CALCIUM 8.3 mg/dL (8.5-10.1); CHLORIDE 91 mmol/L (98-107); CO2 22 mmol/L (21-32); GLUCOSE,RANDOM 91 mg/dL (74-106); SGOT/AST 197 U/L (15-37); SGPT/ALT 99 U/L (12-78); TOT PROT 6.9 g/dl (6.4-8.2)
[2018-05-18 14:11] LABS: ALK PHOS 1033 U/L (45-117)
[2018-05-18 14:12] LABS: CREATININE 10.3 mg/dL (0.7-1.3); POTASSIUM 6.7 mmol/L (3.5-5.1); SODIUM 124 mmol/L (136-145)
[2018-05-18] MEDS ORDERED: SODIUM CHLORIDE 250 ML IV PRN (14:29)
[2018-05-18] MEDS ORDERED: CALCIUM GLUCONATE 10% - 1,000 MG/10 ML VIAL IVPB ONE (14:32)
[2018-05-18] MEDS ORDERED: SODIUM BICARBONATE 8.4% 50 MEQ/50 ML DISP.SYRIN IVPUSH ONE (14:33)
--- NOTE | 2018-05-18 14:33 | CONSULT ---
Consult Consult Specialty:: Nephrology Reason for Consultation:: ESRD - History of Present Illness Chief Complaint: bleeding from PD catheter site History of Present Illness: Pt is a 53 year old male with pmhx of ESRD, DM, HTN, and non compliance who I sent to the hospital for bleeding from him PD catheter site. He has had bleeding since last week and it has not gotten better. he denies shortness of breath or palpitations. He is due for HD today. - History Source History Provided By: Patient, Medical Record - Past Medical History Cardio/Vascular: Yes: HTN, Hyperlipdemia Gastrointestinal: Yes: GI Bleed Renal/: Yes: Renal Failure, Renal Inusuff, Hemodialysis Endocrine: Yes: Diabetes Mellitus - Alcohol/Substance Use Hx Alcohol Use: No History of Substance Use: reports: None - Smoking History Smoking history: Never smoked Have you smoked in the past 12 months: No Aproximately how many cigarettes per day: 0 - Social History ADL: Independent Home Medications - Allergies Allergies/Adverse Reactions: Allergies Allergy/AdvReac Type Severity Reaction Status Date / Time Penicillins Allergy Intermediate Verified 05/18/18 10:57 - Home Medications Home Medications: Ambulatory Orders Carvedilol [Coreg] 25 mg PO BID #60 tablet 10/01/16 Furosemide [Lasix -] 40 mg PO DAILY 07/30/17 Sevelamer Carbonate [Renvela -] 1,600 mg PO TID 01/27/18 Trazodone HCl 50 mg PO HS 04/07/18 Pantoprazole Sodium 40 mg PO BID 05/04/18 Acetaminophen W/ Codeine #3 [Tylenol # 3 -] 1 tab PO Q6H PRN #12 tablet MDD 4 Family Disease History - Family Disease History Family Disease History: Diabetes: Brother (CVA), Heart Disease: Father Review of Systems - Review of Systems Constitutional: reports: No Symptoms Eyes: reports: No Symptoms HENT: reports: No Symptoms Neck: reports: No Symptoms Cardiovascular: reports: No Symptoms Respiratory: reports: No Symptoms Gastrointestinal: reports: Other (bleeding from pd catheter site) Musculoskeletal: reports: No Symptoms Integumentary: reports: No Symptoms Neurological: reports: No Symptoms Endocrine: reports: No Symptoms Hematology/Lymphatic: reports: No Symptoms Psychiatric: reports: No Symptoms Physical Exam Vital Signs: Vital Signs Temperature 98.3 F 05/18/18 10:54 Pulse Rate 82 08/07/18 10:54 Respiratory Rate 18 05/18/18 10:54 Blood Pressure 136/90 05/18/18 10:54 O2 Sat by Pulse Oximetry (%) 98 05/18/18 10:54 Constitutional: Yes: Calm Eyes: Yes: Conjunctiva Clear Cardiovascular: Yes: S1, S2 Respiratory: Yes: CTA Bilaterally Gastrointestinal: Yes: Soft, Other (bleeding from PD site) Renal/: Yes: WNL Musculoskeletal: Yes: WNL Edema: Yes Edema: LLE: 1+, RLE: 1+ Neurological: Yes: Oriented Psychiatric: Yes: Oriented Labs: CBC, BMP 05/18/18 13:00 05/18/18 13:00 Problem List - Problems (1) Hyperkalemia Code(s): E87.5 - HYPERKALEMIA (2) Hyponatremia Code(s): E87.1 - HYPO-OSMOLALITY AND HYPONATREMIA (3) ESRD (end stage renal disease) Code(s): N18.6 - END STAGE RENAL DISEASE (4) Anemia Code(s): D64.9 - ANEMIA, UNSPECIFIED Qualifiers: Anemia type: due to chronic kidney disease Chronic kidney disease stage: on chronic dialysis Qualified Code(s): N18.6 - End stage renal disease; D63.1 - Anemia in chronic kidney disease; D63.1 - Anemia in chronic kidney disease; Z99.2 - Dependence on renal dialysis; Z99.2 - Dependence on renal dialysis; Z99.2 - Dependence on renal dialysis; Z99.2 - Dependence on renal dialysis Assessment/Plan Current Medications Generic Name Dose Route Start Last Admin Trade Name Freq PRN Reason Stop Dose Admin Epoetin Dylon 6,000 unit 05/18/18 14:29 Epogen - IVPUSH 05/18/18 14:30 ONCE ONE Sodium Chloride 250 mls @ 3,000 mls/hr 05/18/18 14:29 Normal Saline - IV 05/19/18 14:29 PRN PRN Hypotension during Dialysis Impression 1. ESRD 2. DM 3. hyponatremia 4. HTN 5. obesity 6. anemia 7. iron deficiency 8. CHF 9. anemia 10. hyperkalemia 11. liver mass 12. hx GI bleed 13. diabetic nephropathy 14. non compliance with HD treatment regimen 15. bleeding from PD catheter site Plan - HD today - will treat potassium with HD - surgery eval for bleeding from pd catheter - pt not compliant with HD - epogen for anemia Dr Quezada
[2018-05-18] MEDS ORDERED: CALCIUM GLUCONATE 10% - 1,000 MG/10 ML VIAL ONE (14:35)
[2018-05-18] MEDS ORDERED: SODIUM BICARBONATE 8.4% - 50 ML ONE (14:36)
[2018-05-18] MEDS ORDERED: EPOETIN ALFA 3,000 UNIT/1 ML ML IVPUSH ONE (14:45)
--- NOTE | 2018-05-18 15:28 | PN ---
Teaching Attending Note Name of Resident: Sarthak Montana ATTENDING PHYSICIAN STATEMENT I saw and evaluated the patient. I reviewed the resident's note and discussed the case with the resident. I agree with the resident's findings and plan as documented. SUBJECTIVE: OBJECTIVE: Vital Signs Temperature 97.9 F 05/18/18 15:23 Pulse Rate 86 05/18/18 15:23 Respiratory Rate 19 05/18/18 15:23 Blood Pressure 159/86 05/18/18 15:23 O2 Sat by Pulse Oximetry (%) 99 05/18/18 15:23 CBCD WBC 6.5 K/mm3 (4.0-10.0) 05/18/18 13:00 RBC 3.04 M/mm3 (4.00-5.60) L 05/18/18 13:00 Hgb 10.8 GM/dL (11.7-16.9) L 05/18/18 13:00 Hct 32.0 % (35.4-49) L 05/18/18 13:00 MCV 105.1 fl (80-96) H 05/18/18 13:00 MCHC 33.8 g/dl (32.0-35.9) 05/18/18 13:00 RDW 15.7 % (11.9-15.9) 05/18/18 13:00 Plt Count 228 K/MM3 (134-434) 05/18/18 13:00 MPV 8.5 fl (7.5-11.1) 05/18/18 13:00 CMP Sodium 124 mmol/L (136-145) L* D 05/18/18 13:00 Potassium 6.7 mmol/L (3.5-5.1) H* D 05/18/18 13:00 Chloride 91 mmol/L (98-107) L 05/18/18 13:00 Carbon Dioxide 22 mmol/L (21-32) D 05/18/18 13:00 Anion Gap 11 (8-16) 05/18/18 13:00 BUN 36 mg/dL (7-18) H 05/18/18 13:00 Creatinine 10.3 mg/dL (0.7-1.3) H* 05/18/18 13:00 Creat Clearance w eGFR 5.34 (>60) 05/18/18 13:00 Random Glucose 91 mg/dL (74-106) D 05/18/18 13:00 Calcium 8.3 mg/dL (8.5-10.1) L 05/18/18 13:00 Total Bilirubin 0.6 mg/dL (0.2-1.0) 05/18/18 13:00 AST 197 U/L (15-37) H D 05/18/18 13:00 ALT 99 U/L (12-78) H D 05/18/18 13:00 Alkaline Phosphatase 1033 U/L (45-117) H 05/18/18 13:00 Total Protein 6.9 g/dl (6.4-8.2) 05/18/18 13:00 Albumin 2.7 g/dl (3.4-5.0) L 05/18/18 13:00 Home Medications Medication Instructions Recorded Carvedilol [Coreg] 25 mg PO BID #60 tablet 10/01/16 Furosemide [Lasix -] 40 mg PO DAILY 07/30/17 Sevelamer Carbonate [Renvela -] 1,600 mg PO TID 01/27/18 Trazodone HCl 50 mg PO HS 04/07/18 Pantoprazole Sodium 40 mg PO BID 05/04/18 Acetaminophen W/ Codeine #3 1 tab PO Q6H PRN #12 tablet MDD 4 05/05/18 [Tylenol # 3 -] Current Medications Generic Name Dose Route Start Last Admin Trade Name Freq PRN Reason Stop Dose Admin Sodium Chloride 250 mls @ 3,000 mls/hr 05/18/18 14:29 Normal Saline - IV 05/19/18 14:29 PRN PRN Hypotension during Dialysis ASSESSMENT AND PLAN:
[2018-05-18 16:08] VITALS: TEMP 98.1
--- NOTE | 2018-05-18 16:24 | EKG ---
Test Reason : Blood Pressure : / mmHG Vent. Rate : 081 BPM Atrial Rate : 081 BPM P-R Int : 192 ms QRS Dur : 104 ms QT Int : 392 ms P-R-T Axes : 000 -75 100 degrees QTc Int : 455 ms NORMAL SINUS RHYTHM LEFT ANTERIOR FASCICULAR BLOCK T WAVE ABNORMALITY, CONSIDER LATERAL ISCHEMIA ABNORMAL ECG WHEN COMPARED WITH ECG OF 06-APR-2018 17:47, NO SIGNIFICANT CHANGE WAS FOUND Confirmed by Ricardo Peacock MD ([id number]) on 05/18/2018 4:24:19 PM Referred By: Confirmed By:Ricardo Peacock MD
--- NOTE | 2018-05-18 16:31 | PN ---
Progress Note (short form) - Note Progress Note: Asked to evaluate patient bleeding from PD catheter site. Patient states he awoke last night and noticed blood saturating his dressings over PD site. He is approximately 1.5 weeks post op PD catheter placement. He denies any trauma to the area or pulling on the tubing site. Overall he feels well and denies any Fever, chills, N/V/D, CP or SOB. Vital Signs Temp 98.1 F 05/18/18 15:30 Pulse 81 05/18/18 16:05 Resp 18 05/18/18 16:05 BP 156/104 05/18/18 16:05 Pulse Ox 99 05/18/18 15:23 Intake & Output 05/17/18 05/18/18 05/18/18 23:59 11:59 23:59 Weight 189 lb Other: Height 5 ft 8 in Body Mass Index (BMI) 28.7 Weight Measurement Method Standing Scale CBC, BMP 05/18/18 13:00 05/18/18 13:00 PE. A&Ox3, NAD unlabored resp on RA Abd: Obese, non-tender, PD catheter site dressing saturated with surya blood and clotting extending over tubing. Site c/d/i with clean boarders, surrounding tissue intact with no tracking erythema, mild bruising appropriate to status, no evidence of hematoma or active collection on palpation, No d/c with gentle pressure. Site redressed with pressure dressing and ABD wrapped over remaining tubing and secured to abdomen. <Maritza Hernandez - Last Filed: 05/18/18 16:21> - Note Progress Note: History reviewed. patient had called my office today complaining of bleeding from catheter exit site. i offered to see him immediately in my office but he refused and presented to the ER. Findings reviewed with PA and ER staff. No reason for bleeding 2 weeks after surgery unless he is pulling on catheter and disrupting healing tissues. I planned to see him in AM but he has left the hospital without a discharge order. I will see him in the office if he returns. <Olman Robbins - Last Filed: 05/18/18 22:29> Problem List - Problems (1) ESRD (end stage renal disease) Assessment/Plan: PD catheter site bleeding appears to have resolved. 1) Maintain clean dry dressing 2) Continue HD schedule 3) Follow up with Dr Robbins as scheduled Evaluation and plan discussed with Dr Robbins Code(s): N18.6 - END STAGE RENAL DISEASE <Maritza Hernandez - Last Filed: 05/18/18 16:21>
--- NOTE | 2018-05-18 16:53 | HP ---
<Saritha Del Real - Last Filed: 05/18/18 17:51> CHIEF COMPLAINT: "bleeding at peritoneal catheter site" PCP: HISTORY OF PRESENT ILLNESS: Patient is a 53 y/o male with a history of DM, HTN, ESRD (, , Thu), eye stroke, who presents because he has bleeding at the site of his peritoneal catheter. Patient had the peritoneal catheter placed a week and a half ago by Dr. Moreland. He noticed bleeding at the site yesterday and came in because the bleeding did not stop. Patient reports he is on ESRD because of "HTN in his kidney's". He reports his diabetes is controlled with diet. He has no other complaints. Patient chose peritoneal dialysis so that he does not have to go to a facility three times a week. Patient makes urine. Reports he is compliant with his treatments and medications. Patient has no complaints at this time. ER course was notable for: (1) (2) (3) Recent Travel: PAST MEDICAL HISTORY: DM, HTN, ESRD (, , Thu), eye stroke PAST SURGICAL HISTORY: L eye cataract, retinal detachment ( 2011) Social History: Smoking: denies Alcohol: 1 glass of wine a night Drugs: denies Family History: mother has DM and HTN Allergies Penicillins Allergy (Intermediate, Verified 05/18/18 10:57), throat swells up HOME MEDICATIONS: Home Medications Medication Instructions Recorded Carvedilol [Coreg] 25 mg PO BID #60 tablet 10/01/16 Furosemide [Lasix -] 40 mg PO DAILY 07/30/17 Sevelamer Carbonate [Renvela -] 1,600 mg PO TID 01/27/18 Trazodone HCl 50 mg PO HS 04/07/18 Pantoprazole Sodium 40 mg PO BID 05/04/18 Acetaminophen W/ Codeine #3 1 tab PO Q6H PRN #12 tablet MDD 4 05/05/18 [Tylenol # 3 -] REVIEW OF SYSTEMS CONSTITUTIONAL: Absent: fever, chills, diaphoresis, generalized weakness, malaise, loss of appetite, weight change HEENT: Absent: rhinorrhea, ear pain, eye pain, visual changes CARDIOVASCULAR: Absent: chest pain, syncope, palpitations, irregular heart rate, lightheadedness , peripheral edema RESPIRATORY: Absent: cough, shortness of breath, , wheezing, stridor, hemoptysis GASTROINTESTINAL: Absent: abdominal pain, abdominal distension, nausea, vomiting, diarrhea, constipation, melena, hematochezia GENITOURINARY: Absent: dysuria, frequency, urgency, hesitancy, hematuria, flank pain, genital pain MUSCULOSKELETAL: Absent: myalgia, arthralgia, joint swelling, SKIN: Absent: rash, itching, pallor HEMATOLOGIC/IMMUNOLOGIC: bleeding at site of catheter Absent: lymphadenopathy, frequent infections NEUROLOGIC: Absent: headache, focal weakness or paresthesias, dizziness, unsteady gait, seizure, mental status changes, PSYCHIATRIC: Absent: anxiety, depression, suicidal or homicidal ideation, hallucinations. PHYSICAL EXAMINATION Vital Signs - 24 hr 05/18/18 05/18/18 05/18/18 10:54 15:23 15:30 Temperature 98.3 F 97.9 F 98.1 F Pulse Rate 82 74 Pulse Rate [ 86 Right Radial] Respiratory 18 19 18 Rate Blood Pressure 136/90 179/98 Blood Pressure 159/86 [Left Arm] O2 Sat by Pulse 98 99 Oximetry (%) 05/18/18 05/18/18 15:35 16:05 Temperature Pulse Rate 74 81 Pulse Rate [ Right Radial] Respiratory 18 18 Rate Blood Pressure 169/101 156/104 Blood Pressure [Left Arm] O2 Sat by Pulse Oximetry (%) GENERAL: Awake, alert, and fully oriented, in no acute distress. HEAD: Normal with no signs of trauma. EYES: R eye opaque cornea, LE PERRL EARS, NOSE, Moist mucous membranes. NECK: Normal range of motion, supple without lymphadenopathy, JVD, or masses. LUNGS: Breath sounds equal, clear to auscultation bilaterally. HEART: Regular rate and rhythm, normal S1 and S2 without murmur, rub or gallop. port at R chest ABDOMEN: Soft, tender at sites of incision, periheral catheter intact non erythematous, no signs of bleeding, abdomen distended LOWER EXTREMITIES: 2+ pulses, warm, well-perfused. No calf tenderness. No peripheral edema. PSYCHIATRIC: Cooperative. Good eye contact. Appropriate mood and affect. SKIN: Warm, dry, normal turgor, no rashes or lesions noted, normal capillary refill. Laboratory Results - last 24 hr 05/18/18 05/18/18 05/18/18 13:00 13:00 13:00 WBC 6.5 RBC 3.04 L Hgb 10.8 L Hct 32.0 L MCV 105.1 H MCH 35.5 H MCHC 33.8 RDW 15.7 Plt Count 228 MPV 8.5 Absolute Neuts (auto) 5.0 Neutrophils % 78.2 Lymphocytes % 10.5 D Monocytes % 9.0 Eosinophils % 1.9 D Basophils % 0.4 Nucleated RBC % 0 PT with INR 11.60 INR 1.03 PTT (Actin FS) 31.8 Sodium 124 L* D Potassium 6.7 H* D Chloride 91 L Carbon Dioxide 22 D Anion Gap 11 BUN 36 H Creatinine 10.3 H* Creat Clearance w eGFR 5.34 Random Glucose 91 D Calcium 8.3 L Total Bilirubin 0.6 AST 197 H D ALT 99 H D Alkaline Phosphatase 1033 H Total Protein 6.9 Albumin 2.7 L Blood Type Antibody Screen 05/18/18 13:00 WBC RBC Hgb Hct MCV MCH MCHC RDW Plt Count MPV Absolute Neuts (auto) Neutrophils % Lymphocytes % Monocytes % Eosinophils % Basophils % Nucleated RBC % PT with INR INR PTT (Actin FS) Sodium Potassium Chloride Carbon Dioxide Anion Gap BUN Creatinine Creat Clearance w eGFR Random Glucose Calcium Total Bilirubin AST ALT Alkaline Phosphatase Total Protein Albumin Blood Type O POSITIVE Antibody Screen Negative ASSESSMENT/PLAN: Patient is a 53 y/o male with a history of DM, HTN, ESRD (T, , Thu), eye stroke, who presents because he has bleeding at the site of his peritoneal catheter. He was found to have hyponatremia, hyperkalemia, and transaminitis. #ESRD - receiving dialysis today - monitor hyponatremia - monitor hyperkalemia, peaked T waves on EKG - new peritoneal catheter by Dr. Moreland one week and a half ago - f/u with Dr. Chavez #transaminits - AST: 197 - ALT: 99 - Alk phosp: 1033 - patient has history of transaminitis, noted in the past it was due to mediations (metformin) #HTN - Furosemide 40 mg po - Carvedilol - Lisinopril held (need to find out dose) #DM - diet controlled - diabetic diet - SS FEN - NS Dispo: Visit type - Emergency Visit Emergency Visit: No - New Patient This patient is new to me today: Yes Date on this admission: 05/18/18 - Critical Care Critical Care patient: No Hospitalist Screening - Colonoscopy Questionnaire Colonoscopy Questionnaire: Colonoscopy Questionnaire - Patient: 50 - 75 years old and never had a screening colonoscopy: Unknown History of colon or rectal polyps, or CA: Unknown History of IBD, Crohn's disease or UC: Unknown History of abdominal radiation therapy as a child: Unknown - Relative: 1 with colon or rectal CA, or polyps at age 60 or younger: Unknown Colon or rectal CA diagnosed at age 45 or younger: Unknown Multiple relatives with colon or rectal CA: Unknown - Outcome: Screening Result: Negative Screen <Argentina Carmichael - Last Filed: 05/18/18 23:39> Patient signed against medical advice post dialysis Risks explained HOME MEDICATIONS: Home Medications Medication Instructions Recorded Carvedilol [Coreg] 25 mg PO BID #60 tablet 10/01/16 Furosemide [Lasix -] 40 mg PO DAILY 07/30/17 Sevelamer Carbonate [Renvela -] 1,600 mg PO TID 01/27/18 Trazodone HCl 50 mg PO HS 04/07/18 Pantoprazole Sodium 40 mg PO BID 05/04/18 Acetaminophen W/ Codeine #3 1 tab PO Q6H PRN #12 tablet MDD 4 05/05/18 [Tylenol # 3 -] Vital Signs - 24 hr 05/18/18 05/18/18 05/18/18 10:54 15:23 15:30 Temperature 98.3 F 97.9 F 98.1 F Pulse Rate 82 74 Pulse Rate [ 86 Right Radial] Respiratory 18 19 18 Rate Blood Pressure 136/90 179/98 Blood Pressure 159/86 [Left Arm] O2 Sat by Pulse 98 99 Oximetry (%) 05/18/18 05/18/18 05/18/18 15:35 16:05 16:35 Temperature Pulse Rate 74 81 89 Pulse Rate [ Right Radial] Respiratory 18 18 18 Rate Blood Pressure 169/101 156/104 151/101 Blood Pressure [Left Arm] O2 Sat by Pulse Oximetry (%) 05/18/18 05/18/18 05/18/18 17:05 17:35 18:05 Temperature Pulse Rate 84 86 85 Pulse Rate [ Right Radial] Respiratory 18 18 18 Rate Blood Pressure 147/90 143/94 144/87 Blood Pressure [Left Arm] O2 Sat by Pulse Oximetry (%) 05/18/18 05/18/18 18:35 18:40 Temperature Pulse Rate 86 87 Pulse Rate [ Right Radial] Respiratory 18 18 Rate Blood Pressure 150/98 159/102 Blood Pressure [Left Arm] O2 Sat by Pulse Oximetry (%) Laboratory Results - last 24 hr 05/18/18 05/18/18 05/18/18 13:00 13:00 13:00 WBC 6.5 RBC 3.04 L Hgb 10.8 L Hct 32.0 L MCV 105.1 H MCH 35.5 H MCHC 33.8 RDW 15.7 Plt Count 228 MPV 8.5 Absolute Neuts (auto) 5.0 Neutrophils % 78.2 Lymphocytes % 10.5 D Monocytes % 9.0 Eosinophils % 1.9 D Basophils % 0.4 Nucleated RBC % 0 Hypochromia 1+ Platelet Estimate Adequate Macrocytosis 1+ PT with INR 11.60 INR 1.03 PTT (Actin FS) 31.8 Sodium 124 L* D Potassium 6.7 H* D Chloride 91 L Carbon Dioxide 22 D Anion Gap 11 BUN 36 H Creatinine 10.3 H* Creat Clearance w eGFR 5.34 Random Glucose 91 D Calcium 8.3 L Total Bilirubin 0.6 AST 197 H D ALT 99 H D Alkaline Phosphatase 1033 H Total Protein 6.9 Albumin 2.7 L Blood Type Antibody Screen 05/18/18 05/18/18 13:00 18:30 WBC RBC Hgb Hct MCV MCH MCHC RDW Plt Count MPV Absolute Neuts (auto) Neutrophils % Lymphocytes % Monocytes % Eosinophils % Basophils % Nucleated RBC % Hypochromia Platelet Estimate Macrocytosis PT with INR INR PTT (Actin FS) Sodium 133 L Potassium 3.6 D Chloride 91 L Carbon Dioxide 30 D Anion Gap 12 BUN 10 D Creatinine 3.3 H Creat Clearance w eGFR 19.86 Random Glucose 105 Calcium 7.6 L Total Bilirubin AST ALT Alkaline Phosphatase Total Protein Albumin Blood Type O POSITIVE Antibody Screen Negative ASSESSMENT/PLAN: Hospitalist Screening - Colonoscopy Questionnaire Colonoscopy Questionnaire: Colonoscopy Questionnaire
[2018-05-18] MEDS ORDERED: traZODone HCL 50 MG TABLET (FP) PO PRN (17:59)
[2018-05-18] MEDS ORDERED: SEVELAMER CARBONATE 800 MG TAB (FP) PO SCH (18:30)
[2018-05-18 18:57] VITALS: BP 159/102; PULSE 87
[2018-05-18 19:47] LABS: MACROCYTOSIS 1+
[2018-05-18 19:48] LABS: PLATELET ESTIMATE ADEQUATE
[2018-05-18 19:53] LABS: ANION GAP 12 (8-16); BLOOD UREA NITROGEN 10 mg/dL (7-18); CALCIUM 7.6 mg/dL (8.5-10.1); CHLORIDE 91 mmol/L (98-107); CO2 30 mmol/L (21-32); CREATININE 3.3 mg/dL (0.7-1.3); GLUCOSE,RANDOM 105 mg/dL (74-106); POTASSIUM 3.6 mmol/L (3.5-5.1); SODIUM 133 mmol/L (136-145)
--- NOTE | 2018-05-18 20:48 | HOSP ---
Physical Examination Vital Signs: Vital Signs Temperature 98.1 F 05/18/18 15:30 Pulse Rate 87 05/18/18 18:40 Respiratory Rate 18 05/18/18 18:40 Blood Pressure 159/102 05/18/18 18:40 O2 Sat by Pulse Oximetry (%) 99 05/18/18 15:23 Labs: CBC, BMP 05/18/18 13:00 05/18/18 18:30 Hospitalist Encounter Assessment: Was notified by nurse that patient has eloped. Visit type - Emergency Visit Emergency Visit: No - New Patient This patient is new to me today: Yes Date on this admission: 05/18/18 - Critical Care Critical Care patient: No
[2018-05-18] MEDS ORDERED: PANTOPRAZOLE 40 MG TABLET (FP) PO SCH (22:00)
[2018-05-18] MEDS ORDERED: INSULIN SLIDING SCALE (NOVOLOG) 1 VIAL SQ SCH (22:00)
[2018-05-18] MEDS ORDERED: HEPARIN NA (PORCINE) 5,000 UNITS/ML 1ML VIAL SQ SCH (22:00)
[2018-05-18] MEDS ORDERED: CARVEDILOL 25 MG TABLET (FP) PO SCH (22:00)
[2018-05-19] MEDS ORDERED: FUROSEMIDE 40 MG TABLET (FP) PO SCH (10:00)
== END 2018-05-18 19:15 | disposition left against medical advice (07) | DRG 919 ==
LOC: JER 10:40 → JERBED 14:46 → OBSVTOIN 16:39
PROVIDERS: ADMIT Internal Medicine; ATTEND Internal Medicine
PROC: 5A1D90Z Performance of Urinary Filtration, Continuous, Greater than 18 hours Per Day (ICD-10-PCS; principal; 2018-05-18)
DX: T85.838A Hemorrhage due to other internal prosthetic devices, implants and grafts, initial encounter (principal); N18.6 End stage renal disease; E87.1 Hypo-osmolality and hyponatremia; I12.0 Hypertensive chronic kidney disease with stage 5 chronic kidney disease or end stage renal disease; Y83.9 Surgical procedure, unspecified as the cause of abnormal reaction of the patient, or of later complication, without mention of misadventure at the time of the procedure; E87.5 Hyperkalemia; Z99.2 Dependence on renal dialysis; E11.22 Type 2 diabetes mellitus with diabetic chronic kidney disease; R74.0 Nonspecific elevation of levels of transaminase and lactic acid dehydrogenase [LDH]; D63.1 Anemia in chronic kidney disease
CPT/HCPCS: 36415; 80048; 80053; 85025; 85610; 85730; 86850; 86900; 86901; 93005; 93010; 99282-25; G0378; J0885

== ENCOUNTER 2018-06-02 09:38 | Inpatient (IN) | payer BC ==
[2018-06-02 10:23] VITALS: BMI 29.3
--- NOTE | 2018-06-02 10:52 | PDOC ---
History of Present Illness - General Chief Complaint: Injury Stated Complaint: Injury Time Seen by Provider: 06/02/18 10:08 History Source: Patient Exam Limitations: No Limitations - History of Present Illness Initial Comments: 06/02/18 10:53 53y M hx of dm, htn, ESRD (, , , last dialysis ), GIB presents with complaint of weakness. Pt states that he missed dialysis yesterday as he was feeling alittle weak - had it resheduled for thursday. STates that last night around 11PM, he felt generally weak, walked to the kitchen to get some cherries and had both legs give out. He states he fell gently and was able to get back to bed for the night and today still feels generally weak. The pt deniesany headache, chest pain, abd pain, back pain, neck pain, fever/chills, cough, dizziness, sob, headache, diziness, focal weakness [facility] p[facility]: anthony rodriguez Past History - Past Medical History Allergies/Adverse Reactions: Allergies Allergy/AdvReac Type Severity Reaction Status Date / Time Penicillins Allergy Intermediate Verified 06/02/18 09:43 Home Medications: Ambulatory Orders Carvedilol [Coreg] 25 mg PO BID #60 tablet 10/01/16 Furosemide [Lasix -] 40 mg PO DAILY 07/30/17 Sevelamer Carbonate [Renvela -] 1,600 mg PO TID 01/27/18 traZODone HCL [Trazodone HCl] 50 mg PO HS 04/07/18 Pantoprazole Sodium 40 mg PO BID 05/04/18 Anemia: Yes Asthma: No Cancer: No Cardiac Disorders: No CVA: No COPD: No CHF: No Dementia: No Diabetes: Yes (DIET CONTROLLED) Dialysis: Yes (,,) GI Disorders: Yes (gastic ulcer) Disorders: Yes (RENAL INSUFFICIENCY) HTN: Yes Hypercholesterolemia: No Kidney Stones: (KIDNEY DISEASE) Liver Disease: No Seizures: No Thyroid Disease: No - Surgical History Abdominal Surgery: (PD DIALYSIS SHUNT) - Immunization History Immunization Up to Date: Yes - Suicide/Smoking/Psychosocial Hx Smoking Status: No Smoking History: Never smoked Have you smoked in the past 12 months: No Number of Cigarettes Smoked Daily: 0 Information on smoking cessation initiated: No Hx Alcohol Use: No Drug/Substance Use Hx: No Substance Use Type: None Hx Substance Use Treatment: No Review of Systems - Review of Systems Able to Perform ROS?: Yes Comments:: 06/02/18 11:01 Constitutional - +generalized weakness no reported Fever, Chills, HEENT: no reported vision changes, sore throat Respiratory: no reported cough, sob, hemoptysis Cardiac: no reported chest pain, palpitations, light headedness, leg swelling Abd/GI: no reported abd pain, nausea, vomiting, blood per rectum, melena, diarrhea : no reported dysuria, frequency, discharge Musculskelatal - no reported back pain, joint swelling skin - no reported bruising, erythema, rash neurological: no reported headache, numbness, focal weakness, tingling, ataxia, hematologic: no reported easy bruising, easy bleeding *Physical Exam - Vital Signs Last Vital Signs Temp Pulse Resp BP Pulse Ox 99.9 F H 82 16 159/82 100 06/02/18 09:40 06/02/18 09:40 06/02/18 09:40 06/02/18 09:40 06/02/18 09:40 - Physical Exam Comments: 06/02/18 11:01 GENERAL: The patient is awake, alert, and fully oriented, Nontoxic - in no acute distress. HEAD: Normocephalic, atraumatic. EYES: extraocular movements intact, sclera anicteric, conjunctiva clear. ENT: Normal voice, Moist mucous membranes. NECK: Normal range of motion, supple CHEST/LUNGS: permcath in R chest , Breath sounds equal, clear to auscultation bilaterally. No wheezes, no rhonchi, no rales. HEART: Regular rate and rhythm, normal S1 and S2 without murmur, rub or gallop. ABDOMEN: Soft, nontender, No guarding, no rebound. . No CVA tenderness EXTREMITIES: Normal range of motion, trace edema. NEUROLOGICAL: No facial assymetry, Normal speech, PSYCH: Normal mood, normal affect. SKIN: Warm, Dry, normal turgor, Heart Score/ECG Review - ECG Impressions Comment:: 06/02/18 11:30 Twelve-lead EKG was performed and reviewed by me. There is normal sinus rhythm with a normal rate. 1st degree av block right superior axis devaiqtion ED Treatment Course - LABORATORY CBC & Chemistry Diagram: 06/02/18 11:05 06/02/18 11:05 - RADIOLOGY Radiology Studies Ordered: Category Date Time Status CHEST X-RAY PORTABLE* [RAD] Stat Radiology 06/02/18 10:49 Ordered Medical Decision Making - Medical Decision Making 06/02/18 10:53 06/02/18 12:57 pts K noted to be elevated will give hyperK cocktail will notify renal for dialysis will admit for furthermangaement 06/02/18 13:[address] ramos agrees pt needs dialysis will aln for dialysis will admit to hospitalist team for further mangement *DC/Admit/Observation/Transfer Diagnosis at time of Disposition: Hyperkalemia, ESRD (end stage renal disease) - Discharge Dispostion Condition at time of disposition: Guarded Decision to Admit order: Yes - Referrals - Patient Instructions - Post Discharge Activity
[2018-06-02 11:15] LABS: BASO % 0.4 % (0-2.0); EOS % 0.1 % (0-4.5); HEMATOCRIT 30.6 % (35.4-49); HEMOGLOBIN 10.6 GM/dL (11.7-16.9); LYMPH % 5.1 % (8-40); MCH 35.6 pg (25.7-33.7); MCHC 34.6 g/dl (32.0-35.9); MEAN PLT VOLUME 8.6 fl (7.5-11.1); MONO % 10.2 % (3.8-10.2); NEUT % 84.2 % (42.8-82.8); PLATELET COUNT 219 K/MM3 (134-434); RBC 2.97 M/mm3 (4.00-5.60); RDW 15.1 % (11.9-15.9); WHITE BLOOD COUNT 7.7 K/mm3 (4.0-10.0)
[2018-06-02 11:47] LABS: ALBUMIN 2.4 g/dl (3.4-5.0); ANION GAP 18 MMOL/L (8-16); BILIRUBIN,TOTAL 0.9 mg/dL (0.2-1.0); BLOOD UREA NITROGEN 73 mg/dL (7-18); CALCIUM 7.1 mg/dL (8.5-10.1); CHLORIDE 90 mmol/L (98-107); CO2 14 mmol/L (21-32); GLUCOSE,RANDOM 104 mg/dL (74-106); MAGNESIUM 1.6 mg/dL (1.8-2.4); SGOT/AST 135 U/L (15-37); TOT PROT 6.6 g/dl (6.4-8.2)
[2018-06-02 11:59] LABS: ALK PHOS 952 U/L (45-117); SGPT/ALT 105 U/L (12-78)
[2018-06-02 12:33] LABS: CREATININE 12.6 mg/dL (0.7-1.3)
[2018-06-02 12:34] LABS: POTASSIUM 7.8 mmol/L (3.5-5.1); SODIUM 122 mmol/L (136-145)
[2018-06-02] MEDS ORDERED: INSULIN REGULAR HUMAN 100 UNITS/ML *VIAL IVPUSH ONE (12:56)
[2018-06-02] MEDS ORDERED: SODIUM BICARBONATE 4.2% 5 MEQ/10 ML DISP.SYRIN IVPUSH ONE ×2 (12:56→14:04)
[2018-06-02] MEDS ORDERED: DEXTROSE 50%-WATER - 25 GM/50 ML VIAL IVPUSH ONE (12:56)
[2018-06-02] MEDS ORDERED: ALBUTEROL SO4 0.042% IH SOL 1.25 MG/3 ML VIAL.NEB NEB ONE (12:56)
--- NOTE | 2018-06-02 13:29 | HP ---
CHIEF COMPLAINT:weakness , fall , missed HD PCP:Mehdi Becerra HISTORY OF PRESENT ILLNESS: 53yo M with significant history of ESRD (/), DM, HTN, gastric ulcer who presents to the ER today due to feeling weak and having his legs "give out from under him last night when he was getting out of bed to refrigerator he fell on his right side , but denies any loc, dizzines, light headedness, or any seizure activities,He call 91 today morning and brought him to ED. ." Pt reports he missed his dialysis Thursday because he was not feeling well and was reschedulled for today. Pt endorses a nonproductive cough recently and feeling warm and sweating , however has never taken his temperature. He has a known history of noncompliance and has had to have emergent dialysis before. 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) lightheadedness/ dizziness, rhinorrhea, ear pain, dysphagia, shortness of breath, CP/discomfort, palpitation, abdominal pain, N/V/D/C, leg swelling ER course was notable for: (1)cbc, cmp (2)Hyperkalemia medical treatment (3)consult nephrology Dr Quezada Recent Travel:denies PAST MEDICAL HISTORY: ESRD (/), DM, and HTN, gastric ulcer, anemia , retina detachment PAST SURGICAL HISTORY: cataract B/l , retina detachment Social History: Smoking:denies Alcohol:glass of wine daily Drugs: denies Family History:DM Allergies Penicillins Allergy (Intermediate, Verified 06/02/18 09:43) HOME MEDICATIONS: Home Medications Medication Instructions Recorded Carvedilol [Coreg] 25 mg PO BID #60 tablet 10/01/16 Furosemide [Lasix -] 40 mg PO DAILY 07/30/17 Sevelamer Carbonate [Renvela -] 1,600 mg PO TID 01/27/18 traZODone HCL [Trazodone HCl] 50 mg PO HS 04/07/18 Pantoprazole Sodium 40 mg PO BID 05/04/18 REVIEW OF SYSTEMS CONSTITUTIONAL: Absent: fever, chills, diaphoresis, generalized weakness, malaise, loss of appetite, weight change HEENT: Absent: rhinorrhea, nasal congestion, throat pain, throat swelling, difficulty swallowing, mouth swelling, ear pain, eye pain, visual changes CARDIOVASCULAR: Absent: chest pain, syncope, palpitations, irregular heart rate, lightheadedness , peripheral edema RESPIRATORY: Absent: cough, shortness of breath, dyspnea with exertion, orthopnea, wheezing, stridor, hemoptysis GASTROINTESTINAL: Absent: abdominal pain, abdominal distension, nausea, vomiting, diarrhea, constipation, melena, hematochezia GENITOURINARY: Absent: dysuria, frequency, urgency, hesitancy, hematuria, flank pain, genital pain MUSCULOSKELETAL: Absent: myalgia, arthralgia, joint swelling, back pain, neck pain SKIN: Absent: rash, itching, pallor HEMATOLOGIC/IMMUNOLOGIC: Absent: easy bleeding, easy bruising, lymphadenopathy, frequent infections ENDOCRINE: Absent: unexplained weight gain, unexplained weight loss, heat intolerance, cold intolerance NEUROLOGIC: Absent: headache, focal weakness or paresthesias, dizziness, unsteady gait, seizure, mental status changes, bladder or bowel incontinence PSYCHIATRIC: Absent: anxiety, depression, suicidal or homicidal ideation, hallucinations. PHYSICAL EXAMINATION Vital Signs - 24 hr 06/02/18 09:40 Temperature 99.9 F H Pulse Rate 82 Respiratory 16 Rate Blood Pressure 159/82 O2 Sat by Pulse 100 Oximetry (%) GENERAL: AAOx3 in NAD HEAD: NC/AT , EYES: LEFT eye LUI, EOMI , sclera anicteric, conjunctiva clear. 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 NECK: Normal range of motion, supple LUNGS: CTA B/L . No wheezes, and no crackles. No accessory muscle use. HEART: sinus rhythm, normal S1 and S2 without murmur, rub or gallop. ABDOMEN: Soft, right upper and lower quadrant tenderness, distended, normative bowel sounds, no guarding, UPPER EXTREMITIES: 2+ pulses, warm, well-perfused. No cyanosis. No clubbing. No peripheral edema. LOWER EXTREMITIES: 2+ pulses, warm, well-perfused. No calf tenderness. No peripheral edema. left leg 3-4/5 strength , sensation intact. right leg 5/5 proximal in distal , sensation intact. NEUROLOGICAL: Cranial nerves II-XII intact. Normal speech. PSYCHIATRIC: Cooperative. Good eye contact. Appropriate mood and affect. SKIN: Warm, dry, normal turgor, Laboratory Results - last 24 hr 06/02/18 06/02/18 11:05 11:05 WBC 7.7 RBC 2.97 L Hgb 10.6 L Hct 30.6 L MCV 103.0 H MCH 35.6 H MCHC 34.6 RDW 15.1 Plt Count 219 MPV 8.6 Absolute Neuts (auto) 6.5 Neutrophils % 84.2 H Lymphocytes % 5.1 L D Monocytes % 10.2 Eosinophils % 0.1 D Basophils % 0.4 Nucleated RBC % 0 Sodium 122 L* Potassium 7.8 H* D Chloride 90 L Carbon Dioxide 14 L D Anion Gap 18 H BUN 73 H D Creatinine 12.6 H* Creat Clearance w eGFR 4.23 Random Glucose 104 Calcium 7.1 L Magnesium 1.6 L D Total Bilirubin 0.9 AST 135 H D ALT 105 H Alkaline Phosphatase 952 H D Creatine Kinase 139 Troponin I < 0.02 Total Protein 6.6 Albumin 2.4 L CBC, [facility] 06/02/18 11:05 06/02/18 11:05 ASSESSMENT/PLAN: 53yo M with significant history of ESRD (T//Thu), DM, HTN, gastric ulcer who presents to the ER today due to generalized weakness , mechanical fall, miss HD yesterday , was found to have Hyperkalemia 7.9 and hyponatremia of 122 and was admitted to [facility] for urgernt HD and further monitoring # Hyponatremia * Na 122 w/o mental status changes * 2/2 to missed dialysis sessions * Nephrology on board * Emergent dialysis is being arranged now * BMP after dialysis and in AM # Hyper kalemia * 7.8 with no EKG changes noted above * s/p CaGluconate x1, Albuterol dose x1, and D50/Insulin 8 U cocktail * urgent HD * [facility] nephrology was consulted # ESRD * Schedule //Thu * Pt continually refuses to received AVF creation * he has port in right side of his chest * avoid NSAIDS and ARBS/ACEI # S/P mechanical fall * denies LOC or head trauma * fall precautions * Pt eval * refused PAUL #HTN * Continue home dose medications # Normocytic anemia likely 2/2 CKD * H/H stable at base line , no active bleeding * Monitor CBC FEN: * Fluids: Avoid * Electrolyte abnormalities as above, repeat after HD * Nutrition: Renal/sodium/diabetic PPX: * DVT SCDS both legs * GI: protonix 40 mg BID daily home meds # Dispo: * admit to tele Visit type - Emergency Visit Emergency Visit: Yes Care time: The patient presented to the Emergency Department on the above date and was hospitalized for further evaluation of their emergent condition. - New Patient This patient is new to me today: Yes Date on this admission: 06/02/18 - Critical Care Critical Care patient: No Hospitalist Screening - Colonoscopy Questionnaire Colonoscopy Questionnaire: Colonoscopy Questionnaire - Patient: 50 - 75 years old and never had a screening colonoscopy: No History of colon or rectal polyps, or CA: No History of IBD, Crohn's disease or UC: No History of abdominal radiation therapy as a child: No - Relative: 1 with colon or rectal CA, or polyps at age 60 or younger: No Colon or rectal CA diagnosed at age 45 or younger: No Multiple relatives with colon or rectal CA: No - Outcome: Screening Result: Negative Screen
--- NOTE | 2018-06-02 13:31 | CONSULT ---
Consult Consult Specialty:: Nephrology Reason for Consultation:: ESRD - History of Present Illness Chief Complaint: weakness History of Present Illness: Pt is a 53 year old male with pmhx of non compliance, ESRD, GIB, DM and HTN who presents to the ER with weakness. He missed his HD treatment yesterday. He often misses treatments and often cuts treatments down to 2 hours. He denies chest pain or shortness of breath. He is awake and alert. He denies fevers or chills. He does have a PD catheter and is getting training. - History Source History Provided By: Patient, Medical Record - Past Medical History Cardio/Vascular: Yes: HTN, Hyperlipdemia Gastrointestinal: Yes: GI Bleed Renal/: Yes: Renal Failure, Renal Inusuff, Hemodialysis Endocrine: Yes: Diabetes Mellitus - Past Surgical History Additional Surgical History: pd catheter - Alcohol/Substance Use Hx Alcohol Use: No History of Substance Use: reports: None - Smoking History Smoking history: Never smoked Have you smoked in the past 12 months: No Aproximately how many cigarettes per day: 0 - Social History ADL: Independent Home Medications - Allergies Allergies/Adverse Reactions: Allergies Allergy/AdvReac Type Severity Reaction Status Date / Time Penicillins Allergy Intermediate Verified 06/02/18 09:43 - Home Medications Home Medications: Ambulatory Orders Carvedilol [Coreg] 25 mg PO BID #60 tablet 10/01/16 Furosemide [Lasix -] 40 mg PO DAILY 07/30/17 Sevelamer Carbonate [Renvela -] 1,600 mg PO TID 01/27/18 traZODone HCL [Trazodone HCl] 50 mg PO HS 04/07/18 Pantoprazole Sodium 40 mg PO BID 05/04/18 Acetaminophen W/ Codeine #3 [Tylenol # 3 -] 1 tab PO Q6H PRN #12 tablet MDD 4 Family Disease History - Family Disease History Family Disease History: Diabetes: Brother (CVA), Heart Disease: Father Review of Systems - Review of Systems Constitutional: reports: Malaise. denies: Chills, Fever Eyes: reports: No Symptoms HENT: reports: No Symptoms Neck: reports: No Symptoms Cardiovascular: reports: No Symptoms Respiratory: reports: SOB on Exertion Gastrointestinal: reports: No Symptoms Genitourinary: reports: No Symptoms Musculoskeletal: reports: Muscle Weakness Endocrine: reports: No Symptoms Hematology/Lymphatic: reports: No Symptoms Psychiatric: reports: No Symptoms Physical Exam Vital Signs: Vital Signs Temperature 99.9 F H 06/02/18 09:40 Pulse Rate 82 06/02/18 09:40 Respiratory Rate 16 06/02/18 09:40 Blood Pressure 159/82 06/02/18 09:40 O2 Sat by Pulse Oximetry (%) 100 06/02/18 09:40 Constitutional: Yes: Calm Eyes: Yes: Conjunctiva Clear HENT: Yes: Atraumatic Cardiovascular: Yes: S1, S2 Respiratory: Yes: Rhonchi Gastrointestinal: Yes: Soft, Other (pd catheter) Renal/: Yes: WNL Musculoskeletal: Yes: WNL Edema: Yes Edema: LLE: 1+, RLE: 1+ Neurological: Yes: Oriented Psychiatric: Yes: Oriented Labs: CBC, BMP 06/02/18 11:05 06/02/18 11:05 Laboratory Tests 06/02/18 06/02/18 11:05 11:05 Hgb 10.6 L Hct 30.6 L Sodium 122 L* Potassium 7.8 H* D Chloride 90 L Carbon Dioxide 14 L D Anion Gap 18 H BUN 73 H D Creatinine 12.6 H* Problem List - Problems (1) Hyperkalemia Code(s): E87.5 - HYPERKALEMIA (2) Hyponatremia Code(s): E87.1 - HYPO-OSMOLALITY AND HYPONATREMIA (3) Anemia Code(s): D64.9 - ANEMIA, UNSPECIFIED (4) Chronic anemia Code(s): D64.9 - ANEMIA, UNSPECIFIED (5) Diabetes Code(s): E11.9 - TYPE 2 DIABETES MELLITUS WITHOUT COMPLICATIONS Qualifiers: (6) ESRD (end stage renal disease) Code(s): N18.6 - END STAGE RENAL DISEASE Assessment/Plan Impression 1. ESRD 2. DM 3. hyponatremia 4. HTN 5. obesity 6. anemia 7. iron deficiency 8. CHF 9. anemia 10. hyperkalemia 11. liver mass 12. hx GI bleed 13. diabetic nephropathy 14. non compliance with HD treatment regimen 15. bleeding from PD catheter site Plan - will arrange for urgent HD today - will need to be admitted - discussed compliance again with pt - GI eval for liver mass, he does have ascites, unclear if it is from volume overload - monitor hg - epogen for anemia - discussed with ER
[2018-06-02] MEDS ORDERED: DEXTROSE 50%-WATER 25 GM/50 ML DISP.SYRIN ONE (14:04)
[2018-06-02] MEDS ORDERED: ALBUTEROL SO4 0.083% IH SOL 2.5 MG/3 ML VIAL.NEB. NEB ONE (14:04)
[2018-06-02] MEDS ORDERED: INSULIN REGULAR HUMAN 100 UNITS/ML *VIAL ONE (14:05)
[2018-06-02 16:43] LABS: BASO % 0.3 % (0-2.0); EOS % 0.2 % (0-4.5); HEMATOCRIT 29.3 % (35.4-49); HEMOGLOBIN 10.1 GM/dL (11.7-16.9); LYMPH % 5.4 % (8-40); MCH 35.7 pg (25.7-33.7); MCHC 34.6 g/dl (32.0-35.9); MEAN CELL VOLUME 103.1 fl (80-96); MONO % 10.5 % (3.8-10.2); NEUT % 83.6 % (42.8-82.8); PLATELET COUNT 248 K/MM3 (134-434); RBC 2.84 M/mm3 (4.00-5.60)
[2018-06-02 17:02] LABS: ALBUMIN 2.5 g/dl (3.4-5.0); ANION GAP 18 MMOL/L (8-16); BLOOD UREA NITROGEN 77 mg/dL (7-18); CALCIUM 7.2 mg/dL (8.5-10.1); CHLORIDE 89 mmol/L (98-107); CO2 15 mmol/L (21-32); MAGNESIUM 1.6 mg/dL (1.8-2.4); POTASSIUM 7.4 mmol/L (3.5-5.1); SODIUM 122 mmol/L (136-145)
--- NOTE | 2018-06-02 17:07 | PN ---
Teaching Attending Note Name of Resident: Qamar Heard ATTENDING PHYSICIAN STATEMENT I saw and evaluated the patient. I reviewed the resident's note and discussed the case with the resident. I agree with the resident's findings and plan as documented. SUBJECTIVE:53yo M with PMH ESRD on HD (TTS) with plan for PD, DM, HTN and GI bleed presented to the ER with progressively worsening weakness for 3-4 days. pt missed his HD yesterday. has hx of non compliance and either does not show up to HD or cuts his sessoins shorts. states he fell last night because of generalized weakness landing on his R side with some pain there. denies CP, SOB , fever, chills, N/V/C/D OBJECTIVE: Last Vital Signs Temp Pulse Resp BP Pulse Ox 97.8 F 68 16 134/76 99 06/02/18 16:18 06/02/18 16:18 06/02/18 16:18 06/02/18 16:18 06/02/18 16:18 General NAD, pale CV S1 S2 RRR no murmur/rub/gallop +R sided HD port Lungs CTA anteriorly abdomen soft RUQ tenderness R lower rib tenderness +RLQ PD catheter. ASSESSMENT AND PLAN: 53yo M with PMH ESRD on HD (TTS) with plan for PD, DM, HTN and GI bleed presented to the ER with progressively worsening weakness for 3-4 days and found to have severe hyperkalemia and significant metabolic derangements 1. Severe hyperkalemia- Admit to tele for continuous cardiac monitoring to monitor for arrythmia. was given insulin/D50/albuterol in the ER. planned for emergent HD. will repeat labs after HD to evaluate if improved 2. Mechanical fall- due to generalized weakness due to metabolic derangements. CXR not showing any rib fracture. will consider dedicated rib study if pain worsens but presently looks pain free. PT eval. pain control 3. ESRD on HD- plan for emergent HD. will monitor labs after HD to re-assess. plans to initate PD. unsure if pt is a good candidate for PD due to hx of non compliance, less likely to be able to commit to PD. nephro consulted 4. Hypervolemic hyponatremia- due to missed HD. plan for volume removal with HD. will monitor closely 5. Hx of DM- not on any medications at home. last A1c in the system 5.6 in 2017. 6. HTN- controlled. cont home medications 7. DVT ppx- hep sq
[2018-06-02 17:08] LABS: MAGNESIUM 1.5 mg/dL (1.8-2.4); PHOSPHOROUS 7.8 mg/dL (2.5-4.9)
[2018-06-02 17:19] LABS: ALK PHOS 949 U/L (45-117); BILIRUBIN,TOTAL 0.9 mg/dL (0.2-1.0); CREATININE 13.1 mg/dL (0.7-1.3); PHOSPHOROUS 7.5 mg/dL (2.5-4.9); SGOT/AST 124 U/L (15-37); SGPT/ALT 100 U/L (12-78); TOT PROT 6.6 g/dl (6.4-8.2)
[2018-06-02 17:26] LABS: GLUCOSE,RANDOM 83 mg/dL (74-106)
--- NOTE | 2018-06-02 17:33 | EKG ---
Test Reason : Blood Pressure : / mmHG Vent. Rate : 081 BPM Atrial Rate : 081 BPM P-R Int : 212 ms QRS Dur : 114 ms QT Int : 396 ms P-R-T Axes : 025 -78 079 degrees QTc Int : 460 ms SINUS RHYTHM WITH 1ST DEGREE A-V BLOCK LEFT AXIS DEVIATION ABNORMAL ECG WHEN COMPARED WITH ECG OF 02-JUN-2018 11:08, QRS DURATION HAS DECREASED Confirmed by TIFFANY SHAH, LIZETH ([id number]) on 06/02/2018 5:33:11 PM Referred By: ROLA OLIVAS Confirmed By:LIZETH ALLEN MD
[2018-06-02] MEDS ORDERED: SODIUM CHLORIDE 250 ML IV PRN (18:30)
[2018-06-02] MEDS ORDERED: EPOETIN ALFA 3,000 UNIT/1 ML ML IVPUSH ONE (19:00)
--- NOTE | 2018-06-02 20:11 | EKG ---
Test Reason : Blood Pressure : / mmHG Vent. Rate : 081 BPM Atrial Rate : 081 BPM P-R Int : 232 ms QRS Dur : 136 ms QT Int : 418 ms P-R-T Axes : 034 269 073 degrees QTc Int : 485 ms SINUS RHYTHM WITH 1ST DEGREE A-V BLOCK RIGHT SUPERIOR AXIS DEVIATION NON-SPECIFIC INTRA-VENTRICULAR CONDUCTION BLOCK RIGHT VENTRICULAR HYPERTROPHY ABNORMAL ECG WHEN COMPARED WITH ECG OF 18-MAY-2018 11:14, [place] INTERVAL HAS INCREASED QRS DURATION HAS INCREASED Confirmed by LIZETH ALLEN MD ([id number]) on 06/02/2018 8:11:49 PM Referred By: Confirmed By:LIZETH ALLEN MD
[2018-06-02 21:21] LABS: BASO % 0.2 % (0-2.0); EOS % 0.2 % (0-4.5); HEMATOCRIT 29.3 % (35.4-49); HEMOGLOBIN 10.1 GM/dL (11.7-16.9); LYMPH % 6.4 % (8-40); MCH 35.3 pg (25.7-33.7); MCHC 34.6 g/dl (32.0-35.9); MEAN CELL VOLUME 102.2 fl (80-96); MEAN PLT VOLUME 8.8 fl (7.5-11.1); MONO % 8.3 % (3.8-10.2); NEUT % 84.9 % (42.8-82.8); PLATELET COUNT 254 K/MM3 (134-434); RBC 2.86 M/mm3 (4.00-5.60); RDW 15.2 % (11.9-15.9); WHITE BLOOD COUNT 5.9 K/mm3 (4.0-10.0)
[2018-06-02] MEDS: SEVELAMER CARBONATE 800 MG TAB (FP) PO SCH (21:21)
[2018-06-02] MEDS: traZODone HCL 50 MG TABLET (FP) PO SCH (21:21)
[2018-06-02] MEDS: CARVEDILOL 25 MG TABLET (FP) PO SCH (21:21)
[2018-06-02] MEDS: PANTOPRAZOLE 40 MG TABLET (FP) PO SCH (21:21)
[2018-06-02] MEDS: HEPARIN NA (PORCINE) 5,000 UNITS/ML 1ML VIAL SQ SCH (21:22)
[2018-06-02 22:02] LABS: ALBUMIN 2.4 g/dl (3.4-5.0); ANION GAP 12 MMOL/L (8-16); BILIRUBIN,TOTAL 1.4 mg/dL (0.2-1.0); BLOOD UREA NITROGEN 21 mg/dL (7-18); CALCIUM 7.7 mg/dL (8.5-10.1); CHLORIDE 96 mmol/L (98-107); CO2 29 mmol/L (21-32); CREATININE 4.1 mg/dL (0.7-1.3); GLUCOSE,RANDOM 134 mg/dL (74-106); POTASSIUM 3.7 mmol/L (3.5-5.1); SGOT/AST 125 U/L (15-37); SGPT/ALT 95 U/L (12-78); SODIUM 137 mmol/L (136-145); TOT PROT 6.6 g/dl (6.4-8.2)
[2018-06-02 22:14] LABS: ALK PHOS 953 U/L (45-117)
[2018-06-03] MEDS: HEPARIN NA (PORCINE) 5,000 UNITS/ML 1ML VIAL SQ SCH ×3 (06:24→23:00)
[2018-06-03] MEDS ORDERED: DEXTROSE 5%-WATER - 1,000 ML IV SCH ×3 (07:30→15:53)
[2018-06-03 07:31] LABS: INR 1.11 (0.83-1.09); PROTHROMBIN TIME (PATIENT) 12.5 SEC (9.7-13.0)
[2018-06-03 07:33] LABS: ACTIVATED PTT 30.8 SECONDS (25.2-36.5)
[2018-06-03] MEDS: SEVELAMER CARBONATE 800 MG TAB (FP) PO SCH ×3 (08:08→23:00)
[2018-06-03] MEDS: CARVEDILOL 25 MG TABLET (FP) PO SCH ×2 (09:28→23:00)
[2018-06-03] MEDS: FUROSEMIDE 40 MG TABLET (FP) PO SCH (09:28)
[2018-06-03] MEDS: PANTOPRAZOLE 40 MG TABLET (FP) PO SCH ×2 (09:28→23:00)
[2018-06-03 10:44] LABS: BASO % 0.2 % (0-2.0); EOS % 0.1 % (0-4.5); HEMATOCRIT 30.5 % (35.4-49); HEMOGLOBIN 10.5 GM/dL (11.7-16.9); LYMPH % 6.7 % (8-40); MCHC 34.4 g/dl (32.0-35.9); MEAN CELL VOLUME 104.7 fl (80-96); MEAN PLT VOLUME 9.4 fl (7.5-11.1); MONO % 13.4 % (3.8-10.2); NEUT % 79.6 % (42.8-82.8); PLATELET COUNT 253 K/MM3 (134-434); RBC 2.91 M/mm3 (4.00-5.60); RDW 15.1 % (11.9-15.9); WHITE BLOOD COUNT 6.9 K/mm3 (4.0-10.0)
[2018-06-03 10:54] LABS: ALBUMIN 2.4 g/dl (3.4-5.0); ANION GAP 14 MMOL/L (8-16); BILIRUBIN,TOTAL 1.3 mg/dL (0.2-1.0); BLOOD UREA NITROGEN 37 mg/dL (7-18); CALCIUM 7.9 mg/dL (8.5-10.1); CHLORIDE 96 mmol/L (98-107); CO2 25 mmol/L (21-32); CREATININE 7.4 mg/dL (0.7-1.3); GLUCOSE,RANDOM 89 mg/dL (74-106); MAGNESIUM 1.6 mg/dL (1.8-2.4); PHOSPHOROUS 5.2 mg/dL (2.5-4.9); POTASSIUM 5.1 mmol/L (3.5-5.1); SGOT/AST 112 U/L (15-37); SGPT/ALT 87 U/L (12-78); SODIUM 135 mmol/L (136-145); TOT PROT 6.7 g/dl (6.4-8.2)
[2018-06-03 10:55] LABS: ALK PHOS 957 U/L (45-117)
--- NOTE | 2018-06-03 13:39 | PN ---
Teaching Attending Note Name of Resident: Randall Dickson ATTENDING PHYSICIAN STATEMENT I saw and evaluated the patient. I reviewed the resident's note and discussed the case with the resident. I agree with the resident's findings and plan as documented. SUBJECTIVE:asymptomatic. states he feels better today. denies CP, SOB, fever, chills, N/V/c/D or chills OBJECTIVE: Last Vital Signs Temp Pulse Resp BP Pulse Ox 98 F 90 18 168/98 99 06/03/18 09:14 06/03/18 09:14 06/03/18 09:14 06/03/18 09:14 06/03/18 09:00 General NAD, CV S1 S2 RRR no murmur/rub/gallop +R sided HD port Lungs CTA anteriorly abdomen soft NT/ND +RLQ PD catheter. ASSESSMENT AND PLAN: 53yo M with PMH ESRD on HD (TTS) with plan for PD, DM, HTN and GI bleed presented to the ER with progressively worsening weakness for 3-4 days and found to have severe hyperkalemia and significant metabolic derangements 1. Severe hyperkalemia-resolved after HD. no EKG changes 2. Mechanical fall- due to generalized weakness due to metabolic derangements. pain is controlled. PT eval. 3. ESRD on HD- tolerated emergent HD yesterday with 2kg removal. awaiting to hear from nephro if plan to dialyze again today. pt is currently being trained for PD as he feels it is something he would be more compliant with. 4. Hypervolemic hyponatremia- due to missed HD. 2Kg removal with HD. now resolved. no symptoms developed as a result of being over corrected quickly 5. Hx of DM- not on any medications at home. last A1c in the system 5.6 in 2017. 6. HTN- controlled. cont home medications 7. DVT ppx- hep sq 8. spoke with present at bedside. anticipate discharge today pending PT assessment and HD
--- NOTE | 2018-06-03 14:40 | CON.GI ---
Consult Consult Specialty:: GI Reason for Consultation:: Liver mass - History of Present Illness History of Present Illness: The pt is known to GI service from admissions for upper GI bleeding. Denies melena,hematochezia, hematemesis, dyspahgia, opdynophagia, jaundice, chronic diarrhea. He was admitted this time for the symptoms related to missed HD. In July of 2017 he was noted to have an avascular liver lesion. - History Source History Provided By: Patient, Medical Record - Past Medical History Cardio/Vascular: Yes: HTN, Hyperlipdemia Gastrointestinal: Yes: GI Bleed Renal/: Yes: Renal Failure, Renal Inusuff, Hemodialysis Endocrine: Yes: Diabetes Mellitus - Past Surgical History Additional Surgical History: pd catheter - Alcohol/Substance Use Hx Alcohol Use: No History of Substance Use: reports: None - Smoking History Smoking history: Never smoked Have you smoked in the past 12 months: No Aproximately how many cigarettes per day: 0 - Social History ADL: Independent Home Medications - Allergies Allergies/Adverse Reactions: Allergies Allergy/AdvReac Type Severity Reaction Status Date / Time Penicillins Allergy Intermediate Verified 06/02/18 09:43 - Home Medications Home Medications: Ambulatory Orders Carvedilol [Coreg] 25 mg PO BID #60 tablet 10/01/16 Furosemide [Lasix -] 40 mg PO DAILY 07/30/17 Sevelamer Carbonate [Renvela -] 1,600 mg PO TID 01/27/18 traZODone HCL [Trazodone HCl] 50 mg PO HS 04/07/18 Pantoprazole Sodium 40 mg PO BID 05/04/18 Family Disease History - Family Disease History Family Disease History: Diabetes: Brother (CVA), Heart Disease: Father Review of Systems Findings/Remarks: as per HPI, ED, H&P Physical Exam-GI Vital Signs: Vital Signs Temperature 98 F 06/03/18 09:14 Pulse Rate 90 06/03/18 09:14 Respiratory Rate 18 06/03/18 09:14 Blood Pressure 168/98 06/03/18 09:14 O2 Sat by Pulse Oximetry (%) 99 06/03/18 09:00 Constitutional: Yes: No Distress, Calm, Pallor Eyes: No: Sclera Icterus Gastrointestinal Inspection: Yes: Distention ...Auscultate: Yes: Normoactive Bowel Sounds ...Palpate: Yes: Soft. No: Firm/Rigid, Tenderness, Tenderness, Epigastium, Tenderness, Rebound Neurological: Yes: Alert, Oriented. No: Asterixis, Confusion, Lethargy, Tremors Labs: CBC, BMP 06/03/18 06:24 06/03/18 06:24 INR, PTT INR 1.11 (0.83-1.09) H 06/03/18 06:24 Laboratory Last Values WBC 6.9 K/mm3 (4.0-10.0) 06/03/18 06:24 RBC 2.91 M/mm3 (4.00-5.60) L 06/03/18 06:24 Hgb 10.5 GM/dL (11.7-16.9) L 06/03/18 06:24 Hct 30.5 % (35.4-49) L 06/03/18 06:24 MCV 104.7 fl (80-96) H 06/03/18 06:24 MCH 36.0 pg (25.7-33.7) H 06/03/18 06:24 MCHC 34.4 g/dl (32.0-35.9) 06/03/18 06:24 RDW 15.1 % (11.9-15.9) 06/03/18 06:24 Plt Count 253 K/MM3 (134-434) 06/03/18 06:24 MPV 9.4 fl (7.5-11.1) 06/03/18 06:24 Absolute Neuts (auto) 5.5 K/mm3 (1.5-8.0) 06/03/18 06:24 Neutrophils % 79.6 % (42.8-82.8) 06/03/18 06:24 Lymphocytes % 6.7 % (8-40) L 06/03/18 06:24 Monocytes % 13.4 % (3.8-10.2) H 06/03/18 06:24 Eosinophils % 0.1 % (0-4.5) 06/03/18 06:24 Basophils % 0.2 % (0-2.0) 06/03/18 06:24 Nucleated RBC % 0 % (0-0) 06/03/18 06:24 PT with INR 12.50 SEC (9.7-13.0) 06/03/18 06:24 INR 1.11 (0.83-1.09) H 06/03/18 06:24 PTT (Actin FS) 30.8 SECONDS (25.2-36.5) 06/03/18 06:24 Sodium 135 mmol/L (136-145) L 06/03/18 06:24 Potassium 5.1 mmol/L (3.5-5.1) D 06/03/18 06:24 Chloride 96 mmol/L (98-107) L 06/03/18 06:24 Carbon Dioxide 25 mmol/L (21-32) 06/03/18 06:24 Anion Gap 14 MMOL/L (8-16) 06/03/18 06:24 BUN 37 mg/dL (7-18) H 06/03/18 06:24 Creatinine 7.4 mg/dL (0.7-1.3) H 06/03/18 06:24 Creat Clearance w eGFR 7.82 (>60) 06/03/18 06:24 POC Glucometer 194 UNITS (80-120) 06/03/18 12:31 Random Glucose 89 mg/dL (74-106) D 06/03/18 06:24 Hemoglobin A1c % 4.8 % (4.8-6.0) D 06/03/18 06:24 Calcium 7.9 mg/dL (8.5-10.1) L 06/03/18 06:24 Phosphorus 5.2 mg/dL (2.5-4.9) H D 06/03/18 06:24 Magnesium 1.6 mg/dL (1.8-2.4) L 06/03/18 06:24 Total Bilirubin 1.3 mg/dL (0.2-1.0) H 06/03/18 06:24 AST 112 U/L (15-37) H 06/03/18 06:24 ALT 87 U/L (12-78) H 06/03/18 06:24 Alkaline Phosphatase 957 U/L (45-117) H 06/03/18 06:24 Creatine Kinase 139 IU/L (39-308) 06/02/18 11:05 Troponin I < 0.02 ng/ml (0.00-0.05) 06/02/18 11:05 B-Natriuretic Peptide 72494.94 pg/ml (5-125) H 06/03/18 06:24 Total Protein 6.7 g/dl (6.4-8.2) 06/03/18 06:24 Albumin 2.4 g/dl (3.4-5.0) L 06/03/18 06:24 Hep C Ab Diagnostic Cancelled 06/02/18 18:00 Hepatitis C RNA Cancelled 06/02/18 18:00 HCV RNA PCR log copier operator/ml Cancelled 06/02/18 18:00 HCV RNA (PCR) IUs/ml Cancelled 06/02/18 18:00 HCV RNA PCR w/Genot Rflx Cancelled 06/02/18 18:00 Liver Fibrosis Interp Cancelled 06/02/18 18:00 Imaging - Results Cat Scan: Pending Problem List - Problems (1) Liver mass Code(s): R16.0 - HEPATOMEGALY, NOT ELSEWHERE CLASSIFIED (2) Abnormal liver CT Code(s): R93.2 - ABNORMAL FINDINGS ON DX IMAGING OF LIVER AND BILIARY TRACT Assessment/Plan A 53M with multiple active, chronic medical issues with abnormal liver chemistry and a liver mass noted first in 2016. Recommned: CT A/P with and without IV/PO contrast to evaluate the liver mass. Contrast administration in ESRD/HD was discussed with nephrology svc and will be coordinated with HD. Discussed with the pt who is in agreement. AFP, CEA, CA19-9, viral hepatitis serologies. Will follow
--- NOTE | 2018-06-03 16:36 | PN ---
Progress Note, Physician History of Present Illness: Pt seen and examined at bedside. He is awake and alert. He says that he feels much better. He denies shortness of breath. - Current Medication List Current Medications: Active Medications Carvedilol (Coreg -) 25 mg PO BID [facility] Last Admin: 06/03/18 09:28 Dose: 25 mg Furosemide (Lasix -) 40 mg PO DAILY [facility] Last Admin: 06/03/18 09:28 Dose: 40 mg Heparin Sodium (Porcine) (Heparin -) 5,000 unit SQ TID [facility] Last Admin: 06/03/18 14:19 Dose: Not Given Sodium Chloride (Normal Saline -) 250 mls @ 3,000 mls/hr IV PRN PRN PRN Reason: Hypotension during Dialysis Stop: 06/03/18 18:29 Dextrose (D5w -) 1,000 mls @ 50 mls/hr IV ASDIR [facility] Pantoprazole Sodium (Protonix -) 40 mg PO BID [facility] Last Admin: 06/03/18 09:28 Dose: 40 mg Sevelamer Carbonate (Renvela -) 1,600 mg PO TID [facility] Last Admin: 06/03/18 14:41 Dose: 1,600 mg Trazodone HCl (Desyrel -) 50 mg PO HS [facility] Last Admin: 06/02/18 21:21 Dose: 50 mg - Objective Vital Signs: Vital Signs Temperature 98.3 F 06/03/18 14:00 Pulse Rate 86 06/03/18 14:00 Respiratory Rate 18 06/03/18 09:14 Blood Pressure 130/79 06/03/18 14:00 O2 Sat by Pulse Oximetry (%) 99 06/03/18 09:00 Constitutional: Yes: Calm Eyes: Yes: Conjunctiva Clear HENT: Yes: Atraumatic Neck: Yes: Supple Cardiovascular: Yes: S1, S2 Respiratory: Yes: CTA Bilaterally Gastrointestinal: Yes: Soft, Other (pd catheter) Genitourinary: Yes: WNL Musculoskeletal: Yes: WNL Edema: No Neurological: Yes: Oriented Psychiatric: Yes: Oriented Labs: CBC, BMP 06/03/18 06:24 06/03/18 06:24 INR, PTT INR 1.11 (0.83-1.09) H 06/03/18 06:24 Problem List - Problems (1) Hyperkalemia Code(s): E87.5 - HYPERKALEMIA (2) Hyponatremia Code(s): E87.1 - HYPO-OSMOLALITY AND HYPONATREMIA (3) Anemia Code(s): D64.9 - ANEMIA, UNSPECIFIED (4) Chronic anemia Code(s): D64.9 - ANEMIA, UNSPECIFIED (5) Diabetes Code(s): E11.9 - TYPE 2 DIABETES MELLITUS WITHOUT COMPLICATIONS Qualifiers: (6) ESRD (end stage renal disease) Code(s): N18.6 - END STAGE RENAL DISEASE Assessment/Plan Current Medications Generic Name Dose Route Start Last Admin Trade Name Freq PRN Reason Stop Dose Admin Carvedilol 25 mg 06/02/18 22:00 06/03/18 09:28 Coreg - PO 25 mg BID KRISTEN Administration Furosemide 40 mg 06/03/18 10:00 06/03/18 09:28 Lasix - PO 40 mg DAILY KRISTEN Administration Heparin Sodium (Porcine) 5,000 unit 06/02/18 22:00 06/03/18 14:19 Heparin - SQ Not Given TID KRISTEN Sodium Chloride 250 mls @ 3,000 mls/hr 06/02/18 18:30 Normal Saline - IV 06/03/18 18:29 PRN PRN Hypotension during Dialysis Dextrose 1,000 mls @ 50 mls/hr 06/03/18 15:53 D5w - IV ASDIR KRISTEN Pantoprazole Sodium 40 mg 06/02/18 22:00 06/03/18 09:28 Protonix - PO 40 mg BID KRISTEN Administration Sevelamer Carbonate 1,600 mg 06/02/18 22:00 06/03/18 14:41 Renvela - PO 1,600 mg TID KRISTEN Administration Trazodone HCl 50 mg 06/02/18 22:00 06/02/18 21:21 Desyrel - PO 50 mg HS KRISTEN Administration Impression 1. ESRD 2. DM 3. hyponatremia 4. HTN 5. obesity 6. anemia 7. iron deficiency 8. CHF 9. anemia 10. hyperkalemia 11. liver mass 12. hx GI bleed 13. diabetic nephropathy 14. non compliance with HD treatment regimen 15. bleeding from PD catheter site Plan - cont d5w to slow the rate of sodium rising - hd again tomorrow in am - unable to dialyze today secondary to staffing - pt says that he wants to do the ct scan as outpt - spoke to GI, pt need ct scan with contrast. Explained to pt that he should get HD right after the scan in order to help preserve his residual renal function - discussed compliance at length, he has repeat admissions for overload, hyperkalemia and hyponatremia, all secondary to non compliance - epogen for anemia Dr Quezada
--- NOTE | 2018-06-03 17:23 | PN ---
Physical Exam: SUBJECTIVE: Patient seen and examined at bedside. no acute events overnight. HD yesterday. denies weakness, fevers, cp ,sob ,n/v/d OBJECTIVE: Vital Signs Period Temp Pulse Resp BP Sys/Hayden Pulse Ox Last 24 Hr 97.8 F-99.6 F 47-105 16-18 130-168/72-98 99-99 GENERAL: AAOx3 in NAD HEAD: NC/AT , EYES: LEFT eye LIU, EOMI , sclera anicteric, conjunctiva clear. 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 No wheezes, and no crackles. No accessory muscle use. HEART: RRR, normal S1 and S2 without murmur, rub or gallop. ABDOMEN: Soft, right upper and lower quadrant tenderness, distended, normative bowel sounds, no guarding, UPPER EXTREMITIES: 2+ pulses, warm, well-perfused. No cyanosis. No clubbing. No peripheral edema. LOWER EXTREMITIES: 2+ pulses, warm, well-perfused. No calf tenderness. No peripheral edema. left leg 4/5 strength , sensation intact. right leg 5/5 proximal in distal , sensation intact. NEUROLOGICAL: Cranial nerves II-XII intact. Normal speech. PSYCHIATRIC: Cooperative. Good eye contact. Appropriate mood and affect. SKIN: Warm, dry, normal turgor, Laboratory Results - last 24 hr 06/02/06/02/18 06/02/18 15:43 15:43 18:00 WBC RBC Hgb Hct MCV MCH MCHC RDW Plt Count MPV Absolute Neuts (auto) Neutrophils % Lymphocytes % Monocytes % Eosinophils % Basophils % Nucleated RBC % PT with INR INR PTT (Actin FS) Sodium 122 L* Potassium 7.4 H* Chloride 89 L Carbon Dioxide 15 L Anion Gap 18 H BUN 77 H Creatinine 13.1 H* Creat Clearance w eGFR 4.05 POC Glucometer Random Glucose 83 D Hemoglobin A1c % Calcium 7.2 L Phosphorus 7.8 H 7.5 H Magnesium 1.5 L 1.6 L Total Bilirubin 0.9 AST 124 H ALT 100 H Alkaline Phosphatase 949 H B-Natriuretic Peptide Total Protein 6.6 Albumin 2.5 L Hep C Ab Diagnostic Cancelled Hepatitis C RNA Cancelled HCV RNA PCR log copy camera operator/ml Cancelled HCV RNA (PCR) IUs/ml Cancelled HCV RNA PCR w/Genot Rflx Cancelled Liver Fibrosis Interp Cancelled 06/02/18 06/02/18 06/02/18 21:00 21:00 21:20 WBC 5.9 RBC 2.86 L Hgb 10.1 L Hct 29.3 L MCV 102.2 H MCH 35.3 H MCHC 34.6 RDW 15.2 Plt Count 254 MPV 8.8 Absolute Neuts (auto) 5.0 Neutrophils % 84.9 H Lymphocytes % 6.4 L Monocytes % 8.3 Eosinophils % 0.2 Basophils % 0.2 Nucleated RBC % 0 PT with INR INR PTT (Actin FS) Sodium 137 D Potassium 3.7 D Chloride 96 L Carbon Dioxide 29 D Anion Gap 12 BUN 21 H D Creatinine 4.1 H Creat Clearance w eGFR 15.46 POC Glucometer 111 Random Glucose 134 H D Hemoglobin A1c % Calcium 7.7 L Phosphorus Magnesium Total Bilirubin 1.4 H AST 125 H ALT 95 H Alkaline Phosphatase 953 H B-Natriuretic Peptide Total Protein 6.6 Albumin 2.4 L Hep C Ab Diagnostic Hepatitis C RNA HCV RNA PCR log copy camera operator/ml HCV RNA (PCR) IUs/ml HCV RNA PCR w/Genot Rflx Liver Fibrosis Interp 06/03/18 06/03/18 06/03/18 06:03 06:24 06:24 WBC RBC Hgb Hct MCV MCH MCHC RDW Plt Count MPV Absolute Neuts (auto) Neutrophils % Lymphocytes % Monocytes % Eosinophils % Basophils % Nucleated RBC % PT with INR 12.50 INR 1.11 H PTT (Actin FS) 30.8 Sodium Potassium Chloride Carbon Dioxide Anion Gap BUN Creatinine Creat Clearance w eGFR POC Glucometer 92 Random Glucose Hemoglobin A1c % Calcium Phosphorus Magnesium Total Bilirubin AST ALT Alkaline Phosphatase B-Natriuretic Peptide 36455.94 H Total Protein Albumin Hep C Ab Diagnostic Hepatitis C RNA HCV RNA PCR log copy camera operator/ml HCV RNA (PCR) IUs/ml HCV RNA PCR w/Genot Rflx Liver Fibrosis Interp 06/03/18 06/03/18 06/03/18 06:24 06:24 06:24 WBC 6.9 RBC 2.91 L Hgb 10.5 L Hct 30.5 L MCV 104.7 H MCH 36.0 H MCHC 34.4 RDW 15.1 Plt Count 253 MPV 9.4 Absolute Neuts (auto) 5.5 Neutrophils % 79.6 Lymphocytes % 6.7 L Monocytes % 13.4 H Eosinophils % 0.1 Basophils % 0.2 Nucleated RBC % 0 PT with INR INR PTT (Actin FS) Sodium 135 L Potassium 5.1 D Chloride 96 L Carbon Dioxide 25 Anion Gap 14 BUN 37 H Creatinine 7.4 H Creat Clearance w eGFR 7.82 POC Glucometer Random Glucose 89 D Hemoglobin A1c % 4.8 D Calcium 7.9 L Phosphorus 5.2 H D Magnesium 1.6 L Total Bilirubin 1.3 H AST 112 H ALT 87 H Alkaline Phosphatase 957 H B-Natriuretic Peptide Total Protein 6.7 Albumin 2.4 L Hep C Ab Diagnostic Hepatitis C RNA HCV RNA PCR log copy camera operator/ml HCV RNA (PCR) IUs/ml HCV RNA PCR w/Genot Rflx Liver Fibrosis Interp 06/03/18 12:31 WBC RBC Hgb Hct MCV MCH MCHC RDW Plt Count MPV Absolute Neuts (auto) Neutrophils % Lymphocytes % Monocytes % Eosinophils % Basophils % Nucleated RBC % PT with INR INR PTT (Actin FS) Sodium Potassium Chloride Carbon Dioxide Anion Gap BUN Creatinine Creat Clearance w eGFR POC Glucometer 194 Random Glucose Hemoglobin A1c % Calcium Phosphorus Magnesium Total Bilirubin AST ALT Alkaline Phosphatase B-Natriuretic Peptide Total Protein Albumin Hep C Ab Diagnostic Hepatitis C RNA HCV RNA PCR log copy camera operator/ml HCV RNA (PCR) IUs/ml HCV RNA PCR w/Genot Rflx Liver Fibrosis Interp Active Medications Generic Name Dose Route Start Last Admin Trade Name Freq PRN Reason Stop Dose Admin Carvedilol 25 mg 06/02/18 22:00 06/03/18 09:28 Coreg - PO 25 mg BID KRISTEN Administration Epoetin Dylon 5,000 unit 06/04/18 16:36 Procrit - IVPUSH 06/04/18 16:37 ONCE ONE Furosemide 40 mg 06/03/18 10:00 06/03/18 09:28 Lasix - PO 40 mg DAILY KRISTEN Administration Heparin Sodium (Porcine) 5,000 unit 06/02/18 22:00 06/03/18 14:19 Heparin - SQ Not Given TID KRISTEN Sodium Chloride 250 mls @ 3,000 mls/hr 06/02/18 18:30 Normal Saline - IV 06/03/18 18:29 PRN PRN Hypotension during Dialysis Dextrose 1,000 mls @ 50 mls/hr 06/03/18 15:53 D5w - IV ASDIR KRISTEN Sodium Chloride 250 mls @ 3,000 mls/hr 06/03/18 16:36 Normal Saline - IV 06/04/18 16:36 PRN PRN Hypotension during Dialysis Pantoprazole Sodium 40 mg 06/02/18 22:00 06/03/18 09:28 Protonix - PO 40 mg BID KRISTEN Administration Sevelamer Carbonate 1,600 mg 06/02/18 22:00 06/03/18 14:41 Renvela - PO 1,600 mg TID KRISTEN Administration Trazodone HCl 50 mg 06/02/18 22:00 06/02/18 21:21 Desyrel - PO 50 mg HS KRISTEN Administration ASSESSMENT/PLAN: 53yo M with significant history of ESRD (), DM, HTN, gastric ulcer who presents to the ER today due to generalized weakness , mechanical fall, miss HD 06/01 , was found to have Hyperkalemia 7.9 and hyponatremia of 122 and was admitted to tele for urgernt HD and further monitoring # Hypervolemic Hyponatremia 2/2 to missed dialysis sessions - Na 122 w/o mental status changes. overcorrected to Na 135 s/p Emergent dialysis * Nephrology on board * monitor BMP and mental status * d5w to slow the rate of sodium rising * hd again tomorrow in am * unable to dialyze today secondary to staffing * * pt says that he wants to do the ct scan as outpt - spoke to GI, pt need ct scan with contrast. Explained to pt that he should get HD right after the scan in order to help preserve his residual renal function # Hyper kalemia - 7.8 with no EKG changes noted above. Now resolved * s/p CaGluconate x1, Albuterol dose x1, and D50/Insulin 8 U cocktail * s/p urgent HD * [facility] nephrology was consulted # ESRD - tolerated emergent HD yesterday with 2kg removal * Schedule * Pt continually refuses to received AVF creation * currently being trained for PD as he feels it is something he would be more compliant with. * he has port in right side of his chest * avoid NSAIDS and ARBS/ACEI * hd again tomorrow in am * unable to dialyze today secondary to staffing #abnormal liver chemistry and a liver mass noted first in 2016. -GI consult -CT A/P with and without IV/PO contrast to evaluate the liver mass. -Contrast administration in ESRD/HD -AFP, CEA, CA19-9, viral hepatitis serologies. -HD right after the scan in order to help preserve his residual renal function # S/P mechanical fall * denies LOC or head trauma * fall precautions * Pt eval * refused PAUL #HTN * Continue home dose medications #Hx of DM- not on any medications at home. last A1c in the system 5.6 in 2016. # Normocytic anemia likely 2/2 CKD * H/H stable at base line , no active bleeding * Monitor CBC * epogen for anemia FEN: * Fluids: Avoid * Electrolyte abnormalities as above, repeat after HD * Nutrition: Renal/sodium/diabetic PPX: * DVT SCDS both legs * GI: protonix 40 mg BID daily home meds # Dispo: * tele Visit type - Emergency Visit Emergency Visit: Yes ED Registration Date: 06/02/18 Care time: The patient presented to the Emergency Department on the above date and was hospitalized for further evaluation of their emergent condition. - New Patient This patient is new to me today: Yes Date on this admission: 06/03/18 - Critical Care Critical Care patient: No
[2018-06-03] MEDS: traZODone HCL 50 MG TABLET (FP) PO SCH (23:00)
[2018-06-04] MEDS: HEPARIN NA (PORCINE) 5,000 UNITS/ML 1ML VIAL SQ SCH ×2 (05:51→13:25)
[2018-06-04] MEDS: SEVELAMER CARBONATE 800 MG TAB (FP) PO SCH ×2 (06:59→13:25)
[2018-06-04 07:47] LABS: ANION GAP 12 MMOL/L (8-16); BLOOD UREA NITROGEN 61 mg/dL (7-18); CALCIUM 7.3 mg/dL (8.5-10.1); CHLORIDE 92 mmol/L (98-107); CO2 25 mmol/L (21-32); GLUCOSE,RANDOM 105 mg/dL (74-106); POTASSIUM 5.1 mmol/L (3.5-5.1); SODIUM 129 mmol/L (136-145)
[2018-06-04 07:52] LABS: HEMATOCRIT 28.1 % (35.4-49); HEMOGLOBIN 9.4 GM/dL (11.7-16.9); MCH 34.9 pg (25.7-33.7); MCHC 33.4 g/dl (32.0-35.9); MEAN CELL VOLUME 104.5 fl (80-96); MEAN PLT VOLUME 8.9 fl (7.5-11.1); PLATELET COUNT 208 K/MM3 (134-434); RBC 2.69 M/mm3 (4.00-5.60); RDW 15.4 % (11.9-15.9); WHITE BLOOD COUNT 6.8 K/mm3 (4.0-10.0)
[2018-06-04 07:56] LABS: CREATININE 8.9 mg/dL (0.7-1.3)
--- NOTE | 2018-06-04 09:53 | PN ---
Progress Note (short form) - Note Progress Note: Was informed by the pt's nurse this am that the pt refused inpatient CT. Requested prescription to have it done as OP instead. Problem List - Problems (1) Liver mass Code(s): R16.0 - HEPATOMEGALY, NOT ELSEWHERE CLASSIFIED (2) Abnormal liver CT Code(s): R93.2 - ABNORMAL FINDINGS ON DX IMAGING OF LIVER AND BILIARY TRACT
[2018-06-04] MEDS ORDERED: SODIUM CHLORIDE 250 ML IV PRN (10:52)
[2018-06-04] MEDS ORDERED: EPOETIN ALFA 2,000 UNIT, EPOETIN ALFA 3,000 UNIT IVPUSH ONE (11:00)
--- NOTE | 2018-06-04 11:35 | PN ---
Teaching Attending Note Name of Resident: Randall Dickson ATTENDING PHYSICIAN STATEMENT I saw and evaluated the patient. I reviewed the resident's note and discussed the case with the resident. I agree with the resident's findings and plan as documented. SUBJECTIVE:asymptomatic. currently receving HD. refused CT this AM. denies CP, SOB, fever, chills, N/V/C/D OBJECTIVE: Last Vital Signs Temp Pulse Resp BP Pulse Ox 18 F L 88 18 136/85 99 06/04/18 11:00 06/04/18 11:30 06/04/18 11:30 06/04/18 11:30 06/03/18 21:00 General NAD, ASSESSMENT AND PLAN: 53yo M with PMH ESRD on HD (TTS) with plan for PD, DM, HTN and GI bleed presented to the ER with progressively worsening weakness for 3-4 days and found to have severe hyperkalemia and significant metabolic derangements 1. Severe hyperkalemia-resolved after HD. no EKG changes 2. Mechanical fall- due to generalized weakness due to metabolic derangements. pain is controlled. PT eval. 3. ESRD on HD-currently receiving HD. is currently being trained for PD. cont per normal schedule. 4. Hypervolemic hyponatremia- due to missed HD. 2Kg removal with HD. slowly trending back down. appears in hx is known to run low. will d/w renal if he owuld benefit from salt tabs or just frequent monitoring. 5. Liver lesion- has not followed up for CT as outpatient. was scheduled to have it done today prior to HD but patient refused. verbalized understanding of need to be done and the difficulty in obtaining as outpatient as needs to be done on HD day. expresses he will get it done as outpatient 6. Hx of DM- not on any medications at home. last A1c in the system 5.6 in 2017. 7. HTN- controlled. cont home medications 8. DVT ppx- hep sq 9. d/c home today
--- NOTE | 2018-06-04 13:05 | PN ---
Progress Note, Physician History of Present Illness: Pt seen and examined at bedside. He is awake and alert. He is tolerating HD. He denies shortness of breath. He is eager to go home. - Current Medication List Current Medications: Active Medications Carvedilol (Coreg -) 25 mg PO BID [facility] Last Admin: 06/03/18 23:00 Dose: 25 mg Furosemide (Lasix -) 40 mg PO DAILY [facility] Last Admin: 06/03/18 09:28 Dose: 40 mg Heparin Sodium (Porcine) (Heparin -) 5,000 unit SQ TID [facility] Last Admin: 06/04/18 05:51 Dose: 5,000 unit Pantoprazole Sodium (Protonix -) 40 mg PO BID [facility] Last Admin: 06/03/18 23:00 Dose: 40 mg Sevelamer Carbonate (Renvela -) 1,600 mg PO TID [facility] Last Admin: 06/04/18 06:59 Dose: 1,600 mg Trazodone HCl (Desyrel -) 50 mg PO HS [facility] Last Admin: 06/03/18 23:00 Dose: 50 mg - Objective Vital Signs: Vital Signs Temperature 18 F L 06/04/18 11:00 Pulse Rate 87 06/04/18 12:30 Respiratory Rate 18 06/04/18 12:30 Blood Pressure 143/95 06/04/18 12:30 O2 Sat by Pulse Oximetry (%) 100 06/04/18 09:00 Constitutional: Yes: Calm Eyes: Yes: Conjunctiva Clear HENT: Yes: Atraumatic Neck: Yes: Supple Cardiovascular: Yes: S1, S2 Respiratory: Yes: CTA Bilaterally Gastrointestinal: Yes: Soft Genitourinary: Yes: WNL Musculoskeletal: Yes: WNL Edema: No Neurological: Yes: Oriented Psychiatric: Yes: Oriented Labs: CBC, BMP 06/04/18 05:30 06/04/18 05:30 INR, PTT INR 1.11 (0.83-1.09) H 06/03/18 06:24 Problem List - Problems (1) Hyperkalemia Code(s): E87.5 - HYPERKALEMIA (2) Hyponatremia Code(s): E87.1 - HYPO-OSMOLALITY AND HYPONATREMIA (3) Anemia Code(s): D64.9 - ANEMIA, UNSPECIFIED (4) Chronic anemia Code(s): D64.9 - ANEMIA, UNSPECIFIED (5) Diabetes Code(s): E11.9 - TYPE 2 DIABETES MELLITUS WITHOUT COMPLICATIONS Qualifiers: (6) ESRD (end stage renal disease) Code(s): N18.6 - END STAGE RENAL DISEASE Assessment/Plan Current Medications Generic Name Dose Route Start Last Admin Trade Name Freq PRN Reason Stop Dose Admin Carvedilol 25 mg 06/02/18 22:00 06/03/18 23:00 Coreg - PO 25 mg BID KRISTEN Administration Furosemide 40 mg 06/03/18 10:00 06/03/18 09:28 Lasix - PO 40 mg DAILY KRISTEN Administration Heparin Sodium (Porcine) 5,000 unit 06/02/18 22:00 06/04/18 05:51 Heparin - SQ 5,000 unit TID KRISTEN Administration Pantoprazole Sodium 40 mg 06/02/18 22:00 06/03/18 23:00 Protonix - PO 40 mg BID KRISTEN Administration Sevelamer Carbonate 1,600 mg 06/02/18 22:00 06/04/18 06:59 Renvela - PO 1,600 mg TID KRISTEN Administration Trazodone HCl 50 mg 06/02/18 22:00 06/03/18 23:00 Desyrel - PO 50 mg HS KRISTEN Administration Impression 1. ESRD 2. DM 3. hyponatremia 4. HTN 5. obesity 6. anemia 7. iron deficiency 8. CHF 9. anemia 10. hyperkalemia 11. liver mass 12. hx GI bleed 13. diabetic nephropathy 14. non compliance with HD treatment regimen 15. bleeding from PD catheter site Plan - HD today - pt has HD scheduled as outpt - he will follow with GI for liver mass - pt is poorly compliant with treatment and meds - discussed importance of follow up - nohemi for anemia Dr Quezada
[2018-06-04] MEDS: FUROSEMIDE 40 MG TABLET (FP) PO SCH (14:56)
[2018-06-04] MEDS: CARVEDILOL 25 MG TABLET (FP) PO SCH (14:57)
[2018-06-04] MEDS: PANTOPRAZOLE 40 MG TABLET (FP) PO SCH (14:58)
[2018-06-04 15:08] VITALS: BP 132/85; PULSE 96; TEMP 99.1
--- NOTE | 2018-06-04 15:37 | DS ---
Physical Exam: SUBJECTIVE: Patient seen and examined at bedside. no acute events overnight. HD yesterday and today. denies weakness, fevers, cp ,sob ,n/v/d OBJECTIVE: Vital Signs Period Temp Pulse Resp BP Sys/Hayden Pulse Ox Last 24 Hr 18 F-99.1 F 67-96 16-20 118-164/78-103 99-100 PHYSICAL EXAM GENERAL: AAOx3 in NAD HEAD: NC/AT , EYES: LEFT eye LIU, EOMI , sclera anicteric, conjunctiva clear. 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 No wheezes, and no crackles. No accessory muscle use. HEART: RRR, normal S1 and S2 without murmur, rub or gallop. ABDOMEN: Soft, right upper and lower quadrant tenderness, distended, normative bowel sounds, no guarding, UPPER EXTREMITIES: 2+ pulses, warm, well-perfused. No cyanosis. No clubbing. No peripheral edema. LOWER EXTREMITIES: 2+ pulses, warm, well-perfused. No calf tenderness. No peripheral edema. left leg 4/5 strength , sensation intact. right leg 5/5 proximal in distal , sensation intact. NEUROLOGICAL: Cranial nerves II-XII intact. Normal speech. PSYCHIATRIC: Cooperative. Good eye contact. Appropriate mood and affect. SKIN: Warm, dry, normal turgor, LABS Laboratory Results - last 24 hr 06/02/18 06/03/18 06/03/18 18:00 16:15 17:04 WBC RBC Hgb Hct MCV MCH MCHC RDW Plt Count MPV Sodium 128 L Potassium Chloride Carbon Dioxide Anion Gap BUN Creatinine Creat Clearance w eGFR POC Glucometer 176 Random Glucose Calcium Hep C Ab Diagnostic 0.2 Liver Fibrosis Interp 06/04/18 06/04/18 05:30 05:30 WBC 6.8 RBC 2.69 L Hgb 9.4 L Hct 28.1 L MCV 104.5 H MCH 34.9 H MCHC 33.4 RDW 15.4 Plt Count 208 MPV 8.9 Sodium 129 L Potassium 5.1 Chloride 92 L Carbon Dioxide 25 Anion Gap 12 BUN 61 H Creatinine 8.9 H* Creat Clearance w eGFR 6.32 POC Glucometer Random Glucose 105 Calcium 7.3 L Hep C Ab Diagnostic Liver Fibrosis Interp HOSPITAL COURSE: Date of Admission:06/02/18 Date of Discharge: 06/04/18 53yo M with significant history of ESRD (T//Thu), DM, HTN, gastric ulcer who presents to the ER today due to generalized weakness , mechanical fall, miss HD 06/01 , was found to have Hyperkalemia 7.9 and hyponatremia of 122 and was [facility] for urgernt HD and further monitoring Admitted for emergent HD for multiple electrolyte abnormalities 2/2 to missed dialysis sessions. Pt was hyper K w/ no EKG changes and CXR neg. Tx w/ CaGluconate, Albuterol dose, and D50/Insulin cocktail and went for HD. Renal consult. S/p HD pt sodium overcorrected. Pt was given d5w fluids and sodium normalized. Of note pt had clements abnormal liver chemistry and a liver mass noted first in 2016. GI consulted. AFP, CEA, CA19-9, viral hepatitis serologies were ordered. Pt was set to go for CT A/P with and without IV/PO contrast to evaluate the liver mass w/ HD right after the scan in order to help preserve residual renal function. Pt however refused to go and says that he wants to do the ct scan as outpt. pt will receive one more HD session prior to discharge. Pt is stable and ready for discharge w/ appropriate outpt f/u and will be training for PD. Minutes to complete discharge: 40 Discharge Summary Reason For Visit: END STAGE RENAL DISEASE; HYPERKALEMIA Current Active Problems Abnormal liver CT (Acute) Hyperkalemia (Acute) Anemia (Chronic) Chronic anemia (Chronic) Diabetes (Chronic) Dialysis patient (Chronic) ESRD (end stage renal disease) (Chronic) Liver mass (Chronic) Condition: Stable - Instructions Diet, Activity, Other Instructions: You were admitted for multiple electrolyte abnormalities due to missing your dialysis appointment. We dialyzed you and your electrolytes corrected. Also you were noted to have some type of mass in your liver. We suggested to do a CT scan of the Liver but you refused and decided to follow up outpatien. it is important that you have this scan done on a dialysis day prior to dialysis. Please follow up with your kidney and GI doctor about getting the CT scan outpatient. Please resume your home meds Please continue going to your scheduled dialysis appointments Please follow up with your primary care physician in 1 week Please follow up with your kidney doctor in 1 week Please follow up with your GI doctor in 1 week If you experience any increase in weakness, blurry vision , chest pain , shortness of breath, abdominal pain, increase in weight of 3 pounds in less than 2 days, nausea, vomit, diarrhea, please come to the ER or call 911 Referrals: Alex Denis MD [Staff Physician] - 1 Week Cate Quezada MD [Staff Physician] - 1 Week Disposition: HOME - Home Medications Comprehensive Discharge Medication List: Ambulatory Orders Carvedilol [Coreg] 25 mg PO BID #60 tablet 10/01/16 Furosemide [Lasix -] 40 mg PO DAILY 07/30/17 Sevelamer Carbonate [Renvela -] 1,600 mg PO TID 01/27/18 traZODone HCL [Trazodone HCl] 50 mg PO HS 04/07/18 Pantoprazole Sodium 40 mg PO BID 05/04/18 Atorvastatin Calcium 20 mg PO DAILY 06/03/18 Lisinopril 30 mg PO DAILY 06/03/18 This patient is new to me today: Yes Date on this admission: 06/04/18 Emergency Visit: Yes ED Registration Date: 06/02/18 Care time: The patient presented to the Emergency Department on the above date and was hospitalized for further evaluation of their emergent condition. Critical Care patient: No - Discharge Referral Referred to [facility] Med P.[facility] No
[2018-06-04] MEDS ORDERED: EPOETIN ALFA 3,000 UNIT/1 ML ML IVPUSH ONE (16:36)
[2018-06-05 00:07] LABS: HBSAG SCREEN Negative (Negative); HEP A AB, IGM Negative (Negative); HEP B CORE AB, TOT Negative (Negative)
[2018-06-05 06:10] LABS: HEP A AB, IGM Negative (Negative)
== END 2018-06-04 16:25 | disposition home or self-care (01) | DRG 682 ==
LOC: JER 09:38 → JERBED 15:50 → J4W 17:20
PROVIDERS: ADMIT Internal Medicine; ATTEND Internal Medicine
PROC: 5A1D70Z Performance of Urinary Filtration, Intermittent, Less than 6 Hours Per Day (ICD-10-PCS; principal; 2018-06-03)
DX: I12.0 Hypertensive chronic kidney disease with stage 5 chronic kidney disease or end stage renal disease (principal); N18.6 End stage renal disease; E87.1 Hypo-osmolality and hyponatremia; E11.22 Type 2 diabetes mellitus with diabetic chronic kidney disease; Z99.2 Dependence on renal dialysis; D64.9 Anemia, unspecified; Z87.11 Personal history of peptic ulcer disease; I44.0 Atrioventricular block, first degree; E87.5 Hyperkalemia; D50.9 Iron deficiency anemia, unspecified; E66.9 Obesity, unspecified; Z68.30 Body mass index [BMI] 30.0-30.9, adult; R16.0 Hepatomegaly, not elsewhere classified; E11.21 Type 2 diabetes mellitus with diabetic nephropathy; Z91.15 Patient's noncompliance with renal dialysis; D63.1 Anemia in chronic kidney disease; H54.62 Unqualified visual loss, left eye, normal vision right eye
CPT/HCPCS: 36415; 71045-TC-FY; 80048; 80053; 82105; 82378; 82550; 82962; 83036; 83735; 83880; 84100; 84295; 84484; 85025; 85027; 85610; 85730; 86301; 86704; 86706; 86708; 86803; 87340; 93005; 93010; 97116-GP; 97161-GP; 99285-25; J0885; J1644

== ENCOUNTER 2018-08-08 20:35 | Inpatient (IN) | payer OTHER, BC ==
[2018-08-08] MEDS ORDERED: predniSONE 20 MG TABLET (UD) ONE (20:49)
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
[2018-08-08 21:27] LABS: BASO % 0.1 % (0-2.0); EOS % 0.8 % (0-4.5); HEMATOCRIT 29.7 % (35.4-49); HEMOGLOBIN 9.3 GM/dl (11.7-16.9); LYMPH % 11.6 % (8-40); MCH 31.8 pg (25.7-33.7); MCHC 31.4 g/dl (32.0-35.9); MEAN CELL VOLUME 101.3 fl (80-96); MEAN PLT VOLUME 9.5 fl (7.5-11.1); MONO % 7.2 % (3.8-10.2); NEUT % 80.3 % (42.8-82.8); PLATELET COUNT 372 K/MM3 (134-434); RBC 2.93 M/mm3 (4.00-5.60); RDW 17.8 % (11.9-15.9); WHITE BLOOD COUNT 11.2 K/mm3 (4.0-10.8)
[2018-08-08] MEDS ORDERED: CLINDAMYCIN 900 MG PREMIX IVPB 900 MG/50 ML BAG IVPB ONE (21:28)
[2018-08-08 21:33] LABS: ANION GAP 14 MMOL/L (8-16); BILIRUBIN,TOTAL 1.6 mg/dl (0.2-1.0); BLOOD UREA NITROGEN 63 mg/dl (7-18); CALCIUM 7.8 mg/dl (8.4-10.2); CHLORIDE 95 mmol/L (98-107); CO2 19 mmol/L (22-28); GLUCOSE,RANDOM 191 mg/dl (74-106); SGOT/AST 198 U/L (10-42); SGPT/ALT 133 U/L (10-40); SODIUM 128 mmol/L (136-145)
[2018-08-08] MEDS ORDERED: CLINDAMYCIN PHOSPHATE 300 MG/2 ML VIAL ONE (21:33)
[2018-08-08 21:56] LABS: CREATININE 7.6 mg/dl (0.6-1.3)
[2018-08-08 22:12] LABS: ALK PHOS 1510 U/L (32-92)
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
[2018-08-08] MEDS ORDERED: SODIUM CHLORIDE 500 ML IV STA (23:59)
[2018-08-09] MEDS ORDERED: SODIUM CHLORIDE 250 ML IV STA (01:15)
[2018-08-09] MEDS ORDERED: DOXYCYCLINE HYCLATE 100 MG CAPSULE PO ONE (01:16)
[2018-08-09 01:28] VITALS: BMI 29.9
[2018-08-09] MEDS ORDERED: CLINDAMYCIN 900 MG PREMIX IVPB 900 MG/50 ML BAG IVPB SCH (05:00)
--- NOTE | 2018-08-09 07:44 | PN ---
Physical Exam: SUBJECTIVE: Patient seen and examined OBJECTIVE: Vital Signs Period Temp Pulse Resp BP Sys/Hayden Pulse Ox Last 24 Hr 98.1 F-98.8 F 90-111 14-20 144-154/86-95 99-100 GENERAL: The patient is awake, alert, and fully oriented, in no acute distress. HEAD: Normal with no signs of trauma. EYES: PERRL, extraocular movements intact, sclera anicteric, conjunctiva clear. No ptosis. ENT: Ears normal, nares patent, oropharynx clear without exudates, moist mucous membranes. NECK: Trachea midline, full range of motion, supple. LUNGS: Breath sounds equal, clear to auscultation bilaterally, no wheezes, no crackles, no accessory muscle use. HEART: Regular rate and rhythm, S1, S2 without murmur, rub or gallop. ABDOMEN: Soft, nontender, nondistended, normoactive bowel sounds, no guarding, no rebound, no hepatosplenomegaly, no masses. EXTREMITIES: 2+ pulses, warm, well-perfused, no edema. NEUROLOGICAL: Cranial nerves II through XII grossly intact. Normal speech, gait not observed. PSYCH: Normal mood, normal affect. SKIN: Warm, dry, normal turgor, no rashes or lesions noted Laboratory Results - last 24 hr 08/08/18 08/08/18 20:51 20:51 WBC 11.2 H RBC 2.93 L Hgb 9.3 L Hct 29.7 L MCV 101.3 H MCH 31.8 D MCHC 31.4 L RDW 17.8 H Plt Count 372 D MPV 9.5 Absolute Neuts (auto) 9.0 Neutrophils % 80.3 Lymphocytes % 11.6 D Monocytes % 7.2 Eosinophils % 0.8 Basophils % 0.1 Sodium 128 L Potassium 4.0 D Chloride 95 L Carbon Dioxide 19 L Anion Gap 14 BUN 63 H Creatinine 7.6 H* Creat Clearance w eGFR 7.58 Random Glucose 191 H D Calcium 7.8 L Total Bilirubin 1.6 H AST 198 H D ALT 133 H D Alkaline Phosphatase 1510 H Total Protein 6.0 L Albumin 2.0 L Active Medications Generic Name Dose Route Start Last Admin Trade Name Freq PRN Reason Stop Dose Admin Heparin Sodium (Porcine) 5,000 unit 08/09/18 10:00 Heparin - SQ BID KRISTEN Clindamycin Phosphate 900 mg in 50 mls @ 100 mls/hr 08/09/18 05:00 08/09/18 04:52 Cleocin 900 Mg Premix Ivpb - IVPB 100 mls/hr TID KRISTEN Administration Protocol ASSESSMENT/PLAN:
[2018-08-09 08:12] LABS: EOS % 1.3 % (0-4.5); HEMATOCRIT 27.2 % (35.4-49); HEMOGLOBIN 8.6 GM/dl (11.7-16.9); LYMPH % 13.8 % (8-40); MCHC 31.8 g/dl (32.0-35.9); MEAN CELL VOLUME 100.9 fl (80-96); MEAN PLT VOLUME 9.3 fl (7.5-11.1); MONO % 9.4 % (3.8-10.2); NEUT % 75.5 % (42.8-82.8); PLATELET COUNT 317 K/MM3 (134-434); RBC 2.69 M/mm3 (4.00-5.60); RDW 17.7 % (11.9-15.9); WHITE BLOOD COUNT 10.7 K/mm3 (4.0-10.8)
[2018-08-09 08:21] LABS: BLOOD UREA NITROGEN 70 mg/dl (7-18); CALCIUM 7.5 mg/dl (8.4-10.2); CHLORIDE 93 mmol/L (98-107); CO2 18 mmol/L (22-28); GLUCOSE,RANDOM 90 mg/dl (74-106); MAGNESIUM 1.5 mg/dL (1.8-2.4); PHOSPHOROUS 5.4 mg/dl (2.5-4.6); POTASSIUM 3.6 mmol/L (3.5-5.1)
[2018-08-09 08:46] LABS: SODIUM 125 mmol/L (136-145)
[2018-08-09 08:48] LABS: ANION GAP 14 MMOL/L (8-16)
[2018-08-09 08:49] LABS: CREATININE 8.3 mg/dl (0.6-1.3)
[2018-08-09] MEDS: HEPARIN NA (PORCINE) 5,000 UNITS/ML 1ML VIAL SQ SCH ×2 (09:27→09:36)
--- NOTE | 2018-08-09 09:47 | EKG ---
Test Reason : Blood Pressure : / mmHG Vent. Rate : 099 BPM Atrial Rate : 099 BPM P-R Int : 166 ms QRS Dur : 096 ms QT Int : 386 ms P-R-T Axes : 003 -68 034 degrees QTc Int : 495 ms NORMAL SINUS RHYTHM LEFT AXIS DEVIATION PROLONGED QT ABNORMAL ECG WHEN COMPARED WITH ECG OF 02-JUN-2018 15:19, T WAVE VARIATION Confirmed by LAURA LEWIS MD ([id number]) on 08/09/2018 9:47:26 AM Referred By: SEVEN SHELLEY Confirmed By:LAURA LEWIS MD
[2018-08-09] MEDS ORDERED: FUROSEMIDE 40 MG TABLET (FP) PO SCH (10:00)
[2018-08-09] MEDS ORDERED: PANTOPRAZOLE 40 MG TABLET (FP) PO SCH (10:00)
[2018-08-09] MEDS ORDERED: CARVEDILOL 25 MG TABLET (FP) PO SCH (10:00)
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
[2018-08-09] MEDS ORDERED: SEVELAMER CARBONATE 800 MG TAB (FP) PO SCH (12:00)
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
[2018-08-09] MEDS ORDERED: CLINDAMYCIN HCL 150 MG CAPSULE (FP) PO SCH (14:00)
[2018-08-09] MEDS ORDERED: LACTOBACILLUS ACIDOPHILUS 1 TABLET PO SCH (14:00)
[2018-08-09 14:02] VITALS: BP 136/80; PULSE 91; TEMP 97.8
[2018-08-09] MEDS ORDERED: traZODone HCL 50 MG TABLET (FP) PO SCH (22:00)
== END 2018-08-09 14:26 | disposition home or self-care (01) | DRG 383 ==
LOC: FER 20:35 → FM/S 22:19 → UNDOADMIN 23:56
PROVIDERS: ADMIT Internal Medicine; ATTEND Nurse Practitioner Family
DX: L03.114 Cellulitis of left upper limb (principal); N18.6 End stage renal disease; E87.1 Hypo-osmolality and hyponatremia; I12.0 Hypertensive chronic kidney disease with stage 5 chronic kidney disease or end stage renal disease; R74.0 Nonspecific elevation of levels of transaminase and lactic acid dehydrogenase [LDH]; D72.829 Elevated white blood cell count, unspecified; D64.9 Anemia, unspecified; R94.31 Abnormal electrocardiogram [ECG] [EKG]; Z88.0 Allergy status to penicillin; R50.9 Fever, unspecified; E11.22 Type 2 diabetes mellitus with diabetic chronic kidney disease
CPT/HCPCS: 36415; 71045-TC-FY; 73090-TC-LT-FY; 80048; 80053; 83735; 84100; 85025; 87040; 93005; 99285-25; J1644

== ENCOUNTER 2018-08-14 20:51 | Emergency (ER) | payer BC, OTHER ==
[2018-08-14 20:58] VITALS: BP 122/91; PULSE 111; TEMP 98.5; BMI 30.2
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
[2018-08-14 22:26] LABS: BASO % 0.4 % (0-2.0); EOS % 0.3 % (0-4.5); HEMATOCRIT 29.4 % (35.4-49); HEMOGLOBIN 9.9 GM/dL (11.7-16.9); LYMPH % 10.5 % (8-40); MCHC 33.8 g/dl (32.0-35.9); MEAN CELL VOLUME 100.7 fl (80-96); MONO % 12.2 % (3.8-10.2); NEUT % 76.6 % (42.8-82.8); PLATELET COUNT 285 K/MM3 (134-434); RBC 2.92 M/mm3 (4.00-5.60); RDW 20.1 % (11.9-15.9); WHITE BLOOD COUNT 7.8 K/mm3 (4.0-10.0)
[2018-08-14 22:43] LABS: INR 1.16 (0.83-1.09); PROTHROMBIN TIME (PATIENT) 13.7 SEC (9.7-13.0)
[2018-08-14 23:04] LABS: ALK PHOS 1275 U/L (45-117); ANION GAP 11 MMOL/L (8-16); BILIRUBIN,TOTAL 1.1 mg/dL (0.2-1); BLOOD UREA NITROGEN 37 mg/dL (7-18); CALCIUM 8.1 mg/dL (8.5-10.1); CHLORIDE 101 mmol/L (98-107); CO2 25 mmol/L (21-32); GLUCOSE,RANDOM 130 mg/dL (74-106); LIPASE 385 U/L (73-393); POTASSIUM 3.9 mmol/L (3.5-5.1); SGOT/AST 176 U/L (15-37); SGPT/ALT 99 U/L (13-61); SODIUM 137 mmol/L (136-145); TOT PROT 6.5 g/dl (6.4-8.2)
[2018-08-14 23:42] LABS: ANISOCYTOSIS 1+; MACROCYTOSIS 1+; PLATELET ESTIMATE ADEQUATE
[2018-08-15] MEDS ORDERED: SODIUM PHOSPHATE/NA BIPHOS 133 ML ENEMA PR ONE (01:41)
--- NOTE | 2018-08-15 01:41 | PDOC ---
*Physical Exam - Vital Signs Last Vital Signs Temp Pulse Resp BP Pulse Ox 98.5 F 111 H 18 122/91 100 08/14/18 20:54 08/14/18 20:54 08/14/18 20:54 08/14/18 20:54 08/14/18 20:54 - Physical Exam Comments: 08/15/18 01:40 EST General Appearance: Nourished. No Apparent Distress HEENT: No Pharyngeal Erythema, Tonsillar Exudate, Tonsillar Erythema Neck: No Cervical Lymphadenopathy Respiratory/Chest: Lungs Clear, Normal Breath Sounds. No Crackles, Rales, Rhonchi, Wheezing Cardiovascular: Regular Rhythm, Regular Rate. No Murmur, Gallops, Rubs Gastrointestinal/Abdominal: Normal Bowel Sounds, Soft. Distended abdomen. No Guarding, Rebound, Tenderness Musculoskeletal: No CVA Tenderness Extremity: Normal Capillary Refill Integumentary: Normal Color, Dry, Warm Neurologic: Fully Oriented, Alert, Normal Mood/Affect, Normal Response, ED Treatment Course - LABORATORY CBC & Chemistry Diagram: 08/14/18 22:12 08/14/18 22:12 - ADDITIONAL ORDERS Additional order review: Laboratory Results 08/14/18 08/14/18 08/14/18 22:12 22:12 22:12 PT with INR 13.70 H INR 1.16 H PTT (Actin FS) 30.0 Sodium Potassium Chloride Carbon Dioxide Anion Gap BUN Creatinine Creat Clearance w eGFR Random Glucose Lactic Acid 1.5 Calcium Total Bilirubin AST ALT Alkaline Phosphatase Creatine Kinase Troponin I Total Protein Albumin Lipase Blood Type O POSITIVE Antibody Screen Negative 08/14/18 22:12 PT with INR INR PTT (Actin FS) Sodium 137 Potassium 3.9 Chloride 101 Carbon Dioxide 25 Anion Gap 11 BUN 37 H Creatinine 6.0 H Creat Clearance w eGFR 9.96 Random Glucose 130 H Lactic Acid Calcium 8.1 L Total Bilirubin 1.1 H AST 176 H ALT 99 H Alkaline Phosphatase 1275 H Creatine Kinase 54 Troponin I < 0.02 Total Protein 6.5 Albumin 2.0 L Lipase 385 Blood Type Antibody Screen 08/14/18 22:12 RBC 2.92 L MCV 100.7 H MCHC 33.8 RDW 20.1 H MPV 9.0 Neutrophils % 76.6 Lymphocytes % 10.5 D Monocytes % 12.2 H Eosinophils % 0.3 D Basophils % 0.4 - RADIOLOGY Radiology Studies Ordered: Category Date Time Status GALLBLADDER US [US] Stat Ultrasound 08/15/18 00:47 Ordered *DC/Admit/Observation/Transfer Diagnosis at time of Disposition: Abdominal pressure Constipation Qualifiers: Constipation type: unspecified constipation type Qualified Code(s): K59.00 - Constipation, unspecified - Discharge Dispostion Disposition: HOME Condition at time of disposition: Stable Decision to Admit order: No - Referrals Referrals: Billy Becerra MD [Primary Care Provider] - - Patient Instructions Printed Discharge Instructions: DI for Constipation Additional Instructions: Please return to the ER if you experience concerning or worsening symptoms including worsening difficulty breathing, weakness, or chest pain, vomiting, abdominal pain. Your lab results and imaging studies were normal here in the ER. Please call to schedule a follow up appointment with your primary care provider within 2-3 days to discuss your ER visit and further management of your symptoms. - Post Discharge Activity
--- NOTE | 2018-08-15 11:40 | EKG ---
Test Reason : Blood Pressure : / mmHG Vent. Rate : 107 BPM Atrial Rate : 107 BPM P-R Int : 152 ms QRS Dur : 088 ms QT Int : 370 ms P-R-T Axes : 012 -62 034 degrees QTc Int : 493 ms POOR DATA QUALITY, INTERPRETATION MAY BE ADVERSELY AFFECTED SINUS TACHYCARDIA LEFT ANTERIOR FASCICULAR BLOCK POOR R WAVE PROGRESSION ABNORMAL ECG WHEN COMPARED WITH ECG OF 08-AUG-2018 22:40, NO SIGNIFICANT CHANGE WAS FOUND Confirmed by OSMEL JOHNSON MD ([id number]) on 08/15/2018 11:40:28 AM Referred By: Confirmed By:OSMEL JOHNSON MD
== END 2018-08-15 01:48 | disposition home or self-care (01) ==
LOC: JER 20:51
DX: K59.00 Constipation, unspecified (principal); I12.0 Hypertensive chronic kidney disease with stage 5 chronic kidney disease or end stage renal disease; E11.22 Type 2 diabetes mellitus with diabetic chronic kidney disease; N18.6 End stage renal disease; N17.8 Other acute kidney failure; Z99.2 Dependence on renal dialysis; R16.0 Hepatomegaly, not elsewhere classified
CPT/HCPCS: 36415; 74176-TC; 76705-TC; 80053; 82550; 83605; 83690; 84484; 85025; 85610; 85730; 86850; 86900; 86901; 93005; 93010; 99282-25

== ENCOUNTER 2018-08-16 08:40 | Inpatient (IN) | payer BC, OTHER ==
--- NOTE | 2018-08-16 09:21 | PDOC ---
History of Present Illness - General Chief Complaint: Pain Stated Complaint: REVISIT, ABD PAIN Time Seen by Provider: 08/16/18 09:20 History Source: Patient Exam Limitations: No Limitations - History of Present Illness Initial Comments: Pt is a 53 yo M, with PMH of DM, HTN, GIB, anemia, ESRD (T/R/), who is presenting with abdominal distension. Pt presented with similar complaint 08/14; work-up showed hepatic cysts and ascites via CT abd/pelvis at that time. He tried using a fleet enema yesterday morning, and GasX with passage of only one soft brown BM this AM. Pt has peritoneal dialysis catheter (is now using R subclavian catheter for HD), and is supposed to have PD catheter removed next week. He is also supposed to have renal cysts worked-up at [facility]. However, pt has very poor follow-up and has refused GI consults/work-up in the past. Pt denies any fevers/chills, headache, vision changes, chest pain, SOB, nausea/vomiting, diarrhea, or increased leg swelling. PCP: Dr. Mehdi Becerra ([facility]) 08/17/18 14:51 Past History - Travel Traveled outside of the country in the last 30 days: No Close contact w/someone who was outside of country & ill: No - Past Medical History Allergies/Adverse Reactions: Allergies Allergy/AdvReac Type Severity Reaction Status Date / Time Penicillins Allergy Intermediate Verified 08/16/18 08:54 Home Medications: Ambulatory Orders Sevelamer Carbonate [Renvela -] 1,600 mg PO TID 01/27/18 traZODone HCL [Trazodone HCl] 50 mg PO HS 04/07/18 Pantoprazole Sodium 40 mg PO BID 05/04/18 Docusate Sodium [Stool Softener] 100 mg PO ASDIR 08/16/18 Simethicone [Gas-X] 125 mg PO ASDIR 08/16/18 Anemia: Yes Asthma: No Cancer: No Cardiac Disorders: No CVA: No COPD: No CHF: No Dementia: No Diabetes: Yes (DIET CONTROLLED) Dialysis: Yes (,,) GI Disorders: Yes (gastic ulcer) Disorders: Yes (RENAL INSUFFICIENCY) HTN: Yes Hypercholesterolemia: No Kidney Stones: (KIDNEY DISEASE) Liver Disease: No Seizures: No Thyroid Disease: No - Surgical History Abdominal Surgery: (PD DIALYSIS SHUNT) - Immunization History Immunization Up to Date: Yes - Suicide/Smoking/Psychosocial Hx Smoking Status: No Smoking History: Unknown if ever smoked Have you smoked in the past 12 months: No Number of Cigarettes Smoked Daily: 0 Hx Alcohol Use: No Drug/Substance Use Hx: No Substance Use Type: None Hx Substance Use Treatment: No Review of Systems - Review of Systems Able to Perform ROS?: Yes Is the patient limited Hungarian proficient: No Constitutional: Yes: Weight Stable. No: Chills, Diaphoresis, Fever, Loss of Appetite, Malaise, Weakness HEENTM: No: Blurred Vision, Double Vision, Nose Congestion, Hearing Loss, Difficulty Swallowing Respiratory: Yes: Shortness of Breath (SOB due to distension), SOB with Exertion , SOB at Rest. No: Cough, Orthopnea, Productive cough Cardiac (ROS): No: Chest Pain, Edema, Irregular Heart Rate, Lightheadedness, Palpitations, Syncope, Chest Tightness ABD/GI: Yes: Abdominal Distended, Constipated. No: Abd. Pain w/ defecation, Blood Streaked Bowels, Diarrhea, Nausea, Poor Appetite, Poor Fluid Intake, Rectal Bleeding, Vomiting, Abdominal cramping : No: Burning, Frequency, Pain (very minimal urine output, no dysuria), Urgency Musculoskeletal: No: Back Pain, Joint Pain, Muscle Weakness Integumentary: No: Bruising, Erythema, Rash Neurological: No: Headache, Numbness, Paresthesia, Seizure, Weakness, Unsteady Gait, Ataxia, Dizziness Psychiatric: No: Sleep Pattern Change, Change in Appetite Endocrine: No: Increased Urine, Change in Weight Hematologic/Lymphatic: No: Symptoms Reported, Anemia, Blood Clots, Easy Bleeding *Physical Exam - Vital Signs Last Vital Signs Temp Pulse Resp BP Pulse Ox 97.9 F 119 H 20 145/102 H 100 08/16/18 08:58 08/16/18 08:58 08/16/18 08:58 08/16/18 08:58 08/16/18 08:58 - Physical Exam General Appearance: Yes: Nourished, Appropriately Dressed, Obese. No: Apparent Distress HEENT: positive: EOMI, ENEDINA, Normal ENT Inspection, Normal Voice, Symmetrical, Pharynx Normal, Hearing Grossly Normal. negative: Scleral Icterus (R), Scleral Icterus (L), Pharyngeal Erythema, Tonsillar Exudate, Tonsillar Erythema, Nasal Congestion, Rhinorrhea, Sinus Tenderness Neck: positive: Trachea midline, Normal Thyroid, Supple. negative: Tender, Rigid, Lymphadenopathy (R), Lymphadenopathy (L) Respiratory/Chest: positive: Lungs Clear, Normal Breath Sounds. negative: Chest Tender, Respiratory Distress, Accessory Muscle Use, Crackles, Wheezing Cardiovascular: positive: Regular Rhythm, S1, S2, Edema (b/l pitting LE edema, pt states chronic), Tachycardia. negative: Regular Rate, JVD, Murmur Vascular Pulses: Carotid (R): 4+, Carotid (L): 4+ Gastrointestinal/Abdominal: positive: Normal Bowel Sounds, Protuberent, Distended. negative: Tender, Flat, Soft, Organomegaly, Pulsatile Mass, Guarding , Rebound, Tenderness, Hernia Rectal Exam: positive: other (pt refused) Lymphatic: negative: Adenopathy, Tenderness Musculoskeletal: positive: Normal Inspection. negative: CVA Tenderness Extremity: positive: Normal Capillary Refill, Normal Inspection, Normal Range of Motion, Pelvis Stable, Pedal Edema (b/l mild LE pitting edema, pt states chronic. No ulcers.). negative: Tender, Swelling, Calf Tenderness, Erythema Integumentary: positive: Normal Color, Dry, Warm. negative: Jaundice, Clammy, Diaphoresis, Ecchymosis Neurologic: positive: environmental project manager II-XII NML intact, Fully Oriented, Alert, Normal Mood/ Affect, Normal Response, Motor Strength 5/5 ED Treatment Course - LABORATORY CBC & Chemistry Diagram: 08/17/18 06:10 08/17/18 06:10 Medical Decision Making - Medical Decision Making Pt was seen at bedside, also will be seen by attending Dr. Cooper. Pt presenting with abdominal distension. Pt presented with similar complaint 08/14; work-up showed hepatic cysts and ascites via CT abd/pelvis at that time. He tried using a fleet enema yesterday morning, and GasX with passage of only one soft brown BM this AM. Pt has peritoneal dialysis catheter (is now using R subclavian catheter for HD), and is supposed to have PD catheter removed next week. He is also supposed to have renal cysts worked-up at [facility]. However, pt has very poor follow-up and has refused GI consults/work-up in the past. Pt denies any fevers/chills, headache, vision changes, chest pain, SOB, nausea/ vomiting, diarrhea, or increased leg swelling. Considering worsening ascites vs constipation. Clinical picture not concerning for obstruction (no n/v, passing flatulence, soft BM this AM). Pt has hepatic cysts, concerning for malignancy. Ordered work-up including CBC, CMP, Mg, Phos to monitor electrolytes, considering ESRD. Provided 500 mL NS to see if this reduces constipation. Will continue to reassess pt and monitor for symptomatic improvement. 08/16/18 10:05 Labs sent, pending results. 08/16/18 10:11 CBC and CMP WNL for pt. Pending creatinine. Spoke with Dr. Quezada, who requested admission for pt due to unreliable follow -up. He is concerned pt will not get his peritoneal dialysis catheter removed, and pt has refused GI follow-up/imaging in the past. Bedside US showed ascites x4 quadrants. 08/16/18 11:14 Creatinine 8.6 (baseline 7-8s). Web Merchandiser paging to determine who is procurement consultant for [facility] (PCP Dr. Mehdi Becerra ) 08/16/18 11:[address] Carlton, who will admit pt to his service for further evaluation, potential removal of his peritoneal dialysis catheter, and liver biopsy. ECG showed sinus tachycardia, HR 110. 08/16/18 11:38 Pt has been admitted, pending transfer to the floor. Providing 50 mg PO Ultram for pain control. 08/16/18 17:38 08/17/18 14:50 08/17/18 19:51 *DC/Admit/Observation/Transfer Diagnosis at time of Disposition: ESRD (end stage renal disease) on dialysis Ascites Qualifiers: Ascites type: other type Qualified Code(s): R18.8 - Other ascites Diabetes Qualifiers: Diabetes mellitus type: type 2 Diabetes mellitus manager intermediate insulin use: with senior living use Diabetes mellitus complication status: without complication Qualified Code(s): E11.9 - Type 2 diabetes mellitus without complications - Discharge Dispostion Condition at time of disposition: Stable Decision to Admit order: Yes - Referrals - Patient Instructions - Post Discharge Activity
[2018-08-16] MEDS ORDERED: SODIUM PHOSPHATE/NA BIPHOS 133 ML ENEMA PR ONE (09:41)
--- NOTE | 2018-08-16 09:43 | PDOC ---
Attending Attestation - Resident Resident Name: Chantel Wheeler - ED Attending Attestation I have performed the following: I have examined & evaluated the patient, The case was reviewed & discussed with the resident, I agree w/resident's findings & plan, Exceptions are as noted - HPI HPI: 08/16/18 09:43 53y M hx of dm, htn, ESRD (T, Th, Sa, last dialysis Sa), GIB, anemia, presents with complaint of 5-6 days of increasing abdominal distension. Pt was formerly evaluated in the ED 3 days ago where he got CT/US. Pt has awaiting fu with a liver specialist at [place] for a CT with contrast. Pt is feeling increased distension/bloated. Pt did an enema last night and some enemas thinking it may be due to constipation, had a small soft BM this morning that didnt change his distension. Pt notes he has not eated much brodie past few days because he thought it would make him more bloated. Denies any fever/chills, n/v, diarrhea, melena, bpr, cp, sob, palpitations, n/v , lightehadedness. Patient is aformerly was an alcoholic, currently drinks 1 drink a night PMD:Dr. Becerra - Physicial Exam PE: 08/16/18 10:21 GENERAL: The patient is awake, alert, and fully oriented, Nontoxic - in no acute distress. HEAD: Normocephalic, atraumatic. EYES: extraocular movements intact, slightlyjaundiced, conjunctiva clear. ENT: Normal voice, Moist mucous membranes. NECK: Normal range of motion, supple LUNGS: Breath sounds equal, clear to auscultation bilaterally. No wheezes, no rhonchi, no rales. HEART: Regular rate and rhythm, normal S1 and S2 without murmur, rub or gallop. ABDOMEN: Soft, distended, mild diffuse tenderness, no rebound or guarding, + peritoneal cathter in the RLQ that is c/d/i EXTREMITIES: Normal range of motion, no edema. NEUROLOGICAL: No facial assymetry, Normal speech, moving all 4 extremity spontaneously and symmetrically PSYCH: Normal mood, normal affect. SKIN: Warm, Dry, normal turgor, - Medical Decision Making 08/16/18 10:53 ddx - suspect his abd distension is due to acites no fever or signifciant tenderness to suggest sbp pt noted tachy but suspect pt hasnot been eating/drinking like usual freedom give gentle hydration will reassess 08/16/18 11:46 Case was discussed with Dr. Mahoney, requests admission for further evaluation as the patient is not reliable for removal of his catheter Heart Score/ECG Review - ECG Impressions Comment:: 08/16/18 11:46 Twelve-lead EKG was performed and reviewed by me. There is normal sinus rhythm with a rate of 111 Left Anterior fascicular block
[2018-08-16] MEDS ORDERED: SODIUM CHLORIDE 1,000 ML IV STA (09:56)
[2018-08-16] MEDS ORDERED: SODIUM CHLORIDE 500 ML IV STA (10:03)
[2018-08-16 10:17] LABS: BASO % 0.5 % (0-2.0); HEMATOCRIT 28.4 % (35.4-49); HEMOGLOBIN 9.7 GM/dL (11.7-16.9); LYMPH % 10.9 % (8-40); MCH 34.5 pg (25.7-33.7); MCHC 34.2 g/dl (32.0-35.9); MEAN PLT VOLUME 8.6 fl (7.5-11.1); MONO % 13.5 % (3.8-10.2); NEUT % 74.1 % (42.8-82.8); PLATELET COUNT 283 K/MM3 (134-434); RBC 2.81 M/mm3 (4.00-5.60); RDW 19.4 % (11.9-15.9); WHITE BLOOD COUNT 7.5 K/mm3 (4.0-10.0)
[2018-08-16 10:57] LABS: ALK PHOS 1424 U/L (45-117); ANION GAP 13 MMOL/L (8-16); BILIRUBIN,TOTAL 0.9 mg/dL (0.2-1); BLOOD UREA NITROGEN 50 mg/dL (7-18); CALCIUM 7.5 mg/dL (8.5-10.1); CHLORIDE 99 mmol/L (98-107); CO2 22 mmol/L (21-32); GLUCOSE,RANDOM 104 mg/dL (74-106); MAGNESIUM 1.6 mg/dL (1.8-2.4); PHOSPHOROUS 4.1 mg/dL (2.5-4.9); POTASSIUM 3.9 mmol/L (3.5-5.1); SGOT/AST 200 U/L (15-37); SGPT/ALT 114 U/L (13-61); SODIUM 134 mmol/L (136-145); TOT PROT 6.5 g/dl (6.4-8.2)
[2018-08-16 11:18] LABS: CREATININE 8.6 mg/dL (0.55-1.3)
--- NOTE | 2018-08-16 11:57 | EKG ---
Test Reason : Blood Pressure : / mmHG Vent. Rate : 111 BPM Atrial Rate : 111 BPM P-R Int : 150 ms QRS Dur : 088 ms QT Int : 344 ms P-R-T Axes : 018 -49 031 degrees QTc Int : 467 ms SINUS TACHYCARDIA LEFT ANTERIOR FASCICULAR BLOCK ABNORMAL ECG WHEN COMPARED WITH ECG OF 14-AUG-2018 23:03, NO SIGNIFICANT CHANGE WAS FOUND Confirmed by LAURA LEWIS MD ([id number]) on 08/16/2018 11:56:57 AM Referred By: Confirmed By:LAURA LEWIS MD
[2018-08-16] MEDS ORDERED: SODIUM CHLORIDE 250 ML IV PRN (13:20)
--- NOTE | 2018-08-16 13:31 | HP ---
Admitting History and Physical - Primary Care Physician PCP: Billy Becerra S - Admission Chief Complaint: came in for abdominal distension and bloating for a few days History of Present Illness: 53y M hx of dm, htn, ESRD (, , , last dialysis ), GIB, anemia, presents with complaint of 5-6 days of increasing abdominal distension. Pt was formerly evaluated in the ED 3 days ago where he got CT/US. Pt has awaiting fu with a liver specialist at [place] for a CT with contrast. Pt is feeling increased distension/bloated. Pt did an enema last night and some enemas thinking it may be due to constipation, had a small soft BM this morning that didnt change his distension. Pt notes he has not eaten much the past few days because he thought it would make him more bloated.patient recently at [facility] for a insect bite on his arm Denies any fever/chills, n/v, diarrhea, melena, bpr, cp, sob, palpitations, n/v , lightehadedness. Patient is aformerly was an alcoholic, currently drinks 1 drink a night PMD:Dr. Becerra History Source: Patient - Past Medical History Cardiovascular: Yes: HTN, Hyperlipdemia Gastrointestinal: Yes: GI Bleed Renal/: Yes: Renal Failure, Renal Inusuff, Hemodialysis Heme/Onc: Yes: Anemia Endocrine: Yes: Diabetes Mellitus - Past Surgical History Past Surgical History: Yes: AV Fistula/Graft - Smoking History Smoking history: Unknown if ever smoked Have you smoked in the past 12 months: No Aproximately how many cigarettes per day: 0 - Alcohol/Substance Use Hx Alcohol Use: No History of Substance Use: reports: None - Social History ADL: Independent History of Recent Travel: No Home Medications - Allergies Allergies/Adverse Reactions: Allergies Allergy/AdvReac Type Severity Reaction Status Date / Time Penicillins Allergy Intermediate Verified 08/16/18 08:54 - Home Medications Home Medications: Ambulatory Orders Sevelamer Carbonate [Renvela -] 1,600 mg PO TID 01/27/18 traZODone HCL [Trazodone HCl] 50 mg PO HS 04/07/18 Pantoprazole Sodium 40 mg PO BID 05/04/18 Docusate Sodium [Stool Softener] 100 mg PO ASDIR 11/05/18 Simethicone [Gas-X] 125 mg PO ASDIR 08/16/18 Family Disease History - Family Disease History Family Disease History: Diabetes: Brother (CVA), Heart Disease: Father Review of Systems - Review of Systems Gastrointestinal: reports: Abdominal Pain, Bloating Physical Examination Vital Signs: Vital Signs Temperature 97.9 F 08/16/18 08:58 Pulse Rate 119 H 08/16/18 08:58 Respiratory Rate 20 08/16/18 08:58 Blood Pressure 145/102 H 08/16/18 08:58 O2 Sat by Pulse Oximetry (%) 100 08/16/18 08:58 Constitutional: Yes: Calm Cardiovascular: Yes: Regular Rate and Rhythm, S1, S2 Respiratory: Yes: CTA Bilaterally Gastrointestinal: Yes: Ascites, Distention, Other (PD cath) Edema: Yes Neurological: Yes: Alert, Oriented Labs: CBC, BMP 08/16/18 10:03 08/16/18 10:03 Problem List - Problems (1) Ascites Assessment/Plan: ct scan GI eval Code(s): R18.8 - OTHER ASCITES Qualifiers: Ascites type: other type Qualified Code(s): R18.8 - Other ascites (2) ESRD (end stage renal disease) on dialysis Assessment/Plan: HD In AM ct scan prior to HD tmw Code(s): N18.6 - END STAGE RENAL DISEASE; Z99.2 - DEPENDENCE ON RENAL DIALYSIS (3) Abnormal liver CT Assessment/Plan: repeat ct scan with contrst tmw- liver mass dvt ppx gi eval was seen by dr herring in past Code(s): R93.2 - ABNORMAL FINDINGS ON DX IMAGING OF LIVER AND BILIARY TRACT (4) Hypertensive cardiomegaly with heart failure Assessment/Plan: echo\cardiology eval\ elevated BP start medications Code(s): I11.0 - HYPERTENSIVE HEART DISEASE WITH HEART FAILURE
[2018-08-16] MEDS ORDERED: DOCUSATE SODIUM 100 MG CAPSULE (FP) PO PRN (13:34)
--- NOTE | 2018-08-16 14:28 | CON.CARD ---
Consult Consult Specialty:: Cardiology Reason for Consultation:: HTN - History of Present Illness History of Present Illness: 53y M hx of dm, htn, ESRD (T, , , last dialysis ), had been on PD during the summer but switched back to HD, GIB, anemia, presents with complaint of 5-6 days of abdominal distension. Pt was formerly evaluated in the ED 3 days ago where he got CT/US. Pt has awaiting fu with a liver specialist at [place] for a CT with contrast CT showed significant ascites and liver abnormality. Pt is feeling increased distension/bloated. Pt did an enema last night and some enemas thinking it may be due to constipation, had a small soft BM this morning that didnt change his distension. Pt notes he has not eaten much the past few days because he thought it would make him more bloated. There is no chest pain or dyspnea. No edema. - History Source History Provided By: Patient, Medical Record Limitations to Obtaining History: No Limitations - Past Medical History Cardio/Vascular: Yes: HTN, Hyperlipdemia Gastrointestinal: Yes: GI Bleed Renal/: Yes: Renal Failure, Renal Inusuff, Hemodialysis Endocrine: Yes: Diabetes Mellitus - Past Surgical History Past Surgical History: Yes: AV Fistula/Graft - Alcohol/Substance Use Hx Alcohol Use: No History of Substance Use: reports: None - Smoking History Smoking history: Unknown if ever smoked Have you smoked in the past 12 months: No Aproximately how many cigarettes per day: 0 - Social History ADL: Independent History of Recent Travel: No Home Medications - Allergies Allergies/Adverse Reactions: Allergies Allergy/AdvReac Type Severity Reaction Status Date / Time Penicillins Allergy Intermediate Verified 08/16/18 08:54 - Home Medications Home Medications: Ambulatory Orders Sevelamer Carbonate [Renvela -] 1,600 mg PO TID 01/27/18 traZODone HCL [Trazodone HCl] 50 mg PO HS 04/07/18 Pantoprazole Sodium 40 mg PO BID 05/04/18 Docusate Sodium [Stool Softener] 100 mg PO ASDIR 08/16/18 Simethicone [Gas-X] 125 mg PO ASDIR 08/16/18 Family Disease History - Family Disease History Family Disease History: Diabetes: Brother (CVA), Heart Disease: Father Review of Systems - Review of Systems Constitutional: denies: Chills, Diaphoresis, Fever Eyes: reports: No Symptoms HENT: reports: No Symptoms Neck: reports: No Symptoms Cardiovascular: reports: No Symptoms. denies: Chest Pain, Edema, Palpitations, Shortness of Breath Respiratory: reports: No Symptoms Gastrointestinal: reports: Abdominal Pain, Bloating. denies: Dysphagia, Indigestion, Melena, Rectal Bleeding, Vomiting Genitourinary: reports: No Symptoms Vital Signs: Vital Signs Temperature 97.9 F 08/16/18 08:58 Pulse Rate 119 H 08/16/18 08:58 Respiratory Rate 20 08/16/18 08:58 Blood Pressure 145/102 H 08/16/18 08:58 O2 Sat by Pulse Oximetry (%) 100 08/16/18 08:58 Constitutional: Yes: Well Nourished, No Distress, Calm Eyes: Yes: Conjunctiva Clear, EOM Intact HENT: Yes: Atraumatic, Normocephalic Neck: Yes: Supple, Trachea Midline Respiratory: Yes: Regular, CTA Bilaterally Gastrointestinal: Yes: Normal Bowel Sounds, Distention Cardiovascular: Yes: Regular Rate and Rhythm JVD: No Carotid Bruit: No Heart Sounds: Yes: S1, S2 Murmur: No: Systolic Murmur, Diastolic Murmur Edema: No - Other Data Labs, Other Data: CBC, BMP 08/16/18 10:03 08/16/18 10:[address] T changes. Problem List - Problems (1) Ascites Code(s): R18.8 - OTHER ASCITES Qualifiers: Ascites type: other type Qualified Code(s): R18.8 - Other ascites (2) ESRD (end stage renal disease) on dialysis Code(s): N18.6 - END STAGE RENAL DISEASE; Z99.2 - DEPENDENCE ON RENAL DIALYSIS Assessment/Plan 53y M hx of dm, htn, ESRD (T, , , last dialysis ), had been on PD during the summer but switched back to HD, presents with complaint of 5-6 days of abdominal distension. CT showed significant ascites and liver abnormality. Pt is feeling increased distension/bloated. Pt did an enema last night and some enemas thinking it may be due to constipation, had a small soft BM this morning that didnt change his distension. Pt notes he has not eaten much the past few days because he thought it would make him more bloated. There is no chest pain or dyspnea. No edema. Significant ascites and possible liver pathology on CT scan. -Consider paracentesis. -Echocardiogram to assess RV function -HTN history. Added ARB. will follow BP.
--- NOTE | 2018-08-16 15:48 | CONSULT ---
Consult Consult Specialty:: Nephrology Reason for Consultation:: ESRD - History of Present Illness Chief Complaint: abdominal distention and ascites History of Present Illness: Pt is a 53 year old male with pmhx of esrd, htn, dm, liver mass under workup, GI bleed, anemia and non compliance who presents to the ER complaining of bloating and abdominal distension. He was found to have ascites. He is currently on HD. He was on PD for a few weeks over the summer but was not able to complete the exchanges and he switched back to HD. He denies fevers or chills. He still has the PD catheter. He denies blood in stool. He denies shortness of breath. He is on a TTS HD schedule. Pt says that he started following with a GI doctor in [facility] but does not know the name. - History Source History Provided By: Patient - Past Medical History Cardio/Vascular: Yes: HTN, Hyperlipdemia Gastrointestinal: Yes: GI Bleed Renal/: Yes: Renal Failure, Renal Inusuff, Hemodialysis Endocrine: Yes: Diabetes Mellitus - Past Surgical History Past Surgical History: Yes: AV Fistula/Graft - Alcohol/Substance Use Hx Alcohol Use: No History of Substance Use: reports: None - Smoking History Smoking history: Unknown if ever smoked Have you smoked in the past 12 months: No Aproximately how many cigarettes per day: 0 - Social History ADL: Independent History of Recent Travel: No Home Medications - Allergies Allergies/Adverse Reactions: Allergies Allergy/AdvReac Type Severity Reaction Status Date / Time Penicillins Allergy Intermediate Verified 08/16/18 08:54 - Home Medications Home Medications: Ambulatory Orders Sevelamer Carbonate [Renvela -] 1,600 mg PO TID 01/27/18 traZODone HCL [Trazodone HCl] 50 mg PO HS 04/07/18 Pantoprazole Sodium 40 mg PO BID 05/04/18 Docusate Sodium [Stool Softener] 100 mg PO ASDIR 08/16/18 Simethicone [Gas-X] 125 mg PO ASDIR 08/16/18 Family Disease History - Family Disease History Family Disease History: Diabetes: Brother (CVA), Heart Disease: Father Review of Systems - Review of Systems Constitutional: reports: Malaise Eyes: reports: No Symptoms HENT: reports: No Symptoms Neck: reports: No Symptoms Cardiovascular: reports: Edema Respiratory: reports: No Symptoms Gastrointestinal: reports: Bloating, Constipation. denies: Abdominal Pain Genitourinary: reports: No Symptoms Musculoskeletal: reports: No Symptoms Neurological: reports: No Symptoms Endocrine: reports: No Symptoms Psychiatric: reports: No Symptoms Physical Exam Vital Signs: Vital Signs Temperature 97.9 F 08/16/18 08:58 Pulse Rate 119 H 08/16/18 08:58 Respiratory Rate 20 08/16/18 08:58 Blood Pressure 145/102 H 08/16/18 08:58 O2 Sat by Pulse Oximetry (%) 100 08/16/18 08:58 Constitutional: Yes: Calm Eyes: Yes: Conjunctiva Clear HENT: Yes: Atraumatic Neck: Yes: Supple Cardiovascular: Yes: S1, S2 Respiratory: Yes: CTA Bilaterally Gastrointestinal: Yes: Ascites Renal/: Yes: WNL Musculoskeletal: Yes: Muscle Weakness Edema: Yes Edema: LLE: Trace, RLE: Trace Neurological: Yes: Oriented Psychiatric: Yes: Oriented Labs: CBC, BMP 08/16/18 10:03 08/16/18 10:03 Laboratory Tests 08/16/18 10:03 AST 200 H ALT 114 H Alkaline Phosphatase 1424 H Imaging - Results Cat Scan: Report Reviewed (10 cm mass in liver) Ultrasound: Report Reviewed (ascites) Problem List - Problems (1) Ascites Code(s): R18.8 - OTHER ASCITES Qualifiers: Ascites type: other type Qualified Code(s): R18.8 - Other ascites (2) ESRD (end stage renal disease) on dialysis Code(s): N18.6 - END STAGE RENAL DISEASE; Z99.2 - DEPENDENCE ON RENAL DIALYSIS (3) Diabetes Code(s): E11.9 - TYPE 2 DIABETES MELLITUS WITHOUT COMPLICATIONS Qualifiers: Diabetes mellitus type: type 2 Diabetes mellitus penitentiary insulin use: with penitentiary use Diabetes mellitus complication status: without complication Qualified Code(s): E11.9 - Type 2 diabetes mellitus without complications; Z79.4 - [facility] (current) use of insulin (4) Abnormal liver CT Code(s): R93.2 - ABNORMAL FINDINGS ON DX IMAGING OF LIVER AND BILIARY TRACT Assessment/Plan Current Medications Generic Name Dose Route Start Last Admin Trade Name Freq PRN Reason Stop Dose Admin Docusate Sodium 100 mg 08/16/18 13:34 Colace - PO BID PRN CONSTIPATION Heparin Sodium (Porcine) 5,000 unit 08/16/18 22:00 Heparin - SQ BID KRISTEN Sevelamer Carbonate 1,600 mg 08/16/18 17:30 Renvela - PO TIDCM KRISTEN Trazodone HCl 50 mg 08/16/18 22:00 Desyrel - PO HS KRISTEN Valsartan 160 mg 08/17/18 10:00 Diovan - PO DAILY KRISTEN Impression 1. ESRD 2. DM 3. ascites 4. HTN 5. obesity 6. anemia 7. iron deficiency 8. CHF 9. anemia 10. non compliance 11. liver mass 12. hx GI bleed 13. diabetic nephropathy Plan - will arrange for HD in am - can have ct with contrast before HD if needed - surgey to remove PD catheter, pt has failed to make an appointment to remove it as outpt - GI eval for ascites - liver mass workup in progress per pt as outpt - will follow Dr Quezada
--- NOTE | 2018-08-16 15:57 | CON.GI ---
Consult Consult Specialty:: GI Referred by:: Dr. Joelle Redding Reason for Consultation:: Ascites and Liver mass - History of Present Illness Chief Complaint: Abdominal distention History of Present Illness: 53M admitted for evaluation of abdominal distention. He had CT scan of the abdomen without contrast 08/14/18. US at that time failed to reveal biliary ductal dilatation. the CT scan also revealed liver masses and a large amount of ascites. He has not had peritoneal dialysis for 3 weeks. He had an AFP tumor marker of 48,417 05/29 and 14,935 in 2017. He has apparently been non complaint with follow-up. Liver chemistries have been abnormal for quite some time. He had an EGD performed by Dr. Alex Denis 01/27 revealing antral and duodenal ulcers. He denies a family history of cancer. He denies abdominal pain. He is scheduled to have his PD catheter removed. - History Source History Provided By: Patient, Medical Record - Past Medical History Cardio/Vascular: Yes: HTN, Hyperlipdemia Gastrointestinal: Yes: GI Bleed (s/p EGD 01/26: ) Renal/: Yes: Renal Failure, Renal Inusuff, Hemodialysis Endocrine: Yes: Diabetes Mellitus - Past Surgical History Past Surgical History: Yes: AV Fistula/Graft Additional Surgical History: PD dialysis catheter, eye surgery - Alcohol/Substance Use Hx Alcohol Use: No History of Substance Use: reports: None - Smoking History Smoking history: Never smoked Have you smoked in the past 12 months: No Aproximately how many cigarettes per day: 0 - Social History ADL: Independent Place of : [facility] History of Recent Travel: No Home Medications - Allergies Allergies/Adverse Reactions: Allergies Allergy/AdvReac Type Severity Reaction Status Date / Time Penicillins Allergy Intermediate Verified 08/16/18 08:54 - Home Medications Home Medications: Ambulatory Orders Sevelamer Carbonate [Renvela -] 1,600 mg PO TID 01/27/18 traZODone HCL [Trazodone HCl] 50 mg PO HS 04/07/18 Pantoprazole Sodium 40 mg PO BID 05/04/18 Docusate Sodium [Stool Softener] 100 mg PO ASDIR 08/16/18 Simethicone [Gas-X] 125 mg PO ASDIR 08/16/18 Family Disease History - Family Disease History Family Disease History: Diabetes: Brother (2, 1 with CVA, 1 healthy), Heart Disease: Father (: 62: CHF), Other: Father, Mother (Alive: wasnt clear as to her med. problems), Brother Other Family History: No family history of cancer Review of Systems - Review of Systems Constitutional: denies: Fever Respiratory: denies: Cough, SOB Gastrointestinal: reports: Bloating. denies: Abdominal Pain Physical Exam-GI Vital Signs: Vitals: 15:45 T: 98.7 P: 112 R: 16 BP: 153/96 O2 Sat: 99% Constitutional: Yes: Calm Eyes: No: Sclera Icterus Cardiovascular: Yes: Tachycardia Gastrointestinal Inspection: Yes: Ascites, Distention, Other (PD port in lower abdomen) ...Auscultate: Yes: Normoactive Bowel Sounds ...Palpate: No: Tenderness ...Percussion: Yes: Fluid Wave. No: Tympanitic Edema: No (No LE edema) Labs: Laboratory Tests 08/14/18 08/16/18 08/16/18 22:12 10:03 10:03 WBC 7.5 RBC 2.81 L Hgb 9.7 L Hct 28.4 L MCV 101.0 H MCHC 34.2 RDW 19.4 H Plt Count 283 PT with INR 13.70 H INR 1.16 H Sodium 134 L Potassium 3.9 Chloride 99 Carbon Dioxide 22 Anion Gap 13 BUN 50 H Creatinine 8.6 H* Creat Clearance w eGFR 6.58 Random Glucose 104 Calcium 7.5 L Magnesium 1.6 L Total Bilirubin 0.9 AST 200 H ALT 114 H Alkaline Phosphatase 1424 H Laboratory Tests 07/30/17 06/04/18 18:30 05:30 Tumor Marker AFP 92983.0 H 20113.0 H Imaging - Results Cat Scan: Report Reviewed Problem List - Problems (1) Abnormal liver CT Assessment/Plan: Given findings and extent of AFP tumor marker elevation in setting of suspected chronic liver disease and short of their being a metastatic testicular mass, this is highly concerning for HCC. Advise: Oncology evaluation Paracentesis: diagnostic/therapeutic, with fluid sent for culture, cell count with diff, AFB culture/smear, albumin, total protein, glucose, LDH, cytology Triple phase CT scan of the abdomen /pelvis with and without contrast when able Discussed with patient of my concern of diagnosis of liver cancer Code(s): R93.2 - ABNORMAL FINDINGS ON DX IMAGING OF LIVER AND BILIARY TRACT
--- NOTE | 2018-08-16 16:15 | PN ---
Progress Note (short form) - Note Progress Note: Called to eval patient with PMHx of ESRD on HD, HTN, DM, liver mass (in process of getting worked-up) and anemia. Comes to ER w/ c/o abd bloating. Found to have ascites. Per medical records, he is on HD...used to do via PD this past summer but switched back as he wasn't able to complete the exchanges. Scheduled T--Sat. Patient still has PD cath in place. Supposed to get removed as out-patient but non-compliant. Nephrology would like for Vascular Surgery to remove PD cath on this admission. Dr. Mike to see patient and formalize plan.
[2018-08-16] MEDS ORDERED: traMADol HCL 50 MG TABLET PO ONE ×2 (17:37→22:55)
[2018-08-16] MEDS ORDERED: traMADol HCL 50 MG TABLET ONE (17:39)
[2018-08-16] MEDS: SEVELAMER CARBONATE 800 MG TAB (FP) PO SCH (18:13)
[2018-08-16] MEDS: traZODone HCL 50 MG TABLET (FP) PO SCH (21:47)
[2018-08-16] MEDS: HEPARIN NA (PORCINE) 5,000 UNITS/ML 1ML VIAL SQ SCH (21:50)
[2018-08-17 07:20] LABS: BASO % 0.5 % (0-2.0); EOS % 1.2 % (0-4.5); HEMATOCRIT 29.4 % (35.4-49); HEMOGLOBIN 9.3 GM/dL (11.7-16.9); LYMPH % 15.6 % (8-40); MCH 32.3 pg (25.7-33.7); MCHC 31.7 g/dl (32.0-35.9); MEAN CELL VOLUME 101.7 fl (80-96); MEAN PLT VOLUME 9.1 fl (7.5-11.1); MONO % 9.5 % (3.8-10.2); NEUT % 73.2 % (42.8-82.8); PLATELET COUNT 316 K/MM3 (134-434); RBC 2.89 M/mm3 (4.00-5.60); RDW 19.4 % (11.9-15.9); WHITE BLOOD COUNT 8.4 K/mm3 (4.0-10.0)
[2018-08-17 08:09] LABS: ALK PHOS 1294 U/L (45-117); ANION GAP 12 MMOL/L (8-16); BLOOD UREA NITROGEN 60 mg/dL (7-18); CALCIUM 7.4 mg/dL (8.5-10.1); CHLORIDE 99 mmol/L (98-107); CO2 19 mmol/L (21-32); GLUCOSE,RANDOM 86 mg/dL (74-106); MAGNESIUM 1.7 mg/dL (1.8-2.4); PHOSPHOROUS 5.4 mg/dL (2.5-4.9); SGOT/AST 153 U/L (15-37); SGPT/ALT 98 U/L (13-61); SODIUM 131 mmol/L (136-145); TOT PROT 6.5 g/dl (6.4-8.2)
[2018-08-17 08:39] LABS: CREATININE 9.5 mg/dL (0.55-1.3)
[2018-08-17] MEDS: SEVELAMER CARBONATE 800 MG TAB (FP) PO SCH ×3 (11:48→18:15)
[2018-08-17] MEDS: VALSARTAN 160 MG TABLET (UD) PO SCH (11:48)
[2018-08-17] MEDS: HEPARIN NA (PORCINE) 5,000 UNITS/ML 1ML VIAL SQ SCH ×2 (11:48→22:17)
[2018-08-17 12:06] LABS: ANISOCYTOSIS 1+; MACROCYTOSIS 1+; PLATELET ESTIMATE NORMAL; TARGET CELLS 1+
[2018-08-17 13:21] LABS: BF WBC & OTHER NUCLEATED CELLS 360 /mm3
[2018-08-17 13:22] LABS: INR 1.15 (0.83-1.09); PROTHROMBIN TIME (PATIENT) 13.6 SEC (9.7-13.0)
[2018-08-17] MEDS ORDERED: EPOETIN ALFA 10,000 UNIT/1 ML VIAL IVPUSH ONE (13:30)
--- NOTE | 2018-08-17 13:43 | PN ---
Progress Note, Physician Chief Complaint: AWAKE ALERT CHART AND NOTES REVIEWED DENIES CHEST PAIN OR SOB - Current Medication List Current Medications: Active Medications Docusate Sodium (Colace -) 100 mg PO BID PRN PRN Reason: CONSTIPATION Heparin Sodium (Porcine) (Heparin -) 5,000 unit SQ BID [facility] Last Admin: 08/17/18 11:48 Dose: Not Given Sevelamer Carbonate (Renvela -) 1,600 mg PO TIDCM [facility] Last Admin: 08/17/18 11:48 Dose: 1,600 mg Trazodone HCl (Desyrel -) 50 mg PO HS [facility] Last Admin: 08/16/18 21:47 Dose: 50 mg Valsartan (Diovan -) 160 mg PO DAILY [facility] Last Admin: 08/17/18 11:48 Dose: 160 mg - Objective Vital Signs: Vital Signs Temperature 97.9 F 08/17/18 13:34 Pulse Rate 104 H 08/17/18 13:34 Respiratory Rate 20 08/17/18 13:34 Blood Pressure 118/61 08/17/18 13:34 O2 Sat by Pulse Oximetry (%) 96 08/17/18 09:00 Constitutional: Yes: Mild Distress Eyes: Yes: Other HENT: Yes: WNL Neck: Yes: WNL Cardiovascular: Yes: WNL Respiratory: Yes: WNL Gastrointestinal: Yes: Ascites, Distention Genitourinary: Yes: Other Musculoskeletal: Yes: WNL Extremities: Yes: WNL Edema: Yes Edema: LLE: Trace, RLE: Trace Peripheral Pulses WNL: Yes Integumentary: Yes: Venous Stasis Changes Wound/Incision: Yes: Clean/Dry Neurological: Yes: WNL ...Motor Strength: LLE, RLE Psychiatric: Yes: WNL Labs: CBC, BMP 08/17/18 06:10 INR, PTT INR 1.15 (0.83-1.09) H 08/17/18 12:10 Problem List - Problems (1) Ascites Code(s): R18.8 - OTHER ASCITES Qualifiers: Ascites type: other type Qualified Code(s): R18.8 - Other ascites (2) ESRD (end stage renal disease) on dialysis Code(s): N18.6 - END STAGE RENAL DISEASE; Z99.2 - DEPENDENCE ON RENAL DIALYSIS (3) Diabetes Code(s): E11.9 - TYPE 2 DIABETES MELLITUS WITHOUT COMPLICATIONS Qualifiers: Diabetes mellitus type: type 2 Diabetes mellitus correction insulin use: with correction use Diabetes mellitus complication status: without complication Qualified Code(s): E11.9 - Type 2 diabetes mellitus without complications; Z79.4 - dependency counselor (current) use of insulin (4) Dialysis patient Code(s): Z99.2 - DEPENDENCE ON RENAL DIALYSIS (5) History of duodenal ulcer Code(s): Z87.19 - PERSONAL HISTORY OF OTHER DISEASES OF THE DIGESTIVE SYSTEM (6) Hypertensive cardiomegaly with heart failure Code(s): I11.0 - HYPERTENSIVE HEART DISEASE WITH HEART FAILURE Assessment/Plan PATIENT TO HAVE DIALYSIS TODAY NEPHROLOGY F/U APPRECIATED NEEDS DIETARY CONSULT WITH LONG STANDING UNCONTROLLED DM AND HTN IN THE PAST WHICH ACCELERATED HIS RENAL NEPHROPATHY LIFESTYLE CHANGES AND PROPER MEDICAL F/U D/W PATIENT HE AGREES TO BE MORE ACCOUNTABLE 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 BGM CHECKS SSI PODIATRY CONSULT
[2018-08-17 13:49] LABS: BODY FLUID MESOTHELIAL 4 %; BODYL FLD EOSINOPHIL 1 %
[2018-08-17 13:50] LABS: BODY FLUID MACROPHAGES 46 %
[2018-08-17 14:21] LABS: BILIRUBIN,DIRECT 0.7 mg/dL (0.0-0.2)
--- NOTE | 2018-08-17 15:09 | PN ---
GI Progress Note Subjective: No acute events Had peritoneal fluid drained from PD catheter today Denies abdominal pain CT scan reveals areas of ill defined hypodensities in the liver, predominantly right lobe - Objective Vital Signs: Vital Signs Temperature 97.9 F 08/17/18 13:34 Pulse Rate 104 H 08/17/18 13:34 Respiratory Rate 20 08/17/18 13:34 Blood Pressure 118/61 08/17/18 13:34 O2 Sat by Pulse Oximetry (%) 96 08/17/18 09:00 Constitutional: Calm Eyes: No: Sclera Icterus Cardiovascular: Yes: Tachycardia Respiratory: Yes: CTA Bilaterally Gastrointestinal Inspection: Yes: Distention ...Auscultate: Yes: Normoactive Bowel Sounds ...Palpate: No: Hepatomegaly, Splenomegaly, Tenderness ...Percussion: No: Tympanitic Edema: Yes Edema: RLE: Trace Neurological: Yes: Alert Labs: CBC, BMP 08/17/18 06:10 INR, PTT INR 1.15 (0.83-1.09) H 08/17/18 12:10 Problem List - Problems (1) Hepatocellular carcinoma Assessment/Plan: Given CT scan findings and marked AFP elevation, suspect diffuse type HCC. I discussed this with Mr. Brar Awaiting oncology evaluation Code(s): C22.0 - LIVER CELL CARCINOMA
[2018-08-17] MEDS: ALBUMIN HUMAN 25% 12.5 GM/50 ML VIAL IVPB PRN ×2 (15:27→16:10)
--- NOTE | 2018-08-17 16:09 | PN ---
Progress Note, Physician History of Present Illness: Pt seen and examined at bedside. He is awake and alert. He tolerated HD. He has ascites removed via PD catheter today. - Current Medication List Current Medications: Active Medications Albumin Human (Albumin Human 25%) 12.5 gm IVPB Q30M PRN PRN Reason: HYPOTENSION Last Admin: 08/17/18 15:27 Dose: 12.5 gm Docusate Sodium (Colace -) 100 mg PO BID PRN PRN Reason: CONSTIPATION Heparin Sodium (Porcine) (Heparin -) 5,000 unit SQ BID [facility] Last Admin: 08/17/18 11:48 Dose: Not Given Sevelamer Carbonate (Renvela -) 1,600 mg PO TIDCM [facility] Last Admin: 08/17/18 11:48 Dose: 1,600 mg Trazodone HCl (Desyrel -) 50 mg PO HS [facility] Last Admin: 08/16/18 21:47 Dose: 50 mg Valsartan (Diovan -) 160 mg PO DAILY [facility] Last Admin: 08/17/18 11:48 Dose: 160 mg - Objective Vital Signs: Vital Signs Temperature 97.9 F 08/17/18 13:34 Pulse Rate 104 H 08/17/18 14:45 Respiratory Rate 18 08/17/18 14:45 Blood Pressure 93/59 L 08/17/18 14:45 O2 Sat by Pulse Oximetry (%) 96 08/17/18 09:00 Constitutional: Yes: Calm Eyes: Yes: Conjunctiva Clear HENT: Yes: Atraumatic Cardiovascular: Yes: S1, S2 Respiratory: Yes: CTA Bilaterally Gastrointestinal: Yes: Soft, Other (pd cath) Genitourinary: Yes: WNL Musculoskeletal: Yes: WNL Edema: No Neurological: Yes: Oriented Psychiatric: Yes: Oriented Labs: CBC, BMP 08/17/18 06:10 INR, PTT INR 1.15 (0.83-1.09) H 08/17/18 12:10 Problem List - Problems (1) Ascites Code(s): R18.8 - OTHER ASCITES Qualifiers: Ascites type: other type Qualified Code(s): R18.8 - Other ascites (2) ESRD (end stage renal disease) on dialysis Code(s): N18.6 - END STAGE RENAL DISEASE; Z99.2 - DEPENDENCE ON RENAL DIALYSIS (3) Diabetes Code(s): E11.9 - TYPE 2 DIABETES MELLITUS WITHOUT COMPLICATIONS Qualifiers: Diabetes mellitus type: type 2 Diabetes mellitus shelter insulin use: with shelter use Diabetes mellitus complication status: without complication Qualified Code(s): E11.9 - Type 2 diabetes mellitus without complications; Z79.4 - penitentiary (current) use of insulin (4) Abnormal liver CT Code(s): R93.2 - ABNORMAL FINDINGS ON DX IMAGING OF LIVER AND BILIARY TRACT Assessment/Plan Current Medications Generic Name Dose Route Start Last Admin Trade Name Freq PRN Reason Stop Dose Admin Albumin Human 12.5 gm 08/17/18 15:20 08/17/18 15:27 Albumin Human 25% IVPB 12.5 gm Q30M PRN Administration HYPOTENSION Docusate Sodium 100 mg 08/16/18 13:34 Colace - PO BID PRN CONSTIPATION Heparin Sodium (Porcine) 5,000 unit 08/16/18 22:00 08/17/18 11:48 Heparin - SQ Not Given BID KRISTEN Sevelamer Carbonate 1,600 mg 08/16/18 17:30 08/17/18 11:48 Renvela - PO 1,600 mg TIDCM KRISTEN Administration Trazodone HCl 50 mg 08/16/18 22:00 08/16/18 21:47 Desyrel - PO 50 mg HS KRISTEN Administration Valsartan 160 mg 08/17/18 10:00 08/17/18 11:48 Diovan - PO 160 mg DAILY KRISTEN Administration Impression 1. ESRD 2. DM 3. ascites 4. HTN 5. obesity 6. anemia 7. iron deficiency 8. CHF 9. anemia 10. non compliance 11. liver mass 12. hx GI bleed 13. diabetic nephropathy Plan - HD today - will give albumin with HD - surgery to remove PD catheter - oncology eval - GI follow up - liver mass workup in progress - will follow Dr Quezada
--- NOTE | 2018-08-17 16:31 | CONSULT ---
Consult Consult Specialty:: Heme/Onc Referred by:: Dr. Carlton Reason for Consultation:: Liver Mass - History of Present Illness Chief Complaint: bloating History of Present Illness: 53M history of ESRD on HD DM HTN liver mass, anemia, presents to the hospital with complainst of abdominal pain and bloating. Patient states he has not completed his outpatient work up for his liver mass. Patient has a history of non compliance. Known to me from the [facility]. Patient came to see me for initial visit then started seeing other resident providers in the clinic. Patient currently feels well and denies nausea vomiting fever chills chest pain or SOB. He states he has been losing weight but it is intentional. - Past Medical History Cardio/Vascular: Yes: HTN, Hyperlipdemia Gastrointestinal: Yes: GI Bleed (s/p EGD 01/26: ) Renal/: Yes: Renal Failure, Renal Inusuff, Hemodialysis Endocrine: Yes: Diabetes Mellitus - Past Surgical History Past Surgical History: Yes: AV Fistula/Graft Additional Surgical History: PD dialysis catheter, eye surgery - Alcohol/Substance Use Hx Alcohol Use: No History of Substance Use: reports: None - Smoking History Smoking history: Unknown if ever smoked Have you smoked in the past 12 months: No Aproximately how many cigarettes per day: 0 - Social History ADL: Independent History of Recent Travel: No Home Medications - Allergies Allergies/Adverse Reactions: Allergies Allergy/AdvReac Type Severity Reaction Status Date / Time Penicillins Allergy Intermediate Verified 08/16/18 08:54 - Home Medications Home Medications: Ambulatory Orders Sevelamer Carbonate [Renvela -] 1,600 mg PO TID 01/27/18 traZODone HCL [Trazodone HCl] 50 mg PO HS 04/07/18 Pantoprazole Sodium 40 mg PO BID 05/04/18 Docusate Sodium [Stool Softener] 100 mg PO ASDIR 08/16/18 Simethicone [Gas-X] 125 mg PO ASDIR 08/16/18 Carvedilol 3.125 mg PO 08/18/18 Furosemide [Lasix] 40 mg PO 08/18/18 Family Disease History - Family Disease History Family Disease History: Diabetes: Brother (2, 1 with CVA, 1 healthy), Heart Disease: Father (: 62: CHF), Other: Father, Mother (Alive: wasnt clear as to her med. problems), Brother Other Family History: No family history of cancer Review of Systems - Review of Systems Constitutional: reports: No Symptoms Eyes: reports: No Symptoms HENT: reports: No Symptoms Neck: reports: No Symptoms Respiratory: reports: No Symptoms Gastrointestinal: reports: Abdominal Pain, Bloating Genitourinary: reports: No Symptoms Musculoskeletal: reports: No Symptoms Neurological: reports: No Symptoms Endocrine: reports: No Symptoms Physical Exam Vital Signs: Vital Signs Temperature 97.9 F 08/17/18 13:34 Pulse Rate 104 H 08/17/18 14:45 Respiratory Rate 18 08/17/18 14:45 Blood Pressure 93/59 L 08/17/18 14:45 O2 Sat by Pulse Oximetry (%) 96 08/17/18 09:00 Constitutional: Yes: No Distress, Calm Eyes: Yes: EOM Intact HENT: Yes: Atraumatic, Normocephalic Neck: Yes: Supple, Trachea Midline Cardiovascular: Yes: Regular Rate and Rhythm Respiratory: Yes: Regular, CTA Bilaterally Gastrointestinal: Yes: Soft, Other (PD catheter in place). No: Tenderness Edema: No Labs: CBC, BMP 08/17/18 06:10 Imaging - Results Cat Scan: Report Reviewed, Image Reviewed (from 08/14/2018) Assessment/Plan 53M with multiple medical problems presents to the hospital for abdominal pain and bloating. Problem List: Liver mass possible Ca ESRD on HD HTN Ascites Anemia Obesity CHF diabetic nephropathy history of GI bleed non compliance iron deficiency anemia Plan: CT scan of the Abdomen and pelvis noted from 08/14/2018 as well as US from 2017 Patient should have a triple phase CT scan to evaluate his liver mass. This should be coordinated with his dialysis. Patient should keep his PD catheter in for now so it is easier to drain his ascites and then he can have a liver biopsy once ascites is drained. Patient has not been able to complete his work up at [facility] for liver mass work up. Strong concern for HCC per GI Patient will need a liver biopsy for definitive tissue diagnosis Will follow
--- NOTE | 2018-08-17 17:35 | PN ---
Teaching Attending Note Name of Resident: Mehdi Becerra ATTENDING PHYSICIAN STATEMENT I saw and evaluated the patient. I reviewed the resident's note and discussed the case with the resident. I agree with the resident's findings and plan as documented. SUBJECTIVE: Patient seen and examined Discussed with Dr. Martínez. 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 Masses not appreciated on sono and patient not a candidate for gadolinium. Had triphasic CT scan(prior to dialysis) with liver masses appreciated in right lobe .Will need to drain ascites as best as is feasible prior to planned liver biopsy. Will repeat coagulation studies. OBJECTIVE: ASSESSMENT AND PLAN:
[2018-08-17] MEDS: traZODone HCL 50 MG TABLET (FP) PO SCH (22:17)
[2018-08-18] MEDS: SEVELAMER CARBONATE 800 MG TAB (FP) PO SCH ×3 (09:00→17:30)
[2018-08-18] MEDS: HEPARIN NA (PORCINE) 5,000 UNITS/ML 1ML VIAL SQ SCH ×2 (09:00→21:33)
--- NOTE | 2018-08-18 09:45 | PN ---
Progress Note, Physician Chief Complaint: AWAKE ALERT FEELS GOOD DENIES CP/SOB - Current Medication List Current Medications: Active Medications Heparin Sodium (Porcine) (Heparin -) 5,000 unit SQ BID [facility] Last Admin: 08/18/18 09:00 Dose: Not Given Polyethylene Glycol (Miralax (For Daily Use) -) 17 gm PO DAILY [facility] Senna (Senna -) 1 tab PO BID [facility] Sevelamer Carbonate (Renvela -) 1,600 mg PO TIDCM [facility] Last Admin: 08/18/18 09:00 Dose: 1,600 mg Trazodone HCl (Desyrel -) 50 mg PO HS [facility] Last Admin: 08/17/18 22:17 Dose: 50 mg Valsartan (Diovan -) 160 mg PO DAILY [facility] Last Admin: 08/17/18 11:48 Dose: 160 mg - Objective Vital Signs: Vital Signs Temperature 98.7 F 08/18/18 06:00 Pulse Rate 112 H 08/18/18 06:00 Respiratory Rate 20 08/18/18 06:00 Blood Pressure 139/77 08/18/18 06:00 O2 Sat by Pulse Oximetry (%) 96 08/18/18 01:00 Constitutional: Yes: No Distress Eyes: Yes: Other HENT: Yes: WNL Neck: Yes: WNL Cardiovascular: Yes: Regular Rate and Rhythm Respiratory: Yes: WNL Gastrointestinal: Yes: Abdomen, Obese, Ascites Genitourinary: Yes: WNL Musculoskeletal: Yes: WNL Extremities: Yes: WNL Edema: Yes Integumentary: Yes: WNL Wound/Incision: Yes: Clean/Dry Neurological: Yes: Pre-Existing Deficit ...Motor Strength: LLE, RLE Psychiatric: Yes: WNL Labs: CBC, BMP 08/17/18 06:10 INR, PTT INR 1.15 (0.83-1.09) H 08/17/18 12:10 Problem List - Problems (1) Ascites Code(s): R18.8 - OTHER ASCITES Qualifiers: Ascites type: other type Qualified Code(s): R18.8 - Other ascites (2) ESRD (end stage renal disease) on dialysis Code(s): N18.6 - END STAGE RENAL DISEASE; Z99.2 - DEPENDENCE ON RENAL DIALYSIS (3) Diabetes Code(s): E11.9 - TYPE 2 DIABETES MELLITUS WITHOUT COMPLICATIONS Qualifiers: Diabetes mellitus type: type 2 Diabetes mellitus fci insulin use: with fci use Diabetes mellitus complication status: without complication Qualified Code(s): E11.9 - Type 2 diabetes mellitus without complications; Z79.4 - sole assessor (current) use of insulin (4) Dialysis patient Code(s): Z99.2 - DEPENDENCE ON RENAL DIALYSIS (5) History of duodenal ulcer Code(s): Z87.19 - PERSONAL HISTORY OF OTHER DISEASES OF THE DIGESTIVE SYSTEM (6) Hypertensive cardiomegaly with heart failure Code(s): I11.0 - HYPERTENSIVE HEART DISEASE WITH HEART FAILURE Assessment/Plan D/W VASC SX DR MARTIN TO REMOVE PD PORT FROM ABDOMEN ON THURSDAY, PATIENT IS MEDICALLY CLEARED FOR PROCEDURE. PATIENT TO HAVE DIALYSIS TODAY NEPHROLOGY F/U APPRECIATED NEEDS DIETARY CONSULT WITH LONG STANDING UNCONTROLLED DM AND HTN IN THE PAST WHICH ACCELERATED HIS RENAL NEPHROPATHY LIFESTYLE CHANGES AND PROPER MEDICAL F/U D/W PATIENT HE AGREES TO BE MORE ACCOUNTABLE FOR HIS PART IN BOTTOM SANDER TREATMENT OF HIS DISEASE. BGM CHECKS [facility] PODIATRY CONSULT
[2018-08-18] MEDS: VALSARTAN 160 MG TABLET (UD) PO SCH (09:58)
[2018-08-18] MEDS: SENNOSIDES 8.6MG TABLET (FP) PO SCH ×2 (10:47→21:32)
[2018-08-18] MEDS: POLYETHYLENE GLYCOL 3350 119 GM BTL PO SCH (10:47)
[2018-08-18] MEDS ORDERED: SODIUM CHLORIDE 250 ML IV PRN (11:43)
--- NOTE | 2018-08-18 11:43 | PN ---
Progress Note, Physician History of Present Illness: Pt seen and examined at bedside. He is awake and alert. He denies shortness of breath. - Current Medication List Current Medications: Active Medications Heparin Sodium (Porcine) (Heparin -) 5,000 unit SQ BID [facility] Last Admin: 08/18/18 09:00 Dose: Not Given Polyethylene Glycol (Miralax (For Daily Use) -) 17 gm PO DAILY [facility] Last Admin: 08/18/18 10:47 Dose: 17 gm Senna (Senna -) 1 tab PO BID [facility] Last Admin: 08/18/18 10:47 Dose: 1 tab Sevelamer Carbonate (Renvela -) 1,600 mg PO TIDCM [facility] Last Admin: 08/18/18 09:00 Dose: 1,600 mg Trazodone HCl (Desyrel -) 50 mg PO HS [facility] Last Admin: 08/17/18 22:17 Dose: 50 mg Valsartan (Diovan -) 160 mg PO DAILY [facility] Last Admin: 08/18/18 09:58 Dose: Not Given - Objective Vital Signs: Vital Signs Temperature 98.7 F 08/18/18 06:00 Pulse Rate 121 H 08/18/18 10:00 Respiratory Rate 20 08/18/18 10:00 Blood Pressure 101/67 08/18/18 10:00 O2 Sat by Pulse Oximetry (%) 96 08/18/18 09:00 Constitutional: Yes: Calm Eyes: Yes: Conjunctiva Clear HENT: Yes: Atraumatic Neck: Yes: Supple Cardiovascular: Yes: S1, S2 Respiratory: Yes: CTA Bilaterally Gastrointestinal: Yes: Soft, Ascites Genitourinary: Yes: WNL Musculoskeletal: Yes: WNL Edema: No Neurological: Yes: Oriented Psychiatric: Yes: Oriented Labs: CBC, BMP 08/17/18 06:10 INR, PTT INR 1.15 (0.83-1.09) H 08/17/18 12:10 Problem List - Problems (1) Ascites Code(s): R18.8 - OTHER ASCITES Qualifiers: Ascites type: other type Qualified Code(s): R18.8 - Other ascites (2) ESRD (end stage renal disease) on dialysis Code(s): N18.6 - END STAGE RENAL DISEASE; Z99.2 - DEPENDENCE ON RENAL DIALYSIS (3) Diabetes Code(s): E11.9 - TYPE 2 DIABETES MELLITUS WITHOUT COMPLICATIONS Qualifiers: Diabetes mellitus type: type 2 Diabetes mellitus fpc insulin use: with rn long term care use Diabetes mellitus complication status: without complication Qualified Code(s): E11.9 - Type 2 diabetes mellitus without complications; Z79.4 - FPC (current) use of insulin (4) Abnormal liver CT Code(s): R93.2 - ABNORMAL FINDINGS ON DX IMAGING OF LIVER AND BILIARY TRACT Assessment/Plan Current Medications Generic Name Dose Route Start Last Admin Trade Name María PRN Reason Stop Dose Admin Heparin Sodium (Porcine) 5,000 unit 08/16/18 22:00 08/18/18 09:00 Heparin - SQ Not Given BID [facility] Polyethylene Glycol 17 gm 08/18/18 10:00 08/18/18 10:47 Miralax (For Daily Use) - PO 17 gm DAILY [facility] Administration Senna 1 tab 08/18/18 10:00 08/18/18 10:47 Senna - PO 1 tab BID [facility] Administration Sevelamer Carbonate 1,600 mg 08/16/18 17:30 08/18/18 09:00 Renvela - PO 1,600 mg TIDCM [facility] Administration Trazodone HCl 50 mg 08/16/18 22:00 08/17/18 22:17 Desyrel - PO 50 mg HS [facility] Administration Valsartan 160 mg 08/17/18 10:00 08/18/18 09:58 Diovan - PO Not Given DAILY [facility] Impression 1. ESRD 2. DM 3. ascites 4. HTN 5. obesity 6. anemia 7. iron deficiency 8. CHF 9. anemia 10. non compliance 11. liver mass 12. hx GI bleed 13. diabetic nephropathy Plan - will arrange for HD in am - spoke to vascular to have PD catheter removed - discussed with oncology last night - GI follow up - liver mass workup in progress - will follow Dr Quezada
--- NOTE | 2018-08-18 13:15 | ECHO ---
Name: VALLE, JUDITH Exam:Adult Echocardiogram Study Date: 08/18/2018 10:39 AM Age: 53 yrs Reason For Study: LVEF Height: 68 in Weight: 199 lb BSA: 2.0 m2 MMode/2D Measurements & Calculations IVSd: 0.85 cm Ao root diam: 3.6 cm LVIDd: 4.3 cm LA dimension: 4.1 cm LVIDs: 2.8 cm LVPWd: 0.86 cm EDV(Teich): 85.1 ml ESV(Teich): 29.8 ml Doppler Measurements & Calculations MV E max kenton: 40.5 cm/sec Ao V2 max: 107.4 cm/sec MV A max kenton: 87.9 cm/sec Ao max P.6 mmHg MV E/A: 0.46 LV V1 max P.0 mmHg Med Peak E' Kenton: 4.7 cm/sec LV V1 max: 100.2 cm/sec Med E/e': 8.7 Lat Peak E' Kenton: 8.3 cm/sec Lat E/e': 4.9 Procedure The study was technically difficult with many images being suboptimal in quality. Left Ventricle The left ventricular size, thickness and function are normal. The left ventricular ejection fraction is normal. E/A reversal consistent with but not diagnostic of poor LV compliance. Regional wall motion abnormalities cannot be excluded due to limited visualization. Right Ventricle The right ventricle is normal in size and function. Atria The left atrium is mildly dilated. The right atrium is mildly dilated. Mitral Valve The mitral valve is not well visualized. There is no mitral valve stenosis. There is trace to mild mi tral regurgitation. Tricuspid Valve The tricuspid valve is not well visualized. There is no tricuspid stenosis. There was insufficient TR detected to calculate RV systolic pressure. Aortic Valve The aortic valve is not well visualized. No hemodynamically significant valvular aortic stenosis. No aortic regurgitation is present. Pulmonic Valve The pulmonic valve is not well visualized. Great Vessels The aortic root is normal size. Pericardium/Pleura There is no pericardial effusion. Interpretation Summary The study was technically difficult with many images being suboptimal in quality. The left ventricular size, thickness and function are normal The left ventricular ejection fraction is normal. E/A reversal consistent with but not diagnostic of poor LV compliance Regional wall motion abnormalities cannot be excluded due to limited visualization. The left atrium is mildly dilated. The right atrium is mildly dilated. There is trace to mild mitral regurgitation. The tricuspid valve is not well visualized. There was insufficient TR detected to calculate RV systolic pressure. MD Devin Cardona 08/18/2018 01:14 PM
--- NOTE | 2018-08-18 13:48 | SPA.PREOP ---
- PRE-OP NOTE Dx: ESRD Planned Procedure: Removal of peritoneal dialysis catheter Surgeon: Dr Alex Mike Consent: Obtained after surgeon explained all risks, benefits and alternatives. Opportunity for questions. Patient had none. Understood and signed without reservation. Last Vital Signs Temp Pulse Resp BP Pulse Ox 98.7 F 121 H 20 101/67 96 08/18/18 06:00 08/18/18 10:00 08/18/18 10:00 08/18/18 10:00 08/18/18 09:00 Lab Results WBC 8.4 K/mm3 (4.0-10.0) 08/17/18 06:10 RBC 2.89 M/mm3 (4.00-5.60) L 08/17/18 06:10 Hgb 9.3 GM/dL (11.7-16.9) L 08/17/18 06:10 Hct 29.4 % (35.4-49) L 08/17/18 06:10 MCV 101.7 fl (80-96) H 08/17/18 06:10 MCHC 31.7 g/dl (32.0-35.9) L 08/17/18 06:10 RDW 19.4 % (11.9-15.9) H 08/17/18 06:10 Plt Count 316 K/MM3 (134-434) 08/17/18 06:10 Sodium 131 mmol/L (136-145) L 08/17/18 06:10 Potassium 4.0 mmol/L (3.5-5.1) 08/17/18 06:10 Chloride 99 mmol/L (98-107) 08/17/18 06:10 Carbon Dioxide 19 mmol/L (21-32) L 08/17/18 06:10 Anion Gap 12 MMOL/L (8-16) 08/17/18 06:10 BUN 60 mg/dL (7-18) H 08/17/18 06:10 Creatinine 9.5 mg/dL (0.55-1.3) H* 08/17/18 06:10 Random Glucose 86 mg/dL (74-106) 08/17/18 06:10 Calcium 7.4 mg/dL (8.5-10.1) L 08/17/18 06:10 INR 1.15 (0.83-1.09) H 08/17/18 12:10 A/P: 53M history of ESRD on HD DM HTN liver mass, anemia, admitted with abdominal mass and bloating, found to have liver masses and elevated AFP with concern for Hepatocellular carcinoma. Vascular consulted for removal of PD catheter. Plan for OR tomorrow 08/19. -NPO after midnight -AM labs (cbc, chem, coags) -Hold heparin sq in AM -Consent per attending - IMAGING X-ray: Report Reviewed (08/08 no acute pathology) EKG: Report Reviewed (08/16 sinus tachy, LA fasicular block) Other: Other (echo 08/18: EF wnl, remainder wnl, limited study) - ASSESSMENT/PLAN 1. Make NPO after midnight except po meds 2. GI/DVT PPX 3. Medical optimization / clearance
[2018-08-18] MEDS: LOSARTAN POTASSIUM 50 MG TABLET (FP) PO SCH (14:49)
--- NOTE | 2018-08-18 15:29 | PN ---
Progress Note, Physician History of Present Illness: seen and examined today in [facility]. no overnight events. no new complaints. - Current Medication List Current Medications: Active Medications Albumin Human (Albumin Human 25%) 12.5 gm IVPB Q30M [facility] Epoetin Dylon (Epogen -) 6,000 unit IVPUSH ONCE ONE Stop: 08/19/18 11:44 Heparin Sodium (Porcine) (Heparin -) 5,000 unit SQ BID [facility] Last Admin: 08/18/18 09:00 Dose: Not Given Sodium Chloride (Normal Saline -) 250 mls @ 3,000 mls/hr IV PRN PRN PRN Reason: Hypotension during Dialysis Stop: 08/19/18 11:43 Losartan Potassium (Cozaar -) 50 mg PO DAILY [facility] Last Admin: 08/18/18 14:49 Dose: 50 mg Polyethylene Glycol (Miralax (For Daily Use) -) 17 gm PO DAILY [facility] Last Admin: 08/18/18 10:47 Dose: 17 gm Senna (Senna -) 1 tab PO BID [facility] Last Admin: 08/18/18 10:47 Dose: 1 tab Sevelamer Carbonate (Renvela -) 1,600 mg PO TIDCM [facility] Last Admin: 08/18/18 11:42 Dose: 1,600 mg Trazodone HCl (Desyrel -) 50 mg PO HS [facility] Last Admin: 08/17/18 22:17 Dose: 50 mg - Objective Vital Signs: Vital Signs Temperature 98.2 F 08/18/18 13:57 Pulse Rate 111 H 08/18/18 13:57 Respiratory Rate 20 08/18/18 13:57 Blood Pressure 102/72 08/18/18 13:57 O2 Sat by Pulse Oximetry (%) 96 08/18/18 09:00 Constitutional: Yes: No Distress, Calm Eyes: Yes: Conjunctiva Clear, EOM Intact HENT: Yes: Atraumatic, Normocephalic Neck: Yes: Supple, Trachea Midline Cardiovascular: Yes: Regular Rate and Rhythm, S1, S2. No: Bradycardia, Tachycardia, Pulse Irregular, Bruit, JVD, Gallop, Murmur, Rub, S3, S4, Varicosities Respiratory: Yes: Regular. No: Rales, Rhonchi, SOB, Wheezes Gastrointestinal: Yes: Normal Bowel Sounds, Distention. No: Tenderness Musculoskeletal: Yes: WNL Extremities: Yes: WNL Edema: No Peripheral Pulses WNL: Yes Peripheral Pulses: Left Doralis Pedis: 2+, Right Dorsalis Pedis: 2+ Neurological: Yes: Alert, Oriented Psychiatric: Yes: Alert, Oriented Labs: CBC, BMP 08/17/18 06:10 INR, PTT INR 1.15 (0.83-1.09) H 08/17/18 12:10 - ....Imaging Chest X-ray: Report Reviewed, Image Reviewed EKG: Report Reviewed, Image Reviewed Other: Report Reviewed, Image Reviewed Assessment/Plan 53y M hx of dm, htn, ESRD (T, , , last dialysis ), had been on PD during the summer but switched back to HD, presents with complaint of 5-6 days of abdominal distension. CT showed significant ascites and liver abnormality. Pt is feeling increased distension/bloated. Pt did an enema last night and some enemas thinking it may be due to constipation, had a small soft BM this morning that didnt change his distension. Pt notes he has not eaten much the past few days because he thought it would make him more bloated. There is no chest pain or dyspnea. No edema. Significant ascites and possible liver pathology on CT scan. -GI and Onc evaluating -Echocardiogram 08/18/18 showed normal LV and RV size and systolic function, mild MR, insufficient TR, no pericardial effusion -ascites does not appear cardiac related -BP is adequately controlled No additional inpatient cardiac work up is needed at this time. Please call with any additional questions.
--- NOTE | 2018-08-18 15:51 | PATH ---
Cytology Non-Gynecological Report Patient Name: JUDITH VALLE [facility]. Rec. #: [id number] /Age/Gender: 1965 (Age: 53) / M Account: [id number] Location: [facility] MED/SURG Taken: 08/17/2018 Received: 08/17/2018 Reported: 08/18/2018 Physicians: Martín Carlton M.D. Specimen(s) Received A: PERITONEAL FLUID RECEIVED IN 50% ALCOHOL B: PERITONEAL FLUID RECEIVED FRESH Clinical History Ascites Final Diagnosis ABDOMINAL FLUID, PARACENTESIS: SATISFACTORY FOR EVALUATION NEGATIVE FOR MALIGNANT CELLS. MESOTHELIAL CELLS, MACROPHAGES AND RARE LYMPHOCYTES PRESENT. Electronically Signed Aris Colon M.D. Gross Description A. Approximately 50cc of yellow fluid received fixed in 50% alcohol. One slide and one cellblock prepared. B. Approximately 1000cc of fluid brown in color and received fresh. One slide 08/18/2018 and one cellblock prepared.
[2018-08-18 16:00] VITALS: BMI 31.7
[2018-08-18] MEDS ORDERED: MAG HYDROX/AL HYDROX/SIMETH 30 ML UNIT-DOSE CUP PO ONE (16:30)
--- NOTE | 2018-08-18 18:59 | PN ---
GI Progress Note Subjective: No acute events No abdominal pain Ascites analysis incomplete as of yet however not suggestive of SBP - Objective Vital Signs: Vital Signs Temperature 98.2 F 08/18/18 13:57 Pulse Rate 111 H 08/18/18 13:57 Respiratory Rate 20 08/18/18 17:00 Blood Pressure 102/72 08/18/18 13:57 O2 Sat by Pulse Oximetry (%) 96 08/18/18 17:00 Constitutional: Calm Cardiovascular: Yes: Tachycardia Respiratory: Yes: CTA Bilaterally Gastrointestinal Inspection: Yes: Ascites, Distention ...Auscultate: Yes: Normoactive Bowel Sounds ...Palpate: Yes: Soft. No: Tenderness Edema: No (Trace b/l LE edema) Neurological: Yes: Alert Labs: CBC, BMP 08/17/18 06:10 INR, PTT INR 1.15 (0.83-1.09) H 08/17/18 12:10 Hepatic Panel Total Bilirubin 1.0 mg/dL (0.2-1) 08/17/18 06:10 Direct Bilirubin 0.7 mg/dL (0.0-0.2) H 08/17/18 06:10 AST 153 U/L (15-37) H 08/17/18 06:10 ALT 98 U/L (13-61) H 08/17/18 06:10 Alkaline Phosphatase 1294 U/L (45-117) H 08/17/18 06:10 Albumin 2.0 g/dl (3.4-5.0) L 08/17/18 06:10 Problem List - Problems (1) Hepatocellular carcinoma Assessment/Plan: Suspected given marked AFP elevation To review CT scan prior to committing to liver biopsy. If images are suggestive of HCC, could consider forgoing liver biopsy Oncology following Code(s): C22.0 - LIVER CELL CARCINOMA
--- NOTE | 2018-08-18 19:15 | PN ---
Progress Note (short form) - Note Progress Note: Patient seen and examined Discussed with Dr Beavers In view of the significant elevation of the AFP , if the triphasic CT scan is consistent of HCC, might defer on liver biopsy if patient is comfortable with this. Last Vital Signs Temp Pulse Resp BP Pulse Ox 97.9 F 110 H 20 98/72 96 08/18/18 18:55 08/18/18 18:55 08/18/18 18:55 08/18/18 18:55 08/18/18 17:00 Cor: RSR, No murmurs, No gallops Lungs: Clear to P&A Abd: distende; abdominal masses , somewhat more tense Ext:No significant edema Skin: No rashes, Integument intact CBC, BMP 08/17/18 06:10 Current Medications Generic Name Dose Route Start Last Admin Trade Name Freq PRN Reason Stop Dose Admin Albumin Human 12.5 gm 08/19/18 11:45 Albumin Human 25% IVPB Q30M [facility] Epoetin Dylon 6,000 unit 08/19/18 11:43 Epogen - IVPUSH 08/19/18 11:44 ONCE ONE Heparin Sodium (Porcine) 5,000 unit 08/16/18 22:00 08/18/18 09:00 Heparin - SQ Not Given BID [facility] Sodium Chloride 250 mls @ 3,000 mls/hr 08/18/18 11:43 Normal Saline - IV 08/19/18 11:43 PRN PRN Hypotension during Dialysis Losartan Potassium 50 mg 08/18/18 14:45 08/18/18 14:49 Cozaar - PO 50 mg DAILY [facility] Administration Polyethylene Glycol 17 gm 08/18/18 10:00 08/18/18 10:47 Miralax (For Daily Use) - PO 17 gm DAILY [facility] Administration Senna 1 tab 08/18/18 10:00 08/18/18 10:47 Senna - PO 1 tab BID [facility] Administration Sevelamer Carbonate 1,600 mg 08/16/18 17:30 08/18/18 17:30 Renvela - PO 1,600 mg TIDCM [facility] Administration Trazodone HCl 50 mg 08/16/18 22:00 08/17/18 22:17 Desyrel - PO 50 mg HS [facility] Administration Impression: Likely HCC Pending review of CT and comfort level of patient , to decide about need for tissue with liver biopsy.
--- NOTE | 2018-08-18 19:22 | CONSULT ---
Consult Consult Specialty:: Podiatry Reason for Consultation:: Tender Onychomycosis - History of Present Illness Chief Complaint: Painful elongated thickened toe nails History of Present Illness: onychomycosis - Past Medical History Cardio/Vascular: Yes: HTN, Hyperlipdemia Gastrointestinal: Yes: GI Bleed (s/p EGD 01/26: ) Renal/: Yes: Renal Failure, Renal Inusuff, Hemodialysis Endocrine: Yes: Diabetes Mellitus - Past Surgical History Past Surgical History: Yes: AV Fistula/Graft Additional Surgical History: PD dialysis catheter, eye surgery - Alcohol/Substance Use Hx Alcohol Use: No History of Substance Use: reports: None - Smoking History Smoking history: Unknown if ever smoked Have you smoked in the past 12 months: No Aproximately how many cigarettes per day: 0 - Social History ADL: Independent History of Recent Travel: No Home Medications - Allergies Allergies/Adverse Reactions: Allergies Allergy/AdvReac Type Severity Reaction Status Date / Time Penicillins Allergy Intermediate Verified 08/16/18 08:54 - Home Medications Home Medications: Ambulatory Orders Sevelamer Carbonate [Renvela -] 1,600 mg PO TID 01/27/18 traZODone HCL [Trazodone HCl] 50 mg PO HS 04/07/18 Pantoprazole Sodium 40 mg PO BID 05/04/18 Docusate Sodium [Stool Softener] 100 mg PO ASDIR 08/16/18 Simethicone [Gas-X] 125 mg PO ASDIR 08/16/18 Carvedilol 3.125 mg PO 08/18/18 Furosemide [Lasix] 40 mg PO 08/18/18 Family Disease History - Family Disease History Family Disease History: Diabetes: Brother (2, 1 with CVA, 1 healthy), Heart Disease: Father (: 62: CHF), Other: Father, Mother (Alive: wasnt clear as to her med. problems), Brother Other Family History: No family history of cancer Physical Exam Vital Signs: Vital Signs Temperature 97.9 F 08/18/18 18:55 Pulse Rate 110 H 08/18/18 18:55 Respiratory Rate 20 08/18/18 18:55 Blood Pressure 98/72 08/18/18 18:55 O2 Sat by Pulse Oximetry (%) 96 08/18/18 17:00 Integumentary: Yes: Other (onychomycosis, +tender, +hypertrophic nails x 10) Labs: CBC, BMP 08/17/18 06:10 Assessment/Plan onychomycosis pain will debride nails x10. Foot care [id number]. Diabetic foot care discussed.
[2018-08-18] MEDS: traZODone HCL 50 MG TABLET (FP) PO SCH (21:32)
[2018-08-19 00:11] LABS: HBSAG SCREEN Negative (Negative); HEP A AB, IGM Negative (Negative); HEP B CORE AB, TOT Negative (Negative)
[2018-08-19] MEDS: SENNOSIDES 8.6MG TABLET (FP) PO SCH ×2 (10:11→22:43)
[2018-08-19] MEDS: SEVELAMER CARBONATE 800 MG TAB (FP) PO SCH ×3 (10:11→18:05)
[2018-08-19] MEDS: POLYETHYLENE GLYCOL 3350 119 GM BTL PO SCH (10:11)
[2018-08-19] MEDS: LOSARTAN POTASSIUM 50 MG TABLET (FP) PO SCH (10:18)
--- NOTE | 2018-08-19 10:47 | PN ---
Progress Note, Physician Chief Complaint: AWAKE ALERT TRANSFERRING TO FOR REMOVAL OF PERITONEAL PORT - Current Medication List Current Medications: Active Medications Albumin Human (Albumin Human 25%) 12.5 gm IVPB Q30M [facility] Epoetin Dylon (Epogen -) 6,000 unit IVPUSH ONCE ONE Stop: 08/19/18 11:44 Heparin Sodium (Porcine) (Heparin -) 5,000 unit SQ BID [facility] Last Admin: 08/18/18 21:33 Dose: Not Given Sodium Chloride (Normal Saline -) 250 mls @ 3,000 mls/hr IV PRN PRN PRN Reason: Hypotension during Dialysis Stop: 08/19/18 11:43 Losartan Potassium (Cozaar -) 50 mg PO DAILY [facility] Last Admin: 08/19/18 10:18 Dose: 50 mg Polyethylene Glycol (Miralax (For Daily Use) -) 17 gm PO DAILY [facility] Last Admin: 08/19/18 10:11 Dose: Not Given Senna (Senna -) 1 tab PO BID [facility] Last Admin: 08/19/18 10:11 Dose: Not Given Sevelamer Carbonate (Renvela -) 1,600 mg PO TIDCM [facility] Last Admin: 08/19/18 10:11 Dose: Not Given Trazodone HCl (Desyrel -) 50 mg PO HS [facility] Last Admin: 08/18/18 21:32 Dose: 50 mg - Objective Vital Signs: Vital Signs Temperature 98.8 F 08/19/18 06:00 Pulse Rate 104 H 08/19/18 06:00 Respiratory Rate 20 08/19/18 06:00 Blood Pressure 112/77 08/19/18 06:00 O2 Sat by Pulse Oximetry (%) 96 08/19/18 01:00 Constitutional: Yes: Mild Distress Eyes: Yes: WNL HENT: Yes: WNL Neck: Yes: WNL Cardiovascular: Yes: WNL Respiratory: Yes: WNL Gastrointestinal: Yes: Ascites Genitourinary: Yes: WNL Musculoskeletal: Yes: WNL Extremities: Yes: WNL Edema: No Peripheral Pulses WNL: Yes Integumentary: Yes: WNL Wound/Incision: Yes: Clean/Dry Neurological: Yes: WNL ...Motor Strength: WNL Psychiatric: Yes: WNL Labs: CBC, BMP 08/17/18 06:10 INR, PTT INR 1.15 (0.83-1.09) H 08/17/18 12:10 Problem List - Problems (1) Ascites Code(s): R18.8 - OTHER ASCITES Qualifiers: Ascites type: other type Qualified Code(s): R18.8 - Other ascites (2) ESRD (end stage renal disease) on dialysis Code(s): N18.6 - END STAGE RENAL DISEASE; Z99.2 - DEPENDENCE ON RENAL DIALYSIS (3) Diabetes Code(s): E11.9 - TYPE 2 DIABETES MELLITUS WITHOUT COMPLICATIONS Qualifiers: Diabetes mellitus type: type 2 Diabetes mellitus fpc insulin use: with fpc use Diabetes mellitus complication status: without complication Qualified Code(s): E11.9 - Type 2 diabetes mellitus without complications; Z79.4 - terminal press operator (current) use of insulin (4) Dialysis patient Code(s): Z99.2 - DEPENDENCE ON RENAL DIALYSIS (5) History of duodenal ulcer Code(s): Z87.19 - PERSONAL HISTORY OF OTHER DISEASES OF THE DIGESTIVE SYSTEM (6) Hypertensive cardiomegaly with heart failure Code(s): I11.0 - HYPERTENSIVE HEART DISEASE WITH HEART FAILURE Assessment/Plan IR CAN NOT REMOVE PERITIONEAL DIALYSIS PORT SURGICAL EVAL CALLED ASCITES 5 LITERS REMOVED MONITOR LABS STARTED ON TOPROL XL 12.5MG DAILY RENAL EVAL HD
[2018-08-19 10:58] LABS: GLUCOSE,BODY FLUID 112 mg/dl; TOTAL PROTEIN BODY FLUID 2.9 g/dl
[2018-08-19 10:59] LABS: AMYLASE-BF 36
[2018-08-19] MEDS ORDERED: EPOETIN ALFA 3,000 UNIT/1 ML ML IVPUSH ONE (12:00)
[2018-08-19] MEDS: MORPHINE SULFATE 2 MG/ML VIAL IVPUSH PRN ×2 (14:17→22:43)
[2018-08-19 15:00] LABS: HEMATOCRIT 27.8 % (35.4-49); HEMOGLOBIN 9.1 GM/dL (11.7-16.9); MCH 33.3 pg (25.7-33.7); MCHC 32.9 g/dl (32.0-35.9); MEAN CELL VOLUME 101.1 fl (80-96); MEAN PLT VOLUME 9.1 fl (7.5-11.1); PLATELET COUNT 233 K/MM3 (134-434); RBC 2.75 M/mm3 (4.00-5.60); RDW 19.7 % (11.9-15.9); WHITE BLOOD COUNT 6.9 K/mm3 (4.0-10.0)
--- NOTE | 2018-08-19 15:33 | CONSULT ---
Consult Consult Specialty:: General Surgery Reason for Consultation:: retained foreign body - History of Present Illness Chief Complaint: part of peritoneal dialysis catheter History of Present Illness: 53yo male PMH DM, HTN, ESRD (T, , , last dialysis ), GIB, anemia, presents with complaint of 5-6 days of increasing abdominal distension. Pt was formerly evaluated in the ED 3 days ago where he got CT/US. Pt has awaiting fu with a liver specialist at [place] for a CT with contrast. Pt is feeling increased distension/bloated. Pt did an enema last night and some enemas thinking it may be due to constipation, had a small soft BM this morning that didnt change his distension. Pt notes he has not eaten much the past few days because he thought it would make him more bloated.patient recently at [facility] for a insect bite on his arm. Yesterday the intrapeitoneal portion of his peritoneal dialysis catheter was broke during removal. There is lower abdominal portion of the catheter. we were asked to assess and assist. - History Source History Provided By: Patient, Medical Record Limitations to Obtaining History: No Limitations - Past Medical History Cardio/Vascular: Yes: HTN, Hyperlipdemia Gastrointestinal: Yes: GI Bleed (s/p EGD 01/26: ) Renal/: Yes: Renal Failure, Renal Inusuff, Hemodialysis Endocrine: Yes: Diabetes Mellitus - Past Surgical History Past Surgical History: Yes: AV Fistula/Graft Additional Surgical History: PD dialysis catheter, eye surgery - Alcohol/Substance Use Hx Alcohol Use: No History of Substance Use: reports: None - Smoking History Smoking history: Unknown if ever smoked Have you smoked in the past 12 months: No Aproximately how many cigarettes per day: 0 - Social History ADL: Independent History of Recent Travel: No Home Medications - Allergies Allergies/Adverse Reactions: Allergies Allergy/AdvReac Type Severity Reaction Status Date / Time Penicillins Allergy Intermediate Verified 08/16/18 08:54 - Home Medications Home Medications: Ambulatory Orders Sevelamer Carbonate [Renvela -] 1,600 mg PO TID 01/27/18 traZODone HCL [Trazodone HCl] 50 mg PO HS 04/07/18 Pantoprazole Sodium 40 mg PO BID 05/04/18 Docusate Sodium [Stool Softener] 100 mg PO ASDIR 08/16/18 Simethicone [Gas-X] 125 mg PO ASDIR 08/16/18 Carvedilol 3.125 mg PO 08/18/18 Furosemide [Lasix] 40 mg PO 08/18/18 Family Disease History - Family Disease History Family Disease History: Diabetes: Brother (2, 1 with CVA, 1 healthy), Heart Disease: Father (: 62: CHF), Other: Father, Mother (Alive: wasnt clear as to her med. problems), Brother Other Family History: No family history of cancer Review of Systems - Review of Systems Constitutional: denies: Chills, Fever Eyes: denies: Blind Spots, Recent Change in Vision HENT: denies: Difficult Swallowing, Throat Pain, Toothache Neck: denies: Decreased ROM, Lumps Cardiovascular: denies: Chest Pain, Palpitations Respiratory: denies: Cough, SOB Gastrointestinal: reports: Bloating, Constipation. denies: Abdominal Pain Genitourinary: denies: Discharge, Dysuria Breasts: reports: No Symptoms Reported. denies: Pain Musculoskeletal: denies: Muscle Cramps, Muscle Weakness Integumentary: denies: Lump, Rash Neurological: denies: Syncope, Tremors Endocrine: denies: Unexplained Weight Gain, Unexplained Weight Loss Hematology/Lymphatic: denies: Easily Bruised, Excessive Bleeding Psychiatric: denies: Anxiety, Depression Physical Exam Vital Signs: Vital Signs Temperature 98.1 F 08/19/18 14:30 Pulse Rate 101 H 08/19/18 15:10 Respiratory Rate 19 08/19/18 15:10 Blood Pressure 100/59 L 08/19/18 15:10 O2 Sat by Pulse Oximetry (%) 96 08/19/18 01:00 Constitutional: Yes: No Distress, Calm Eyes: Yes: Conjunctiva Clear, EOM Intact HENT: Yes: Atraumatic, Normocephalic Neck: Yes: Supple, Trachea Midline Cardiovascular: Yes: Regular Rate and Rhythm, S1, S2 Respiratory: Yes: Regular, CTA Bilaterally Gastrointestinal: Yes: Normal Bowel Sounds, Soft, Ascites, Distention, Tenderness (incisional). No: Abdomen, Obese, Rectal Bleeding, Tenderness, Epigastrium, Tenderness, Rebound ...Rectal Exam: Yes: Deferred Renal/: No: CVA Tenderness - Left, CVA Tenderness - Right Musculoskeletal: No: Muscle Pain, Muscle Weakness Extremities: No: Cool, Cyanosis Edema: No Peripheral Pulses WNL: Yes Wound/Incision: Yes: Clean/Dry, Well Approximated, Sutures Intact. No: Draining Neurological: Yes: Alert, Oriented Psychiatric: Yes: Alert, Oriented Labs: CBC, BMP 08/19/18 14:45 Imaging - Results X-ray: Report Reviewed, Image Reviewed (portion of radioopaqe catheter lower abdomen) Cat Scan: Report Reviewed, Image Reviewed (lower abdominal catheter present in mildine) Problem List - Problems (1) Presence of peritoneal dialysis catheter Assessment/Plan: 53 yo male with cirrhosis and ascites with retained portion of peritoneal dialysis catheter NPO for OR OR for diagnostic laparoscopy, removal of foreign body Discussed with patient risks, benefits and alternatives of aforementioned procedure, including but not limited to bleeding, infection, injury to adjacent structures, leak or injury, intraabdominal abscess, incisional hernia, need for further procedures, ; alternatives include antibiotics, delayed or no surgery - risks of this include failure of nonoperative therapy, perforation, sepsis, recurrence, . Patient desires to proceed with operation - will take to OR for above. Informed consent signed for same. Thank you for the opportunity to participate in the care of this patient. Code(s): Z99.2 - DEPENDENCE ON RENAL DIALYSIS (2) Ascites Code(s): R18.8 - OTHER ASCITES Qualifiers: Ascites type: other type Qualified Code(s): R18.8 - Other ascites (3) ESRD (end stage renal disease) on dialysis Code(s): N18.6 - END STAGE RENAL DISEASE; Z99.2 - DEPENDENCE ON RENAL DIALYSIS (4) Hepatocellular carcinoma Code(s): C22.0 - LIVER CELL CARCINOMA (5) Diabetes Code(s): E11.9 - TYPE 2 DIABETES MELLITUS WITHOUT COMPLICATIONS Qualifiers: Diabetes mellitus type: type 2 Diabetes mellitus fpc insulin use: with terminal operations manager use Diabetes mellitus complication status: without complication Qualified Code(s): E11.9 - Type 2 diabetes mellitus without complications; Z79.4 - lobsterman (current) use of insulin
[2018-08-19 16:00] LABS: ANION GAP 13 MMOL/L (8-16); BLOOD UREA NITROGEN 56 mg/dL (7-18); CALCIUM 7.1 mg/dL (8.5-10.1); CHLORIDE 98 mmol/L (98-107); CO2 25 mmol/L (21-32); GLUCOSE,RANDOM 111 mg/dL (74-106); POTASSIUM 3.9 mmol/L (3.5-5.1); SODIUM 136 mmol/L (136-145)
[2018-08-19] MEDS: ALBUMIN HUMAN 25% 12.5 GM/50 ML VIAL IVPB SCH ×4 (16:01→17:40)
[2018-08-19 16:04] LABS: CREATININE 8.9 mg/dL (0.55-1.3)
--- NOTE | 2018-08-19 16:15 | PN ---
Progress Note, Physician History of Present Illness: Pt seen and examined at bedside. He is currently getting HD. PD catheter was removed today but part of it is still in his peritoneal cavity. He is going to OR tomorrow. - Current Medication List Current Medications: Active Medications Heparin Sodium (Porcine) (Heparin -) 5,000 unit SQ BID [facility] Last Admin: 08/18/18 21:33 Dose: Not Given Losartan Potassium (Cozaar -) 50 mg PO DAILY [facility] Last Admin: 08/19/18 10:18 Dose: 50 mg Metoprolol Succinate (Toprol Xl -) 12.5 mg PO DAILY [facility] Morphine Sulfate (Morphine Sulfate) 2 mg IVPUSH Q6H PRN PRN Reason: PAIN LEVEL 5-10 Last Admin: 08/19/18 14:17 Dose: 2 mg Polyethylene Glycol (Miralax (For Daily Use) -) 17 gm PO DAILY [facility] Last Admin: 08/19/18 10:11 Dose: Not Given Senna (Senna -) 1 tab PO BID [facility] Last Admin: 08/19/18 10:11 Dose: Not Given Sevelamer Carbonate (Renvela -) 1,600 mg PO TIDCM [facility] Last Admin: 08/19/18 10:11 Dose: Not Given Trazodone HCl (Desyrel -) 50 mg PO HS [facility] Last Admin: 08/18/18 21:32 Dose: 50 mg - Objective Vital Signs: Vital Signs Temperature 98.1 F 08/19/18 14:30 Pulse Rate 104 H 08/19/18 15:40 Respiratory Rate 18 08/19/18 15:40 Blood Pressure 107/77 08/19/18 15:40 O2 Sat by Pulse Oximetry (%) 96 08/19/18 01:00 Constitutional: Yes: Calm Eyes: Yes: Conjunctiva Clear HENT: Yes: Atraumatic Cardiovascular: Yes: S1, S2 Respiratory: Yes: CTA Bilaterally Gastrointestinal: Yes: Normal Bowel Sounds, Soft Genitourinary: Yes: WNL Musculoskeletal: Yes: WNL Edema: No Neurological: Yes: Oriented Psychiatric: Yes: Oriented Labs: CBC, BMP 08/19/18 14:45 08/19/18 14:45 INR, PTT INR 1.15 (0.83-1.09) H 08/17/18 12:10 Problem List - Problems (1) Ascites Code(s): R18.8 - OTHER ASCITES Qualifiers: Ascites type: other type Qualified Code(s): R18.8 - Other ascites (2) ESRD (end stage renal disease) on dialysis Code(s): N18.6 - END STAGE RENAL DISEASE; Z99.2 - DEPENDENCE ON RENAL DIALYSIS (3) Diabetes Code(s): E11.9 - TYPE 2 DIABETES MELLITUS WITHOUT COMPLICATIONS Qualifiers: Diabetes mellitus type: type 2 Diabetes mellitus chcf insulin use: with manager fitness use Diabetes mellitus complication status: without complication Qualified Code(s): E11.9 - Type 2 diabetes mellitus without complications; Z79.4 - end finder forming department (current) use of insulin (4) Abnormal liver CT Code(s): R93.2 - ABNORMAL FINDINGS ON DX IMAGING OF LIVER AND BILIARY TRACT Assessment/Plan Current Medications Generic Name Dose Route Start Last Admin Trade Name Freq PRN Reason Stop Dose Admin Heparin Sodium (Porcine) 5,000 unit 08/16/18 22:00 08/18/18 21:33 Heparin - SQ Not Given BID KRISTEN Losartan Potassium 50 mg 08/18/18 14:45 08/19/18 10:18 Cozaar - PO 50 mg DAILY KRISTEN Administration Metoprolol Succinate 12.5 mg 08/19/18 11:30 Toprol Xl - PO DAILY KRISTEN Morphine Sulfate 2 mg 08/19/18 14:05 08/19/18 14:17 Morphine Sulfate IVPUSH 2 mg Q6H PRN Administration PAIN LEVEL 5-10 Polyethylene Glycol 17 gm 08/18/18 10:00 08/19/18 10:11 Miralax (For Daily Use) - PO Not Given DAILY KRISTEN Senna 1 tab 08/18/18 10:00 08/19/18 10:11 Senna - PO Not Given BID KRISTEN Sevelamer Carbonate 1,600 mg 08/16/18 17:30 08/19/18 10:11 Renvela - PO Not Given TIDCM KRISTEN Trazodone HCl 50 mg 08/16/18 22:00 08/18/18 21:32 Desyrel - PO 50 mg HS KRISTEN Administration Impression 1. ESRD 2. DM 3. ascites 4. HTN 5. obesity 6. anemia 7. iron deficiency 8. CHF 9. anemia 10. non compliance 11. liver mass 12. hx GI bleed 13. diabetic nephropathy Plan - HD today - OR for PD catheter extraction - discussed with surgery - GI follow up - liver mass workup in progress - will follow Dr Quezada
--- NOTE | 2018-08-19 16:53 | PN ---
Progress Note (short form) - Note Progress Note: Patient seen in dialysis. +onychomycosis x 10, onychomycosis Unable to debride nails as policy in dialysis is that he cannot have a procedure while having dialysis according to 2 nurses present.
[2018-08-19] MEDS: metoPROLOL SUCCINATE 25 MG TAB.SR.24H (FP) PO SCH (17:06)
[2018-08-19] MEDS: HEPARIN NA (PORCINE) 5,000 UNITS/ML 1ML VIAL SQ SCH (22:43)
[2018-08-19] MEDS: traZODone HCL 50 MG TABLET (FP) PO SCH (22:43)
[2018-08-20] MEDS: MORPHINE SULFATE 2 MG/ML VIAL IVPUSH PRN (05:26)
--- NOTE | 2018-08-20 09:41 | PN ---
Progress Note, Physician Chief Complaint: patient seen and examined waiting to go to OR - Current Medication List Current Medications: Active Medications Heparin Sodium (Porcine) (Heparin -) 5,000 unit SQ BID [facility] Last Admin: 08/19/18 22:43 Dose: Not Given Losartan Potassium (Cozaar -) 50 mg PO DAILY [facility] Last Admin: 08/19/18 10:18 Dose: 50 mg Metoprolol Succinate (Toprol Xl -) 12.5 mg PO DAILY [facility] Last Admin: 08/19/18 17:06 Dose: Not Given Morphine Sulfate (Morphine Sulfate) 2 mg IVPUSH Q6H PRN PRN Reason: PAIN LEVEL 5-10 Last Admin: 08/20/18 05:26 Dose: 2 mg Polyethylene Glycol (Miralax (For Daily Use) -) 17 gm PO DAILY [facility] Last Admin: 08/19/18 10:11 Dose: Not Given Senna (Senna -) 1 tab PO BID [facility] Last Admin: 08/19/18 22:43 Dose: Not Given Sevelamer Carbonate (Renvela -) 1,600 mg PO TIDCM [facility] Last Admin: 08/19/18 18:05 Dose: 1,600 mg Trazodone HCl (Desyrel -) 50 mg PO HS [facility] Last Admin: 08/19/18 22:43 Dose: 50 mg - Objective Vital Signs: Vital Signs Temperature 98.6 F 08/20/18 08:37 Pulse Rate 102 H 08/20/18 08:37 Respiratory Rate 18 08/20/18 08:37 Blood Pressure 127/83 08/20/18 08:37 O2 Sat by Pulse Oximetry (%) 97 08/19/18 21:00 Constitutional: Yes: Calm Cardiovascular: Yes: Regular Rate and Rhythm, S1, S2 Respiratory: Yes: CTA Bilaterally, Diminished (at bases) Gastrointestinal: Yes: Distention (is less), Tenderness (at incision site) Neurological: Yes: Alert, Oriented Labs: CBC, BMP 08/19/18 14:45 08/19/18 14:45 INR, PTT INR 1.15 (0.83-1.09) H 08/17/18 12:10 Problem List - Problems (1) Ascites Assessment/Plan: s/p parapcentesis s/p PD cath removal yesterday but going back to OR today for removal of retained piece of PD cath-surgery on board Code(s): R18.8 - OTHER ASCITES Qualifiers: Ascites type: other type Qualified Code(s): R18.8 - Other ascites (2) ESRD (end stage renal disease) on dialysis Assessment/Plan: HD per renal epogen sevelamer Code(s): N18.6 - END STAGE RENAL DISEASE; Z99.2 - DEPENDENCE ON RENAL DIALYSIS (3) Abnormal liver CT Assessment/Plan: small irregular liver consistent with advanced hepatocellular disease -areas of ill define hypodensity predominantly in right lobe suggestive of malignancy markedly elevated AFP oncology and GI on board Code(s): R93.2 - ABNORMAL FINDINGS ON DX IMAGING OF LIVER AND BILIARY TRACT (4) Hypertensive cardiomegaly with heart failure Assessment/Plan: echo\cardiology eval\ elevated BP start medications Code(s): I11.0 - HYPERTENSIVE HEART DISEASE WITH HEART FAILURE
[2018-08-20] MEDS ORDERED: morphine SULFATE 4 MG/ML VIAL IVPUSH PRN (10:25)
[2018-08-20] MEDS: SENNOSIDES 8.6MG TABLET (FP) PO SCH ×2 (10:28→21:55)
[2018-08-20] MEDS: HEPARIN NA (PORCINE) 5,000 UNITS/ML 1ML VIAL SQ SCH ×2 (10:28→21:54)
[2018-08-20] MEDS: SEVELAMER CARBONATE 800 MG TAB (FP) PO SCH ×3 (10:28→18:11)
[2018-08-20] MEDS: metoPROLOL SUCCINATE 25 MG TAB.SR.24H (FP) PO SCH (10:28)
[2018-08-20] MEDS: LOSARTAN POTASSIUM 50 MG TABLET (FP) PO SCH (10:28)
[2018-08-20] MEDS: POLYETHYLENE GLYCOL 3350 119 GM BTL PO SCH (10:28)
--- NOTE | 2018-08-20 13:15 | PN ---
Progress Note (short form) - Note Progress Note: spoke with Dr. Melendez. Cannot ay that the liver lesions show classic appearacne of HCC as this seems to be a diffuse infiltrative process. he did say that the areas would be amenable to percutaneous biopsy. Alternatively, ? if biopsy can be obtained when they laparoscopically remove his peritoneal dialysis catheter. Problem List - Problems (1) Hepatocellular carcinoma Code(s): C22.0 - LIVER CELL CARCINOMA
[2018-08-20] MEDS ORDERED: ONDANSETRON 4 MG/2 ML VIAL IVPUSH PRN (14:43)
[2018-08-20] MEDS ORDERED: ROCURONIUM BROMIDE 50 MG/5 ML VIAL ONE (14:55)
[2018-08-20] MEDS ORDERED: DEXAMETHASONE SOD PHOSPHATE 4 MG/1 ML VIAL ONE (14:56)
[2018-08-20] MEDS ORDERED: MIDAZOLAM HCL 2 MG/2 ML SINGLE DOSE VIAL ONE (14:56)
--- NOTE | 2018-08-20 15:21 | PN ---
Progress Note, Physician History of Present Illness: Pt seen and examined at bedside. He is awake and alert. He is going to OR today. - Current Medication List Current Medications: Active Medications Fentanyl (Sublimaze Injection -) 25 mcg IVPUSH [id number] PRN PRN Reason: PAIN-PACU ORDER X 4 DOSES ONLY Heparin Sodium (Porcine) (Heparin -) 5,000 unit SQ BID [facility] Last Admin: 08/20/18 10:28 Dose: Not Given Losartan Potassium (Cozaar -) 50 mg PO DAILY [facility] Last Admin: 08/20/18 10:28 Dose: Not Given Metoprolol Succinate (Toprol Xl -) 12.5 mg PO DAILY [facility] Last Admin: 08/20/18 10:28 Dose: Not Given Morphine Sulfate (Morphine Sulfate) 4 mg IVPUSH Q4H PRN PRN Reason: PAIN LEVEL 7 - 10 Last Admin: 08/20/18 10:53 Dose: 4 mg Ondansetron HCl (Zofran Injection) 4 mg IVPUSH Q6H PRN PRN Reason: NAUSEA AND/OR VOMITING Polyethylene Glycol (Miralax (For Daily Use) -) 17 gm PO DAILY [facility] Last Admin: 08/20/18 10:28 Dose: Not Given Senna (Senna -) 1 tab PO BID [facility] Last Admin: 08/20/18 10:28 Dose: Not Given Sevelamer Carbonate (Renvela -) 1,600 mg PO TIDCM [facility] Last Admin: 08/20/18 13:10 Dose: Not Given Trazodone HCl (Desyrel -) 50 mg PO HS [facility] Last Admin: 08/19/18 22:43 Dose: 50 mg - Objective Vital Signs: Vital Signs Temperature 97.6 F 08/20/18 13:26 Pulse Rate 101 H 08/20/18 13:26 Respiratory Rate 18 08/20/18 13:26 Blood Pressure 108/82 08/20/18 13:26 O2 Sat by Pulse Oximetry (%) 100 08/20/18 09:00 Constitutional: Yes: Calm Eyes: Yes: Conjunctiva Clear HENT: Yes: Atraumatic Cardiovascular: Yes: S1, S2 Respiratory: Yes: CTA Bilaterally Gastrointestinal: Yes: Soft Genitourinary: Yes: WNL Musculoskeletal: Yes: WNL Edema: No Neurological: Yes: Oriented Psychiatric: Yes: Oriented Labs: CBC, BMP 08/19/18 14:45 08/19/18 14:45 INR, PTT INR 1.15 (0.83-1.09) H 08/17/18 12:10 Problem List - Problems (1) Ascites Code(s): R18.8 - OTHER ASCITES Qualifiers: Ascites type: other type Qualified Code(s): R18.8 - Other ascites (2) ESRD (end stage renal disease) on dialysis Code(s): N18.6 - END STAGE RENAL DISEASE; Z99.2 - DEPENDENCE ON RENAL DIALYSIS (3) Diabetes Code(s): E11.9 - TYPE 2 DIABETES MELLITUS WITHOUT COMPLICATIONS Qualifiers: Diabetes mellitus type: type 2 Diabetes mellitus intermodal dispatcher insulin use: with nursing home use Diabetes mellitus complication status: without complication Qualified Code(s): E11.9 - Type 2 diabetes mellitus without complications; Z79.4 - ad terminal makeup operator (current) use of insulin (4) Abnormal liver CT Code(s): R93.2 - ABNORMAL FINDINGS ON DX IMAGING OF LIVER AND BILIARY TRACT Assessment/Plan Current Medications Generic Name Dose Route Start Last Admin Trade Name Freq PRN Reason Stop Dose Admin Fentanyl 25 mcg 08/20/18 14:43 Sublimaze Injection - IVPUSH [id number] PRN PAIN-PACU ORDER X 4 DOSES ONLY Heparin Sodium (Porcine) 5,000 unit 08/16/18 22:00 08/20/18 10:28 Heparin - SQ Not Given BID [facility] Losartan Potassium 50 mg 08/18/18 14:45 08/20/18 10:28 Cozaar - PO Not Given DAILY [facility] Metoprolol Succinate 12.5 mg 08/19/18 11:30 08/20/18 10:28 Toprol Xl - PO Not Given DAILY [facility] Morphine Sulfate 4 mg 08/20/18 10:25 08/20/18 10:53 Morphine Sulfate IVPUSH 4 mg Q4H PRN Administration PAIN LEVEL 7 - 10 Ondansetron HCl 4 mg 08/20/18 14:43 Zofran Injection IVPUSH Q6H PRN NAUSEA AND/OR VOMITING Polyethylene Glycol 17 gm 08/18/18 10:00 08/20/18 10:28 Miralax (For Daily Use) - PO Not Given DAILY [facility] Senna 1 tab 08/18/18 10:00 08/20/18 10:28 Senna - PO Not Given BID KRISTEN Sevelamer Carbonate 1,600 mg 08/16/18 17:30 08/20/18 13:10 Renvela - PO Not Given TIDCM KRISTEN Trazodone HCl 50 mg 08/16/18 22:00 08/19/18 22:43 Desyrel - PO 50 mg HS KRISTEN Administration Impression 1. ESRD 2. DM 3. ascites 4. HTN 5. obesity 6. anemia 7. iron deficiency 8. CHF 9. anemia 10. non compliance 11. liver mass 12. hx GI bleed 13. diabetic nephropathy Plan - HD in am - pt going to OR today for removal of the PD catheter and possible liver biopsy - will follow - discussed plan with pt - spoke to GI and surgery - will follow Dr Quezada
[2018-08-20] MEDS ORDERED: SODIUM CHLORIDE 250 ML IV PRN ×2 (15:22→17:23)
[2018-08-20] MEDS ORDERED: VECURONIUM BROMIDE 10 MG VIAL ONE (15:30)
[2018-08-20] MEDS ORDERED: CLINDAMYCIN PHOSPHATE 600 MG/4 ML VIAL IVPB ONE (15:50)
[2018-08-20] MEDS ORDERED: CLINDAMYCIN PHOSPHATE 600 MG/4 ML VIAL ONE (15:50)
[2018-08-20] MEDS ORDERED: BUPIVACAINE HCL/PF 0.5% (5MG/ML) 10 ML VIAL ONE (15:53)
[2018-08-20] MEDS ORDERED: GLYCOPYRROLATE 0.2 MG/1 ML VIAL ONE (16:25)
[2018-08-20] MEDS ORDERED: NEOSTIGMINE METHYLSULFATE 0.5 MG/ML - 10 ML MDV ONE (16:27)
--- NOTE | 2018-08-20 17:12 | OP ---
Operative Note - Note: Operative Date: 08/20/18 Pre-Operative Diagnosis: retained foreign body peritoneal dialysis catherter Operation: diagnostic laparoscopy, removal of peritoneal dialysis catheter, liver biopsy right lobe nodule Findings: Aspirated 2300ml of greeish ascites. intraperitoneal portion of the peritoneal dialysis catheter was removed after located in the upper pelvis midline. There was grossly metatstatic liver disease in the right lobe of the liver. Omental caking and peritoneal implants observed in the right abdomen. ascites sent for cytology and nodule sent for final pathologic diagnosis Post-Operative Diagnosis: Same as Pre-op Surgeon: Rivera Escobar (q) Grey Washer: Alejo Guthrie Anesthesiologist/MANAGER COMMUNITY: Hernandez Taylor Anesthesia: General, Local (0.5% marcaine ) Specimens Removed: liver biopsy right lobe, ascites for cytology Estimated Blood Loss (mls): 5 Drains, Volume Out (mls): 2,300 (ascites ) Fluid Volume Replaced (mls): 500 Operative Report Dictated: Yes
[2018-08-20] MEDS: morphine SULFATE 4 MG/ML VIAL IVPUSH PRN ×2 (18:26→22:49)
--- NOTE | 2018-08-20 20:10 | SURG ---
Surgery Plastic Parts Designer Note Plastic Parts Designer: Alejo Guthrie PA-C Date of Service: 08/20/18 Diagnosis: retained foreign body peritoneal dialysis catherter Procedure: Diagnostic laparoscopy, removal of peritoneal dialysis catheter, liver biopsy right lobe nodule I was present for the entirety of the operative procedure. For further detail, please refer to operative report. Visit type - Case Type Case Type: ED Admission
--- NOTE | 2018-08-20 20:36 | PN ---
Progress Note (short form) - Note Progress Note: [facility] in [facility] floor around 12:50pm. Mother present. +onychomycosis x 10, onychomycosis Nails debrided. Foot care q8 weeks. Scheduled for surgery.
[2018-08-20] MEDS ORDERED: traZODone HCL 50 MG TABLET (FP) PO SCH (22:00)
[2018-08-21] MEDS: morphine SULFATE 4 MG/ML VIAL IVPUSH PRN (05:56)
[2018-08-21] MEDS ORDERED: PT OWN MED DRAWER 7, Y5N ONE (06:48)
[2018-08-21] MEDS ORDERED: SODIUM CHLORIDE 250 ML IV PRN (07:38)
[2018-08-21] MEDS: SEVELAMER CARBONATE 800 MG TAB (FP) PO SCH ×2 (08:01→12:08)
[2018-08-21 08:02] LABS: BASO % 0.3 % (0-2.0); EOS % 0.1 % (0-4.5); HEMATOCRIT 30.9 % (35.4-49); HEMOGLOBIN 9.8 GM/dL (11.7-16.9); LYMPH % 8.3 % (8-40); MCH 32.6 pg (25.7-33.7); MCHC 31.8 g/dl (32.0-35.9); MEAN CELL VOLUME 102.5 fl (80-96); MEAN PLT VOLUME 9.3 fl (7.5-11.1); MONO % 9.7 % (3.8-10.2); NEUT % 81.6 % (42.8-82.8); PLATELET COUNT 286 K/MM3 (134-434); RBC 3.01 M/mm3 (4.00-5.60); WHITE BLOOD COUNT 10.3 K/mm3 (4.0-10.0)
[2018-08-21 09:06] LABS: ALBUMIN 2.6 g/dl (3.4-5.0); ALK PHOS 1182 U/L (45-117); ANION GAP 15 MMOL/L (8-16); BLOOD UREA NITROGEN 50 mg/dL (7-18); CALCIUM 7.7 mg/dL (8.5-10.1); CHLORIDE 94 mmol/L (98-107); CO2 25 mmol/L (21-32); GLUCOSE,RANDOM 109 mg/dL (74-106); POTASSIUM 4.6 mmol/L (3.5-5.1); SGOT/AST 127 U/L (15-37); SGPT/ALT 98 U/L (13-61); SODIUM 133 mmol/L (136-145); TOT PROT 6.2 g/dl (6.4-8.2)
[2018-08-21] MEDS ORDERED: EPOETIN ALFA 10,000 UNIT/1 ML VIAL IVPUSH ONE ×2 (10:00→11:00)
[2018-08-21] MEDS ORDERED: POLYETHYLENE GLYCOL 3350 119 GM BTL PO SCH (10:00)
[2018-08-21] MEDS ORDERED: metoPROLOL SUCCINATE 25 MG TAB.SR.24H (FP) PO SCH (10:00)
[2018-08-21] MEDS ORDERED: LOSARTAN POTASSIUM 50 MG TABLET (FP) PO SCH (10:00)
--- NOTE | 2018-08-21 10:38 | DS ---
Physical Examination Vital Signs: Vital Signs Temperature 97.5 F L 08/21/18 06:08 Pulse Rate 93 H 08/21/18 06:08 Respiratory Rate 18 08/21/18 06:08 Blood Pressure 101/70 08/21/18 06:08 O2 Sat by Pulse Oximetry (%) 97 08/20/18 21:00 Findings/Remarks: 53y M hx of dm, htn, ESRD (T, Th, Sa, last dialysis Sa), GIB, anemia, presents with complaint of 5-6 days of increasing abdominal distension. Pt was formerly evaluated in the ED 3 days ago where he got CT/US. Pt has awaiting fu with a liver specialist at [place] for a CT with contrast. Pt is feeling increased distension/bloated. Pt did an enema last night and some enemas thinking it may be due to constipation, had a small soft BM this morning that didnt change his distension. Pt notes he has not eaten much the past few days because he thought it would make him more bloated.patient recently at [facility] for a insect bite on his arm Denies any fever/chills, n/v, diarrhea, melena, bpr, cp, sob, palpitations, n/v , lightehadedness. Patient is aformerly was an alcoholic, currently drinks 1 drink a night Constitutional: Yes: Well Nourished, No Distress, Calm Cardiovascular: Yes: Regular Rate and Rhythm Respiratory: Yes: Regular Gastrointestinal: Yes: Normal Bowel Sounds, Soft Musculoskeletal: Yes: WNL Extremities: Yes: WNL Edema: No Peripheral Pulses WNL: Yes Neurological: Yes: Alert, Oriented Psychiatric: Yes: Alert, Oriented Labs: CBC, BMP 08/21/18 06:50 08/21/18 06:50 Discharge Summary Reason For Visit: ASCITES, DYALYSIS PATIENT, END-STATE RENAL DISEASE Current Active Problems Ascites (Acute) ESRD (end stage renal disease) on dialysis (Acute) Hepatocellular carcinoma (Acute) Presence of peritoneal dialysis catheter (Acute) Diabetes (Chronic) Hospital Course: Operative Date: 08/20/18 Pre-Operative Diagnosis: retained foreign body peritoneal dialysis catherter Operation: diagnostic laparoscopy, removal of peritoneal dialysis catheter, liver biopsy right lobe nodule Findings: Aspirated 2300ml of greeish ascites. intraperitoneal portion of the peritoneal dialysis catheter was removed after located in the upper pelvis midline. There was grossly metatstatic liver disease in the right lobe of the liver. Omental caking and peritoneal implants observed in the right abdomen. ascites sent for cytology and nodule sent for final pathologic diagnosis Post-Operative Diagnosis: Same as Pre-op Surgeon: Rivera Escobar (q) Laboratory Last Values WBC 10.3 K/mm3 (4.0-10.0) H 08/21/18 06:50 RBC 3.01 M/mm3 (4.00-5.60) L 08/21/18 06:50 Hgb 9.8 GM/dL (11.7-16.9) L 08/21/18 06:50 Hct 30.9 % (35.4-49) L 08/21/18 06:50 MCV 102.5 fl (80-96) H 08/21/18 06:50 MCH 32.6 pg (25.7-33.7) 08/21/18 06:50 MCHC 31.8 g/dl (32.0-35.9) L 08/21/18 06:50 RDW 19.0 % (11.9-15.9) H 08/21/18 06:50 Plt Count 286 K/MM3 (134-434) D 08/21/18 06:50 MPV 9.3 fl (7.5-11.1) 08/21/18 06:50 Absolute Neuts (auto) 8.4 K/mm3 (1.5-8.0) H 08/21/18 06:50 Neutrophils % 81.6 % (42.8-82.8) 08/21/18 06:50 Neutrophils % (Manual) 78.0 % (42.8-82.8) 08/17/18 06:10 Band Neutrophils % 0.0 % 08/17/18 06:10 Lymphocytes % 8.3 % (8-40) D 08/21/18 06:50 Lymphocytes % (Manual) 6.0 % (8-40) L 08/17/18 06:10 Monocytes % 9.7 % (3.8-10.2) 08/21/18 06:50 Monocytes % (Manual) 11 % (3.8-10.2) H 08/17/18 06:10 Eosinophils % 0.1 % (0-4.5) D 08/21/18 06:50 Eosinophils % (Manual) 0.0 % (0-4.5) D 08/17/18 06:10 Basophils % 0.3 % (0-2.0) 08/21/18 06:50 Basophils % (Manual) 0.0 % (0-2.0) 08/17/18 06:10 Myelocytes % (Man) 1 % (0-2) 08/17/18 06:10 Promyelocytes % (Man) 0 % (0-2) 08/17/18 06:10 Blast Cells % (Manual) 0 % (0-0) 08/17/18 06:10 Nucleated RBC % 0 % (0-0) 08/21/18 06:50 Metamyelocytes 3 % (0-2) H 08/17/18 06:10 Hypochromia 0 08/17/18 06:10 Platelet Estimate Normal 08/17/18 06:10 Polychromasia 1+ 08/17/18 06:10 Poikilocytosis 1+ 08/17/18 06:10 Anisocytosis 1+ 08/17/18 06:10 Microcytosis 1+ 08/17/18 06:10 Macrocytosis 1+ 08/17/18 06:10 Target Cells 1+ 08/17/18 06:10 PT with INR 13.60 SEC (9.7-13.0) H 08/17/18 12:10 INR 1.15 (0.83-1.09) H 08/17/18 12:10 Sodium 133 mmol/L (136-145) L 08/21/18 06:50 Potassium 4.6 mmol/L (3.5-5.1) 08/21/18 06:50 Chloride 94 mmol/L (98-107) L 08/21/18 06:50 Carbon Dioxide 25 mmol/L (21-32) 08/21/18 06:50 Anion Gap 15 MMOL/L (8-16) 08/21/18 06:50 BUN 50 mg/dL (7-18) H 08/21/18 06:50 Creatinine 8.0 mg/dL (0.55-1.3) H* 08/21/18 06:50 Creat Clearance w eGFR 7.15 (>60) 08/21/18 06:50 POC Glucometer 99 UNITS (80-120) 08/20/18 13:06 Random Glucose 109 mg/dL (74-106) H 08/21/18 06:50 Calcium 7.7 mg/dL (8.5-10.1) L 08/21/18 06:50 Phosphorus 5.4 mg/dL (2.5-4.9) H 08/17/18 06:10 Magnesium 1.7 mg/dL (1.8-2.4) L 08/17/18 06:10 Total Bilirubin 1.0 mg/dL (0.2-1) 08/21/18 06:50 Direct Bilirubin 0.7 mg/dL (0.0-0.2) H 08/17/18 06:10 AST 127 U/L (15-37) H 08/21/18 06:50 ALT 98 U/L (13-61) H 08/21/18 06:50 Alkaline Phosphatase 1182 U/L (45-117) H 08/21/18 06:50 Total Protein 6.2 g/dl (6.4-8.2) L 08/21/18 06:50 Albumin 2.6 g/dl (3.4-5.0) L 08/21/18 06:50 Tumor Marker AFP 40342.0 ng/ml (0.0-8.3) H 08/18/18 06:10 Fluid Source Peritoneal 08/17/18 09:40 Fluid WBC 360 /mm3 08/17/18 09:40 Fluid RBC 1402 /mm3 08/17/18 09:40 Fluid Neutrophils 8 % 08/17/18 09:40 Fluid Lymphocytes 41 % 08/17/18 09:40 Fluid Glucose 112 mg/dl 08/17/18 09:40 Fluid Total Protein 2.9 g/dl 08/17/18 09:40 LDH Serum/Fluid Ratio 156 IU/L 08/17/18 09:40 Fluid Amylase 36 08/17/18 09:40 Peritoneal Albumin 1 g/dL 08/17/18 09:40 Peritoneal Amylase 36 U/L 08/17/18 09:40 Pleural Eosinophils 1 % 08/17/18 09:40 Pleural Macrophages 46 % 08/17/18 09:40 Pleural Mesothelial 4 % 08/17/18 09:40 Hep A IgM Ab Confirm Negative (Negative) 08/17/18 14:30 Hepatitis A Ab Total Positive (Negative) H 08/17/18 14:30 Hep Bs Antigen Negative (Negative) 08/17/18 14:30 Hep Bs Antibody Non reactive (.) 08/17/18 14:30 Hep B Core Total Ab Negative (Negative) 08/17/18 14:30 Hep C Ab Diagnostic <0.1 s/co ratio (0.0-0.9) 08/17/18 14:30 Microbiology 08/17/18 09:40 Abdomen AFB Smear Concentration - Final 08/17/18 09:40 Abdomen Mycobacterial Culture - Preliminary 08/17/18 09:40 Abdomen Gram Stain - Final 08/17/18 09:40 Abdomen Body Fluid Culture - Final NO GROWTH OF AEROBIC ORGANISMS AFTER 48 HOURS INCUBATION 08/17/18 09:40 Abdomen Anaerobic Culture - Final NO ANAEROBES WERE ISOLATED 08/17/18 09:40 Abdomen ROMINA Preparation - Preliminary 08/17/18 09:40 Abdomen Fungal Culture - Preliminary Condition: Stable - Instructions Referrals: Billy Becerra MD [Staff Physician] - Disposition: HOME - Home Medications Comprehensive Discharge Medication List: Ambulatory Orders Sevelamer Carbonate [Renvela -] 1,600 mg PO TID 01/27/18 traZODone HCL [Trazodone HCl] 50 mg PO HS 04/07/18 Pantoprazole Sodium 40 mg PO BID 05/04/18 Docusate Sodium [Stool Softener] 100 mg PO ASDIR 08/16/18 Simethicone [Gas-X] 125 mg PO ASDIR 08/16/18 Carvedilol 3.125 mg PO 08/18/18 Furosemide [Lasix] 40 mg PO 08/18/18
[2018-08-21] MEDS: ALBUMIN HUMAN 25% 12.5 GM/50 ML VIAL IVPB SCH ×3 (10:42→10:44)
[2018-08-21 10:47] VITALS: TEMP 98.4
--- NOTE | 2018-08-21 11:37 | PN ---
Progress Note (short form) - Note Progress Note: Dialysis catheter removed and right lobe of liver nodule biopsied during procedure AFP now > 70,000 Oncology following. Likely multifocal HCC. Problem List - Problems (1) Hepatocellular carcinoma Code(s): C22.0 - LIVER CELL CARCINOMA
[2018-08-21] MEDS ORDERED: ALBUMIN HUMAN 25% 12.5 GM/50 ML VIAL IVPB SCH ×2 (12:00→15:30)
[2018-08-21] MEDS: SENNOSIDES 8.6MG TABLET (FP) PO SCH (12:08)
[2018-08-21] MEDS: HEPARIN NA (PORCINE) 5,000 UNITS/ML 1ML VIAL SQ SCH (12:08)
[2018-08-21 15:00] VITALS: BP 103/63; PULSE 109
[2018-08-21] MEDS ORDERED: EPOETIN ALFA 2,000 UNIT/1 ML VIAL IVPUSH ONE (15:22)
--- NOTE | 2018-08-21 15:42 | PN ---
Progress Note, Physician History of Present Illness: Pt seen and examined at bedside. He is very agitated and wants to go home. I was called by the HD nurse and told that flow was only 200 and venous pressure was elevated. I recommended decreasing the UF and flushing with saline. I did call vascular surgery. Catheter later started to work with a flow of 325, nurse however did not inform me. Pt will follow with vascular as outpt. - Current Medication List Current Medications: Active Medications Heparin Sodium (Porcine) (Heparin -) 5,000 unit SQ BID [facility] Last Admin: 08/21/18 12:08 Dose: Not Given Sodium Chloride (Normal Saline -) 250 mls @ 3,000 mls/hr IV PRN PRN PRN Reason: Hypotension during Dialysis Stop: 08/22/18 07:37 Losartan Potassium (Cozaar -) 50 mg PO DAILY [facility] Last Admin: 08/21/18 14:14 Dose: Not Given Metoprolol Succinate (Toprol Xl -) 12.5 mg PO DAILY [facility] Last Admin: 08/21/18 14:15 Dose: Not Given Morphine Sulfate (Morphine Sulfate) 4 mg IVPUSH Q4H PRN PRN Reason: PAIN LEVEL 7 - 10 Last Admin: 08/21/18 05:56 Dose: 4 mg Polyethylene Glycol (Miralax (For Daily Use) -) 17 gm PO DAILY [facility] Senna (Senna -) 1 tab PO BID [facility] Last Admin: 08/21/18 12:08 Dose: 1 tab Sevelamer Carbonate (Renvela -) 1,600 mg PO TIDCM [facility] Last Admin: 08/21/18 12:08 Dose: 1,600 mg Trazodone HCl (Desyrel -) 50 mg PO HS [facility] Last Admin: 08/20/18 21:54 Dose: 50 mg - Objective Vital Signs: Vital Signs Temperature 98.4 F 08/21/18 08:00 Pulse Rate 109 H 08/21/18 14:54 Respiratory Rate 20 08/21/18 14:54 Blood Pressure 103/63 08/21/18 14:54 O2 Sat by Pulse Oximetry (%) 97 08/21/18 12:30 Constitutional: Yes: Calm Eyes: Yes: Conjunctiva Clear HENT: Yes: Atraumatic Neck: Yes: Supple Cardiovascular: Yes: S1, S2 Respiratory: Yes: CTA Bilaterally Gastrointestinal: Yes: Soft Genitourinary: Yes: WNL Musculoskeletal: Yes: WNL Extremities: Yes: WNL Edema: No Neurological: Yes: Oriented Psychiatric: Yes: Oriented Labs: CBC, BMP 08/21/18 06:50 08/21/18 06:50 INR, PTT INR 1.15 (0.83-1.09) H 08/17/18 12:10 Problem List - Problems (1) Ascites Code(s): R18.8 - OTHER ASCITES Qualifiers: Ascites type: other type Qualified Code(s): R18.8 - Other ascites (2) ESRD (end stage renal disease) on dialysis Code(s): N18.6 - END STAGE RENAL DISEASE; Z99.2 - DEPENDENCE ON RENAL DIALYSIS (3) Diabetes Code(s): E11.9 - TYPE 2 DIABETES MELLITUS WITHOUT COMPLICATIONS Qualifiers: Diabetes mellitus type: type 2 Diabetes mellitus nursing home insulin use: with nursing home use Diabetes mellitus complication status: without complication Qualified Code(s): E11.9 - Type 2 diabetes mellitus without complications; Z79.4 - FDC (current) use of insulin (4) Abnormal liver CT Code(s): R93.2 - ABNORMAL FINDINGS ON DX IMAGING OF LIVER AND BILIARY TRACT Assessment/Plan Current Medications Generic Name Dose Route Start Last Admin Trade Name Freq PRN Reason Stop Dose Admin Heparin Sodium (Porcine) 5,000 unit 08/20/18 22:00 08/21/18 12:08 Heparin - SQ Not Given BID KRISTEN Sodium Chloride 250 mls @ 3,000 mls/hr 08/21/18 07:38 Normal Saline - IV 08/22/18 07:37 PRN PRN Hypotension during Dialysis Losartan Potassium 50 mg 08/21/18 10:00 08/21/18 14:14 Cozaar - PO Not Given DAILY KRISTEN Metoprolol Succinate 12.5 mg 08/21/18 10:00 08/21/18 14:15 Toprol Xl - PO Not Given DAILY KRISTEN Morphine Sulfate 4 mg 08/20/18 17:23 08/21/18 05:56 Morphine Sulfate IVPUSH 4 mg Q4H PRN Administration PAIN LEVEL 7 - 10 Polyethylene Glycol 17 gm 08/21/18 10:00 Miralax (For Daily Use) - PO DAILY KRISTEN Senna 1 tab 08/20/18 22:00 08/21/18 12:08 Senna - PO 1 tab BID KRISTEN Administration Sevelamer Carbonate 1,600 mg 08/20/18 17:30 08/21/18 12:08 Renvela - PO 1,600 mg TIDCM KRISTEN Administration Trazodone HCl 50 mg 08/20/18 22:00 08/20/18 21:54 Desyrel - PO 50 mg HS KRISTEN Administration Impression 1. ESRD 2. DM 3. ascites 4. HTN 5. obesity 6. anemia 7. iron deficiency 8. CHF 9. anemia 10. non compliance 11. liver mass 12. hx GI bleed 13. diabetic nephropathy Plan - HD today, events noted - follow up biopsy - pt is requesting to go home - PD catheter removed - will follow Dr Quezada
--- NOTE | 2018-08-26 16:27 | PATH ---
Cytology Non-Gynecological Report Patient Name: JUDITH VALLE Med. Rec. #: [id number] /Age/Gender: 1965 (Age: 53) / M Account: [id number] Location: [facility] MED/SURG Taken: 08/20/2018 Received: 08/23/2018 Reported: 08/26/2018 Physicians: Martín Carlton M.D. Specimen(s) Received PERITONEAL FLUID Clinical History Ascites, liver mass Final Diagnosis PERITONEAL FLUID FOR CYTOLOGY: SATISFACTORY FOR EVALUATION. NO MALIGNANT CELLS IDENTIFIED. MESOTHELIAL CELLS WITH DEGENERATIVE CHANGES AND LYMPHOCYTES PRESENT. Comment: See concurrent material [id number]. Prior cytology noted. Electronically Signed Saritha Stephenson M.D. Gross Description Approximately 40 cc of yellow fluid fresh. One cytofunnel prepared and Pap stained. One cellblock prepared.
--- NOTE | 2018-08-30 19:45 | OP ---
DATE OF OPERATION: 08/20/2018 PREOPERATIVE DIAGNOSIS: Retained foreign body, peritoneal dialysis catheter. POSTOPERATIVE DIAGNOSIS: Retained foreign body, peritoneal dialysis catheter. PROCEDURE: Diagnostic laparoscopy, removal of peritoneal dialysis catheter, liver biopsy of the right lobe nodule. ATTENDING SURGEON: Rivera Escobar MD DIETARY SERVICES MANAGER: Alejo Guthrie PA-C BIOMETRICS TECHNICIAN: Hernandez Taylor CRNA ESTIMATED BLOOD LOSS: 5 mL INTRAVENOUS FLUIDS: 500 mL of crystalloid. DRAINAGE OUTPUT: 2300 of ascites. SPECIMENS: Liver biopsy right lobe, ascitic fluid for cytology. BRIEF FINDINGS: Patient was aspirated 2300 mL of greenish ascites, intraperitoneal portion of the peritoneal dialysis catheter was removed and located in the upper pelvis in the midline. There was grossly metastatic liver disease in the right lobe of the liver. There was omental caking and peritoneal implants observed in the right abdomen. Ascites was sent for cytology and a nodule biopsy of the right lobe of the liver was sent for final pathologic diagnosis. INDICATIONS: Patient is a 53-year-old male. We were called on consultation after peritoneal dialysis catheter was lost in the abdomen when attempted removal externally. He was counseled regarding the risks, benefits, and alternatives for diagnostic laparoscopy and retrieval of the foreign body. Signed informed consent and was taken for procedure. DESCRIPTION OF PROCEDURE: Patient was brought to the operating room and was placed in the supine position on the operating table with both arms tucked. We proceeded first with a clipping. Sterile prep and drape of the anterior abdominal wall. We proceeded, after formal timeout identified the operative site and procedure, with left upper quadrant entry with a Veress needle into the abdomen. The abdominal wall skin was elevated with towel clamps and then a darien incision was made with a 15-blade scalpel. The Veress was installed and after a formal drop test, a pneumoperitoneum was established with 15 mmHg. With this established and the abdomen appropriately tympanic, the Veress needle was removed and a 5-mm Visiport was used to then enter the abdomen. Once in place, the abdomen was inspected. There appeared to be a large amount of ascites, which was suctioned from the 5-mm trocar site. There were 2300 mL of greenish ascitic fluid suctioned. The first 15 mL was sent for cytologic evaluation. After completion aspiration of the ascites, we then began with a systematic exploration of the abdomen. The right lobe of the liver was identified to have gross nodules that appeared to be neoplastic in origin. There were omental caking and observed implants in the abdominal wall. We turned our attention to the lower abdomen. The bowel appeared uninvolved and the process appeared nonpathologic. The catheter with its cut end minus internal cuff was identified in the midline. It was retrieved with an additional 5-mm trocar site [id number] the abdominal wall. We then took care to explore the remainder of the abdomen, which appeared relatively normal in the left lower quadrant and left upper quadrant. We turned our attention again to the liver, which appeared to have multiple nodules of a neoplastic process. An area of nodularity was selected. Bovie cautery using a spatula was then used to encircle this area of irregularity, which was selected from the remaining lobe of the liver, which was also grossly abnormal throughout on the right lobe. Cord sample was taken with the Bovie at 70 to allow for cauterization with no blood loss apparent. The nodular implant was retrieved from the abdomen using EndoCatch bag. We turned our attention finally, after completion of the diagnostic laparoscopy as well as retrieval of foreign body, to removing the port sites under direct visualization and closure at the skin. The 5-mm port sites were closed with 4-0 nylon and then Dermabond was placed. The patient was awoken from general anesthesia, having tolerated the procedure well. Was stable throughout the procedure and given instructions and will follow up with the pathology. MD WARREN Linares/[id number]
--- NOTE | 2018-08-31 13:29 | PATH ---
Surgical Pathology Report Patient Name: JUDITH VALLE Med. Rec. #: [id number] /Age/Gender: 1965 (Age: 53) / M Account: [id number] Location: [facility] MED/SURG Taken: 08/20/2018 Received: 08/23/2018 Reported: 08/31/2018 Physicians: Lorelei Linares M.D. Christopher DiGiorno, D.O. Specimen(s) Received A: PERITONEAL CATHETER B: LIVER BIOPSY Clinical History Ascites Final Diagnosis A. PERITONEAL DIALYSIS CATHETER, REMOVAL: CATHETER. MACROSCOPIC DIAGNOSIS. B. LIVER, BIOPSY: ADENOCARCINOMA, MODERATE TO POORLY DIFFERENTIATED. SEE COMMENT. Comment: Histologic sections show malignant epithelial cells dispersed as sheets and aggregates with glandular differentiation embedded in fibrous stroma. Marked cautery artifact is noted. Immunohistochemical stains performed and interpreted at [facility] show the tumor is positive for AE1/3 and focally for CK7, while negative for CK20. Immunohistochemical stains performed at [place], [place] ([id number]) and interpreted at [facility] show the tumor is positive for Chip-Ep4, Glypican-3 and CEA; while negative for HAS/Hepar, CD10, Arginase, p40, TTF-1, and AFP. Overall immunophenotype is non-specific. Differential diagnosis includes origin from pancreatico-biliary tract (favor intrahepatic cholangiocarcinoma) and upper GI. Suggest clinical and radiologic correlation. Findings discussed with Dr. Dorsey. Electronically Signed Saritha Stephenson M.D. Gross Description A. Received fresh labeled "peritoneal dialysis catheter," is a 30 cm in length clear, coiled portion of tubing, consistent with a catheter. No soft tissue is present. No sections are submitted, gross only. B. Received in formalin labeled "liver biopsy," is a 0.8 x 0.6 x 0.5 cm colón portion of soft tissue. The specimen is bisected and entirely submitted in one cassette. 08/23/2018 [facility]08/23/2018
== END 2018-08-21 15:45 | disposition home or self-care (01) | DRG 939 ==
LOC: JER 08:40 → JERBED 11:31 → UNDOADMOB 11:31 → INTOOBSV 11:31 → JERBED 13:34 → J7W 19:25 → OBSVTOIN 08-18 07:03
PROVIDERS: ADMIT Family Medicine; ATTEND Family Medicine
PROC: 0W9G3ZX Drainage of Peritoneal Cavity, Percutaneous Approach, Diagnostic (ICD-10-PCS; 2018-08-19)
PROC: 0WPG03Z Removal of Infusion Device from Peritoneal Cavity, Open Approach (ICD-10-PCS; 2018-08-20)
PROC: 0FB13ZX Excision of Right Lobe Liver, Percutaneous Approach, Diagnostic (ICD-10-PCS; 2018-08-20)
PROC: 0W9G3ZX Drainage of Peritoneal Cavity, Percutaneous Approach, Diagnostic (ICD-10-PCS; 2018-08-20)
PROC: 0HBRXZZ Excision of Toe Nail, External Approach (ICD-10-PCS; 2018-08-20)
PROC: 0HBRXZZ Excision of Toe Nail, External Approach (ICD-10-PCS; 2018-08-20)
PROC: 0HBRXZZ Excision of Toe Nail, External Approach (ICD-10-PCS; 2018-08-20)
PROC: 0HBRXZZ Excision of Toe Nail, External Approach (ICD-10-PCS; 2018-08-20)
PROC: 0HBRXZZ Excision of Toe Nail, External Approach (ICD-10-PCS; 2018-08-20)
PROC: 0HBRXZZ Excision of Toe Nail, External Approach (ICD-10-PCS; 2018-08-20)
PROC: 0HBRXZZ Excision of Toe Nail, External Approach (ICD-10-PCS; 2018-08-20)
PROC: 0HBRXZZ Excision of Toe Nail, External Approach (ICD-10-PCS; 2018-08-20)
PROC: 0HBRXZZ Excision of Toe Nail, External Approach (ICD-10-PCS; 2018-08-20)
PROC: 0HBRXZZ Excision of Toe Nail, External Approach (ICD-10-PCS; 2018-08-20)
PROC: 0W9G3ZX Drainage of Peritoneal Cavity, Percutaneous Approach, Diagnostic (ICD-10-PCS; principal; 2018-08-20 13:30)
DX: R18.8 Other ascites (principal); N18.6 End stage renal disease; I13.2 Hypertensive heart and chronic kidney disease with heart failure and with stage 5 chronic kidney disease, or end stage renal disease; C22.0 Liver cell carcinoma; R14.0 Abdominal distension (gaseous); E11.22 Type 2 diabetes mellitus with diabetic chronic kidney disease; E78.5 Hyperlipidemia, unspecified; Z99.2 Dependence on renal dialysis; R93.2 Abnormal findings on diagnostic imaging of liver and biliary tract; R16.0 Hepatomegaly, not elsewhere classified; B35.1 Tinea unguium; E66.8 Other obesity; Z68.28 Body mass index [BMI] 28.0-28.9, adult; D50.9 Iron deficiency anemia, unspecified; Z87.19 Personal history of other diseases of the digestive system; Z91.19 Patient's noncompliance with other medical treatment and regimen
CPT/HCPCS: 36415; 49082; 49422; 74018-TC-FY; 74178-TC; 80048; 80053; 80076; 82042; 82105; 82150; 82565; 82945; 82962; 83615; 83735; 83986; 84100; 84157; 85025; 85027; 85610; 86704; 86706; 86708; 86803; 87070; 87075; 87102; 87116; 87205; 87206; 87210; 87340; 88108; 88300-TC; 88305-TC; 88341-TC; 89050; 93005; 93010; 93306-TC; 94760; 99285-25; G0378; J0885; J1644; J7030; P9047

== ENCOUNTER 2018-08-29 15:25 | Inpatient (IN) | payer BC, OTHER ==
--- NOTE | 2018-08-29 16:21 | PDOC ---
History of Present Illness - General Chief Complaint: Pain, Acute Stated Complaint: ABD PAIN Time Seen by Provider: 08/29/18 15:56 History Source: Patient - History of Present Illness Timing/Duration: reports: getting worse Quality: reports: aching Abdominal Pain Onset Location: reports: generalized abdomen Past History - Past Medical History Allergies/Adverse Reactions: Allergies Allergy/AdvReac Type Severity Reaction Status Date / Time Penicillins Allergy Intermediate Verified 08/29/18 15:44 Home Medications: Ambulatory Orders Sevelamer Carbonate [Renvela -] 1,600 mg PO TID 01/27/18 traZODone HCL [Trazodone HCl] 50 mg PO HS 04/07/18 Pantoprazole Sodium 40 mg PO BID 05/04/18 Docusate Sodium [Stool Softener] 100 mg PO ASDIR 08/16/18 Simethicone [Gas-X] 125 mg PO ASDIR 08/16/18 Carvedilol 3.125 mg PO BID 08/18/18 Furosemide [Lasix] 40 mg PO DAILY 08/18/18 Anemia: Yes Asthma: No Cancer: No Cardiac Disorders: No CVA: No COPD: No CHF: No Dementia: No Diabetes: Yes (DIET CONTROLLED) Dialysis: Yes (t,th,sa) GI Disorders: Yes (gastic ulcer) Disorders: Yes (RENAL INSUFFICIENCY, HD permacath) HTN: Yes Hypercholesterolemia: No Kidney Stones: (KIDNEY DISEASE) Liver Disease: No Seizures: No Thyroid Disease: No - Surgical History Abdominal Surgery: (PD DIALYSIS SHUNT removed 08/21/18) - Immunization History Immunization Up to Date: Yes - Suicide/Smoking/Psychosocial Hx Smoking Status: No Smoking History: Never smoked Have you smoked in the past 12 months: No Number of Cigarettes Smoked Daily: 0 Information on smoking cessation initiated: No Hx Alcohol Use: No Drug/Substance Use Hx: No Substance Use Type: None Hx Substance Use Treatment: No Review of Systems - Review of Systems Constitutional: No: Chills, Fever Respiratory: No: Shortness of Breath Cardiac (ROS): No: Chest Pain, Palpitations ABD/GI: Yes: Abdominal Distended, Abdominal cramping. No: Blood Streaked Bowels , Constipated, Diarrhea, Nausea, Rectal Bleeding, Vomiting, Tarry Stools : No: Dysuria *Physical Exam - Vital Signs Last Vital Signs Temp Pulse Resp BP Pulse Ox 98.1 F 119 H 16 110/67 98 08/29/18 15:26 08/29/18 15:26 08/29/18 15:26 08/29/18 15:26 08/29/18 15:26 - Physical Exam General Appearance: Yes: Appropriately Dressed, Mild Distress HEENT: positive: Normal Voice Neck: positive: Supple Respiratory/Chest: positive: Lungs Clear, Normal Breath Sounds. negative: Respiratory Distress Cardiovascular: positive: S1, S2, Tachycardia Gastrointestinal/Abdominal: positive: Tender (diffusely, well healing incisions) , Distended Musculoskeletal: negative: CVA Tenderness Integumentary: positive: Dry, Warm Neurologic: positive: Fully Oriented, Alert, Normal Mood/Affect ED Treatment Course - LABORATORY CBC & Chemistry Diagram: 08/30/18 06:45 08/30/18 06:45 - RADIOLOGY Radiology Studies Ordered: Category Date Time Status ABDOMEN & PELVIS CT W/O CONTR [CT] Stat CT Scan 08/29/18 16:06 Ordered CHEST X-RAY PORTABLE* [RAD] Stat Radiology 08/29/18 16:06 Ordered Medical Decision Making - Medical Decision Making 08/29/18 16:12 53-year-old male, history of DM, HTN, CHF, prior ETOH abuse, GIB, anemia, ESRD, recently switched from peritoneal dialysis to hemodialysis (T/R/Sat via R subclavian catheter), last dialyzed Thursday, here w/ worsening abd pain. Pt was admitted to [facility] over a week ago for abd pain and found to have hepatic mass and significant amount of ascites on CT scan. During admission, had PD catheter removed 2/2 being unable to complete exchanges at home. During laporoscopic surgery, was found to have "gross metastatic" disease to R liver lobe (biopsy pending). Had ~2K ml of ascitic fluid removed (of note, no growth on cx 08/17). Was seen by GI who documented possible multifocal HCC (pt to f/u with liver specialist at [place]). Pt states after removal of his PD catheter, he had some abdominal pain that seems to be getting worse and now feels bloated. Also complaining of excessive belching and flatus. Having normal bowel movements with no bright red blood per rectum or melena. Denies nausea, vomiting, fever or chills. No chest pain, shortness of breath or palpitations. See exam Worsening abd pain Ddx many and includes SBO (in setting of recent surgery, though unlikely as +BM and no n/v) vs infection vs liver source (known ascites, liver mass w/ recent dx of ? HCC w/ pending biopsy) vs SBP (of note ascitic fluid neg for growth on cx 08/17/18), unlikely cardiac Pt tachy to and appears mildly uncomfortable w/ protuberant distended abd w/ well healing sx incisions -pain control -labs -CT -anticipate admission 08/29/18 18:25 Worsening LFTs on labs, WBC wnl. CT pending 08/29/18 19:00 Pt signed out to Dr Ramos pending CT and admission 08/29/18 19:08 *DC/Admit/Observation/Transfer Diagnosis at time of Disposition: Liver mass, Hepatocellular carcinoma, Ascites - Discharge Dispostion Disposition: AGAINST MEDICAL ADVICE Condition at time of disposition: Guarded - Referrals - Patient Instructions - Post Discharge Activity
[2018-08-29 16:33] LABS: BASO % 0.5 % (0-2.0); EOS % 1.8 % (0-4.5); HEMATOCRIT 33.5 % (35.4-49); HEMOGLOBIN 10.8 GM/dL (11.7-16.9); LYMPH % 9.5 % (8-40); MCH 32.9 pg (25.7-33.7); MCHC 32.1 g/dl (32.0-35.9); MEAN CELL VOLUME 102.4 fl (80-96); MEAN PLT VOLUME 9.3 fl (7.5-11.1); NEUT % 79.2 % (42.8-82.8); PLATELET COUNT 282 K/MM3 (134-434); RBC 3.27 M/mm3 (4.00-5.60); WHITE BLOOD COUNT 7.4 K/mm3 (4.0-10.0)
[2018-08-29] MEDS ORDERED: morphine CARPU-JECT 4 MG/1 ML DISP.SYRIN IVPUSH ONE (16:35)
[2018-08-29] MEDS ORDERED: morphine SULFATE 4 MG/ML VIAL ONE (16:43)
[2018-08-29 16:46] LABS: INR 1.09 (0.83-1.09); PROTHROMBIN TIME (PATIENT) 12.9 SEC (9.7-13.0)
[2018-08-29 17:20] LABS: ALBUMIN 2.1 g/dl (3.4-5.0); ALK PHOS 2143 U/L (45-117); ANION GAP 14 MMOL/L (8-16); BLOOD UREA NITROGEN 41 mg/dL (7-18); CALCIUM 7.6 mg/dL (8.5-10.1); CHLORIDE 101 mmol/L (98-107); CO2 22 mmol/L (21-32); GLUCOSE,RANDOM 102 mg/dL (74-106); LIPASE 357 U/L (73-393); POTASSIUM 3.7 mmol/L (3.5-5.1); SGOT/AST 399 U/L (15-37); SGPT/ALT 204 U/L (13-61); SODIUM 136 mmol/L (136-145)
[2018-08-29 17:21] LABS: CREATININE 7.8 mg/dL (0.55-1.3)
[2018-08-29] MEDS ORDERED: SODIUM CHLORIDE 500 ML IV STA (18:26)
[2018-08-29 18:51] LABS: ANISOCYTOSIS 1+; MACROCYTOSIS 1+; PLATELET ESTIMATE ADEQUATE
--- NOTE | 2018-08-29 19:14 | PDOC ---
*Physical Exam - Vital Signs Last Vital Signs Temp Pulse Resp BP Pulse Ox 98.1 F 119 H 16 110/67 98 08/29/18 15:26 08/29/18 15:26 08/29/18 15:26 08/29/18 15:26 08/29/18 15:26 - Physical Exam Comments: 08/29/18 19:14 Assumed care at 7:14 pm. <Ramesh Ramos - Last Filed: 08/29/18 19:14> - Vital Signs Last Vital Signs Temp Pulse Resp BP Pulse Ox 98.1 F 119 H 16 110/67 98 08/29/18 15:26 08/29/18 15:26 08/29/18 15:26 08/29/18 15:26 08/29/18 15:26 <Leila Mao - Last Filed: 08/30/18 00:21> ED Treatment Course - LABORATORY CBC & Chemistry Diagram: 08/29/18 16:05 08/29/18 16:05 - ADDITIONAL ORDERS Additional order review: Laboratory Results 08/29/18 08/29/18 08/29/18 16:05 16:05 16:05 PT with INR 12.90 INR 1.09 Sodium 136 Potassium 3.7 Chloride 101 Carbon Dioxide 22 Anion Gap 14 BUN 41 H Creatinine 7.8 H* Creat Clearance w eGFR 7.36 Random Glucose 102 Calcium 7.6 L Total Bilirubin 1.0 AST 399 H ALT 204 H Alkaline Phosphatase 2143 H Creatine Kinase 40 Troponin I < 0.02 Total Protein 6.0 L Albumin 2.1 L Lipase 357 Blood Type O POSITIVE Antibody Screen Negative 08/29/18 16:05 RBC 3.27 L MCV 102.4 H MCHC 32.1 RDW 19.0 H MPV 9.3 Neutrophils % 79.2 Lymphocytes % 9.5 Monocytes % 9.0 Eosinophils % 1.8 D Basophils % 0.5 - Medications Given in the ED: ED Medications Discontinued Medications Generic Name Dose Route Start Last Admin Trade Name Herveq PRN Reason Stop Dose Admin Morphine Sulfate 4 mg 08/29/18 16:35 08/29/18 16:47 Morphine Injection - IVPUSH 08/29/18 16:36 4 mg ONCE ONE Administration <Ramesh Ramos - Last Filed: 08/29/18 19:14> - LABORATORY CBC & Chemistry Diagram: 08/29/18 16:05 08/29/18 16:05 - ADDITIONAL ORDERS Additional order review: Laboratory Results 08/29/18 08/29/18 08/29/18 16:05 16:05 16:05 PT with INR 12.90 INR 1.09 Sodium 136 Potassium 3.7 Chloride 101 Carbon Dioxide 22 Anion Gap 14 BUN 41 H Creatinine 7.8 H* Creat Clearance w eGFR 7.36 Random Glucose 102 Calcium 7.6 L Total Bilirubin 1.0 AST 399 H ALT 204 H Alkaline Phosphatase 2143 H Creatine Kinase 40 Troponin I < 0.02 Total Protein 6.0 L Albumin 2.1 L Lipase 357 Blood Type O POSITIVE Antibody Screen Negative 08/29/18 16:05 RBC 3.27 L MCV 102.4 H MCHC 32.1 RDW 19.0 H MPV 9.3 Neutrophils % 79.2 Lymphocytes % 9.5 Monocytes % 9.0 Eosinophils % 1.8 D Basophils % 0.5 - Medications Given in the ED: ED Medications Discontinued Medications Generic Name Dose Route Start Last Admin Trade Name Freq PRN Reason Stop Dose Admin Sodium Chloride 500 mls @ 500 mls/hr 08/29/18 18:26 08/29/18 18:27 Normal Saline - IV 08/29/18 19:25 500 mls/hr ASDIR STA Administration Morphine Sulfate 4 mg 08/29/18 16:35 08/29/18 16:47 Morphine Injection - IVPUSH 08/29/18 16:36 4 mg ONCE ONE Administration <Leila Mao - Last Filed: 08/30/18 00:21> Medical Decision Making - Medical Decision Making 08/29/18 20:42 Referring Physician: DANIELLE FREEMAN Patient Name: JUDITH VALLE THIS IS A PRELIMINARY REPORT FROM [facility] DATE OF SERVICE: 2018-08-29 19:23:39 IMAGES: [id number] EXAM: CT ABDOMEN AND PELVIS WITH IV CONTRAST HISTORY: Abdominal pain COMPARISON: Report OF CT of the abdomen and pelvis performed on August 15, 2018 as the images are not available at the time of dictation. FINDINGS: Lower Chest: Subsegmental atelectasis of the lower lobes with trace bilateral pleural effusions. Abdomen: Liver:: Hepatic cirrhosis with exophytic mass arising from the inferior right hepatic lobe. Bile Ducts: Within normal limits. Gallbladder:: Cholelithiasis. Pancreas:: Within normal limits. Spleen:: Within normal limits. Adrenals: Within normal limits. Kidneys: Atrophic kidneys without evidence of hydronephrosis or nephrolithiasis. Stomach:: Small sliding hiatal hernia. Bowel:: No evidence of small bowel obstruction or mass. Large diffuse ascites. Pelvis: Reproductive Organs: Within normal limits. Bladder: Mild diffuse thickening of the bladder likely secondary to underdistention. Please clinically with urinalysis. Vessels: Aorta: Atherosclerotic calcification of the aorta without aneurysm or dissection. Retroperitoneum: Within normal limits. Bones: : No suspicious osseous lesions. Thoracolumbar spondylosis. THIS DOCUMENT HAS BEEN ELECTRONICALLY SIGNED 08/29/18 20:47 Pt will be admitted <Leila Mao - Last Filed: 08/30/18 00:21> *DC/Admit/Observation/Transfer <Ramesh Ramos - Last Filed: 08/29/18 19:14> <Leila Mao - Last Filed: 08/30/18 00:21> Diagnosis at time of Disposition: Liver mass, Hepatocellular carcinoma Ascites Qualifiers: Ascites type: other type Qualified Code(s): R18.8 - Other ascites - Discharge Dispostion Condition at time of disposition: Guarded
[2018-08-29] MEDS ORDERED: SIMETHICONE 125 MG PO SCH (22:15)
[2018-08-29] MEDS ORDERED: DOCUSATE SODIUM 100 MG CAPSULE (FP) PO SCH (22:15)
--- NOTE | 2018-08-29 23:38 | HP ---
CHIEF COMPLAINT: abdominal pain PCP: Dr. Becerra HISTORY OF PRESENT ILLNESS: 53-year-old male, history of DM, HTN, CHF, prior ETOH abuse, GIB, anemia, ESRD, recently switched from peritoneal dialysis to hemodialysis (T/R/Sat via R subclavian catheter), last dialyzed thursday, c/o worsening abd pain and bloating for last few days. Pt was admitted to [facility] over a week ago for abd pain and found to have hepatic mass and significant amount of ascites on CT scan, s/p biopsy hepatic mass. During admission, had PD catheter removed 2/2 being unable to complete exchanges at home. During laporoscopic surgery, was found to have "gross metastatic" disease to R liver lobe (biopsy pending). Had ~2K ml of ascitic fluid removed (of note, no growth on cx 08/17). Was seen by GI who documented possible multifocal HCC (pt to f/u with liver specialist at [place]) . Pt states after removal of his PD catheter, he had some abdominal pain that seems to be getting worse. ER course was notable for: (1) morphine (2) abdominal CT (3) Recent Travel: no PAST MEDICAL HISTORY: PAST SURGICAL HISTORY: Social History: Smoking: no Alcohol: no Drugs: no Family History: Allergies Penicillins Allergy (Intermediate, Verified 08/29/18 15:44) patient states that he has rash HOME MEDICATIONS: Home Medications Medication Instructions Recorded Sevelamer Carbonate [Renvela -] 1,600 mg PO TID 01/27/18 traZODone HCL [Trazodone HCl] 50 mg PO HS 04/07/18 Pantoprazole Sodium 40 mg PO BID 05/04/18 Docusate Sodium [Stool Softener] 100 mg PO ASDIR 08/16/18 Simethicone [Gas-X] 125 mg PO ASDIR 08/16/18 Carvedilol 3.125 mg PO BID 08/18/18 Furosemide [Lasix] 40 mg PO DAILY 08/18/18 REVIEW OF SYSTEMS CONSTITUTIONAL: Absent: fever, chills, diaphoresis, generalized weakness, malaise, loss of appetite, weight change HEENT: Absent: rhinorrhea, nasal congestion, throat pain, throat swelling, difficulty swallowing, mouth swelling, ear pain, eye pain, visual changes CARDIOVASCULAR: Absent: chest pain, syncope, palpitations, irregular heart rate, lightheadedness , peripheral edema RESPIRATORY: Absent: cough, shortness of breath, dyspnea with exertion, orthopnea, wheezing, stridor, hemoptysis GASTROINTESTINAL: Absent: nausea, vomiting, diarrhea, constipation, melena, hematochezia Present- abdominal pain, abdominal distension, GENITOURINARY: Absent: dysuria, frequency, urgency, hesitancy, hematuria, flank pain, genital pain MUSCULOSKELETAL: Absent: myalgia, arthralgia, joint swelling, back pain, neck pain SKIN: Absent: rash, itching, pallor HEMATOLOGIC/IMMUNOLOGIC: Absent: easy bleeding, easy bruising, lymphadenopathy, frequent infections ENDOCRINE: Absent: unexplained weight gain, unexplained weight loss, heat intolerance, cold intolerance NEUROLOGIC: Absent: headache, focal weakness or paresthesias, dizziness, unsteady gait, seizure, mental status changes, bladder or bowel incontinence PSYCHIATRIC: Absent: anxiety, depression, suicidal or homicidal ideation, hallucinations. PHYSICAL EXAMINATION Vital Signs - 24 hr 08/29/18 08/29/18 15:26 22:21 Temperature 98.1 F 98.9 F Pulse Rate 119 H Pulse Rate [ 99 H Right Radial] Respiratory 16 20 Rate Blood Pressure 110/67 Blood Pressure 136/70 [Left Arm] O2 Sat by Pulse 98 100 Oximetry (%) GENERAL: Awake, alert, and fully oriented, in no acute distress. HEAD: Normal with no signs of trauma. EYES: right eye opaque, blind EARS, NOSE, THROAT: Ears normal, nares patent, oropharynx clear without exudates. Moist mucous membranes. NECK: Normal range of motion, supple without lymphadenopathy, JVD, or masses. LUNGS: Breath sounds equal, clear to auscultation bilaterally. No wheezes, and no crackles. No accessory muscle use. CHEST- right subclavian HD catheter HEART: Regular rate and rhythm, normal S1 and S2 without murmur, rub or gallop. ABDOMEN:distended, bs+, +fluid wave mild diffuse tenderness on palpation. Scars s/p laparoscopic surgery MUSCULOSKELETAL: Normal range of motion at all joints. No bony deformities or tenderness. No CVA tenderness. UPPER EXTREMITIES: 2+ pulses, warm, well-perfused. No cyanosis. No clubbing. No peripheral edema. LOWER EXTREMITIES: 2+ pulses, warm, well-perfused. No calf tenderness. No peripheral edema. NEUROLOGICAL: Normal speech. PSYCHIATRIC: Cooperative. Good eye contact. Appropriate mood and affect. SKIN: erythematous, papular lesions on upper, lower extremities, back, chest Laboratory Results - last 24 hr 08/29/18 08/29/18 08/29/18 16:05 16:05 16:05 WBC 7.4 RBC 3.27 L Hgb 10.8 L Hct 33.5 L MCV 102.4 H MCH 32.9 MCHC 32.1 RDW 19.0 H Plt Count 282 MPV 9.3 Absolute Neuts (auto) 5.8 Neutrophils % 79.2 Neutrophils % (Manual) 85.0 H Lymphocytes % 9.5 Lymphocytes % (Manual) 8.0 D Monocytes % 9.0 Monocytes % (Manual) 6 Eosinophils % 1.8 D Eosinophils % (Manual) 1.0 D Basophils % 0.5 Nucleated RBC % 0 Hypochromia 1+ Platelet Estimate Adequate Platelet Comment No clumping noted Anisocytosis 1+ Macrocytosis 1+ PT with INR 12.90 INR 1.09 Sodium Potassium Chloride Carbon Dioxide Anion Gap BUN Creatinine Creat Clearance w eGFR Random Glucose Calcium Total Bilirubin AST ALT Alkaline Phosphatase Creatine Kinase Troponin I Total Protein Albumin Lipase Blood Type O POSITIVE Antibody Screen Negative 08/29/18 16:05 WBC RBC Hgb Hct MCV MCH MCHC RDW Plt Count MPV Absolute Neuts (auto) Neutrophils % Neutrophils % (Manual) Lymphocytes % Lymphocytes % (Manual) Monocytes % Monocytes % (Manual) Eosinophils % Eosinophils % (Manual) Basophils % Nucleated RBC % Hypochromia Platelet Estimate Platelet Comment Anisocytosis Macrocytosis PT with INR INR Sodium 136 Potassium 3.7 Chloride 101 Carbon Dioxide 22 Anion Gap 14 BUN 41 H Creatinine 7.8 H* Creat Clearance w eGFR 7.36 Random Glucose 102 Calcium 7.6 L Total Bilirubin 1.0 AST 399 H ALT 204 H Alkaline Phosphatase 2143 H Creatine Kinase 40 Troponin I < 0.02 Total Protein 6.0 L Albumin 2.1 L Lipase 357 Blood Type Antibody Screen CT of abdomen/pelvis reviewed. EKG reviewed. ASSESSMENT/PLAN: #Liver cirrhosis, Abdominal pain, ascites, should r/o SBP. Pain likely secondary to abdominal distention. Previous ascitic culture neg. -GI consult - DR. Beavers -IR consult for paracentesis therapeutic and diagnostic - send cell count, culture to r/o SBP -cover with ciprofloxacin empirically pending ascitic w/u (penicillin allergy) -c/w furosemide -send lactate #Possible HCC- biopsy performed -Oncology consult- Dr. Lane #DM- glucose controlled #HTN/CHF -carvedilol #ESRD- HD through right subclavian catheter -renal consult for reinstitution of HD #DVT ppx- heparin sc Visit type - Emergency Visit Emergency Visit: Yes ED Registration Date: 08/29/18 Care time: The patient presented to the Emergency Department on the above date and was hospitalized for further evaluation of their emergent condition. - New Patient This patient is new to me today: Yes Date on this admission: 08/30/18 - Critical Care Critical Care patient: No
[2018-08-30] MEDS ORDERED: CEFTRIAXONE 1 GM in DEXTROSE 5%-WATER - 50 ML IVPB ONE (00:15)
[2018-08-30] MEDS ORDERED: traZODone HCL 50 MG TABLET (FP) PO ONE (00:43)
[2018-08-30] MEDS ORDERED: MORPHINE SULFATE 2 MG/ML VIAL IVPUSH PRN (00:44)
[2018-08-30] MEDS ORDERED: morphine SULFATE 4 MG/ML VIAL IVPUSH ONE (00:46)
[2018-08-30] MEDS: HEPARIN NA (PORCINE) 5,000 UNITS/ML 1ML VIAL SQ SCH ×2 (06:30→17:45)
[2018-08-30 08:30] LABS: ANION GAP 12 MMOL/L (8-16); BLOOD UREA NITROGEN 46 mg/dL (7-18); CALCIUM 7.7 mg/dL (8.5-10.1); CHLORIDE 100 mmol/L (98-107); CO2 24 mmol/L (21-32); GLUCOSE,RANDOM 87 mg/dL (74-106); POTASSIUM 3.9 mmol/L (3.5-5.1); SODIUM 135 mmol/L (136-145)
[2018-08-30 08:33] LABS: CREATININE 8.1 mg/dL (0.55-1.3)
[2018-08-30 08:47] LABS: HEMATOCRIT 33.3 % (35.4-49); MCH 31.2 pg (25.7-33.7); MEAN CELL VOLUME 104.1 fl (80-96); MEAN PLT VOLUME 9.7 fl (7.5-11.1); PLATELET COUNT 277 K/MM3 (134-434); RDW 19.2 % (11.9-15.9); WHITE BLOOD COUNT 7.6 K/mm3 (4.0-10.0)
--- NOTE | 2018-08-30 08:55 | PN ---
Progress Note, Physician Chief Complaint: AWAKE ALERT EVENTS AND NOTES REVIEWED - Current Medication List Current Medications: Active Medications Carvedilol (Coreg -) 3.125 mg PO BID KRISTEN Furosemide (Lasix -) 40 mg PO DAILY [facility] Heparin Sodium (Porcine) (Heparin -) 5,000 unit SQ TID [facility] Last Admin: 08/30/18 06:30 Dose: Not Given Morphine Sulfate (Morphine Sulfate) 2 mg IVPUSH Q6H PRN PRN Reason: PAIN LEVEL 1-5 Pantoprazole Sodium (Protonix -) 40 mg PO BID KRISTEN Sevelamer Carbonate (Renvela -) 1,600 mg PO TIDCM KRISTEN Trazodone HCl (Desyrel -) 50 mg PO HS [facility] - Objective Vital Signs: Vital Signs Temperature 97.8 F 08/30/18 06:00 Pulse Rate 95 H 08/30/18 06:00 Respiratory Rate 18 08/30/18 06:00 Blood Pressure 129/81 08/30/18 06:00 O2 Sat by Pulse Oximetry (%) 100 08/29/18 22:21 Constitutional: Yes: Mild Distress Eyes: Yes: WNL HENT: Yes: WNL Neck: Yes: WNL Cardiovascular: Yes: WNL Respiratory: Yes: WNL Gastrointestinal: Yes: Ascites, Distention Genitourinary: No: WNL Musculoskeletal: Yes: WNL Extremities: Yes: WNL Edema: Yes Edema: LLE: Trace, RLE: Trace Peripheral Pulses WNL: Yes Integumentary: Yes: WNL Wound/Incision: Yes: Clean/Dry Neurological: Yes: WNL ...Motor Strength: WNL Psychiatric: Yes: WNL Labs: CBC, BMP 08/30/18 06:45 08/30/18 06:45 INR, PTT INR 1.09 (0.83-1.09) 08/29/18 16:05 Problem List - Problems (1) Ascites Code(s): R18.8 - OTHER ASCITES Qualifiers: Ascites type: other type Qualified Code(s): R18.8 - Other ascites (2) Hepatocellular carcinoma Code(s): C22.0 - LIVER CELL CARCINOMA (3) Liver mass Code(s): R16.0 - HEPATOMEGALY, NOT ELSEWHERE CLASSIFIED (4) Abdominal pressure Code(s): R10.9 - UNSPECIFIED ABDOMINAL PAIN (5) ESRD (end stage renal disease) on dialysis Code(s): N18.6 - END STAGE RENAL DISEASE; Z99.2 - DEPENDENCE ON RENAL DIALYSIS Assessment/Plan ESRD ON HD NEPHROLOGY EVAL PARACENTESIS WITH INTERVENTIONAL RADIOLOGY GI F/U LIVER DISEASE PAIN CONTROL
[2018-08-30] MEDS: SEVELAMER CARBONATE 800 MG TAB (FP) PO SCH ×3 (09:00→18:35)
[2018-08-30] MEDS ORDERED: CARVEDILOL 3.125 MG TABLET (FP) PO SCH (10:00)
[2018-08-30] MEDS ORDERED: PANTOPRAZOLE 40 MG TABLET (FP) PO SCH (10:00)
[2018-08-30] MEDS ORDERED: FUROSEMIDE 40 MG TABLET (FP) PO SCH (10:00)
--- NOTE | 2018-08-30 10:59 | CON.GI ---
Consult Consult Specialty:: GI Referred by:: Dr. Martín Carlton Reason for Consultation:: Ascites - History of Present Illness Chief Complaint: "fluid" History of Present Illness: 53M admitted for evaluation of abdominal distention. He had CT scan of the abdomen without contrast 08/14/18. US at that time failed to reveal biliary ductal dilatation. the CT scan also revealed liver masses and a large amount of ascites. He had an AFP tumor marker of 48,417 05/29 and 14,935 in 2017 and most recently 07/29 AFP tumor marker was > 70K. He has apparently been non complaint with follow-up. Liver chemistries have been abnormal for quite some time. He had an EGD performed by Dr. Alex Denis 01/27 revealing antral and duodenal ulcers. He denies a family history of cancer. He had PD catheter removed surgically during last admission as well. I called the pathoilogy dept. The liver biopsy has not been signed out as of yet. - History Source History Provided By: Patient - Past Medical History Cardio/Vascular: Yes: HTN, Hyperlipdemia Gastrointestinal: Yes: GI Bleed (s/p EGD 01/26: ) Renal/: Yes: Renal Failure, Renal Inusuff, Hemodialysis Heme/Onc: Yes: Cancer (Suspected multifocal HCC) Endocrine: Yes: Diabetes Mellitus - Past Surgical History Past Surgical History: Yes: AV Fistula/Graft - Alcohol/Substance Use Hx Alcohol Use: Yes (socially) History of Substance Use: reports: None - Smoking History Smoking history: Never smoked Have you smoked in the past 12 months: No Aproximately how many cigarettes per day: 0 - Social History ADL: Independent Place of : [facility] History of Recent Travel: No Home Medications - Allergies Allergies/Adverse Reactions: Allergies Allergy/AdvReac Type Severity Reaction Status Date / Time Penicillins Allergy Intermediate Verified 08/29/18 15:44 - Home Medications Home Medications: Ambulatory Orders Sevelamer Carbonate [Renvela -] 1,600 mg PO TID 01/27/18 traZODone HCL [Trazodone HCl] 50 mg PO HS 04/07/18 Pantoprazole Sodium 40 mg PO BID 05/04/18 Docusate Sodium [Stool Softener] 100 mg PO ASDIR 08/16/18 Simethicone [Gas-X] 125 mg PO ASDIR 08/16/18 Carvedilol 3.125 mg PO BID 08/18/18 Furosemide [Lasix] 40 mg PO DAILY 08/18/18 Family Disease History - Family Disease History Family Disease History: Diabetes: Brother (2, 1 with CVA, 1 healthy), Heart Disease: Father (: 62: CHF), Other: Father, Mother (Alive: wasnt clear as to her med. problems), Brother Review of Systems - Review of Systems Constitutional: denies: Chills, Fever Cardiovascular: denies: Chest Pain Respiratory: denies: SOB Gastrointestinal: reports: Bloating. denies: Abdominal Pain Physical Exam-GI Vital Signs: Vital Signs Temperature 97.2 F L 08/30/18 09:55 Pulse Rate 94 H 08/30/18 09:55 Respiratory Rate 18 08/30/18 09:55 Blood Pressure 125/82 08/30/18 09:55 O2 Sat by Pulse Oximetry (%) 100 08/29/18 22:21 Constitutional: Yes: Calm Eyes: No: Sclera Icterus Cardiovascular: Yes: Regular Rate and Rhythm. No: Murmur Respiratory: Yes: Diminished (at bases bilaterally) Gastrointestinal Inspection: Yes: Ascites, Distention, Scars (trochar scars and mid abdominal surgical scar) ...Auscultate: Yes: Normoactive Bowel Sounds ...Palpate: No: Tenderness ...Percussion: No: Tympanitic Edema: No (No LE edema) Neurological: Yes: Alert. No: Asterix[facility] Labs: CBC, BMP 08/30/18 06:45 08/30/18 06:45 INR, PTT INR 1.09 (0.83-1.09) 08/29/18 16:05 Hepatic Panel Total Bilirubin 1.0 mg/dL (0.2-1) 08/29/18 16:05 AST 399 U/L (15-37) H 08/29/18 16:05 ALT 204 U/L (13-61) H 08/29/18 16:05 Alkaline Phosphatase 2143 U/L (45-117) H 08/29/18 16:05 Albumin 2.1 g/dl (3.4-5.0) L 08/29/18 16:05 Problem List - Problems (1) Ascites Assessment/Plan: Reviewed CT scan. Does not apepar to be massive abdominal ascites. US paracentesis by IR. Send for cell count w/ diff Sodium controlled diet Patient aware that this can recur. Will likely need palliative repeat therapeutic serial paracenteses vs. IP drain Code(s): R18.8 - OTHER ASCITES Qualifiers: Ascites type: other type Qualified Code(s): R18.8 - Other ascites (2) Hepatocellular carcinoma Assessment/Plan: Spoke with pathology. Awaiting pathology results from liver biopsy Oncology evaluation Code(s): C22.0 - LIVER CELL CARCINOMA
--- NOTE | 2018-08-30 13:08 | PN ---
Progress Note (short form) - Note Progress Note: Discussed liver biopsy report with Dr. Morrow: Appears to be adnocarcinoma, mod to poorly differntiated and most consistent with cholangiocarcinoma. Staining not suggestive of HCC. Intrahepatic cholangiocarcinoma / Metastatic GB ca would be in differential. Oncology evaluation Problem List - Problems (1) Ascites Code(s): R18.8 - OTHER ASCITES Qualifiers: Ascites type: other type Qualified Code(s): R18.8 - Other ascites (2) Hepatocellular carcinoma Code(s): C22.0 - LIVER CELL CARCINOMA
[2018-08-30] MEDS ORDERED: SODIUM CHLORIDE 250 ML IV PRN (14:16)
[2018-08-30] MEDS ORDERED: EPOETIN ALFA 2,000 UNIT/1 ML VIAL IVPUSH ONE (15:00)
[2018-08-30] MEDS ORDERED: EPOETIN ALFA 3,000 UNIT/1 ML ML IVPUSH ONE (15:00)
--- NOTE | 2018-08-30 16:52 | CONSULT ---
Consult Consult Specialty:: Nephrology Reason for Consultation:: ESRD - History of Present Illness Chief Complaint: abdominal pain History of Present Illness: Pt is a 53 year old male with pmhx of esrd on HD who presented to the ER with abdominal pain. He is being worked up for liver malignancy. He was taken for paracentesis. He was last dialyzed on Thursday. He denies shortness of breath. he feels that his abdominal pain is improved after pracentesis. he denies shortness of breath. - Past Medical History Cardio/Vascular: Yes: HTN, Hyperlipdemia Gastrointestinal: Yes: GI Bleed (s/p EGD 01/26: ) Renal/: Yes: Renal Failure, Renal Inusuff, Hemodialysis Endocrine: Yes: Diabetes Mellitus - Past Surgical History Past Surgical History: Yes: AV Fistula/Graft - Alcohol/Substance Use Hx Alcohol Use: Yes (socially) History of Substance Use: reports: None - Smoking History Smoking history: Never smoked Have you smoked in the past 12 months: No Aproximately how many cigarettes per day: 0 - Social History ADL: Independent History of Recent Travel: No Home Medications - Allergies Allergies/Adverse Reactions: Allergies Allergy/AdvReac Type Severity Reaction Status Date / Time Penicillins Allergy Intermediate Verified 08/29/18 15:44 - Home Medications Home Medications: Ambulatory Orders Sevelamer Carbonate [Renvela -] 1,600 mg PO TID 01/27/18 traZODone HCL [Trazodone HCl] 50 mg PO HS 04/07/18 Pantoprazole Sodium 40 mg PO BID 05/04/18 Docusate Sodium [Stool Softener] 100 mg PO ASDIR 08/16/18 Simethicone [Gas-X] 125 mg PO ASDIR 08/16/18 Carvedilol 3.125 mg PO BID 08/18/18 Furosemide [Lasix] 40 mg PO DAILY 08/18/18 Family Disease History - Family Disease History Family Disease History: Diabetes: Brother (2, 1 with CVA, 1 healthy), Heart Disease: Father (: 62: CHF), Other: Father, Mother (Alive: wasnt clear as to her med. problems), Brother Review of Systems - Review of Systems Constitutional: reports: Malaise Eyes: reports: No Symptoms HENT: reports: No Symptoms Neck: reports: No Symptoms Cardiovascular: reports: No Symptoms Respiratory: reports: No Symptoms Gastrointestinal: reports: Abdominal Pain Musculoskeletal: reports: No Symptoms Integumentary: reports: No Symptoms Neurological: reports: No Symptoms Endocrine: reports: No Symptoms Physical Exam Vital Signs: Vital Signs Temperature 98.1 F 08/30/18 14:35 Pulse Rate 90 08/30/18 15:40 Respiratory Rate 18 08/30/18 15:40 Blood Pressure 97/70 08/30/18 15:40 O2 Sat by Pulse Oximetry (%) 100 08/30/18 15:00 Constitutional: Yes: Calm Eyes: Yes: Conjunctiva Clear HENT: Yes: Atraumatic Cardiovascular: Yes: S1, S2 Respiratory: Yes: CTA Bilaterally Gastrointestinal: Yes: Normal Bowel Sounds, Soft Musculoskeletal: Yes: WNL Edema: No Neurological: Yes: Oriented Psychiatric: Yes: Oriented Labs: CBC, BMP 08/30/18 06:45 08/30/18 06:45 Imaging - Results Cat Scan: Report Reviewed Problem List - Problems (1) Ascites Code(s): R18.8 - OTHER ASCITES Qualifiers: Ascites type: other type Qualified Code(s): R18.8 - Other ascites (2) Liver mass Code(s): R16.0 - HEPATOMEGALY, NOT ELSEWHERE CLASSIFIED (3) ESRD (end stage renal disease) on dialysis Code(s): N18.6 - END STAGE RENAL DISEASE; Z99.2 - DEPENDENCE ON RENAL DIALYSIS Assessment/Plan Current Medications Generic Name Dose Route Start Last Admin Trade Name Freq PRN Reason Stop Dose Admin Carvedilol 3.125 mg 08/30/18 10:00 08/30/18 09:52 Coreg - PO 3.125 mg BID KRISTEN Administration Furosemide 40 mg 08/30/18 10:00 08/30/18 09:52 Lasix - PO 40 mg DAILY KRISTEN Administration Heparin Sodium (Porcine) 5,000 unit 08/30/18 06:00 08/30/18 06:30 Heparin - SQ Not Given TID KRISTEN Sodium Chloride 250 mls @ 3,000 mls/hr 08/30/18 14:16 Normal Saline - IV 08/31/18 14:16 PRN PRN Hypotension during Dialysis Morphine Sulfate 2 mg 08/30/18 00:44 08/30/18 09:51 Morphine Sulfate IVPUSH 2 mg Q6H PRN Administration PAIN LEVEL 1-5 Pantoprazole Sodium 40 mg 08/30/18 10:00 08/30/18 09:52 Protonix - PO 40 mg BID KRISTEN Administration Sevelamer Carbonate 1,600 mg 08/30/18 08:00 08/30/18 12:00 Renvela - PO 1,600 mg TIDCM KRISTEN Administration Trazodone HCl 50 mg 08/30/18 22:00 Desyrel - PO HS KRISTEN Impression 1. ESRD 2. DM 3. ascites 4. HTN 5. obesity 6. anemia 7. iron deficiency 8. CHF 9. anemia 10. non compliance 11. liver mass 12. hx GI bleed 13. diabetic nephropathy 14. adenocarcinoma Plan - HD today - GI input appreciated - oncology eval - will follow
[2018-08-30] MEDS: ALBUMIN HUMAN 25% 12.5 GM/50 ML VIAL IVPB SCH ×2 (17:54→17:55)
[2018-08-30 18:22] VITALS: BP 122/77; PULSE 99; TEMP 98.7
--- NOTE | 2018-08-30 18:29 | EKG ---
Test Reason : Blood Pressure : / mmHG Vent. Rate : 103 BPM Atrial Rate : 103 BPM P-R Int : 148 ms QRS Dur : 092 ms QT Int : 376 ms P-R-T Axes : 027 -52 037 degrees QTc Int : 492 ms SINUS TACHYCARDIA LEFT ANTERIOR FASCICULAR BLOCK ABNORMAL ECG WHEN COMPARED WITH ECG OF 16-AUG-2018 11:35, NO SIGNIFICANT CHANGE WAS FOUND Confirmed by LAURA LEWIS MD ([id number]) on 08/30/2018 6:29:05 PM Referred By: Confirmed By:LAURA LEWIS MD
[2018-08-30] MEDS ORDERED: traZODone HCL 50 MG TABLET (FP) PO SCH (22:00)
== END 2018-08-30 18:30 | disposition left against medical advice (07) | DRG 947 ==
LOC: JER 15:25 → INTOOBSV 21:10 → JERBED 21:10 → J7W 23:24 → OBSVTOIN 08-30 15:05
PROVIDERS: ADMIT Internal Medicine; ATTEND Family Medicine
PROC: 0W9G3ZX Drainage of Peritoneal Cavity, Percutaneous Approach, Diagnostic (ICD-10-PCS; principal; 2018-08-30)
DX: R18.8 Other ascites (principal); N18.6 End stage renal disease; I13.2 Hypertensive heart and chronic kidney disease with heart failure and with stage 5 chronic kidney disease, or end stage renal disease; C22.0 Liver cell carcinoma; E11.22 Type 2 diabetes mellitus with diabetic chronic kidney disease; D64.9 Anemia, unspecified; I50.9 Heart failure, unspecified; Z99.2 Dependence on renal dialysis; Z88.0 Allergy status to penicillin; K74.60 Unspecified cirrhosis of liver; E66.9 Obesity, unspecified; D50.9 Iron deficiency anemia, unspecified; E11.21 Type 2 diabetes mellitus with diabetic nephropathy; Z91.19 Patient's noncompliance with other medical treatment and regimen; Z68.30 Body mass index [BMI] 30.0-30.9, adult
CPT/HCPCS: 36415; 71045-TC-FY; 74176-TC; 76942-TC; 80048; 80053; 82550; 83690; 84484; 85025; 85027; 85610; 86850; 86900; 86901; 93005; 93010; 99285-25; G0378; J0885

== ENCOUNTER 2018-09-03 13:44 | Inpatient (IN) | payer BC ==
--- NOTE | 2018-09-03 14:37 | PDOC ---
Attending Attestation - Resident Resident Name: Margaret Navarro - ED Attending Attestation I have performed the following: I have examined & evaluated the patient, The case was reviewed & discussed with the resident, I agree w/resident's findings & plan, Exceptions are as noted - HPI HPI: 09/03/18 15:06 53y M hx of DM, HTN, CHF, GIB, ESRD (T,Th,Sa), recent episodes of acetes s/p removal, sp liver bx showing possible hepamtic cholangeocarcinoma (pt is not aware yet, has appt with [facility] on Sep 15), presents with worsening abd distension. pt had several recent drainage of taps with removal of 3-5L of fluid. Pt notes he has been having increased LLQ pain sp peritoneal dialysis cather removal. Denies any fever/chills, n/v, cp, sob, back pain, dysuria, diarrhea. GENERAL: The patient is awake, alert, and fully oriented, Nontoxic - in no acute distress. HEAD: Normocephalic, atraumatic. EYES: extraocular movements intact, sclera anicteric, conjunctiva clear. ENT: Normal voice, Moist mucous membranes. NECK: Normal range of motion, supple LUNGS: Breath sounds equal, clear to auscultation bilaterally. No wheezes, no rhonchi, no rales. HEART: Regular rate and rhythm, normal S1 and S2 without murmur, rub or gallop. ABDOMEN: several healing scars, with slight erythema, nontender, no discharge, not warm to palpation. mild LLQ tenderness, no rebound/guarding, +fluid waves. no cva tenderness EXTREMITIES: Normal range of motion, trace edema. NEUROLOGICAL: No facial assymetry, Normal speech, PSYCH: Normal mood, normal affect. SKIN: Warm, Dry, normal turgor, will obtain CT abdomen to eval abd pain suspect his distension is econdary to acetic fluid accumulation no fever to suggest sbp will ck labs freedom lreassess - Physicial Exam PE: 09/10/18 06:39 see above - Medical Decision Making 09/10/18 06:39 viraj frey
[2018-09-03] MEDS ORDERED: morphine CARPU-JECT 2 MG/1 ML DISP.SYRIN IVPUSH ONE (15:23)
--- NOTE | 2018-09-03 15:39 | PDOC ---
History of Present Illness - General Chief Complaint: Pain, Acute Stated Complaint: ABD PAIN Time Seen by Provider: 09/03/18 14:27 - History of Present Illness Initial Comments: 09/03/18 16:58 Patient is a 53 year old male with past medical history of DM, HTN, CHF, prior EtOH abuse, cirrhosis, GIB, anemia, ESRD on HD (TThS), metastatic hepatic mass s /p biopsy (08/20/18), presented with worsening abdominal pain and distension. On 08/20, patient had paracentesis, and underwent diagnostic laparoscopy, liver biopsy of right liver nodule and removal of peritoneal dialysis catheter. Patient was then seen on 08/30 where he left AMA, after having paracentesis and hemodialysis. Today, patient presents with worsening abdominal pain, worst on the LLQ, as well as abdominal distension. Denies fever, chills, headache, dizziness, nausea, vomiting, chest pain, SOB, palpitations, diarrhea, constipation. Past History - Past Medical History Allergies/Adverse Reactions: Allergies Allergy/AdvReac Type Severity Reaction Status Date / Time Penicillins Allergy Intermediate Verified 08/29/18 15:44 Home Medications: Ambulatory Orders Sevelamer Carbonate [Renvela -] 1,600 mg PO TID 01/27/18 traZODone HCL [Trazodone HCl] 50 mg PO HS 04/07/18 Pantoprazole Sodium 40 mg PO BID 05/04/18 Docusate Sodium [Stool Softener] 100 mg PO ASDIR 08/16/18 Simethicone [Gas-X] 125 mg PO ASDIR 08/16/18 Carvedilol 3.125 mg PO BID 08/18/18 Furosemide [Lasix] 40 mg PO DAILY 08/18/18 Anemia: Yes Asthma: No Cancer: No Cardiac Disorders: No CVA: No COPD: No CHF: No Dementia: No Diabetes: Yes (DIET CONTROLLED) Dialysis: Yes (,,) GI Disorders: Yes (gastic ulcer) Disorders: Yes (RENAL INSUFFICIENCY, HD permacath) HTN: Yes Hypercholesterolemia: No Kidney Stones: (KIDNEY DISEASE) Liver Disease: No Seizures: No Thyroid Disease: No - Surgical History Abdominal Surgery: (PD DIALYSIS SHUNT removed 08/21/18) - Immunization History Immunization Up to Date: Yes - Suicide/Smoking/Psychosocial Hx Smoking Status: No Smoking History: Smoker current status UNK Have you smoked in the past 12 months: No Number of Cigarettes Smoked Daily: 0 Hx Alcohol Use: No Drug/Substance Use Hx: No Substance Use Type: None Hx Substance Use Treatment: No Review of Systems - Review of Systems Constitutional: No: Chills, Fever, Night Sweats, Weakness HEENTM: No: Blurred Vision, Double Vision, Nose Congestion, Difficulty Swallowing Respiratory: No: Cough, Shortness of Breath Cardiac (ROS): No: Chest Pain, Edema, Palpitations ABD/GI: Yes: Abdominal Distended, Abdominal cramping. No: Constipated, Diarrhea , Nausea, Vomiting : No: Burning, Dysuria *Physical Exam - Vital Signs Last Vital Signs Temp Pulse Resp BP Pulse Ox 98.1 F 106 H 18 104/71 100 09/03/18 14:13 09/03/18 14:13 09/03/18 14:13 09/03/18 14:13 09/03/18 14:13 - Physical Exam General Appearance: Yes: Nourished, Appropriately Dressed. No: Apparent Distress HEENT: positive: EOMI, ENEDINA, Normal ENT Inspection Neck: positive: Trachea midline, Normal Thyroid, Supple Respiratory/Chest: positive: Lungs Clear, Normal Breath Sounds Cardiovascular: positive: Regular Rhythm, Regular Rate, S1, S2 Vascular Pulses: Dorsalis-Pedis (R): 2+, Doralis-Pedis (L): 2+ Gastrointestinal/Abdominal: positive: Normal Bowel Sounds, Tender, Distended Musculoskeletal: positive: Normal Inspection, CVA Tenderness Neurologic: positive: enamel burner II-XII NML intact, Fully Oriented, Alert, Normal Mood/ Affect, Normal Response, Motor Strength 5/5 ED Treatment Course - RADIOLOGY Radiology Studies Ordered: Category Date Time Status ABDOMEN & PELVIS CT W/O CONTR [CT] Stat CT Scan 09/03/18 15:17 Ordered CHEST - PA [RAD] Stat Radiology 09/03/18 15:17 Ordered Medical Decision Making - Medical Decision Making 09/03/18 15:31 Patient is a 53 year old male with past medical history of DM, HTN, CHF, prior EtOH abuse, cirrhosis, GIB, anemia, ESRD on HD (TThS), metastatic hepatic mass s /p biopsy (08/20/18), presented with worsening abdominal pain and distension. On 08/20, patient had paracentesis, and underwent diagnostic laparoscopy, liver biopsy of right liver nodule and removal of peritoneal dialysis catheter. General: awake, alert, oriented, not in acute distress Head: no signs of acute trauma HEENT: PERRLA, EOMI, sclerae anicteric, Neck: soft, supple, trachea midline without LAD Lung: clear to auscultation bilaterally Heart: regular rate and rhythm, S1/S2 normal, no m,r,g Abdomen: +distended, +tenderness LLQ/LUQ > RUQ/RLQ, NABS Ext: +2 pulses, no peripheral edema Neuro: AAOx3, CN II-XII intact, motor 5/5, sensation intact Abdominal pain, ascites likely 2/2 cirrhosis and malignant hepatic mass, can not totally rule out SBP, SBO CBC CMP PT/INR Mg, Phos CXR EKG CT scan of abdomen and pelvis IV morphine 2mg 09/03/18 16:57 *DC/Admit/Observation/Transfer - Referrals Referrals: Billy Becerra MD [Primary Care Provider] - - Patient Instructions - Post Discharge Activity
[2018-09-03 17:39] LABS: INR 1.06 (0.83-1.09); PROTHROMBIN TIME (PATIENT) 12.5 SEC (9.7-13.0)
[2018-09-03 17:47] LABS: ALBUMIN 1.7 g/dl (3.4-5.0); ALK PHOS 2143 U/L (45-117); ANION GAP 10 MMOL/L (8-16); BLOOD UREA NITROGEN 44 mg/dL (7-18); CALCIUM 7.3 mg/dL (8.5-10.1); CHLORIDE 101 mmol/L (98-107); CO2 24 mmol/L (21-32); GLUCOSE,RANDOM 105 mg/dL (74-106); MAGNESIUM 2.1 mg/dL (1.8-2.4); PHOSPHOROUS 4.1 mg/dL (2.5-4.9); POTASSIUM 4.1 mmol/L (3.5-5.1); SGOT/AST 526 U/L (15-37); SGPT/ALT 223 U/L (13-61); SODIUM 135 mmol/L (136-145); TOT PROT 5.7 g/dl (6.4-8.2)
[2018-09-03 17:49] LABS: CREATININE 8.3 mg/dL (0.55-1.3)
[2018-09-03 17:51] LABS: BASO % 0.5 % (0-2.0); EOS % 1.1 % (0-4.5); HEMATOCRIT 32.7 % (35.4-49); HEMOGLOBIN 10.3 GM/dL (11.7-16.9); LYMPH % 10.7 % (8-40); MCH 32.2 pg (25.7-33.7); MCHC 31.5 g/dl (32.0-35.9); MEAN CELL VOLUME 102.4 fl (80-96); MEAN PLT VOLUME 9.4 fl (7.5-11.1); MONO % 10.9 % (3.8-10.2); NEUT % 76.8 % (42.8-82.8); PLATELET COUNT 232 K/MM3 (134-434); RBC 3.19 M/mm3 (4.00-5.60); RDW 18.5 % (11.9-15.9); WHITE BLOOD COUNT 9.3 K/mm3 (4.0-10.0)
[2018-09-03 18:49] LABS: ANISOCYTOSIS 1+; MACROCYTOSIS 0; PLATELET ESTIMATE NORMAL; TARGET CELLS 1+
[2018-09-03] MEDS ORDERED: MORPHINE SULFATE 2 MG/ML VIAL ONE (19:04)
--- NOTE | 2018-09-03 20:37 | HP ---
Admitting History and Physical - Primary Care Physician PCP: Billy Becerra S - Admission Chief Complaint: Abdominal Pain History of Present Illness: This is a 53 y/o man from home ESRD (HD- ,, ), HTN, DM, GI Bleed, Anemia, Former ETOH Abuse, removal of PD Catheter, s/p liver biopsy 08/20/18, showing possible hepatic cholangeocarcinoma (pt is not aware yet, has appt with [facility] on Sep 15). Who presents to the ED with increased abdominal pain and distention. Patient was last seen on 08/30/18 left AMA after having paracentesis and hemodialysis. Patient reports having fluid drained from his abdomen twice. Patient denies fever, chills, cough, dizziness, SOB, CP, diarrhea , constipation. History Source: Patient Limitations to Obtaining History: No Limitations - Past Medical History Cardiovascular: Yes: HTN, Hyperlipdemia Gastrointestinal: Yes: GI Bleed (s/p EGD 01/26: ) Renal/: Yes: Renal Failure, Renal Inusuff, Hemodialysis Heme/Onc: Yes: Cancer (Suspected multifocal HCC) Endocrine: Yes: Diabetes Mellitus - Past Surgical History Additional Past Surgical History: Permacath RCW Paracentesis PD Catheter removal - Smoking History Smoking history: Smoker current status UNK Have you smoked in the past 12 months: No Aproximately how many cigarettes per day: 0 - Alcohol/Substance Use Hx Alcohol Use: No History of Substance Use: reports: None - Social History ADL: Independent History of Recent Travel: No Home Medications - Allergies Allergies/Adverse Reactions: Allergies Allergy/AdvReac Type Severity Reaction Status Date / Time Penicillins Allergy Intermediate Verified 08/29/18 15:44 - Home Medications Home Medications: Ambulatory Orders Sevelamer Carbonate [Renvela -] 1,600 mg PO TID 01/27/18 traZODone HCL [Trazodone HCl] 50 mg PO HS 04/07/18 Pantoprazole Sodium 40 mg PO BID 05/04/18 Docusate Sodium [Stool Softener] 100 mg PO ASDIR 08/16/18 Simethicone [Gas-X] 125 mg PO ASDIR 08/16/18 Carvedilol 3.125 mg PO BID 08/18/18 Furosemide [Lasix] 40 mg PO DAILY 08/18/18 Family Disease History - Family Disease History Family Disease History: Diabetes: Brother (2, 1 with CVA, 1 healthy), Heart Disease: Father (: 62: CHF), Other: Father, Mother (Alive: wasnt clear as to her med. problems), Brother Review of Systems - Review of Systems Constitutional: reports: No Symptoms Eyes: reports: No Symptoms HENT: reports: No Symptoms Neck: reports: No Symptoms Cardiovascular: reports: No Symptoms Respiratory: reports: No Symptoms Gastrointestinal: reports: Abdominal Pain, Bloating, Nausea, Vomiting Breasts: reports: No Symptoms Reported Musculoskeletal: reports: No Symptoms Integumentary: reports: Wound (surgical wounds) Neurological: reports: No Symptoms Endocrine: reports: No Symptoms Hematology/Lymphatic: reports: No Symptoms Psychiatric: reports: No Symptoms Physical Examination Vital Signs: Vital Signs Temperature 98.1 F 09/03/18 14:13 Pulse Rate 106 H 09/03/18 14:13 Respiratory Rate 18 09/03/18 14:13 Blood Pressure 104/71 09/03/18 14:13 O2 Sat by Pulse Oximetry (%) 100 09/03/18 14:13 Constitutional: Yes: No Distress, Calm, Obese Eyes: Yes: Conjunctiva Clear, PERRL HENT: Yes: WNL, Atraumatic, Normocephalic Neck: Yes: WNL, Supple, Trachea Midline Cardiovascular: Yes: WNL, Regular Rate and Rhythm, S1, S2, Other (Permacath to RCW) Respiratory: Yes: WNL, Regular, CTA Bilaterally Gastrointestinal: Yes: Ascites, Distention, Hepatomegaly, Hypoactive Bowel Sounds, Tenderness (LMQ/LLQ). No: Tenderness, Rebound Breast(s): Yes: WNL Musculoskeletal: Yes: WNL Extremities: Yes: WNL Edema: Yes Edema: LLE: 1+, RLE: 1+ Peripheral Pulses WNL: Yes Wound/Incision: Yes: Sutures Intact Neurological: Yes: WNL, Alert, Oriented, Cran Nerves II-XII Intact ...Motor Strength: WNL Psychiatric: Yes: WNL, Alert, Oriented Labs: CBC, BMP 09/03/18 16:57 09/03/18 16:57 Laboratory Results - last 24 hr 09/03/18 09/03/18 09/03/18 16:57 16:57 16:57 WBC 9.3 RBC 3.19 L Hgb 10.3 L Hct 32.7 L MCV 102.4 H MCH 32.2 MCHC 31.5 L RDW 18.5 H Plt Count 232 MPV 9.4 Absolute Neuts (auto) 7.1 Neutrophils % 76.8 Neutrophils % (Manual) 75.0 Band Neutrophils % 0.0 Lymphocytes % 10.7 Lymphocytes % (Manual) 6.0 L D Monocytes % 10.9 H Monocytes % (Manual) 15 H D Eosinophils % 1.1 Eosinophils % (Manual) 1.0 Basophils % 0.5 Basophils % (Manual) 0.0 Myelocytes % (Man) 0 D Promyelocytes % (Man) 0 Blast Cells % (Manual) 0 Nucleated RBC % 0 Metamyelocytes 3 H Hypochromia 1+ Platelet Estimate Normal Platelet Comment Present Polychromasia 1+ Poikilocytosis 1+ Anisocytosis 1+ Microcytosis 0 Macrocytosis 0 Target Cells 1+ PT with INR 12.50 INR 1.06 Sodium 135 L Potassium 4.1 Chloride 101 Carbon Dioxide 24 Anion Gap 10 BUN 44 H Creatinine 8.3 H* Creat Clearance w eGFR 6.85 Random Glucose 105 Calcium 7.3 L Phosphorus 4.1 Magnesium 2.1 Total Bilirubin 1.0 AST 526 H ALT 223 H Alkaline Phosphatase 2143 H Total Protein 5.7 L Albumin 1.7 L Intake & Output 09/01/18 09/02/18 09/03/18 09/04/18 23:59 23:59 23:59 23:59 Intake Total 0 Balance 0 Weight 95.254 kg Imaging - Results Chest X-ray: Image Reviewed Cat Scan: Report Reviewed, Image Reviewed EKG: Image Reviewed Problem List - Problems (1) Abdominal pressure Code(s): R10.9 - UNSPECIFIED ABDOMINAL PAIN (2) Ascites Code(s): R18.8 - OTHER ASCITES Qualifiers: Ascites type: other type Qualified Code(s): R18.8 - Other ascites (3) Hepatocellular carcinoma Code(s): C22.0 - LIVER CELL CARCINOMA (4) ESRD (end stage renal disease) on dialysis Code(s): N18.6 - END STAGE RENAL DISEASE; Z99.2 - DEPENDENCE ON RENAL DIALYSIS (5) Transaminitis Code(s): R74.0 - NONSPEC ELEV OF LEVELS OF TRANSAMNS & LACTIC ACID DEHYDRGNSE (6) Chronic anemia Code(s): D64.9 - ANEMIA, UNSPECIFIED (7) Hypertensive cardiomegaly with heart failure Code(s): I11.0 - HYPERTENSIVE HEART DISEASE WITH HEART FAILURE (8) Diabetes Code(s): E11.9 - TYPE 2 DIABETES MELLITUS WITHOUT COMPLICATIONS Qualifiers: Diabetes mellitus type: type 2 Diabetes mellitus intermediate insulin use: with intermediate use Diabetes mellitus complication status: without complication Qualified Code(s): E11.9 - Type 2 diabetes mellitus without complications; Z79.4 - [facility] (current) use of insulin Assessment/Plan This is a 53 y/o man with a PMHx of ESRD ( HD- , , ) s/p PD Catheter removal, DM, HTN, CHF,GIB, Anemia, Prior ETOH Abuse, Cirrhosis, s/p Liver Biopsy 08/20/18. Admitted for ESRD, Ascites, Abdominal Pain secondary to Liver Mass, Transaminitis for further evaluation of their emergent condition. Plan: 1. ESRD s/p Permacath placement for HD (, ) Nephrology aware and following HD management Scheduled for HD today Bun/Cr 44/8.3, at baseline Monitor vitals 2. Ascites Likely secondary to Cirrhosis vs Liver Mass CTAP- reviewed Appreciate IR consult for paracentesis Appreciate GI Consult 3. Abdominal Pain Likely secondary to Ascites vs Liver Mass vs Ileus CTAP reviewed Monitor CBC, BMP NPO Will use Morphine judiciously Zofran x1 Appreciate GI consult 4. HTN Controlled Will hold meds for now until, GI, IR see pt Monitor BP 5. CHF No acute flare O2 Hold meds for now, till GI, IR see pt 6. DM stable BGMs hold meds while NPO 7. Anemia Likely secondary to ESRD vs TERRI Hgb at baseline Will transfuse if Hgb < 7.0 Monitor CBC 8. GIB no active bleed Will continue to monitor and treat with interventions accordingly FEN Replete lytes prn NPO DVT ppx OOB SCDs Dispo: Requires Inpatient Care Visit type - Emergency Visit Emergency Visit: Yes ED Registration Date: 09/03/18 Care time: The patient presented to the Emergency Department on the above date and was hospitalized for further evaluation of their emergent condition. - New Patient This patient is new to me today: Yes Date on this admission: 09/03/18 - Critical Care Critical Care patient: No
--- NOTE | 2018-09-03 21:35 | CONSULT ---
Consult Consult Specialty:: Nephrology Reason for Consultation:: ESRD - History of Present Illness Chief Complaint: abdominal pain and distension History of Present Illness: Pt is a 53 year old male with pmhx of htn, dm, adenocarcinoma, and ESRD who presents with abdominal distension and worsening ascites. He denies shortness of breath. He was last dialyzed yesterday. He denies fevers or chills. He denies chest pain or palpitations. He is on HD 3 time per week. He was briefly on PD a few months back. His access is a permacath. He was recently diagnosed with adenocarcinoma. He has poor outpt follow up. - History Source History Provided By: Patient - Past Medical History Cardio/Vascular: Yes: HTN, Hyperlipdemia Gastrointestinal: Yes: GI Bleed (s/p EGD 01/26: ) Renal/: Yes: Renal Failure, Renal Inusuff, Hemodialysis Endocrine: Yes: Diabetes Mellitus - Past Surgical History Past Surgical History: Yes: AV Fistula/Graft - Alcohol/Substance Use Hx Alcohol Use: No History of Substance Use: reports: None - Smoking History Smoking history: Smoker current status UNK Have you smoked in the past 12 months: No Aproximately how many cigarettes per day: 0 - Social History ADL: Independent History of Recent Travel: No Home Medications - Allergies Allergies/Adverse Reactions: Allergies Allergy/AdvReac Type Severity Reaction Status Date / Time Penicillins Allergy Intermediate Verified 08/29/18 15:44 - Home Medications Home Medications: Ambulatory Orders Sevelamer Carbonate [Renvela -] 1,600 mg PO TID 01/27/18 traZODone HCL [Trazodone HCl] 50 mg PO HS 04/07/18 Pantoprazole Sodium 40 mg PO BID 05/04/18 Docusate Sodium [Stool Softener] 100 mg PO ASDIR 08/16/18 Simethicone [Gas-X] 125 mg PO ASDIR 08/16/18 Carvedilol 3.125 mg PO BID 08/18/18 Furosemide [Lasix] 40 mg PO DAILY 08/18/18 Family Disease History - Family Disease History Family Disease History: Diabetes: Brother (2, 1 with CVA, 1 healthy), Heart Disease: Father (: 62: CHF), Other: Father, Mother (Alive: wasnt clear as to her med. problems), Brother Review of Systems - Review of Systems Constitutional: reports: Malaise. denies: Chills, Fever Eyes: reports: No Symptoms HENT: reports: No Symptoms Neck: reports: No Symptoms Cardiovascular: reports: No Symptoms Gastrointestinal: reports: Other (ascites) Musculoskeletal: reports: No Symptoms Neurological: reports: No Symptoms Endocrine: reports: No Symptoms Hematology/Lymphatic: reports: No Symptoms Psychiatric: reports: No Symptoms Physical Exam Vital Signs: Vital Signs Temperature 98.0 F 09/03/18 21:14 Pulse Rate 104 H 09/03/18 21:14 Respiratory Rate 18 09/03/18 21:14 Blood Pressure 95/67 09/03/18 21:14 O2 Sat by Pulse Oximetry (%) 100 09/03/18 21:14 Constitutional: Yes: Calm Eyes: Yes: Conjunctiva Clear HENT: Yes: Atraumatic Neck: Yes: Supple Cardiovascular: Yes: S1, S2 Respiratory: Yes: CTA Bilaterally Gastrointestinal: Yes: Ascites, Distention, Tenderness Renal/: Yes: WNL Musculoskeletal: Yes: WNL Edema: No Neurological: Yes: Oriented Psychiatric: Yes: Oriented Labs: CBC, BMP 09/03/18 16:57 09/03/18 16:57 Imaging - Results Cat Scan: Report Reviewed Problem List - Problems (1) Abnormal liver CT Code(s): R93.2 - ABNORMAL FINDINGS ON DX IMAGING OF LIVER AND BILIARY TRACT (2) Ascites Code(s): R18.8 - OTHER ASCITES Qualifiers: Ascites type: other type Qualified Code(s): R18.8 - Other ascites (3) ESRD (end stage renal disease) on dialysis Code(s): N18.6 - END STAGE RENAL DISEASE; Z99.2 - DEPENDENCE ON RENAL DIALYSIS Assessment/Plan Impression 1. ESRD 2. DM 3. ascites 4. HTN 5. obesity 6. anemia 7. iron deficiency 8. CHF 9. anemia 10. non compliance 11. liver mass 12. hx GI bleed 13. diabetic nephropathy 14. adenocarcinoma Plan - GI eval for worsening ascites - HD in am - oncology evaluation - will arrange for HD tomorrow - will likely need fluid to be drained, discussed with ER earlier and they will call IR/GI - monitor bp - will follow
[2018-09-03 22:29] VITALS: BMI 31.9
[2018-09-04] MEDS ORDERED: ONDANSETRON 4 MG/2 ML VIAL IVPUSH ONE (01:17)
[2018-09-04] MEDS ORDERED: MORPHINE SULFATE 2 MG/ML VIAL IVPUSH ONE ×2 (01:30→19:45)
[2018-09-04 07:55] LABS: BASO % 0.3 % (0-2.0); EOS % 0.8 % (0-4.5); HEMATOCRIT 33.3 % (35.4-49); HEMOGLOBIN 10.5 GM/dL (11.7-16.9); LYMPH % 10.7 % (8-40); MCH 32.2 pg (25.7-33.7); MCHC 31.4 g/dl (32.0-35.9); MEAN CELL VOLUME 102.6 fl (80-96); MEAN PLT VOLUME 8.9 fl (7.5-11.1); MONO % 11.6 % (3.8-10.2); NEUT % 76.6 % (42.8-82.8); PLATELET COUNT 244 K/MM3 (134-434); RBC 3.25 M/mm3 (4.00-5.60); RDW 18.5 % (11.9-15.9); WHITE BLOOD COUNT 10.8 K/mm3 (4.0-10.0)
[2018-09-04 09:09] LABS: ANION GAP 16 MMOL/L (8-16); BLOOD UREA NITROGEN 51 mg/dL (7-18); CALCIUM 7.7 mg/dL (8.5-10.1); CHLORIDE 99 mmol/L (98-107); CO2 21 mmol/L (21-32); GLUCOSE,RANDOM 72 mg/dL (74-106); POTASSIUM 4.2 mmol/L (3.5-5.1); SODIUM 136 mmol/L (136-145)
[2018-09-04 09:23] LABS: CREATININE 8.9 mg/dL (0.55-1.3)
[2018-09-04 09:44] LABS: ANISOCYTOSIS 1+; MACROCYTOSIS 1+; PLATELET ESTIMATE NORMAL
--- NOTE | 2018-09-04 11:59 | PN ---
Progress Note, Physician - Objective Vital Signs: Vital Signs Temperature 98.2 F 09/04/18 04:55 Pulse Rate 102 H 09/04/18 04:55 Respiratory Rate 20 09/04/18 04:55 Blood Pressure 121/92 09/04/18 04:55 O2 Sat by Pulse Oximetry (%) 98 09/03/18 22:43 Labs: CBC, BMP 09/04/18 07:15 09/04/18 07:15 INR, PTT INR 1.06 (0.83-1.09) 09/03/18 16:57 Problem List - Problems (1) ESRD (end stage renal disease) on dialysis Assessment/Plan: s/p Permacath placement for HD () Nephrology HD management Monitor vitals Code(s): N18.6 - END STAGE RENAL DISEASE; Z99.2 - DEPENDENCE ON RENAL DIALYSIS (2) Diabetes Assessment/Plan: bgm Code(s): E11.9 - TYPE 2 DIABETES MELLITUS WITHOUT COMPLICATIONS Qualifiers: Diabetes mellitus type: type 2 Diabetes mellitus correction insulin use: with termination clerk use Diabetes mellitus complication status: without complication Qualified Code(s): E11.9 - Type 2 diabetes mellitus without complications; Z79.4 - [facility] (current) use of insulin (3) Cholangiocarcinoma Assessment/Plan: Oncology consult Code(s): C22.1 - INTRAHEPATIC BILE DUCT CARCINOMA (4) Ascites Assessment/Plan: 2. Likely secondary to Cirrhosis vs malignancy CTAP- reviewed IR consult for paracentesis GI Consult CTAP reviewed Monitor CBC, BMP renal diet Will use Morphine judiciously Zofran x1 Code(s): R18.8 - OTHER ASCITES Qualifiers: Ascites type: other type Qualified Code(s): R18.8 - Other ascites
--- NOTE | 2018-09-04 12:02 | EKG ---
Test Reason : Blood Pressure : / mmHG Vent. Rate : 092 BPM Atrial Rate : 092 BPM P-R Int : 172 ms QRS Dur : 080 ms QT Int : 372 ms P-R-T Axes : 011 -59 010 degrees QTc Int : 460 ms POOR DATA QUALITY, INTERPRETATION MAY BE ADVERSELY AFFECTED INDETERMINATE RHYTHM, DUE TO EXCESSIVE BASELINE ARTIFACT POSSIBLE OLD AWMI (SIMILAR TO PRIOR ECG) Confirmed by YAS TURNER MD ([id number]) on 09/04/2018 12:02:05 PM Referred By: Confirmed By:YAS TURNER MD
[2018-09-04] MEDS: ALBUMIN HUMAN 25% 12.5 GM/50 ML VIAL IVPB SCH ×3 (13:50→14:38)
[2018-09-04] MEDS ORDERED: SEVELAMER CARBONATE 800 MG TAB (FP) PO SCH (14:00)
[2018-09-04] MEDS ORDERED: EPOETIN ALFA 3,000 UNIT, EPOETIN ALFA 2,000 UNIT IVPUSH ONE (14:00)
--- NOTE | 2018-09-04 15:40 | PN ---
Progress Note (short form) - Note Progress Note: RENAL Pt is awake and alert currently on hd was previously on PD and had his PD catheter removed recently still has abdominal pain presumably from surgery Last Vital Signs Temp Pulse Resp BP Pulse Ox 98.8 F 109 H 18 95/55 L 98 09/04/18 11:25 09/04/18 15:05 09/04/18 15:05 09/04/18 15:05 09/03/18 22:43 heent blind right eye lungs clear cvs s1s2 rr abd soft, tender ext no edema neuro a+ox3 CBC, BMP 09/04/18 07:15 09/04/18 07:15 Current Medications Generic Name Dose Route Start Last Admin Trade Name Freq PRN Reason Stop Dose Admin Carvedilol 3.125 mg 09/04/18 12:00 Coreg - PO BID KRISTEN Furosemide 40 mg 09/05/18 10:00 Lasix - PO DAILY KRISTEN Insulin Aspart 1 vial 09/04/18 16:30 Novolog Vial Sliding Scale - SQ ACHS KRISTEN Protocol Pantoprazole Sodium 40 mg 09/04/18 12:00 Protonix - PO BID KRISTEN Sevelamer Carbonate 1,600 mg 09/04/18 14:00 Renvela - PO TID KRISTEN Trazodone HCl 50 mg 09/04/18 22:00 Desyrel - PO HS KRISTEN mpression 1. ESRD 2. DM 3. ascites 4. HTN 5. obesity 6. anemia 7. iron deficiency 8. CHF 9. anemia 10. non compliance 11. liver mass 12. hx GI bleed 13. diabetic nephropathy 14. adenocarcinoma Plan needs a paracentesis even if its only diagnostic continue hd tiw pt is status post removal of pd catheter 2 weeks ago. Subsequently had a laparoscopic removal of a retained piece of his PD catheter continue lasix, increase dose to 80 daily on non hd days MV
[2018-09-04] MEDS: PANTOPRAZOLE 40 MG TABLET (FP) PO SCH ×2 (15:54→21:32)
[2018-09-04] MEDS: CARVEDILOL 3.125 MG TABLET (FP) PO SCH ×2 (15:54→21:33)
[2018-09-04] MEDS ORDERED: INSULIN (NOVOLOG) ASPART 100 UNITS/ML 10ML VIAL ONE ×2 (16:11→21:09)
--- NOTE | 2018-09-04 16:33 | CONS ---
DATE OF CONSULTATION: DATE OF DICTATION: 09/04/2018 Mr. Brar is a 53-year-old man with a past medical history of end-stage renal disease on hemodialysis, previous PD catheter which was recently removed, hypertension, diabetes, history of GI bleed with his last upper endoscopy early in 2017 at which time he was found to have duodenal and gastric ulcers. Also with anemia, former alcohol abuse, liver biopsy August 20, 2018, which showed possible hepatic cholangiocarcinoma, he now presents to the emergency room with complaints of abdominal pain and distension. Of note, he did leave against medical advice on the . Prior to leaving, he did have a paracentesis done as well as hemodialysis. He currently admits to some abdominal pain secondary to the distension. He denies nausea, vomiting, diarrhea, constipation, melena or hematochezia. PAST MEDICAL AND SURGICAL HISTORY: As listed in the HPI. ALLERGIES: PENICILLIN. HOME MEDICATIONS: Include Renvela, trazodone, Protonix, Colace, Gas-X, carvedilol, and Lasix. SOCIAL HISTORY: No current alcohol abuse. Does not smoke. No drug abuse. FAMILY HISTORY: History of coronary artery disease. No history of liver disease. REVIEW OF SYSTEMS: Negative except for pertinent positives in the HPI. PHYSICAL EXAMINATION: Vital Signs: Temperature is not documented at this time. Pulse 105, blood pressure 95/55, respiratory rate 18. Oxygen saturation is also not documented. General: In no acute distress. HEENT: Anicteric sclerae. Cardiovascular: S1, S2. Regular rate and rhythm. Lungs: Bilaterally clear to auscultation. Abdomen: Tender to deep palpation with distension and there are bowel sounds. No rebound or guarding. Extremities: No edema. LABORATORIES: White blood cell count 10, hemoglobin 10, hematocrit 33, MCV 102, platelet count 244. INR 1.06. Sodium 136, potassium 4.2, BUN 41, creatinine 8.9. AST 526, ALT 223, alkaline phosphatase 2143. There is no microbiology reported. IMPRESSION: Abdominal pain secondary to ascites in the setting of underlying malignancy, most likely cholangiocarcinoma. Follow up final pathology results. He would benefit from a diagnostic and therapeutic paracentesis. Would send for cell count differential, culture, LDH protein, albumin, and cytology. A 2-gram sodium diet. Hemodialysis as per primary medical team. PPI therapy. Oncology follow - up. Will follow this patient closely with you. DO FREEMAN NGUYEN/[id number] MTDD
[2018-09-04] MEDS: oxyCODONE HCL 5 MG TABLET PO PRN (16:53)
[2018-09-04] MEDS: INSULIN SLIDING SCALE (NOVOLOG) 1 VIAL SQ SCH ×2 (16:58→21:30)
[2018-09-04] MEDS: SEVELAMER CARBONATE 800 MG TAB (FP) PO SCH (20:31)
[2018-09-04] MEDS: traZODone HCL 50 MG TABLET (FP) PO SCH (21:32)
--- NOTE | 2018-09-05 00:05 | CONSULT ---
Consult - text type - Consultation Consultation Note: 53M admitted for worsening ascites. He had CT scan of the abdomen without contrast 08/14/18. US at that time failed to reveal biliary ductal dilatation. the CT scan also revealed liver masses and a large amount of ascites. He had an AFP tumor marker of 48,417 05/29 and 14,935 in 2017 and most recently 07/29 AFP tumor marker was > 70K. He has apparently been non complaint with follow- up. Liver chemistries have been abnormal for quite some time. He had an EGD performed by Dr. Alex Denis 01/27 revealing antral and duodenal ulcers. He denies a family history of cancer. Liver biopsy 08/20/18 c/w adenocarcinoma -- - ? intrahepatic cholangioca ? upper GI Primary - History Source History Provided By: Patient - Past Medical History Cardio/Vascular: Yes: HTN, Hyperlipdemia Gastrointestinal: Yes: GI Bleed (s/p EGD 01/26: ) Renal/: Yes: Renal Failure, Renal Inusuff, Hemodialysis Heme/Onc: Yes: Cancer (Suspected multifocal HCC) Endocrine: Yes: Diabetes Mellitus - Past Surgical History Past Surgical History: Yes: AV Fistula/Graft - Alcohol/Substance Use Hx Alcohol Use: Yes (socially) - Smoking History Smoking history: Never smoked - Allergies Allergies/Adverse Reactions: Allergies Allergy/AdvReac Type Severity Reaction Status Date / Time Penicillins Allergy Intermediate Verified 08/29/18 15:44 - Home Medications Home Medications: Ambulatory Orders Sevelamer Carbonate [Renvela -] 1,600 mg PO TID 01/27/18 traZODone HCL [Trazodone HCl] 50 mg PO HS 04/07/18 Pantoprazole Sodium 40 mg PO BID 05/04/18 Docusate Sodium [Stool Softener] 100 mg PO ASDIR 08/16/18 Simethicone [Gas-X] 125 mg PO ASDIR 08/16/18 Carvedilol 3.125 mg PO BID 08/18/18 Furosemide [Lasix] 40 mg PO DAILY 08/18/18 Family Disease History - Family Disease History Family Disease History: Diabetes: Brother (2, 1 with CVA, 1 healthy), Heart Disease: Father (: 62: CHF), Other: Father, Mother (Alive: wasnt clear as to her med. problems), Brother Physical Exam-GI Vital Signs: AFVSS Constitutional: Yes: Calm Eyes: No: Sclera Icterus Cardiovascular: Yes: Regular Rate and Rhythm. No: Murmur Respiratory: Yes: Diminished (at bases bilaterally) Gastrointestinal Inspection: Yes: Ascites, Distention, Scars (trochar scars and mid abdominal surgical scar) ...Auscultate: Yes: Normoactive Bowel Sounds Neurological: Yes: Alert. No: Asterix[facility] Labs/MEds eviewed A/P 53 y/o patient with ESRD on HD, recently diagnose adenoca liver ? intrahepatic cholangio, presenting with abdominal distention/ascites Scheduling paracentesis normal platelets/coags ALKP--2000s will add microsatellite tesiting/PDL! on biopsy will discuss
[2018-09-05] MEDS: oxyCODONE HCL 5 MG TABLET PO PRN ×4 (02:37→22:48)
[2018-09-05] MEDS: INSULIN SLIDING SCALE (NOVOLOG) 1 VIAL SQ SCH ×4 (06:02→21:23)
[2018-09-05] MEDS: SEVELAMER CARBONATE 800 MG TAB (FP) PO SCH ×3 (08:44→17:22)
[2018-09-05 08:45] LABS: INR 1.09 (0.83-1.09); PROTHROMBIN TIME (PATIENT) 12.9 SEC (9.7-13.0)
[2018-09-05] MEDS: PANTOPRAZOLE 40 MG TABLET (FP) PO SCH ×2 (10:32→21:23)
[2018-09-05] MEDS: CARVEDILOL 3.125 MG TABLET (FP) PO SCH ×3 (10:32→21:27)
[2018-09-05] MEDS: FUROSEMIDE 40 MG TABLET (FP) PO SCH (10:32)
--- NOTE | 2018-09-05 11:05 | PN ---
Progress Note (short form) - Note Progress Note: RENAL Pt is awake and alert seen in [facility]ium was previously on PD and had his PD catheter removed recently still has abdominal pain presumably from surgery Last Vital Signs Temp Pulse Resp BP Pulse Ox 99.1 F 106 H 18 106/56 L 98 09/05/18 06:26 09/05/18 10:00 09/05/18 10:00 09/05/18 10:00 09/04/18 21:00 heent blind right eye lungs clear cvs s1s2 rr abd soft, tender ext no edema neuro a+ox3 CBC, BMP 09/04/18 07:15 09/04/18 07:15 Current Medications Generic Name Dose Route Start Last Admin Trade Name Freq PRN Reason Stop Dose Admin Carvedilol 3.125 mg 09/04/18 12:00 09/05/18 10:32 Coreg - PO Not Given BID KRISTEN Furosemide 40 mg 09/05/18 10:00 09/05/18 10:32 Lasix - PO 40 mg DAILY KRISTEN Administration Insulin Aspart 1 vial 09/04/18 16:30 09/05/18 06:02 Novolog Vial Sliding Scale - SQ Not Given ACHS KRISTEN Protocol Oxycodone HCl 5 mg 09/04/18 16:38 09/05/18 06:51 Roxicodone - PO 5 mg Q4H PRN Administration PAIN > 5 Pantoprazole Sodium 40 mg 09/04/18 12:00 09/05/18 10:32 Protonix - PO 40 mg BID KRISTEN Administration Sevelamer Carbonate 1,600 mg 09/04/18 19:45 09/05/18 08:44 Renvela - PO 1,600 mg TIDCM KRISTEN Administration Trazodone HCl 50 mg 09/04/18 22:00 09/04/18 21:32 Desyrel - PO 50 mg HS KRISTEN Administration mpression 1. ESRD 2. DM 3. ascites 4. HTN 5. obesity 6. anemia 7. iron deficiency 8. CHF 9. anemia 10. non compliance 11. liver mass 12. hx GI bleed 13. diabetic nephropathy 14. adenocarcinoma Plan needs a paracentesis even if its only diagnostic continue hd tiw pt is status post removal of pd catheter 2 weeks ago. Subsequently had a laparoscopic removal of a retained piece of his PD catheter continue lasix, increase dose to 80 daily on non hd days- says he urinates 1/2 a cup daily MV
--- NOTE | 2018-09-05 11:33 | PN ---
Progress Note, Physician Chief Complaint: states he is feeling better today was able to tolerate PO intake some abdominal pain but less than yesterday - Current Medication List Current Medications: Active Medications Carvedilol (Coreg -) 3.125 mg PO BID [facility] Last Admin: 09/05/18 10:32 Dose: Not Given Furosemide (Lasix -) 40 mg PO DAILY [facility] Last Admin: 09/05/18 10:32 Dose: 40 mg Insulin Aspart (Novolog Vial Sliding Scale -) 1 vial SQ ACHS [facility]; Protocol Last Admin: 09/05/18 06:02 Dose: Not Given Oxycodone HCl (Roxicodone -) 5 mg PO Q4H PRN PRN Reason: PAIN > 5 Last Admin: 09/05/18 06:51 Dose: 5 mg Pantoprazole Sodium (Protonix -) 40 mg PO BID [facility] Last Admin: 09/05/18 10:32 Dose: 40 mg Sevelamer Carbonate (Renvela -) 1,600 mg PO TIDCM [facility] Last Admin: 09/05/18 08:44 Dose: 1,600 mg Trazodone HCl (Desyrel -) 50 mg PO HS [facility] Last Admin: 09/04/18 21:32 Dose: 50 mg - Objective Vital Signs: Vital Signs Temperature 99.1 F 09/05/18 06:26 Pulse Rate 106 H 09/05/18 10:00 Respiratory Rate 18 09/05/18 10:00 Blood Pressure 106/56 L 09/05/18 10:00 O2 Sat by Pulse Oximetry (%) 98 09/04/18 21:00 Constitutional: Yes: Well Nourished, No Distress, Calm Eyes: Yes: WNL HENT: Yes: WNL Neck: Yes: WNL Cardiovascular: Yes: WNL, Regular Rate and Rhythm Respiratory: Yes: WNL, Regular, CTA Bilaterally Gastrointestinal: Yes: Normal Bowel Sounds, Other (ascites , LLQ tenderness less than yesterday - no rebound or guarding) Extremities: Yes: WNL Edema: No Labs: CBC, BMP 09/04/18 07:15 09/04/18 07:15 INR, PTT INR 1.09 (0.83-1.09) 09/05/18 07:15 Fibrinogen 441.0 mg/dL (238-498) 09/05/18 07:15 Problem List - Problems (1) Ascites Assessment/Plan: ((Path returned mesothelial cells - as per record)). - pain management - therapeutic / diagnostic paracentesis - low sodium / renal diet - oncology f/u - he is followed by hepatobiliary service at [facility] Code(s): R18.8 - OTHER ASCITES Qualifiers: Ascites type: malignant Qualified Code(s): R18.0 - Malignant ascites (2) ESRD (end stage renal disease) on dialysis Code(s): N18.6 - END STAGE RENAL DISEASE; Z99.2 - DEPENDENCE ON RENAL DIALYSIS
--- NOTE | 2018-09-05 12:44 | PN ---
Progress Note, Physician - Current Medication List Current Medications: Active Medications Carvedilol (Coreg -) 3.125 mg PO BID [facility] Last Admin: 09/05/18 10:32 Dose: Not Given Furosemide (Lasix -) 40 mg PO DAILY [facility] Last Admin: 09/05/18 10:32 Dose: 40 mg Insulin Aspart (Novolog Vial Sliding Scale -) 1 vial SQ ACHS [facility]; Protocol Last Admin: 09/05/18 11:33 Dose: Not Given Oxycodone HCl (Roxicodone -) 5 mg PO Q4H PRN PRN Reason: PAIN > 5 Last Admin: 09/05/18 06:51 Dose: 5 mg Pantoprazole Sodium (Protonix -) 40 mg PO BID [facility] Last Admin: 09/05/18 10:32 Dose: 40 mg Sevelamer Carbonate (Renvela -) 1,600 mg PO TIDCM [facility] Last Admin: 09/05/18 08:44 Dose: 1,600 mg Trazodone HCl (Desyrel -) 50 mg PO HS [facility] Last Admin: 09/04/18 21:32 Dose: 50 mg - Objective Vital Signs: Vital Signs Temperature 99.1 F 09/05/18 06:26 Pulse Rate 106 H 09/05/18 10:00 Respiratory Rate 18 09/05/18 10:00 Blood Pressure 106/56 L 09/05/18 10:00 O2 Sat by Pulse Oximetry (%) 98 09/04/18 21:00 Cardiovascular: Yes: S1, S2 Respiratory: Yes: Regular, CTA Bilaterally Gastrointestinal: Yes: Normal Bowel Sounds, Soft, Ascites, Distention Labs: CBC, BMP 09/04/18 07:15 09/04/18 07:15 INR, PTT INR 1.09 (0.83-1.09) 09/05/18 07:15 Fibrinogen 441.0 mg/dL (238-498) 09/05/18 07:15 Problem List - Problems (1) ESRD (end stage renal disease) on dialysis Assessment/Plan: s/p Permacath placement for HD () Nephrology HD management Monitor vitals Code(s): N18.6 - END STAGE RENAL DISEASE; Z99.2 - DEPENDENCE ON RENAL DIALYSIS (2) Diabetes Assessment/Plan: bgm Code(s): E11.9 - TYPE 2 DIABETES MELLITUS WITHOUT COMPLICATIONS Qualifiers: Diabetes mellitus type: type 2 Diabetes mellitus [facility] insulin use: with floatlight powder mixer use Diabetes mellitus complication status: without complication Qualified Code(s): E11.9 - Type 2 diabetes mellitus without complications; Z79.4 - take down sorter (current) use of insulin (3) Cholangiocarcinoma Assessment/Plan: Oncology consult Code(s): C22.1 - INTRAHEPATIC BILE DUCT CARCINOMA (4) Ascites Assessment/Plan: Likely secondary to Cirrhosis vs malignancy CTAP- reviewed IR consult for paracentesis GI Consult CTAP reviewed Monitor CBC, BMP renal diet Will use Morphine judiciously Zofran x1 Code(s): R18.8 - OTHER ASCITES Qualifiers: Ascites type: other type Qualified Code(s): R18.8 - Other ascites (5) Abdominal pressure Assessment/Plan: Operative Date: 08/20/18 Pre-Operative Diagnosis: retained foreign body peritoneal dialysis catherter Operation: diagnostic laparoscopy, removal of peritoneal dialysis catheter, liver biopsy right lobe nodule Findings: Aspirated 2300ml of greeish ascites. intraperitoneal portion of the peritoneal dialysis catheter was removed after located in the upper pelvis midline. There was grossly metatstatic liver disease in the right lobe of the liver. Omental caking and peritoneal implants observed in the right abdomen. ascites sent for cytology and nodule sent for final pathologic diagnosis Post-Operative Diagnosis: Same as Pre-op Surgeon: Rivera Escobar (adrian) Code(s): R10.9 - UNSPECIFIED ABDOMINAL PAIN
--- NOTE | 2018-09-05 13:13 | CONSULT ---
Consult Consult Specialty:: General Surgery Reason for Consultation:: Abdominal pain - History of Present Illness Chief Complaint: Abdmoinal pain History of Present Illness: 53yo male PMH DM, HTN, ESRD (T, Th, , last dialysis ), GIB, anemia, presents with complaint of 5-6 days of increasing abdominal distension. s/p diagnostic laparoscopy with foreign body retrieval and liver biopsy. Path returned mesothelial cells. Pt was formerly evaluated in the ED 3 days ago where he got CT/US. Pt has awaiting fu with a liver specialist at [place] for a CT with contrast. Pt is feeling increased distension/bloated. He has had several recent drainage of taps with removal of 3-5L of fluid. He notes he has been having increased LLQ pain sp peritoneal dialysis cather removal. Denies any fever/chills, n/v, cp, sob, back pain, dysuria, diarrhea. we were asked to assess. - History Source History Provided By: Patient, Medical Record Limitations to Obtaining History: No Limitations - Past Medical History Cardio/Vascular: Yes: HTN, Hyperlipdemia Gastrointestinal: Yes: GI Bleed (s/p EGD 01/26: ) Renal/: Yes: Renal Failure, Renal Inusuff, Hemodialysis Endocrine: Yes: Diabetes Mellitus - Past Surgical History Past Surgical History: Yes: AV Fistula/Graft - Alcohol/Substance Use Hx Alcohol Use: No History of Substance Use: reports: None - Smoking History Smoking history: Smoker current status UNK Have you smoked in the past 12 months: No Aproximately how many cigarettes per day: 0 - Social History ADL: Independent History of Recent Travel: No Home Medications - Allergies Allergies/Adverse Reactions: Allergies Allergy/AdvReac Type Severity Reaction Status Date / Time Penicillins Allergy Intermediate Verified 08/29/18 15:44 - Home Medications Home Medications: Ambulatory Orders Sevelamer Carbonate [Renvela -] 1,600 mg PO TID 01/27/18 traZODone HCL [Trazodone HCl] 50 mg PO HS 04/07/18 Pantoprazole Sodium 40 mg PO BID 05/04/18 Docusate Sodium [Stool Softener] 100 mg PO ASDIR 08/16/18 Simethicone [Gas-X] 125 mg PO ASDIR 08/16/18 Carvedilol 3.125 mg PO BID 11/07/18 Furosemide [Lasix] 40 mg PO DAILY 08/18/18 Family Disease History - Family Disease History Family Disease History: Diabetes: Brother (2, 1 with CVA, 1 healthy), Heart Disease: Father (: 62: CHF), Other: Father, Mother (Alive: wasnt clear as to her med. problems), Brother Review of Systems - Review of Systems Constitutional: reports: Fever, Lethargy, Unintentional Wgt. Loss. denies: Chills Eyes: denies: Blind Spots, Recent Change in Vision HENT: denies: Difficult Swallowing Neck: denies: Stiffness, Swollen Glands Cardiovascular: denies: Chest Pain, Palpitations Respiratory: denies: Cough, SOB Gastrointestinal: reports: Abdominal Pain, Bloating. denies: Diarrhea, Dysphagia Genitourinary: denies: Dysuria, Flank Pain Breasts: reports: No Symptoms Reported. denies: Pain Musculoskeletal: denies: Joint Swelling, Muscle Cramps, Muscle Weakness Integumentary: denies: Erythema, Rash Neurological: denies: Seizure, Syncope Endocrine: denies: Unexplained Weight Gain, Unexplained Weight Loss Hematology/Lymphatic: denies: Easily Bruised, Excessive Bleeding Psychiatric: denies: Anxiety, Depression Physical Exam Vital Signs: Vital Signs Temperature 99.1 F 09/05/18 06:26 Pulse Rate 106 H 09/05/18 10:00 Respiratory Rate 18 09/05/18 10:00 Blood Pressure 106/56 L 09/05/18 10:00 O2 Sat by Pulse Oximetry (%) 98 09/04/18 21:00 Vital Signs Period Temp Pulse Resp BP Sys/Hayden Pulse Ox Last 24 Hr 98.5 F-99.1 F 103-118 17-19 87-112/44-66 98 Constitutional: Yes: Well Nourished, No Distress, Mild Distress Eyes: Yes: Conjunctiva Clear, EOM Intact HENT: Yes: Atraumatic, Normocephalic Neck: Yes: Supple, Trachea Midline Cardiovascular: Yes: Regular Rate and Rhythm, S1, S2 Respiratory: Yes: Regular, CTA Bilaterally Gastrointestinal: Yes: Normal Bowel Sounds, Soft, Abdomen, Obese, Distention. No: Tenderness, Tenderness, Epigastrium, Tenderness, Rebound ...Rectal Exam: Yes: Deferred Renal/: No: CVA Tenderness - Left, CVA Tenderness - Right Breast(s): Yes: Gynecomastia Musculoskeletal: No: Muscle Pain, Muscle Weakness Extremities: No: Cool, Cyanosis Edema: Yes Edema: LUE: Trace, RUE: Trace, LLE: Trace, RLE: Trace Peripheral Pulses WNL: Yes Integumentary: No: Jaundice, Rash Wound/Incision: Yes: Clean/Dry, Well Approximated, Sutures Removed Neurological: Yes: Alert, Oriented Psychiatric: Yes: Alert, Oriented Labs: CBC, BMP 09/04/18 07:15 09/04/18 07:15 Imaging - Results Cat Scan: Report Reviewed, Image Reviewed (Right liver neoplastic disease, massive ascites, multiple bowel implants and associated ileus) Problem List - Problems (1) Ascites Assessment/Plan: 53yo male MMP with abdominal pain likely secondary to abdominal distension with malignant ascites. There is no acute intervention that would improve this symptom. Sutures from diagnostic laproscopy removed - noted no leakage of ascites pain management theraputic paracentesis Thank you for the opportunity to participate in the care of this patient. Code(s): R18.8 - OTHER ASCITES Qualifiers: Ascites type: malignant Qualified Code(s): R18.0 - Malignant ascites (2) ESRD (end stage renal disease) on dialysis Code(s): N18.6 - END STAGE RENAL DISEASE; Z99.2 - DEPENDENCE ON RENAL DIALYSIS (3) Hepatocellular carcinoma Code(s): C22.0 - LIVER CELL CARCINOMA (4) Chronic anemia Code(s): D64.9 - ANEMIA, UNSPECIFIED (5) Diabetes Code(s): E11.9 - TYPE 2 DIABETES MELLITUS WITHOUT COMPLICATIONS Qualifiers: Diabetes mellitus type: type 2 Diabetes mellitus [employer] intermediary insulin use: with detention use Diabetes mellitus complication status: without complication Qualified Code(s): E11.9 - Type 2 diabetes mellitus without complications; Z79.4 - termite inspector (current) use of insulin (6) Liver mass Code(s): R16.0 - HEPATOMEGALY, NOT ELSEWHERE CLASSIFIED
[2018-09-05] MEDS: traZODone HCL 50 MG TABLET (FP) PO SCH (21:23)
[2018-09-06] MEDS: INSULIN SLIDING SCALE (NOVOLOG) 1 VIAL SQ SCH ×2 (06:17→11:59)
[2018-09-06] MEDS: SEVELAMER CARBONATE 800 MG TAB (FP) PO SCH ×3 (08:09→17:24)
[2018-09-06] MEDS: oxyCODONE HCL 5 MG TABLET PO PRN ×3 (08:31→21:36)
--- NOTE | 2018-09-06 10:03 | PN ---
GI Progress Note Subjective: No acute events planned for paracentesis today - Objective Vital Signs: Vital Signs Temperature 98.5 F 09/06/18 05:37 Pulse Rate 105 H 09/06/18 05:37 Respiratory Rate 18 09/06/18 05:37 Blood Pressure 110/76 09/06/18 05:37 O2 Sat by Pulse Oximetry (%) 98 09/05/18 22:00 Constitutional: Calm Eyes: No: Sclera Icterus Cardiovascular: Yes: Regular Rate and Rhythm Respiratory: Yes: CTA Bilaterally Gastrointestinal Inspection: Yes: Distention ...Auscultate: Yes: Normoactive Bowel Sounds ...Palpate: Yes: Hepatomegaly. No: Tenderness ...Percussion: No: Tympanitic Edema: Yes Edema: LLE: 1+, RLE: Trace Neurological: Yes: Alert Labs: CBC, BMP 09/04/18 07:15 09/04/18 07:15 INR, PTT INR 1.09 (0.83-1.09) 09/05/18 07:15 Fibrinogen 441.0 mg/dL (238-498) 09/05/18 07:15 Problem List - Problems (1) Cholangiocarcinoma Assessment/Plan: Discussed pathology findings with Mr. Bethobar Oncology following Given previous EGD findings of large antral ulcer with heaped up edges, discussed repeat EGD as well to exclude gastric source of tumor burden in liver. Discussed potential risks of the procedure like but not limited to bleeding, perforation requiring surgery to repair, infection, sedation medication effects. He has agreed to the procedure. For therapeutic paracentesis today Protonix 20mg once daily NPO after midnight except meds Code(s): C22.1 - INTRAHEPATIC BILE DUCT CARCINOMA
[2018-09-06] MEDS: FUROSEMIDE 40 MG TABLET (FP) PO SCH (11:58)
[2018-09-06] MEDS: CARVEDILOL 3.125 MG TABLET (FP) PO SCH ×2 (11:58→21:11)
[2018-09-06] MEDS: PANTOPRAZOLE 40 MG TABLET (FP) PO SCH ×2 (11:58→21:11)
--- NOTE | 2018-09-06 12:22 | PN ---
Progress Note, Physician Chief Complaint: Abdominal pain History of Present Illness: NAD Returned from therapeutic paracentesis, 5 L removed, feels better Has EGD scheduled for tomorrow AM, is skeptical about it, wants to speak to Dr Lane Previous EGD on 01/27/18-showed: 3 Non bleeding duodenal ulcers Large non bleeding ulcer of gastric antrum along with mild gastritis Severe Esophagitis - Current Medication List Current Medications: Active Medications Carvedilol (Coreg -) 3.125 mg PO BID [facility] Last Admin: 09/06/18 11:58 Dose: 3.125 mg Furosemide (Lasix -) 40 mg PO DAILY [facility] Last Admin: 09/06/18 11:58 Dose: 40 mg Insulin Aspart (Novolog Vial Sliding Scale -) 1 vial SQ ACHS [facility]; Protocol Last Admin: 09/06/18 11:59 Dose: Not Given Oxycodone HCl (Roxicodone -) 5 mg PO Q4H PRN PRN Reason: PAIN > 5 Last Admin: 09/06/18 08:31 Dose: 5 mg Pantoprazole Sodium (Protonix -) 40 mg PO BID [facility] Last Admin: 09/06/18 11:58 Dose: 40 mg Sevelamer Carbonate (Renvela -) 1,600 mg PO TIDCM [facility] Last Admin: 09/06/18 11:58 Dose: 1,600 mg Trazodone HCl (Desyrel -) 50 mg PO HS [facility] Last Admin: 09/05/18 21:23 Dose: 50 mg - Objective Vital Signs: Vital Signs Temperature 98.5 F 09/06/18 05:37 Pulse Rate 105 H 09/06/18 05:37 Respiratory Rate 18 09/06/18 05:37 Blood Pressure 110/76 09/06/18 05:37 O2 Sat by Pulse Oximetry (%) 98 09/05/18 22:00 Constitutional: Yes: Well Nourished, No Distress, Calm Cardiovascular: Yes: Regular Rate and Rhythm Respiratory: Yes: Regular Gastrointestinal: Yes: Normal Bowel Sounds, Soft, Ascites Musculoskeletal: Yes: WNL Extremities: Yes: WNL Edema: No Peripheral Pulses WNL: Yes Neurological: Yes: Alert, Oriented Psychiatric: Yes: Alert, Oriented Labs: CBC, BMP 09/04/18 07:15 09/04/18 07:15 INR, PTT INR 1.09 (0.83-1.09) 09/05/18 07:15 Fibrinogen 441.0 mg/dL (238-498) 09/05/18 07:15 Problem List - Problems (1) Cholangiocarcinoma Assessment/Plan: -Seen by GI -Repeat EGD in AM to exclude gastric source of tumor burden in liver -Hematology/oncology on board Code(s): C22.1 - INTRAHEPATIC BILE DUCT CARCINOMA (2) Ascites Assessment/Plan: -Surgery consult -5L removed today Code(s): R18.8 - OTHER ASCITES Qualifiers: Ascites type: malignant Qualified Code(s): R18.0 - Malignant ascites (3) ESRD (end stage renal disease) Assessment/Plan: -Nephrology on board -Dialysis TTa Code(s): N18.6 - END STAGE RENAL DISEASE Assessment/Plan See Problem list Physical therapy D/C BGM- last A1c 4.8 in 05/29
[2018-09-06] MEDS ORDERED: SODIUM CHLORIDE 250 ML IV PRN (13:37)
--- NOTE | 2018-09-06 13:37 | PN ---
Progress Note, Physician History of Present Illness: Pt seen and examined at bedside. He is awake and alert. he denies shortness of breath. He did have a paracentesis. He is refusing endoscopy. - Current Medication List Current Medications: Active Medications Carvedilol (Coreg -) 3.125 mg PO BID [facility] Last Admin: 09/06/18 11:58 Dose: 3.125 mg Furosemide (Lasix -) 40 mg PO DAILY [facility] Last Admin: 09/06/18 11:58 Dose: 40 mg Insulin Aspart (Novolog Vial Sliding Scale -) 1 vial SQ ACHS [facility]; Protocol Last Admin: 09/06/18 11:59 Dose: Not Given Oxycodone HCl (Roxicodone -) 5 mg PO Q4H PRN PRN Reason: PAIN > 5 Last Admin: 09/06/18 08:31 Dose: 5 mg Pantoprazole Sodium (Protonix -) 40 mg PO BID [facility] Last Admin: 09/06/18 11:58 Dose: 40 mg Sevelamer Carbonate (Renvela -) 1,600 mg PO TIDCM [facility] Last Admin: 09/06/18 11:58 Dose: 1,600 mg Trazodone HCl (Desyrel -) 50 mg PO HS [facility] Last Admin: 09/05/18 21:23 Dose: 50 mg - Objective Vital Signs: Vital Signs Temperature 98.5 F 09/06/18 05:37 Pulse Rate 105 H 09/06/18 05:37 Respiratory Rate 18 09/06/18 05:37 Blood Pressure 110/76 09/06/18 05:37 O2 Sat by Pulse Oximetry (%) 98 09/05/18 22:00 Constitutional: Yes: Calm Eyes: Yes: Conjunctiva Clear HENT: Yes: Atraumatic Cardiovascular: Yes: S1, S2 Respiratory: Yes: CTA Bilaterally Gastrointestinal: Yes: Normal Bowel Sounds, Soft, Ascites Genitourinary: Yes: WNL Musculoskeletal: Yes: WNL Edema: Yes Edema: LLE: 1+, RLE: 1+ Neurological: Yes: Oriented Psychiatric: Yes: Oriented Labs: CBC, BMP 09/04/18 07:15 09/04/18 07:15 INR, PTT INR 1.09 (0.83-1.09) 09/05/18 07:15 Fibrinogen 441.0 mg/dL (238-498) 09/05/18 07:15 Problem List - Problems (1) Abnormal liver CT Code(s): R93.2 - ABNORMAL FINDINGS ON DX IMAGING OF LIVER AND BILIARY TRACT (2) Ascites Code(s): R18.8 - OTHER ASCITES Qualifiers: Ascites type: malignant Qualified Code(s): R18.0 - Malignant ascites (3) ESRD (end stage renal disease) on dialysis Code(s): N18.6 - END STAGE RENAL DISEASE; Z99.2 - DEPENDENCE ON RENAL DIALYSIS Assessment/Plan Current Medications Generic Name Dose Route Start Last Admin Trade Name Freq PRN Reason Stop Dose Admin Carvedilol 3.125 mg 09/04/18 12:00 09/06/18 11:58 Coreg - PO 3.125 mg BID KRISTEN Administration Furosemide 40 mg 09/05/18 10:00 09/06/18 11:58 Lasix - PO 40 mg DAILY KRISTEN Administration Insulin Aspart 1 vial 09/04/18 16:30 09/06/18 11:59 Novolog Vial Sliding Scale - SQ Not Given ACHS KRISTEN Protocol Oxycodone HCl 5 mg 09/04/18 16:38 09/06/18 08:31 Roxicodone - PO 5 mg Q4H PRN Administration PAIN > 5 Pantoprazole Sodium 40 mg 09/04/18 12:00 09/06/18 11:58 Protonix - PO 40 mg BID KRISTEN Administration Sevelamer Carbonate 1,600 mg 09/04/18 19:45 09/06/18 11:58 Renvela - PO 1,600 mg TIDCM KRISTEN Administration Trazodone HCl 50 mg 09/04/18 22:00 09/05/18 21:23 Desyrel - PO 50 mg HS KRISTEN Administration Impression 1. ESRD 2. DM 3. ascites 4. HTN 5. obesity 6. anemia 7. iron deficiency 8. CHF 9. anemia 10. non compliance 11. liver mass 12. hx GI bleed 13. diabetic nephropathy 14. adenocarcinoma Plan - will arrange for HD tomorrow - will UF with HD - oncology follow up - filled out temp disability papers for pt for work - pt will need close outpt follow up, it is not clear if he is seeing a primary - monitor bp - will follow
--- NOTE | 2018-09-06 13:46 | PN ---
Progress Note (short form) - Note Progress Note: PROGRESS NOTE FOR HEMATOLOGY/ONCOLOGY Patient seen and examined by me at bedside Patient is s/p therapeutic paracentesis with 5L removed Patient offers no complaints Vital Signs Temperature 98.5 F 09/06/18 05:37 Pulse Rate 105 H 09/06/18 05:37 Respiratory Rate 18 09/06/18 05:37 Blood Pressure 110/76 09/06/18 05:37 O2 Sat by Pulse Oximetry (%) 98 09/05/18 22:00 PHYSICAL EXAMINATION: GENERAL: Awake, Alert, oriented X3 and in no acute distress EYES: PERRL, (+) Sclera Icterus MOUTH: No oral thrush NECK: (-) Lymphadenopathy HEART: RRR, Normal S1 and S2 LUNGS: Decreased breath sounds bilaterally with no wheezes or crackles, no accessory muscle use ABDOMEN: Distended with midabdominal scars. Nontender, normoactive bowel sounds. (+) hepatomegaly EXTREMITIES: 1+ Pitting edema bilaterally NEUROLOGY: (-) [facility] ASSESSMENT AND PLAN: Patient is a 53 year old male who presented with worsening abdominal distention and was found to have ascites. Patient admitted for therapuetic paracentesis. Problem List: Liver mass Adenocarcinoma on Liver biopsy (08/30/18) Ascites Iron Def Anemia ESRD on HD NIDDMII w/ Diabetic Neuropathy HTN History of GI bleed Diastolic CHF Plan: Patient today had paracentesis with 5L drained. Patient has history of noncompliance and was found to have on last admission a liver mass on CT abdomen with Last AFP (08/18/18) >70K and mod to poorly differentiated, most consistent with cholangiocarcinoma. Patient however left AMA on last admission. Microsatellite testing added to biopsy Scheduled for EGD tomorrow to rule out GI source of malignancy.
[2018-09-06] MEDS: traZODone HCL 50 MG TABLET (FP) PO SCH (21:11)
[2018-09-07] MEDS: oxyCODONE HCL 5 MG TABLET PO PRN ×3 (03:39→21:34)
[2018-09-07] MEDS: SEVELAMER CARBONATE 800 MG TAB (FP) PO SCH ×3 (08:41→17:38)
[2018-09-07] MEDS ORDERED: EPOETIN ALFA 3,000 UNIT/1 ML ML IVPUSH ONE (10:00)
[2018-09-07 10:22] LABS: BASO % 0.3 % (0-2.0); EOS % 0.6 % (0-4.5); HEMATOCRIT 27.2 % (35.4-49); HEMOGLOBIN 9.4 GM/dL (11.7-16.9); LYMPH % 9.1 % (8-40); MCH 34.1 pg (25.7-33.7); MCHC 34.5 g/dl (32.0-35.9); MEAN CELL VOLUME 98.6 fl (80-96); MEAN PLT VOLUME 9.9 fl (7.5-11.1); MONO % 13.9 % (3.8-10.2); NEUT % 76.1 % (42.8-82.8); PLATELET COUNT 179 K/MM3 (134-434); RBC 2.76 M/mm3 (4.00-5.60); RDW 17.3 % (11.9-15.9); WHITE BLOOD COUNT 10.6 K/mm3 (4.0-10.0)
--- NOTE | 2018-09-07 10:27 | PN ---
Progress Note, Physician Chief Complaint: Abdominal pain History of Present Illness: NAD Had therapeutic paracentesis yesterday, 5 L removed, feels better Refused EGD today, wants to speak to Dr Lane Previous EGD on 01/27/18-showed: 3 Non bleeding duodenal ulcers Large non bleeding ulcer of gastric antrum along with mild gastritis Severe Esophagitis - Current Medication List Current Medications: Active Medications Albumin Human (Albumin Human 25%) 12.5 gm IVPB Q30M [facility] Carvedilol (Coreg -) 3.125 mg PO BID [facility] Last Admin: 09/06/18 21:11 Dose: Not Given Furosemide (Lasix -) 40 mg PO DAILY [facility] Last Admin: 09/06/18 11:58 Dose: 40 mg Sodium Chloride (Normal Saline -) 250 mls @ 3,000 mls/hr IV PRN PRN PRN Reason: Hypotension during Dialysis Stop: 09/07/18 13:37 Oxycodone HCl (Roxicodone -) 5 mg PO Q4H PRN PRN Reason: PAIN > 5 Last Admin: 09/07/18 03:39 Dose: 5 mg Pantoprazole Sodium (Protonix -) 40 mg PO BID [facility] Last Admin: 09/06/18 21:11 Dose: 40 mg Sevelamer Carbonate (Renvela -) 1,600 mg PO TIDCM [facility] Last Admin: 09/07/18 08:41 Dose: 1,600 mg Trazodone HCl (Desyrel -) 50 mg PO HS [facility] Last Admin: 09/06/18 21:11 Dose: 50 mg - Objective Vital Signs: Vital Signs Temperature 98.4 F 09/07/18 09:50 Pulse Rate 101 H 09/07/18 09:55 Respiratory Rate 18 09/07/18 09:55 Blood Pressure 96/69 09/07/18 09:55 O2 Sat by Pulse Oximetry (%) 98 09/06/18 22:00 Constitutional: Yes: Well Nourished, No Distress, Calm Cardiovascular: Yes: Regular Rate and Rhythm Respiratory: Yes: Regular Gastrointestinal: Yes: Normal Bowel Sounds, Soft, Ascites Musculoskeletal: Yes: WNL Extremities: Yes: WNL Edema: No Peripheral Pulses WNL: Yes Neurological: Yes: Alert, Oriented Psychiatric: Yes: Alert, Oriented Labs: INR, PTT INR 1.09 (0.83-1.09) 09/05/18 07:15 Fibrinogen 441.0 mg/dL (238-498) 09/05/18 07:15 Problem List - Problems (1) Cholangiocarcinoma Assessment/Plan: -Seen by GI -Refused EGD -Awaiting Hematology/oncology consult Code(s): C22.1 - INTRAHEPATIC BILE DUCT CARCINOMA (2) Ascites Assessment/Plan: -Surgery consult -5L removed today Code(s): R18.8 - OTHER ASCITES Qualifiers: Ascites type: malignant Qualified Code(s): R18.0 - Malignant ascites (3) ESRD (end stage renal disease) Assessment/Plan: -Nephrology on board -Dialysis TTa Code(s): N18.6 - END STAGE RENAL DISEASE Assessment/Plan See Problem list Physical therapy D/C BGM- last A1c 4.8 in 05/29
[2018-09-07] MEDS: ALBUMIN HUMAN 25% 12.5 GM/50 ML VIAL IVPB SCH ×3 (11:00→12:40)
[2018-09-07 11:16] LABS: ANION GAP 15 MMOL/L (8-16); BLOOD UREA NITROGEN 63 mg/dL (7-18); CHLORIDE 92 mmol/L (98-107); CO2 21 mmol/L (21-32); GLUCOSE,RANDOM 119 mg/dL (74-106); SODIUM 128 mmol/L (136-145)
--- NOTE | 2018-09-07 11:20 | DS ---
Physical Examination Vital Signs: Vital Signs Temperature 98.4 F 09/07/18 09:50 Pulse Rate 102 H 09/07/18 10:55 Respiratory Rate 18 09/07/18 10:55 Blood Pressure 83/55 L 09/07/18 10:55 O2 Sat by Pulse Oximetry (%) 98 09/06/18 22:00 Findings/Remarks: This is a 53 y/o man from home ESRD (HD- ,, ), HTN, DM, GI Bleed, Anemia, Former ETOH Abuse, removal of PD Catheter, s/p liver biopsy 08/20/18, showing possible hepatic cholangeocarcinoma (pt is not aware yet, has appt with [facility] on Sep 15). Who presents to the ED with increased abdominal pain and distention. Patient was last seen on 08/30/18 left AMA after having paracentesis and hemodialysis. Patient reports having fluid drained from his abdomen twice. Patient denies fever, chills, cough, dizziness, SOB, CP, diarrhea , constipation. Constitutional: Yes: Well Nourished, No Distress, Calm Cardiovascular: Yes: Regular Rate and Rhythm Respiratory: Yes: Regular Gastrointestinal: Yes: Normal Bowel Sounds, Soft, Ascites Musculoskeletal: Yes: WNL Extremities: Yes: WNL Edema: No Peripheral Pulses WNL: Yes Neurological: Yes: Alert, Oriented Psychiatric: Yes: Alert, Oriented Labs: CBC, BMP 09/07/18 09:50 09/07/18 09:50 Discharge Summary Reason For Visit: ASCITES; ILEUS Current Active Problems Cholangiocarcinoma (Acute) Hospital Course: Laboratory Last Values WBC 10.6 K/mm3 (4.0-10.0) H 09/07/18 09:50 RBC 2.76 M/mm3 (4.00-5.60) L 09/07/18 09:50 Hgb 9.4 GM/dL (11.7-16.9) L 09/07/18 09:50 Hct 27.2 % (35.4-49) L D 09/07/18 09:50 MCV 98.6 fl (80-96) H 09/07/18 09:50 MCH 34.1 pg (25.7-33.7) H 09/07/18 09:50 MCHC 34.5 g/dl (32.0-35.9) 09/07/18 09:50 RDW 17.3 % (11.9-15.9) H 09/07/18 09:50 Plt Count 179 K/MM3 (134-434) D 09/07/18 09:50 MPV 9.9 fl (7.5-11.1) D 09/07/18 09:50 Absolute Neuts (auto) 8.1 K/mm3 (1.5-8.0) H 09/07/18 09:50 Neutrophils % 76.1 % (42.8-82.8) 09/07/18 09:50 Neutrophils % (Manual) 76.5 % (42.8-82.8) 09/04/18 07:15 Band Neutrophils % 0.0 % 09/04/18 07:15 Lymphocytes % 9.1 % (8-40) 09/07/18 09:50 Lymphocytes % (Manual) 6.9 % (8-40) L 09/04/18 07:15 Monocytes % 13.9 % (3.8-10.2) H 09/07/18 09:50 Monocytes % (Manual) 8 % (3.8-10.2) 09/04/18 07:15 Eosinophils % 0.6 % (0-4.5) 09/07/18 09:50 Eosinophils % (Manual) 1.0 % (0-4.5) 09/04/18 07:15 Basophils % 0.3 % (0-2.0) 09/07/18 09:50 Basophils % (Manual) 1.9 % (0-2.0) D 09/04/18 07:15 Myelocytes % (Man) 2 % (0-2) D 09/04/18 07:15 Promyelocytes % (Man) 0 % (0-2) 09/04/18 07:15 Blast Cells % (Manual) 0 % (0-0) 09/04/18 07:15 Nucleated RBC % 0 % (0-0) 09/07/18 09:50 Metamyelocytes 1 % (0-2) D 09/04/18 07:15 Hypochromia 0 09/04/18 07:15 Platelet Estimate Normal 09/04/18 07:15 Platelet Comment Present 09/03/18 16:57 Polychromasia 1+ 09/04/18 07:15 Poikilocytosis 0 09/04/18 07:15 Anisocytosis 1+ 09/04/18 07:15 Microcytosis 0 09/04/18 07:15 Macrocytosis 1+ 09/04/18 07:15 Target Cells 1+ 09/03/18 16:57 PT with INR 12.90 SEC (9.7-13.0) 09/05/18 07:15 INR 1.09 (0.83-1.09) 09/05/18 07:15 PTT (Actin FS) 32.0 SECONDS (25.2-36.5) 09/05/18 07:15 Fibrinogen 441.0 mg/dL (238-498) 09/05/18 07:15 Sodium 128 mmol/L (136-145) L 09/07/18 09:50 Potassium 5.0 mmol/L (3.5-5.1) 09/07/18 09:50 Chloride 92 mmol/L (98-107) L 09/07/18 09:50 Carbon Dioxide 21 mmol/L (21-32) 09/07/18 09:50 Anion Gap 15 MMOL/L (8-16) 09/07/18 09:50 BUN 63 mg/dL (7-18) H 09/07/18 09:50 Creatinine 8.9 mg/dL (0.55-1.3) H* 09/04/18 07:15 Creat Clearance w eGFR 5.06 (>60) 09/07/18 09:50 POC Glucometer 131 UNITS (80-120) 09/05/18 11:24 Random Glucose 119 mg/dL (74-106) H 09/07/18 09:50 Calcium 7.0 mg/dL (8.5-10.1) L 09/07/18 09:50 Phosphorus 4.1 mg/dL (2.5-4.9) 09/03/18 16:57 Magnesium 2.1 mg/dL (1.8-2.4) 09/03/18 16:57 Total Bilirubin 1.0 mg/dL (0.2-1) 09/03/18 16:57 AST 526 U/L (15-37) H 09/03/18 16:57 ALT 223 U/L (13-61) H 09/03/18 16:57 Alkaline Phosphatase 2143 U/L (45-117) H 09/03/18 16:57 Total Protein 5.7 g/dl (6.4-8.2) L 09/03/18 16:57 Albumin 1.7 g/dl (3.4-5.0) L 09/03/18 16:57 Condition: Stable - Instructions Referrals: Billy Becerra MD [Primary Care Provider] - Santiago Lane MD [Staff Physician] - Anthony Dorsey DO [Staff Physician] - Disposition: HOME - Home Medications Comprehensive Discharge Medication List: Ambulatory Orders Sevelamer Carbonate [Renvela -] 1,600 mg PO TID 01/27/18 traZODone HCL [Trazodone HCl] 50 mg PO HS 04/07/18 Pantoprazole Sodium 40 mg PO BID 05/04/18 Docusate Sodium [Stool Softener] 100 mg PO ASDIR 08/16/18 Simethicone [Gas-X] 125 mg PO ASDIR 08/16/18 Carvedilol 3.125 mg PO BID 08/18/18 Furosemide [Lasix] 40 mg PO DAILY 08/18/18
[2018-09-07 11:21] LABS: CREATININE 10.8 mg/dL (0.55-1.3)
[2018-09-07 11:24] LABS: ALBUMIN 1.6 g/dl (3.4-5.0); BILIRUBIN,DIRECT 0.8 mg/dL (0.0-0.2); BILIRUBIN,TOTAL 1.1 mg/dL (0.2-1); TOT PROT 5.2 g/dl (6.4-8.2)
[2018-09-07] MEDS ORDERED: SODIUM CHLORIDE 250 ML IV PRN (13:36)
--- NOTE | 2018-09-07 13:36 | PN ---
Progress Note, Physician History of Present Illness: Pt seen and examined at bedside. He is tolerating HD. He does get shortness of breath when he lays down and has edema. He does not want the endoscopy. - Current Medication List Current Medications: Active Medications Albumin Human (Albumin Human 25%) 12.5 gm IVPB Q30M [facility] Last Admin: 09/07/18 12:40 Dose: Not Given Carvedilol (Coreg -) 3.125 mg PO BID [facility] Last Admin: 09/06/18 21:11 Dose: Not Given Furosemide (Lasix -) 40 mg PO DAILY [facility] Last Admin: 09/06/18 11:58 Dose: 40 mg Sodium Chloride (Normal Saline -) 250 mls @ 3,000 mls/hr IV PRN PRN PRN Reason: Hypotension during Dialysis Stop: 09/07/18 13:37 Oxycodone HCl (Roxicodone -) 5 mg PO Q4H PRN PRN Reason: PAIN > 5 Last Admin: 09/07/18 03:39 Dose: 5 mg Pantoprazole Sodium (Protonix -) 40 mg PO BID [facility] Last Admin: 09/06/18 21:11 Dose: 40 mg Sevelamer Carbonate (Renvela -) 1,600 mg PO TIDCM [facility] Last Admin: 09/07/18 08:41 Dose: 1,600 mg Trazodone HCl (Desyrel -) 50 mg PO HS [facility] Last Admin: 09/06/18 21:11 Dose: 50 mg - Objective Vital Signs: Vital Signs Temperature 98.4 F 09/07/18 09:50 Pulse Rate 105 H 09/07/18 13:10 Respiratory Rate 18 09/07/18 13:10 Blood Pressure 103/71 09/07/18 13:10 O2 Sat by Pulse Oximetry (%) 98 09/06/18 22:00 Constitutional: Yes: Calm Eyes: Yes: Conjunctiva Clear HENT: Yes: Atraumatic Cardiovascular: Yes: S1, S2 Respiratory: Yes: CTA Bilaterally Gastrointestinal: Yes: Soft, Ascites Genitourinary: Yes: WNL Musculoskeletal: Yes: WNL Edema: Yes Edema: LLE: 2+, RLE: 2+ Neurological: Yes: Oriented Psychiatric: Yes: Oriented Labs: CBC, BMP 09/07/18 09:50 09/07/18 09:50 INR, PTT INR 1.09 (0.83-1.09) 09/05/18 07:15 Fibrinogen 441.0 mg/dL (238-498) 09/05/18 07:15 Problem List - Problems (1) Abnormal liver CT Code(s): R93.2 - ABNORMAL FINDINGS ON DX IMAGING OF LIVER AND BILIARY TRACT (2) Ascites Code(s): R18.8 - OTHER ASCITES Qualifiers: Ascites type: malignant Qualified Code(s): R18.0 - Malignant ascites (3) ESRD (end stage renal disease) on dialysis Code(s): N18.6 - END STAGE RENAL DISEASE; Z99.2 - DEPENDENCE ON RENAL DIALYSIS Assessment/Plan Current Medications Generic Name Dose Route Start Last Admin Trade Name Freq PRN Reason Stop Dose Admin Albumin Human 12.5 gm 09/07/18 10:00 09/07/18 12:40 Albumin Human 25% IVPB Not Given Q30M KRISTEN Carvedilol 3.125 mg 09/04/18 12:00 09/06/18 21:11 Coreg - PO Not Given BID KRISTEN Furosemide 40 mg 09/05/18 10:00 09/06/18 11:58 Lasix - PO 40 mg DAILY KRISTEN Administration Sodium Chloride 250 mls @ 3,000 mls/hr 09/06/18 13:37 Normal Saline - IV 09/07/18 13:37 PRN PRN Hypotension during Dialysis Oxycodone HCl 5 mg 09/04/18 16:38 09/07/18 03:39 Roxicodone - PO 5 mg Q4H PRN Administration PAIN > 5 Pantoprazole Sodium 40 mg 09/04/18 12:00 09/06/18 21:11 Protonix - PO 40 mg BID KRISTEN Administration Sevelamer Carbonate 1,600 mg 09/04/18 19:45 09/07/18 08:41 Renvela - PO 1,600 mg TIDCM KRISTEN Administration Trazodone HCl 50 mg 09/04/18 22:00 09/06/18 21:11 Desyrel - PO 50 mg HS KRISTEN Administration Impression 1. ESRD 2. DM 3. ascites 4. HTN 5. obesity 6. anemia 7. iron deficiency 8. CHF 9. anemia 10. non compliance 11. liver mass 12. hx GI bleed 13. diabetic nephropathy 14. adenocarcinoma Plan - HD today - will arrange for another HD session tomorrow for more volume removal - renal diet - hold discharge today - discussed with medical team - pt wants script for outpt paracentesis, he says he will not be able to get to his pmd in time. will give him a script for IR. Pt will need to follow with GI, pmd and oncology. Compliance has been an issue - monitor bp - will follow
[2018-09-07] MEDS: PANTOPRAZOLE 40 MG TABLET (FP) PO SCH ×2 (13:41→21:31)
[2018-09-07] MEDS: CARVEDILOL 3.125 MG TABLET (FP) PO SCH ×2 (13:41→21:34)
[2018-09-07] MEDS: FUROSEMIDE 40 MG TABLET (FP) PO SCH (13:41)
[2018-09-07] MEDS ORDERED: DOCUSATE SODIUM 100 MG CAPSULE (FP) PO ONE (18:21)
[2018-09-07] MEDS: traZODone HCL 50 MG TABLET (FP) PO SCH (21:31)
[2018-09-08] MEDS ORDERED: PT OWN MED DRAWER 7, Y5N ONE (06:37)
[2018-09-08] MEDS: oxyCODONE HCL 5 MG TABLET PO PRN ×2 (06:40→11:58)
[2018-09-08] MEDS ORDERED: EPOETIN ALFA 3,000 UNIT/1 ML ML IVPUSH ONE (07:15)
[2018-09-08] MEDS: SEVELAMER CARBONATE 800 MG TAB (FP) PO SCH ×2 (08:34→11:58)
[2018-09-08 08:46] LABS: HEMATOCRIT 27.9 % (35.4-49); HEMOGLOBIN 8.9 GM/dL (11.7-16.9); MCHC 31.8 g/dl (32.0-35.9); MEAN CELL VOLUME 100.8 fl (80-96); PLATELET COUNT 152 K/MM3 (134-434); RBC 2.77 M/mm3 (4.00-5.60); RDW 17.4 % (11.9-15.9); WHITE BLOOD COUNT 9.5 K/mm3 (4.0-10.0)
[2018-09-08] MEDS: ALBUMIN HUMAN 25% 12.5 GM/50 ML VIAL IVPB SCH ×4 (09:15→10:20)
--- NOTE | 2018-09-08 09:23 | DS ---
Physical Examination Vital Signs: Vital Signs Temperature 97.8 F 09/08/18 08:00 Pulse Rate 107 H 09/08/18 08:10 Respiratory Rate 18 09/08/18 08:10 Blood Pressure 123/66 09/08/18 08:10 O2 Sat by Pulse Oximetry (%) 98 09/07/18 21:00 Cardiovascular: Yes: S1, S2 Respiratory: Yes: Regular, CTA Bilaterally Gastrointestinal: Yes: Normal Bowel Sounds, Soft, Ascites, Distention Labs: CBC, BMP 09/08/18 08:10 Discharge Summary Reason For Visit: ASCITES; ILEUS Current Active Problems Cholangiocarcinoma (Acute) Hospital Course: This is a 53 y/o man from home ESRD (HD- ,, ), HTN, DM, GI Bleed, Anemia, Former ETOH Abuse, removal of PD Catheter, s/p liver biopsy 08/20/18, showing possible hepatic cholangeocarcinoma (pt is not aware yet, has appt with [facility] on Sep 15). Who presents to the ED with increased abdominal pain and distention. Patient was last seen on 08/30/18 left AMA after having paracentesis and hemodialysis. Patient reports having fluid drained from his abdomen twice. Patient denies fever, chills, cough, dizziness, SOB, CP, diarrhea , constipation. - Problems (1) Cholangiocarcinoma Assessment/Plan: -Seen by GI -Refused EGD -Awaiting Hematology/oncology consult Code(s): C22.1 - INTRAHEPATIC BILE DUCT CARCINOMA (2) Ascites Assessment/Plan: -Surgery consult -5L removed today Code(s): R18.8 - OTHER ASCITES Qualifiers: Ascites type: malignant Qualified Code(s): R18.0 - Malignant ascites (3) ESRD (end stage renal disease) Assessment/Plan: -Nephrology on board -Dialysis TTa Code(s): N18.6 - END STAGE RENAL DISEASE See Problem list Physical therapy D/C BGM- last A1c 4.8 in 05/29 Condition: Stable - Instructions Referrals: Anthony Dorsey DO [Staff Physician] - Billy Becerra MD [Primary Care Provider] - Santiago Lane MD [Staff Physician] - Disposition: HOME - Home Medications Comprehensive Discharge Medication List: Ambulatory Orders Sevelamer Carbonate [Renvela -] 1,600 mg PO TID 01/27/18 traZODone HCL [Trazodone HCl] 50 mg PO HS 04/07/18 Pantoprazole Sodium 40 mg PO BID 05/04/18 Docusate Sodium [Stool Softener] 100 mg PO ASDIR 08/16/18 Simethicone [Gas-X] 125 mg PO ASDIR 08/16/18 Carvedilol 3.125 mg PO BID 08/18/18 Furosemide [Lasix] 40 mg PO DAILY 08/18/18 oxyCODONE HCL [Roxicodone -] 5 mg PO Q8H PRN #15 tablet MDD 3 09/07/18
[2018-09-08 09:30] LABS: ANION GAP 11 MMOL/L (8-16); BLOOD UREA NITROGEN 46 mg/dL (7-18); CHLORIDE 96 mmol/L (98-107); CO2 25 mmol/L (21-32); GLUCOSE,RANDOM 152 mg/dL (74-106); POTASSIUM 4.4 mmol/L (3.5-5.1); SODIUM 132 mmol/L (136-145)
[2018-09-08 09:38] LABS: CALCIUM 6.8 mg/dL (8.5-10.1); CREATININE 8.1 mg/dL (0.55-1.3)
[2018-09-08] MEDS ORDERED: PARICALCITOL 5 MCG/ML VIAL IVPUSH ONE (10:30)
[2018-09-08] MEDS ORDERED: CALCIUM 500MG/VIT-D 200 UNITS COMBO TABLET (FP) PO SCH (11:00)
--- NOTE | 2018-09-08 11:01 | PN ---
Progress Note, Physician History of Present Illness: Pt seen and examined at bedside. He is awake and alert. He is tolerating HD. He denies shortness of breath. - Current Medication List Current Medications: Active Medications Calcium Carbonate/Cholecalciferol (Os-Pawan 500+D -) 2 tab PO DAILY [facility] Carvedilol (Coreg -) 3.125 mg PO BID [facility] Last Admin: 09/07/18 21:34 Dose: Not Given Furosemide (Lasix -) 40 mg PO DAILY [facility] Last Admin: 09/07/18 13:41 Dose: 40 mg Sodium Chloride (Normal Saline -) 250 mls @ 3,000 mls/hr IV PRN PRN PRN Reason: Hypotension during Dialysis Stop: 09/08/18 13:36 Oxycodone HCl (Roxicodone -) 5 mg PO Q4H PRN PRN Reason: PAIN > 5 Last Admin: 09/08/18 06:40 Dose: 5 mg Pantoprazole Sodium (Protonix -) 40 mg PO BID [facility] Last Admin: 09/07/18 21:31 Dose: 40 mg Sevelamer Carbonate (Renvela -) 1,600 mg PO TIDCM [facility] Last Admin: 09/08/18 08:34 Dose: Not Given Trazodone HCl (Desyrel -) 50 mg PO HS [facility] Last Admin: 09/07/18 21:31 Dose: 50 mg - Objective Vital Signs: Vital Signs Temperature 97.8 F 09/08/18 08:00 Pulse Rate 110 H 09/08/18 09:10 Respiratory Rate 18 09/08/18 09:10 Blood Pressure 94/56 L 09/08/18 09:10 O2 Sat by Pulse Oximetry (%) 98 09/07/18 21:00 Constitutional: Yes: Calm Eyes: Yes: Conjunctiva Clear HENT: Yes: Atraumatic Cardiovascular: Yes: S1, S2 Respiratory: Yes: CTA Bilaterally Gastrointestinal: Yes: Soft, Ascites Genitourinary: Yes: WNL Musculoskeletal: Yes: WNL Edema: Yes Edema: LLE: 1+, RLE: 1+ Neurological: Yes: Oriented Psychiatric: Yes: Oriented Labs: CBC, BMP 09/08/18 08:10 09/08/18 08:10 INR, PTT INR 1.09 (0.83-1.09) 09/05/18 07:15 Fibrinogen 441.0 mg/dL (238-498) 09/05/18 07:15 Problem List - Problems (1) Abnormal liver CT Code(s): R93.2 - ABNORMAL FINDINGS ON DX IMAGING OF LIVER AND BILIARY TRACT (2) Ascites Code(s): R18.8 - OTHER ASCITES Qualifiers: Ascites type: malignant Qualified Code(s): R18.0 - Malignant ascites (3) ESRD (end stage renal disease) on dialysis Code(s): N18.6 - END STAGE RENAL DISEASE; Z99.2 - DEPENDENCE ON RENAL DIALYSIS Assessment/Plan Current Medications Generic Name Dose Route Start Last Admin Trade Name Freq PRN Reason Stop Dose Admin Calcium Carbonate/Cholecalciferol 2 tab 09/08/18 11:00 Os-Pawan 500+D - PO DAILY [facility] Carvedilol 3.125 mg 09/04/18 12:00 09/07/18 21:34 Coreg - PO Not Given BID [facility] Furosemide 40 mg 09/05/18 10:00 09/07/18 13:41 Lasix - PO 40 mg DAILY [facility]STEN Administration Sodium Chloride 250 mls @ 3,000 mls/hr 09/07/18 13:36 Normal Saline - IV 09/08/18 13:36 PRN PRN Hypotension during Dialysis Oxycodone HCl 5 mg 09/04/18 16:38 09/08/18 06:40 Roxicodone - PO 5 mg Q4H PRN Administration PAIN > 5 Pantoprazole Sodium 40 mg 09/04/18 12:00 09/07/18 21:31 Protonix - PO 40 mg BID [facility]RISTEN Administration Sevelamer Carbonate 1,600 mg 09/04/18 19:45 09/08/18 08:34 Renvela - PO Not Given TIDCM [facility] Trazodone HCl 50 mg 09/04/18 22:00 09/07/18 21:31 Desyrel - PO 50 mg HS [facility]ST[facility] Administration Impression 1. ESRD 2. DM 3. ascites 4. HTN 5. obesity 6. anemia 7. iron deficiency 8. CHF 9. anemia 10. non compliance 11. liver mass 12. hx GI bleed 13. diabetic nephropathy 14. adenocarcinoma Plan - pt tolerating HD - set up extra treatment for volume - pt is not compliant as outpt - will need follow up with oncology, gi and pmd - hd is set up already - will replace calcium and give zemplar - will follow
[2018-09-08 11:29] VITALS: BP 103/70; PULSE 110
[2018-09-08] MEDS: CARVEDILOL 3.125 MG TABLET (FP) PO SCH (11:57)
[2018-09-08] MEDS: FUROSEMIDE 40 MG TABLET (FP) PO SCH (11:58)
[2018-09-08] MEDS: PANTOPRAZOLE 40 MG TABLET (FP) PO SCH (11:58)
[2018-09-08 13:02] LABS: CREATININE 3.5 mg/dL (0.55-1.3)
--- NOTE | 2018-09-08 13:45 | PN ---
Progress Note (short form) - Note Progress Note: PROGRESS NOTE FOR HEMATOLOGY/ONCOLOGY Patient seen and examined by me at bedside Patient offers no complaints and states he is ready to go home Patient denied EGD yesterday Patient had HD today and tolerated it well Otherwise, patient denies fever, chills, nausea, vomiting, abdominal pain, chest pain, palpitations, shortness of breath Vital Signs Temperature 97.8 F 09/08/18 08:00 Pulse Rate 110 H 09/08/18 11:28 Respiratory Rate 18 09/08/18 11:28 Blood Pressure 103/70 09/08/18 11:28 O2 Sat by Pulse Oximetry (%) 98 09/07/18 21:00 PHYSICAL EXAMINATION: GENERAL: Awake, Alert, oriented X3 and in no acute distress EYES: PERRL, (+) Sclera Icterus MOUTH: No oral thrush NECK: (-) Lymphadenopathy HEART: RRR, Normal S1 and S2 LUNGS: Decreased breath sounds bilaterally with no wheezes or crackles, no accessory muscle use ABDOMEN: Distended with midabdominal scars. Nontender, normoactive bowel sounds. (+) hepatomegaly EXTREMITIES: 1+ Pitting edema bilaterally Laboratory Tests 09/08/18 08:10 09/08/18 11:10 ASSESSMENT AND PLAN: Patient is a 53 year old male who presented with worsening abdominal distention and was found to have ascites. Patient admitted for therapuetic paracentesis. Problem List: Liver mass Adenocarcinoma on Liver biopsy (08/30/18) Ascites Iron Def Anemia ESRD on HD NIDDMII w/ Diabetic Neuropathy HTN History of GI bleed Diastolic CHF Plan: -Patient has history of noncompliance and was found to have on last admission a liver mass on CT abdomen with Last AFP (08/18/18) >70K and mod to poorly differentiated, most consistent with cholangiocarcinoma. Patient however left AMA on last admission. -Patient refused EGD yesterday to rule out GI malignancy -Patient being discharged but has appointment with Dr. Lane, 09/15/18.
[2018-09-08 14:03] VITALS: TEMP 98
== END 2018-09-08 15:02 | disposition home or self-care (01) | DRG 947 ==
LOC: JER 13:44 → JERBED 19:10 → J6S 21:33
PROVIDERS: ADMIT Internal Medicine; ATTEND Family Medicine
DX: R18.8 Other ascites (principal); N18.6 End stage renal disease; C22.1 Intrahepatic bile duct carcinoma; I13.2 Hypertensive heart and chronic kidney disease with heart failure and with stage 5 chronic kidney disease, or end stage renal disease; E11.22 Type 2 diabetes mellitus with diabetic chronic kidney disease; Z99.2 Dependence on renal dialysis; E78.5 Hyperlipidemia, unspecified; E66.9 Obesity, unspecified; Z68.30 Body mass index [BMI] 30.0-30.9, adult; D63.1 Anemia in chronic kidney disease; D50.9 Iron deficiency anemia, unspecified; Z91.14 Patient's other noncompliance with medication regimen; E11.21 Type 2 diabetes mellitus with diabetic nephropathy
CPT/HCPCS: 36415; 71045-TC-FY; 74176-TC; 76942-TC; 80048; 80053; 80076; 82565; 82962; 83735; 84100; 84520; 85025; 85027; 85384; 85610; 85730; 93005; 93010; 99283-25; J0885; P9047

== ENCOUNTER → 2018-09-14 | Day surgery (SDC) | payer BC | END | disposition home or self-care (01) | LOC: JRADIR 10:11 | PROVIDERS: ATTEND Internal Medicine | PROC: 0W9G3ZZ Drainage of Peritoneal Cavity, Percutaneous Approach (ICD-10-PCS; principal; 2018-09-14) | PROC: BW40ZZZ Ultrasonography of Abdomen (ICD-10-PCS; 2018-09-14) | DX: R18.8 Other ascites (principal) | CPT/HCPCS: 76942-TC ==

== ENCOUNTER → 2018-09-20 | Day surgery (SDC) | payer BC | END | disposition home or self-care (01) | LOC: JRADIR 08:57 | PROVIDERS: ATTEND Internal Medicine | PROC: 0W9G3ZZ Drainage of Peritoneal Cavity, Percutaneous Approach (ICD-10-PCS; principal; 2018-09-20) | PROC: BW40ZZZ Ultrasonography of Abdomen (ICD-10-PCS; 2018-09-20) | DX: R18.8 Other ascites (principal); N18.6 End stage renal disease; Z99.2 Dependence on renal dialysis; C22.7 Other specified carcinomas of liver | CPT/HCPCS: 76942-TC ==

== ENCOUNTER 2018-09-24 09:24 | Inpatient (IN) | payer BC ==
--- NOTE | 2018-09-24 09:37 | PDOC ---
History of Present Illness - General Chief Complaint: Shortness of Breath Stated Complaint: SOB Time Seen by Provider: 09/24/18 09:35 - History of Present Illness Initial Comments: The patient is a 53M w/ a history of DM, renal failure (on iHD MWF, last on W), CHF, and liver lesions concerning for cancer (but not disclosed to patient per notes) who presents for evaluation of 3d of shortness of breath that acutely worsened this morning which is why he chose to present today. He endorses NBNB emesis x2 yesterday. He denies recent illness, fevers, cough, chest pain, or diarrhea. Denies pain at the site of his dialysis catheter and reports it is cleaned at every session. The patient also reports generalized abdominal pain 2/2 acites. He has required 3 therapeutic paracenteses in the past and was scheduled for one today w/ Dr. Cerna. Reports that he has had a recent liver bx, but does not yet know the results Heme/onc: Dr. Lane 09/24/18 10:37 Timing/Duration: unsure Past History - Past Medical History Allergies/Adverse Reactions: Allergies Allergy/AdvReac Type Severity Reaction Status Date / Time Penicillins Allergy Intermediate Verified 09/24/18 09:46 Home Medications: Ambulatory Orders Sevelamer Carbonate [Renvela -] 1,600 mg PO TID 01/27/18 traZODone HCL [Trazodone HCl] 50 mg PO HS 04/07/18 Pantoprazole Sodium 40 mg PO BID 05/04/18 Furosemide [Lasix] 40 mg PO DAILY 08/18/18 Anemia: Yes Asthma: No Cancer: Yes Cardiac Disorders: No CVA: No COPD: No CHF: No Dementia: No Diabetes: Yes Dialysis: Yes (,,) GI Disorders: Yes (gi bleed.) Disorders: Yes (on dialysis) HTN: Yes Hypercholesterolemia: Yes Kidney Stones: (KIDNEY DISEASE) Liver Disease: Yes (liver mass.) Seizures: No Thyroid Disease: No - Surgical History Abdominal Surgery: Yes (liver biopsy) - Immunization History Td Vaccination: Yes TDAP Vaccination: Yes Immunization Up to Date: Yes - Suicide/Smoking/Psychosocial Hx Smoking Status: No Smoking History: Smoker current status UNK Have you smoked in the past 12 months: No Number of Cigarettes Smoked Daily: 0 Hx Alcohol Use: No Drug/Substance Use Hx: No Substance Use Type: None, Alcohol Hx Substance Use Treatment: No Review of Systems - Review of Systems Able to Perform ROS?: Yes Comments:: GENERAL/CONSTITUTIONAL: No fever or chills. No weakness HEAD, EYES, EARS, NOSE AND THROAT: No change in vision. No ear pain or discharge. No sore throat CARDIOVASCULAR: No chest pain RESPIRATORY: Denies hemoptysis GASTROINTESTINAL: No diarrhea or constipation GENITOURINARY: No dysuria, frequency, or change in urination MUSCULOSKELETAL: No joint or muscle swelling or pain. No neck or back pain SKIN: No rash NEUROLOGIC: No headache, vertigo, loss of consciousness, or change in strength/ sensation ENDOCRINE: No increased thirst. No abnormal weight change HEMATOLOGIC/LYMPHATIC: No anemia, easy bleeding, or history of blood clots ALLERGIC/IMMUNOLOGIC: No hives or skin allergy 09/24/18 09:36 Is the patient limited [place] proficient: No *Physical Exam - Vital Signs Vital Signs Temp Pulse Resp BP Pulse Ox 97.6 F 109 H 16 122/78 96 09/24/18 09:58 09/24/18 13:15 09/24/18 13:15 09/24/18 13:15 09/24/18 13:15 09/24/18 13:39 - Physical Exam Comments: GENERAL: Awake, alert, and fully oriented, in no acute distress HEAD: No signs of trauma, normocephalic, atraumatic EYES: R cataracts, vision grossly intact, EOMI ENT: Hearing grossly normal, nares patent, oropharynx clear without exudates. Moist mucosa LUNGS: No distress, speaks full sentences, decreased breath sounds LLL, saturating 100% on RA HEART: tachycardic rate w/ regular rhythm, normal S1 and S2, no murmurs appreciated, peripheral pulses normal and equal bilaterally ABDOMEN: Distended, diffuse TTP w/o rebound or guarding, RUQ, LUQ incisions healing well (liver bx and removal of PD catheter) EXTREMITIES : Normal inspection, Normal range of motion, no edema. No clubbing or cyanosis NEUROLOGICAL: Cranial nerves II through XII grossly intact. Normal speech, no focal sensorimotor deficits SKIN: Pale, cool, generalized excoriations 09/24/18 09:36 ED Treatment Course - LABORATORY CBC & Chemistry Diagram: 09/24/18 10:03 09/24/18 10:00 Medical Decision Making - Medical Decision Making The patient is a 53M w/ a history of ESRD on iHD (last Thu), acites, Ddx: sepsis, PNA, pericardial effusion, PE, lytes dysfunction, malignant acites , volume overload, considered OH/ACS ED Course Sepsis w/u POCUS w/ small pericardial effusion w/o evidence of RV collapse CTA for evaluation for PE Patient will most likely need admission, if so, will be due for iHD 09/24/18 10:43 Cr 7.7 09/24/18 12:08 Trop I 2.22 Lactate 1.7 Alk Phos>[id number], Transaminitis consistent with liver malignancy that is being worked up by Heme/Onc Bili 1.2, not likely to have duct obstruction currently 09/24/18 13:41 Patient to go to IR for paracentesis and planned to go to HD afterwards Will admit to tele ASA 325mg PO once Spoke w/ Cardiology, will start AC at this time due to patient's history of GI bleeds requiring ICU admission (gastric and duodenal ulcers present on most recent EGD) Liver bx with adenocarcinoma (08/20/2018). Possible multifocal HCC? Dispo: Admit 09/24/18 13:46 *DC/Admit/Observation/Transfer Diagnosis at time of Disposition: ESRD (end stage renal disease) on dialysis Diabetes Qualifiers: Diabetes mellitus type: type 2 Diabetes mellitus manager long term care insulin use: unspecified manager long term care insulin use status Diabetes mellitus complication status: with unspecified complications Qualified Code(s): E11.8 - Type 2 diabetes mellitus with unspecified complications Ascites Qualifiers: Ascites type: other type Qualified Code(s): R18.8 - Other ascites Dyspnea Qualifiers: Dyspnea type: unspecified Qualified Code(s): R06.00 - Dyspnea, unspecified - Discharge Dispostion Condition at time of disposition: Fair Decision to Admit order: Yes - Referrals - Patient Instructions - Post Discharge Activity
[2018-09-24] MEDS ORDERED: diphenhydrAMINE HCL 25 MG CAPSULE (FP) PO ONE ×2 (10:02→10:06)
[2018-09-24 10:07] VITALS: BMI 28.7
[2018-09-24] MEDS ORDERED: ACETAMINOPHEN 1000 MG/100 ML VIAL (NON FORMULARY) IVPB ONE (10:22)
--- NOTE | 2018-09-24 10:36 | PDOC ---
Attending Attestation - Physicial Exam PE: 09/24/18 12:47 Vitals: Triage vital signs reviewed General Appearance: No acute distress, well nourished, well developed Head: Atraumatic Neck: Supple; No nuchal rigidity Chest Wall: Nontender Cardiac: Regular rate and rhythm, no murmurs, no rubs, no gallops Lungs: (+)coarse breath sounds. good air movement bilaterally Abdomen: (+)mild diffuse tenderness to palpation. Soft, nondistended, normal bowel sounds. Genitourinary: Rectal: Exam deferred Extremities: Full range of motion to all extremities, no cyanosis, clubbing, or edema Skin: Warm and dry, no rashes or lesions, no rash, no petechiae Neuro: AOX3; Cranial Nerves 2-12 grossly intact, Strength intact to all extremities, Sensation intact to all extremities, gait normal Psych: Normal mood, normal affect Documentation prepared by Tracey Nguyen, acting as medical billing service for Sin Cavazos MD. <Tracey Nguyen - Last Filed: 09/24/18 12:47> - Resident Resident Name: Moy Stratton - ED Attending Attestation I have performed the following: I have examined & evaluated the patient, The case was reviewed & discussed with the resident, I agree w/resident's findings & plan, Exceptions are as noted - HPI HPI: 09/24/18 10:37 53 y/o man from home ESRD (HD- , ), HTN, DM, GI Bleed, Anemia, Former ETOH Abuse, removal of PD Catheter, s/p liver biopsy 08/20/18, showing possible hepatic cholangeocarcinoma presents to the ED with 3 day history of SOB. Patient due for dialysis today. Symptoms are persistent constant somewhat worse with lying down flat. Also endorses abdominal distention which is a chronic issue he is also status post 3 therapeutic paracenteses done here by IR over the last month. Heart - Critical Care Time Total Critical Care Time: 45 Critical Care Statement: The care of this patient involved high complexity decision making to prevent further life threatening deterioration of the patient 's condition and/or to evaluate & treat vital organ system(s) failure or risk of failure. - Medical Decision Making 09/24/18 15:54 53 y/o man from home ESRD (HD- ,, ), HTN, DM, GI Bleed, Anemia, Former ETOH Abuse, removal of PD Catheter, s/p liver biopsy 08/20/18, showing possible hepatic cholangeocarcinoma presents to the ED with 3 day history of SOB. 3 day history of shortness of breath presents today with tachycardia and shortness of breath due for dialysis as well as paracentesis EKG shows sinus tachycardia Laboratory analysis notable for elevated troponin of 2.2 Full dose aspirin given heparin withheld secondary to history of large GI bleeds in the past secondary to gastric ulcers Cardiology has been consult in We have also consult in with interventional radiology for therapeutic paracentesis CTA ordered given elevated troponin and tachycardia no evidence of PE Case discussed with patient's primary care provider we'll admit to telemetry for further management. <Sin Cavazos - Last Filed: 09/24/18 15:55> Heart Score/ECG Review - ECG Impressions Comment:: 09/24/18 15:52 Sinus tachycardia low-voltage EKG no ST elevations or T-wave inversions <Sin Cavazos - Last Filed: 09/24/18 15:55>
[2018-09-24] MEDS ORDERED: ACETAMINOPHEN INJECTION 100 ML IVPB ONE (10:40)
[2018-09-24 10:45] LABS: BASO % 0.8 % (0-2.0); EOS % 0.9 % (0-4.5); HEMATOCRIT 35.3 % (35.4-49); HEMOGLOBIN 10.8 GM/dL (11.7-16.9); LYMPH % 5.6 % (8-40); MCH 31.1 pg (25.7-33.7); MCHC 30.7 g/dl (32.0-35.9); MEAN CELL VOLUME 101.2 fl (80-96); MEAN PLT VOLUME 9.4 fl (7.5-11.1); MONO % 13.2 % (3.8-10.2); NEUT % 79.5 % (42.8-82.8); PLATELET COUNT 263 K/MM3 (134-434); RBC 3.49 M/mm3 (4.00-5.60); RDW 17.9 % (11.9-15.9); WHITE BLOOD COUNT 8.9 K/mm3 (4.0-10.0)
[2018-09-24 10:50] LABS: VENOUS PC02 39.3 mmHg (38-52); VENOUS PH 7.37 (7.32-7.42); VENOUS PO2 25.1 mmHg (28-48)
[2018-09-24 10:57] LABS: INR 1.16 (0.83-1.09); PROTHROMBIN TIME (PATIENT) 13.7 SEC (9.7-13.0)
[2018-09-24 11:00] LABS: ACTIVATED PTT 34.5 SECONDS (25.2-36.5)
[2018-09-24 11:41] LABS: ALBUMIN 1.6 g/dl (3.4-5.0); ANION GAP 15 MMOL/L (8-16); BILIRUBIN,TOTAL 1.2 mg/dL (0.2-1); BLOOD UREA NITROGEN 49 mg/dL (7-18); CALCIUM 7.5 mg/dL (8.5-10.1); CHLORIDE 100 mmol/L (98-107); CO2 21 mmol/L (21-32); GLUCOSE,RANDOM 88 mg/dL (74-106); POTASSIUM 3.9 mmol/L (3.5-5.1); SGOT/AST 453 U/L (15-37); SGPT/ALT 119 U/L (13-61); SODIUM 136 mmol/L (136-145); TOT PROT 5.7 g/dl (6.4-8.2)
[2018-09-24 11:50] LABS: CREATININE 7.7 mg/dL (0.55-1.3)
[2018-09-24 11:50] LABS: ANISOCYTOSIS 1+; MACROCYTOSIS 1+; OVALOCYTE 1+; PLATELET ESTIMATE NORMAL; TARGET CELLS 1+
--- NOTE | 2018-09-24 13:21 | CONSULT ---
Consult Consult Specialty:: Nephrology Reason for Consultation:: ESRD - History of Present Illness Chief Complaint: shortness of breath and abdominal distention History of Present Illness: Pt is a 53 year old male with pmhx of esrd, dm, liver cancer, chf, ascites, non compliance and gi bleed who presents to the ER with abdominal distension and worsening ascites. He was last dialyzed on Thursday. He denies nausea or vomiting. He is awake and alert. He denies fevers or chills. He denies nausea or vomiting. Pt was found to have positive troponins. - History Source History Provided By: Patient, Medical Record - Past Medical History Cardio/Vascular: Yes: HTN, Hyperlipdemia Gastrointestinal: Yes: GI Bleed (s/p EGD 01/26: ) Renal/: Yes: Renal Failure, Renal Inusuff, Hemodialysis Endocrine: Yes: Diabetes Mellitus - Alcohol/Substance Use Hx Alcohol Use: No History of Substance Use: reports: None - Smoking History Smoking history: Smoker current status UNK Have you smoked in the past 12 months: No Aproximately how many cigarettes per day: 0 - Social History ADL: Independent History of Recent Travel: No Home Medications - Allergies Allergies/Adverse Reactions: Allergies Allergy/AdvReac Type Severity Reaction Status Date / Time Penicillins Allergy Intermediate Verified 09/24/18 09:46 - Home Medications Home Medications: Ambulatory Orders RX: Sevelamer Carbonate [Renvela -] 1,600 mg PO TID 01/27/18 RX: traZODone HCL [Trazodone HCl] 50 mg PO HS 04/07/18 RX: Pantoprazole Sodium 40 mg PO BID 05/04/18 RX: Furosemide [Lasix] 40 mg PO DAILY 08/18/18 Family Disease History - Family Disease History Family Disease History: Diabetes: Brother (2, 1 with CVA, 1 healthy), Heart Disease: Father (: 62: CHF), Other: Father, Mother (Alive: wasnt clear as to her med. problems), Brother Review of Systems - Review of Systems Constitutional: denies: Chills, Fever Eyes: reports: No Symptoms HENT: reports: No Symptoms Neck: reports: No Symptoms Cardiovascular: reports: Chest Pain Respiratory: reports: SOB, SOB on Exertion Gastrointestinal: reports: Other (distention, ascites) Musculoskeletal: reports: No Symptoms Integumentary: reports: No Symptoms Neurological: reports: No Symptoms Endocrine: reports: No Symptoms Hematology/Lymphatic: reports: No Symptoms Physical Exam Vital Signs: Vital Signs Temperature 97.6 F 09/24/18 09:58 Pulse Rate 109 H 09/24/18 13:15 Respiratory Rate 16 09/24/18 13:15 Blood Pressure 122/78 09/24/18 13:15 O2 Sat by Pulse Oximetry (%) 96 09/24/18 13:15 Constitutional: Yes: Calm Eyes: Yes: Conjunctiva Clear HENT: Yes: Atraumatic Neck: Yes: Supple Cardiovascular: Yes: S1, S2 Respiratory: Yes: CTA Bilaterally Gastrointestinal: Yes: Ascites, Distention Renal/: Yes: WNL Musculoskeletal: Yes: WNL Edema: Yes Edema: LLE: 1+, RLE: 1+ Neurological: Yes: Oriented Psychiatric: Yes: Oriented Labs: CBC, BMP 09/24/18 10:03 09/24/18 10:00 Laboratory Tests 09/24/18 09/24/18 09/24/18 10:00 10:03 10:19 WBC 8.9 Hgb 10.8 L Plt Count 263 D BUN 49 H Creatinine 7.7 H* Troponin I 2.22 H* Imaging - Results Cat Scan: Report Reviewed Problem List - Problems (1) Ascites Code(s): R18.8 - OTHER ASCITES Qualifiers: Ascites type: other type Qualified Code(s): R18.8 - Other ascites (2) ESRD (end stage renal disease) on dialysis Code(s): N18.6 - END STAGE RENAL DISEASE; Z99.2 - DEPENDENCE ON RENAL DIALYSIS (3) Diabetes Code(s): E11.9 - TYPE 2 DIABETES MELLITUS WITHOUT COMPLICATIONS Qualifiers: Diabetes mellitus type: type 2 Diabetes mellitus termite helper insulin use: unspecified jail insulin use status Diabetes mellitus complication status : with unspecified complications Qualified Code(s): E11.8 - Type 2 diabetes mellitus with unspecified complications (4) 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 ESRD 2. DM 3. ascites 4. HTN 5. obesity 6. anemia 7. iron deficiency 8. CHF 9. anemia 10. non compliance 11. liver mass 12. hx GI bleed 13. diabetic nephropathy 14. adenocarcinoma 15. nstemi Plan - pt going for IR drainage - ct neg for PE - trend cardiac enzymes - will hold off HD today as he is getting paracentesis and his lytes are stable - oncology eval - cardiology eval for elevated troponin - will need admission to a monitored unit - discussed with ER - will follow
--- NOTE | 2018-09-24 13:34 | EKG ---
Test Reason : Blood Pressure : / mmHG Vent. Rate : 120 BPM Atrial Rate : 120 BPM P-R Int : 140 ms QRS Dur : 090 ms QT Int : 332 ms P-R-T Axes : 024 -56 050 degrees QTc Int : 469 ms SINUS TACHYCARDIA PULMONARY DISEASE PATTERN LEFT ANTERIOR FASCICULAR BLOCK NONSPECIFIC T WAVE ABNORMALITY ABNORMAL ECG WHEN COMPARED WITH ECG OF 03-SEP-2018 17:19, CRITERIA FOR ANTERIOR INFARCT ARE NO LONGER PRESENT CRITERIA FOR ANTEROLATERAL INFARCT ARE NO LONGER PRESENT ST NO LONGER ELEVATED IN LATERAL LEADS NONSPECIFIC T WAVE ABNORMALITY NOW EVIDENT IN LATERAL LEADS Confirmed by CLARA SOMMERS MD ([id number]) on 09/24/2018 1:33:48 PM Referred By: Confirmed By:CLARA SOMMERS MD
[2018-09-24] MEDS ORDERED: ASPIRIN 325 MG TABLET PO ONE (13:36)
[2018-09-24] MEDS ORDERED: ASPIRIN 325 MG TABLET ONE (13:45)
[2018-09-24 15:24] LABS: ALK PHOS 2944 U/L (45-117)
--- NOTE | 2018-09-24 15:28 | CON.CARD ---
Consult Consult Specialty:: Cardiology Referred by:: ER Reason for Consultation:: elevated troponin - History of Present Illness Chief Complaint: abd distention, sob History of Present Illness: 53y M hx of dm, htn, ESRD (, , , last dialysis ), had been on PD during the summer but switched back to HD, previous admission with abdominal distension. CT showed significant ascites and liver lesions. He recently had a biopsy and is awaiting results. Admitted now with abdominal distention worse than previously and sob. Seen and examined today now s/p paracentesis. states he is feeling much better since fluid removed. no longer sob. Denies having had any chest pain. Pt has had prior GI bleeds requiring blood transfusions and ICU admission. No palpitations, lightheadedness, dizziness, syncope or near syncope. Significant ascites and possible liver pathology on CT scan. -GI and Onc evaluating -Echocardiogram 08/18/18 showed normal LV and RV size and systolic function, mild MR, insufficient TR, no pericardial effusion -ascites does not appear cardiac related -BP is adequately controlled No additional inpatient cardiac work up is needed at this time. Please call with any additional questions. - History Source History Provided By: Patient, Medical Record Limitations to Obtaining History: No Limitations - Past Medical History Cardio/Vascular: Yes: HTN, Hyperlipdemia Gastrointestinal: Yes: GI Bleed (s/p EGD 01/26: ) Renal/: Yes: Renal Failure, Renal Inusuff, Hemodialysis Endocrine: Yes: Diabetes Mellitus - Past Surgical History Past Surgical History: Yes: AV Fistula/Graft - Alcohol/Substance Use Hx Alcohol Use: No History of Substance Use: reports: None - Smoking History Smoking history: Smoker current status UNK Have you smoked in the past 12 months: No Aproximately how many cigarettes per day: 0 - Social History ADL: Independent History of Recent Travel: No Home Medications - Allergies Allergies/Adverse Reactions: Allergies Allergy/AdvReac Type Severity Reaction Status Date / Time Penicillins Allergy Intermediate Verified 09/24/18 09:46 - Home Medications Home Medications: Ambulatory Orders Sevelamer Carbonate [Renvela -] 1,600 mg PO TID 01/27/18 traZODone HCL [Trazodone HCl] 50 mg PO HS 04/07/18 Pantoprazole Sodium 40 mg PO BID 05/04/18 Furosemide [Lasix] 40 mg PO DAILY 08/18/18 Family Disease History - Family Disease History Family Disease History: Diabetes: Brother (2, 1 with CVA, 1 healthy), Heart Disease: Father (: 62: CHF), Other: Father, Mother (Alive: wasnt clear as to her med. problems), Brother Review of Systems - Review of Systems Constitutional: denies: No Symptoms, Chills, Diaphoresis, Fever, Lethargy, Loss of Appetite, Malaise, Night Sweats, Unintentional Wgt. Loss, Weakness, Other Eyes: denies: No Symptoms, Blind Spots, Blurred Vision, Double Vision, Eye Pain , Floaters, Photophobia, Recent Change in Vision, Other HENT: denies: No Symptoms, Difficult Swallowing, Ear Discharge, Ear Pain, Epistaxis, Gingival Bleeding, Hearing Loss, Mouth Swelling, Nasal Congestion, Ocular Prosthesis, Throat Pain, Toothache, Ringing in Ears, Other Neck: denies: No Symptoms, Decreased ROM, Lumps, Pain on Movement, Stiffness, Swollen Glands, Tenderness, Other Cardiovascular: reports: Shortness of Breath. denies: No Symptoms, Chest Pain, Edema, Palpitations, Other Respiratory: reports: Orthopnea, SOB. denies: No Symptoms, Cough, Exercise Intolerance, Hemoptysis, PND, Snoring, SOB on Exertion, Wheezing, Other Gastrointestinal: reports: Abdominal Pain, Other (abd distention) Genitourinary: denies: No Symptoms, Burning, Discharge, Dysuria, Flank Pain, Frequency, Hematuria, Incontinence, Lesions, Menses, Pain, Testicular Mass, Testicular Pain, Testicular Swelling, Urgency, Vaginal Bleeding, Other Breasts: denies: No Symptoms Reported, See HPI, Breast Implants, Discharge from Nipple, Lumps, Pain, Skin Changes, Other Musculoskeletal: denies: No Symptoms, Back Pain, Crepitus, Decreased ROM, Extremity Pain, Joint Pain, Joint Swelling, Muscle Pain, Muscle Cramps, Muscle Weakness, Other Integumentary: denies: No Symptoms, Blister, Bruising, Change in Color, Eczema, Erythema, Incision, Lesions, Lump, Pallor, Pruritis, Rash, Wound, Other Neurological: denies: No Symptoms, Change in LOC, Change in Speech, Confusion, Dizziness, Headache, Incoordination, Numbness, Parasthesia, Pre-Existing Deficit , Seizure, Syncope, Tremors, Unsteady Gait, Weakness, Other Endocrine: denies: No Symptoms, Excessive Sweating, Flushing, Increased Hunger, Increased Thirst, Intolerance to Cold, Intolerance to Heat, Unexplained Weight Gain, Unexplained Weight Loss, Other Hematology/Lymphatic: denies: No Symptoms, Easily Bruised, Excessive Bleeding, Swollen Glands, Other Psychiatric: denies: No Symptoms, Altered Sleep Pattern, Anxiety, Depression, Hallucinations, Panic, Paranoia, Suicidal, Other Vital Signs: Vital Signs Temperature 97.6 F 09/24/18 09:58 Pulse Rate 109 H 09/24/18 13:15 Respiratory Rate 16 09/24/18 13:15 Blood Pressure 122/78 09/24/18 13:15 O2 Sat by Pulse Oximetry (%) 96 09/24/18 13:15 Constitutional: Yes: No Distress, Calm Eyes: Yes: Conjunctiva Clear, EOM Intact, PERRL HENT: Yes: Atraumatic, Normocephalic Neck: Yes: Supple, Trachea Midline Respiratory: Yes: Regular, CTA Bilaterally. No: Rales, Rhonchi, SOB, Wheezes Gastrointestinal: Yes: Normal Bowel Sounds, Soft. No: Distention, Tenderness Cardiovascular: Yes: Regular Rate and Rhythm. No: Bradycardia, Tachycardia, Pulse Irregular, Gallop, Rub, Varicosities PMI: Non-Displaced Heart Sounds: Yes: S1, S2. No: Split S2, S3, S4, Clicks, Gallop, Rub, Bruit Murmur: No: Systolic Murmur, Diastolic Murmur Musculoskeletal: Yes: WNL Edema: No Peripheral Pulses WNL: Yes Peripheral Pulses: 2+ Left Doralis Pedis, 2+ Right Dorsalis Pedis Neurological: Yes: Alert, Oriented Psychiatric: Yes: Alert, Oriented - Other Data Labs, Other Data: CBC, BMP 09/24/18 10:03 09/24/18 10:00 INR, PTT INR 1.16 (0.83-1.09) H 09/24/18 10:00 Troponin, BNP 09/24/18 10:19 Troponin I 2.22 H* Troponin, BNP 09/24/18 10:19 Troponin I 2.22 H* ekg sinus tach 120bpm, lad, low voltage, poor R progression Echo: Report Reviewed Imaging - Results Chest X-ray: Report Reviewed, Image Reviewed EKG: Report Reviewed, Image Reviewed Other: Report Reviewed, Image Reviewed Assessment/Plan 53y M hx of dm, htn, ESRD (, , , last dialysis ), had been on PD during the summer but switched back to HD, previous admission with abdominal distension. CT showed significant ascites and liver lesions. He recently had a biopsy and is awaiting results. Admitted now with abdominal distention worse than previously and sob. Seen and examined today now s/p paracentesis. states he is feeling much better since fluid removed. no longer sob. Denies having had any chest pain. Pt has had prior GI bleeds requiring blood transfusions and ICU admission. No palpitations, lightheadedness, dizziness, syncope or near syncope. Elevated troponin-does not appear to be ACS -no chest pain -no ischemia on ecg -could be secondary to demand ischemia in setting of sinus tach and ESRD on HD -h/o severe GI bleeds requiring transfusions and currently being worked up for malignancy -no indication for cardiac catheterization at this time -would not start full AC given h/o severe GI bleeds, unless confirmed it is safe -received ASA in ER, cont ASA 81mg daily if safe to do so -check echo to evaluate LV function and for pericardial effusion -trend cardiac enzymes including CK and troponin and add CK level to earlier troponin -tele monitoring
--- NOTE | 2018-09-24 15:33 | HP ---
Admitting History and Physical - Admission Chief Complaint: SOB for 3 days worsening today causing patient to present to ED. Abdominal distention and pain due to ascites History of Present Illness: Patient is a 53 y/o male with pmhx of ESRD (M-W-F), HTN, DM, liver cancer, ascites, CHF, anemia, GI bleed. Patient presents to ED with complaints of SOB for 3 days which worsened this morning. Patient is also experiencing abdominal pain and distention due to ascites. Elevated troponin in ED received aspirin 325mg PO x 1. CTA performed and negative for PE. Underwent paracentesis in IR due to ascites and patient states feeling better and having less SOB. History Source: Patient Limitations to Obtaining History: No Limitations - Past Medical History Cardiovascular: Yes: HTN, Hyperlipdemia Gastrointestinal: Yes: GI Bleed (s/p EGD 01/26: ) Renal/: Yes: Renal Failure, Renal Inusuff, Hemodialysis Heme/Onc: Yes: Cancer (Suspected multifocal HCC) Endocrine: Yes: Diabetes Mellitus - Past Surgical History Past Surgical History: Yes: AV Fistula/Graft - Smoking History Smoking history: Smoker current status UNK Have you smoked in the past 12 months: No Aproximately how many cigarettes per day: 0 - Alcohol/Substance Use Hx Alcohol Use: No History of Substance Use: reports: None - Social History ADL: Independent History of Recent Travel: No Home Medications - Allergies Allergies/Adverse Reactions: Allergies Allergy/AdvReac Type Severity Reaction Status Date / Time Penicillins Allergy Intermediate Verified 09/24/18 09:46 - Home Medications Home Medications: Ambulatory Orders Sevelamer Carbonate [Renvela -] 1,600 mg PO TID 01/27/18 traZODone HCL [Trazodone HCl] 50 mg PO HS 04/07/18 Pantoprazole Sodium 40 mg PO BID 05/04/18 Furosemide [Lasix] 40 mg PO DAILY 08/18/18 Family Disease History - Family Disease History Family Disease History: Diabetes: Brother (2, 1 with CVA, 1 healthy), Heart Disease: Father (: 62: CHF), Other: Father, Mother (Alive: wasnt clear as to her med. problems), Brother Review of Systems - Review of Systems Constitutional: reports: No Symptoms Eyes: reports: No Symptoms HENT: reports: No Symptoms Neck: reports: No Symptoms Cardiovascular: reports: No Symptoms Respiratory: reports: SOB Gastrointestinal: reports: Abdominal Pain Genitourinary: reports: No Symptoms Breasts: reports: No Symptoms Reported Musculoskeletal: reports: No Symptoms Integumentary: reports: Pruritis Neurological: reports: No Symptoms Endocrine: reports: No Symptoms Hematology/Lymphatic: reports: No Symptoms Psychiatric: reports: No Symptoms Physical Examination Vital Signs: Vital Signs Temperature 97.6 F 09/24/18 09:58 Pulse Rate 109 H 09/24/18 13:15 Respiratory Rate 16 09/24/18 13:15 Blood Pressure 122/78 09/24/18 13:15 O2 Sat by Pulse Oximetry (%) 96 09/24/18 13:15 Constitutional: Yes: No Distress, Calm Eyes: Yes: Conjunctiva Clear HENT: Yes: WNL Neck: Yes: Supple Cardiovascular: Yes: Regular Rate and Rhythm Respiratory: Yes: Other (coarse BS bilaterally) Gastrointestinal: Yes: Ascites, Distention Edema: Yes Edema: LLE: 1+, RLE: 1+ Integumentary: Yes: Rash (generalized) Neurological: Yes: Alert, Oriented Labs: CBC, BMP 09/24/18 10:03 09/24/18 10:00 Imaging - Results Chest X-ray: Report Reviewed EKG: Report Reviewed Problem List - Problems (1) Ascites Code(s): R18.8 - OTHER ASCITES Qualifiers: Ascites type: other type Qualified Code(s): R18.8 - Other ascites (2) Dyspnea Code(s): R06.00 - DYSPNEA, UNSPECIFIED Qualifiers: Dyspnea type: unspecified Qualified Code(s): R06.00 - Dyspnea, unspecified (3) ESRD (end stage renal disease) on dialysis Code(s): N18.6 - END STAGE RENAL DISEASE; Z99.2 - DEPENDENCE ON RENAL DIALYSIS (4) Cholangiocarcinoma Code(s): C22.1 - INTRAHEPATIC BILE DUCT CARCINOMA (5) Dialysis patient Code(s): Z99.2 - DEPENDENCE ON RENAL DIALYSIS (6) ESRD (end stage renal disease) Code(s): N18.6 - END STAGE RENAL DISEASE (7) History of duodenal ulcer Code(s): Z87.19 - PERSONAL HISTORY OF OTHER DISEASES OF THE DIGESTIVE SYSTEM (8) Hypertensive cardiomegaly with heart failure Code(s): I11.0 - HYPERTENSIVE HEART DISEASE WITH HEART FAILURE Assessment/Plan PREVIOUS NOTES AND EVENTS REVIEWED PENDING CARDIOLOGY CONSULT DUE TO ELEVATED TROP 2.2 ADMIT TO TELE UNIT NEPHROLOGY CONSULT REVIEWED AND APPRECIATED, CONT HD SCHEDULED BGM MONITORING
--- NOTE | 2018-09-24 16:19 | ECHO ---
Name: VALLE, JUDITH Exam:Adult Echocardiogram Study Date: 09/24/2018 03:44 PM Age: 53 yrs Reason For Study: elevated troponin Height: 68 in Weight: 189 lb BSA: 2.0 m2 MMode/2D Measurements & Calculations LVIDd: 3.3 cm Ao root diam: 3.8 cm LVIDs: 2.0 cm LA dimension: 2.9 cm EDV(Teich): 44.6 ml LVOT diam: 2.2 cm ESV(Teich): 11.9 ml RV S Kenton: 15.8 cm/sec Doppler Measurements & Calculations MV E max kenton: 48.0 cm/sec Ao V2 max: 129.9 cm/sec MV A max kenton: 74.7 cm/sec Ao max P.8 mmHg MV E/A: 0.64 REGI(V,D): 3.0 cm2 LV V1 max P.2 mmHg Med Peak E' Kenton: 5.2 cm/sec LV V1 max: 102.3 cm/sec Med E/e': 9.2 Lat Peak E' Kenton: 10.1 cm/sec Lat E/e': 4.7 Procedure The study was technically difficult with many images being suboptimal in quality. Left Ventricle A mild intracavitary gradient is present. The left ventricle is hyperdynamic. The transmitral spectra l Doppler flow pattern is suggestive of impaired LV relaxation. Regional wall motion abnormalities cannot be ex cluded due to limited visualization. Right Ventricle The right ventricle is grossly normal size. The right ventricular systolic function is normal. Atria Normal left and right atrial size and function. Mitral Valve The mitral valve is normal in structure and function. There is no mitral valve stenosis. There is tra ce to mild mitral regurgitation. Tricuspid Valve The tricuspid valve is normal in structure and function. There is mild tricuspid regurgitation. Aortic Valve The aortic valve opens well. No hemodynamically significant valvular aortic stenosis. No aortic regur gitation is present. Pulmonic Valve The pulmonic valve is not well seen, but is grossly normal. There is no pulmonic valvular stenosis. T here is no pulmonic valvular regurgitation. Great Vessels Mild aortic root dilatation. Pericardium/Pleura There is no pericardial effusion. Interpretation Summary The study was technically difficult with many images being suboptimal in quality. The left ventricle is hyperdynamic. The transmitral spectral Doppler flow pattern is suggestive of impaired LV relaxation. Mild aortic root dilatation. There is no pericardial effusion. A mild intracavitary gradient is present. MD Lin *Honey 09/24/2018 04:19 PM
[2018-09-24] MEDS: SEVELAMER CARBONATE 800 MG TAB (FP) PO SCH (17:36)
[2018-09-24] MEDS ORDERED: SODIUM CHLORIDE 250 ML IV PRN (20:58)
[2018-09-24] MEDS: PANTOPRAZOLE 40 MG TABLET (FP) PO SCH (21:53)
[2018-09-24] MEDS: traZODone HCL 50 MG TABLET (FP) PO SCH (21:53)
[2018-09-25 08:03] LABS: BASO % 0.7 % (0-2.0); EOS % 1.7 % (0-4.5); HEMATOCRIT 29.9 % (35.4-49); HEMOGLOBIN 9.9 GM/dL (11.7-16.9); LYMPH % 12.9 % (8-40); MCH 33.1 pg (25.7-33.7); MCHC 33.2 g/dl (32.0-35.9); MEAN CELL VOLUME 99.6 fl (80-96); MEAN PLT VOLUME 9.6 fl (7.5-11.1); NEUT % 70.7 % (42.8-82.8); PLATELET COUNT 291 K/MM3 (134-434); RBC 3.01 M/mm3 (4.00-5.60); RDW 18.5 % (11.9-15.9); WHITE BLOOD COUNT 9.6 K/mm3 (4.0-10.0)
[2018-09-25] MEDS: SEVELAMER CARBONATE 800 MG TAB (FP) PO SCH ×3 (08:38→17:52)
[2018-09-25 09:04] LABS: ALBUMIN 1.3 g/dl (3.4-5.0); ALK PHOS > 2330 U/L (45-117); ANION GAP 16 MMOL/L (8-16); BILIRUBIN,TOTAL 0.8 mg/dL (0.2-1); BLOOD UREA NITROGEN 57 mg/dL (7-18); CALCIUM 7.1 mg/dL (8.5-10.1); CHLORIDE 99 mmol/L (98-107); CO2 19 mmol/L (21-32); GLUCOSE,RANDOM 105 mg/dL (74-106); POTASSIUM 4.1 mmol/L (3.5-5.1); SGOT/AST 349 U/L (15-37); SGPT/ALT 101 U/L (13-61); SODIUM 134 mmol/L (136-145)
[2018-09-25 09:54] LABS: CREATININE 8.5 mg/dL (0.55-1.3)
[2018-09-25] MEDS: oxyCODONE HCL 5 MG TABLET PO PRN ×2 (11:33→19:47)
[2018-09-25] MEDS: PANTOPRAZOLE 40 MG TABLET (FP) PO SCH ×2 (12:20→21:44)
[2018-09-25] MEDS: FUROSEMIDE 40 MG TABLET (FP) PO SCH (12:21)
--- NOTE | 2018-09-25 12:54 | PN ---
Progress Note (short form) - Note Progress Note: RENAL Last Vital Signs Temp Pulse Resp BP Pulse Ox 98 F 111 H 18 95/56 L 96 09/25/18 09:58 09/25/18 10:15 09/25/18 10:15 09/25/18 10:15 09/24/18 21:00 pt is comfortable his vital signs are acceptable he was just dialyzed and he did well has no specifc complaints liver cancer with very high alk phos MV
--- NOTE | 2018-09-25 13:30 | PN ---
Progress Note, Physician Chief Complaint: Liver Ca Ascitis Elevated troponins History of Present Illness: NAD in bed self ambulatory feels better after paracentecis-5L removed seen by Nephrology - Current Medication List Current Medications: Active Medications Furosemide (Lasix -) 40 mg PO DAILY [facility] Last Admin: 09/25/18 12:21 Dose: 40 mg Sodium Chloride (Normal Saline -) 250 mls @ 3,000 mls/hr IV PRN PRN PRN Reason: Hypotension during Dialysis Stop: 09/25/18 20:58 Oxycodone HCl (Roxicodone -) 5 mg PO Q6H PRN PRN Reason: PAIN LEVEL 6-10 Last Admin: 09/25/18 11:33 Dose: 5 mg Pantoprazole Sodium (Protonix -) 40 mg PO BID [facility] Last Admin: 09/25/18 12:20 Dose: 40 mg Sevelamer Carbonate (Renvela -) 1,600 mg PO TIDCM [facility] Last Admin: 09/25/18 12:22 Dose: 1,600 mg Trazodone HCl (Desyrel -) 50 mg PO HS [facility] Last Admin: 09/24/18 21:53 Dose: 50 mg - Objective Vital Signs: Vital Signs Temperature 98 F 09/25/18 09:58 Pulse Rate 111 H 09/25/18 10:15 Respiratory Rate 18 09/25/18 10:15 Blood Pressure 95/56 L 09/25/18 10:15 O2 Sat by Pulse Oximetry (%) 96 09/25/18 09:00 Constitutional: Yes: Well Nourished, No Distress, Calm Cardiovascular: Yes: Regular Rate and Rhythm Respiratory: Yes: Regular Gastrointestinal: Yes: Normal Bowel Sounds, Ascites Musculoskeletal: Yes: WNL Extremities: Yes: WNL Edema: No Peripheral Pulses WNL: Yes Neurological: Yes: Alert, Oriented Psychiatric: Yes: Alert, Oriented Labs: CBC, BMP 09/25/18 06:00 09/25/18 06:00 INR, PTT INR 1.16 (0.83-1.09) H 09/24/18 10:00 Problem List - Problems (1) Ascites Assessment/Plan: -2/2 to liver ca -Oncology consult -s/p paracentecis Code(s): R18.8 - OTHER ASCITES Qualifiers: Ascites type: other type Qualified Code(s): R18.8 - Other ascites (2) ESRD (end stage renal disease) on dialysis Assessment/Plan: -nephrology on board -dialysis TTa Code(s): N18.6 - END STAGE RENAL DISEASE; Z99.2 - DEPENDENCE ON RENAL DIALYSIS (3) Hepatocellular carcinoma Assessment/Plan: -oncology consult -pt aware of diagnosis Code(s): C22.0 - LIVER CELL CARCINOMA (4) Elevated troponin Assessment/Plan: -seen by cardiology -cydney linda down -tele monitoring Code(s): R74.8 - ABNORMAL LEVELS OF OTHER SERUM ENZYMES (5) Anemia Assessment/Plan: -2/2 to esrd -r/o any underlying contributing factors -check stool ob, b12, thyroid and iron profile -monitor trend Code(s): D64.9 - ANEMIA, UNSPECIFIED Assessment/Plan see problem list
[2018-09-25 13:58] LABS: ANISOCYTOSIS 1+; MACROCYTOSIS 1+; OVALOCYTE 1+; PLATELET ESTIMATE NORMAL; TARGET CELLS 1+
[2018-09-25] MEDS: traZODone HCL 50 MG TABLET (FP) PO SCH (21:44)
[2018-09-26] MEDS: oxyCODONE HCL 5 MG TABLET PO PRN ×3 (03:17→21:12)
[2018-09-26] MEDS: SEVELAMER CARBONATE 800 MG TAB (FP) PO SCH ×3 (07:42→17:12)
[2018-09-26] MEDS: PANTOPRAZOLE 40 MG TABLET (FP) PO SCH ×2 (09:10→21:12)
[2018-09-26] MEDS: FUROSEMIDE 40 MG TABLET (FP) PO SCH (12:11)
--- NOTE | 2018-09-26 12:29 | PN ---
Progress Note (short form) - Note Progress Note: RENAL Awake and alert upset that his BP drops appetite is good Last Vital Signs Temp Pulse Resp BP Pulse Ox 97.8 F 108 H 18 90/50 L 96 09/26/18 09:00 09/26/18 09:00 09/26/18 09:00 09/26/18 09:00 09/25/18 21:00 lungs clear cvs s1s2 rr abd soft ext no edema neuro a+ox3 CBC, BMP 09/25/18 06:00 09/25/18 06:00 Current Medications Generic Name Dose Route Start Last Admin Trade Name Freq PRN Reason Stop Dose Admin Furosemide 40 mg 09/25/18 10:00 09/26/18 12:11 Lasix - PO 40 mg DAILY KRISTEN Administration Sodium Chloride 250 mls @ 3,000 mls/hr 09/24/18 20:58 Normal Saline - IV 09/25/18 20:58 PRN PRN Hypotension during Dialysis Oxycodone HCl 5 mg 09/25/18 10:44 09/26/18 09:38 Roxicodone - PO 5 mg Q6H PRN Administration PAIN LEVEL 6-10 Pantoprazole Sodium 40 mg 09/24/18 22:00 09/26/18 09:10 Protonix - PO 40 mg BID KRISTEN Administration Sevelamer Carbonate 1,600 mg 09/24/18 17:30 09/26/18 12:10 Renvela - PO 1,600 mg TIDCM KRISTEN Administration Trazodone HCl 50 mg 09/24/18 22:00 09/25/18 21:44 Desyrel - PO 50 mg HS KRISTEN Administration IMPRESSION esrd liver mass symptomatic hypotension elevated troponins PLAN check morning cortisol start low dose midodrine 2.5 tid if cortisol low can try florinef continue hd tiw MV
--- NOTE | 2018-09-26 14:14 | PN ---
Progress Note, Physician Chief Complaint: Liver Ca Ascitis Elevated troponins History of Present Illness: NAD - Current Medication List Current Medications: Active Medications Furosemide (Lasix -) 40 mg PO DAILY [facility] Last Admin: 09/26/18 12:11 Dose: 40 mg Sodium Chloride (Normal Saline -) 250 mls @ 3,000 mls/hr IV PRN PRN PRN Reason: Hypotension during Dialysis Stop: 09/25/18 20:58 Oxycodone HCl (Roxicodone -) 5 mg PO Q6H PRN PRN Reason: PAIN LEVEL 6-10 Last Admin: 09/26/18 09:38 Dose: 5 mg Pantoprazole Sodium (Protonix -) 40 mg PO BID [facility] Last Admin: 09/26/18 09:10 Dose: 40 mg Sevelamer Carbonate (Renvela -) 1,600 mg PO TIDCM [facility] Last Admin: 09/26/18 12:10 Dose: 1,600 mg Trazodone HCl (Desyrel -) 50 mg PO HS [facility] Last Admin: 09/25/18 21:44 Dose: 50 mg - Objective Vital Signs: Vital Signs Temperature 97.8 F 09/26/18 09:00 Pulse Rate 108 H 09/26/18 09:00 Respiratory Rate 18 09/26/18 09:00 Blood Pressure 90/50 L 09/26/18 09:00 O2 Sat by Pulse Oximetry (%) 96 09/25/18 21:00 Constitutional: Yes: Well Nourished, No Distress, Calm Cardiovascular: Yes: Regular Rate and Rhythm Respiratory: Yes: Regular Gastrointestinal: Yes: Normal Bowel Sounds, Soft, Abdomen, Obese Musculoskeletal: Yes: WNL Extremities: Yes: WNL Edema: No Peripheral Pulses WNL: Yes Neurological: Yes: Alert, Oriented Psychiatric: Yes: Alert, Oriented Labs: CBC, BMP 09/25/18 06:00 09/25/18 06:00 INR, PTT INR 1.16 (0.83-1.09) H 09/24/18 10:00 Problem List - Problems (1) Ascites Assessment/Plan: -2/2 to liver ca -Oncology consult -s/p paracentecis Code(s): R18.8 - OTHER ASCITES Qualifiers: Ascites type: other type Qualified Code(s): R18.8 - Other ascites (2) ESRD (end stage renal disease) on dialysis Assessment/Plan: -nephrology on board -dialysis TThSa Code(s): N18.6 - END STAGE RENAL DISEASE; Z99.2 - DEPENDENCE ON RENAL DIALYSIS (3) Hepatocellular carcinoma Assessment/Plan: -oncology consult -pt aware of diagnosis Code(s): C22.0 - LIVER CELL CARCINOMA (4) Elevated troponin Assessment/Plan: -seen by cardiology -cydney alvaradoing down -tele monitoring Code(s): R74.8 - ABNORMAL LEVELS OF OTHER SERUM ENZYMES (5) Anemia Assessment/Plan: -2/2 to esrd -r/o any underlying contributing factors -check stool ob, b12, thyroid and iron profile -monitor trend Code(s): D64.9 - ANEMIA, UNSPECIFIED Assessment/Plan see problem list
[2018-09-26] MEDS ORDERED: diphenhydrAMINE HCL 25 MG CAPSULE (FP) PO ONE (18:48)
[2018-09-26] MEDS: traZODone HCL 50 MG TABLET (FP) PO SCH (21:12)
[2018-09-27] MEDS: SEVELAMER CARBONATE 800 MG TAB (FP) PO SCH ×2 (10:40→17:15)
[2018-09-27] MEDS: CHOLECALCIFEROL (VITAMIN D3) 1,000 UNIT TABLET (FP) PO SCH (10:40)
[2018-09-27] MEDS: oxyCODONE HCL 5 MG TABLET PO PRN ×2 (10:40→17:14)
[2018-09-27] MEDS: FUROSEMIDE 40 MG TABLET (FP) PO SCH (10:40)
[2018-09-27] MEDS: PANTOPRAZOLE 40 MG TABLET (FP) PO SCH ×2 (10:41→21:20)
--- NOTE | 2018-09-27 12:09 | CONSULT ---
Consult Consult Specialty:: Hematology/Oncology - History of Present Illness Chief Complaint: recently diagnosed choliangiocarcinoma History of Present Illness: 53 yr old man with hx of DM, ESRD on HD TTSA via catheter, HTN, cirrhosis recently diagnosed with cholangiocarcinoma presents with ascitis and SOB. SOB improved s/p paracentesis, requesting additional fluid to be removed. also c/o hypotension associated with dizziness. was seen by Dr. Lane as outpatient after previous dc, says he discussed treatment options with Dr. Lane and his brother and is awaiting final plan with Dr. Lane. Declined to have repeat EGD now due to recent EGD, say his insurance will not pay for it. has not followed with GI since previous DC. denied chest pain, fevers, melena, hematochezia, nausea, hematuria, vomiting, palpitations, cough, abdominal pain, diarrhea, constipation. - Past Medical History Cardio/Vascular: Yes: HTN, Hyperlipdemia Gastrointestinal: Yes: GI Bleed (s/p EGD 01/26: ) Renal/: Yes: Renal Failure, Renal Inusuff, Hemodialysis Endocrine: Yes: Diabetes Mellitus - Past Surgical History Past Surgical History: Yes: AV Fistula/Graft - Alcohol/Substance Use Hx Alcohol Use: No History of Substance Use: reports: None - Smoking History Smoking history: Never smoked Have you smoked in the past 12 months: No Aproximately how many cigarettes per day: 0 - Social History ADL: Independent History of Recent Travel: No Home Medications - Allergies Allergies/Adverse Reactions: Allergies Allergy/AdvReac Type Severity Reaction Status Date / Time Penicillins Allergy Intermediate Verified 09/24/18 09:46 - Home Medications Home Medications: Ambulatory Orders Sevelamer Carbonate [Renvela -] 1,600 mg PO TID 01/27/18 traZODone HCL [Trazodone HCl] 50 mg PO HS 04/07/18 Pantoprazole Sodium 40 mg PO BID 05/04/18 Furosemide [Lasix] 40 mg PO DAILY 08/18/18 Family Disease History - Family Disease History Family Disease History: Diabetes: Brother (2, 1 with CVA, 1 healthy), Heart Disease: Father (: 62: CHF), Other: Father, Mother (Alive: wasnt clear as to her med. problems), Brother Review of Systems - Review of Systems Constitutional: denies: Chills, Fever Cardiovascular: reports: Shortness of Breath. 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 Problem List: Cholangiocarcinoma Ascitis ESRD on HD chronic anemia NIDDM HTN - currently c/o hypotension diastolic CHF PLAN: continue HD treatment pending further discussion for treatment of malignancy
--- NOTE | 2018-09-27 13:33 | PN ---
Progress Note, Physician History of Present Illness: Pt seen and examined at bedside. He is awake and alert. He complains of mild abdominal distention. - Current Medication List Current Medications: Active Medications Cholecalciferol (Vitamin D3 -) 1,000 unit PO DAILY [facility] Last Admin: 09/27/18 10:40 Dose: 1,000 unit Furosemide (Lasix -) 40 mg PO DAILY [facility] Last Admin: 09/27/18 10:40 Dose: 40 mg Sodium Chloride (Normal Saline -) 250 mls @ 3,000 mls/hr IV PRN PRN PRN Reason: Hypotension during Dialysis Stop: 09/25/18 20:58 Oxycodone HCl (Roxicodone -) 5 mg PO Q6H PRN PRN Reason: PAIN LEVEL 6-10 Last Admin: 09/27/18 10:40 Dose: 5 mg Pantoprazole Sodium (Protonix -) 40 mg PO BID [facility] Last Admin: 09/27/18 10:41 Dose: 40 mg Sevelamer Carbonate (Renvela -) 1,600 mg PO TIDCM [facility] Last Admin: 09/27/18 10:40 Dose: 1,600 mg Trazodone HCl (Desyrel -) 50 mg PO HS [facility] Last Admin: 09/26/18 21:12 Dose: 50 mg - Objective Vital Signs: Vital Signs Temperature 98.4 F 09/27/18 06:00 Pulse Rate 102 H 09/27/18 06:00 Respiratory Rate 18 09/27/18 06:00 Blood Pressure 108/73 09/27/18 06:00 O2 Sat by Pulse Oximetry (%) 98 09/26/18 21:00 Constitutional: Yes: Calm Eyes: Yes: Conjunctiva Clear HENT: Yes: Atraumatic Neck: Yes: Supple Cardiovascular: Yes: S1, S2 Respiratory: Yes: CTA Bilaterally Gastrointestinal: Yes: Ascites Genitourinary: Yes: WNL Musculoskeletal: Yes: WNL Edema: Yes Edema: LLE: 1+, RLE: 1+ Neurological: Yes: Oriented Psychiatric: Yes: Oriented Labs: CBC, BMP 09/25/18 06:00 09/25/18 06:00 INR, PTT INR 1.16 (0.83-1.09) H 09/24/18 10:00 Problem List - Problems (1) Ascites Code(s): R18.8 - OTHER ASCITES Qualifiers: Ascites type: other type Qualified Code(s): R18.8 - Other ascites (2) ESRD (end stage renal disease) on dialysis Code(s): N18.6 - END STAGE RENAL DISEASE; Z99.2 - DEPENDENCE ON RENAL DIALYSIS (3) Diabetes Code(s): E11.9 - TYPE 2 DIABETES MELLITUS WITHOUT COMPLICATIONS Qualifiers: Diabetes mellitus type: type 2 Diabetes mellitus roll winder insulin use: unspecified roll winder insulin use status Diabetes mellitus complication status : with unspecified complications Qualified Code(s): E11.8 - Type 2 diabetes mellitus with unspecified complications (4) Cholangiocarcinoma Code(s): C22.1 - INTRAHEPATIC BILE DUCT CARCINOMA Assessment/Plan Current Medications Generic Name Dose Route Start Last Admin Trade Name Freq PRN Reason Stop Dose Admin Cholecalciferol 1,000 unit 09/27/18 10:00 09/27/18 10:40 Vitamin D3 - PO 1,000 unit DAILY KRISTEN Administration Furosemide 40 mg 09/25/18 10:00 09/27/18 10:40 Lasix - PO 40 mg DAILY KRISTEN Administration Sodium Chloride 250 mls @ 3,000 mls/hr 09/24/18 20:58 Normal Saline - IV 09/25/18 20:58 PRN PRN Hypotension during Dialysis Oxycodone HCl 5 mg 09/25/18 10:44 09/27/18 10:40 Roxicodone - PO 5 mg Q6H PRN Administration PAIN LEVEL 6-10 Pantoprazole Sodium 40 mg 09/24/18 22:00 09/27/18 10:41 Protonix - PO 40 mg BID KRISTEN Administration Sevelamer Carbonate 1,600 mg 09/24/18 17:30 09/27/18 10:40 Renvela - PO 1,600 mg TIDCM KRISTEN Administration Trazodone HCl 50 mg 09/24/18 22:00 09/26/18 21:12 Desyrel - PO 50 mg HS KRISTEN Administration Impression 1. ESRD 2. DM 3. ascites 4. HTN 5. obesity 6. anemia 7. iron deficiency 8. CHF 9. anemia 10. non compliance 11. liver mass 12. hx GI bleed 13. diabetic nephropathy 14. adenocarcinoma 15. nstemi Plan - pt remains on tele, cardio follow up - GI eval for ascites as it is recurring and he need follow up - oncology follow up - HD tomorrow - will follow
--- NOTE | 2018-09-27 14:30 | PN ---
Progress Note, Physician Chief Complaint: patient seen and examined in bed - Current Medication List Current Medications: Active Medications Albumin Human (Albumin Human 25%) 12.5 gm IVPB Q30M [facility] Cholecalciferol (Vitamin D3 -) 1,000 unit PO DAILY [facility] Last Admin: 09/27/18 10:40 Dose: 1,000 unit Epoetin Dylon (Epogen -) 3,000 unit IVPUSH ONCE ONE Stop: 09/28/18 13:35 Furosemide (Lasix -) 40 mg PO DAILY [facility] Last Admin: 09/27/18 10:40 Dose: 40 mg Sodium Chloride (Normal Saline -) 250 mls @ 3,000 mls/hr IV PRN PRN PRN Reason: Hypotension during Dialysis Stop: 09/28/18 13:34 Oxycodone HCl (Roxicodone -) 5 mg PO Q6H PRN PRN Reason: PAIN LEVEL 6-10 Last Admin: 09/27/18 10:40 Dose: 5 mg Pantoprazole Sodium (Protonix -) 40 mg PO BID [facility] Last Admin: 09/27/18 10:41 Dose: 40 mg Sevelamer Carbonate (Renvela -) 1,600 mg PO TIDCM [facility] Last Admin: 09/27/18 10:40 Dose: 1,600 mg Trazodone HCl (Desyrel -) 50 mg PO HS [facility] Last Admin: 09/26/18 21:12 Dose: 50 mg - Objective Vital Signs: Vital Signs Temperature 98.4 F 09/27/18 06:00 Pulse Rate 102 H 09/27/18 06:00 Respiratory Rate 18 09/27/18 06:00 Blood Pressure 108/73 09/27/18 06:00 O2 Sat by Pulse Oximetry (%) 98 09/26/18 21:00 Constitutional: Yes: Calm Cardiovascular: Yes: Regular Rate and Rhythm, S1, S2 Respiratory: Yes: CTA Bilaterally Gastrointestinal: Yes: Normal Bowel Sounds, Soft Edema: Yes Neurological: Yes: Alert, Oriented Labs: CBC, BMP 09/25/18 06:00 09/25/18 06:00 INR, PTT INR 1.16 (0.83-1.09) H 09/24/18 10:00 Problem List - Problems (1) Ascites Assessment/Plan: GI consult HD tmw s/p paracentesis Code(s): R18.8 - OTHER ASCITES Qualifiers: Ascites type: other type Qualified Code(s): R18.8 - Other ascites (2) ESRD (end stage renal disease) on dialysis Assessment/Plan: HD per renal Code(s): N18.6 - END STAGE RENAL DISEASE; Z99.2 - DEPENDENCE ON RENAL DIALYSIS (3) Anemia Assessment/Plan: epogen Code(s): D64.9 - ANEMIA, UNSPECIFIED (4) Hepatocellular carcinoma Assessment/Plan: heme eval elevated LFT Code(s): C22.0 - LIVER CELL CARCINOMA
--- NOTE | 2018-09-27 17:32 | PN ---
Progress Note, Physician Chief Complaint: The patient appears weak, but comfortable at the time of exam. He reports no palpitation, SOB at rest or chest pain. Tele shows sinus rhythm with sinus tachycardia. History of Present Illness: 53 year-old man with a PMHx of HTN, DM, ESRD on HD, cirrhosis, recently diagnosed cholangiocarcinoma admitted 09/24/18 with worsening abdominal distention and dyspnea. His dyspnea improved markedly after paracentesis. He was found to have elevated troponin without chest pain. He has sinus tachycardia with low BP. Echocardiogram 09/24/2018: Hyperdynamic LV with increased LVEF. Mild intracavitary gradient noted. Normal RV. Normal LA and RA in size. No significant valvular abnormalities. No pericardial effusion. Mild aortic root dilatation. - Current Medication List Current Medications: Active Medications Albumin Human (Albumin Human 25%) 12.5 gm IVPB Q30M [facility] Cholecalciferol (Vitamin D3 -) 1,000 unit PO DAILY [facility] Last Admin: 09/27/18 10:40 Dose: 1,000 unit Epoetin Dylon (Epogen -) 3,000 unit IVPUSH ONCE ONE Stop: 09/28/18 13:35 Furosemide (Lasix -) 40 mg PO DAILY [facility] Last Admin: 09/27/18 10:40 Dose: 40 mg Sodium Chloride (Normal Saline -) 250 mls @ 3,000 mls/hr IV PRN PRN PRN Reason: Hypotension during Dialysis Stop: 09/28/18 13:34 Oxycodone HCl (Roxicodone -) 5 mg PO Q6H PRN PRN Reason: PAIN LEVEL 6-10 Last Admin: 09/27/18 17:14 Dose: 5 mg Pantoprazole Sodium (Protonix -) 40 mg PO BID [facility] Last Admin: 09/27/18 10:41 Dose: 40 mg Sevelamer Carbonate (Renvela -) 1,600 mg PO TIDCM [facility] Last Admin: 09/27/18 17:15 Dose: 1,600 mg Trazodone HCl (Desyrel -) 50 mg PO HS [facility] Last Admin: 09/26/18 21:12 Dose: 50 mg - Objective Vital Signs: Vital Signs Temperature 98.0 F 09/27/18 14:00 Pulse Rate 118 H 09/27/18 14:00 Respiratory Rate 18 09/27/18 06:00 Blood Pressure 79/47 L 09/27/18 14:00 O2 Sat by Pulse Oximetry (%) 98 09/26/18 21:00 General: Well developed. Chronic ill. No acute distress. Head: Normocephalic. Atraumatic, Neck: Supple. No JVD. No bruits. Heart: Normal S1, S2: Regular rhythm and tachycardia. No murmur. No gallop or rub. Lungs: Symmetrical air entry. Clear to auscultation. No crackle. No wheezing or rhonchi. Abdomen: Distended. Soft. Bowel sound positive. Extremities: Anasarca. 3+ edema. No clubbing or cyanosis. . Labs: CBC, BMP 09/25/18 06:00 09/25/18 06:00 INR, PTT INR 1.16 (0.83-1.09) H 09/24/18 10:00 Assessment/Plan 53 year-old man with a PMHx of HTN, DM, ESRD on HD, cirrhosis, recently diagnosed cholangiocarcinoma admitted 09/24/18 with worsening abdominal distention and dyspnea. His dyspnea improved markedly after paracentesis. He was found to have elevated troponin without chest pain. He has sinus tachycardia with low BP. Echocardiogram 09/24/2018: Hyperdynamic LV with increased LVEF. Mild intracavitary gradient noted. Normal RV. Normal LA and RA in size. No significant valvular abnormalities. No pericardial effusion. Mild aortic root dilatation. Elevated troponin-does not appear to be ACS. Echo showed hyperdynamic LV. Likely secondary to demand ischemia in setting of sinus tachycardia, anemia and ESRD on HD Conservative cardiac care. No further cardiac test recommended at this time. May try low dose metoprolol if BP is a little higher for heart rate control. May discontinue tele. Please call us for reconsult as needed.
--- NOTE | 2018-09-27 18:43 | PN ---
Teaching Attending Note Name of Resident: Beba Urrutia ATTENDING PHYSICIAN STATEMENT I saw and evaluated the patient. I reviewed the resident's note and discussed the case with the resident. I agree with the resident's findings and plan as documented. ASSESSMENT AND PLAN: 53 yr old man with HTN, hx of DM(last A1c 4.8), ESRD on HD, cirrhosis, chronic anemia, hx of GI bleeds recently dx'd with cholangiocarcinoma s/p therapeutic paracentesis witgh improvement in SOB. Problem List: Cholangiocarcinoma Ascitis ESRD on HD chronic anemia NIDDM HTN - currently c/o hypotension diastolic CHF await PDL1 staining ? gemzar based chemotherapy will follow
[2018-09-27] MEDS: traZODone HCL 50 MG TABLET (FP) PO SCH (21:20)
[2018-09-28 02:14] LABS: HBSAG SCREEN Negative (Negative); HEP A AB, IGM Negative (Negative); HEP B CORE AB, TOT Negative (Negative)
[2018-09-28] MEDS ORDERED: SODIUM CHLORIDE 250 ML IV PRN ×2 (06:53→16:23)
[2018-09-28] MEDS: oxyCODONE HCL 5 MG TABLET PO PRN ×2 (07:23→15:56)
[2018-09-28] MEDS: ALBUMIN HUMAN 25% 12.5 GM/50 ML VIAL IVPB SCH ×4 (08:00→09:51)
[2018-09-28] MEDS: EPOETIN ALFA 3,000 UNIT/1 ML ML IVPUSH ONE (08:41)
[2018-09-28 08:47] LABS: BASO % 0.4 % (0-2.0); EOS % 1.6 % (0-4.5); HEMATOCRIT 29.1 % (35.4-49); HEMOGLOBIN 9.8 GM/dL (11.7-16.9); MCH 33.2 pg (25.7-33.7); MCHC 33.6 g/dl (32.0-35.9); MEAN PLT VOLUME 10.1 fl (7.5-11.1); MONO % 12.8 % (3.8-10.2); NEUT % 74.2 % (42.8-82.8); PLATELET COUNT 224 K/MM3 (134-434); RBC 2.94 M/mm3 (4.00-5.60); RDW 18.8 % (11.9-15.9)
[2018-09-28 10:04] LABS: ALBUMIN 1.4 g/dl (3.4-5.0); ALK PHOS > 2330 U/L (45-117); ANION GAP 13 MMOL/L (8-16); BILIRUBIN,TOTAL 1.2 mg/dL (0.2-1); BLOOD UREA NITROGEN 63 mg/dL (7-18); CHLORIDE 96 mmol/L (98-107); CO2 22 mmol/L (21-32); GLUCOSE,RANDOM 102 mg/dL (74-106); POTASSIUM 4.6 mmol/L (3.5-5.1); SGOT/AST 567 U/L (15-37); SGPT/ALT 168 U/L (13-61); SODIUM 131 mmol/L (136-145)
[2018-09-28 10:18] LABS: CREATININE 9.1 mg/dL (0.55-1.3)
[2018-09-28 10:19] LABS: CALCIUM 6.9 mg/dL (8.5-10.1)
[2018-09-28 11:05] LABS: ANISOCYTOSIS 1+; MACROCYTOSIS 1+; PLATELET ESTIMATE NORMAL
[2018-09-28] MEDS: SEVELAMER CARBONATE 800 MG TAB (FP) PO SCH ×4 (11:23→17:49)
[2018-09-28] MEDS ORDERED: ALPRAZolam 2 MG TABLET PO PRN (11:29)
[2018-09-28] MEDS: FUROSEMIDE 40 MG TABLET (FP) PO SCH (11:43)
[2018-09-28] MEDS: CHOLECALCIFEROL (VITAMIN D3) 1,000 UNIT TABLET (FP) PO SCH (11:44)
[2018-09-28] MEDS: PANTOPRAZOLE 40 MG TABLET (FP) PO SCH ×2 (11:44→23:47)
[2018-09-28 12:24] LABS: CREATININE 3.2 mg/dL (0.55-1.3)
--- NOTE | 2018-09-28 14:03 | PN ---
Progress Note, Physician Chief Complaint: SOB AND ABDOMINAL PAIN/DISTENTION History of Present Illness: PREVIOUS EVENTS AND NOTES REVIEWED ALERT AND AWAKE, NAD DENIES CHEST PAIN OR SOB - Current Medication List Current Medications: Active Medications Alprazolam (Xanax -) 1 mg PO DAILY PRN PRN Reason: ANXIETY Cholecalciferol (Vitamin D3 -) 1,000 unit PO DAILY [facility] Last Admin: 09/28/18 11:44 Dose: 1,000 unit Furosemide (Lasix -) 40 mg PO DAILY [facility] Last Admin: 09/28/18 11:43 Dose: Not Given Sodium Chloride (Normal Saline -) 250 mls @ 3,000 mls/hr IV PRN PRN PRN Reason: Hypotension during Dialysis Stop: 09/28/18 19:00 Oxycodone HCl (Roxicodone -) 5 mg PO Q6H PRN PRN Reason: PAIN LEVEL 6-10 Last Admin: 09/28/18 07:23 Dose: 5 mg Pantoprazole Sodium (Protonix -) 40 mg PO BID [facility] Last Admin: 09/28/18 11:44 Dose: 40 mg Sevelamer Carbonate (Renvela -) 1,600 mg PO TIDCM [facility] Last Admin: 09/28/18 11:23 Dose: 1,600 mg Trazodone HCl (Desyrel -) 50 mg PO HS [facility] Last Admin: 09/27/18 21:20 Dose: 50 mg - Objective Vital Signs: Vital Signs Temperature 98 F 09/28/18 09:00 Pulse Rate 108 H 09/28/18 10:35 Respiratory Rate 18 09/28/18 10:35 Blood Pressure 111/55 L 09/28/18 10:35 O2 Sat by Pulse Oximetry (%) 97 09/27/18 21:00 Constitutional: Yes: No Distress, Calm Cardiovascular: Yes: Regular Rate and Rhythm Respiratory: Yes: Regular, CTA Bilaterally Gastrointestinal: Yes: Soft, Ascites, Distention Musculoskeletal: Yes: WNL Extremities: Yes: WNL Edema: Yes Edema: LLE: 1+, RLE: 1+ Neurological: Yes: Alert, Oriented Psychiatric: Yes: Alert, Oriented Labs: CBC, BMP 09/28/18 07:30 09/28/18 10:30 INR, PTT INR 1.16 (0.83-1.09) H 09/24/18 10:00 Problem List - Problems (1) Ascites Code(s): R18.8 - OTHER ASCITES Qualifiers: Ascites type: other type Qualified Code(s): R18.8 - Other ascites (2) Dyspnea Code(s): R06.00 - DYSPNEA, UNSPECIFIED Qualifiers: Dyspnea type: unspecified Qualified Code(s): R06.00 - Dyspnea, unspecified (3) ESRD (end stage renal disease) on dialysis Code(s): N18.6 - END STAGE RENAL DISEASE; Z99.2 - DEPENDENCE ON RENAL DIALYSIS (4) Cholangiocarcinoma Code(s): C22.1 - INTRAHEPATIC BILE DUCT CARCINOMA (5) Dialysis patient Code(s): Z99.2 - DEPENDENCE ON RENAL DIALYSIS (6) ESRD (end stage renal disease) Code(s): N18.6 - END STAGE RENAL DISEASE (7) History of duodenal ulcer Code(s): Z87.19 - PERSONAL HISTORY OF OTHER DISEASES OF THE DIGESTIVE SYSTEM (8) Hypertensive cardiomegaly with heart failure Code(s): I11.0 - HYPERTENSIVE HEART DISEASE WITH HEART FAILURE Assessment/Plan CARDIOLOGY RECOMMENDATIONS APPRECIATED, TROP TRENDING DOWN, TELE MONITORING DISCONTINUED NEPHROLOGY CONSULT APPRECIATED, CONT HD ON PENDING PARACENTESIS WITH IR CONSIDER POSSIBLE PLEURX CATHETER DUE TO FREQUENT PARACENTESIS MONITOR H/H HEME CONSULT RECOMMENDATIONS APPRECIATED
--- NOTE | 2018-09-28 16:23 | PN ---
Progress Note, Physician History of Present Illness: Pt seen and examined at bedside. He is awake and alert. He had HD today and went for paracentesis. He denies shortness of breath. He complains of lower ext edema. - Current Medication List Current Medications: Active Medications Alprazolam (Xanax -) 1 mg PO DAILY PRN PRN Reason: ANXIETY Cholecalciferol (Vitamin D3 -) 1,000 unit PO DAILY [facility] Last Admin: 09/28/18 11:44 Dose: 1,000 unit Furosemide (Lasix -) 40 mg PO DAILY [facility] Last Admin: 09/28/18 11:43 Dose: Not Given Sodium Chloride (Normal Saline -) 250 mls @ 3,000 mls/hr IV PRN PRN PRN Reason: Hypotension during Dialysis Stop: 09/28/18 19:00 Oxycodone HCl (Roxicodone -) 5 mg PO Q6H PRN PRN Reason: PAIN LEVEL 6-10 Last Admin: 09/28/18 15:56 Dose: 5 mg Pantoprazole Sodium (Protonix -) 40 mg PO BID [facility] Last Admin: 09/28/18 11:44 Dose: 40 mg Sevelamer Carbonate (Renvela -) 1,600 mg PO TIDCM [facility] Last Admin: 09/28/18 14:25 Dose: 1,600 mg Trazodone HCl (Desyrel -) 50 mg PO HS [facility] Last Admin: 09/27/18 21:20 Dose: 50 mg - Objective Vital Signs: Vital Signs Temperature 98.1 F 09/28/18 14:00 Pulse Rate 119 H 09/28/18 14:00 Respiratory Rate 18 09/28/18 10:35 Blood Pressure 74/54 L 09/28/18 14:00 O2 Sat by Pulse Oximetry (%) 97 09/28/18 09:00 Constitutional: Yes: Calm Eyes: Yes: Conjunctiva Clear HENT: Yes: Atraumatic Neck: Yes: Supple Cardiovascular: Yes: S1, S2 Respiratory: Yes: CTA Bilaterally Gastrointestinal: Yes: Soft Musculoskeletal: Yes: WNL Edema: Yes Edema: LLE: 2+, RLE: 2+ Neurological: Yes: Oriented Psychiatric: Yes: Oriented Labs: CBC, BMP 09/28/18 07:30 09/28/18 10:30 INR, PTT INR 1.16 (0.83-1.09) H 09/24/18 10:00 Problem List - Problems (1) Ascites Code(s): R18.8 - OTHER ASCITES Qualifiers: Ascites type: other type Qualified Code(s): R18.8 - Other ascites (2) ESRD (end stage renal disease) on dialysis Code(s): N18.6 - END STAGE RENAL DISEASE; Z99.2 - DEPENDENCE ON RENAL DIALYSIS (3) Diabetes Code(s): E11.9 - TYPE 2 DIABETES MELLITUS WITHOUT COMPLICATIONS Qualifiers: Diabetes mellitus type: type 2 Diabetes mellitus long-term insulin use: unspecified long-term insulin use status Diabetes mellitus complication status : with unspecified complications Qualified Code(s): E11.8 - Type 2 diabetes mellitus with unspecified complications (4) Cholangiocarcinoma Code(s): C22.1 - INTRAHEPATIC BILE DUCT CARCINOMA Assessment/Plan Current Medications Generic Name Dose Route Start Last Admin Trade Name Freq PRN Reason Stop Dose Admin Alprazolam 1 mg 09/28/18 11:29 Xanax - PO DAILY PRN ANXIETY Cholecalciferol 1,000 unit 09/27/18 10:00 09/28/18 11:44 Vitamin D3 - PO 1,000 unit DAILY KRISTEN Administration Furosemide 40 mg 09/25/18 10:00 09/28/18 11:43 Lasix - PO Not Given DAILY KRISTEN Sodium Chloride 250 mls @ 3,000 mls/hr 09/28/18 06:53 Normal Saline - IV 09/28/18 19:00 PRN PRN Hypotension during Dialysis Oxycodone HCl 5 mg 09/25/18 10:44 09/28/18 15:56 Roxicodone - PO 5 mg Q6H PRN Administration PAIN LEVEL 6-10 Pantoprazole Sodium 40 mg 09/24/18 22:00 09/28/18 11:44 Protonix - PO 40 mg BID KRISTEN Administration Sevelamer Carbonate 1,600 mg 09/24/18 17:30 09/28/18 14:25 Renvela - PO 1,600 mg TIDCM KRISTEN Administration Trazodone HCl 50 mg 09/24/18 22:00 09/27/18 21:20 Desyrel - PO 50 mg HS KRISTEN Administration Impression 1. ESRD 2. DM 3. ascites 4. HTN 5. obesity 6. anemia 7. iron deficiency 8. CHF 9. anemia 10. non compliance 11. liver mass 12. hx GI bleed 13. diabetic nephropathy 14. adenocarcinoma 15. nstemi Plan - will arrange for HD again tomorrow for volume - cont lasix on non HD days - oncology follow up - will need follow up for recurrent ascites after discharge - will follow
--- NOTE | 2018-09-28 17:09 | CON.GI ---
Consult Consult Specialty:: GI Referred by:: Hospitalist Service Reason for Consultation:: Suspected HCC / Cholangiocarcinoma - History of Present Illness Chief Complaint: Ascites History of Present Illness: 53M admitted for evaluation of abdominal distention. He has a history of decompensated liver cirrhosis as well as suspected HCC / Cholangiocarcinoma. he is being evaluated By Dr. Franko Lane, who will be referring him to the [facility] for further evaluation. I offered an EGD at his last visit 08/29 to exclude an upper GI source given prior history of large antral ulcer and that the liver biopsy performed revealed adenomacarcinoma of ? biliary / upper GI origin as opposed to HCC. He refused the exam at that time. He had an AFP tumor marker of 48,417 05/29 and 14,935 in 2017 and most recently 07/29 AFP tumor marker was > 70K. He has apparently been non complaint with follow-up. Liver chemistries have been abnormal for quite some time. He denies a family history of cancer. He had PD catheter removed surgically during last admission as well and it was at that time he had liver biopsy. He saqib required large volume paracenteses and underwent paracentesis today. He denies focal complaints. - History Source History Provided By: Patient, Medical Record - Past Medical History Cardio/Vascular: Yes: HTN, Hyperlipdemia Gastrointestinal: Yes: GI Bleed (s/p EGD 01/26: ) Renal/: Yes: Renal Failure, Renal Inusuff, Hemodialysis Heme/Onc: Yes: Cancer (Suspected HCC / Cholangiocarcinoma) Endocrine: Yes: Diabetes Mellitus - Past Surgical History Past Surgical History: Yes: AV Fistula/Graft Additional Surgical History: Surgical removal of PD catheter - Alcohol/Substance Use Hx Alcohol Use: No History of Substance Use: reports: None - Smoking History Smoking history: Never smoked Have you smoked in the past 12 months: No Aproximately how many cigarettes per day: 0 - Social History ADL: Independent Place of : [facility] History of Recent Travel: No Home Medications - Allergies Allergies/Adverse Reactions: Allergies Allergy/AdvReac Type Severity Reaction Status Date / Time Penicillins Allergy Intermediate Verified 09/24/18 09:46 - Home Medications Home Medications: Ambulatory Orders Sevelamer Carbonate [Renvela -] 1,600 mg PO TID 01/27/18 traZODone HCL [Trazodone HCl] 50 mg PO HS 04/07/18 Pantoprazole Sodium 40 mg PO BID 05/04/18 Furosemide [Lasix] 40 mg PO DAILY 08/18/18 Family Disease History - Family Disease History Family Disease History: Diabetes: Brother (2, 1 with CVA, 1 healthy), Heart Disease: Father (: 62: CHF), Other: Father, Mother (Alive: wasnt clear as to her med. problems), Brother Review of Systems - Review of Systems Cardiovascular: denies: Chest Pain Respiratory: denies: SOB Gastrointestinal: reports: Bloating. denies: Abdominal Pain, Diarrhea, Dysphagia, Indigestion, Nausea, Rectal Bleeding, Vomiting Physical Exam-GI Vital Signs: Vital Signs Temperature 98.1 F 09/28/18 14:00 Pulse Rate 119 H 09/28/18 14:00 Respiratory Rate 18 09/28/18 10:35 Blood Pressure 74/54 L 09/28/18 14:00 O2 Sat by Pulse Oximetry (%) 97 09/28/18 09:00 Constitutional: Yes: Calm Eyes: No: Sclera Icterus Cardiovascular: Yes: Tachycardia Respiratory: Yes: CTA Bilaterally Gastrointestinal Inspection: Yes: Distention, Scars. No: Hernia ...Auscultate: Yes: Normoactive Bowel Sounds ...Palpate: Yes: Tenderness ...Percussion: No: Tympanitic Edema: Yes Edema: LLE: 2+, RLE: 2+ Neurological: Yes: Alert, Oriented. No: Asterixis Labs: CBC, BMP 09/28/18 07:30 09/28/18 10:30 INR, PTT INR 1.16 (0.83-1.09) H 09/24/18 10:00 Hepatic Panel Total Bilirubin 1.2 mg/dL (0.2-1) H 09/28/18 07:30 AST 567 U/L (15-37) H 09/28/18 07:30 ALT 168 U/L (13-61) H 09/28/18 07:30 Alkaline Phosphatase > 2330 U/L (45-117) H 09/28/18 07:30 Albumin 1.4 g/dl (3.4-5.0) L 09/28/18 07:30 Problem List - Problems (1) Hepatocellular carcinoma Assessment/Plan: With biopsies revealing Adenocarcinoma. The ALP of >2000 with only mild elevation of bilirubin is suggestive of a diffusely infiltrative liver process as opposed to primary biliary tract obstruction. We did discuss possible EGD again as on last visit. He stated that he wants a break and would think about it later down the line. Needs f/u with oncology: evaluation at [facility] to be arranged Fluid management per renal Will likely need continued therapeutic paracenteses Overall poor prognosis Patient can follow-up as an outpatient to arrange upper endoscopy Code(s): C22.0 - LIVER CELL CARCINOMA
--- NOTE | 2018-09-28 19:44 | PN ---
Progress Note (short form) - Note Progress Note: Patient seen and examined S/P 5 liters paracentesis mor comfortable,but somewhat hypotensive post procedure. No cytology sent . Last Vital Signs Temp Pulse Resp BP Pulse Ox 98.1 F 119 H 18 74/54 L 97 09/28/18 14:00 09/28/18 14:00 09/28/18 10:35 09/28/18 14:00 09/28/18 09:00 HEENT: right eye deviated Cor: RSR, No murmurs, No gallops Lungs: diminished breath sounds Abd:s/p paracentesis ; ascites Ext:No significant edema Skin: No rashes, Integument intact CBC, BMP 09/28/18 07:30 09/28/18 10:30 Current Medications Generic Name Dose Route Start Last Admin Trade Name Freq PRN Reason Stop Dose Admin Albumin Human 12.5 gm 09/29/18 16:30 Albumin Human 25% IVPB Q30M [facility]STEN Alprazolam 1 mg 09/28/18 11:29 Xanax - PO DAILY PRN ANXIETY Cholecalciferol 1,000 unit 09/27/18 10:00 09/28/18 11:44 Vitamin D3 - PO 1,000 unit DAILY [facility]ST[facility] Administration Epoetin Dylon 4,000 unit 09/29/18 16:23 Epogen - IVPUSH 09/29/18 16:24 ONCE ONE Furosemide 40 mg 09/25/18 10:00 09/28/18 11:43 Lasix - PO Not Given DAILY [facility]STEN Sodium Chloride 250 mls @ 3,000 mls/hr 09/28/18 16:23 Normal Saline - IV 09/29/18 16:23 PRN PRN Hypotension during Dialysis Oxycodone HCl 5 mg 09/25/18 10:44 09/28/18 15:56 Roxicodone - PO 5 mg Q6H PRN Administration PAIN LEVEL 6-10 Pantoprazole Sodium 40 mg 09/24/18 22:00 09/28/18 11:44 Protonix - PO 40 mg BID [facility] Administration Sevelamer Carbonate 1,600 mg 09/24/18 17:30 09/28/18 17:49 Renvela - PO 1,600 mg TIDCM K[facility]STEN Administration Trazodone HCl 50 mg 09/24/18 22:00 09/27/18 21:20 Desyrel - PO 50 mg HS [facility]RISTEN Administration Impression: Adenoca of liver - likely combination of HCC and cholangioca S/P paracentesis ESRD-H.D. Anemia Likely chemotherapy candidate , but will refer to [facility] liver team for assessment and thoughts.
[2018-09-28] MEDS ORDERED: diphenhydrAMINE HCL 25 MG CAPSULE (FP) PO PRN (20:06)
--- NOTE | 2018-09-28 20:06 | HOSP ---
Physical Examination Vital Signs: Vital Signs Temperature 98.1 F 09/28/18 14:00 Pulse Rate 119 H 09/28/18 14:00 Respiratory Rate 18 09/28/18 10:35 Blood Pressure 74/54 L 09/28/18 14:00 O2 Sat by Pulse Oximetry (%) 97 09/28/18 09:00 Labs: CBC, BMP 09/28/18 07:30 09/28/18 10:30 Hospitalist Encounter Assessment: I was informed by nurse that patient fell at around 710pm when he was on toilet. Patient reported that he fell on his left upper and lower extremity. He denied any trauma to head or LOC. He was conscious for entire fall. On exam, no tenderness on palpation of all extremities, including wrists b/l. No evidence of trauma to head. Patient is AAox3. Informed nurse to maintain fall precautions and to offer assistance with using toilet.
[2018-09-28] MEDS: traZODone HCL 50 MG TABLET (FP) PO SCH (23:47)
[2018-09-29] MEDS: EPOETIN ALFA 3,000 UNIT/1 ML ML IVPUSH ONE (07:21)
[2018-09-29] MEDS: ALBUMIN HUMAN 25% 12.5 GM/50 ML VIAL IVPB SCH (07:21)
[2018-09-29] MEDS: SEVELAMER CARBONATE 800 MG TAB (FP) PO SCH ×2 (07:22→08:50)
[2018-09-29 07:53] VITALS: BP 94/62; PULSE 115; TEMP 99.1
[2018-09-29] MEDS ORDERED: EPOETIN ALFA 2,000 UNIT/1 ML VIAL IVPUSH ONE (16:23)
[2018-09-29] MEDS ORDERED: ALBUMIN HUMAN 25% 12.5 GM/50 ML VIAL IVPB SCH (16:30)
== END 2018-09-29 09:05 | disposition left against medical advice (07) | DRG 435 ==
LOC: JER 09:24 → JERBED 10:53 → J4W 15:31 → J5S 09-29 00:33
PROVIDERS: ADMIT Family Medicine; ATTEND Family Medicine
PROC: 0W9G3ZX Drainage of Peritoneal Cavity, Percutaneous Approach, Diagnostic (ICD-10-PCS; principal; 2018-09-24)
PROC: 5A1D70Z Performance of Urinary Filtration, Intermittent, Less than 6 Hours Per Day (ICD-10-PCS; 2018-09-25)
PROC: 0W9G3ZX Drainage of Peritoneal Cavity, Percutaneous Approach, Diagnostic (ICD-10-PCS; 2018-09-28)
PROC: 5A1D70Z Performance of Urinary Filtration, Intermittent, Less than 6 Hours Per Day (ICD-10-PCS; 2018-09-28)
DX: C22.0 Liver cell carcinoma (principal); N18.6 End stage renal disease; I21.4 Non-ST elevation (NSTEMI) myocardial infarction; R18.8 Other ascites; I13.2 Hypertensive heart and chronic kidney disease with heart failure and with stage 5 chronic kidney disease, or end stage renal disease; I50.30 Unspecified diastolic (congestive) heart failure; I24.8 Other forms of acute ischemic heart disease; D64.9 Anemia, unspecified; R16.0 Hepatomegaly, not elsewhere classified; R00.0 Tachycardia, unspecified; E78.5 Hyperlipidemia, unspecified; E11.21 Type 2 diabetes mellitus with diabetic nephropathy; E66.9 Obesity, unspecified; Z68.28 Body mass index [BMI] 28.0-28.9, adult; E61.1 Iron deficiency; K26.7 Chronic duodenal ulcer without hemorrhage or perforation; E11.22 Type 2 diabetes mellitus with diabetic chronic kidney disease; R74.8 Abnormal levels of other serum enzymes; K74.60 Unspecified cirrhosis of liver; Z91.19 Patient's noncompliance with other medical treatment and regimen; Z99.2 Dependence on renal dialysis; W18.30XA Fall on same level, unspecified, initial encounter; Y92.230 Patient room in hospital as the place of occurrence of the external cause
CPT/HCPCS: 36415; 49083; 71045-TC-FY; 71275-TC; 76942-TC; 80048; 80053; 82565; 82803; 83605; 84484; 84520; 85025; 85610; 85730; 86704; 86706; 86708; 86803; 87040; 87340; 93005; 93010; 93306-TC; 99284-25; J0131; J0885; P9047

== ENCOUNTER → 2018-10-04 | Day surgery (SDC) | payer BC | END | disposition home or self-care (01) | LOC: JRADIR 11:00 | PROVIDERS: ATTEND Internal Medicine | PROC: 0W9G3ZZ Drainage of Peritoneal Cavity, Percutaneous Approach (ICD-10-PCS; principal; 2018-10-04) | PROC: BW40ZZZ Ultrasonography of Abdomen (ICD-10-PCS; 2018-10-04) | DX: R18.8 Other ascites (principal) | CPT/HCPCS: 76942-TC ==

== ENCOUNTER 2018-10-06 09:24 | Inpatient (IN) | payer BC ==
[2018-10-06 09:36] VITALS: BMI 26.4
[2018-10-06 09:42] VITALS: TEMP 97.3
[2018-10-06] MEDS ORDERED: SODIUM CHLORIDE 0.9% 500 ML INFUS.BAG IV ONE (09:44)
[2018-10-06 10:11] LABS: BASO % 0.7 % (0-2.0); EOS % 0.4 % (0-4.5); HEMATOCRIT 25.4 % (35.4-49); MCH 32.7 pg (25.7-33.7); MCHC 31.6 g/dl (32.0-35.9); MEAN CELL VOLUME 103.6 fl (80-96); MEAN PLT VOLUME 10.8 fl (7.5-11.1); NEUT % 71.9 % (42.8-82.8); PLATELET COUNT 384 K/MM3 (134-434); RBC 2.45 M/mm3 (4.00-5.60); RDW 19.8 % (11.9-15.9); WHITE BLOOD COUNT 11.9 K/mm3 (4.0-10.0)
[2018-10-06 10:17] LABS: VENOUS PC02 35.2 mmHg (38-52); VENOUS PO2 27.9 mmHg (28-48)
[2018-10-06] MEDS ORDERED: PANTOPRAZOLE SODIUM 40 MG VIAL IVPUSH ONE ×2 (10:17→13:05)
[2018-10-06] MEDS ORDERED: VANCOMYCIN 1,500 MG in DEXTROSE 5%-WATER - 500 ML IVPB ONE (10:19)
[2018-10-06] MEDS ORDERED: AZTREONAM 2 GM in DEXTROSE 5%-WATER 100 ML IVPB ONE (10:19)
[2018-10-06 10:20] LABS: VENOUS PH 7.23 (7.32-7.42)
--- NOTE | 2018-10-06 10:28 | PDOC ---
Attending Attestation - Medical Decision Making EXAM#: TYPE/EXAM: RESULT: [id number] RAD/CHEST X-RAY PORTABLE* Chest: Sepsis A single AP view the chest reveals little change since the prior exam of 2017. Again noted is the weak inspiration with right line, normal heart, normal aorta and normal shayne. The some increased markings at the left base which on CT show evidence of atelectasis and infiltrate with fluid. Correlation recommended. Reported By: Dedrick Burnette MD 10/06/18 1037 Documentation prepared by Neda Bennett, acting as medical physics professor for Bob Braga MD <Neda Bennett - Last Filed: 10/06/18 13:51> - Resident Resident Name: Donny Bass - ED Attending Attestation I have performed the following: I have examined & evaluated the patient, The case was reviewed & discussed with the resident, I agree w/resident's findings & plan, Exceptions are as noted - HPI HPI: 10/06/18 12:24 The patient is a 53 year old male, with a significant past medical history of ESRD (HD- ,), HTN, DM, GI Bleed, Anemia, Former ETOH Abuse, hepatic cholangiocarcinoma, cirrhosis, who presents to the emergency department with generalized weakness and hematemesis. Per brother, pt vomited twice this morning , both large volumes of bright red blood. EMS reports that pt was lethargic upon their arrival and hypotensive. BP 60/40 en route. Pt arrived to ED minimally responsive. Vitals initially notable for hypotension and tachycardia, as well as tachypnea. Pt received 1L NS with no improvement in BP. 2U uncrossed blood given for presumed upper GI bleed. Pt with declining mental status and inability to protect airway. Intubated with 8.0 tube. Pt with worsening BP, 50/30. Given 2 pushes of IV epinephrine during RSI to sustain BP Triple lumen CVC placed under sterile conditions in R IJ. Levophed gtt started - Physicial Exam PE: 10/06/18 12:34 "GENERAL: Obtunded, + respiratory distress HEAD: No signs of trauma EYES: EOMI, sclera icteric ENT: Auricles normal inspection, hearing grossly normal, nares patent, oropharynx clear without exudates. Moist mucosa NECK: Nontender, no stepoffs, Normal ROM, supple, no lymphadenopathy, JVD, or masses LUNGS: Breath sounds equal, clear to auscultation bilaterally. No wheezes, and no crackles HEART: Regular rate and rhythm, normal S1 and S2, no murmurs, rubs or gallops ABDOMEN: + fluid wave, distended, nontender EXTREMITIES: Normal range of motion, no edema. No clubbing or cyanosis. No cords, erythema, or tenderness NEUROLOGICAL: moves all extremities SKIN: Warm, Dry, normal turgor, no rashes or lesions noted." - Critical Care Time Total Critical Care Time: 240 Critical Care Statement: The care of this patient involved high complexity decision making to prevent further life threatening deterioration of the patient 's condition and/or to evaluate & treat vital organ system(s) failure or risk of failure. - Medical Decision Making 10/06/18 12:35 53 M with hypotension, tachycardia, tachypnea in the context of 2 episodes of hematemesis this morning. GI bleed w/ hemorrhagic shock - Pt with no prior EGDs, possible variceal bleed given advanced liver failure. - PPI and octreotide gtt started - 2u uncrossed blood given - GI Dr. Love (covering for Dr. Beavers) consulted, case discussed, she will see pt in ICU Sepsis - Lactate 12 - likely 2/2 liver failure + severe sepsis - given ascites, will tx SBP - Covered broadly with vanc and aztreonam (pen allergy) - Levophed gtt started via triple lumen CVC Respiratory failure - Intubated - Vent settings set to hyperventilate given lactic acidosis Dispo: ICU - Discussed with ICU resident Viral 10/06/18 12:40 Dr. Brandt streeter for admission 10/06/18 13:23 Pt persistently hypotensive, maxed out on levo and vaso gtt 10/06/18 14:00 Pt's HCP, brother, now at bedside. Pt's mother initially stated that she wanted all measures of care provided to pt. HCP now states that pt had previously expressed that he did not want a breathing tube or chest compressions. After extensive discussion with family, pt has been made DNR/DNI. 10/06/18 15:12 HCP and family have decided to make pt comfort measures only. Requesting extubation, cessation of all medications other than comfort measures. <Bob Braga - Last Filed: 10/09/18 00:20>
[2018-10-06] MEDS ORDERED: OCTREOTIDE ACETATE 1,200 MCG in DEXTROSE 5%-WATER - 488 ML IVPB SCH ×2 (10:30→11:00)
[2018-10-06] MEDS ORDERED: PANTOPRAZOLE SODIUM 80 MG in SODIUM CHLORIDE 100 ML IVPB SCH (10:30)
[2018-10-06 10:31] LABS: INR 1.36 (0.83-1.09); PROTHROMBIN TIME (PATIENT) 16.1 SEC (9.7-13.0)
[2018-10-06] MEDS ORDERED: RAPID SEQUENCE INTUBATION KIT NR ONE (10:32)
[2018-10-06 10:34] LABS: ACTIVATED PTT 33.1 SECONDS (25.2-36.5)
[2018-10-06] MEDS ORDERED: KETAMINE HCL 200 MG/20 ML VIAL ONE (10:36)
[2018-10-06 11:03] LABS: ALBUMIN 1.3 g/dl (3.4-5.0); ALK PHOS 1694 U/L (45-117); ANION GAP 24 MMOL/L (8-16); BILIRUBIN,TOTAL 1.2 mg/dL (0.2-1); BLOOD UREA NITROGEN 75 mg/dL (7-18); CALCIUM 7.6 mg/dL (8.5-10.1); CHLORIDE 98 mmol/L (98-107); CO2 14 mmol/L (21-32); GLUCOSE,RANDOM 153 mg/dL (74-106); POTASSIUM 5.8 mmol/L (3.5-5.1); SGOT/AST 302 U/L (15-37); SGPT/ALT 105 U/L (13-61); SODIUM 136 mmol/L (136-145); TOT PROT 4.6 g/dl (6.4-8.2)
[2018-10-06 11:12] LABS: CREATININE 12.9 mg/dL (0.55-1.3)
[2018-10-06] MEDS ORDERED: PHENYLEPHRINE HCL 10 MG/1 ML SINGLE DOSE VIAL ONE (11:24)
[2018-10-06] MEDS ORDERED: NOREPINEPHRINE BITARTRATE 4,000 MCG in DEXTROSE 5%-WATER - 496 ML IV SCH (11:45)
[2018-10-06 11:59] LABS: ANISOCYTOSIS 1+; MACROCYTOSIS 1+; OVALOCYTE 1+; PLATELET ESTIMATE NORMAL
[2018-10-06] MEDS ORDERED: PANTOPRAZOLE SODIUM 40 MG/100 ML BAG IVPB ONE (12:02)
--- NOTE | 2018-10-06 12:38 | PDOC ---
History of Present Illness - General Chief Complaint: Shortness of Breath Stated Complaint: Shortness of Breath Time Seen by Provider: 10/06/18 09:29 History Source: Patient, Family (Brother and Mother at bedside) Exam Limitations: Clinical Condition - History of Present Illness Initial Comments: 53 y/o male BIBEMS from home complaining of difficulty breathing and weakness. Per EMS, pt was found to be hypotensive to 66/42 on scene. IV access was established and pt received a NS IVFB. On arrival, the pt stated he was having trouble breathing. Further stated the symptoms had been ongoing for the past two years. Refused versus unable to elaborate on what he was experiencing. Denied pain. Reported he went to dialysis yesterday. Pt then stopped answering questions. Would not participate in ROS or further PMH. Pt was recently discharged AMA from this facility on 09/28/2018 for similar symptoms. Per GI last note: H/o decompensated liver failure, suspected HCC versus cholangiocarcinoma. Being evaluated by Dr. Franko Lane and referred to [facility]. Refused GED on visit 08/29. Noncompliant with outpatient follow up. Past History - Past Medical History Allergies/Adverse Reactions: Allergies Allergy/AdvReac Type Severity Reaction Status Date / Time Penicillins Allergy Intermediate Verified 10/06/18 09:26 Home Medications: Ambulatory Orders Sevelamer Carbonate [Renvela -] 1,600 mg PO TID 01/27/18 traZODone HCL [Trazodone HCl] 50 mg PO HS 04/07/18 Pantoprazole Sodium 40 mg PO BID 05/04/18 Furosemide [Lasix] 40 mg PO DAILY 08/18/18 Anemia: Yes Asthma: No Cancer: Yes Cardiac Disorders: No CVA: No COPD: No CHF: No Dementia: No Diabetes: Yes Dialysis: Yes (,,sa) GI Disorders: Yes (gi bleed.) Disorders: Yes (on dialysis d,,thu) HTN: Yes Hypercholesterolemia: Yes Kidney Stones: (KIDNEY DISEASE) Liver Disease: Yes (liver mass.) Seizures: No Thyroid Disease: No - Surgical History Abdominal Surgery: Yes (liver biopsy) Appendectomy: No Cardiac Surgery: No Cholecystectomy: No Lung Surgery: No Orthopedic Surgery: No - Immunization History Td Vaccination: Yes TDAP Vaccination: Yes Immunization Up to Date: Yes - Suicide/Smoking/Psychosocial Hx Smoking Status: No Smoking History: Never smoked Have you smoked in the past 12 months: No Number of Cigarettes Smoked Daily: 0 Information on smoking cessation initiated: No Hx Alcohol Use: No Drug/Substance Use Hx: No Substance Use Type: None Hx Substance Use Treatment: No Review of Systems - Review of Systems Able to Perform ROS?: No Comments:: Pt unable or unwilling to participate. *Physical Exam - Vital Signs Last Vital Signs Temp Pulse Resp BP Pulse Ox 97.3 F L 122 H 32 H 91/73 100 10/06/18 09:26 10/06/18 10:00 10/06/18 10:00 10/06/18 10:00 10/06/18 10:00 Moderate Sedation - Procedure Monitoring Vital Signs: Procedure Monitoring Vital Signs Temperature 97.3 F L 10/06/18 09:26 Pulse Rate 122 H 10/06/18 10:00 Respiratory Rate 32 H 10/06/18 10:00 Blood Pressure 91/73 10/06/18 10:00 O2 Sat by Pulse Oximetry (%) 100 10/06/18 10:00 Procedures - Central Line Central Line Lumen: triple Central Line Position: internal jugular (R) Complications: none Post Central Line Insertion: sutured, good blood return, position confirmed w/ CXR - Intubation Intubation Method: orotracheal Blade used: Mac Tube Size (Fr): 8.0 Medications: Ketamine Tube position @ lip (cm): 24 Tube position confirmed by: Direct visualization, CO2 detector, Chest x-ray, Breath sounds Breath Sounds after Intubation: equal Intubation Complications: no complications Post Intubation Xray: Yes ED Treatment Course - LABORATORY CBC & Chemistry Diagram: 10/06/18 09:48 10/06/18 09:48 - ADDITIONAL ORDERS Additional order review: Laboratory Results 10/06/18 10/06/18 10/06/18 09:48 09:48 09:48 PT with INR INR PTT (Actin FS) VBG pH POC VBG pCO2 POC VBG pO2 Mixed VBG HCO3 Sodium Potassium Chloride Carbon Dioxide Anion Gap BUN Creatinine Creat Clearance w eGFR Random Glucose Lactic Acid Calcium Total Bilirubin AST ALT Alkaline Phosphatase Ammonia 540.60 H Troponin I 0.05 Total Protein Albumin Stool Occult Blood Negative Blood Type Antibody Screen Crossmatch 10/06/18 10/06/18 10/06/18 09:48 09:48 09:48 PT with INR INR PTT (Actin FS) VBG pH 7.23 L* POC VBG pCO2 35.2 L POC VBG pO2 27.9 L Mixed VBG HCO3 14.1 L* Sodium 136 Potassium 5.8 H Chloride 98 Carbon Dioxide 14 L Anion Gap 24 H BUN 75 H Creatinine 12.9 H* Creat Clearance w eGFR 4.12 Random Glucose 153 H Lactic Acid 14.4 H* Calcium 7.6 L Total Bilirubin 1.2 H AST 302 H ALT 105 H Alkaline Phosphatase 1694 H Ammonia Troponin I Total Protein 4.6 L Albumin 1.3 L Stool Occult Blood Blood Type Antibody Screen Crossmatch 10/06/18 10/06/18 09:48 09:40 PT with INR 16.10 H INR 1.36 H PTT (Actin FS) 33.1 VBG pH POC VBG pCO2 POC VBG pO2 Mixed VBG HCO3 Sodium Potassium Chloride Carbon Dioxide Anion Gap BUN Creatinine Creat Clearance w eGFR Random Glucose Lactic Acid Calcium Total Bilirubin AST ALT Alkaline Phosphatase Ammonia Troponin I Total Protein Albumin Stool Occult Blood Blood Type O POSITIVE Antibody Screen Negative Crossmatch See Detail 10/06/18 09:48 RBC 2.45 L MCV 103.6 H MCHC 31.6 L RDW 19.8 H MPV 10.8 Neutrophils % 71.9 Lymphocytes % 17.0 D Monocytes % 10.0 Eosinophils % 0.4 Basophils % 0.7 - RADIOLOGY Radiology Studies Ordered: Category Date Time Status CHEST X-RAY PORTABLE* [RAD] Stat Radiology 10/06/18 09:43 Completed - Medications Given in the ED: ED Medications Discontinued Medications Generic Name Dose Route Start Last Admin Trade Name Freq PRN Reason Stop Dose Admin Sodium Chloride 500 ml 10/06/18 09:44 10/06/18 10:05 Normal Saline - IV 10/06/18 09:45 500 ml ONCE ONE Administration Medical Decision Making - Medical Decision Making *Reviewed vital signs, nursing notes, and prior visit documentation (if available). 53 y/o male with h/o untreated liver failure and ESRD presenting for shortness of breath and weakness. Pt unable or unwilling to provide details or additional symptoms. Hypotensive enroute. On arrival, pt found to be hypotensive, tachycardic, and tachypneic. SPO2 was 98% on room air. Physical exam as described above. No pleural effusion or pneumothorax observed on POCUS. Vital signs concerning for sepsis without readily identifiable course. Ordered ED sepsis protocol labs and 500cc IVFB given ESRD history. Vancomycin and Aztreonam antibiotics ordered as pt is allergic to penicillin. Brother arrived at bedside and reported the pt had an episode of vomiting bright red blood hours prior to calling 911. Ordered Octreotide and Protonix with concern for possible UGIB. This could potentially be related to hepatic disease. Notably however, the pt did not have an BRBPR or melena on rectal exam , nor did he have any dried blood in the oropharynx. Hypotension persisted despite initial IVFB. Ordered second line placement and wide open IVF gtts at both sites. Pt became more obtunded and stopped holding his head up. Concern for pending respiratory failure given persisted tachypnea. ED attending discussed DNR/DNI status with mother and brother. Both requested full code status. Also indicated second brother, the pts healthcare proxy, was on his way to the hospital. Pt was intubated using ketamine and rocuronium. Required epinephrine pushes to achieve systolic above 100 prior to intubation. Tube was placed on first attempt and pt connected to a ventilator. Pt was placed on 100% FiO2 at 20 bpm given acidoic status on VBG. Pt did not require post procedure sedation. Hypotension persisted despite the large fluid bolus. A triple lumen central line catheter was placed in the pts right IJ. Ordered levophed, which was titrated to maximum dose without achieve systolic BP above 80. ED attending contacted ICU consulting team and paged admitting private physician. ICU accepted the consult. Measured systolic BP of 33. Ordered vasopressin, which was also titrated to maximum dose without achieving a systolic BP above 80. Pts healthcare proxy arrived at bedside. Both ICU and ED teams discussed current clinical status, including grave vitals and nonreassuring laboratory values. Family then discussed amongst themselves privately before electing to make the pt comfort care only. Request the pt to be extubated and all medical therapy to be withdrawn aside from comfort medication. Private attendings PA arrived at bedside. Verbally appraised of the pts HPI, ED course, and current plan of management. Agreed with plan to make pt comfort care only with morphine drip. Hospital nursing clean up supervisor report the extubation could not be able to be performed on a med/surg floor, but rather required an ICU bed. No beds were initially available. Pt was maintained on ventilator with pressors until an ICU bed was made available. Pt was then transferred to the unit. *DC/Admit/Observation/Transfer Diagnosis at time of Disposition: Septic shock, Need for comfort care - Discharge Dispostion Disposition: Condition at time of disposition: Critical Decision to Admit order: Yes - Referrals - Patient Instructions - Post Discharge Activity
[2018-10-06] MEDS ORDERED: VASOPRESSIN 50 UNITS in SODIUM CHLORIDE 97.5 ML IVPB SCH (13:00)
--- NOTE | 2018-10-06 13:06 | CONSULT ---
Consultation: REQUESTING PROVIDER: CONSULT REQUEST: HISTORY OF PRESENT ILLNESS: REVIEW OF SYSTEMS: PHYSICAL EXAMINATION Vital Signs - 24 hr 10/06/18 10/06/18 10/06/18 09:26 09:35 09:45 Temperature 97.3 F L Pulse Rate 58 L 112 H Pulse Rate [ 115 H Apical] Respiratory 16 36 H 48 H Rate Blood Pressure 88/58 L 94/57 L Blood Pressure 68/53 L [Left Arm] O2 Sat by Pulse 100 97 98 Oximetry (%) 10/06/18 10:00 Temperature Pulse Rate Pulse Rate [ 122 H Apical] Respiratory 32 H Rate Blood Pressure Blood Pressure 91/73 [Left Arm] O2 Sat by Pulse 100 Oximetry (%) Active Medications Generic Name Dose Route Start Last Admin Trade Name Freq PRN Reason Stop Dose Admin Pantoprazole Sodium 80 mg/ 100 mls @ 10 mls/hr 10/06/18 10:30 Sodium Chloride IVPB Q10H KRISTEN 8 MG/HR Octreotide Acetate 1,200 mcg/ 500 mls @ 20.83 mls/hr 10/06/18 11:00 Dextrose IVPB Q24H KRISTEN Protocol 50 MCG/HR Norepinephrine Bitartrate 4, 500 mls @ 37.5 mls/hr 10/06/18 11:45 000 mcg/ Dextrose IV TITR KRISTEN Protocol 5 MCG/MIN Vasopressin 50 units/ Sodium 100 mls @ 4 mls/hr 10/06/18 13:00 Chloride IVPB ASDIR KRISTEN Protocol 2 UNITS/HR ASSESSMENT/PLAN: Dispo: Visit type - Emergency Visit Emergency Visit: Yes Care time: The patient presented to the Emergency Department on the above date and was hospitalized for further evaluation of their emergent condition. - New Patient This patient is new to me today: Yes Date on this admission: 10/06/18 - Critical Care Critical Care patient: Yes Total Critical Care Time (in minutes): 40 Critical Care Statement: The care of this patient involved high complexity decision making to prevent further life threatening deterioration of the patient 's condition and/or to evaluate & treat vital organ system(s) failure or risk of failure.
--- NOTE | 2018-10-06 13:49 | PN ---
Progress Note (short form) - Note Progress Note: Pulm/CCM Called by ER team to evaluate patient for ICU admission as patient is intubated , on pressors, and possibly having an upper GI bleed as per family. Patient's brother who is the healthcare proxy came and expressed patient's wishes were to not be intubated and/or live on life supports. he also expressed patient did not want to have CPR done if he needed it. Patient is known to me as he is my clinic patient at [facility]. Risks, benefits, and alternatives discussed in detail with brother and other family at bedside and they do not want any interventions including IVF pressors intubation chest compressions or dialysis. Patient will be compassionately weaned from ventilator and placed on morphine drip. Patient can go to the floor given withdrawal of care/comfort measures only. Case discussed with Dr. Mahoney and Dr. Quezada.
--- NOTE | 2018-10-06 14:58 | HP ---
Admitting History and Physical - Primary Care Physician PCP: Martín Carlton - Admission Chief Complaint: non-verbal, as per family at bedside vomiting blood and syncopal episode at home History of Present Illness: Patient is a 53 y/o male with past medical history of ESRD, HTN, DM, GI bleed, ETOH abuse, hepatic cholangiocarcinoma cirrhosis. As per brother patient had 2 witnessed episodes of hematemesis at 0400 and 0800. Episodes witnessed by patient . At 0900 patient fainted at home with LOC. Patient call 911 and patient brought to [facility] ED. As per ED music intern resident was awake and alert and answering selective question. Labs show mild leukocytosis, lactic acid 14.4 , elevated BUN/Cr. Patient then became AMS and was intubed and TLC placed to R IJ. Received total of 3U PRBC transfused in ED. Currently on levophed and vasopressin and continues to be hypotensive. Patient family wishes for resident to be DNR and have all medical life sustaining assistance discontinued. DNR form signed by patient brother who is his health care proxy. History Source: Family Member Limitations to Obtaining History: Clinical Condition, Intubated - Past Medical History Cardiovascular: Yes: HTN, Hyperlipdemia Gastrointestinal: Yes: GI Bleed (s/p EGD 01/26: ) Renal/: Yes: Renal Failure, Renal Inusuff, Hemodialysis Heme/Onc: Yes: Cancer (Suspected HCC / Cholangiocarcinoma) Endocrine: Yes: Diabetes Mellitus - Past Surgical History Past Surgical History: Yes: AV Fistula/Graft - Advance Directives Advance Directives: Yes: Health Care Proxy - Smoking History Smoking history: Never smoked Have you smoked in the past 12 months: No Aproximately how many cigarettes per day: 0 - Alcohol/Substance Use Hx Alcohol Use: No History of Substance Use: reports: None - Social History ADL: Independent History of Recent Travel: No <Dori Jacome - Last Filed: 10/06/18 14:49> Home Medications <Dori Jacome - Last Filed: 10/06/18 14:49> <Martín Carlton - Last Filed: 10/06/18 18:31> - Allergies Allergies/Adverse Reactions: Allergies Allergy/AdvReac Type Severity Reaction Status Date / Time Penicillins Allergy Intermediate Verified 10/06/18 09:26 - Home Medications Home Medications: Ambulatory Orders Sevelamer Carbonate [Renvela -] 1,600 mg PO TID 01/27/18 traZODone HCL [Trazodone HCl] 50 mg PO HS 04/07/18 Pantoprazole Sodium 40 mg PO BID 05/04/18 Furosemide [Lasix] 40 mg PO DAILY 08/18/18 Family Disease History - Family Disease History Family Disease History: Diabetes: Brother (2, 1 with CVA, 1 healthy), Heart Disease: Father (: 62: CHF), Other: Father, Mother (Alive: wasnt clear as to her med. problems), Brother <Dori Jacome - Last Filed: 10/06/18 14:49> Review of Systems Unable to obtain ROS, reason: due to clinical condition <Dori Jacome - Last Filed: 10/06/18 14:49> Physical Examination Vital Signs: Vital Signs Temperature 97.3 F L 10/06/18 09:26 Pulse Rate 114 H 10/06/18 13:20 Respiratory Rate 26 H 10/06/18 13:59 Blood Pressure 61/16 L 10/06/18 13:20 O2 Sat by Pulse Oximetry (%) 100 10/06/18 12:55 Eyes: Yes: Other (no pupillary response to light) Neck: Yes: Trachea Midline Cardiovascular: Yes: Regular Rate and Rhythm Respiratory: Yes: CTA Bilaterally, Intubated, Mechanically Ventilated Gastrointestinal: Yes: Soft, Ascites, Distention Extremities: Yes: Delayed Capillary Refill Edema: No Integumentary: Yes: Rash (b/l lower extremity) Neurological: Yes: Unresponsive (currently intubated) Labs: CBC, BMP 10/06/18 09:48 10/06/18 09:48 <Dori Jacome - Last Filed: 10/06/18 14:49> Vital Signs: Vital Signs Temperature 97.3 F L 10/06/18 09:26 Pulse Rate 107 H 10/06/18 15:15 Respiratory Rate 22 H 10/06/18 15:35 Blood Pressure 74/33 L 10/06/18 15:15 O2 Sat by Pulse Oximetry (%) 98 10/06/18 15:15 Labs: CBC, BMP 10/06/18 09:48 10/06/18 09:48 <Martín Carlton Last Filed: 10/06/18 18:31> Problem List - Problems (1) Septic shock Code(s): A41.9 - SEPSIS, UNSPECIFIED ORGANISM; R65.21 - SEVERE SEPSIS WITH SEPTIC SHOCK (2) Ascites Code(s): R18.8 - OTHER ASCITES Qualifiers: Ascites type: other type Qualified Code(s): R18.8 - Other ascites (3) Cholangiocarcinoma Code(s): C22.1 - INTRAHEPATIC BILE DUCT CARCINOMA (4) ESRD (end stage renal disease) on dialysis Code(s): N18.6 - END STAGE RENAL DISEASE; Z99.2 - DEPENDENCE ON RENAL DIALYSIS (5) Anemia Code(s): D64.9 - ANEMIA, UNSPECIFIED <Dori Jacome - Last Filed: 10/06/18 14:49> - Problems (1) Hematemesis Code(s): K92.0 - HEMATEMESIS (2) Need for comfort care Code(s): CUE5700 - (3) Septic shock Code(s): A41.9 - SEPSIS, UNSPECIFIED ORGANISM; R65.21 - SEVERE SEPSIS WITH SEPTIC SHOCK (4) Abnormal liver CT Code(s): R93.2 - ABNORMAL FINDINGS ON DX IMAGING OF LIVER AND BILIARY TRACT (5) Ascites Code(s): R18.8 - OTHER ASCITES Qualifiers: Ascites type: other type Qualified Code(s): R18.8 - Other ascites (6) Dialysis patient Code(s): Z99.2 - DEPENDENCE ON RENAL DIALYSIS (7) ESRD (end stage renal disease) Code(s): N18.6 - END STAGE RENAL DISEASE (8) History of duodenal ulcer Code(s): Z87.19 - PERSONAL HISTORY OF OTHER DISEASES OF THE DIGESTIVE SYSTEM (9) Hypertensive cardiomegaly with heart failure Code(s): I11.0 - HYPERTENSIVE HEART DISEASE WITH HEART FAILURE <Martín Carlton - Last Filed: 10/06/18 18:31> Assessment/Plan -patient to be extubated as per family wishes -admit to ICU for comfort care measures -start on Morphine drip -palliative consult -monitor closely <Dori Jacome - Last Filed: 10/06/18 14:49> patient seen with jeanine Jacome and will start palliaitve comfort care with morphine drip patient is dnr dni <Martín Carlton - Last Filed: 10/06/18 18:31>
[2018-10-06 15:04] LABS: URINE APPEARANCE SLCLOUDY; URINE BILIRUBIN NEGATIVE (<2.0 mg/dL); URINE COLOR AMBER; URINE GLUCOSE (UA) NEGATIVE (NEGATIVE); URINE KETONE NEGATIVE (NEGATIVE); URINE LEUK ESTERASE NEGATIVE (NEGATIVE); URINE NITRITE NEGATIVE (NEGATIVE); URINE PROTEIN 1+ (NEGATIVE); URINE UROBILINOGEN NEGATIVE mg/dL (0.2-1.0)
[2018-10-06 15:07] LABS: EPI CELLS RARE /HPF (FEW); URINE BACTERIA RARE /hpf (NONE SEEN); URINE MUCUS RARE
[2018-10-06] MEDS ORDERED: MORPHINE 100 MG in SODIUM CHLORIDE 98 ML IVPB SCH (15:15)
--- NOTE | 2018-10-06 15:18 | CONSULT ---
Consult Consult Specialty:: Nephrology Reason for Consultation:: ESRD - History of Present Illness Chief Complaint: hematemesis History of Present Illness: Pt is a 53 year old male with pmhx of ESRD, adenocarcinoma, gi bleed, ascites, anemia, dm and htn who presents to the ER with two episodes of hematemesis last night. He was minimally responsive and was intubated. Pt was very hypotensive and was started on pressors. I was called to evaluate him today by the ICU team as he was hyperkalemic. He is sedated and intubated. Family including his mother and two brothers are at bedside. They want the ventilator to be removed and want the pt on comfort measures only. They do not want any more HD therapy. - History Source History Provided By: Medical Record - Past Medical History Cardio/Vascular: Yes: HTN, Hyperlipdemia Gastrointestinal: Yes: GI Bleed (s/p EGD 01/26: ) Renal/: Yes: Renal Failure, Renal Inusuff, Hemodialysis Endocrine: Yes: Diabetes Mellitus - Past Surgical History Past Surgical History: Yes: AV Fistula/Graft - Alcohol/Substance Use Hx Alcohol Use: No History of Substance Use: reports: None - Smoking History Smoking history: Never smoked Have you smoked in the past 12 months: No Aproximately how many cigarettes per day: 0 - Social History ADL: Independent History of Recent Travel: No Home Medications - Allergies Allergies/Adverse Reactions: Allergies Allergy/AdvReac Type Severity Reaction Status Date / Time Penicillins Allergy Intermediate Verified 10/06/18 09:26 - Home Medications Home Medications: Ambulatory Orders Sevelamer Carbonate [Renvela -] 1,600 mg PO TID 01/27/18 traZODone HCL [Trazodone HCl] 50 mg PO HS 04/07/18 Pantoprazole Sodium 40 mg PO BID 05/04/18 Furosemide [Lasix] 40 mg PO DAILY 08/18/18 Family Disease History - Family Disease History Family Disease History: Diabetes: Brother (2, 1 with CVA, 1 healthy), Heart Disease: Father (: 62: CHF), Other: Father, Mother (Alive: wasnt clear as to her med. problems), Brother Review of Systems Unable to obtain ROS, reason: lethargic Physical Exam Vital Signs: Vital Signs Temperature 97.3 F L 10/06/18 09:26 Pulse Rate 113 H 10/06/18 13:25 Respiratory Rate 26 H 10/06/18 13:59 Blood Pressure 62/34 L 10/06/18 13:25 O2 Sat by Pulse Oximetry (%) 100 10/06/18 13:25 Constitutional: Yes: No Distress, Calm Neck: Yes: Supple Cardiovascular: Yes: Tachycardia, S1, S2 Gastrointestinal: Yes: Soft Renal/: Yes: Incontinence Musculoskeletal: Yes: Muscle Weakness Edema: Yes Edema: LLE: 1+, RLE: 1+ Neurological: Yes: Lethargy Labs: CBC, BMP 10/06/18 09:48 10/06/18 09:48 Imaging - Results Chest X-ray: Report Reviewed Problem List - Problems (1) Shock Code(s): R57.9 - SHOCK, UNSPECIFIED (2) Hematemesis Code(s): K92.0 - HEMATEMESIS (3) ESRD (end stage renal disease) Code(s): N18.6 - END STAGE RENAL DISEASE Assessment/Plan Current Medications Generic Name Dose Route Start Last Admin Trade Name Freq PRN Reason Stop Dose Admin Pantoprazole Sodium 80 mg/ 100 mls @ 10 mls/hr 10/06/18 10:30 10/06/18 12:10 Sodium Chloride IVPB 10 mls/hr Q10H KRISTEN Administration 8 MG/HR Octreotide Acetate 1,200 mcg/ 500 mls @ 20.83 mls/hr 10/06/18 11:00 10/06/18 12:45 Dextrose IVPB 20.83 mls/hr Q24H KRISTEN Administration Protocol 50 MCG/HR Norepinephrine Bitartrate 4, 500 mls @ 37.5 mls/hr 10/06/18 11:45 10/06/18 13 :20 000 mcg/ Dextrose IV 35 mcg/min TITR KRISTEN 262.5 mls/hr Titration Protocol 5 MCG/MIN Vasopressin 50 units/ Sodium 100 mls @ 4 mls/hr 10/06/18 13:00 10/06/18 13:20 Chloride IVPB 2.4 units/hr ASDIR KRISTEN 4.8 mls/hr Administration Protocol 2 UNITS/HR Epinephrine 1,000 mcg/ 250 mls @ 118.5 mls/hr 10/06/18 13:30 Dextrose IVPB ASDIR KRISTEN Protocol 0.1 MCG/KG/MIN Morphine Sulfate 100 mg/ 100 mls @ 1 mls/hr 10/06/18 15:15 Sodium Chloride IVPB TITR KRISTEN Protocol 1 MG/HR Impression 1. ESRD 2. DM 3. ascites 4. HTN 5. obesity 6. anemia 7. iron deficiency 8. CHF 9. anemia 10. non compliance 11. liver mass 12. hx GI bleed 13. diabetic nephropathy 14. adenocarcinoma 15. nstemi 16. hematemesis 17. respiratory failure Plan - had a long discussion with the patients family and the medical team. Family would like pt to be made comfort measures only as they say he did not want to have any artificial measures - they do not want any more dialysis - they are aware of his adenocarcinoma - discussed with ICU team Dr Quezada
[2018-10-06] MEDS ORDERED: MORPHINE SULFATE 2 MG/ML VIAL IVPUSH ONE (15:35)
[2018-10-06 15:37] VITALS: PULSE 107
[2018-10-06 15:38] VITALS: BP 74/33
[2018-10-06] MEDS ORDERED: NOREPINEPHRINE BITARTRATE 4 MG/4 ML ML IV ONE (15:52)
--- NOTE | 2018-10-06 16:25 | PN ---
Progress Note (short form) - Note Progress Note: Patient made DNR/DNI/Comfort measures only all drips stopped no electrical activity on potline monitor and patient with no visual respirations family at bedside no pupillary reflex no corneal reflex no visible chest wall rise no heart or lung sounds heard No electrical activity on potline monitor Time of : 1620 ODN to be called by RN
--- NOTE | 2018-10-06 16:47 | EKG ---
Test Reason : Blood Pressure : / mmHG Vent. Rate : 123 BPM Atrial Rate : 123 BPM P-R Int : 136 ms QRS Dur : 116 ms QT Int : 346 ms P-R-T Axes : 010 270 081 degrees QTc Int : 495 ms POOR DATA QUALITY, INTERPRETATION MAY BE ADVERSELY AFFECTED SINUS TACHYCARDIA LEFT AXIS DEVIATION PULMONARY DISEASE PATTERN ABNORMAL ECG NO PREVIOUS ECGS AVAILABLE Confirmed by LIZETH ALLEN MD ([id number]) on 10/06/2018 4:47:08 PM Referred By: Confirmed By:LIZETH ALLEN MD
[2018-10-06] MEDS ORDERED: SODIUM BICARBONATE 8.4% 50 MEQ/50 ML DISP.SYRIN IVPUSH ONE (19:17)
[2018-10-06] MEDS ORDERED: EPINEPHrine 1:10,000 (P-F SYR) 1 MG/10 ML DISP.SYRIN IVPUSH ONE ×3 (19:18→19:20)
== END 2018-10-06 16:20 | disposition expired | DRG 871 ==
LOC: JER 09:24 → OBSVTOIN 13:02 → JERBED 13:02 → JICU 16:07
PROVIDERS: ADMIT Family Medicine; ATTEND Family Medicine
PROC: 5A1935Z Respiratory Ventilation, Less than 24 Consecutive Hours (ICD-10-PCS; principal; 2018-10-06)
PROC: 0BH17EZ Insertion of Endotracheal Airway into Trachea, Via Natural or Artificial Opening (ICD-10-PCS; 2018-10-06)
PROC: 05HM33Z Insertion of Infusion Device into Right Internal Jugular Vein, Percutaneous Approach (ICD-10-PCS; 2018-10-06)
PROC: 30233N1 Transfusion of Nonautologous Red Blood Cells into Peripheral Vein, Percutaneous Approach (ICD-10-PCS; 2018-10-06)
DX: A41.9 Sepsis, unspecified organism (principal); R65.21 Severe sepsis with septic shock; N18.6 End stage renal disease; J96.00 Acute respiratory failure, unspecified whether with hypoxia or hypercapnia; I21.4 Non-ST elevation (NSTEMI) myocardial infarction; R18.8 Other ascites; C22.1 Intrahepatic bile duct carcinoma; K92.0 Hematemesis; I13.2 Hypertensive heart and chronic kidney disease with heart failure and with stage 5 chronic kidney disease, or end stage renal disease; Z99.2 Dependence on renal dialysis; D64.9 Anemia, unspecified; I10 Essential (primary) hypertension; I95.9 Hypotension, unspecified; E78.5 Hyperlipidemia, unspecified; R00.0 Tachycardia, unspecified; R55 Syncope and collapse; D72.829 Elevated white blood cell count, unspecified; E11.21 Type 2 diabetes mellitus with diabetic nephropathy; E11.22 Type 2 diabetes mellitus with diabetic chronic kidney disease; I50.9 Heart failure, unspecified
CPT/HCPCS: 36415; 36430; 36511; 71045-TC-FY; 80053; 81003; 81015; 82140; 82272; 82803; 83605; 84484; 85025; 85610; 85730; 86850; 86900; 86901; 86922; 87040; 87086; 93005; 93010; 99285-25; P9038; P9058